=== PATIENT | female | born 1955 | race Caucasian/White ===

== ENCOUNTER → 2018-08-05 | Outpatient (CLI) | payer MEDICARE ==
--- NOTE | 2018-08-06 08:35 | CTL ---
EXAMINATION TYPE: CT Low Dose Lung DATE OF EXAM ORDERED: 08/05/2018 HISTORY: Long-term tobacco use. Lung cancer screening CT DLP: [address] CTDI: 1.72 mGy Automated exposure control for dose reduction was used. SCREENING VISIT: Initial study COMPARISON: None TECHNIQUE: Low dose computed tomography scan was performed through the chest at 1 mm thick sections a nd reconstructed images in the coronal plane at [address] DIAGNOSTIC QUALITY: Satisfactory FINDINGS: LUNG NODULES: None. There is 4 mm calcified nodule or granuloma superior aspect left lower lobe axial image 101. No suspi cious greater than 4 mm parenchymal nodules or masses are identified bilaterally. LUNGS: COPD: Severity: Mild to moderate Fibrosis: Severity: Minimal biapical and bibasilar linear Lymph nodes: None Other findings: None BILATERAL PLEURAL SPACE: Effusion: None Calcification: None Thickening: None Pneumothorax: None Elevated left hemidiaphragm is present. HEART: Heart Size: Normal Coronary calcification: Moderate versus coronary stents. Correlate clinically Pericardial effusion: Small OTHER FINDINGS: Upper abdomen: None Bony thorax: S-shaped scoliosis is present. Mild multilevel spurring is seen. Supraclavicular region: None Other: None IMPRESSION: No suspicious nodules or masses. FOLLOW UP CT CHEST RECOMMENDATION: Annual low-dose lung screening CT CT LUNG RAD: Lung-Rad 2 Benign Appearance or Behavior
== END | disposition home or self-care (01) ==
LOC: RADCTMAIN 15:42
PROVIDERS: ATTEND Family Medicine
DX: Z12.2 Encounter for screening for malignant neoplasm of respiratory organs (principal); Z87.891 Personal history of nicotine dependence

== ENCOUNTER → 2020-04-13 | Outpatient (CLI) | payer MEDICARE ==
[~2020-04-13] MED LIST: REGADENOSON 0.4 MG/5 ML SYRINGE IV ONE
--- NOTE | 2020-04-13 12:54 | EST ---
EXERCISE STRESS AGE: 65 SEX: M HT: 62" WT: 95 lbs. PROTOCOL: Lexiscan Cardiolite STAGE: DURATION OF EXERCISE: HEART RATE REST: 60 BLOOD PRESSURE REST: 150/80 MAXIMUM HEART RATE ACHIEVED: 85 MAXIMUM BLOOD PRESSURE: 161/87 85% MPHR: 100% MPHR: METS: INDICATIONS: Abnormal ECG. CLINICAL INFORMATION: Baseline rhythm is a sinus mechanism, normal axis and intervals, poor R wave progression. Baseline blood pressure 150/85 mmHg. Patient received an injection of Lexiscan. Electrocardiographic monitoring revealed no evidence of diagnostic ischemic ST deviation. Cardiolite was injected per protocol. CONCLUSION: 1. Nondiagnostic electrocardiograph stress testing. 2. Nuclear images will be reported separately. MMODL / IJN: [id number] /
--- NOTE | 2020-04-13 18:07 | NM ---
EXAMINATION TYPE: NM stress lexiscan cardiolite DATE OF EXAM: 04/13/2020 COMPARISON: Lexiscan 08/05/2016 HISTORY: Abnormal EKG TECHNIQUE: After the intravenous administration of 8 mCi Tc 99m Sestamibi - Cardiolite resting SPECT images acquired 55 minutes post injection. The patient received 0.4mg Lexiscan, 25.1 mCi Tc 99m Sestamibi - Stress images obtained [address] injection FINDINGS: Review of stress and rest SPECT images demonstrates reversible perfusion defect of the mid inferior w all. There is GI activity adjacent to the inferior wall, however area of reversible perfusion is conf irmed on Polar map. There is area of decreased activity of the anterior apical wall on rest images wh ich improves on stress, likely breast attenuation artifact. No fixed defects are seen. Gated analys is shows normal wall motion with an estimated left ventricular ejection fraction of 58 %. TID 1.02. IMPRESSION: 1. Reversible ischemia of the mid inferior wall. 2. Ejection fraction 58%.
== END | disposition home or self-care (01) ==
LOC: RADNMMAIN 04-07 08:51
PROVIDERS: ATTEND Family Medicine
DX: I25.9 Chronic ischemic heart disease, unspecified (principal)
CPT/HCPCS: 93017; 78452; A9500; J2785

== ENCOUNTER → 2020-05-08 | Outpatient (CLI) | payer MEDICARE ==
[2020-05-08 14:01] LABS: HGB 11.6 gm/dL (11.4-16.0); Hypochromasia Slight; MCH 29.5 pg (25.0-35.0); MCHC 31.4 g/dL (31.0-37.0); MCV 94.1 fL (80.0-100.0); Mean Platelet Volume 8.5; Platelet Count 213 k/uL (150-450); RBC 3.93 m/uL (3.80-5.40); RDW 15.1 % (11.5-15.5); WBC 11.5 k/uL (3.8-10.6)
[2020-05-08 14:11] LABS: African American GFR (CKD) >90 (>60 ml/min/1.73 sqM); Anion Gap 4 mmol/L; Blood Urea Nitrogen 21 mg/dL (7-17); Carbon Dioxide 30 mmol/L (22-30); Chloride 107 mmol/L (98-107); Non-African American GFR(CKD) >90 (>60 ml/min/1.73 sqM); Potassium 3.9 mmol/L (3.5-5.1); Sodium 141 mmol/L (137-145)
== END | disposition home or self-care (01) ==
LOC: LABPAT 11:56
PROVIDERS: ATTEND Internal Medicine Interventional Cardiology
DX: Z01.818 Encounter for other preprocedural examination (principal); R07.9 Chest pain, unspecified
CPT/HCPCS: 36415; 80051; 82565; 84520; 85027

== ENCOUNTER 2020-05-10 09:36 | Day surgery (SDC) | payer MEDICARE ==
[~2020-05-10 09:36] MED LIST changes: +ALPRAZolam 0.25 MG TAB PO PRN; +ALPRAZolam 0.5 MG TAB PO PRN; +ASPIRIN 325 MG TAB PO STA; +ATORVASTATIN 80 MG TAB PO STA; +NITROGLYCERIN SL TABS 0.4 MG TAB SUBLINGUAL PRN; -REGADENOSON 0.4 MG/5 ML SYRINGE IV ONE; +SODIUM CHLORIDE 0.9% 1,000 ML in EMPTY BAG 1 BAG IV ONE
[2020-05-10] MEDS ORDERED: methylPREDNISolone SOD SUCCI 125 MG/2 ML VIAL ONE (10:08)
[2020-05-10] MEDS ORDERED: diphenhydrAMINE 50 MG/ML 1 ML VIAL ONE (10:08)
[2020-05-10] MEDS ORDERED: diphenhydrAMINE 50 MG/ML 1 ML VIAL IVP ONE (10:12)
[2020-05-10] MEDS ORDERED: methylPREDNISolone SOD SUCCI 125 MG/2 ML VIAL IV STA (10:12)
[2020-05-10] MEDS ORDERED: HYDROmorphone 0.5 MG/0.5 ML SYRINGE IVP STA (11:18)
[2020-05-10] MEDS ORDERED: HYDROmorphone 1 MG/ML 1 ML SYRINGE ONE (11:26)
[2020-05-10] MEDS ORDERED: LIDOCAINE 1% INJ 10MG/ML (20 ML MDV) SQ ONE (12:08)
[2020-05-10] MEDS ORDERED: fentaNYL (PF) 50 MCG/ML 2 ML AMP ONE (12:10)
[2020-05-10] MEDS ORDERED: HEPARIN SODIUM 1,000 UN/ML (10ML VL) IV ONE (12:11)
[2020-05-10] MEDS ORDERED: MIDAZOLAM 2 MG/2 ML VIAL IV ONE (12:11)
[2020-05-10] MEDS ORDERED: fentaNYL (PF) 50 MCG/ML 2 ML AMP IV ONE (12:11)
[2020-05-10] MEDS ORDERED: VERAPAMIL SYRINGE (5 MG/10 ML) INTRAARTER ONE (12:11)
[2020-05-10] MEDS ORDERED: HEPARIN SODIUM 1,000 UN/ML (10ML VL) ONE (12:12)
[2020-05-10] MEDS ORDERED: MIDAZOLAM 2 MG/2 ML VIAL IVP ONE (12:21)
[2020-05-10] MEDS ORDERED: CLOPIDOGREL 75 MG TAB PO ONE (12:26)
[2020-05-10] MEDS ORDERED: CLOPIDOGREL 75 MG TAB ONE (12:26)
[2020-05-10] MEDS ORDERED: IOPAMIDOL-370 100ML BTL INJ ONE (12:36)
[2020-05-10] MEDS ORDERED: NITROGLYCERIN SL TABS 0.4 MG TAB SUBLINGUAL PRN ×2 (12:39→12:40)
[2020-05-10] MEDS ORDERED: CANNABIDIOL TOPICAL PRN (12:39)
[2020-05-10] MEDS ORDERED: ALPRAZolam 0.25 MG TAB PO PRN (12:39)
[2020-05-10] MEDS ORDERED: RX INFO: IV CONTRAST WAS GIVEN 1 EACH MISC MISCELLANE PRN (12:40)
[2020-05-10] MEDS ORDERED: ZOLPIDEM 5 MG TAB PO PRN (12:40)
[2020-05-10] MEDS ORDERED: ATROPINE SULFATE 0.1 MG/ML 10ML SYRINGE IV PRN (12:40)
[2020-05-10] MEDS ORDERED: MAG HYDROX/AL HYDROX/SIMETH 30 ML CUP PO PRN (12:40)
[2020-05-10] MEDS ORDERED: SODIUM CHLORIDE 0.9% 1,000 ML IV SCH (12:45)
--- NOTE | 2020-05-10 14:29 | CC ---
CARDIAC CATHETERIZATION REPORT DATE OF SERVICE: 05/10/2020 PERFORMING PHYSICIAN: Juventino Alex MD. PROCEDURE PERFORMED: 1. Selective right and left coronary angiogram. 2. Left heart catheterization. 3. Successful stenting of the proximal left circumflex using 2.5 x 12 mm Xience MARK with an excellent angiographic results and reduction of stenosis from 70% to 0%. INDICATION: This is a very pleasant, 65-year-old female patient with history of smoking who was experiencing symptoms of chest discomfort and underwent myocardial perfusion imaging stress test and that revealed inferior ischemia. Because of that, a heart catheterization was advised. APPROACH: Right radial artery. COMPLICATION: None. LEVEL OF SEDATION: Moderate with sedation length of 28 minutes. PROCEDURE DESCRIPTION: After obtaining an informed consent, the patient was brought to the cardiac lab animal technician. The right radial artery was cannulated using micropuncture technique and a micropuncture wire passed easily, then I placed a 6-Micronesian sheath 11 cm at the right radial artery. After that, I gave the patient 2 mg of verapamil IA and 5000 units of heparin IV. Selective right and left coronary angiogram performed using JR3.5 and JL3.5 catheters. After that, I did intervene on the left circumflex, please see a separate paragraph for that. After that, I did leave heart catheterization using 5-Micronesian pigtail catheter. The procedure was completed without any complication. SELECTIVE CORONARY ANGIOGRAM: 1. The RCA is a medium caliber vessel. The RCA is chronically occluded in the midportion. 2. The left main is angiographically normal. It bifurcates into LCX, ramus intermedius, and left anterior descending artery. 3. The LCX is a large caliber vessel, it is a codominant vessel. The LCX has a tight lesion in the proximal portion, appeared to be in the range of 70% to 80%. 4. The ramus intermedius is a moderate caliber vessel with mild disease only. 5. The LAD, the proximal, mid and distal LAD appeared to be angiographically normal. The LAD gives rise into a diagonal branch which seems to be angiographically normal. 6. Hemodynamic: The LVEDP about 12 mmHg without significant gradient across the aortic valve. PCI OF THE LEFT CIRCUMFLEX: Anticoagulation was achieved with heparin only with ACT monitoring. The left main was engaged using JL3.5 guide. I did wire the left circumflex using a run-through wire. After that, I did direct stenting of the lesion using 2.5 x 12 mm stent which was Xience where the stent was positioned under fluoroscopy guidance and deployed under 12 atmospheres for 20 seconds with the following angiogram showing excellent angiographic results and the procedure was completed without any complication. CONCLUSION: 1. Chronic total occlusion of the RCA. 2. Severe disease involving the proximal left circumflex. 3. Normal left anterior descending artery. 4. Successful stenting of the left circumflex as described above. POSTPROCEDURE MANAGEMENT: 1. Dual anti-platelet therapy. 2. Risk factors modifications. 3. Follow up with the patient. MMODL / IJN: [id number] /
[2020-05-10] MEDS: HYDROcodone/APAP 10-325MG 1 EACH TAB PO PRN ×2 (15:13→19:30)
[2020-05-10] MEDS: NICOTINE 21MG/24HR PATCH TRANSDERM SCH (18:05)
[2020-05-10] MEDS ORDERED: ATORVASTATIN 40 MG TAB PO SCH (21:00)
[2020-05-10] MEDS ORDERED: ZOLPIDEM 10 MG TAB PO SCH (21:00)
[2020-05-10] MEDS ORDERED: traZODone HCL 100 MG TAB PO SCH (21:00)
[2020-05-10] MEDS ORDERED: ZOLPIDEM 5 MG TAB PO SCH (22:00)
[2020-05-11] MEDS: HYDROcodone/APAP 10-325MG 1 EACH TAB PO PRN (03:57)
[2020-05-11 04:38] VITALS: RESP 16
[2020-05-11] MEDS: NICOTINE 21MG/24HR PATCH TRANSDERM SCH (07:46)
[2020-05-11 07:57] LABS: Basophils % (A) 0 %; Eosinophils % (A) 0 %; HCT 35.5 % (34.0-46.0); HGB 11.1 gm/dL (11.4-16.0); Lymphocytes # (A) 1.4 k/uL (1.0-4.8); Lymphocytes % (A) 8 %; MCH 29.4 pg (25.0-35.0); MCHC 31.3 g/dL (31.0-37.0); MCV 93.9 fL (80.0-100.0); Monocytes # (A) 0.4 k/uL (0-1.0); Monocytes % (A) 2 %; Neutrophils # (A) 14.8 k/uL (1.3-7.7); Neutrophils % (A) 89 %; Platelet Count 199 k/uL (150-450); RBC 3.78 m/uL (3.80-5.40); RDW 15.1 % (11.5-15.5); WBC 16.6 k/uL (3.8-10.6)
[2020-05-11 08:09] LABS: African American GFR (CKD) >90 (>60 ml/min/1.73 sqM); Anion Gap 5 mmol/L; Blood Urea Nitrogen 16 mg/dL (7-17); Calcium 8.7 mg/dL (8.4-10.2); Carbon Dioxide 26 mmol/L (22-30); Chloride 107 mmol/L (98-107); Glucose 194 mg/dL (74-99); Non-African American GFR(CKD) >90 (>60 ml/min/1.73 sqM); Potassium 3.5 mmol/L (3.5-5.1); Sodium 138 mmol/L (137-145)
[2020-05-11] MEDS ORDERED: HYDROcodone/APAP 10-325MG 1 EACH TAB PO PRN (08:14)
[2020-05-11] MEDS ORDERED: FAMOTIDINE 20 MG TAB PO SCH (09:00)
[2020-05-11] MEDS ORDERED: ASPIRIN 81 MG PO SCH (09:00)
[2020-05-11] MEDS ORDERED: METOPROLOL SUCCINATE (ER) 100 MG TAB.ER.24H PO SCH (09:00)
[2020-05-11 09:26] VITALS: BMI 17.5
[2020-05-11 09:27] VITALS: BP 153/78; PULSE 73; TEMP 97.5
[2020-05-11] MEDS ORDERED: CLOPIDOGREL 75 MG TAB PO SCH (12:00)
--- NOTE | 2020-05-11 12:55 | DS ---
DISCHARGE SUMMARY ADMISSION DATE: 05/10/2020. DISCHARGE DATE: 05/11/2020 BRIEF HISTORY: This is a very pleasant 65-year-old female patient who underwent yesterday a heart catheterization and stenting of the proximal left circumflex coronary artery. The procedure was performed from the right radial artery. The patient is going to be discharged home on dual anti-platelet therapy and I will follow up with the patient next week in the office. MMSJL / SIENNAN: [id number] /
== END 2020-05-11 10:06 | disposition home or self-care (01) ==
LOC: CATHCVL 09:36 → 3NCARDOBS 17:40 → CATHCVL 05-11 10:06
PROVIDERS: ATTEND Internal Medicine Interventional Cardiology
DX: I25.110 Atherosclerotic heart disease of native coronary artery with unstable angina pectoris (principal); I25.82 Chronic total occlusion of coronary artery; I10 Essential (primary) hypertension; R94.39 Abnormal result of other cardiovascular function study; E78.00 Pure hypercholesterolemia, unspecified; F17.210 Nicotine dependence, cigarettes, uncomplicated; E78.5 Hyperlipidemia, unspecified; Z91.048 Other nonmedicinal substance allergy status; Z91.09 Other allergy status, other than to drugs and biological substances; Z79.82 Long term (current) use of aspirin; Z79.899 Other long term (current) drug therapy; Z88.6 Allergy status to analgesic agent
CPT/HCPCS: 93458; 85347; 80048; 85025; C9600; C1887; C1769 ×2; C1874; S4990 ×2; J2250; J1200; J2930; J2001; J3010; J1644; J1170; Q9967

== ENCOUNTER 2020-08-16 19:02 | Observation (INO) | payer MEDICARE ==
[2020-08-16] MEDS ORDERED: ONDANSETRON 4 MG/2 ML VIAL IVP STA (19:20)
[2020-08-16] MEDS ORDERED: SODIUM CHLORIDE 0.9% 1,000 ML IV STA ×2 (19:20)
--- NOTE | 2020-08-16 19:23 | ED ---
Chest Pain HPI - General Chief Complaint: Chest Pain Stated Complaint: post heart cath-chest & neck pain Time Seen by Provider: 08/16/20 19:16 Source: patient, RN notes reviewed Mode of arrival: wheelchair Limitations: no limitations - History of Present Illness Initial Comments: This is a 65-year-old female with a history of smoking for many years with no diagnosis of COPD or emphysema also history of heart cath with stent in January of this year who presents with 4 days of nausea and dry heaves and now is sharp midsternal chest pains (the right was brought in by EMS. She does feel somewhat lightheaded dizzy and has a walker. No overt fevers chills or sweats. The pain does get worse when she moves or tries to take a deep breath. No trauma repor pma no other complaints or modifying factors at this time MD Complaint: chest pain, other - Related Data Home Medications Medication Instructions Recorded Confirmed Estradiol 2 mg PO DAILY 06/05/16 08/16/20 Famotidine 20 mg PO DAILY 06/05/16 08/16/20 Aspirin [Adult Low Dose Aspirin EC] 81 mg PO DAILY 05/05/20 08/16/20 Atorvastatin [Lipitor] 40 mg PO HS 05/05/20 08/16/20 Cannabidiol (Cbd) [Epidiolex] 1 dose TOPICAL DAILY PRN 05/05/20 08/16/20 HYDROcodone/APAP 10-325MG [[place] 1 tab PO QID PRN 05/05/20 08/16/20 10-325] Metoprolol Succinate (ER) [Toprol 100 mg PO DAILY 05/05/20 08/16/20 XL] Nitroglycerin Sl Tabs [Nitrostat] 0.4 mg SUBLINGUAL Q5M PRN 05/05/20 08/16/20 Zolpidem [Ambien] 10 mg PO HS 05/05/20 08/16/20 traZODone HCL 100 mg PO HS 05/05/20 08/16/20 ALPRAZolam [Xanax] 0.25 mg PO TID PRN 05/10/20 08/16/20 lisinopriL [Zestril] 5 mg PO DAILY 08/16/20 08/16/20 Previous Rx's Medication Instructions Recorded Clopidogrel [Plavix] 75 mg PO DAILY #90 tab 05/11/20 Allergies Allergy/AdvReac Type Severity Reaction Status Date / Time ibuprofen AdvReac NIGHTMARES Verified 08/16/20 20:44 Iodinated Contrast Media AdvReac Nausea & Verified 08/16/20 20:44 [Iodinated Contrast Media - Vomiting IV Dye] povidone-iodine AdvReac Nausea & Verified 08/16/20 20:44 [From Betadine] Vomiting soap [From Betadine] AdvReac Nausea & Verified 08/16/20 20:44 Vomiting Review of Systems ROS Statement: Those systems with pertinent positive or pertinent negative responses have been documented in the HPI. ROS Other: All systems not noted in ROS Statement are negative. EKG Findings - EKG Results: EKG: interpreted by DAWIT, sinus rhythm (Normal sinus rhythm 64. We'll 124 QRS duration 82 QT since QTC 404/416 possible left atrial enlargement no acute ST-T wave changes) Past Medical History Past Medical History: Chest Pain / Angina, COPD, Fibromyalgia, GERD/Reflux, Hyperlipidemia, Hypertension Additional Past Medical History / Comment(s): bulging disc back, scolosis, degenerative bone disease, curvature of skin History of Any Multi-Drug Resistant Organisms: None Reported Past Surgical History: Back Surgery, Breast Surgery, Hysterectomy, Orthopedic Surgery Additional Past Surgical History / Comment(s): LT BREAST BX stent to Left Cx by Dr Alex on 05/10/20 RCA totally occluded. LT KNEECAP SX. BACK INJECTIONS. SINUS SX. RT CTR Past Anesthesia/Blood Transfusion Reactions: No Reported Reaction Past Psychological History: Anxiety, Depression Smoking Status: Current every day smoker Past Alcohol Use History: None Reported Past Drug Use History: None Reported - Past Family History Mother Family Medical History: Cancer General Exam - General Exam Comments Initial Comments: Is a well-developed asthenic appearing female who is awake alert oriented 3 Limitations: no limitations General appearance: alert, anxious Head exam: Present: atraumatic, normocephalic, normal inspection Eye exam: Present: normal appearance, PERRL, EOMI. Absent: scleral icterus, conjunctival injection, periorbital swelling ENT exam: Present: mucous membranes dry Neck exam: Present: normal inspection, full ROM, other (No stridor JVD or bruits). Absent: tenderness, meningismus, lymphadenopathy Respiratory exam: Present: chest wall tenderness (Reproducible tenderness palpation on the right costal sternal costochondral margin no step-off or crepitation), decreased breath sounds. Absent: respiratory distress, wheezes, rales, rhonchi, stridor Cardiovascular Exam: Present: regular rate, normal rhythm, normal heart sounds. Absent: systolic murmur, diastolic murmur, rubs, gallop, clicks GI/Abdominal exam: Present: soft, normal bowel sounds. Absent: distended, tenderness, guarding, rebound, rigid Extremities exam: Present: normal inspection, full ROM, normal capillary refill. Absent: tenderness, pedal edema, joint swelling, calf tenderness Back exam: Present: normal inspection Neurological exam: Present: alert, oriented X3, CN II-XII intact Psychiatric exam: Present: normal affect, normal mood Skin exam: Present: warm, dry, intact, normal color. Absent: rash Course Vital Signs 08/16/20 08/16/20 08/16/20 19:10 19:20 21:13 Temperature 97.5 F L Pulse Rate 76 72 Pulse Rate [ 72 Lpn Private Duty ] Respiratory 16 20 Rate Blood Pressure 198/99 167/89 O2 Sat by Pulse 98 99 Oximetry - Reevaluation(s) Reevaluation #1: 08/16/20 22:28 Patient has had no further chest pain CAT scan was performed and is negative for PE. Chest Pain MDM - MDM I did review the imaging and report no acute findings. I did discuss case the patient family as well as Dr. Orellana. Patient will be admitted for further evaluation with cardiology consultation Critical Care Time Critical Care Time: Yes Total Critical Care Time: 31 Critical Care Time: 31 minutes of critical care time which includes initial presentation with history physical labs x-rays discussed with paramedics. Review of old charting multiple evaluations the patient discussed with the patient family regarding findings discussed with the main physician admission orders and documentation of the above Disposition Clinical Impression: Chest pain, Unstable angina pectoris Disposition: ADMITTED IP TO THIS HOSP Condition: Fair Referrals: Dakota Orellana MD [Primary Care Provider] - 1-2 days
[2020-08-16] MEDS ORDERED: HYDROmorphone 1 MG/ML 1 ML SYRINGE IVP STA (19:59)
[2020-08-16 20:07] LABS: Basophils # (A) 0.1 k/uL (0-0.2); Basophils % (A) 1 %; Eosinophils # (A) 0.1 k/uL (0-0.7); Eosinophils % (A) 1 %; HCT 41.9 % (34.0-46.0); Lymphocytes # (A) 4.1 k/uL (1.0-4.8); Lymphocytes % (A) 36 %; MCHC 33.5 g/dL (31.0-37.0); MCV 95.7 fL (80.0-100.0); Mean Platelet Volume 7.5; Monocytes # (A) 0.5 k/uL (0-1.0); Monocytes % (A) 4 %; Neutrophils # (A) 6.3 k/uL (1.3-7.7); Neutrophils % (A) 56 %; Platelet Count 318 k/uL (150-450); RBC 4.38 m/uL (3.80-5.40); RDW 15.7 % (11.5-15.5); WBC 11.2 k/uL (3.8-10.6)
[2020-08-16 20:22] LABS: ALT 21 U/L (4-34); AST 42 U/L (14-36); African American GFR (CKD) >90 (>60 ml/min/1.73 sqM); Alkaline Phosphatase 67 U/L (38-126); Anion Gap 6 mmol/L; Blood Urea Nitrogen 23 mg/dL (7-17); Calcium 9.4 mg/dL (8.4-10.2); Carbon Dioxide 23 mmol/L (22-30); Chloride 110 mmol/L (98-107); Creatine Kinase 59 U/L (30-135); Glucose 96 mg/dL (74-99); Lipase 325 U/L (23-300); Magnesium 1.9 mg/dL (1.6-2.3); Non-African American GFR(CKD) 83 (>60 ml/min/1.73 sqM); Potassium 3.7 mmol/L (3.5-5.1); Sodium 139 mmol/L (137-145); Total Bilirubin 0.4 mg/dL (0.2-1.3); Total Protein 7.1 g/dL (6.3-8.2)
--- NOTE | 2020-08-16 20:24 | XR ---
EXAMINATION TYPE: XR chest 2V DATE OF EXAM: 08/16/2020 COMPARISON: 10/18/2014. HISTORY: Chest pain. TECHNIQUE: Frontal and lateral views of the chest are obtained. FINDINGS: There is no focal air space opacity, pleural effusion, or pneumothorax seen. The cardiac silhouette size is within normal limits. The osseous structures are intact. IMPRESSION: No acute cardiopulmonary process.
--- NOTE | 2020-08-16 20:25 | XR ---
EXAM: Abdomen radiograph. HISTORY: Pain. TECHNIQUE: Supine AP view. COMPARISON: None available. FINDINGS: There are nondilated bowel loops with a nonobstructive pattern. There are no pathologic calcification s. No acute osseous abnormality seen. IMPRESSION: Nonobstructive bowel gas pattern.
[2020-08-16 20:26] LABS: Prothrombin Time 10.3 sec (9.0-12.0)
[2020-08-16 20:27] LABS: Partial Thromboplastin Time 23.2 sec (22.0-30.0)
[2020-08-16 20:39] LABS: D-Dimer 0.97 mg/L FEU (<0.60)
[2020-08-16] MEDS ORDERED: methylPREDNISolone SOD SUCCI 125 MG/2 ML VIAL IV STA (20:58)
[2020-08-16] MEDS ORDERED: FAMOTIDINE 20 MG/2 ML VIAL IV STA (20:58)
[2020-08-16] MEDS ORDERED: diphenhydrAMINE 50 MG/ML 1 ML VIAL IVP STA (20:58)
--- NOTE | 2020-08-16 21:56 | CT ---
EXAMINATION TYPE: CT angio chest DATE OF EXAM: 08/16/2020 9:44 PM COMPARISON: Same day radiographs. HISTORY: Chest pain elevated d-dimer CT DLP: 186.6 mGycm Automated exposure control for dose reduction was used. CONTRAST: CTA scan of the thorax is performed with IV Contrast, patient injected with 100 mL of Isovue 370, pul monary embolism protocol. MIP images are created and reviewed. FINDINGS: LUNGS: There is mild dependent atelectasis. Otherwise the lungs are grossly clear, there is no concer hiral parenchymal mass or nodule identified. There is moderate emphysematous changes. There is no ple ural effusion or pneumothorax seen. The tracheobronchial tree is patent. MEDIASTINUM: There is satisfactory enhancement of the pulmonary artery and its branches, there is no CT evidence for pulmonary embolism. There are no greater than 1 cm hilar or mediastinal lymph nodes. No pericardial effusion is seen. OTHER: No additional significant abnormality is seen. IMPRESSION: NO ACUTE PULMONARY EMBOLUS OR OTHER CARDIOPULMONARY ABNORMALITY.
[2020-08-16] MEDS ORDERED: NITROGLYCERIN SL TABS 0.4 MG TAB SUBLINGUAL PRN (22:30)
[2020-08-16] MEDS ORDERED: HEPARIN SOD,PORK IN 0.45% NACL 25,000 UNIT in 0.45% NACL 1 250ML.BAG IV SCH (22:30)
[2020-08-16] MEDS ORDERED: HEPARIN SODIUM,PORCINE 5,000 UNIT/ML 1 ML VIAL IV ONE (22:30)
[2020-08-16] MEDS ORDERED: ALPRAZolam 0.25 MG TAB PO PRN (22:33)
[2020-08-17 02:27] LABS: Cholesterol 115 mg/dL (<200); HDL Cholesterol 44 mg/dL (40-60); LDL Cholesterol,Calculated 59 mg/dL (0-99); Triglycerides 62 mg/dL (<150)
[2020-08-17] MEDS: HYDROcodone/APAP 10-325MG 1 EACH TAB PO PRN ×4 (04:33→20:19)
[2020-08-17] MEDS: FAMOTIDINE 20 MG TAB PO SCH (08:17)
[2020-08-17] MEDS: METOPROLOL SUCCINATE (ER) 100 MG TAB.ER.24H PO SCH (08:17)
[2020-08-17] MEDS: CLOPIDOGREL 75 MG TAB PO SCH (08:18)
[2020-08-17] MEDS: lisinopriL 5 MG TAB PO SCH (08:18)
[2020-08-17] MEDS ORDERED: ASPIRIN 325 MG TAB PO SCH (09:00)
[2020-08-17] MEDS ORDERED: DOBUTamine DRIP for NUC MED 500 MG in DEXTROSE/WATER 1 250ML.BAG IV ONE (09:00)
[2020-08-17] MEDS: ASPIRIN 81 MG PO SCH (09:12)
[2020-08-17] MEDS: NICOTINE 14MG/24HR PATCH TRANSDERM SCH (09:12)
--- NOTE | 2020-08-17 10:16 | P.CRDCN ---
History of Present Illness History of present illness: HISTORY OF PRESENTING ILLNESS This is a pleasant 65-year-old female past medical history significant for COPD, coronary artery disease s/p recent PCI 04/2020, hypertension, dyslipid emia and chronic nicotine dependence. She follows in the office with Dr. Alex, she actually had a tele-visit with him yesterday. We have been asked to see in consultation for chest pain. She states for the previous 4 days she has been experiencing abdominal pain, nausea, dry heaving and no appetite. No actual vomiting but persistent nausea. Yesterday she started feeling a discomfort in the epigastric/mid-sternal chest area that she felt radiated to her left jaw. Given her recent stent placement she became concerned prompting her to come to the ER. She states in the past when she needed a stent her pain was different. She denies associated shortness of breath, dizziness, palpitations or diaph oresis. The chest pain has resolved. In April of this year she underwent cardiac catheterization revealing stenosis of the proximal circumflex artery, LAD was angiographically normal and the RCA was chronically occluded in the mid- portion. She underwent successful PCI of the proximal circumflex at that time. She has been compliant with her dual anti-platelet therapy. DIAGNOSTICS EKG reveals sinus mechanism with no acute ST or T-wave abnormalities. Chest xray negative for an acute cardiopulmonary process. CTA negative for pulmonary embolism with grossly clear lungs. KUB revealed a nonobstructive gas pattern. Laboratory reviewed, WBC 11.2, hemoglobin 14, platelets 318, d-dimer 0.97, sodium 139, potassium 3.7, creatinine 0.76,magnesium 1.9, cardiac enzymes negative 3, NT proBNP 302, LDL 59, HDL 44 and lipase 325. Current cardiac medications include lisinopril 5 mg daily, atorvastatin 40 mg daily, toprol 100 mg daily, aspirin 81 mg daily and plavix 75 mg daily. REVIEW OF SYSTEMS At the time of my exam: CONSTITUTIONAL: Denies fever or chills. CARDIOVASCULAR: Denies chest pain, shortness of breath, orthopnea, PND or palpitations. RESPIRATORY: Denies cough. GASTROINTESTINAL: Denies abdominal pain, diarrhea, constipation, nausea or vomiting. MUSCULOSKELETAL: Denies myalgias. NEUROLOGIC: Denies numbness, tingling or weakness. ENDOCRINE: Denies fatigue, weight change, polydipsia or polyurina. GENITOURINARY: Denies burning, hematuria or urgency with micturation. HEMATOLOGIC: Denies history of anemia or bleeding. PHYSICAL EXAMINATION Blood pressure 110/65 heart rate 53 afebrile and maintaining oxygen saturation on room air. CONSTITUTIONAL: No apparent distress. HEENT: Head is normocephalic. Pupils are equal, round. Sclerae anicteric. Mucous membranes of the mouth are moist. No JVD. No carotid bruit. CHEST EXAMINATION: Lungs are clear to auscultation. No chest wall tenderness is noted on palpation or with deep breathing. Diminished bilaterally. HEART EXAMINATION: Regular rate and rhythm. S1, S2 heard. No murmurs, gallops or rub. ABDOMEN: Soft, nontender. Positive bowel sounds. EXTREMITIES: 2+ peripheral pulses, no lower extremity edema and no calf tenderness. NEUROLOGIC EXAMINATION: Patient is awake, alert and oriented x3. 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 However given her recent PCI we will pursue stress testing to assess for stress induced ischemia. Obtain 2D echocardiogram and doppler study to assess cardiac structure and function. Continue dual anti-platelet therapy as previously ordered. Smoking cessation recommended. If stress test is normal she can be discharged from a cardiac perspective. Follow up with Dr. Alex upon discharge. Ongoing management and evaluation per PCP of GI etiology of symptoms. Thank you kindly for this consultation. Nurse Practitioner note has been reviewed, I agree with a documented findings and plan of care. Patient was seen and examined. Past Medical History Past Medical History: Chest Pain / Angina, COPD, Fibromyalgia, GERD/Reflux, Hyperlipidemia, Hypertension Additional Past Medical History / Comment(s): bulging disc back, scolosis, degenerative bone disease, curvature of skin History of Any Multi-Drug Resistant Organisms: None Reported Past Surgical History: Back Surgery, Breast Surgery, Hysterectomy, Orthopedic Surgery Additional Past Surgical History / Comment(s): LT BREAST BX stent to Left Cx by Dr Alex on 05/10/20 RCA totally occluded. LT KNEECAP SX. BACK INJECTIONS. SINUS SX. RT CTR Past Anesthesia/Blood Transfusion Reactions: No Reported Reaction Past Psychological History: Anxiety, Depression Smoking Status: Current every day smoker Past Alcohol Use History: None Reported Past Drug Use History: None Reported - Past Family History Mother Family Medical History: Cancer Medications and Allergies Home Medications Medication Instructions Recorded Confirmed Type Estradiol 2 mg PO DAILY 06/05/16 08/16/20 History Famotidine 20 mg PO DAILY 06/05/16 08/16/20 History Aspirin [Adult Low Dose Aspirin EC] 81 mg PO DAILY 05/05/20 08/16/20 History Atorvastatin [Lipitor] 40 mg PO HS 05/05/20 08/16/20 History Cannabidiol (Cbd) [Epidiolex] 1 dose TOPICAL DAILY PRN 05/05/20 08/16/20 History HYDROcodone/APAP 10-325MG [[place] 1 tab PO QID PRN 05/05/20 08/16/20 History 10-325] Metoprolol Succinate (ER) [Toprol 100 mg PO DAILY 05/05/20 08/16/20 History XL] Nitroglycerin Sl Tabs [Nitrostat] 0.4 mg SUBLINGUAL Q5M PRN 05/05/20 08/16/20 History Zolpidem [Ambien] 10 mg PO HS 05/05/20 08/16/20 History traZODone HCL 100 mg PO HS 05/05/20 08/16/20 History ALPRAZolam [Xanax] 0.25 mg PO TID PRN 05/10/20 08/16/20 History Clopidogrel [Plavix] 75 mg PO DAILY #90 tab 05/11/20 08/16/20 Rx lisinopriL [Zestril] 5 mg PO DAILY 08/16/20 08/16/20 History Allergies Allergy/AdvReac Type Severity Reaction Status Date / Time ibuprofen AdvReac NIGHTMARES Verified 08/16/20 20:44 Iodinated Contrast Media AdvReac Nausea & Verified 08/16/20 20:44 [Iodinated Contrast Media - Vomiting IV Dye] povidone-iodine AdvReac Nausea & Verified 08/16/20 20:44 [From Betadine] Vomiting soap [From Betadine] AdvReac Nausea & Verified 08/16/20 20:44 Vomiting Physical Exam Vitals: Vital Signs Temp Pulse Pulse Resp BP Pulse Ox 08/17/20 05:26 98.1 F 53 L 16 110/65 98 08/17/20 04:06 97.4 F L 55 L 18 135/74 98 08/16/20 23:21 67 20 149/84 96 08/16/20 21:13 72 20 167/89 99 08/16/20 19:20 72 08/16/20 19:10 97.5 F L 76 16 198/99 98 Intake and Output 08/16/20 08/17/20 08/17/20 22:59 06:59 14:59 Intake Total 41.605 Balance 41.605 Intake: Intake, IV Titration 41.605 Amount Heparin Sod,Pork in 0.45% 41.605 NaCl 25,000 unit In 0.45 % NaCl 1 250ml.bag @ 12 UNITS/KG/HR 5.334 mls/hr IV .Q[facility]H [facility] Rx#: [id number] Other: Weight 44.452 kg Results 08/16/20 19:45 08/16/20 19:45 Cardiac Enzymes 08/16/20 08/16/20 08/16/20 Range/Units 19:45 19:45 22:46 AST 42 H (14-36) U/L Troponin I <0.012 <0.012 (0.000-0.034) ng/mL 08/17/20 Range/Units 01:33 AST (14-36) U/L Troponin I <0.012 (0.000-0.034) ng/mL Coagulation 08/16/20 08/17/20 Range/Units 19:45 05:22 PT 10.3 (9.0-12.0) sec APTT 23.2 76.3 H (22.0-30.0) sec Lipids 08/17/20 Range/Units 01:33 Triglycerides 62 (<150) mg/dL Cholesterol 115 (<200) mg/dL HDL Cholesterol 44 (40-60) mg/dL CBC 08/16/20 Range/Units 19:45 WBC 11.2 H (3.8-10.6) k/uL RBC 4.38 (3.80-5.40) m/uL Hgb 14.0 (11.4-16.0) gm/dL Hct 41.9 (34.0-46.0) % Plt Count 318 (150-450) k/uL Comprehensive Metabolic Panel 08/16/20 Range/Units 19:45 Sodium 139 (137-145) mmol/L Potassium 3.7 (3.5-5.1) mmol/L Chloride 110 H (98-107) mmol/L Carbon Dioxide 23 (22-30) mmol/L BUN 23 H (7-17) mg/dL Creatinine 0.76 (0.52-1.04) mg/dL Glucose 96 (74-99) mg/dL Calcium 9.4 (8.4-10.2) mg/dL AST 42 H (14-36) U/L ALT 21 (4-34) U/L Alkaline Phosphatase 67 (38-126) U/L Total Protein 7.1 (6.3-8.2) g/dL Albumin 4.0 (3.5-5.0) g/dL Current Medications Generic Name Dose Route Start Last Admin Trade Name Freq PRN Reason Stop Dose Admin Hydrocodone Bitart/Acetaminophen 1 each 08/16/20 22:33 08/17/20 09:16 Hydrocodone/Apap 10-325mg 1 Each Tab PO 1 each QID PRN Administration Pain Alprazolam 0.25 mg 08/16/20 22:33 08/16/20 23:21 Alprazolam 0.25 Mg Tab PO 0.25 mg TID PRN Administration Anxiety Aspirin 81 mg 08/17/20 09:00 08/17/20 09:12 Aspirin 81 Mg PO 81 mg DAILY JAKE Administration Atorvastatin Calcium 40 mg 08/17/20 21:00 Atorvastatin 40 Mg Tab PO HS JAKE Clopidogrel Bisulfate 75 mg 08/17/20 09:00 08/17/20 08:18 Clopidogrel 75 Mg Tab PO 75 mg DAILY JAKE Administration Estradiol 2 mg 08/17/20 09:00 08/17/20 08:16 Estradiol 0.5 Mg Tab PO 2 mg DAILY JAKE Administration Famotidine 20 mg 08/17/20 09:00 08/17/20 08:17 Famotidine 20 Mg Tab PO 20 mg DAILY JAKE Administration Dobutamine HCl/Dextrose 500 mg 250 mls @ 13.336 mls/hr 08/17/20 09:00 / IV Solution IV 08/18/20 03:44 .[id number] ONE Protocol 10 MCG/KG/MIN Lisinopril 5 mg 08/17/20 09:00 08/17/20 08:18 Lisinopril 5 Mg Tab PO 5 mg DAILY JAKE Administration Metoprolol Succinate 100 mg 08/17/20 09:00 11/19/20 08:17 Metoprolol Succinate (Er) 100 Mg Tab.Er.24h PO 100 mg DAILY JAKE Administration Nicotine 1 patch 08/17/20 09:00 08/17/20 09:12 Nicotine 14mg/24hr Patch TRANSDERM 1 patch DAILY JAKE Administration Nitroglycerin 0.4 mg 08/16/20 22:30 Nitroglycerin Sl Tabs 0.4 Mg Tab SUBLINGUAL Q5M PRN Chest Pain Trazodone HCl 100 mg 08/17/20 21:00 Trazodone Hcl 100 Mg Tab PO HS JAKE Zolpidem Tartrate 10 mg 08/17/20 21:00 Zolpidem 5 Mg Tab PO HS JAKE Intake and Output 08/16/20 08/17/20 08/17/20 22:59 06:59 14:59 Intake Total 41.605 Balance 41.605 Intake: Intake, IV Titration 41.605 Amount Heparin Sod,Pork in 0.45% 41.605 NaCl 25,000 unit In 0.45 % NaCl 1 250ml.bag @ 12 UNITS/KG/HR 5.334 mls/hr IV .Q24H [facility] Rx#: [id number] Other: Weight 44.452 kg 08/16/20 19:45 08/16/20 19:45
[2020-08-17] MEDS ORDERED: METOPROLOL TARTRATE 5 MG/5 ML VIAL IVP ONE (10:45)
[2020-08-17] MEDS ORDERED: ATROPINE SULFATE 0.1 MG/ML 10ML SYRINGE ONE (10:45)
--- NOTE | 2020-08-17 10:47 | ECHOF ---
Referral Reason:cp MEASUREMENTS -------- HEIGHT: 157.5 cm WEIGHT: 44.9 kg BP: RVIDd: 2.2 cm (< 3.3) IVSd: 0.8 cm (0.6 - 1.1) LVIDd: 3.5 cm (3.9 - 5.3) LVPWd: 1.0 cm (0.6 - 1.1) IVSs: 1.3 cm LVIDs: 2.3 cm LVPWs: 1.3 cm LA Diam: 4.3 cm (2.7 - 3.8) LAESV Index (A-L): 31.96 ml/m Ao Diam: 3.1 cm (2.0 - 3.7) AV Cusp: 1.8 cm (1.5 - 2.6) LA Diam: 3.6 cm (2.7 - 3.8) MV EXCURSION: 18.742 mm (> 18.000) MV EF SLOPE: 113 mm/s (70 - 150) EPSS: 0.4 cm MV E Ricardo: 0.63 m/s MV DecT: 198 ms MV A Ricardo: 0.41 m/s MV E/A Ratio: 1.52 RAP: 5.00 mmHg RVSP: 29.40 mmHg FINDINGS -------- Sinus rhythm. This was a technically good study. LV size, wall thickness and systolic function are normal, with an EF greater than 55%. The left lg tricular size is normal. The right ventricle is normal in size. The left atrial size is normal. The right atrial size is normal. The aortic valve is trileaflet, and appears structurally normal. No aortic stenosis or regurgitation. Mild mitral regurgitation is present. Mild tricuspid regurgitation present. Right ventricular systolic pressure is normal at < 35 mmHg. There is no pulmonic regurgitation present. The aortic root size is normal. There is no pericardial effusion. CONCLUSIONS -------- 1. LV size, wall thickness and systolic function are normal, with an EF greater than 55%. 2. The left ventricular size is normal. 3. The right ventricle is normal in size. 4. The left atrial size is normal. 5. The right atrial size is normal. 6. Mild mitral regurgitation is present. 7. Mild tricuspid regurgitation present. 8. There is no pulmonic regurgitation present. 9. The aortic root size is normal. 10. There is no pericardial effusion. SCHOOL CLEANER: Bridgett Esquivel RDCS
--- NOTE | 2020-08-17 13:43 | ECHOS ---
STRESS ECHOCARDIOGRAM LUMASON: - Vial INDICATIONS: Chest pain. MEDICATIONS: BASELINE HEART RATE: 54 BASELINE BLOOD PRESSURE: 119/70 MAXIMUM HEART RATE: 156 MAXIMUM BLOOD PRESSURE: 197/108 85% MPHR: 132 100% MPHR: 155 METS: N/A MAXIMUM STAGE REACHED: V TOTAL EXERCISE TIME: 13:08 CLINICAL INFORMATION: Baseline EKG shows sinus rhythm, normal axis, normal intervals. Patient was given intravenous dobutamine over a period of 13 minutes as per protocol. The patient also received 0.5 mg of atropine, achieved 85% of predicted maximal heart rate. Did not have any significant ST segment depression. Baseline echo shows normal left ventricular size, wall motion and systolic function. Post dobutamine infusion there is normal hyperdynamic response of all segments of myocardium noted. CONCLUSION: 1. Negative stress test by EKG criteria. 2. Negative dobutamine echo. MATHEUS / SIENNAN: [id number] /
[2020-08-17 15:00] VITALS: BMI 17.9
--- NOTE | 2020-08-17 17:32 | HP ---
HISTORY AND PHYSICAL This patient is a 65-year-old white female who has a strong family history of heart disease and nicotine addiction. She was getting chest pain radiating up to her neck as well as some shortness of breath. She was also complaining of some epigastric midsternal area and some vomiting at home, but this was different than the pain going to her neck. In April of this year she had cardiac catheterizations, had stenosis of the proximal circumflex artery. LAD was normal and RCA was occluded in the mid portion. She had PCI of the proximal circumflex at that time. She is compliant with her dual antiplatelet therapy but continues to smoke. CTA was negative for pulmonary embolism with grossly clear lungs. KUB showed nonobstructive bowels. Chest x-ray showed no acute pulmonary process. EKG showed no ST-T changes. REVIEW OF SYSTEMS: Fourteen-point review of systems negative except for mentioned in HPI. PHYSICAL EXAMINATION: Blood pressure 110 over 60s, heart rate in the 50s. Oxygenation is 97 on room air. CARDIOVASCULAR: S1, S2. LUNGS: Clear. GI: Soft. PSYCH: Flat mood and affect. She is crying. She appears to be depressed for some reason. NEUROLOGIC: Alert and oriented x3. EXTREMITIES: Two plus peripheral pulses. ABDOMEN: Soft. Positive bowel sounds. ASSESSMENT: 1. Chest pain atypical for angina. 2. Coronary artery disease, status post percutaneous coronary intervention of circumflex with INSTRUCTIONAL SPECIALIST of the RCA. 3. Abdominal pain, nausea. 4. Chronic obstructive pulmonary disease. 5. Hypertension. 6. Dyslipidemia. 7. Nicotine addiction. Smoking cessation. Stress test. Echo. Continue dual antiplatelets. Please see further orders. Will start depression pills, as she appears to be depressed. MMODL / IJN: [id number] /
[2020-08-17] MEDS: SERTRALINE 50 MG TAB PO SCH (20:22)
[2020-08-17] MEDS ORDERED: ATORVASTATIN 40 MG TAB PO SCH (21:00)
[2020-08-17] MEDS ORDERED: ZOLPIDEM 5 MG TAB PO SCH (21:00)
[2020-08-17] MEDS ORDERED: traZODone HCL 100 MG TAB PO SCH (21:00)
[2020-08-18] MEDS: HYDROcodone/APAP 10-325MG 1 EACH TAB PO PRN ×3 (02:46→14:21)
[2020-08-18] MEDS: METOPROLOL SUCCINATE (ER) 100 MG TAB.ER.24H PO SCH (08:45)
[2020-08-18] MEDS: NICOTINE 14MG/24HR PATCH TRANSDERM SCH (08:45)
[2020-08-18] MEDS: lisinopriL 5 MG TAB PO SCH (08:46)
[2020-08-18] MEDS: FAMOTIDINE 20 MG TAB PO SCH (08:46)
[2020-08-18] MEDS: CLOPIDOGREL 75 MG TAB PO SCH (08:46)
[2020-08-18] MEDS: SERTRALINE 50 MG TAB PO SCH (08:46)
[2020-08-18] MEDS: ASPIRIN 81 MG PO SCH (08:46)
[2020-08-18 10:05] VITALS: BP 127/65; PULSE 68; RESP 18; TEMP 98
--- NOTE | 2020-09-04 06:11 | DS ---
DISCHARGE SUMMARY DATE OF ADMISSION: 08/16/2020 DATE OF DISCHARGE: 08/18/2020 DISCHARGE MEDICINE: Famotidine 20 daily, estradiol 2 mg daily, Toprol-XL 100 mg daily, Lipitor 40 mg daily, trazodone 100 q.h.s., Ambien 5 q.h.s., nitroglycerin 0.4 mg sublingual p.r.n., [place] 10/325 q.i.d., aspirin 81 mg daily, cannabinoid topically daily, Xanax 0.25 t.i.d., Plavix 75 mg daily, Zestril 5 mg daily, nicotine patch daily, sotalol 50 mg daily. CONDITION: Stable. PROGNOSIS: Guarded. ACTIVITY: Ambulate as tolerated. HOSPITAL COURSE: This white female came in with atypical chest pain. Dobutamine stress test was done. Negative stress test by EKG criteria. Negative dobutamine echo. The patient was stable, discharged home to follow up as an outpatient. MMODL / IJN: [id number] /
== END 2020-08-18 14:47 | disposition home or self-care (01) ==
LOC: EC 19:02 → 1SOBS 22:30
PROVIDERS: ADMIT Family Medicine; ATTEND Family Medicine
DX: I25.110 Atherosclerotic heart disease of native coronary artery with unstable angina pectoris (principal); I10 Essential (primary) hypertension; Z95.5 Presence of coronary angioplasty implant and graft; J44.9 Chronic obstructive pulmonary disease, unspecified; E78.5 Hyperlipidemia, unspecified; F17.200 Nicotine dependence, unspecified, uncomplicated; F32.9 Major depressive disorder, single episode, unspecified; M79.7 Fibromyalgia; K21.9 Gastro-esophageal reflux disease without esophagitis; Z90.710 Acquired absence of both cervix and uterus; F41.9 Anxiety disorder, unspecified; Z82.49 Family history of ischemic heart disease and other diseases of the circulatory system; Z79.02 Long term (current) use of antithrombotics/antiplatelets; Z79.82 Long term (current) use of aspirin; Z79.890 Hormone replacement therapy; Z79.899 Other long term (current) drug therapy; Z88.6 Allergy status to analgesic agent; Z91.041 Radiographic dye allergy status; Z91.048 Other nonmedicinal substance allergy status
CPT/HCPCS: 96376; 96361; 96365; 96366; 96375; 99291; 36415; 93005; 93306; 93351; 85379; 83880; 80061; 80053; 82550; 83690; 83735; 84484 ×2; 85025; 85610; 85730 ×2; 71046; 74018; 71275; G0378 ×3; S4990 ×2; J1250; J1200; J1644 ×2; J2930; J2405; J0461; J1170; Q9967

== ENCOUNTER 2021-05-08 15:03 | Emergency (ER) | payer MEDICARE ==
[2021-05-08 16:41] LABS: Basophils % (A) 0 %; Eosinophils % (A) 0 %; HCT 44.1 % (34.0-46.0); HGB 14.1 gm/dL (11.4-16.0); Lymphocytes # (A) 0.9 k/uL (1.0-4.8); Lymphocytes % (A) 10 %; MCV 100.1 fL (80.0-100.0); Mean Platelet Volume 7.9; Monocytes # (A) 0.1 k/uL (0-1.0); Monocytes % (A) 1 %; Neutrophils # (A) 8.4 k/uL (1.3-7.7); Neutrophils % (A) 89 %; Platelet Count 416 k/uL (150-450); RBC 4.41 m/uL (3.80-5.40); RDW 13.7 % (11.5-15.5); WBC 9.5 k/uL (3.8-10.6)
[2021-05-08] MEDS ORDERED: LORazepam 2 MG/ML INJ IV STA (16:51)
[2021-05-08 16:52] LABS: ALT 11 U/L (4-34); AST 25 U/L (14-36); African American GFR (CKD) >90 (>60 ml/min/1.73 sqM); Alkaline Phosphatase 79 U/L (38-126); Anion Gap 11 mmol/L; Blood Urea Nitrogen 18 mg/dL (7-17); Calcium 9.7 mg/dL (8.4-10.2); Carbon Dioxide 21 mmol/L (22-30); Chloride 105 mmol/L (98-107); Glucose 147 mg/dL (74-99); Non-African American GFR(CKD) >90 (>60 ml/min/1.73 sqM); Potassium 4.4 mmol/L (3.5-5.1); Sodium 137 mmol/L (137-145); Total Bilirubin 0.1 mg/dL (0.2-1.3)
[2021-05-08] MEDS ORDERED: hydrALAZINE HCL 20 MG/ML 1 ML VIAL IVP STA ×2 (16:52→18:08)
--- NOTE | 2021-05-08 16:55 | ED ---
General Adult HPI - General Chief complaint: Recheck/Abnormal Lab/Rx Stated complaint: High BP,Came from outpt CT Time Seen by Provider: 05/08/21 15:10 Source: patient, RN notes reviewed Mode of arrival: wheelchair Limitations: no limitations - History of Present Illness Initial comments: This is a 66-year-old female who was over a CAT scan getting a CT for chronic headaches. Patient got done with his family noted her blood pressure be elevated so they sent to the emergency department. Patient states she normally has high blood pressure and she takes meds in the morning for and she did take them this morning. Patient states she's asymptomatic currently. Patient denies any chest pain difficulty breathing shortness of breath. Patient states she has chronic headaches and Dr. Orellana started treating her for this. Patient denies any recent fever chills or cough per patient denies any palpitations. Patient denies any abdominal pain. Patient denies any lightheadedness or dizziness. - Related Data Home Medications Medication Instructions Recorded Confirmed Estradiol 2 mg PO DAILY 06/05/16 05/08/21 Aspirin [Adult Low Dose Aspirin EC] 81 mg PO DAILY 05/05/20 05/08/21 Atorvastatin [Lipitor] 40 mg PO HS 05/05/20 05/08/21 Metoprolol Succinate (ER) [Toprol 100 mg PO DAILY 05/05/20 05/08/21 XL] Nitroglycerin Sl Tabs [Nitrostat] 0.4 mg SUBLINGUAL Q5M PRN 05/05/20 05/08/21 Zolpidem [Ambien] 10 mg PO HS 05/05/20 05/08/21 traZODone HCL 100 mg PO HS 05/05/20 05/08/21 Aspirin/Acetaminophen/Caffeine 1 tab PO Q8H PRN 05/08/21 05/08/21 [Excedrin Migraine Caplet] DULoxetine HCL [Cymbalta] 30 mg PO DAILY 05/08/21 05/08/21 oxyCODONE-APAP 7.5-325MG [Percocet 1 tab PO TID PRN 05/08/21 05/08/21 7.5-325 mg] Previous Rx's Medication Instructions Recorded Clopidogrel [Plavix] 75 mg PO DAILY #90 tab 05/11/20 Allergies Allergy/AdvReac Type Severity Reaction Status Date / Time ibuprofen AdvReac NIGHTMARES Verified 08/16/20 20:44 Iodinated Contrast Media AdvReac Nausea & Verified 08/16/20 20:44 [Iodinated Contrast Media - Vomiting IV Dye] povidone-iodine AdvReac Nausea & Verified 08/16/20 20:44 [From Betadine] Vomiting soap [From Betadine] AdvReac Nausea & Verified 08/16/20 20:44 Vomiting Review of Systems ROS Statement: Those systems with pertinent positive or pertinent negative responses have been documented in the HPI. ROS Other: All systems not noted in ROS Statement are negative. Past Medical History Past Medical History: Chest Pain / Angina, COPD, Fibromyalgia, GERD/Reflux, Hyperlipidemia, Hypertension Additional Past Medical History / Comment(s): bulging disc back, scolosis, degenerative bone disease, curvature of skin History of Any Multi-Drug Resistant Organisms: None Reported Past Surgical History: Back Surgery, Breast Surgery, Heart Catheterization With Stent, Hysterectomy, Orthopedic Surgery Additional Past Surgical History / Comment(s): LT BREAST BX stent to Left Cx by Dr Alex on 05/10/20 RCA totally occluded. LT KNEECAP SX. BACK INJECTIONS. SINUS SX. RT CTR Past Anesthesia/Blood Transfusion Reactions: No Reported Reaction Date of Last Stent Placement:: 05/10/20 Past Psychological History: Anxiety, Depression Smoking Status: Current every day smoker Past Alcohol Use History: None Reported Past Drug Use History: None Reported - Past Family History Mother Family Medical History: Cancer General Exam - General Exam Comments Initial Comments: GENERAL: Patient is well-developed and well-nourished. Patient is nontoxic and well- hydrated and is in no acute distress. ENT: Neck is soft and supple. No significant lymphadenopathy is noted. Oropharynx is clear. Moist mucous membranes. Neck has full range of motion without eliciting any pain. EYES: The sclera were anicteric and conjunctiva were pink and moist. Extraocular movements were intact and pupils were equal round and reactive to light. Eyelids were unremarkable. PULMONARY: Unlabored respirations. Good breath sounds bilaterally. No audible rales rhonchi or wheezing was noted. CARDIOVASCULAR: There is a regular rate and rhythm without any murmurs gallops or rubs. ABDOMEN: Soft and nontender with normal bowel sounds. SKIN: Skin is clear with no lesions or rashes and otherwise unremarkable. NEUROLOGIC: Patient is alert and oriented x3. Cranial nerves II through XII are grossly intact. Motor and sensory are also intact. Normal speech, volume and content. Symmetrical smile. MUSCULOSKELETAL: Normal extremities with adequate strength and full range of motion. No lower extremity swelling or edema. No calf tenderness. LYMPHATICS: No significant lymphadenopathy is noted PSYCHIATRIC: Normal psychiatric evaluation. Limitations: no limitations Course Vital Signs 05/08/21 05/08/21 05/08/21 15:09 17:52 18:43 Temperature 97.6 F Pulse Rate 83 77 94 Respiratory 18 16 16 Rate Blood Pressure 172/102 173/83 152/85 O2 Sat by Pulse 98 97 96 Oximetry Medical Decision Making - Medical Decision Making EKG shows normal sinus rhythm at 73 bpm MS interval 228 QRS 88 QT interval 404 QTC is 445. No ST segment elevation or depression I reviewed the CT results with the patient was sent in for there were normal both with without contrast. Patient received a couple doses of hydralazine blood pressure came down nicely and she no longer had any complaints except for the chronic headaches she always has. - Lab Data Result diagrams: 05/08/21 16:35 05/08/21 16:35 Lab Results 05/08/21 05/08/21 05/08/21 Range/Units 15:42 16:35 16:35 WBC 9.5 (3.8-10.6) k/uL RBC 4.41 (3.80-5.40) m/uL Hgb 14.1 (11.4-16.0) gm/dL Hct 44.1 (34.0-46.0) % MCV 100.1 H (80.0-100.0) fL MCH 32.0 (25.0-35.0) pg MCHC 32.0 (31.0-37.0) g/dL RDW 13.7 (11.5-15.5) % Plt Count 416 (150-450) k/uL MPV 7.9 Neutrophils % 89 % Lymphocytes % 10 % Monocytes % 1 % Eosinophils % 0 % Basophils % 0 % Neutrophils # 8.4 H (1.3-7.7) k/uL Lymphocytes # 0.9 L (1.0-4.8) k/uL Monocytes # 0.1 (0-1.0) k/uL Eosinophils # 0.0 (0-0.7) k/uL Basophils # 0.0 (0-0.2) k/uL Sodium 137 (137-145) mmol/L Potassium 4.4 (3.5-5.1) mmol/L Chloride 105 (98-107) mmol/L Carbon Dioxide 21 L (22-30) mmol/L Anion Gap 11 mmol/L BUN 18 H (7-17) mg/dL Creatinine 0.66 (0.52-1.04) mg/dL Est GFR (CKD-EPI)AfAm >90 (>60 ml/min/1.73 sqM) Est GFR (CKD-EPI)NonAf >90 (>60 ml/min/1.73 sqM) Glucose 147 H (74-99) mg/dL Calcium 9.7 (8.4-10.2) mg/dL Total Bilirubin 0.1 L (0.2-1.3) mg/dL AST 25 (14-36) U/L ALT 11 (4-34) U/L Alkaline Phosphatase 79 (38-126) U/L Troponin I <0.012 (0.000-0.034) ng/mL Total Protein 7.0 (6.3-8.2) g/dL Albumin 4.0 (3.5-5.0) g/dL Disposition Clinical Impression: Hypertensive urgency, Chronic headache Disposition: HOME SELF-CARE Condition: Good Instructions (If sedation given, give patient instructions): Hypertension (ED), General Headache (ED) Is patient prescribed a controlled substance at d/c from ED?: No Referrals: Dakota Orellana MD [Primary Care Provider] - 1-2 days Time of Disposition: 19:12
[2021-05-08 17:52] VITALS: RESP 16
[2021-05-08] MEDS ORDERED: HYDROmorphone 0.5 MG/0.5 ML SYRINGE IVP STA (19:13)
[2021-05-08 19:27] VITALS: BP 132/76; PULSE 85; TEMP 98
== END 2021-05-08 19:31 | disposition home or self-care (01) ==
LOC: EC 15:03
DX: I16.0 Hypertensive urgency (principal); G89.29 Other chronic pain; I10 Essential (primary) hypertension; E78.5 Hyperlipidemia, unspecified; F32.9 Major depressive disorder, single episode, unspecified; F41.9 Anxiety disorder, unspecified; I25.10 Atherosclerotic heart disease of native coronary artery without angina pectoris; J44.9 Chronic obstructive pulmonary disease, unspecified; K21.9 Gastro-esophageal reflux disease without esophagitis; M79.7 Fibromyalgia; F17.200 Nicotine dependence, unspecified, uncomplicated; Z79.02 Long term (current) use of antithrombotics/antiplatelets; Z79.82 Long term (current) use of aspirin; Z79.899 Other long term (current) drug therapy; Z88.6 Allergy status to analgesic agent; Z88.8 Allergy status to other drugs, medicaments and biological substances
CPT/HCPCS: 36415; 93005; 80053; 84484; 85025; 96374; 96375 ×2; 96376; 99283; J2060; J0360; J1170

== ENCOUNTER → 2021-05-08 | Outpatient (CLI) | payer MEDICARE ==
[2021-05-08 15:10] VITALS: BP 195/117; PULSE 77; RESP 20; TEMP 97.7
[2021-05-08 16:02] LABS: African American GFR (CKD) >90 (>60 ml/min/1.73 sqM); Blood Urea Nitrogen 18 mg/dL (7-17); Non-African American GFR(CKD) >90 (>60 ml/min/1.73 sqM)
--- NOTE | 2021-05-08 18:09 | CT ---
EXAMINATION TYPE: CT brain w con DATE OF EXAM: 05/08/2021 COMPARISON: None INDICATION: Headache syndrome DLP: 1060.70 mGycm, Automated exposure control for dose reduction was used. CONTRAST: None CT of the brain is performed utilizing 3 mm thick sections through the posterior fossa and 3 mm thick sections through the remaining calvarium. Study is performed within 24 hours of arrival to the hosp [facility]. No abnormal hyperdensity is present to suggest an acute intracranial hemorrhage. No mass lesion is evident. No acute infarcts are evident. Ventricles and sulci are prominent for the patient age. No suspicious enhancement is evident. Paranasal sinuses and mastoid air cells within the [id number] are clear. IMPRESSIONS: 1. Normal pre and postcontrast CT brain 2. Patient complained of nausea and headache. Patient had elevated blood pressure and was transferred to ER.
== END | disposition home or self-care (01) ==
LOC: RADCTMAIN 13:17
PROVIDERS: ATTEND Family Medicine
DX: R51.9 Headache, unspecified (principal); R11.0 Nausea
CPT/HCPCS: 82565; 84520; 70460; 36415; Q9967

== ENCOUNTER 2021-05-25 22:28 | Inpatient (IN) | payer MEDICARE ==
[2021-05-25] MEDS ORDERED: NALOXONE 0.4 MG/ML 1 ML VIAL IVP STA (22:45)
[2021-05-25] MEDS ORDERED: SODIUM CHLORIDE 0.9% 500 ML 500 ML IV ONE (22:48)
[2021-05-25 23:16] LABS: Basophils # (A) 0.1 k/uL (0-0.2); Basophils % (A) 1 %; Eosinophils # (A) 0.1 k/uL (0-0.7); Eosinophils % (A) 2 %; HCT 35.1 % (34.0-46.0); HGB 11.4 gm/dL (11.4-16.0); Lymphocytes # (A) 4.3 k/uL (1.0-4.8); Lymphocytes % (A) 44 %; MCH 32.1 pg (25.0-35.0); MCHC 32.6 g/dL (31.0-37.0); MCV 98.4 fL (80.0-100.0); Mean Platelet Volume 7.2; Monocytes # (A) 0.4 k/uL (0-1.0); Monocytes % (A) 5 %; Neutrophils # (A) 4.5 k/uL (1.3-7.7); Neutrophils % (A) 47 %; Platelet Count 253 k/uL (150-450); RBC 3.56 m/uL (3.80-5.40); RDW 13.7 % (11.5-15.5); WBC 9.6 k/uL (3.8-10.6)
[2021-05-25 23:39] LABS: ALT 7 U/L (4-34); AST 21 U/L (14-36); African American GFR (CKD) 61 (>60 ml/min/1.73 sqM); Albumin 3.5 g/dL (3.5-5.0); Alkaline Phosphatase 60 U/L (38-126); Blood Urea Nitrogen 24 mg/dL (7-17); Calcium 9.2 mg/dL (8.4-10.2); Carbon Dioxide 26 mmol/L (22-30); Chloride 95 mmol/L (98-107); Glucose 102 mg/dL (74-99); INR 0.9 (<1.2); Non-African American GFR(CKD) 53 (>60 ml/min/1.73 sqM); Partial Thromboplastin Time 23.5 sec (22.0-30.0); Prothrombin Time 10.1 sec (9.0-12.0); Total Bilirubin <0.1 mg/dL (0.2-1.3)
[2021-05-25 23:47] LABS: Amorphous Sediment,Urine Rare /hpf; Appearance,Urine Clear (Clear); Bacteria,Urine Many /hpf; Bilirubin,Urine Negative (Negative); Blood,Urine Negative (Negative); Color,Urine Yellow; Glucose,Urine (UA) Negative (Negative); Hyaline Casts,Urine 148 /lpf (0-2); Ketones,Urine Negative (Negative); Leukocyte Esterase,Urine Trace (Negative); Mucus,Urine Rare /hpf; Nitrite,Urine Positive (Negative); PH, Urine 5.5 (5.0-8.0); Protein,Urine Trace (Negative); RBC,Urine 1 /hpf (0-5); Specific Gravity,Urine 1.027 (1.001-1.035); Squamous Epithelial Cell,Urine 4 /hpf (0-4); Urobilinogen,Urine <2.0 mg/dL (<2.0); WBC,Urine 12 /hpf (0-5)
[2021-05-25] MEDS ORDERED: cefTRIAXone IN SWFI 1,000 MG/10 ML SYRINGE IVP STA (23:48)
[2021-05-25 23:52] LABS: Amphetamine Screen,Urine Not Detected (NotDetected); Barbiturate Screen,Urine Not Detected (NotDetected); Benzodiazepines Screen,Urine Not Detected (NotDetected); Cocaine Screen,Urine Not Detected (NotDetected); Methadone Screen, Urine Not Detected (NotDetected); Opiate Screen,Urine Detected (NotDetected); Oxycodone Screen, Urine Detected (NotDetected); Phencyclidine Screen,Urine Not Detected (NotDetected); Tricyclic Antidepressant,Urine Not Detected (NotDetected); Urn Cannabinoid Scrn Not Detected (NotDetected)
[2021-05-25 23:55] LABS: Anion Gap 8 mmol/L; Potassium 4.3 mmol/L (3.5-5.1); Sodium 129 mmol/L (137-145)
--- NOTE | 2021-05-26 00:13 | ED ---
General Adult HPI - General Chief complaint: Recheck/Abnormal Lab/Rx Stated complaint: Choking Time Seen by Provider: 05/25/21 22:40 Source: EMS Mode of arrival: EMS Limitations: no limitations - History of Present Illness Initial comments: 66 year-old female patient presents after having a choking episode at home. Daughter reported that she was taking her evening pain medication when she choked on the pill and water. States that she was concerned and wanted to have her evaluated so brought her here. Upon arrival patient is very drowsy, has decreased respirations, and low O2 saturation. Patient states she did take her percocet at home. States she takes it for back and leg pain. States she did have a fall yesterday without injuries. Denies hitting her head or losing consciousness. Patient denies any recent rash, fever, chills, cough, shortness of breath, chest pain, abdominal pain, nausea, vomiting, diarrhea, constipation, back pain, numbness, tingling, dizziness, weakness, hematuria, dysuria, urinary urgency, urinary frequency, headache, visual changes, or any other complaints. - Related Data Home Medications Medication Instructions Recorded Confirmed Estradiol 2 mg PO DAILY 06/05/16 05/25/21 Aspirin [Adult Low Dose Aspirin EC] 81 mg PO DAILY 05/05/20 05/25/21 Atorvastatin [Lipitor] 40 mg PO HS 05/05/20 05/25/21 Metoprolol Succinate (ER) [Toprol 100 mg PO DAILY 05/05/20 05/25/21 XL] Nitroglycerin Sl Tabs [Nitrostat] 0.4 mg SUBLINGUAL Q5M PRN 05/05/20 05/25/21 Zolpidem [Ambien] 10 mg PO HS 05/05/20 05/25/21 traZODone HCL 100 mg PO HS 05/05/20 05/25/21 Aspirin/Acetaminophen/Caffeine 1 tab PO Q8H PRN 05/08/21 05/25/21 [Excedrin Migraine Caplet] DULoxetine HCL [Cymbalta] 30 mg PO DAILY 05/08/21 05/25/21 oxyCODONE-APAP 7.5-325MG [Percocet 1 tab PO TID PRN 05/08/21 05/25/21 7.5-325 mg] ARIPiprazole [Abilify] 2 mg PO DAILY 05/25/21 05/25/21 amLODIPine [Norvasc] 5 mg PO DAILY 05/25/21 05/25/21 rOPINIRole HCL [Requip] 1 mg PO HS 05/25/21 05/25/21 Previous Rx's Medication Instructions Recorded Levofloxacin [Levaquin] 750 mg PO DAILY 5 Days #1 tab 05/26/21 Allergies Allergy/AdvReac Type Severity Reaction Status Date / Time ibuprofen AdvReac NIGHTMARES Verified 08/16/20 20:44 Iodinated Contrast Media AdvReac Nausea & Verified 08/16/20 20:44 [Iodinated Contrast Media - Vomiting IV Dye] povidone-iodine AdvReac Nausea & Verified 08/16/20 20:44 [From Betadine] Vomiting soap [From Betadine] AdvReac Nausea & Verified 08/16/20 20:44 Vomiting Review of Systems ROS Statement: Those systems with pertinent positive or pertinent negative responses have been documented in the HPI. ROS Other: All systems not noted in ROS Statement are negative. Past Medical History Past Medical History: Chest Pain / Angina, COPD, Fibromyalgia, GERD/Reflux, Hyperlipidemia, Hypertension Additional Past Medical History / Comment(s): bulging disc back, scolosis, degenerative bone disease, curvature of skin History of Any Multi-Drug Resistant Organisms: None Reported Past Surgical History: Back Surgery, Breast Surgery, Heart Catheterization With Stent, Hysterectomy, Orthopedic Surgery Additional Past Surgical History / Comment(s): LT BREAST BX stent to Left Cx by Dr Alex on 05/10/20 RCA totally occluded. LT KNEECAP SX. BACK INJECTIONS. SINUS SX. RT CTR Past Anesthesia/Blood Transfusion Reactions: No Reported Reaction Date of Last Stent Placement:: 05/10/20 Past Psychological History: Anxiety, Depression Smoking Status: Current every day smoker Past Alcohol Use History: None Reported Past Drug Use History: None Reported - Past Family History Mother Family Medical History: Cancer General Exam Limitations: no limitations General appearance: lethargic, other (This is a well-developed, thin appearing adult female who is quite drowsy upon initial exam. Vital signs upon presentation are temperature 97.7F, pulse 56, respirations 8, blood pressure 92/60, pulse ox 90% on room air.) Eye exam: Present: normal appearance, PERRL, EOMI, other (Pinpoint pupils). Absent: scleral icterus, conjunctival injection, periorbital swelling ENT exam: Present: normal exam, normal oropharynx, mucous membranes moist Respiratory exam: Present: normal lung sounds bilaterally. Absent: respiratory distress, wheezes, rales, rhonchi, stridor Cardiovascular Exam: Present: regular rate, normal rhythm, normal heart sounds. Absent: systolic murmur, diastolic murmur, rubs, gallop, clicks GI/Abdominal exam: Present: soft, normal bowel sounds. Absent: distended, tenderness, guarding, rebound, rigid Neurological exam: Present: CN II-XII intact. Absent: alert (Drowsy), oriented X3 (Oriented 2) Skin exam: Present: warm, dry, intact, normal color. Absent: rash Course Vital Signs 05/25/21 05/25/21 05/25/21 22:39 23:07 23:24 Temperature 97.7 F Pulse Rate 56 L 68 Respiratory 8 L 8 L 14 Rate Blood Pressure 92/60 137/64 O2 Sat by Pulse 90 L 98 Oximetry 05/26/21 05/26/21 05/26/21 00:52 01:33 01:40 Temperature Pulse Rate 64 54 L Respiratory Rate Blood Pressure O2 Sat by Pulse 90 L Oximetry 05/26/21 02:22 Temperature Pulse Rate 67 Respiratory 18 Rate Blood Pressure 142/87 O2 Sat by Pulse 94 L Oximetry - Reevaluation(s) Reevaluation #1: 05/25/21 2315 Also given a dose of Narcan. After administration of the medication patient is alert, respirations improved, oxygen saturation 98%. She admits to taking Percocet states she generally takes every 4 hours it has been known to take it every 3 hours. Denies use of other medications. Denies any alcohol use today. EKG Findings - EKG Comments: EKG Findings:: EKG obtained at 2304 shows sinus bradycardia with a ventricular rate of 58, IN interval 134, QRS duration 80, QT 418, QTC 410. No evidence of ST elevation or depression. Medical Decision Making - Medical Decision Making 66-year-old female patient presents to the emergency department today for evaluation after choking on a pill. Upon arrival patient was lethargic though arousable with loud verbal stimulation. Respirations and oxygen saturation were decreased. She does take Percocet at home and did admit to taking pills every 3 hours. She was given 0.4 mg of Narcan through the IV. This did improve respirations and mentation. Labs reviewed and did reveal evidence for urinary tract infection. Chest x-ray was obtained and showed evidence for left lower lobe pneumonia. Patient's oxygen saturation remained borderline. Plan was to discharge home with levaquin to cover both UTI and pneumonia however patient was too drowsy to discharge safely so she will be admitted for observation. Case discussed with my attending Dr. Reyes. - Lab Data Result diagrams: 05/25/21 23:03 05/25/21 23:03 Lab Results 05/25/21 05/25/21 05/25/21 Range/Units 23:03 23:03 23:03 WBC 9.6 (3.8-10.6) k/uL RBC 3.56 L (3.80-5.40) m/uL Hgb 11.4 (11.4-16.0) gm/dL Hct 35.1 (34.0-46.0) % MCV 98.4 (80.0-100.0) fL MCH 32.1 (25.0-35.0) pg MCHC 32.6 (31.0-37.0) g/dL RDW 13.7 (11.5-15.5) % Plt Count 253 (150-450) k/uL MPV 7.2 Neutrophils % 47 % Lymphocytes % 44 % Monocytes % 5 % Eosinophils % 2 % Basophils % 1 % Neutrophils # 4.5 (1.3-7.7) k/uL Lymphocytes # 4.3 (1.0-4.8) k/uL Monocytes # 0.4 (0-1.0) k/uL Eosinophils # 0.1 (0-0.7) k/uL Basophils # 0.1 (0-0.2) k/uL PT 10.1 (9.0-12.0) sec INR 0.9 (<1.2) APTT 23.5 (22.0-30.0) sec Sodium 129 L (137-145) mmol/L Potassium 4.3 (3.5-5.1) mmol/L Chloride 95 L (98-107) mmol/L Carbon Dioxide 26 (22-30) mmol/L Anion Gap 8 mmol/L BUN 24 H (7-17) mg/dL Creatinine 1.09 H (0.52-1.04) mg/dL Est GFR (CKD-EPI)AfAm 61 (>60 ml/min/1.73 sqM) Est GFR (CKD-EPI)NonAf 53 (>60 ml/min/1.73 sqM) Glucose 102 H (74-99) mg/dL Calcium 9.2 (8.4-10.2) mg/dL Total Bilirubin <0.1 L (0.2-1.3) mg/dL AST 21 (14-36) U/L ALT 7 (4-34) U/L Alkaline Phosphatase 60 (38-126) U/L Troponin I (0.000-0.034) ng/mL Total Protein 6.0 L (6.3-8.2) g/dL Albumin 3.5 (3.5-5.0) g/dL Urine Color Urine Appearance (Clear) Urine pH (5.0-8.0) Ur Specific [place] (1.001-1.035) Urine Protein (Negative) Urine Glucose (UA) (Negative) Urine Ketones (Negative) Urine Blood (Negative) Urine Nitrite (Negative) Urine Bilirubin (Negative) Urine Urobilinogen (<2.0) mg/dL Ur Leukocyte Esterase (Negative) Urine RBC (0-5) /hpf Urine WBC (0-5) /hpf Ur Squamous Epith Cells (0-4) /hpf Amorphous Sediment (None) /hpf Urine Bacteria (None) /hpf Hyaline Casts (0-2) /lpf Urine Mucus (None) /hpf Urine Opiates Screen (NotDetected) Ur Oxycodone Screen (NotDetected) Urine Methadone Screen (NotDetected) Ur Propoxyphene Screen (NotDetected) Ur Barbiturates Screen (NotDetected) U Tricyclic Antidepress (NotDetected) Ur Phencyclidine Scrn (NotDetected) Ur Amphetamines Screen (NotDetected) U Methamphetamines Scrn (NotDetected) U Benzodiazepines Scrn (NotDetected) Urine Cocaine Screen (NotDetected) U Marijuana (THC) Screen (NotDetected) 05/25/21 05/25/21 Range/Units 23:03 23:15 WBC (3.8-10.6) k/uL RBC (3.80-5.40) m/uL Hgb (11.4-16.0) gm/dL Hct (34.0-46.0) % MCV (80.0-100.0) fL MCH (25.0-35.0) pg MCHC (31.0-37.0) g/dL RDW (11.5-15.5) % Plt Count (150-450) k/uL MPV Neutrophils % % Lymphocytes % % Monocytes % % Eosinophils % % Basophils % % Neutrophils # (1.3-7.7) k/uL Lymphocytes # (1.0-4.8) k/uL Monocytes # (0-1.0) k/uL Eosinophils # (0-0.7) k/uL Basophils # (0-0.2) k/uL PT (9.0-12.0) sec INR (<1.2) APTT (22.0-30.0) sec Sodium (137-145) mmol/L Potassium (3.5-5.1) mmol/L Chloride (98-107) mmol/L Carbon Dioxide (22-30) mmol/L Anion Gap mmol/L BUN (7-17) mg/dL Creatinine (0.52-1.04) mg/dL Est GFR (CKD-EPI)AfAm (>60 ml/min/1.73 sqM) Est GFR (CKD-EPI)NonAf (>60 ml/min/1.73 sqM) Glucose (74-99) mg/dL Calcium (8.4-10.2) mg/dL Total Bilirubin (0.2-1.3) mg/dL AST (14-36) U/L ALT (4-34) U/L Alkaline Phosphatase (38-126) U/L Troponin I <0.012 (0.000-0.034) ng/mL Total Protein (6.3-8.2) g/dL Albumin (3.5-5.0) g/dL Urine Color Yellow Urine Appearance Clear (Clear) Urine pH 5.5 (5.0-8.0) Ur Specific [place] 1.027 (1.001-1.035) Urine Protein Trace H (Negative) Urine Glucose (UA) Negative (Negative) Urine Ketones Negative (Negative) Urine Blood Negative (Negative) Urine Nitrite Positive H (Negative) Urine Bilirubin Negative (Negative) Urine Urobilinogen <2.0 (<2.0) mg/dL Ur Leukocyte Esterase Trace H (Negative) Urine RBC 1 (0-5) /hpf Urine WBC 12 H (0-5) /hpf Ur Squamous Epith Cells 4 (0-4) /hpf Amorphous Sediment Rare H (None) /hpf Urine Bacteria Many H (None) /hpf Hyaline Casts 148 H (0-2) /lpf Urine Mucus Rare H (None) /hpf Urine Opiates Screen Detected H (NotDetected) Ur Oxycodone Screen Detected H (NotDetected) Urine Methadone Screen Not Detected (NotDetected) Ur Propoxyphene Screen Not Detected (NotDetected) Ur Barbiturates Screen Not Detected (NotDetected) U Tricyclic Antidepress Not Detected (NotDetected) Ur Phencyclidine Scrn Not Detected (NotDetected) Ur Amphetamines Screen Not Detected (NotDetected) U Methamphetamines Scrn Detected H (NotDetected) U Benzodiazepines Scrn Not Detected (NotDetected) Urine Cocaine Screen Not Detected (NotDetected) U Marijuana (THC) Screen Not Detected (NotDetected) - Radiology Data Radiology results: report reviewed, image reviewed Two-view x-ray of the chest is obtained. Report was reviewed in its entirety. Impression by Dr. Sloan shows no infiltrate and atelectasis left lung base with pleural reaction compared to old exam. No heart failure. Normal heart. Disposition Clinical Impression: UTI (urinary tract infection), Left lower lobe pneumonia, Opiate misuse Disposition: ADMITTED IP TO THIS HOSP Condition: Serious Prescriptions: Levofloxacin [Levaquin] 750 mg PO DAILY 5 Days #1 tab Is patient prescribed a controlled substance at d/c from ED?: No Referrals: Dakota Orellana MD [Primary Care Provider] - 1-2 days Decision to Admit Reason: Admit from EC Decision Date: 05/26/21 Decision Time: 02:24
[2021-05-26] MEDS ORDERED: IPRATROPIUM-ALBUTEROL 3 ML NEB INHALATION STA (00:50)
--- NOTE | 2021-05-26 01:09 | XR ---
EXAMINATION TYPE: XR chest 2V DATE OF EXAM: 05/26/2021 COMPARISON: 08/16/2020 HISTORY: Hypoxemia TECHNIQUE: 2 views FINDINGS: There is some blunting of the left costophrenic angle. Heart size is normal. There are no h ilar masses. There are chest leads. There is interstitial infiltrate and atelectasis left lung base. The bony thorax appears intact. IMPRESSION: There is some new infiltrate and atelectasis left lung base with pleural reaction compare d to old exam. No heart failure. Normal heart.
[2021-05-26] MEDS ORDERED: LEVOFLOXACIN 750 MG TAB PO STA (02:00)
[2021-05-26] MEDS ORDERED: NALOXONE 0.4 MG/ML 1 ML VIAL IV PRN (02:24)
[2021-05-26] MEDS: AZITHROMYCIN 500 MG in SODIUM CHLORIDE 0.9% 250 ML IVPB SCH (08:56)
[2021-05-26] MEDS ORDERED: ASPIRIN-ACET-CAFF 250-250-65MG 1 EACH TAB PO PRN (10:22)
[2021-05-26] MEDS ORDERED: NITROGLYCERIN SL TABS 0.4 MG TAB SUBLINGUAL PRN (10:22)
[2021-05-26] MEDS: HYDROcodone/APAP 5-325MG 1 EACH TAB PO PRN ×2 (11:35→19:07)
[2021-05-26] MEDS: amLODIPine 5 MG TAB PO SCH (11:35)
[2021-05-26] MEDS: ASPIRIN 81 MG PO SCH (11:35)
[2021-05-26] MEDS: ARIPiprazole 2 MG TAB PO SCH (11:38)
[2021-05-26] MEDS: DULoxetine HCL 30 MG CAPSULE.DR PO SCH ×2 (11:38→11:39)
[2021-05-26] MEDS: METOPROLOL SUCCINATE (ER) 100 MG TAB.ER.24H PO SCH (11:40)
--- NOTE | 2021-05-26 12:09 | HP ---
HISTORY AND PHYSICAL A 66-year-old who had a choking episode at home. She is taking pain medicine. She choked on a pill and water. She is concerned over choking. She came to the emergency room where she was not breathing. She had low oxygen saturation. She smokes. She has bad COPD. Apparently the patient states she did take her Percocet at home for her back and leg pain. She had a fall yesterday without injuries. Denies any fever, chills, urinary symptoms, visual changes, or any other complaints. MEDICATIONS: Home medicines estradiol 2 mg daily, aspirin 81 daily, Lipitor 40 daily, metoprolol 100 mg daily, Nitrostat sublingual p.r.n., Ambien 10 mg p.r.n., trazodone 100 at bedtime, Cymbalta 30 daily, Percocet 7.5 t.i.d., Abilify 2 mg daily, Norvasc 5 mg daily, Requip 1 mg daily. ALLERGIES: Ibuprofen, Betadine, iodine. REVIEW OF SYSTEMS: Fourteen-point review of systems negative except for mentioned above. PAST MEDICAL HISTORY: Degenerative disc disease, scoliosis, nicotine addiction, COPD, set back surgery, breast surgery, heart catheterization with stent, hysterectomy, orthopedic surgery, history of anxiety depression, current everyday smoker. No alcohol. No drugs. FAMILY HISTORY: Mother with cancer. PHYSICAL EXAMINATION: Vital signs stable. Afebrile. Temperature 97.7, pulse 96, respiratory rate 18, blood pressure 92/60, O2 90% on room air. HEENT: External ear canals normal. RESPIRATORY: Normal breath sounds bilaterally. HEART: S1, S2. ABDOMEN: Soft, nontender. NEUROLOGIC: Cranial nerves are intact. PSYCH: Fair mood and affect. INTEGUMENT: No rashes. Blood pressure is 90s to 130s over 60s, O2 90 to 98 on room air. She was 90 on admission. They gave her some Narcan in the emergency room and she became more alert and oxygen improved. EKG shows sinus bradycardia. ASSESSMENT: 1. Choking episode. 2. Prerenal azotemia. 3. Hyponatremia secondary to dehydration and urinary tract infection. 4. Possible aspiration pneumonia. 5. Possible malnutrition and poor oral intake. 6. UTI. 7. Left lower lobe pneumonia. 8. Opiate misuse. 9. Choking episode. 10.Dehydration. 11.Prerenal renal azotemia. PLAN: Levaquin 750 daily cut down medications stop Ambien. Cut down her pain medicines to low-dose [place] and get her off Percocet. We will discuss with her abnormal drug screen. Prognosis is guarded. MMSJL / IJN: [id number] /
[2021-05-26] MEDS: SODIUM CHLORIDE 0.9% 1,000 ML IV SCH (18:42)
[2021-05-26] MEDS: traZODone HCL 100 MG TAB PO SCH (20:08)
[2021-05-26] MEDS: ATORVASTATIN 40 MG TAB PO SCH (20:08)
[2021-05-26] MEDS ORDERED: ZOLPIDEM 10 MG TAB PO SCH (21:00)
[2021-05-27] MEDS: SODIUM CHLORIDE 0.9% 1,000 ML IV SCH (03:09)
[2021-05-27] MEDS: HYDROcodone/APAP 5-325MG 1 EACH TAB PO PRN ×3 (07:11→19:46)
[2021-05-27] MEDS: ASPIRIN 81 MG PO SCH (07:11)
[2021-05-27] MEDS: amLODIPine 5 MG TAB PO SCH (07:11)
[2021-05-27] MEDS: ARIPiprazole 2 MG TAB PO SCH (07:12)
[2021-05-27] MEDS: METOPROLOL SUCCINATE (ER) 100 MG TAB.ER.24H PO SCH (07:13)
[2021-05-27] MEDS: AZITHROMYCIN 500 MG in SODIUM CHLORIDE 0.9% 250 ML IVPB SCH (07:16)
[2021-05-27 11:47] LABS: Glucose,Whole Blood 126 mg/dL (75-99)
[2021-05-27 12:43] LABS: Basophils # (A) 0.05 X 10*3/uL (0.00-0.10); Basophils % (A) 0.7 %; Eosinophils # (A) 0.09 X 10*3/uL (0.04-0.35); Eosinophils % (A) 1.2 %; HCT 36.2 % (37.2-46.3); HGB 11.5 g/dL (12.0-15.0); Lymphocytes # (A) 3.29 X 10*3/uL (0.90-5.00); Lymphocytes % (A) 43.7 %; MCH 31.6 pg (27.0-32.0); MCHC 31.8 g/dL (32.0-37.0); MCV 99.5 fL (80.0-97.0); Mean Platelet Volume 10.6 fL (9.5-12.2); Monocytes # (A) 0.47 X 10*3/uL (0.20-1.00); Monocytes % (A) 6.2 %; Neutrophils # (A) 3.62 X 10*3/uL (1.80-7.70); Neutrophils % (A) 48.1 %; Platelet Count 249 X 10*3/uL (140-440); RBC 3.64 X 10*6/uL (4.10-5.20); RDW 14.3 % (11.5-14.5); WBC 7.53 X 10*3/uL (4.50-10.00)
[2021-05-27 13:51] LABS: ALT <8 U/L (8-44); AST 23 U/L (13-35); African American GFR (CKD) 104.6 (60.0-200.0); Albumin/Globulin Ratio 1.62 (1.60-3.17); Alkaline Phosphatase 62 U/L (41-126); BUN/Creat Ratio 17.14 Ratio (12.00-20.00); Calcium 8.4 mg/dL (8.7-10.3); Chloride 113 mmol/L (96-109); Globulin 2.1 g/dL (1.6-3.3); Glucose 87 mg/dL (70-110); Non-African American GFR(CKD) 90.3 (60.0-200.0); Potassium 4.3 mmol/L (3.5-5.5); Sodium 143 mmol/L (135-145); Total Bilirubin 0.2 mg/dL (0.2-1.2); Total Protein 5.5 g/dL (6.2-8.2)
[2021-05-27] MEDS: traZODone HCL 100 MG TAB PO SCH (19:47)
[2021-05-27] MEDS: ATORVASTATIN 40 MG TAB PO SCH (19:47)
[2021-05-28] MEDS: HYDROcodone/APAP 5-325MG 1 EACH TAB PO PRN ×3 (06:19→16:44)
[2021-05-28] MEDS: SODIUM CHLORIDE 0.9% 1,000 ML IV SCH ×3 (06:24→17:34)
[2021-05-28 07:52] VITALS: RESP 18
[2021-05-28] MEDS: ASPIRIN 81 MG PO SCH (08:37)
[2021-05-28] MEDS: AZITHROMYCIN 500 MG in SODIUM CHLORIDE 0.9% 250 ML IVPB SCH (08:37)
[2021-05-28] MEDS: ARIPiprazole 2 MG TAB PO SCH (08:37)
[2021-05-28] MEDS: METOPROLOL SUCCINATE (ER) 100 MG TAB.ER.24H PO SCH (08:37)
[2021-05-28] MEDS: DULoxetine HCL 30 MG CAPSULE.DR PO SCH (08:37)
[2021-05-28] MEDS: amLODIPine 5 MG TAB PO SCH (08:37)
[2021-05-28 11:18] LABS: Basophils # (A) 0.04 X 10*3/uL (0.00-0.10); Basophils % (A) 0.6 %; Eosinophils # (A) 0.14 X 10*3/uL (0.04-0.35); HCT 35.8 % (37.2-46.3); HGB 11.5 g/dL (12.0-15.0); Lymphocytes # (A) 2.72 X 10*3/uL (0.90-5.00); Lymphocytes % (A) 38.9 %; MCH 31.5 pg (27.0-32.0); MCHC 32.1 g/dL (32.0-37.0); MCV 98.1 fL (80.0-97.0); Mean Platelet Volume 10.9 fL (9.5-12.2); Monocytes # (A) 0.57 X 10*3/uL (0.20-1.00); Monocytes % (A) 8.1 %; Neutrophils # (A) 3.51 X 10*3/uL (1.80-7.70); Neutrophils % (A) 50.1 %; Platelet Count 244 X 10*3/uL (140-440); RBC 3.65 X 10*6/uL (4.10-5.20); RDW 14.2 % (11.5-14.5)
[2021-05-28 13:47] LABS: ALT <8 U/L (8-44); AST 23 U/L (13-35); African American GFR (CKD) 104.6 (60.0-200.0); Albumin/Globulin Ratio 1.95 (1.60-3.17); Alkaline Phosphatase 65 U/L (41-126); BUN/Creat Ratio 15.71 Ratio (12.00-20.00); Calcium 8.9 mg/dL (8.7-10.3); Carbon Dioxide 26.1 mmol/L (21.6-31.8); Chloride 112 mmol/L (96-109); Glucose 112 mg/dL (70-110); Non-African American GFR(CKD) 90.3 (60.0-200.0); Sodium 144 mmol/L (135-145); Total Bilirubin 0.2 mg/dL (0.3-1.2); Total Protein 5.9 g/dL (6.2-8.2)
[2021-05-28 14:45] VITALS: BP 150/78; PULSE 69; TEMP 98.2
--- NOTE | 2021-05-28 19:03 | PN ---
PROGRESS NOTE DATE OF SERVICE: 05/27/2021 66-year-old white female who denies overdose on Percocet. We changed her medicine to low-dose [place]. We do offer Ambien at night for sleeping. Possibly she will be able to go home in the next 24 to 48 hours. No signs of any shortness of breath. Her dehydration is improved with decrease in creatinine from 1.09 to .7. Cardiovascular: S1/S2. Lungs clear. GI soft. Hematology: Negative [place]. Psych: Fair mood and affect. Has gram-negative bacilli in the urine culture which we had been treating with IV Rocephin. Possibly she will be able to go home on oral antibiotics tomorrow. ASSESSMENT: 1. Urinary tract infection. 2. Altered mental status. 3. Prognosis extremely guarded. 4. Prerenal renal insufficiency. 5. Dehydration. Possible discharge home tomorrow. MMODL / IJN: [id number] /
--- NOTE | 2021-07-24 10:58 | DS ---
DISCHARGE SUMMARY DATE OF ADMISSION: 05/26/2021 DATE OF DISCHARGE: 05/28/2021. DISCHARGE MEDICATIONS: 1. Estradiol 2 mg daily. 2. Toprol-XL 100 mg daily. 3. Lipitor 40 mg daily. 4. Trazodone 100 at bedtime. 5. Ambien 10 at bedtime. 6. Nitroglycerin sublingually p.r.n. 7. Aspirin 81 mg daily. 8. Excedrin Migraine mg p.r.n. 9. Cymbalta 30 mg daily. 10.Percocet 7.5 t.i.d. 11.Abilify 2 mg daily. 12.Norvasc 5 mg daily. 13.Requip 1 mg daily. 14.Levaquin 750 daily for 5 days. 15.[place] 5/325 every 6 hours p.r.n. DISCHARGE DIAGNOSIS: 1. Left lower lobe pneumonia. 2. Chest pain. 3. Opiate misuse. 4. Unstable angina pectoris. CONDITION: Stable. PROGNOSIS: Guarded. Ambulate as tolerated. HOSPITAL COURSE OF EVENTS: The patient was admitted with atypical chest pain, left lower lobe pneumonia, COPD exacerbation, atypical chest pain. The patient was treated with IV antibiotics, switched to oral antibiotics. IV steroids were given. Home medicines were switched to oral antibiotics and oral steroids. Follow up in next 24 to 48 hours. Follow up as an outpatient. Smoking cessation. Alcohol withdrawal. Alcohol cessation was discussed with her. Prognosis guarded. Condition stable. Prognosis guarded. MMODL / IJN: [id number] /
== END 2021-05-28 18:44 | disposition home or self-care (01) | DRG 178 ==
LOC: EC 22:28 → 4SSUR 05-26 02:40
PROVIDERS: ADMIT Family Medicine; ATTEND Family Medicine
DX: J69.0 Pneumonitis due to inhalation of food and vomit (principal); E87.1 Hypo-osmolality and hyponatremia; N39.0 Urinary tract infection, site not specified; J44.0 Chronic obstructive pulmonary disease with (acute) lower respiratory infection; F17.210 Nicotine dependence, cigarettes, uncomplicated; I10 Essential (primary) hypertension; E86.0 Dehydration; E78.5 Hyperlipidemia, unspecified; M79.7 Fibromyalgia; M41.9 Scoliosis, unspecified; I25.10 Atherosclerotic heart disease of native coronary artery without angina pectoris; W19.XXXA Unspecified fall, initial encounter; Z79.82 Long term (current) use of aspirin; Z79.890 Hormone replacement therapy; Z90.710 Acquired absence of both cervix and uterus; Z88.6 Allergy status to analgesic agent; Z91.041 Radiographic dye allergy status
CPT/HCPCS: 36415; 71046; 80053; 80306; 81001; 84484; 85025; 85610; 85730; 87077; 87086; 87186; 93005; 94640; 94760; 96361; 96374; 96375; 99285

== ENCOUNTER 2022-04-10 08:04 | Inpatient (IN) | payer MEDICARE ==
--- NOTE | 2022-04-10 08:30 | ED ---
General Adult HPI - General Chief complaint: Fall Stated complaint: Fall Time Seen by Provider: 04/10/22 08:04 Source: patient, EMS, RN notes reviewed Mode of arrival: EMS Limitations: no limitations - History of Present Illness Initial comments: This is a pleasant 67-year-old female presenting to the emergency department following a fall. Fall occurred this morning. Patient was using the restroom. Patient did lightly strike her face. Unclear patient is on anticoagulants. Patient is a poor historian. Patient does complain of back discomfort however admits back discomfort is chronic and unchanged. No isolated area of weakness. Patient does not feel confused. Patient does mumble significantly and is difficult to understand. - Related Data Home Medications Medication Instructions Recorded Confirmed estradioL [Estradiol] 2 mg PO DAILY 06/05/16 05/25/21 Aspirin [Adult Low Dose Aspirin EC] 81 mg PO DAILY 05/05/20 05/25/21 Atorvastatin [Lipitor] 40 mg PO HS 05/05/20 05/25/21 Metoprolol Succinate (ER) [Toprol 100 mg PO DAILY 05/05/20 05/25/21 XL] Nitroglycerin Sl Tabs [Nitrostat] 0.4 mg SUBLINGUAL Q5M PRN 05/05/20 05/25/21 traZODone HCL 100 mg PO HS 05/05/20 05/25/21 Aspirin/Acetaminophen/Caffeine 1 tab PO Q8H PRN 05/08/21 05/25/21 [Excedrin Migraine Caplet] DULoxetine HCL [Cymbalta] 30 mg PO DAILY 05/08/21 05/25/21 ARIPiprazole [Abilify] 2 mg PO DAILY 05/25/21 05/25/21 amLODIPine [Norvasc] 5 mg PO DAILY 05/25/21 05/25/21 rOPINIRole HCL [Requip] 1 mg PO HS 05/25/21 05/25/21 Previous Rx's Medication Instructions Recorded Levofloxacin [Levaquin] 750 mg PO DAILY 5 Days #1 tab 05/26/21 HYDROcodone/APAP 5-325MG [[place] 1 each PO Q6HR PRN tab 05/28/21 5-325] Allergies Allergy/AdvReac Type Severity Reaction Status Date / Time ibuprofen AdvReac NIGHTMARES Verified 04/10/22 08:14 Iodinated Contrast Media AdvReac Nausea & Verified 04/10/22 08:14 [Iodinated Contrast Media - Vomiting IV Dye] povidone-iodine AdvReac Nausea & Verified 04/10/22 08:14 [From Betadine] Vomiting soap [From Betadine] AdvReac Nausea & Verified 04/10/22 08:14 Vomiting Review of Systems ROS Statement: Those systems with pertinent positive or pertinent negative responses have been documented in the HPI. ROS Other: All systems not noted in ROS Statement are negative. Constitutional: Denies: fever Eyes: Denies: eye pain ENT: Denies: ear pain Respiratory: Denies: cough Cardiovascular: Denies: chest pain Endocrine: Denies: fatigue Gastrointestinal: Denies: abdominal pain Genitourinary: Denies: dysuria Musculoskeletal: Reports: as per HPI Skin: Denies: rash Neurological: Denies: headache Past Medical History Past Medical History: Chest Pain / Angina, COPD, Fibromyalgia, GERD/Reflux, Hyperlipidemia, Hypertension Additional Past Medical History / Comment(s): bulging disc back, scolosis, degenerative bone disease, curvature of spine History of Any Multi-Drug Resistant Organisms: None Reported Past Surgical History: Back Surgery, Breast Surgery, Heart Catheterization With Stent, Hysterectomy, Orthopedic Surgery Additional Past Surgical History / Comment(s): LT BREAST BX stent to Left Cx by Dr Alex on 05/10/20 RCA totally occluded. LT KNEECAP SX. BACK INJECTIONS. SINUS SX. RT CTR Past Anesthesia/Blood Transfusion Reactions: No Reported Reaction Date of Last Stent Placement:: 05/10/20 Past Psychological History: Anxiety, Depression Smoking Status: Current every day smoker Past Alcohol Use History: None Reported Past Drug Use History: None Reported - Past Family History Mother Family Medical History: Cancer General Exam Limitations: no limitations General appearance: alert, in no apparent distress Head exam: Present: other (Abrasion to nose and chin without bony tenderness) Eye exam: Present: normal appearance, PERRL, EOMI Neck exam: Present: normal inspection. Absent: tenderness Respiratory exam: Present: normal lung sounds bilaterally Cardiovascular Exam: Present: regular rate, normal rhythm GI/Abdominal exam: Present: soft. Absent: tenderness Extremities exam: Present: normal inspection Neurological exam: Present: alert, CN II-XII intact, other (Slurred speech is present.). Absent: motor sensory deficit Expanded Patient oriented to: Present: person, place Cranial nerves: EOM's Intact: Normal, Facial Sensation: Normal Sensory exam: Upper Extremity Light Touch: Normal, Lower Extremity Light Touch: Normal Motor strength exam: RUE: 4, LUE: 4, RLE: 4, LLE: 4 Eye Response: (4) open spontaneously Motor Response: (6) obeys commands Verbal Response: (4) confused conversation Psychiatric exam: Present: normal affect, normal mood Skin exam: Present: normal color Course Vital Signs 04/10/22 04/10/22 08:05 10:12 Temperature 96.9 F L Pulse Rate 79 79 Respiratory 16 18 Rate Blood Pressure 137/90 134/98 O2 Sat by Pulse 97 96 Oximetry EKG Findings - EKG Comments: EKG Findings:: Sinus rhythm rate 76. MT 125. QRS 89. QT 390. QTC 41. Normal axis. Normal QRS. No acute ST change. Medical Decision Making - Medical Decision Making Further history taken from family. Patient has no primary care physician, patient no longer sees Dr. Orellana. Family also states slurred speech is not chronic and is new. Family is concerned regarding this. Family is also concerned regarding patient's current living conditions. There is concern regarding other family member that helps take care of her that has problems with alcohol. Family does not feel comfortable with her going back to that environment. Patient does have continued slurred speech. CVA cannot be completely ruled out. Unclear onset, therefore patient is not a candidate for TPA. [facility] has been paged for admission covering hospital call. - Lab Data Result diagrams: 04/10/22 08:51 04/10/22 08:51 Lab Results 04/10/22 04/10/22 04/10/22 Range/Units 08:51 08:51 08:51 WBC 6.8 (3.8-10.6) k/uL RBC 4.40 (3.80-5.40) m/uL Hgb 13.8 (11.4-16.0) gm/dL Hct 42.0 (34.0-46.0) % MCV 95.5 (80.0-100.0) fL MCH 31.4 (25.0-35.0) pg MCHC 32.8 (31.0-37.0) g/dL RDW 15.2 (11.5-15.5) % Plt Count 251 (150-450) k/uL MPV 7.9 Neutrophils % 48 % Lymphocytes % 40 % Monocytes % 6 % Eosinophils % 2 % Basophils % 1 % Neutrophils # 3.3 (1.3-7.7) k/uL Lymphocytes # 2.7 (1.0-4.8) k/uL Monocytes # 0.4 (0-1.0) k/uL Eosinophils # 0.2 (0-0.7) k/uL Basophils # 0.1 (0-0.2) k/uL PT 10.2 (9.0-12.0) sec INR 0.9 (<1.2) APTT 24.7 (22.0-30.0) sec Sodium 143 (137-145) mmol/L Potassium 3.9 (3.5-5.1) mmol/L Chloride 110 H (98-107) mmol/L Carbon Dioxide 26 (22-30) mmol/L Anion Gap 7 mmol/L BUN 17 (7-17) mg/dL Creatinine 0.73 (0.52-1.04) mg/dL Est GFR (CKD-EPI)AfAm >90 (>60 ml/min/1.73 sqM) Est GFR (CKD-EPI)NonAf 86 (>60 ml/min/1.73 sqM) Glucose 102 H (74-99) mg/dL Plasma Lactic Acid Chauncey (0.7-2.0) mmol/L Calcium 9.9 (8.4-10.2) mg/dL Total Bilirubin 0.3 (0.2-1.3) mg/dL AST 21 (14-36) U/L ALT 7 (4-34) U/L Alkaline Phosphatase 99 (38-126) U/L Creatine Kinase 57 (30-135) U/L Troponin I (0.000-0.034) ng/mL Total Protein 7.3 (6.3-8.2) g/dL Albumin 4.3 (3.5-5.0) g/dL Serum Alcohol <10 mg/dL 04/10/22 04/10/22 Range/Units 08:51 08:51 WBC (3.8-10.6) k/uL RBC (3.80-5.40) m/uL Hgb (11.4-16.0) gm/dL Hct (34.0-46.0) % MCV (80.0-100.0) fL MCH (25.0-35.0) pg MCHC (31.0-37.0) g/dL RDW (11.5-15.5) % Plt Count (150-450) k/uL MPV Neutrophils % % Lymphocytes % % Monocytes % % Eosinophils % % Basophils % % Neutrophils # (1.3-7.7) k/uL Lymphocytes # (1.0-4.8) k/uL Monocytes # (0-1.0) k/uL Eosinophils # (0-0.7) k/uL Basophils # (0-0.2) k/uL PT (9.0-12.0) sec INR (<1.2) APTT (22.0-30.0) sec Sodium (137-145) mmol/L Potassium (3.5-5.1) mmol/L Chloride (98-107) mmol/L Carbon Dioxide (22-30) mmol/L Anion Gap mmol/L BUN (7-17) mg/dL Creatinine (0.52-1.04) mg/dL Est GFR (CKD-EPI)AfAm (>60 ml/min/1.73 sqM) Est GFR (CKD-EPI)NonAf (>60 ml/min/1.73 sqM) Glucose (74-99) mg/dL Plasma Lactic Acid Chauncey 0.8 (0.7-2.0) mmol/L Calcium (8.4-10.2) mg/dL Total Bilirubin (0.2-1.3) mg/dL AST (14-36) U/L ALT (4-34) U/L Alkaline Phosphatase (38-126) U/L Creatine Kinase (30-135) U/L Troponin I <0.012 (0.000-0.034) ng/mL Total Protein (6.3-8.2) g/dL Albumin (3.5-5.0) g/dL Serum Alcohol mg/dL Disposition Clinical Impression: Syncope, Slurred speech Disposition: ADMITTED IP TO THIS [facility] Is patient prescribed a controlled substance at d/c from ED?: No Decision Time: 10:19
[2022-04-10 09:09] LABS: Basophils # (A) 0.1 k/uL (0-0.2); Basophils % (A) 1 %; Eosinophils # (A) 0.2 k/uL (0-0.7); Eosinophils % (A) 2 %; HGB 13.8 gm/dL (11.4-16.0); Lymphocytes # (A) 2.7 k/uL (1.0-4.8); Lymphocytes % (A) 40 %; MCH 31.4 pg (25.0-35.0); MCHC 32.8 g/dL (31.0-37.0); MCV 95.5 fL (80.0-100.0); Mean Platelet Volume 7.9; Monocytes # (A) 0.4 k/uL (0-1.0); Monocytes % (A) 6 %; Neutrophils # (A) 3.3 k/uL (1.3-7.7); Neutrophils % (A) 48 %; Platelet Count 251 k/uL (150-450); RDW 15.2 % (11.5-15.5); WBC 6.8 k/uL (3.8-10.6)
[2022-04-10 09:17] LABS: INR 0.9 (<1.2); Partial Thromboplastin Time 24.7 sec (22.0-30.0); Prothrombin Time 10.2 sec (9.0-12.0)
[2022-04-10 09:21] LABS: ALT 7 U/L (4-34); AST 21 U/L (14-36); African American GFR (CKD) >90 (>60 ml/min/1.73 sqM); Albumin 4.3 g/dL (3.5-5.0); Alcohol <10 mg/dL; Alkaline Phosphatase 99 U/L (38-126); Anion Gap 7 mmol/L; Blood Urea Nitrogen 17 mg/dL (7-17); Calcium 9.9 mg/dL (8.4-10.2); Carbon Dioxide 26 mmol/L (22-30); Chloride 110 mmol/L (98-107); Creatine Kinase 57 U/L (30-135); Glucose 102 mg/dL (74-99); Non-African American GFR(CKD) 86 (>60 ml/min/1.73 sqM); Potassium 3.9 mmol/L (3.5-5.1); Sodium 143 mmol/L (137-145); Total Bilirubin 0.3 mg/dL (0.2-1.3); Total Protein 7.3 g/dL (6.3-8.2)
--- NOTE | 2022-04-10 09:43 | CT ---
EXAMINATION TYPE: CT brain wo con DATE OF EXAM: 04/10/2022 COMPARISON: 05/08/2021 HISTORY: weakness, ams CT DLP: 1125.4 mGycm Automated exposure control for dose reduction was used. FINDINGS: Orbits are symmetric. No variant. Intracranial vascular calcifications are noted. Correlate for previ ous sinus surgery mild residual chronic sinusitis. No midline shift or mass effect. No acute hemorrhage. There is degenerative change of the greater lob e component. Faint low-attenuation white matter nonspecific but most of the white matter ischemia. IMPRESSION: NO ACUTE HEMORRHAGE OR MASS EFFECT. THE DEGENERATIVE NONSPECIFIC WHITE MATTER CHANGES DISCUSSED AB OVE
--- NOTE | 2022-04-10 09:57 | XR ---
EXAMINATION TYPE: XR lumbar spine 2 or 3V DATE OF EXAM: 04/10/2022 CLINICAL HISTORY: pain TECHNIQUE: Three views of the lumbar spine are submitted. COMPARISON: None. FINDINGS: There are 5 lumbar type vertebral bodies identified. The lumbar spine shows satisfactory alignment w ithout evidence of acute fracture or dislocation. Vertebral body heights are within normal limits. Severe degenerative change L5-S1. The overlying soft tissue appears unremarkable. IMPRESSION: No acute fracture or dislocation is seen in the lumbar spine. ICD 10 NO FRACTURE, INITIAL EVALUATION
--- NOTE | 2022-04-10 09:58 | XR ---
EXAMINATION TYPE: XR chest 2V DATE OF EXAM: 04/10/2022 COMPARISON: 05/26/2021 TECHNIQUE: PA and lateral views submitted. HISTORY: Pain FINDINGS: The lungs are clear and there is no pneumothorax, pleural effusion, or focal pneumonia. Hyperinflati on. There is a metallic foreign body overlying the mid thoracic cavity correlate clinically. No overt failure. Atherosclerotic change aorta. Diffuse osteopenia. Heart size normal. Degenerative changes s pine. IMPRESSION: 1. A rounded metallic foreign body overlying the mid thoracic level correlate clinically for foreign body within the mid esophagus, airway or possibly prior surgery.
[2022-04-10] MEDS ORDERED: NALOXONE 0.4 MG/ML 1 ML VIAL IV PRN (10:20)
[2022-04-10 10:38] LABS: Appearance,Urine Clear (Clear); Bilirubin,Urine Negative (Negative); Blood,Urine Negative (Negative); Color,Urine Light Yellow; Glucose,Urine (UA) Negative (Negative); Ketones,Urine Negative (Negative); Leukocyte Esterase,Urine Negative (Negative); Nitrite,Urine Negative (Negative); PH, Urine 6.5 (5.0-8.0); Protein,Urine Negative (Negative); Specific Gravity,Urine 1.013 (1.001-1.035); Urobilinogen,Urine <2.0 mg/dL (<2.0)
--- NOTE | 2022-04-10 12:12 | CT ---
EXAMINATION TYPE: CT chest wo con DATE OF EXAM: 04/10/2022 COMPARISON: 08/16/2020 HISTORY: A-FIB CT DLP: 172.[address] of the chest was performed with lung and mediastinal window settings submitted. The la ck of contrast limits evaluation of the vascular, mediastinal and parenchymal structures including th e upper abdomen. LUNGS: The lungs are clear and free of infiltrate. No atelectasis. No pulmonary nodule or mass is de tected. No pleural effusion. No CT evidence of interstitial lung disease. MEDIASTINUM/FATMATA: Thoracic aorta is of normal caliber with limited evaluation given lack of contrast . The heart is not enlarged. No evidence for mediastinal mass. No lymph nodes greater than 1cm. C alcified left hilar lymph nodes. UPPER ABDOMEN: No significant abnormality is seen. OTHER: No significant other abnormality. IMPRESSION: 1. Coronary artery calcifications. 2. Calcified left hilar lymph nodes compatible with remote granulomatous disease.
[2022-04-10] MEDS: KETOROLAC 15 MG/ML 1 ML VIAL IVP SCH ×2 (14:24→23:36)
--- NOTE | 2022-04-10 14:34 | P.CN ---
Psychiatric Consult - . Consult date: 04/10/22 Consult:: 04/10/22 13:55 IDENTIFYING DATA: This patient is a 67-year-old female currently lives with her sister, is and is unemployed. REASON FOR REFERRAL: Psychiatry was consulted for depression and overdose HISTORY OF PRESENT ILLNESS: The patient presented to the hospital after having a fall in the bathroom and apparently hit her face. Patient apparently has a history of depression and overdose in the past. Patient apparently had swallowed pennies along with Xanax approximately 20 of them in a suicide attempt before having a fall. Patient Apparently has been off medications and been dealing with depression for the past 3 or 4 years. Patient apparently has stressors including her dying and "wanting to be with him" and also brother committing suicide 2 years ago. She states that she is also been having poor sleep approximately 4 hours a day for appetite. Patient was fairly lethargic and dysarthric in her speech. She was difficult to redirect in conversation. She states that she's been having poor appetite. She claims that she is "tired of being in pain" and also stated "I want to be with my ". Accounts Payable Coordinator spoke with patient's daughter and granddaughter who states that patient did overdose in a suicide attempt and frequently makes threats of suicide and also depression at home.. At this time patient denies any homical ideations, intent or plan. However patient does claim that she is still feeling suicidal however no intent or plan. Patient denies any auditory, visual hallucinations and denies any paranoia or delusions. Patients admits to using cigarettes only PAST PSYCHIATRIC HISTORY: Patient has a a history of anxiety and depression. Patient was previously on trazodone, Cymbalta and Abilify.. Patient denies any previous psychiatric hospitalizations. Patient denies any psychiatric outpatient follow-up. Patient did have 1 overdose suicide attempt in the past. Past Medical History: Chest Pain / Angina, COPD, Fibromyalgia, GERD/Reflux, Hyperlipidemia, Hypertension Additional Past Medical History / Comment(s): bulging disc back, scolosis, degenerative bone disease, curvature of spine ALLERGIES: as per EMR. CHEMICAL DEPENDENCY HISTORY: as per HPI. FAMILY PSYCHIATRIC/SUBSTANCE USE HISTORY: Claims that her brother committed suicide. SOCIAL HISTORY: Patient was born and raised in [facility]. She states that she completed up to 11th grade in school. 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 She is currently , lives with her sister in a house. MENTAL STATUS EXAM: General Appearance: Patient appears to be thin, lethargic, stated age is pleasant, and attempts to be cooperative. Patient appears to have fair hygiene and grooming wearing hospital gown with poor eye contact. Behavior: Patient is calmly lying in bed without any agitated behavior. Lethargic. Speech: Patient's speech is fluent and nonpressured. Monotone, concrete. Mood/Affect: Patient reports their mood is "depressed", affect is congruent Suicidality/Homicidality: Patient denies having any homicidal ideation intent or plan. Admits to suicidal ideations no intent or plan Perceptions: Patient denies any visual hallucinations and denies any auditory hallucinations Though content/process: [place], poverty of content. No paranoia or delusions. Focus on her stressors Memory and concentration: AOX3, grossly intact for the purposes of this session. Poor attention span. Judgment and insight: poor IMPRESSIONS: Major depressive disorder, without psychotic features Overdose on medications Nicotine dependence PLAN: -At this time patient DOES meet criteria for inpatient psychiatric admission. -Delirium precautions recommended with patient including - avoiding use of narcotics and BANQUET COORDINATOR sedatives, limit anticholinergic medications when possible, frequent re-orientation, minimize use of restraints, open window shades during the day and close them at night -Would recommend the following medication changes/additions: Would recommend holding off on psychiatric medications at this time until patient is medically cleared and transferred on some mental health unit. -Continue 1:1 sitter for safety -Cannot leave AMA at this time. Patient will need a petition and certification if attempting to leave AMA. -When medically stable, patient is eligible for transfer to a psych bed when available. -Communicated plan to patient's nurse -Psychiatry will sign off at this time -Please contact with any questions. 04/10/22 14:26
--- NOTE | 2022-04-10 15:05 | P.HPIM ---
History of Present Illness H&P Date: 04/10/22 This is a 67-year-old female who was recently brought to the emergency department via EMS following a fall and patient was apparently found in the room and family had to force the door open his patient was unconscious and brought here for further evaluation and possible stroke. Patient did strike her face on the right side of the chin with some dried blood and abrasion noted no need for suture repair. Per daughter and stepdaughter at the bedside patient has been living with other daughter who is unstable as well and has history of EtOH and has been living in that situation since patient's . Patient is poorly kept and is depressed and has previous history of suicide attempts. Patient has been falling more often and is extremely weak. Patient was noted to have slurred speech and per daughter's at the bedside this is not her baseline. Of note per daughter's there was a bottle of Klonopin that was empty noted on the patient's bed and also stacks of pennies. Patient denies taking these medications although this appears to be a component of an overdose on such m edications. Psychiatry will be consulted and recommends suicide precautions. Will obtain UDS. Patient has past medical history of coronary artery disease, chest pain, angina, COPD, fibromyalgia, chronic back pain, GERD, hyperlipidemia, hypertension, degenerative disc disease, osteoporosis, anxiety and depression. Patient admits to smoking and denies alcohol or other illicit drug use. Patient does have garbled speech and is extremely lethargic but arousable and appears to be talking coherently at times. Patient did admit to feeling depressed and suicidal with no plans for intent at this time. Patient denies taking Klonopin that was found on her bed. She does admit to having some back pain and has past medical history of overdose on [facility] and will avoid narcotic and STEEL LAYER agents and have added Toradol. On admission patient had CT of the brain which showed no acute hemorrhage or mass effect and degenerative nonspecific white matter changes of the greater lobe that is nonspecific. Patient had other imaging done of the lumbar spine showing no acute fracture or dislocation noted in the LS- spine, chest x-ray showed clear lungs with no pneumothorax or pleural effusion or pneumonia and there is a metallic foreign body overlying the mid thoracic cavity with no overt failure. Patient denies ingesting pennies although this appears to look like pennies and will monitor closely for passing of these metallic foreign bodies. Labs: WBC is 6.8, hemoglobin is 13.8, platelets are 251, sodium is 143, potassium is 3.9, BUN is 17, creatinine 0.73, calcium is 9.9, total bili is 0.3, creatinine kinase is 57, troponin 2 is negative, urinalysis is negative. Review Of Systems: Constitutional: No fever, no chills, no night sweats. No weight change. Reports weakness, reports fatigue or lethargy. No daytime sleepiness. EENT: No headache. No blurred vision or double vision, no loss of vision. No loss of Hearing, no ringing in the ears, no dizziness. No nasal drainage or congestion. No epistaxis. No sore throat. Lungs: No shortness of breath, cough, no sputum production. No wheezing. Cardiovascular: No chest pain, no lower extremity edema. No palpitations. No paroxysmal nocturnal dyspnea. No orthopnea. No lightheadedness or dizziness. No syncopal episodes. Abdominal: No abdominal pain. No nausea, vomiting. No diarrhea. No constipation. No bloody or tarry stools.. No loss of appetite. Genitourinary: No dysuria, increased frequency, urgency. No urinary retention. Musculoskeletal: Reports myalgias. No muscle weakness, reports increased gait dysfunction, and frequent falls. Reports chronic back pain. No neck pain. Integumentary: No wounds, no lesions. No rash or pruritus. No unusual bruising. No change in hair or nails. Neurologic: No aphasia. No facial droop. No change in mentation. No head injury. No headache. No paralysis. No paresthesia. Psychiatric: Reports depression and suicidal ideation with no plan. No anxiety. No mood swings. Endocrine: No abnormal blood sugars. No weight change. No excessive sweating or thirst. No cold intolerance. PHYSICAL EXAMINATION: GENERAL: The patient is alert and oriented x2-3 although extremely fatigued, thin built elderly female HEENT: Pupils are round and equally reacting to light. EOMI. no scleral icterus. No conjunctival pallor. Normocephalic, atraumatic. No pharyngeal erythema. No thyromegaly. Dry oral mucosa CARDIOVASCULAR: S1 and S2 muffled PULMONARY: diminished breath sounds bilaterally with no wheezing or rhonchi noted. ABDOMEN: soft. Nontender on exam. non-distended, normoactive bowel sounds. No palpable organomegaly. MUSCULOSKELETAL: No joint swelling or deformity. EXTREMITIES: No cyanosis, clubbing, or pedal edema. NEUROLOGICAL: Gross neurological examination did not reveal any focal deficits. Diffuse weakness SKIN: No rashes. Assessment: Fall with possible overdose on Klonopin Slurred speech, rule out TIA versus CVA, suspicion is low and most likely Klonopin effect and will await neurology consultation. CT brain was negative COPD, not in exacerbation Fibromyalgia Gastroesophageal reflux disease Hyperlipidemia Hypertension Unsteady gait and more frequent falls at home Chronic back pain Depression with suicidal ideation GI prophylaxis DVT prophylaxis Full code Plan: Recommend to continue with current medications and management with neurology consulted. 2 daughters at the bedside Arline and Sheila the patient does not currently live with report many social issues with current living situation and patient has been noncompliant with medication and has not seen medical treatment in quite some time. Patient does have depression and has previous history of intentional overdoses. Patient reportedly lost her 1-2 years ago and has had steady decline since. Patient is not eating and is poorly kept and is extremely weak. Per daughters at the bedside they will be taking her home with them and she will not be returning to her current living situation with her other daughter. Will have physical therapy evaluate the patient and also await for neurology and psychiatric evaluation. Apparently there was a Klonopin bottle that was empty found on her bed although patient denies this use and will order a Klonopin level along with UDS. Will add Toradol for pain as patient has chronic pain and recommend limiting the use of STEEL LAYER or narcotic agents. Will have physical therapy evaluate the patient. Patient has been seen and evaluated by PT/OT therapy recommending rehab and patient [facility]. Appropriate home medications resumed and recommend to continue monitoring Accu-Cheks before meals and at bedtime and use sliding scale as needed. When talking with the patient at the bedside by herself patient does report she is depressed and suicidal although reports she has no plan and denies taking Klonopin pills. An incidental finding of metallic foreign bodies on chest x-ray appear to be pennies and per family there were marlyn stacks noted on her bed as well. Other imaging status post fall have been negative for any fracture. Patient is not to leave AMA and will require petition and ce rtification. Daughters at the bedside are agreeable with this and will continue to follow and update them as much as possible. Encouraged the daughters to stay at the bedside and frequently reorient the patient. The impression and plan of care has been dictated by Hailee Dale, nurse practitioner as directed. Dr. Shanel WALTER I have performed a history and examination and MDM of this patient, discussed the same with the dictator, and agree with the dictator's assessment and plan as written ,documented as a scribe. Based on total visit time, I have performed more than 50% of the visit. Any additional findings or plans will be noted. Past Medical History Past Medical History: Coronary Artery Disease (CAD), Chest Pain / Angina, COPD, Fibromyalgia, GERD/Reflux, Hyperlipidemia, Hypertension, Pneumonia Additional Past Medical History / Comment(s): Chronic back pain, DDD, bulging discs, scoliosis, osteoporosis. History of Any Multi-Drug Resistant Organisms: None Reported Past Surgical History: Back Surgery, Breast Surgery, Heart Catheterization With Stent, Hysterectomy, Orthopedic Surgery Additional Past Surgical History / Comment(s): Back injections, L patellar surgery, R carpal tunnel release, L breast benign biopsy, sinus surgery, EGD Past Anesthesia/Blood Transfusion Reactions: No Reported Reaction Date of Last Stent Placement:: 05/10/20 Smoking Status: Current every day smoker - Past Family History Mother Family Medical History: Cancer Additional Family Medical History / Comment(s): Mother had lupus and TB Father History Unknown: Yes Medications and Allergies Home Medications Medication Instructions Recorded Confirmed Type No Known Home Medications 04/10/22 04/10/22 History Allergies Allergy/AdvReac Type Severity Reaction Status Date / Time ibuprofen AdvReac NIGHTMARES Verified 04/10/22 10:24 Iodinated Contrast Media AdvReac Nausea & Verified 04/10/22 10:24 [Iodinated Contrast Media - Vomiting IV Dye] povidone-iodine AdvReac Nausea & Verified 04/10/22 10:24 [From Betadine] Vomiting soap [From Betadine] AdvReac Nausea & Verified 04/10/22 10:24 Vomiting Physical Exam Vitals: Vital Signs Temp Pulse Resp BP Pulse Ox 04/10/22 10:12 79 18 134/98 96 04/10/22 08:05 96.9 F L 79 16 137/90 97 Intake and Output 07/12/22 07/13/22 07/13/22 22:59 06:59 14:59 Other: Weight 40.823 kg Results CBC & Chem 7: 04/10/22 08:51 04/10/22 08:51 Labs: Abnormal Lab Results - Last 24 Hours (Table) 04/10/22 Range/Units 08:51 Chloride 110 H (98-107) mmol/L Glucose 102 H (74-99) mg/dL Thrombosis Risk Factor Assmnt - Choose All That Apply Any of the Below Risk Factors Present?: Yes Each Factor Represents 1 point: Abnormal pulmonary function (COPD) Other Risk Factors: Yes Each Risk Factor Represents 2 Points: Age 61-74 years Other congenital or acquired thrombophilia - If yes, enter type in comment: No Thrombosis Risk Factor Assessment Total Risk Factor Score: 3 Thrombosis Risk Factor Assessment Level: Moderate Risk
--- NOTE | 2022-04-10 17:45 | XR ---
EXAMINATION TYPE: XR thoracic spine complete DATE OF EXAM: 04/10/2022 5:29 PM INDICATION: Patient age:Female; 67 years old; Reason for study: Back pain rule out fracture; COMPARISON: CT chest 04/10/2022 TECHNIQUE: Frontal, lateral and coned in C7 views FINDINGS: Mild degenerative changes of the spine with mild dextroscoliosis. Osteophyte formation thro ughout the endplates of the visualized vertebral bodies. Visualized portions of the lungs are unremar kable. No evidence of acute fracture. Alignment and vertebral height are within normal limits. IMPRESSION: No acute osseous pathology. Mild multilevel disc degeneration changes with scoliosis.
--- NOTE | 2022-04-10 22:44 | US ---
EXAMINATION TYPE: US carotid duplex BILAT DATE OF EXAM: 04/10/2022 COMPARISON: NONE CLINICAL HISTORY: slurred speech, smoker. slurred speech, syncope, altered mental status EXAM MEASUREMENTS: RIGHT: Peak Systolic Velocity (PSV) cm/sec ----- Right CCA: 41.8 ----- Right ICA: 80.1 ----- Right ECA: 75.7 ICA/CCA ratio: 1.9 RIGHT: End Diastole cm/sec ----- Right CCA: 13.9 ----- Right ICA: 30.7 ----- Right ECA: 13.1 LEFT: Peak Systolic Velocity (PSV) cm/sec ----- Left CCA: 76.6 ----- Left ICA: 79.2 ----- Left ECA: 233.9 ICA/CCA ratio: 1.0 LEFT: End Diastole cm/sec ----- Left CCA: 21.0 ----- Left ICA: 31.6 ----- Left ECA: 38.7 VERTEBRALS (direction of flow): Right Vertebral: Antegrade Left Vertebral: Antegrade Rhythm: Normal mild to moderate plaque bilateral bifurcations. increased velocities left ECA IMPRESSION: Elevated velocity in the left external carotid artery suggestive of more than 70% stenosis. There is less than 50% stenosis in both internal carotid arteries. Bilateral plaque formation. There is antegrade flow in the vertebral arteries. Criteria for Assigning % of Stenosis / Diameter reduction (Estimation based on the indirect measurements of the internal carotid artery velocities (ICA PSV). 1. Normal (no stenosis)=ICA PSV < 125 cm/s: ratio < 2.0: ICA EDV<40 cm/s. 2. Less than 50% stenosis=ICA PSV < 125 cm/s: ratio < 2.0: ICA EDV<40 cm/s. 3. 50 to 69% stenosis=ICA PSV of 125 to 230 cm/s: ration 2.0 ? 4.0: ICA EDV 40-100 cm/s. 4. Greater than 70% stenosis to near occlusion= ICA PSV > 230 cm/s: ratio > 4.0: ICA EDV > 100 cm/s. 5. Near occlusion= ICA PSV velocities may be low or undetectable: variable ratio and ICA EDV. 6. Total occlusion=unable to detect flow.
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
[2022-04-11] MEDS: KETOROLAC 15 MG/ML 1 ML VIAL IVP SCH ×5 (01:15→23:05)
[2022-04-11] MEDS: ACETAMINOPHEN TAB 325 MG TAB PO PRN (03:49)
[2022-04-11 04:59] LABS: Urine Alcohol Negative (Negative); Urine Barbiturate Negative (Negative); Urine Cocaine Negative (Negative); Urine Methadone Negative (Negative); Urine Opiates Negative (Negative); Urine Phencyclidine Negative (Negative)
--- NOTE | 2022-04-11 09:14 | XR ---
EXAMINATION TYPE: XR abdomen 1V DATE OF EXAM: 04/11/2022 COMPARISON: 08/16/2020 HISTORY: Possible foreign body TECHNIQUE: One view abdominal series FINDINGS: The osseous structures are intact. The bowel gas pattern is nonspecific. There is a metallic density overlying the right lower quadrant which could represent a foreign body. Vascular calcifications deg enerative changes spine. Retained fecal debris throughout the colon correlated patient. IMPRESSION: 1. Metallic density overlying the right iliac bone may represent foreign body within the distal small bowel or cecum. Correlate clinically.
--- NOTE | 2022-04-11 13:02 | P.CONS ---
History of Present Illness - Reason for Consult Consult date: 04/11/22 Esophageal foreign body Requesting physician: Hailee Dale - Chief Complaint Fall - History of Present Illness This is a pleasant 67-year-old female who presented to the emergency department yesterday morning after sustaining a fall and having complaints of back pain. Patient states she did strike her head. She has a past medical history including coronary artery disease, COPD, fibromyalgia, GERD, hyperlipidemia, hypertension chronic back pain and is a current every day smoker. They're currently ruling out possible is stroke. However it was reported that she may have taken several Xanax or Klonopin the night before an attempt for intentional overdose. She had a CT of the brain that showed no acute changes. She had a chest x-ray yesterday morning that showed a rounded metallic foreign body overlying the mid thoracic level correlate for foreign body within the midesophagus airway or possible prior surgery. Gastroenterology was consulted for esophageal foreign body. Later in the afternoon she had a chest CT that did not show any foreign body. This morning she had an abdominal x-ray that showed a metallic density overlying the right iliac bone may represent foreign body within the distal small bowel or cecum. Correlate clinically. Patient denies swallowing any type of metallic object. Her granddaughter is at the bedside and states that there were several pennies on the bed they are unsure if when she fell she was holding pennies and may have swallowed one. The patient denies any difficulty with swallowing, no feeling of anything being stuck in her throat. She has been eating solid foods and drinking liquids without any difficulty. She denies any abdominal pain nausea or vomiting. Review of Systems REVIEW OF SYSTEMS: CARDIOPULMONARY: No chest pain or shortness of breath. Gastrointestinal: No abdominal pain. No nausea or vomiting. No hematemesis, coffee-ground emesis. No rectal bleeding, or melena. GENITOURINARY: No dysuria or hematuria. MUSCULOSKELETAL: Reports normal range of motion. Chronic back pain. SKIN: No rashes. No jaundice. ENDOCRINE: No chills, fevers. No excessive weight gain or loss. No polydipsia or polyuria. PSYCHIATRIC: Depressed. Attempted suicide. NEUROLOGY: No change in mental status. Denies dizziness, headache. ENT: Vision unremarkable. CONSTITUTIONAL: No recent weight loss. No fever, chills, night sweats. Past Medical History Past Medical History: Coronary Artery Disease (CAD), Chest Pain / Angina, COPD, Fibromyalgia, GERD/Reflux, Hyperlipidemia, Hypertension, Pneumonia Additional Past Medical History / Comment(s): Chronic back pain, DDD, bulging discs, scoliosis, osteoporosis. History of Any Multi-Drug Resistant Organisms: None Reported Past Surgical History: Back Surgery, Breast Surgery, Heart Catheterization With Stent, Hysterectomy, Orthopedic Surgery Additional Past Surgical History / Comment(s): Back injections, L patellar surgery, R carpal tunnel release, L breast benign biopsy, sinus surgery, EGD Past Anesthesia/Blood Transfusion Reactions: No Reported Reaction Date of Last Stent Placement:: 05/10/20 Smoking Status: Current every day smoker - Past Family History Mother Family Medical History: Cancer Additional Family Medical History / Comment(s): Mother had lupus and TB Father History Unknown: Yes Medications and Allergies Home Medications Medication Instructions Recorded Confirmed Type No Known Home Medications 04/10/22 04/10/22 History Allergies Allergy/AdvReac Type Severity Reaction Status Date / Time ibuprofen AdvReac NIGHTMARES Verified 04/10/22 10:24 Iodinated Contrast Media AdvReac Nausea & Verified 04/10/22 10:24 [Iodinated Contrast Media - Vomiting IV Dye] povidone-iodine AdvReac Nausea & Verified 04/10/22 10:24 [From Betadine] Vomiting soap [From Betadine] AdvReac Nausea & Verified 04/10/22 10:24 Vomiting Physical Exam Vitals: Vital Signs Temp Pulse Pulse Resp BP BP Pulse Ox 04/11/22 03:51 97.7 F 78 16 132/83 96 04/10/22 23:40 97.7 F 81 16 134/85 95 04/10/22 20:00 97.5 F L 78 16 137/87 96 04/10/22 17:45 97.7 F 78 14 151/95 97 04/10/22 16:45 87 16 148/96 98 04/10/22 10:12 79 18 134/98 96 Intake and Output 04/10/22 04/11/22 04/11/22 22:59 06:59 14:59 Other: Voiding Method Toilet Toilet # Voids 2 1 General appearance: The patient is alert, oriented, appears in no acute distress. HET: Head is normocephalic and atraumatic. Conjunctiva pink. Sclera anicteric. Neck: Supple without lymphadenopathy. Trachea midline. Heart: S1 S2. Regular rate and rhythm. Lungs: Clear to auscultation. Abdomen: Soft, mild diffuse tenderness,, nondistended with bowel sounds. No guarding or rigidity. Skin: No rashes. No jaundice. Extremities: Normal skin color and turgor. No pedal edema. Neurological: No focal deficits. Alert and oriented x3. Results CBC & Chem 7: 04/10/22 08:51 04/10/22 08:51 Labs: Abnormal Lab Results - Last 24 Hours (Table) 04/10/22 04/10/22 Range/Units 08:51 10:10 Chloride 110 H (98-107) mmol/L Glucose 102 H (74-99) mg/dL U Benzodiazepines Scrn Positive A (Negative) Comments: Reports reviewed as stated in HPI Chest x-ray: report reviewed Abdominal x-ray: report reviewed CT scan - chest: report reviewed (Coronary artery calcification. Calcified left hilar lymph nodes compatible with remote granulomatous disease) Assessment and Plan (1) Esophageal foreign body Narrative/Plan: This 67-year-old female who presented to the emergency department yesterday morning after sustaining a fall. It was later found that she had attempted intentional overdose with Xanax and also was told that she had swallowed marlyn or pennies. Patient denies any knowledge or remembering swallowing any complaints. However she did have a chest x-ray that showed metallics esophageal foreign body, later that day she had a chest computed tomography scan that showed no foreign body and this morning underwent abdominal x-ray showing the me tallic foreign body had moved small bowel or cecum. The patient is denying any difficulty with swallowing no difficulty with breathing, she is eating a regular diet and swelling without any problems. There is no indication for any endoscopic procedures at this time as the optic seems to have passed the airway. Continue to monitor. Continue Protonix daily. Current Visit: Yes Status: Acute Code(s): T18.108A - UNSP FOREIGN BODY IN ESOPHAGUS CAUSING OTH INJURY, INIT SNOMED Code(s): 20527243 (2) Fall Current Visit: Yes Status: Acute Code(s): W19.XXXA - UNSPECIFIED FALL, INITIAL ENCOUNTER SNOMED Code(s): 2421030 (3) Intentional drug overdose Current Visit: Yes Status: Acute Code(s): T50.902A - POISONING BY UNSP DRUG/MEDS/BIOL SUBST, SELF-HARM, INIT SNOMED Code(s): 4066390424 Plan: 1. Continue symptomatic and supportive care 2. Protonix 40 mg daily 3. There is no indication for endoscopic evaluation at this time, appears deformed body has passed the airway/esophagus. 4. Diet as tolerated 5. Continue medical management Thank you for this consultation, we'll continue to follow. Dr. Jenny Cornelius I agree with the dictator's note, documented as a scribe by Linette Appiah.
[2022-04-11 13:42] VITALS: BMI 16.9
--- NOTE | 2022-04-11 13:52 | EEG ---
ELECTROENCEPHALOGRAM REPORT DATE OF SERVICE: 04/11/2022 PREAMBLE: This is a 67-year-old female with a syncopal spell, and drug overdose. This study is performed to evaluate for any epileptiform activity. EEG FINDINGS: This is a 21 channel digital EEG recorded with video component, utilizing 10/20 international system with referential and bipolar montages. Background consists of well-developed, moderately well regulated, mixed frequencies of 15 hertz beta, intermixed with some alpha activity seen in bihemispheric region. Background is posterior dominant, not clearly reactive to eye opening or closing. Intermittent bursts of moderate to high amplitude 2-3 hertz delta activity was seen also in bihemispheric region. Photic driving response was not clearly seen. Different stages of sleep were not seen. No focal or generalized epileptiform activity was seen. EKG channel showed no obvious arrhythmia. IMPRESSION: This is an abnormal EEG due to presence of mixed, fast frequency and some slow frequency activity seen in bihemispheric region. This is suggestive of generalized cerebral dysfunction as can be seen with encephalopathy or related to medication effect. No epileptiform activity was seen. MMODL / IJN: [id number] / [facility]
--- NOTE | 2022-04-11 15:05 | P.PN ---
Subjective Progress Note Date: 04/11/22 This is a 67-year-old female who was recently brought to the emergency department via EMS following a fall and patient was apparently found in the room and family had to force the door open his patient was unconscious and brought here for further evaluation and possible stroke. Patient did strike her face on the right side of the chin with some dried blood and abrasion noted no need for suture repair. Per daughter and stepdaughter at the bedside patient has been living with other daughter who is unstable as well and has history of EtOH and has been living in that situation since patient's . Patient is poorly kept and is depressed and has previous history of suicide attempts. Patient has been falling more often and is extremely weak. Patient was noted to have slurred speech and per daughter's at the bedside this is not her baseline. Of note per daughter's there was a bottle of Klonopin that was empty noted on the patient's bed and also stacks of pennies. Patient denies taking these medications although this appears to be a component of an overdose on such medications. Psychiatry will be consulted and recommends suicide precautions. Will obtain UDS. Patient has past medical history of coronary artery disease, chest pain, angina, COPD, fibromyalgia, chronic back pain, GERD, hyperlipidemia, hypertension, degenerative disc disease, osteoporosis, anxiety and depression. Patient admits to smoking and denies alcohol or other illicit drug use. Patient does have garbled speech and is extremely lethargic but arousable and appears to be talking coherently at times. Patient did admit to feeling depressed and suicidal with no plans for intent at this time. Patient denies taking Klonopin that was found on her bed. She does admit to having some back pain and has past medical history of overdose on Ultram and will avoid narcotic and [employer] agents and have added Toradol. On admission patient had CT of the brain which showed no acute hemorrhage or mass effect and degenerative nonspecific white matter changes of the greater lobe that is nonspecific. Patient had other imaging done of the lumbar spine showing no acute fracture or dislocation noted in the LS- spine, chest x-ray showed clear lungs with no pneumothorax or pleural effusion or pneumonia and there is a metallic foreign body overlying the mid thoracic cavity with no overt failure. Patient denies ingesting pennies although this appears to look like pennies and will monitor closely for passing of these metallic foreign bodies. 04/11/2022 Patient is seen and evaluated in follow-up this morning continues to be fatigued although easily arousable with suicide sitter noted at the bedside. Patient has been evaluated by psychiatry and will be requiring admission to psychiatric unit once medically stable to evaluate further her depression and suicidal ideations. Patient is being followed by neurology and underwent EEG which was abnormal most likely secondary to medication effect with no epileptiform discharges noted. Patient reports to tolerating diet with no reports of nausea or vomiting or difficulty passing food. On x-ray yesterday there was a metallic foreign object noted and discussed with GI and instructed to obtain an abdominal x-ray to see if the foreign object had past or if patient would be requiring endoscopic intervention if the foreign object remained in place. Abdominal x- ray was done and object has noted to move within the distal small bowel or cecum. Social work has also been consulted to assess current living situation. Urine drug screen was positive for benzodiazepines otherwise negative. Vital signs remained stable patient is afebrile and denies any chest pain or shortness of breath. Patient is reporting lower back pain which she states is chronic. PHYSICAL EXAMINATION: GENERAL: The patient is alert and oriented x2-3 although extremely fatigued, easily arousable, thin built elderly female HEENT: Pupils are round and equally reacting to light. EOMI. no scleral icterus. No conjunctival pallor. Normocephalic, atraumatic. No pharyngeal erythema. No thyromegaly. Dry oral mucosa CARDIOVASCULAR: S1 and S2 muffled PULMONARY: diminished breath sounds bilaterally with no wheezing or rhonchi noted. ABDOMEN: soft. Nontender on exam. non-distended, normoactive bowel sounds. No palpable organomegaly. MUSCULOSKELETAL: No joint swelling or deformity. EXTREMITIES: No cyanosis, clubbing, or pedal edema. NEUROLOGICAL: Gross neurological examination did not reveal any focal deficits. Diffuse weakness SKIN: No rashes. Assessment: Fall with possible overdose on benzodiazepines Slurred speech, ruled out TIA/CVA, suspicion is low and most likely benzo effect. CT brain was negative Ingestion of foreign metal object, possibly pennies, with x-rays showing passing into the cecum COPD, not in exacerbation Fibromyalgia Gastroesophageal reflux disease Hyperlipidemia Hypertension Unsteady gait and more frequent falls at home Chronic back pain Depression with suicidal ideation GI prophylaxis DVT prophylaxis Full code Plan: Recommend to continue with current medications and management with neurology following. EEG was done which was abnormal due to encephalopathy with no epileptiform discharges noted. GI Dr. Adryan rizvi consulted and evaluated the patient as there appears to be some ingested foreign metallic devices most l ikely pennies that was found near the esophagus yesterday on exam and CT of the chest was not evident of obstruction and hard to visualize. Repeat abdominal x- ray this morning shows the foreign object has moved into the cecum and patient denies any difficulty in swallowing or nausea or vomiting. Patient is tolerating diet. Patient is currently with a suicide sitter at the bedside and unable to leave AGAINST MEDICAL ADVICE as patient has been evaluated by psychiatry recommending inpatient psychiatric evaluation on the unit once medically stable. Labs within normal limits and vital signs are stable. Will have physical therapy evaluate the patient as patient is extremely weak and lethargic at this time. Recommend follow-up labs with possible [facility] in 24 hours. The impression and plan of care has been dictated by Hailee Dale, nurse practitioner as directed. Dr. Shanel WALTER I have performed a history and examination and MDM of this patient, discussed the same with the dictator, and agree with the dictator's assessment and plan as written ,documented as a scribe. Based on total visit time, I have performed more than 50% of the visit. Any additional findings or plans will be noted. Objective - Vital Signs Vital signs: Vital Signs Temp 97.7 F 04/11/22 03:51 Pulse 78 04/11/22 03:51 Resp 16 04/11/22 03:51 BP 132/83 04/11/22 03:51 Pulse Ox 96 04/11/22 03:51 FiO2 Intake & Output 04/10/22 04/11/22 04/11/22 18:59 06:59 18:59 Weight 40.823 kg Other: Voiding Method Toilet # Voids 1 - Labs CBC & Chem 7: 04/10/22 08:51 04/10/22 08:51 Labs: Abnormal Lab Results - Last 24 Hours (Table) 04/10/22 Range/Units 10:10 U Benzodiazepines Scrn Positive A (Negative)
[2022-04-12] MEDS: KETOROLAC 15 MG/ML 1 ML VIAL IVP SCH ×3 (05:45→17:15)
[2022-04-12 07:20] LABS: Basophils % (A) 0 %; Eosinophils # (A) 0.2 k/uL (0-0.7); Eosinophils % (A) 2 %; HCT 38.9 % (34.0-46.0); HGB 12.5 gm/dL (11.4-16.0); Lymphocytes # (A) 1.6 k/uL (1.0-4.8); Lymphocytes % (A) 15 %; MCH 30.6 pg (25.0-35.0); MCHC 32.1 g/dL (31.0-37.0); MCV 95.3 fL (80.0-100.0); Mean Platelet Volume 8.2; Monocytes # (A) 0.4 k/uL (0-1.0); Monocytes % (A) 4 %; Neutrophils # (A) 8.2 k/uL (1.3-7.7); Neutrophils % (A) 78 %; Platelet Count 216 k/uL (150-450); RBC 4.08 m/uL (3.80-5.40); RDW 14.8 % (11.5-15.5); WBC 10.5 k/uL (3.8-10.6)
[2022-04-12 07:40] LABS: Calcium 9.1 mg/dL (8.4-10.2); Magnesium 1.7 mg/dL (1.6-2.3); Potassium 3.7 mmol/L (3.5-5.1)
--- NOTE | 2022-04-12 09:55 | XR ---
EXAMINATION TYPE: XR chest 1V DATE OF EXAM: 04/12/2022 COMPARISON: Chest x-ray dated 04/10/2022 HISTORY: Foreign body TECHNIQUE: Single frontal view of the chest is obtained. FINDINGS: There is been interval passage of the coins seen on prior exam Within the midesophagus. No pneumothorax or pleural effusion. No airspace disease. Cardiac mediastina l silhouette is within normal limits. Aorta is dense. IMPRESSION: No foreign body evident within the chest.
--- NOTE | 2022-04-12 09:58 | XR ---
KUB HISTORY: Foreign body Frontal KUB and 2 images submitted. Exam correlated prior exam 08/16/2020 2 coins are present within the abdomen within the bowel. No evident bowel obstruction or pneumoperito neum. Stable probable vascular calcifications within the pelvis. There is a spinal curvature. IMPRESSION: Metallic foreign bodies
[2022-04-12] MEDS: ACETAMINOPHEN TAB 325 MG TAB PO PRN (10:37)
--- NOTE | 2022-04-12 10:40 | P.PN ---
Subjective Progress Note Date: 04/12/22 Principal diagnosis: Esophageal foreign body This is a pleasant 67-year-old female who presented to the emergency department yesterday morning after sustaining a fall and having complaints of back pain. Patient states she did strike her head. She has a past medical history inc luding coronary artery disease, COPD, fibromyalgia, GERD, hyperlipidemia, hypertension chronic back pain and is a current every day smoker. They're currently ruling out possible is stroke. However it was reported that she may have taken several Xanax or Klonopin the night before an attempt for intentional overdose. She had a CT of the brain that showed no acute changes. She had a chest x-ray yesterday morning that showed a rounded metallic foreign body overlying the mid thoracic level correlate for foreign body within the midesophagus airway or possible prior surgery. Gastroenterology was consulted for esophageal foreign body. Later in the afternoon she had a chest CT that did not show any foreign body. This morning she had an abdominal x-ray that showed a metallic density overlying the right iliac bone may represent foreign body within the distal small bowel or cecum. Correlate clinically. Patient denies swallowing any type of metallic object. Her granddaughter is at the bedside and states that there were several pennies on the bed they are unsure if when she fell she was holding pennies and may have swallowed one. The patient denies any difficulty with swallowing, no feeling of anything being stuck in her throat. She has been eating solid foods and drinking liquids without any difficulty. She denies any abdominal pain nausea or vomiting. 04/12/22: Patient seen and examined this a follow-up for possible foreign body. She continues to deny any difficulty with swallowing, chest pain, she has been tolerating regular diet. She does state that she has some lower abdominal pain, however no nausea or vomiting. States bowel movements have been normal. Repeat abdominal and chest x-ray done this morning. Chest x-ray shows no foreign body evident within the chest. Abdominal x-ray shows two planes present within the abdomen within the bowel. No evidence of bowel obstruction or pneumoperitoneum. Objective - Vital Signs Vital signs: Vital Signs Temp 98.3 F 04/12/22 08:10 Pulse 95 04/12/22 08:10 Resp 15 04/12/22 08:10 BP 158/89 04/12/22 08:10 Pulse Ox 95 04/12/22 08:10 FiO2 Intake & Output 04/11/22 04/12/22 04/12/22 18:59 06:59 18:59 Intake Total 200 118 Balance 200 118 Weight 40.823 kg Intake: Oral 200 118 Other: Voiding Method Toilet # Voids 1 1 - Exam General appearance: The patient is alert, oriented, appears in no acute distress. HET: Head is normocephalic and atraumatic. Conjunctiva pink. Sclera anicteric. Neck: Supple without lymphadenopathy. Abdomen: Soft, mild lower abdominal tenderness to palpation, nondistended with bowel sounds. No guarding or rigidity. Extremities: Normal skin color and turgor. No pedal edema Skin: No rashes, no jaundice Neurological: No focal deficits. Alert and oriented x3. - Labs CBC & Chem 7: 04/12/22 07:07 04/12/22 07:07 Labs: Abnormal Lab Results - Last 24 Hours (Table) 04/12/22 04/12/22 Range/Units 07:07 07:07 Neutrophils # 8.2 H (1.3-7.7) k/uL Chloride 108 H (98-107) mmol/L BUN 43 H (7-17) mg/dL Glucose 124 H (74-99) mg/dL Assessment and Plan (1) Esophageal foreign body Narrative/Plan: This 67-year-old female who presented to the emergency department yesterday morning after sustaining a fall. It was later found that she had attempted intentional overdose with Xanax and also was told that she had swallowed marlyn or pennies. Patient denies any knowledge or remembering swallowing any complaints. However she did have a chest x-ray that showed metallics esophageal foreign body, later that day she had a chest computed tomography scan that showed no foreign body and this morning underwent abdominal x-ray showing the metallic foreign body had moved small bowel or cecum. The patient is denying any difficulty with swallowing no difficulty with breathing, she is eating a regular diet and swelling without any problems. There is no indication for any endoscopic procedures at this time as the optic seems to have passed the airway. Continue to monitor. Continue Protonix daily. Repeat x-ray showed no foreign body within the chest is repeat chest x-ray shows no foreign body within the chest. Patient without any complaints. She is tolerating solid foods and liquids without any difficulty. Current Visit: Yes Status: Acute Code(s): T18.108A - UNSP FOREIGN BODY IN ESOPHAGUS CAUSING OTH INJURY, INIT SNOMED Code(s): 27160622 (2) Fall Current Visit: Yes Status: Acute Code(s): W19.XXXA - UNSPECIFIED FALL, INITIAL ENCOUNTER SNOMED Code(s): 8917673 (3) Intentional drug overdose Current Visit: Yes Status: Acute Code(s): T50.902A - POISONING BY UNSP DRUG/MEDS/BIOL SUBST, SELF-HARM, INIT SNOMED Code(s): 7427553116 Plan: 1. Continue symptomatic and supportive care 2. Protonix 40 mg daily 3. There is no indication for endoscopic evaluation at this time, appears deformed body has passed the airway/esophagus. 4. Diet as tolerated 5. The patient is cleared for discharge from gastroenterology Thank you for this consultation, we will sign off at this time. Dr. Jenny Cornelius I agree with the dictator's note, documented as a scribe by Linette Appiah.
--- NOTE | 2022-04-12 11:26 | P.PN ---
Subjective Progress Note Date: 04/11/22 Patient was seen for a follow-up. Patient denies headache. No dizziness. Patient complains of pain in the right lower quadrant in the back, radiating 9/10. She has some sharp pain in the leg pointing to the right side. Patient's speech and language functions have improved. No slurring. Her level of alertness also improved. No new complaints. Objective - Vital Signs Vital signs: Vital Signs Temp 97.8 F 04/11/22 12:00 Pulse 73 04/11/22 12:00 Resp 18 04/11/22 14:48 BP 113/70 04/11/22 12:00 Pulse Ox 94 L 04/11/22 12:00 FiO2 Intake & Output 04/10/22 04/11/22 04/11/22 18:59 06:59 18:59 Weight 40.823 kg 40.823 kg Other: Voiding Method Toilet Toilet # Voids 1 1 - Exam Patient is alert and awake. She knows it is March and the year is 2021 and that she is in [facility] in [facility]. Speech and language functions are normal. No aphasia. Her strength appears normal, with decreased endurance. Sensations equal. No ataxia. - Labs CBC & Chem 7: 04/12/22 07:07 04/12/22 07:07 Labs: Abnormal Lab Results - Last 24 Hours (Table) 04/10/22 Range/Units 10:10 U Benzodiazepines Scrn Positive A (Negative) Assessment and Plan Assessment: * Intentional prescription drug overdose. Patient states that she took Xanax overdose. Electronic records mentions about Klonopin. Need to check with the pharmacy what prescription she has been taking. * Intentional ingestion of pennies (at least 2). Pennies passing through, now down to the cecal level. * Slurred speech, possibly because of drug overdose. Examination is otherwise nonfocal. Doubt central ischemia. * Lower thoracic back pain, no evidence of compression fracture. Patient does have chronic low back pain. * Akbar. depression * Tobacco use Plan: * Urine drug screen positive for benzodiazepine. * X-ray of the thoracic spine showed no acute osseous pathology. Mild multilevel disc degeneration changes with scoliosis. * Carotid Doppler revealed less than 50% stenosis in both ICA. Bilateral plaque formation. Antegrade flow in both vertebral arteries. * EEG was abnormal due to presence of mixed fast frequencies and some slow frequency activity seen in bihemispheric region. This is suggestive of generalized cerebral dysfunction as can be seen with encephalopathy or related to medication effect. No epileptiform activity was seen. * Patient's mentation is normal, speech normal. No other neurological workup in dicated. * Check B12, folate. * Neurologically clear for transfer to mental health unit.
[2022-04-12 16:47] VITALS: BP 173/96; PULSE 89; RESP 16; TEMP 97.9
[2022-04-12] MEDS ORDERED: BUTALB/APAP/CAFF 50-325-40MG TAB PO PRN (18:23)
--- NOTE | 2022-04-12 18:39 | P.DS ---
Providers Date of admission: 04/10/22 10:19 Attending physician: Ella Ugarte Consults: 04/10/22 10:20 Consult Physician Urgent Consulting Provider: Lalitha Thorpe Consult Reason/Comments: Slurred speech, questionable syncope Do you want consulting provider notified?: Yes 04/10/22 12:51 Consult Physician Urgent Consulting Provider: Zion Rey Consult Reason/Comments: depression, has attempted OD in past, clonopin Do you want consulting provider notified?: Yes 04/11/22 08:01 Consult Physician Urgent Consulting Provider: Charla Cornelius Consult Reason/Comments: esophageal foreign body Do you want consulting provider notified?: Yes Primary care physician: Stated None Hospital Course: Diagnoses Fall with possible overdose on benzodiazepines Slurred speech, most likely benzo effect. CT brain was negative. Back to normal Ingestion of foreign metal object, possibly pennies, with x-rays showing passing into the cecum COPD, not in exacerbation Fibromyalgia Gastroesophageal reflux disease Hyperlipidemia Hypertension Unsteady gait and more frequent falls at home Chronic back pain Depression with suicidal ideation Hospital course: This is a 67-year-old female who was recently brought to the emergency department via EMS following a fall and patient was apparently found in the room and family had to force the door open his patient was unconscious and brought here for further evaluation . Patient has some slurred speech and altered mental status secondary to benzodiazepine overdose, patient mentation back to normal and she remained hemodynamically stable. She's been evaluated by neurologist and her EEG was negative for epileptiform discharge and CT of the brain is negative for acute process. Neurology the patient was cleared to be transferred to mental health unit. Also patient with evidence of injection of points, the chest x-ray and examination showing passing of coins from the esophagus down to the intestine, 2 cores found on the KUB today. Patient is as symptomatic. No abdominal pain or distention and she tolerates diet well, she finished almost all of her breakfast this morning around. She had a bowel movement. Urine analysis was negative. She is hemodynamically stable. Labs normal and stable. Patient was cleared to be transferred and discharge from the medical floor by both GI and neurology services. Patient will need to be transferred to mental health unit for psychiatrist evaluation for suicidal ideation. Patient agreeable with the plan Patient denies any chest pain or dyspnea. No headache or weakness or numbness. No urinary complaints. No fever. Problems and management plan were discussed with the patient and he verbalized understanding and acceptance Patient was found stable and can be discharged to mental health unit in guarded prognosis however he needs follow-up as an outpatient. Patient was instructed to follow up with PCP within one week and patient agrees Physical exam Gen: patient is a AAOx3, no distress CVS: S1-S2, RRR, no murmur Lungs: B/L CTA, no wheezing Abdomen: soft, no distention, no tenderness, positive bowel sounds Extremity: no leg edema or induration Time spent more than 35 minutes Plan - Discharge Summary Discharge Rx Participant: No New Discharge Prescriptions: No Action No Known Home Medications Discharge Medication List No Known Home Medications 04/10/22 [History]
--- NOTE | 2022-04-12 22:38 | P.PN ---
Subjective Progress Note Date: 04/12/22 Patient was seen for a follow-up. Patient complaining of headache. Denies any history of migraines. Denies excessive caffeine intake. No dizziness. Patient's speech and language functions have improved. No slurring. Her level of alertness also improved. No new complaints. Objective - Vital Signs Vital signs: Vital Signs Temp 97.9 F 04/12/22 16:41 Pulse 89 04/12/22 16:41 Resp 16 04/12/22 16:41 BP 173/96 04/12/22 16:41 Pulse Ox 98 04/12/22 16:41 FiO2 Intake & Output 04/12/22 04/12/22 04/13/22 06:59 18:59 06:59 Intake Total 118 Balance 118 Intake: Oral 118 Other: # Voids 1 2 - Exam Patient is alert and awake. She knows it is March and the year is 2021 and that she is in [facility] in [facility]. Speech and language functions are normal. No aphasia. Her strength appears normal, with decreased endurance. Sensations equal. No ataxia. - Labs CBC & Chem 7: 04/12/22 07:07 04/12/22 07:07 Labs: Abnormal Lab Results - Last 24 Hours (Table) 04/10/22 04/12/22 04/12/22 Range/Units 08:51 07:07 07:07 Neutrophils # 8.2 H (1.3-7.7) k/uL Chloride 108 H (98-107) mmol/L BUN 43 H (7-17) mg/dL Glucose 124 H (74-99) mg/dL Folate (4.40-31.00) ng/mL Clonazepam <10 L (15-60) ng/mL 04/12/22 Range/Units 07:07 Neutrophils # (1.3-7.7) k/uL Chloride (98-107) mmol/L BUN (7-17) mg/dL Glucose (74-99) mg/dL Folate 2.40 L (4.40-31.00) ng/mL Clonazepam (15-60) ng/mL Assessment and Plan Assessment: * Intentional prescription drug overdose. Patient states that she took Xanax overdose. Electronic records mentions about Klonopin. Need to check with the pharmacy what prescription she has been taking. * Intentional ingestion of pennies (x2). Pennies passing through, now down to the cecal level. * Slurred speech, possibly because of drug overdose. Slurring now completely resolved. * Lower thoracic back pain, no evidence of compression fracture. Patient does have chronic low back pain. * Akbar. depression * Tobacco use Plan: * Fioricet as needed for headache. * Urine drug screen positive for benzodiazepine. * X-ray of the thoracic spine showed no acute osseous pathology. Mild multilevel disc degeneration changes with scoliosis. * Carotid Doppler revealed less than 50% stenosis in both ICA. Bilateral plaque formation. Antegrade flow in both vertebral arteries. * EEG was abnormal due to presence of mixed fast frequencies and some slow frequency activity seen in bihemispheric region. This is suggestive of generalized cerebral dysfunction as can be seen with encephalopathy or related to medication effect. No epileptiform activity was seen. * Patient's mentation is normal, speech normal. No other neurological workup indicated. * B12 459, folate 2.40. Recommend folate replacement. * Neurologically clear for transfer to mental health unit.
== END 2022-04-12 18:30 | DRG 918 ==
LOC: EC 08:04 → 3SCARD 10:19
PROVIDERS: ADMIT Internal Medicine; ATTEND Internal Medicine
DX: T42.4X2A Poisoning by benzodiazepines, intentional self-harm, initial encounter (principal); R47.81 Slurred speech; T18.198A Other foreign object in esophagus causing other injury, initial encounter; E78.5 Hyperlipidemia, unspecified; F32.A Depression, unspecified; G89.29 Other chronic pain; I10 Essential (primary) hypertension; I25.10 Atherosclerotic heart disease of native coronary artery without angina pectoris; F17.210 Nicotine dependence, cigarettes, uncomplicated; J44.9 Chronic obstructive pulmonary disease, unspecified; K21.9 Gastro-esophageal reflux disease without esophagitis; M41.9 Scoliosis, unspecified; M79.7 Fibromyalgia; M81.0 Age-related osteoporosis without current pathological fracture; R29.6 Repeated falls; Z63.4 Disappearance and death of family member; Z79.82 Long term (current) use of aspirin; Z79.890 Hormone replacement therapy; Z83.2 Family history of diseases of the blood and blood-forming organs and certain disorders involving the immune mechanism; Z91.51 Personal history of suicidal behavior; Z56.0 Unemployment, unspecified; Z28.310 Unvaccinated for COVID-19; Z28.21 Immunization not carried out because of patient refusal; R26.81 Unsteadiness on feet; Z91.81 History of falling; Z88.6 Allergy status to analgesic agent; Z91.041 Radiographic dye allergy status
CPT/HCPCS: 36415; 70450; 71045; 71046; 71250; 72072; 72100; 74018; 80048; 80053; 80306; 80320; 80346; 81003; 82550; 82607; 82746; 83605; 83735; 84484; 85025; 85610; 85730; 93005; 93880; 95819; 96374; 99285

== ENCOUNTER 2022-04-12 18:10 | Inpatient (IN) | payer MEDICARE ==
[2022-04-12] MEDS ORDERED: MAGNESIUM HYDROXIDE 2,400 MG/10 ML CUP PO PRN (18:19)
[2022-04-12] MEDS ORDERED: HALOPERIDOL LACTATE 5 MG/ML 1 ML VIAL IM PRN (18:19)
[2022-04-12] MEDS ORDERED: LORazepam 1 MG TAB PO PRN (18:19)
[2022-04-12] MEDS ORDERED: MAG HYDROX/AL HYDROX/SIMETH 30 ML CUP PO PRN (18:19)
[2022-04-12] MEDS ORDERED: LORazepam 1 MG/0.5 ML VIAL IM PRN (18:23)
[2022-04-12] MEDS: BUTALB/APAP/CAFF 50-325-40MG TAB PO PRN (20:25)
[2022-04-13] MEDS: BUTALB/APAP/CAFF 50-325-40MG TAB PO PRN ×4 (04:22→15:42)
[2022-04-13] MEDS: NICOTINE 14MG/24HR PATCH TRANSDERM SCH (08:58)
[2022-04-13] MEDS: FOLIC ACID 1 MG TAB PO SCH (08:58)
[2022-04-13 14:51] VITALS: BMI 16.9
[2022-04-13] MEDS ORDERED: METOPROLOL TARTRATE 25 MG TAB PO SCH (15:58)
[2022-04-13] MEDS ORDERED: hydrALAZINE HCL 25 MG TAB PO PRN (16:02)
[2022-04-13] MEDS ORDERED: traMADol 50 MG TAB PO STA (16:03)
[2022-04-13] MEDS: cloNIDine HCL 0.1 MG TAB PO SCH ×2 (16:13→20:28)
[2022-04-13] MEDS ORDERED: SERTRALINE 25 MG TAB PO SCH (18:00)
--- NOTE | 2022-04-13 19:11 | P.CONS ---
History of Present Illness - History of Present Illness This is a pleasant 67 years old female who was known to my service as she was discharged yesterday from general medical floor to the mental health unit after she is been found medically stable and cleared by other consultants involved within urology and GI teams. She was admitted to the medical floor after overdose with benzodiazepine with intention to killing Herself. She has been evaluated by GI and neurology service and workup was negative, please refer to discharge summary from yesterday for more details. Patient started tolerating diet well, abdomen was soft and she has regular bowel movement therefore she was cleared for discharge by GI team and today she is choco erating that well as well X-ray of the chest showed no coins while abdominal x-ray yesterday showed 2 coins indicating passage down into the small intestine and cecum per GI team input. Abdomen remained soft today. No vomiting. No chest pain or dyspnea. No dizziness or headache or weakness or numbness. Blood pressure was elevated 178/100 and heart rate 117 and therefore she was started on Catapres with holding parameters. Also she was complaining of from headache and Withams as provided Review of Systems Review of systems CONSTITUTIONAL: No fever, no malaise, no fatigue. HEENT: No recent visual problems or hearing problems. Denied any sore throat. CARDIOVASCULAR: No orthopnea, PND, no palpitations, no syncope. PULMONARY: No shortness of breath, no cough, no hemoptysis. GASTROINTESTINAL: No diarrhea, no nausea, no vomiting, no abdominal pain. Normoactive bowel sounds. NEUROLOGICAL: No headaches, no weakness, no numbness. HEMATOLOGICAL: Denies any bleeding or petechiae. GENITOURINARY: Denies any burning micturition, frequency, or urgency. MUSCULOSKELETAL/RHEUMATOLOGICAL: Denies any joint pain, swelling, or any muscle pain. ENDOCRINE: Denies any polyuria or polydipsia. Past Medical History Past Medical History: Coronary Artery Disease (CAD), Chest Pain / Angina, COPD, Fibromyalgia, GERD/Reflux, Hyperlipidemia, Hypertension, Pneumonia Additional Past Medical History / Comment(s): Chronic back pain, DDD, bulging discs, scoliosis, osteoporosis. History of Any Multi-Drug Resistant Organisms: None Reported Past Surgical History: Back Surgery, Breast Surgery, Heart Catheterization With Stent, Hysterectomy, Orthopedic Surgery Additional Past Surgical History / Comment(s): Back injections, L patellar surgery, R carpal tunnel release, L breast benign biopsy, sinus surgery, EGD Past Anesthesia/Blood Transfusion Reactions: No Reported Reaction Date of Last Stent Placement:: 05/10/20 Smoking Status: Current every day smoker - Past Family History Mother Family Medical History: Cancer Additional Family Medical History / Comment(s): Mother had lupus and TB Father History Unknown: Yes Medications and Allergies Home Medications Medication Instructions Recorded Confirmed Type No Known Home Medications 04/10/22 04/12/22 History Allergies Allergy/AdvReac Type Severity Reaction Status Date / Time ibuprofen AdvReac NIGHTMARES Verified 04/12/22 20:17 Iodinated Contrast Media AdvReac Nausea & Verified 04/12/22 20:17 [Iodinated Contrast Media - Vomiting IV Dye] povidone-iodine AdvReac Nausea & Verified 04/12/22 20:17 [From Betadine] Vomiting soap [From Betadine] AdvReac Nausea & Verified 04/12/22 20:17 Vomiting Physical Exam Vitals: Vital Signs Temp Pulse Resp BP 04/13/22 04:30 98.1 F 119 H 14 139/82 04/12/22 20:25 98.3 F 64 15 121/80 Intake and Output 04/12/22 04/13/22 04/13/22 22:59 06:59 14:59 Other: Weight 40.82 kg GENERAL: The patient is alert and oriented x3, not in any acute distress. Well developed, well nourished. HEENT: Pupils are round and equally reacting to light. EOMI. No scleral icterus. No conjunctival pallor. Normocephalic, atraumatic. No pharyngeal erythema. No thyromegaly. CARDIOVASCULAR: S1 and S2 present. No murmurs, rubs, or gallops. PULMONARY: Chest is clear to auscultation, no wheezing or crackles. ABDOMEN: Soft, nontender, nondistended, normoactive bowel sounds. No palpable organomegaly. MUSCULOSKELETAL: No joint swelling or deformity. EXTREMITIES: No cyanosis, clubbing, or pedal edema. NEUROLOGICAL: Gross neurological examination did not reveal any focal deficits. SKIN: No rashes. no petechiae. Assessment and Plan Assessment: Depression with suicidal ideation hypertension and tachycardia could be secondary to withdrawal symptoms for ex ample benzodiazepine withdrawal Recent history of Fall with possible overdose on benzodiazepines. Recommended subacute rehab and home health care upon discharge Ingestion of foreign metal object, possibly pennies, with x-rays showing passing into the cecum. pt is cleared by GI team. Follow-up as an outpatient Slurred speech, most likely benzo effect. CT brain was negative. Back to normal. Mentation is normal COPD, not in exacerbation Fibromyalgia Gastroesophageal reflux disease Hyperlipidemia Hypertension Unsteady gait and more frequent falls at home Chronic back pain Plan: This is a pleasant 67 years old female who presents to the mental health unit for depression Continuous psych primary team treatment for her cycle illnesses Continue with supportive treatment. Start patient on Catapres 0.1 mg twice a day, she was before on Catapres with Dr. Orellana when she is to see him. Also start hydralazine when necessary Patient tolerates diet well We Recommend physical therapy We recommend patient follow up with PCP in one week after discharge and patient was instructed with the same Prognosis is guarded Thank you for consulting us
[2022-04-13] MEDS ORDERED: traZODone HCL 50 MG TAB PO SCH (21:00)
[2022-04-14] MEDS: BUTALB/APAP/CAFF 50-325-40MG TAB PO PRN ×2 (05:19→13:27)
[2022-04-14] MEDS: NICOTINE 14MG/24HR PATCH TRANSDERM SCH (08:53)
[2022-04-14] MEDS: SERTRALINE 50 MG TAB PO SCH (08:53)
[2022-04-14] MEDS: FOLIC ACID 1 MG TAB PO SCH (08:53)
[2022-04-14] MEDS: cloNIDine HCL 0.1 MG TAB PO SCH ×2 (08:53→20:44)
--- NOTE | 2022-04-14 17:14 | XR ---
EXAMINATION TYPE: XR KUB portable DATE OF EXAM: 04/14/2022 COMPARISON: NONE HISTORY: No bowel movement for 5 days TECHNIQUE: Single view FINDINGS: There is no evidence of free air. No evidence of abdominal mass. No pathologic calcificatio ns over the kidneys. There are rounded metallic densities over the abdomen that could be ingested for eign bodies. There is some retained fecal material in the large bowel. IMPRESSION: There is evidence for some constipation similar to recent exam. Intestinal foreign bodies .
--- NOTE | 2022-04-14 17:26 | P.HP ---
Psychiatric H&P - . H&P Date: 04/13/22 History & Physical: IDENTIFYING DATA: Patient is a 67-year-old female currently lives with her sister, is and is unemployed. HPI: Patient presented to the hospital and was admitted to the hospital following suicide attempt by intentional overdose on Xanax. Per psychiatry consult by Dr. Rey "The patient presented to the hospital after having a fall in the bathroom and apparently hit her face. Patient apparently has a history of depression and overdose in the past. Patient apparently had swallowed pennies along with Xanax approximately 20 of them in a suicide attempt before h aving a fall. Patient Apparently has been off medications and been dealing with depression for the past 3 or 4 years. Patient apparently has stressors including her dying and "wanting to be with him" and also brother committing suicide 2 years ago. She states that she is also been having poor sleep approximately 4 hours a day for appetite. Patient was fairly lethargic and dysarthric in her speech. She was difficult to redirect in conversation. She states that she's been having poor appetite. She claims that she is "tired of being in pain" and also stated "I want to be with my ". Ict Project Manager spoke with patient's daughter and granddaughter who states that patient did overdose in a suicide attempt and frequently makes threats of suicide and also depression at home.. At this time patient denies any homical ideations, intent or plan. However patient does claim that she is still feeling suicidal however no intent or plan. Patient denies any auditory, visual hallucinations and denies any paranoia or delusions. Patients admits to using cigarettes only." She reports she wants to be with her hsubacatrina who 2 years ago, were for 46 years, met when they were 19 and 20. "He was my life" and she misses him very much. She reports her middle daughter is living with her levi rented house, but the daughter is an alcoholic and very mean, and so patient will be moving out to live with her youngest daughter after discharge. She reports depressed mood, sleep is poor "I toss and turn all night long", interest in her grandchildren but not much else, endorse guilty feelings ("should've been a better Mom"), low energy, fair concentration, fair appetite (gets Meals on Wheels, but daughter eats them sometimes), psychomotor slowing. At this time, kaitlynn villalba denies any active suicidal or homicidal ideations intent or plan. She denies any auditory or visual hallucinations. She endorses worrying "24/7", global worrying is difficult to control, feeling restless, easily tired, low energy and concentration. PAST PSYCHIATRIC HISTORY: Patient states she has a history of depression, anxiety. Patient denies currently being on any psychiatric medications. In the past, she has tried antidepressants in the past but cannot recall which ones. Previous psychiatric hospitalizations: [facility] many (more than 15) years ago. Patient denies any psychiatric outpatient follow-up. Past suicide attempts: Two times including this one. PMH: Chest Pain / Angina, COPD, Fibromyalgia, GERD/Reflux, Hyperlipidemia, Hypertension Additional Past Medical History / Comment(s): bulging disc back, scolosis, degenerative bone disease, curvature of spine ALLERGIES: as per EMR CHEMICAL DEPENDENCY HISTORY: She denies alcohol use or drug use. She smokes 0.5 ppd. She is interested in quitting. FAMILY PSYCHIATRIC/SUBSTANCE USE HISTORY: Claims that her brother committed suicide and her middle child is an "alcoholic, with ADHD and Bipolar". SOCIAL HISTORY: Patient was born and raised in [facility]. She states that she completed up to 11th grade in school. She was in special education, could not read, write, or spell until she met her . 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 She is , has 3 adult children. She was living with one of her daughters who is an "alcoholic" and after discharge will be going to live with another daughter. MENTAL STATUS EXAM: General Appearance: Patient appears to be older than stated age, is edentulous, appears underweight. Orientation: Alert, oriented to person, place, time and situation. Behavior: Patient is seated without any agitated behavior. Speech: Patient's speech is fluent and nonpressured. Mood/Affect: Patient reports their mood is depressed, affect is congruent and constricted. Suicidality/Homicidality: Patient denies having any homicidal ideation intent or plan. Patient denies any active suicidal ideations intent or plan today. Perceptions: Patient denies any visual hallucinations and denies any auditory hallucinations. Though content/process: There is no evidence of any delusional thought content and thought process is linear and goal-directed. Memory and concentration: Grossly intact for the purposes of this session. Can spell "WORLD" backwards. Judgment and insight: Fair STRENGTHS/WEAKNESSES: strength is that patient is resilient. Weakness is that patient has poor judgment and is impulsive. INTELLECT: Average IMPRESSIONS: Major depressive disorder, without psychotic features Overdose on medications Nicotine dependence PLAN: -Patient is admitted under voluntary status to MHU for stabilization of psychiatric symptoms and safety. Patient has signed adult voluntary form and medication consent and is placed in patient's chart. -Medications: Will start patient on Trazodone 50 mg QHS for depression/sleep. Will start patient on Zoloft 25 mg daily starting today and increase to 50 mg daily starting tomorrow morning for depression and anxiety. -Ativan and Haldol PRN for agitation/aggression -Patient was informed of the risks, benefits and side effects of the medication and patient verbally consented to taking the medications. Patient signed med consent form and was placed in chart. -Internal Medicine consult to perform medical evaluation and physical. -NRT - nicotine patch -SW on board for discharge planning. Encourage patient to participate in groups to work on coping skills. [] Allergies Allergy/AdvReac Type Severity Reaction Status Date / Time ibuprofen AdvReac NIGHTMARES Verified 04/12/22 20:17 Iodinated Contrast Media AdvReac Nausea & Verified 04/12/22 20:17 [Iodinated Contrast Media - Vomiting IV Dye] povidone-iodine AdvReac Nausea & Verified 04/12/22 20:17 [From Betadine] Vomiting soap [From Betadine] AdvReac Nausea & Verified 04/12/22 20:17 Vomiting Vital Signs Temp 98.1 F 04/13/22 04:30 Pulse 117 H 04/13/22 15:44 Resp 14 04/13/22 04:30 BP 178/100 04/13/22 15:44 Pulse Ox FiO2 Intake & Output 04/12/22 04/13/22 04/13/22 18:59 06:59 18:59 Weight 40.82 kg 40.82 kg 40.82 kg 04/13/22 17:25 04/13/22 17:27
--- NOTE | 2022-04-14 17:46 | P.PN ---
Progress Note - Text Progress Note Date: 04/14/22 Interval History: Patient was seen attending groups, and was directable and agreeable to speak with fiction writer in the office. She complains of left lower quadrant abdominal pain, the medical doctor saw her earlier, ordered an abdominal Xray that show the pennies moving down the GI tract. She was started on stool softener to help her pass the pennies. She reports she hardly slept last night due to abdominal pain. At this time patient denies any suicidal or homical ideations, intent or plan. Patient denies any auditory, visual hallucinations, and denies any paranoia or delusions. Patient denies any side effects from the medications and has been compliant with meds. Mental Status Exam: General Appearance: Patient appears to be stated age is alert, underweight, short hair. Orientation: Alert, oriented to person, place, time and situation. Behavior: Patient is calmly seated without any agitated behavior. Walks with awkward gait due to abdominal pain - she was seen by the medical doctor. Speech: Patient's speech is fluent and nonpressured. Mood/Affect: Mood is improving mildly, affect is congruent and constricted. Suicidality/Homicidality: Patient denies having any suicidal or homicidal ideation intent or plan. Perceptions: Patient denies any visual hallucinations and denies any auditory hallucinations. Though content/process: There is no evidence of any delusional thought content, and thought process is linear and goal-directed. Memory and concentration: Grossly intact for the purposes of this session. Judgment and insight: Improving mildly Assessment Major depressive disorder, recurrent, severe without psychotic features Suicide attempt via overdose on medication and pennies Tobacco use disorder Plan: -Patient is admitted under voluntary status to [facility] for stabilization of psychiatric symptoms and safety. Patient has signed adult voluntary form and medication consent and is placed in patient's chart. -Medications: Increase Trazodone to 100 mg QHS for depression/sleep. Zoloft was increased to 50 mg daily this morning for depression and anxiety, will continue at this dose for now with plan to increase as tolerated. Medical doctor is following patient's abdominal pain. -Ativan and Haldol PRN for agitation/aggression -Patient was informed of the risks, benefits and side effects of the medication and patient verbally consented to taking the medications. Patient signed med consent form and was placed in chart. -NRT - nicotine patch -SW on board for discharge planning. Encourage patient to participate in groups to work on coping skills.
[2022-04-14] MEDS ORDERED: traZODone HCL 50 MG TAB PO SCH (21:00)
[2022-04-15] MEDS: ACETAMINOPHEN TAB 325 MG TAB PO PRN ×2 (06:37→11:55)
[2022-04-15] MEDS: NICOTINE 14MG/24HR PATCH TRANSDERM SCH (09:06)
[2022-04-15] MEDS: FOLIC ACID 1 MG TAB PO SCH (09:07)
[2022-04-15] MEDS: SERTRALINE 50 MG TAB PO SCH (09:07)
[2022-04-15] MEDS: cloNIDine HCL 0.1 MG TAB PO SCH (09:07)
--- NOTE | 2022-04-15 10:14 | P.PN ---
Progress Note - Text Progress Note Date: 04/15/22 Interval History: Patient was seen laying in bed today and was directable and agreeable to speak with sports writer in the office. Patient appeared to be somewhat lethargic today and was attempting to hold herself up with the stout as walked. She claims that she is feeling dizzyand sstates that her blood pressure is "too low". Patient claims that her anxiety is still high and still reports depression. She continues to make comments about wanting to "be with my ". She states that she is havingn fleeting thoughts of suicide at this time and claims that she doesnt feel safe if she were to go home. She continues to claim that she has back pain. She claims that she slept well last night. fair appetite. At this time patient denies any homical ideations, intent or plan. Patient denies any auditory, visual hallucinations, and denies any paranoia or delusions. Patient denies any side effects from the medications and has been compliant with meds. Mental Status Exam: General Appearance: Patient appears to be stated age is alert, underweight, short hair. Behavior: Patient is calmly seated without any agitated behavior. Walks with awkward gait, grabbing onto the stout. Speech: Patient's speech is fluent and nonpressured. concrete Mood/Affect: Mood is depressed and anxious, improving mildly, affect is congruent and constricted. Suicidality/Homicidality: Patient denies having any suicidal or homicidal ideation intent or plan. Perceptions: Patient denies any visual hallucinations and denies any auditory hallucinations. Though content/process: There is no evidence of any delusional thought content, and thought process is linear and goal-directed. concrete. Memory and concentration: Grossly intact for the purposes of this session. Judgment and insight: Improving mildly Assessment Major depressive disorder, recurrent, severe without psychotic features Suicide attempt via overdose on medication and pennies Tobacco use disorder Plan: -Patient is admitted under voluntary status to [facility] for stabilization of psychiatric symptoms and safety. Patient has signed adult voluntary form and medication consent and is placed in patient's chart. -Medications: Decrease Trazodone to 75 mg QHS for depression/sleep. Zoloft was increased to 75 mg daily this morning for depression and anxiety. -Ativan and Haldol PRN for agitation/aggression -Patient was informed of the risks, benefits and side effects of the medication and patient verbally consented to taking the medications. Patient signed med consent form and was placed in chart. -NRT - nicotine patch -SW on board for discharge planning. Encourage patient to participate in groups to work on coping skills. likely discharge in 1-2 days home with youngest daughter.
[2022-04-15] MEDS: DOCUSATE 100 MG CAP PO PRN (16:10)
[2022-04-15] MEDS: SODIUM CHLORIDE TAB 1 GM TAB PO SCH (20:08)
[2022-04-15 20:10] VITALS: RESP 16
[2022-04-15] MEDS ORDERED: traZODone HCL 50 MG TAB PO SCH (21:00)
[2022-04-16] MEDS: BUTALB/APAP/CAFF 50-325-40MG TAB PO PRN ×3 (03:54→16:01)
[2022-04-16] MEDS: SERTRALINE 50 MG TAB PO SCH (08:07)
[2022-04-16] MEDS: NICOTINE 14MG/24HR PATCH TRANSDERM SCH (08:07)
[2022-04-16] MEDS: FOLIC ACID 1 MG TAB PO SCH (08:08)
[2022-04-16] MEDS: SODIUM CHLORIDE TAB 1 GM TAB PO SCH ×3 (08:09→20:07)
--- NOTE | 2022-04-16 09:19 | P.PN ---
Progress Note - Text Progress Note Date: 04/16/22 Interval History: Patient was seen laying in bed today and was directable and agreeable to speak with comic writer in the office. Patient appears to be more awake today and an improvement in her affect. She claims that she is feeling less depressed today and denying any anxiety. She states that she feels medications are helping her. She also claims that her blood pressure has been improving and she feels less dizzy in the mornings. She states that she was able to sleep after several hours of trying to go to sleep due to the decrease in trazodone. She is requesting to have it increased. She states that she is "hopeful for the future" and spoke about her granddaughters and also her reasons to live. She states that "God doesn't want me to go yet". fair appetite. At this time patient denies any homical ideations, intent or plan. Patient denies any auditory, visual hallucinations, and denies any paranoia or delusions. Patient denies any side effects from the medications and has been compliant with meds. Mental Status Exam: General Appearance: Patient appears to be stated age is alert, underweight, short hair Behavior: Patient is calmly seated without any agitated behavior Speech: Patient's speech is fluent and nonpressured. concrete Mood/Affect: Mood is improving mildly, affect is congruent Suicidality/Homicidality: Patient denies having any suicidal or homicidal ideation intent or plan. Perceptions: Patient denies any visual hallucinations and denies any auditory hallucinations. Though content/process: There is no evidence of any delusional thought content, and thought process is linear and goal-directed Memory and concentration: Grossly intact for the purposes of this session. Judgment and insight: Improving mildly Assessment Major depressive disorder, recurrent, severe without psychotic features Suicide attempt via overdose on medication and pennies Tobacco use disorder Plan: -Patient is admitted under voluntary status to [facility] for stabilization of psychiatric symptoms and safety. Patient has signed adult voluntary form and medication consent and is placed in patient's chart. -Medications: increase Trazodone to 100 mg QHS for depression/sleep. continue Zoloft 75 mg daily for depression and anxiety. added melatonin 3 mg qhs insomnia. -Ativan and Haldol PRN for agitation/aggression -Patient was informed of the risks, benefits and side effects of the medication and patient verbally consented to taking the medications. Patient signed med consent form and was placed in chart. -NRT - nicotine patch -SW on board for discharge planning. Encourage patient to participate in groups to work on coping skills. likely discharge tomorrow to [facility]. SW to call today to make arrangements for dc planning.
[2022-04-16] MEDS: DOCUSATE 100 MG CAP PO PRN (10:09)
[2022-04-16] MEDS: MONTELUKAST 10 MG TAB PO SCH ×2 (12:08→20:07)
[2022-04-16] MEDS ORDERED: traZODone HCL 100 MG TAB PO SCH (21:00)
[2022-04-16] MEDS ORDERED: MELATONIN 3 MG TABLET PO SCH (21:00)
[2022-04-17] MEDS: BUTALB/APAP/CAFF 50-325-40MG TAB PO PRN ×2 (05:33→09:53)
[2022-04-17 06:47] VITALS: BP 112/66; PULSE 101; TEMP 96.9
[2022-04-17] MEDS: FOLIC ACID 1 MG TAB PO SCH (08:01)
[2022-04-17] MEDS: SERTRALINE 50 MG TAB PO SCH (08:01)
[2022-04-17] MEDS: SODIUM CHLORIDE TAB 1 GM TAB PO SCH (08:44)
[2022-04-17] MEDS: NICOTINE 14MG/24HR PATCH TRANSDERM SCH (08:45)
[2022-04-17] MEDS: DOCUSATE 100 MG CAP PO PRN (09:53)
--- NOTE | 2022-04-17 10:20 | P.DS ---
Providers Date of admission: 04/12/22 18:10 Expected date of discharge: 04/17/22 Attending physician: Zion Rey MD Consults: 04/12/22 18:19 Consult Physician Routine Consulting Provider: Ella Ugarte Consult Reason/Comments: medical management Do you want consulting provider notified?: Already Contacted Primary care physician: Stated None - Discharge Diagnosis(es) (1) Major depressive disorder, recurrent severe without psychotic features Current Visit: Yes Status: Acute Priority: High (2) Suicide attempt Current Visit: Yes Status: Acute Priority: High (3) Nicotine dependence Current Visit: Yes Status: Acute Priority: Low Hospital Course: Admission HPI: Admission note was completed by Dr Gage "Patient is a 67-year-old female currently lives with her sister, is and is unemployed. Patient presented to the hospital and was admitted to the hospital following suicide attempt by intentional overdose on Xanax. Per psychiatry consult by Dr. Rey "The patient presented to the hospital after having a fall in the bathroom and apparently hit her face. Patient apparently has a history of depression and overdose in the past. Patient apparently had swallowed pennies along with Xanax approximately 20 of them in a suicide attempt before having a fall. Patient Apparently has been off medications and been dealing with depression for the past 3 or 4 years. Patient apparently has stressors including her dying and "wanting to be with him" and also brother committing suicide 2 years ago. She states that she is also been having poor sleep approximately 4 hours a day for appetite. Patient was fairly lethargic and dysarthric in her speech. She was difficult to redirect in conversation. She states that she's been having poor appetite. She claims that she is "tired of being in pain" and also stated "I want to be with my ". Seasoning Sprayer spoke with patient's daughter and granddaughter who states that patient did overdose in a suicide attempt and frequently makes threats of suicide and also depression at home.. At this time patient denies any homical ideations, intent or plan. However patient does claim that she is still feeling suicidal however no intent or plan. Patient denies any auditory, visual hallucinations and denies any paranoia or delusions. Patients admits to using cigarettes only." She reports she wants to be with her hsuband who 2 years ago, were for 46 years, met when they were 19 and 20. "He was my life" and she misses him very much. She reports her middle daughter is living with her levi rented house, but the daughter is an alcoholic and very mean, and so patient will be moving out to live with her youngest daughter after discharge. She reports depressed mood, sleep is poor "I toss and turn all night long", interest in her grandchildren but not much else, endorse guilty feelings ("should've been a better Mom"), low energy, fair concentration, fair appetite (gets Meals on Wheels, but daughter eats them sometimes), psychomotor slowing. At this time, patient denies any active suicidal or homicidal ideations intent or plan. She denies any auditory or visual hallucinations. She endorses worrying "24/7", global worrying is difficult to control, feeling restless, easily tired, low energy and concentration. " Hospital course: Upon admission to the unit patient was directable and agreeable to commence treatment and signed adult voluntary form. Patient got along well with other patients on the unit and followed unit protocol. Patient was compliant with the medications and denied any side effects throughout hospital course. Patient was started on Zoloft and increased her dose of 75 mg daily for mood/anxiety. Patient was also started on trazodone increased to a dose of 150 mg daily at bedtime for insomnia/mood. Patient was also started on melatonin 6 mg daily at bedtime for sleep. Patient spoke of her stressors and engaged in therapy both group and individual. Patient was also seen by medical team for history and physical exam. Throughout the course of the hospitalization patient gradually improved with regards to mood, anxiety, sleep and became more future oriented with improved insight and judgment. On the day of discharge patient denied any suicidal or homicidal ideations intent or plan denied any auditory or visual hallucinations. Patient endorsed wanting to live for her children, grandchildren and also great grandchildren which are on the way. The patient denied any access to guns or weapons. Patient denied any paranoia and did not endorse any delusions. Patient does not have a significant history of substance abuse and was counseled on abstaining from all substances including alcohol and marijuana. Patient was also counseled on the medications and need for regular compliance and was encouraged to follow-up with their outpatient appointment for mental health and also for primary care. Prior to discharge a family meeting will be arranged by high school social studies teacher to answer any questions and ensure safety upon discharge. Patient will be discharged to her youngest daughter's home today with outpatient follow-up. Mental status exam: General Appearance: Patient appears to be thin, short hair, stated age is alert, pleasant, and cooperative. Patient is in no acute distress and has improved hygiene and grooming Behavior: Patient is calmly seated without any agitated behavior. Speech: Patient's speech is fluent and nonpressured. Mood/Affect: Patient reports their mood is "better", affect is congruent and euthymic. Suicidality/Homicidality: Patient denies having any suicidal or homicidal ideation intent or plan. Perceptions: Patient denies any auditory or visual hallucinations. Though content/process: There is no evidence of any delusional thought content and thought process is linear and goal-directed. more future oriented Memory and concentration: AOX3, grossly intact for the purposes of this session. Can spell "WORLD" backwards correctly. Judgment and insight: improved with guarded prognosis Impression: Major depressive disorder, without psychotic features Suicide attempt Nicotine dependence Plan: -Continue with discharge today as patient has improved and stabilized psychiatrically and is not currently an imminent threat to herself and/or others. Patient will remain at chronically elevated risk for harm to self and/or others due to her impulsivity. -Continue medications: Zoloft 75 mg daily for mood/anxiety, trazodone 100 mg daily at bedtime for depression/sleep, melatonin 6 mg daily at bedtime for insomnia -Patient was counseled on the need for medication compliance and appropriate follow-up at mental health and also primary care for medical issues. Patient verbalized understanding and agreed. -Social work to arrange for and conduct family meeting to ensure safety upon discharge and answer any questions/concerns. Social work also to arrange for patients follow up appointments for psychiatric care along with follow up with primary care provider. -Patient counseled on abstaining from recreational drugs and marijuana and alcohol. Was informed/educated on the adverse effects on their physical and mental health. Patient verbally agreed and understood. -Patient was instructed to return to the hospital or seek immediate medical care if their psychiatric or medical symptoms do worsen or reoccur. Allergies Allergy/AdvReac Type Severity Reaction Status Date / Time ibuprofen AdvReac NIGHTMARES Verified 04/12/22 20:17 Iodinated Contrast Media AdvReac Nausea & Verified 04/12/22 20:17 [Iodinated Contrast Media - Vomiting IV Dye] povidone-iodine AdvReac Nausea & Verified 04/12/22 20:17 [From Betadine] Vomiting soap [From Betadine] AdvReac Nausea & Verified 04/12/22 20:17 Vomiting Vital Signs Temp 96.9 F L 04/17/22 06:46 Pulse 101 H 04/17/22 06:46 Resp 16 04/17/22 06:46 BP 112/66 04/17/22 06:46 Pulse Ox 94 L 04/15/22 06:44 FiO2 Patient Condition at Discharge: Stable Plan - Discharge Summary Discharge Rx Participant: No New Discharge Prescriptions: New traZODone HCL 150 mg PO HS 30 Days tablet Docusate [Colace] 100 mg PO BID PRN 30 Days cap PRN Reason: Constipation Butalb/APAP/Caff 50-325-40Mg [Fioricet 50-325-40] 1 each PO Q4HR PRN 3 Days tab PRN Reason: Headache Folic Acid 1 mg PO DAILY 30 Days tab Nicotine 14Mg/24Hr Patch [Habitrol] 1 patch TRANSDERM DAILY 14 Days patch Melatonin 6 mg PO HS 30 Days tab Montelukast [Singulair] 10 mg PO DAILY 30 Days tab Sertraline [Zoloft] 75 mg PO DAILY 30 Days tab Discharge Medication List Butalb/APAP/Caff 50-325-40Mg [Fioricet 50-325-40] 1 each PO Q4HR PRN 3 Days tab 04/17/22 [Rx] Docusate [Colace] 100 mg PO BID PRN 30 Days cap 04/17/22 [Rx] Folic Acid 1 mg PO DAILY 30 Days tab 04/17/22 [Rx] Melatonin 6 mg PO HS 30 Days tab 04/17/22 [Rx] Montelukast [Singulair] 10 mg PO DAILY 30 Days tab 04/17/22 [Rx] Nicotine 14Mg/24Hr Patch [Habitrol] 1 patch TRANSDERM DAILY 14 Days patch 04/17/22 [Rx] Sertraline [Zoloft] 75 mg PO DAILY 30 Days tab 04/17/22 [Rx] traZODone HCL 150 mg PO HS 30 Days tablet 04/17/22 [Rx] Follow up Appointment(s)/Referral(s): Referral, Referral [Other] - 04/24/22 9:00 am Activity/Diet/Wound Care/Special Instructions: Avoid the use of street drugs and alcohol. Take all prescriptions as prescribed. When you are in need of refills on your medications, please contact your medical provider and/or outpatient psychiatrist to have this done. Please go to scheduled outpatient appointment for aftercare treatment. If symptoms return or become worse, call the crisis line at and/or go to the nearest emergency room for evaluation. Discharge Disposition: HOME SELF-CARE
[2022-04-17] MEDS ORDERED: traZODone HCL 50 MG TAB PO SCH (21:00)
[2022-04-17] MEDS ORDERED: MELATONIN 3 MG TABLET PO SCH (21:00)
== END 2022-04-17 12:32 | disposition home or self-care (01) | DRG 885 ==
LOC: 3MHU 18:10
PROVIDERS: ADMIT Psychiatry & Neurology Psychiatry; ATTEND Psychiatry & Neurology Psychiatry
DX: F33.2 Major depressive disorder, recurrent severe without psychotic features (principal); T42.4X2D Poisoning by benzodiazepines, intentional self-harm, subsequent encounter; E78.5 Hyperlipidemia, unspecified; F17.210 Nicotine dependence, cigarettes, uncomplicated; F41.9 Anxiety disorder, unspecified; G47.00 Insomnia, unspecified; G89.29 Other chronic pain; I10 Essential (primary) hypertension; K59.00 Constipation, unspecified; I25.10 Atherosclerotic heart disease of native coronary artery without angina pectoris; J44.9 Chronic obstructive pulmonary disease, unspecified; K21.9 Gastro-esophageal reflux disease without esophagitis; T18.3XXA Foreign body in small intestine, initial encounter; M41.9 Scoliosis, unspecified; M79.7 Fibromyalgia; M81.0 Age-related osteoporosis without current pathological fracture; R29.6 Repeated falls; R26.81 Unsteadiness on feet; Z79.899 Other long term (current) drug therapy; Z83.2 Family history of diseases of the blood and blood-forming organs and certain disorders involving the immune mechanism; Z91.51 Personal history of suicidal behavior; Z71.89 Other specified counseling; Z28.310 Unvaccinated for COVID-19; Z88.6 Allergy status to analgesic agent; Z91.041 Radiographic dye allergy status
CPT/HCPCS: 74018

== ENCOUNTER 2022-04-25 16:44 | Emergency (ER) | payer MEDICARE ==
[2022-04-25 16:52] VITALS: RESP 18
[2022-04-25] MEDS ORDERED: diphenhydrAMINE 50 MG/ML 1 ML VIAL IVP STA (17:02)
[2022-04-25] MEDS ORDERED: SODIUM CHLORIDE 0.9% 1,000 ML IV STA ×2 (17:02)
[2022-04-25] MEDS ORDERED: PROCHLORPERAZINE INJ 10 MG/2 ML VIAL IVP STA (17:03)
[2022-04-25 17:28] LABS: Basophils # (A) 0.1 k/uL (0-0.2); Basophils % (A) 1 %; Eosinophils # (A) 0.2 k/uL (0-0.7); Eosinophils % (A) 2 %; HCT 35.6 % (34.0-46.0); HGB 11.7 gm/dL (11.4-16.0); Lymphocytes % (A) 39 %; MCH 30.8 pg (25.0-35.0); MCHC 32.8 g/dL (31.0-37.0); MCV 93.9 fL (80.0-100.0); Mean Platelet Volume 7.8; Monocytes # (A) 0.3 k/uL (0-1.0); Monocytes % (A) 4 %; Neutrophils # (A) 3.9 k/uL (1.3-7.7); Neutrophils % (A) 52 %; RBC 3.79 m/uL (3.80-5.40); RDW 15.4 % (11.5-15.5); WBC 7.6 k/uL (3.8-10.6)
[2022-04-25 17:31] LABS: Platelet Count 487 k/uL (150-450)
--- NOTE | 2022-04-25 17:36 | ED ---
General Adult HPI - General Chief complaint: Recheck/Abnormal Lab/Rx Stated complaint: High BP, Headache Time Seen by Provider: 04/25/22 16:47 Source: patient, EMS, RN notes reviewed Mode of arrival: EMS Limitations: no limitations - History of Present Illness Initial comments: 67-year-old female recently history of admission for suicidal thoughts and i deation is here today because of headache times today with elevated blood pressure. Seen in the office of her doctor the reported blood pressure was 219 systolic. She complains of a headache for 2 days ago at the back of her neck into her scalp no focal weakness no nausea no vomiting. Complaints or modifying factors she was on blood pressure medications in the past but has not been on it for over a year. Reports of fevers chills nausea vomiting sweats or other symptoms - Related Data Home Medications Medication Instructions Recorded Confirmed Docusate [Colace] 100 mg PO BID 04/25/22 04/25/22 Previous Rx's Medication Instructions Recorded Folic Acid 1 mg PO DAILY 30 Days tab 04/17/22 Melatonin 6 mg PO HS 30 Days tab 04/17/22 Montelukast [Singulair] 10 mg PO DAILY 30 Days tab 04/17/22 Sertraline [Zoloft] 75 mg PO DAILY 30 Days tab 04/17/22 traZODone HCL 150 mg PO HS 30 Days tablet 04/17/22 Butalb/APAP/Caff 50-325-40Mg 1 tab PO Q4H PRN 3 Days #18 tablet 04/25/22 [Fioricet 50-325-40] Allergies Allergy/AdvReac Type Severity Reaction Status Date / Time ibuprofen AdvReac NIGHTMARES Verified 04/25/22 17:32 Iodinated Contrast Media AdvReac Nausea & Verified 04/25/22 17:32 [Iodinated Contrast Media - Vomiting IV Dye] povidone-iodine AdvReac Nausea & Verified 04/25/22 17:32 [From Betadine] Vomiting soap [From Betadine] AdvReac Nausea & Verified 04/25/22 17:32 Vomiting Review of Systems ROS Statement: Those systems with pertinent positive or pertinent negative responses have been documented in the HPI. ROS Other: All systems not noted in ROS Statement are negative. Past Medical History Past Medical History: Coronary Artery Disease (CAD), Chest Pain / Angina, COPD, Fibromyalgia, GERD/Reflux, Hyperlipidemia, Hypertension, Pneumonia Additional Past Medical History / Comment(s): Chronic back pain, DDD, bulging discs, scoliosis, osteoporosis. History of Any Multi-Drug Resistant Organisms: None Reported Past Surgical History: Back Surgery, Breast Surgery, Heart Catheterization With Stent, Hysterectomy, Orthopedic Surgery Additional Past Surgical History / Comment(s): Back injections, L patellar surgery, R carpal tunnel release, L breast benign biopsy, sinus surgery, EGD Past Anesthesia/Blood Transfusion Reactions: No Reported Reaction Date of Last Stent Placement:: 05/10/20 Past Psychological History: Anxiety, Depression Smoking Status: Current every day smoker - Past Family History Mother Family Medical History: Cancer Additional Family Medical History / Comment(s): Mother had lupus and TB Father History Unknown: Yes General Exam - General Exam Comments Initial Comments: Is a well-developed frail-appearing female who is awake alert oriented 4 Limitations: no limitations General appearance: alert, anxious Head exam: Present: atraumatic, normocephalic, normal inspection Eye exam: Present: normal appearance, PERRL, EOMI. Absent: scleral icterus, conjunctival injection, periorbital swelling ENT exam: Present: mucous membranes dry Neck exam: Present: normal inspection, tenderness (Is palpation over the paraspinous musculature this does reproduce the pain on palpation no step-off no crepitation no midline tenderness also no stridor JVD or bruits), full ROM. Absent: meningismus, lymphadenopathy Respiratory exam: Present: normal lung sounds bilaterally. Absent: respiratory distress, wheezes, rales, rhonchi, stridor Cardiovascular Exam: Present: regular rate, normal rhythm, normal heart sounds. Absent: systolic murmur, diastolic murmur, rubs, gallop, clicks GI/Abdominal exam: Present: soft, normal bowel sounds. Absent: distended, tenderness, guarding, rebound, rigid, bruit, pulsatile mass Extremities exam: Present: normal inspection, full ROM, normal capillary refill. Absent: tenderness, pedal edema, joint swelling, calf tenderness Back exam: Present: normal inspection Neurological exam: Present: alert, oriented X3, CN II-XII intact Psychiatric exam: Present: normal affect, normal mood Skin exam: Present: warm, dry, intact, normal color. Absent: rash Course Vital Signs 04/25/22 04/25/22 04/25/22 16:47 17:40 18:57 Temperature 98.2 F Pulse Rate 84 78 64 Respiratory 18 18 18 Rate Blood Pressure 198/113 168/103 150/92 O2 Sat by Pulse 97 95 98 Oximetry 04/25/22 19:36 Temperature Pulse Rate 71 Respiratory 18 Rate Blood Pressure 149/85 O2 Sat by Pulse 96 Oximetry - Reevaluation(s) Reevaluation #1: 04/25/22 17:51 EKG done in the emergency department appears consistent with a 1 sent from the office today. EKG Findings - EKG Results: EKG: interpreted by DAWIT, sinus rhythm (Sinus rhythm a 73 [place] interval 127 QRS duration 88 QT/QTC 390/[address]-T wave changes) Medical Decision Making - Medical Decision Making Did reevaluate patient several occasions she is feeling much improved at the medication was given as well as IV fluids. We did a long discussion also with the patient's daughter patient will be discharged. She ran out of her chronic headache medication I will refill a three-day prescription for her to take a follow-up with her doctor we also did discuss the blood pressure she is to monitor blood pressure follow-up with her doctor before medications are started. - Lab Data Result diagrams: 04/25/22 17:19 04/25/22 17:19 Lab Results 04/25/22 04/25/22 04/25/22 Range/Units 17:19 17:19 17:19 WBC 7.6 (3.8-10.6) k/uL RBC 3.79 L (3.80-5.40) m/uL Hgb 11.7 (11.4-16.0) gm/dL Hct 35.6 (34.0-46.0) % MCV 93.9 (80.0-100.0) fL MCH 30.8 (25.0-35.0) pg MCHC 32.8 (31.0-37.0) g/dL RDW 15.4 (11.5-15.5) % Plt Count 487 H D (150-450) k/uL MPV 7.8 Neutrophils % 52 % Lymphocytes % 39 % Monocytes % 4 % Eosinophils % 2 % Basophils % 1 % Neutrophils # 3.9 (1.3-7.7) k/uL Lymphocytes # 3.0 (1.0-4.8) k/uL Monocytes # 0.3 (0-1.0) k/uL Eosinophils # 0.2 (0-0.7) k/uL Basophils # 0.1 (0-0.2) k/uL Sodium 139 (137-145) mmol/L Potassium 3.8 (3.5-5.1) mmol/L Chloride 109 H (98-107) mmol/L Carbon Dioxide 23 (22-30) mmol/L Anion Gap 7 mmol/L BUN 19 H (7-17) mg/dL Creatinine 0.67 (0.52-1.04) mg/dL Est GFR (CKD-EPI)AfAm >90 (>60 ml/min/1.73 sqM) Est GFR (CKD-EPI)NonAf >90 (>60 ml/min/1.73 sqM) Glucose 102 H (74-99) mg/dL Calcium 9.3 (8.4-10.2) mg/dL Magnesium 1.9 (1.6-2.3) mg/dL Total Bilirubin 0.1 L (0.2-1.3) mg/dL AST 17 (14-36) U/L ALT 10 (4-34) U/L Alkaline Phosphatase 121 (38-126) U/L Creatine Kinase 50 (30-135) U/L Total Creatine Kinase 49 (30-135) U/L CK-MB (CK-2) 0.3 (0.0-2.4) ng/mL CK-MB (CK-2) Rel Index 0.6 NT-Pro-B Natriuret Pep pg/mL Total Protein 6.9 (6.3-8.2) g/dL Albumin 3.9 (3.5-5.0) g/dL 04/25/22 Range/Units 17:19 WBC (3.8-10.6) k/uL RBC (3.80-5.40) m/uL Hgb (11.4-16.0) gm/dL Hct (34.0-46.0) % MCV (80.0-100.0) fL MCH (25.0-35.0) pg MCHC (31.0-37.0) g/dL RDW (11.5-15.5) % Plt Count (150-450) k/uL MPV Neutrophils % % Lymphocytes % % Monocytes % % Eosinophils % % Basophils % % Neutrophils # (1.3-7.7) k/uL Lymphocytes # (1.0-4.8) k/uL Monocytes # (0-1.0) k/uL Eosinophils # (0-0.7) k/uL Basophils # (0-0.2) k/uL Sodium (137-145) mmol/L Potassium (3.5-5.1) mmol/L Chloride (98-107) mmol/L Carbon Dioxide (22-30) mmol/L Anion Gap mmol/L BUN (7-17) mg/dL Creatinine (0.52-1.04) mg/dL Est GFR (CKD-EPI)AfAm (>60 ml/min/1.73 sqM) Est GFR (CKD-EPI)NonAf (>60 ml/min/1.73 sqM) Glucose (74-99) mg/dL Calcium (8.4-10.2) mg/dL Magnesium (1.6-2.3) mg/dL Total Bilirubin (0.2-1.3) mg/dL AST (14-36) U/L ALT (4-34) U/L Alkaline Phosphatase (38-126) U/L Creatine Kinase (30-135) U/L Total Creatine Kinase (30-135) U/L CK-MB (CK-2) (0.0-2.4) ng/mL CK-MB (CK-2) Rel Index NT-Pro-B Natriuret Pep 261 pg/mL Total Protein (6.3-8.2) g/dL Albumin (3.5-5.0) g/dL - Radiology Data Radiology results: report reviewed (Imaging reviewed as well as report no acute processes.), image reviewed Disposition Clinical Impression: Dehydration, Cephalgia, Hypertension Disposition: HOME SELF-CARE Condition: Good Instructions (If sedation given, give patient instructions): General Headache (ED), Dehydration (ED), Hypertension in the Older Adult (ED) Prescriptions: Butalb/APAP/Caff 50-325-40Mg [Fioricet 50-325-40] 1 tab PO Q4H PRN 3 Days #18 tablet PRN Reason: Headache Is patient prescribed a controlled substance at d/c from ED?: No When asked, does pt state using other controlled substances?: Yes If prescribed controlled substance>3 days was MAPS reviewed?: Prescribed <3 Days If opioid is for acute pain is fill amount 7 days or less?: Yes If Rx opioid, was Start Talking consent form obtained?: Yes Referrals: Marium Mazariegos MD [Primary Care Provider] - 1-2 days Decision Date: 04/25/22 Decision Time: 20:03
[2022-04-25 17:37] LABS: ALT 10 U/L (4-34); AST 17 U/L (14-36); African American GFR (CKD) >90 (>60 ml/min/1.73 sqM); Albumin 3.9 g/dL (3.5-5.0); Alkaline Phosphatase 121 U/L (38-126); Anion Gap 7 mmol/L; Blood Urea Nitrogen 19 mg/dL (7-17); Calcium 9.3 mg/dL (8.4-10.2); Carbon Dioxide 23 mmol/L (22-30); Chloride 109 mmol/L (98-107); Creatine Kinase 50 U/L (30-135); Glucose 102 mg/dL (74-99); Magnesium 1.9 mg/dL (1.6-2.3); Non-African American GFR(CKD) >90 (>60 ml/min/1.73 sqM); Potassium 3.8 mmol/L (3.5-5.1); Sodium 139 mmol/L (137-145); Total Bilirubin 0.1 mg/dL (0.2-1.3); Total Protein 6.9 g/dL (6.3-8.2)
[2022-04-25 17:51] LABS: Creatine Kinase MB 0.3 ng/mL (0.0-2.4)
--- NOTE | 2022-04-25 19:08 | CT ---
EXAMINATION TYPE: CT brain wo con DATE OF EXAM: 04/25/2022 HISTORY: Headache; weakness, arms CT DLP: 1125.4 mGycm. Automated Exposure Control for Dose Reduction was Utilized. TECHNIQUE: CT scan of the head is performed without contrast. COMPARISON: 04/10/2022 FINDINGS: There is no acute intracranial hemorrhage or midline shift identified. There is diffuse lg tricular and sulcal prominence consistent with diffuse age-related cerebral atrophy. There is low-at tenuation in the periventricular white matter consistent with chronic small vessel ischemic change. The globes are intact and the visualized sinuses are clear. IMPRESSION: No acute process.
--- NOTE | 2022-04-25 19:16 | XR ---
EXAMINATION: XR chest 2V DATE AND TIME: 04/25/2022 6:44 PM CLINICAL INDICATION: PHH; Hypertension TECHNIQUE: Departmental protocol COMPARISON: 04/12/2022 FINDINGS: The lungs are clear. The pleural spaces are negative. The cardiac silhouette is not enlarged. The remainder of the mediastinal silhouette is unremarkable. The skeletal structures and soft tissues are negative for acute findings. IMPRESSION: No acute radiographic process.
[2022-04-25 20:15] VITALS: BP 172/100; PULSE 75; TEMP 97.5
== END 2022-04-25 20:18 | disposition home or self-care (01) ==
LOC: EC 16:44
DX: E86.0 Dehydration (principal); R51.9 Headache, unspecified; I10 Essential (primary) hypertension; I25.10 Atherosclerotic heart disease of native coronary artery without angina pectoris; J44.9 Chronic obstructive pulmonary disease, unspecified; F41.9 Anxiety disorder, unspecified; F32.A Depression, unspecified; K21.9 Gastro-esophageal reflux disease without esophagitis; E78.5 Hyperlipidemia, unspecified; F17.200 Nicotine dependence, unspecified, uncomplicated; Z88.6 Allergy status to analgesic agent; Z91.041 Radiographic dye allergy status; Z88.8 Allergy status to other drugs, medicaments and biological substances; Z79.899 Other long term (current) drug therapy
CPT/HCPCS: 99284 ×2; 96374 ×2; 96375 ×2; 96361 ×2; 36415; 93005; 83880; 80053; 82550; 82553; 83735; 85025; 71046; 70450; J1200; J0780; 99285

== ENCOUNTER → 2022-05-06 | Outpatient (CLI) | payer MEDICARE ==
--- NOTE | 2022-05-06 20:24 | CT ---
EXAMINATION TYPE: CT abdomen pelvis wo con CT DLP: 184.7 mGycm, Automated exposure control for dose reduction was used. DATE OF EXAM: 05/06/2022 5:52 PM COMPARISON: None CLINICAL INDICATION:Female, 67 years old with history of K59.09,R14.0; constipation TECHNIQUE: Axial CT of the abdomen and pelvis. Sagittal and coronal reformats were created on a [employer] workstation. Contrast used: none Oral contrast used: without Oral Contrast FINDINGS: LOWER CHEST: Unremarkable ABDOMEN LIVER: Unremarkable GALLBLADDER AND BILE DUCTS: Unremarkable. PANCREAS: Unremarkable. SPLEEN: Unremarkable. ADRENAL GLANDS: Unremarkable. KIDNEYS AND URETERS: No evidence of hydronephrosis or renal calculus. The ureters are unremarkable. PELVIS BLADDER: Unremarkable REPRODUCTIVE: Unremarkable. ABDOMEN & PELVIS STOMACH AND BOWEL: There is a large stool burden throughout the colon. Scattered clonic diverticula p resent. No evidence of bowel obstruction. Appendix is normal. PERITONEUM: No evidence of pneumoperitoneum or free fluid. VASCULATURE: Infrarenal aortic ectasia measuring up to 2.8 cm. Scattered atherosclerosis of the arter ial vasculature. MUSCULOSKELETAL: No acute osseous abnormalities. Multilevel disc degeneration changes of the spine wi th grade 1 anterolisthesis of L3 on L4. No spondylolysis. LYMPH NODES: No gross evidence for lymphadenopathy. SOFT TISSUE/ABDOMINAL WALL: Unremarkable IMPRESSION: 1. Large stool burden throughout the colon with evidence of fecal stasis. 2. Colonic diverticulosis. 3. 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
== END | disposition home or self-care (01) ==
LOC: RADCTMAIN 17:21
PROVIDERS: ATTEND Family Medicine
DX: I71.4 Abdominal aortic aneurysm, without rupture (principal); K57.30 Diverticulosis of large intestine without perforation or abscess without bleeding
CPT/HCPCS: 74176

== ENCOUNTER 2022-06-25 08:23 | Day surgery (SDC) | payer MEDICARE ==
[2022-06-25] MEDS: LACTATED RINGERS 1,000 ML IV SCH ×2 (09:16→09:54)
[2022-06-25] MEDS ORDERED: LIDOCAINE 1% (10MG/ML) FOR IV START INTRADERMA ONE (09:16)
[2022-06-25 09:18] VITALS: RESP 16; TEMP 97.9
[2022-06-25] MEDS ORDERED: PROPOFOL 10 MG/ML 20 ML VIAL IV ONE (09:54)
[2022-06-25] MEDS ORDERED: ONDANSETRON 4 MG/2 ML VIAL ONE (09:54)
--- NOTE | 2022-06-25 10:19 | P.PCN ---
Date of Procedure: 06/25/22 Procedure(s) Performed: BRIEF HISTORY: Patient is a 67-year-old pleasant at female scheduled for an elective colonoscopy as a part of evaluation change in bowel habits for the last several years duration. PROCEDURE PERFORMED: Colonoscopy. PREOPERATIVE DIAGNOSIS: Change in bowel habits. IV sedation per Anesthesia. PROCEDURE: After informed consent was obtained, the patient, was brought into the endoscopy unit. IV sedation was administered by Anesthesia under continuous monitoring. Digital rectal examination was normal. Initially the Olympus CF-160 flexible video colonoscope was then inserted in the rectum, gradually advanced into the cecum without any difficulty. Careful examination was performed as the scope was gradually being withdrawn. Ileocecal valve and the appendiceal orifice were visualized and appeared normal. Prep was excellent. Mucosa of the cecum, ascending colon, transverse colon, descending colon, sigmoid colon, and rectum appeared normal. Retroflexion was performed in the rectum and no lesions were seen. Scattered sigmoid diverticulosis. The patient tolerated the procedure well. IMPRESSION: Normal-appearing colon from rectum to cecum with no evidence of colorectal neoplasia . Scattered sigmoid diverticulosis. RECOMMENDATIONS: Findings of this examination were discussed with the patient less her family. She was advised to continue with MiraLAX everyday and follow a high-fiber diet. Recommend repeat screening colonoscopy in 10 years..
[2022-06-25 10:40] VITALS: PULSE 57
[2022-06-25 10:44] VITALS: BP 136/84
== END 2022-06-25 11:06 | disposition home or self-care (01) ==
LOC: ORWHC2ENDO 08:23
PROVIDERS: ATTEND Internal Medicine Gastroenterology
DX: K57.30 Diverticulosis of large intestine without perforation or abscess without bleeding (principal); J44.9 Chronic obstructive pulmonary disease, unspecified; M79.7 Fibromyalgia; F17.200 Nicotine dependence, unspecified, uncomplicated; Z91.041 Radiographic dye allergy status; Z79.899 Other long term (current) drug therapy
CPT/HCPCS: 45378; J2405; J2704

== ENCOUNTER 2022-10-17 13:15 | Inpatient (IN) | payer MEDICARE ==
[2022-10-17] MEDS ORDERED: DEXAMETHASONE SOD PHOSPHATE 10 MG/ML 1 ML VIAL IVP STA (14:52)
[2022-10-17] MEDS ORDERED: diphenhydrAMINE 50 MG/ML 1 ML VIAL IVP STA (14:52)
[2022-10-17] MEDS ORDERED: SODIUM CHLORIDE 0.9% 500 ML 500 ML IV STA (14:52)
--- NOTE | 2022-10-17 15:00 | ED ---
Headache HPI - General Chief Complaint: Headache Stated Complaint: Blot clot, sent by Dr Espino Seen by Provider: 10/17/22 14:40 Source: patient, family, RN notes reviewed, old records reviewed Mode of arrival: ambulatory Limitations: no limitations - History of Present Illness Initial Comments: This is a nontoxic-appearing 67-year-old female that presents to the emergency room after being sent by her PCP Dr. Causey for evaluation. Family at bedside states that her labs are elevated but unclear which labs. States that she was having this right-sided earache and jaw pain for over a month. Denies any fevers. No nausea vomiting or diarrhea. No known sick contacts. No visual changes. Patient does have a history of coronary artery disease, COPD, f ibromyalgia, hypertension MD Complaint: headache -: month(s) (1) Onset Description: gradual Location: right, temporal, neck, other (jaw) Quality: constant Consistency: constant Improves With: nothing Treatments Prior to Arrival: other (pcp labs) - Related Data Home Medications Medication Instructions Recorded Confirmed amLODIPine BESYLATE 5 mg PO DAILY 06/21/22 10/17/22 Plesxdr-Ciah-Ozdp [phone] 3 tab PO BID 10/17/22 10/17/22 [Excedrin] Atorvastatin Calcium 20 mg PO HS 10/17/22 10/17/22 Melatonin 10 mg PO HS 10/17/22 10/17/22 Omeprazole 40 mg PO DAILY 10/17/22 10/17/22 Previous Rx's Medication Instructions Recorded Sertraline [Zoloft] 75 mg PO DAILY 30 Days tab 04/17/22 traZODone HCL 150 mg PO HS 30 Days tablet 04/17/22 Allergies Allergy/AdvReac Type Severity Reaction Status Date / Time ibuprofen AdvReac NIGHTMARES Verified 10/17/22 15:39 Iodinated Contrast Media AdvReac Nausea & Verified 10/17/22 15:39 [Iodinated Contrast Media - Vomiting IV Dye] povidone-iodine AdvReac Nausea & Verified 10/17/22 15:39 [From Betadine] Vomiting soap [From Betadine] AdvReac Nausea & Verified 10/17/22 15:39 Vomiting Review of Systems ROS Statement: Those systems with pertinent positive or pertinent negative responses have been documented in the HPI. ROS Other: All systems not noted in ROS Statement are negative. Past Medical History Past Medical History: Coronary Artery Disease (CAD), Chest Pain / Angina, COPD, Fibromyalgia, Hyperlipidemia, Hypertension Additional Past Medical History / Comment(s): Chronic back pain, DDD, bulging discs, scoliosis, osteoporosis. History of Any Multi-Drug Resistant Organisms: None Reported Past Surgical History: Breast Surgery, Heart Catheterization With Stent, Hysterectomy, Orthopedic Surgery Additional Past Surgical History / Comment(s): Back injections, L patellar surgery, R carpal tunnel release, L breast benign biopsy, sinus surgery, EGD Past Anesthesia/Blood Transfusion Reactions: No Reported Reaction Date of Last Stent Placement:: 05/10/20 Past Psychological History: Anxiety, Depression Smoking Status: Current every day smoker - Past Family History Mother Family Medical History: Cancer Additional Family Medical History / Comment(s): Mother had lupus and TB Father History Unknown: Yes General Exam Limitations: no limitations General appearance: alert, in no apparent distress Head exam: Present: atraumatic, normocephalic, normal inspection Eye exam: Present: normal appearance, EOMI. Absent: scleral icterus, conjunctival injection, nystagmus, periorbital swelling ENT exam: Present: mucous membranes moist Neck exam: Present: normal inspection, tenderness (Right side), full ROM. Absent: meningismus, lymphadenopathy, thyromegaly Respiratory exam: Present: normal lung sounds bilaterally. Absent: respiratory distress, accessory muscle use Cardiovascular Exam: Present: regular rate, normal rhythm GI/Abdominal exam: Present: soft. Absent: distended, tenderness, rigid Extremities exam: Present: normal capillary refill. Absent: pedal edema, joint swelling, calf tenderness Back exam: Absent: rash noted Neurological exam: Present: alert, oriented X3, normal gait Psychiatric exam: Present: normal affect, normal mood Skin exam: Present: warm, dry, normal color. Absent: cyanosis, diaphoretic, petechiae, pallor Course Vital Signs 10/17/22 10/17/22 13:43 18:39 Temperature 98 F 97.6 F Pulse Rate 95 97 Respiratory 16 16 Rate Blood Pressure 102/68 155/92 O2 Sat by Pulse 95 96 Oximetry - Reevaluation(s) Reevaluation #1: 10/17/22 16:35 Patient states feeling much better after Decadron and Benadryl. Denies any pain at this time. Options were discussed with her and her daughter regarding disposition she requesting I speak with Dr. Marium Gu her PCP. Time: 16:35 Reevaluation #2: 10/17/22 16:[address] Marium Gu who recommended observation with vascular consult if sed rate is greater than 50 otherwise can be discharged home on steroids and follow-up. Time: 16:50 Medical Decision Making - Medical Decision Making Patient sent by primary care doctor for evaluation of right ear and jaw pain. No visual changes. Sed rate was elevated at office yesterday 110. History of coronary artery disease, COPD, fibromyalgia, hypertension, hyperlipidemia, degenerative disc disease, chronic back pain with scoliosis Surgical history, cardiac catheterization, multiple injections, hysterectomy Patient is a daily smoker, one pack a day Patient complains of 8/10 pain, travels from right quaker and down into the right ear and jaw. Denies any vision changes. CT of the brain without contrast interpreted by me shows no intracranial bl eeding midline shift or acute fracture. Radiologist interpretation no acute intracranial process. Temporomandibular joints appeared grossly symmetric. Labs show no evidence of leukocytosis Visual acuity 20/40 each eye with glasses. She denies any visual disturbance but states that she does have normally poor vision.. Today ESR 87 was 110 in the office yesterday. CRP 1.5. Patient was given Decadron and Benadryl with complete relief of her discomfort. I did speak with primary care Dr. Causey who recommended placing observation with consult. Patient is agreeable to this plan of care. Case discussed with Dr. Ritchie Was pt. sent in by a medical professional or institution? @ -pcp Did you speak to anyone other than the patient for history? @ -pcp and family Did you review nursing and triage notes? @ -yes i agree Were old charts reviewed? @ -previous labs Differential Diagnosis? @ -Differential Headache: Migraine, tension, cluster, carbon monoxide, central venous thrombosis, pension karma temporal arteritis, acute closure glaucoma, intercranial hemorrhage, mastoiditis, sinusitis, head injury, this is not meant to be an all-inclusive list. CT interpreted by me (1pt min.)? @ -yes as above U/S interpreted by me (1pt. min.)? @ -[none] What testing was considered but not performed? (CT, X-rays, U/S, labs)? Why? @ no What meds were considered but not given? Why? @ -none Did you discuss the management of the patient with other professionals? @ -PCP Did you reconcile home meds? @ -yes Was smoking cessation discussed for >3mins.? @ -yes Was critical care preformed (if so, how long)? @ -no Were there social determinants of health that impacted care today? How? ( Homelessness, low income, unemployed, alcoholism, drug addiction, transportation, low edu. Level, literacy, decrease access to med. care, [facility], rehab)? @ -none Was there de-escalation of care discussed even if they declined? (Discuss DNR or withdrawal of care, Hospice)? @ -no What co-morbidities impacted this encounter? (DM, HTN, Smoking, COPD, CAD, Cancer, CVA, Hep., AIDS, mental health diagnosis, sleep apnea, morbid obesity)? @ -History of coronary artery disease, COPD, fibromyalgia, hypertension, hyperlipidemia, degenerative disc disease, chronic back pain with scoliosis Was patient admitted / discharged? @ -Admitted Undiagnosed new problem with uncertain prognosis? @ -[none] Drug Therapy requiring intensive monitoring for toxicity (Heparin, Nitro, Insulin, Cardizem)? @ -No Were any procedures done? @ -no Diagnosis/symptom? @ -Acute headache with right-sided facial pain rule out temporal arteritis Acute, or Chronic, or Acute on Chronic? @ -Acute Uncomplicated (without systemic symptoms) or Complicated (systemic symptoms)? @ -Complicated Side effects of treatment? @ -[none] Exacerbation, Progression, or Severe Exacerbation] @ -[no] Poses a threat to life or bodily function? @ -[no] - Lab Data Result diagrams: 10/17/22 15:04 10/17/22 15:04 Lab Results 10/17/22 10/17/22 Range/Units 15:04 15:04 WBC 8.5 (3.8-10.6) k/uL RBC 4.07 (3.80-5.40) m/uL Hgb 12.2 (11.4-16.0) gm/dL Hct 35.7 (34.0-46.0) % MCV 87.7 (80.0-100.0) fL MCH 29.9 (25.0-35.0) pg MCHC 34.1 (31.0-37.0) g/dL RDW 15.4 (11.5-15.5) % Plt Count 339 (150-450) k/uL MPV 7.5 Neutrophils % 70 % Lymphocytes % 22 % Monocytes % 5 % Eosinophils % 1 % Basophils % 0 % Neutrophils # 5.9 (1.3-7.7) k/uL Lymphocytes # 1.9 (1.0-4.8) k/uL Monocytes # 0.4 (0-1.0) k/uL Eosinophils # 0.1 (0-0.7) k/uL Basophils # 0.0 (0-0.2) k/uL ESR 87 H (0-20) mm/hr Sodium 139 (137-145) mmol/L Potassium 3.1 L (3.5-5.1) mmol/L Chloride 105 (98-107) mmol/L Carbon Dioxide 28 (22-30) mmol/L Anion Gap 6 mmol/L BUN 23 H (7-17) mg/dL Creatinine 0.89 (0.52-1.04) mg/dL Est GFR (CKD-EPI)AfAm 78 (>60 ml/min/1.73 sqM) Est GFR (CKD-EPI)NonAf 67 (>60 ml/min/1.73 sqM) Glucose 98 (74-99) mg/dL Calcium 9.0 (8.4-10.2) mg/dL C-Reactive Protein 1.5 H (<1.0) mg/dL Disposition Clinical Impression: Right sided facial pain Disposition: ADMITTED IP TO THIS [facility] Decision Date: 10/17/22 Decision Time: 17:08
[2022-10-17 15:23] LABS: Basophils % (A) 0 %; Eosinophils # (A) 0.1 k/uL (0-0.7); Eosinophils % (A) 1 %; HCT 35.7 % (34.0-46.0); HGB 12.2 gm/dL (11.4-16.0); Lymphocytes # (A) 1.9 k/uL (1.0-4.8); Lymphocytes % (A) 22 %; MCH 29.9 pg (25.0-35.0); MCHC 34.1 g/dL (31.0-37.0); MCV 87.7 fL (80.0-100.0); Mean Platelet Volume 7.5; Monocytes # (A) 0.4 k/uL (0-1.0); Monocytes % (A) 5 %; Neutrophils # (A) 5.9 k/uL (1.3-7.7); Neutrophils % (A) 70 %; Platelet Count 339 k/uL (150-450); RBC 4.07 m/uL (3.80-5.40); RDW 15.4 % (11.5-15.5); WBC 8.5 k/uL (3.8-10.6)
--- NOTE | 2022-10-17 15:39 | CT ---
EXAMINATION TYPE: CT brain wo con CT DLP: 1094.4 mGycm, Automated exposure control for dose reduction was used. DATE OF EXAM: 10/17/2022 3:27 PM COMPARISON: Prior CT Brain from 04/25/2022. CLINICAL INDICATION:Female, 67 years old with history of TMJ pain, right temporal pain, elevated SED rate, TMJ pain, RT temporal pain, elevated SED rate. TECHNIQUE: Brain: Axial CT images of the brain were obtained with coronal and sagittal reformats created and rev iewed. Contrast used: None. Oral contrast used: None. FINDINGS: Brain: Extra-axial spaces: No abnormal extra-axial fluid collections. Ventricular system: Within normal limits Cerebral parenchyma: No acute intraparenchymal hemorrhage or mass effect. The armstrong-white junction is well differentiated. Cerebellum: Unremarkable. Mass effect: No evidence of midline shift. Intracranial vasculature: Atherosclerotic calcifications of the intracranial vessels. Soft tissues: Normal. Calvarium/osseous structures: No depressed skull fracture. The temporal mandibular joints appear symm etric. No significant change from prior. Paranasal sinuses and mastoid air cells: Mild scattered paranasal sinus disease. Visualized orbits: Orbital contents are intact. IMPRESSION: 1. No acute intracranial process. 2. Temporal mandibular joints appear grossly symmetric.
[2022-10-17 16:11] LABS: C Reactive Protein 1.5 mg/dL (<1.0); Potassium 3.1 mmol/L (3.5-5.1)
[2022-10-17 16:52] LABS: Erythrocyte Sedimentation Rate 87 mm/hr (0-20)
[2022-10-17] MEDS ORDERED: NALOXONE 0.4 MG/ML 1 ML VIAL IV PRN (17:09)
[2022-10-17] MEDS ORDERED: ACETAMINOPHEN TAB 325 MG TAB PO PRN (17:15)
[2022-10-17] MEDS ORDERED: NICOTINE 21MG/24HR PATCH TRANSDERM STA (17:17)
[2022-10-17] MEDS: MELATONIN 5 MG TABLET PO SCH (20:23)
[2022-10-17] MEDS: ATORVASTATIN 20 MG TAB PO SCH (20:23)
[2022-10-17] MEDS: ASPIRIN-ACET-CAFF 250-250-65MG 1 EACH TAB PO SCH (20:24)
[2022-10-17] MEDS: traZODone HCL 50 MG TAB PO SCH (20:24)
[2022-10-17] MEDS ORDERED: Potassium Replacement Protocol 1 EACH MISC MISCELLANE PRN (22:47)
[2022-10-17] MEDS: POTASSIUM CHLORIDE ER 20 MEQ TAB.ER PO SCH ×2 (23:01→23:55)
[2022-10-18] MEDS: ASPIRIN-ACET-CAFF 250-250-65MG 1 EACH TAB PO SCH ×2 (08:56→20:47)
[2022-10-18] MEDS: amLODIPine 5 MG TAB PO SCH (08:56)
[2022-10-18] MEDS: PANTOPRAZOLE 40 MG TABLET PO SCH (08:56)
[2022-10-18] MEDS: predniSONE 20 MG TAB PO SCH (08:56)
[2022-10-18] MEDS: SERTRALINE 25 MG TAB PO SCH (09:03)
[2022-10-18 11:02] VITALS: BMI 15.9
[2022-10-18] MEDS ORDERED: HYDROcodone/APAP 5-325MG 1 EACH TAB PO STA (11:36)
[2022-10-18 13:45] LABS: African American GFR (CKD) 83 (>60 ml/min/1.73 sqM); Anion Gap 8 mmol/L; Blood Urea Nitrogen 29 mg/dL (7-17); Calcium 9.6 mg/dL (8.4-10.2); Carbon Dioxide 27 mmol/L (22-30); Chloride 106 mmol/L (98-107); Glucose 132 mg/dL (74-99); Non-African American GFR(CKD) 72 (>60 ml/min/1.73 sqM); Sodium 141 mmol/L (137-145)
--- NOTE | 2022-10-18 15:51 | P.GSCN ---
History of Present Illness Consult date: 10/18/22 Reason for Consult: right sided jaw pain, earache History of present illness: 67 year old female with history of COPD, fibromyalgia, CAD, and hypertension presents to the emergency room secondary to right sided earache and jaw pain for over a month. She also states having headaches regularly over the last month. States feeling much better after being treated with Decadron and Benadryl yesterday but currently still having pain at the right ear and jaw. She does get some relief with pain medications. She denies any fevers, chills, chest pain or shortness of breath. Review of Systems All systems: negative (what is mentioned in the PMH or HPI) Past Medical History Past Medical History: Coronary Artery Disease (CAD), Chest Pain / Angina, COPD, Fibromyalgia, Hyperlipidemia, Hypertension Additional Past Medical History / Comment(s): Chronic back pain, DDD, bulging discs, scoliosis, osteoporosis. History of Any Multi-Drug Resistant Organisms: None Reported Past Surgical History: Breast Surgery, Heart Catheterization With Stent, Hysterectomy, Orthopedic Surgery Additional Past Surgical History / Comment(s): Back injections, L patellar surgery, R carpal tunnel release, L breast benign biopsy, sinus surgery, EGD Past Anesthesia/Blood Transfusion Reactions: No Reported Reaction Date of Last Stent Placement:: 05/10/20 Past Psychological History: Anxiety, Depression Additional Psychological History / Comment(s): Pt resides with her daughter Floridalma. She uses no assistive device. She does not drive, her daughters take her to appointments. She manages her own medication. Daughters to pt are (Arline and Floridalma) Smoking Status: Current every day smoker Past Alcohol Use History: None Reported, Occasional Additional Past Alcohol Use History / Comment(s): Pt started smoking in 1967 and is a 1ppd smoker. Past Drug Use History: None Reported - Past Family History Mother Family Medical History: Cancer Additional Family Medical History / Comment(s): Mother had lupus and TB Father History Unknown: Yes Medications and Allergies Home Medications Medication Instructions Recorded Confirmed Type Sertraline [Zoloft] 75 mg PO DAILY 30 Days tab 04/17/22 10/17/22 Rx traZODone HCL 150 mg PO HS 30 Days tablet 04/17/22 10/17/22 Rx amLODIPine BESYLATE 5 mg PO DAILY 06/21/22 10/17/22 History [id number] 3 tab PO BID 10/17/22 10/17/22 History [Excedrin] Atorvastatin Calcium 20 mg PO HS 10/17/22 10/17/22 History Melatonin 10 mg PO HS 10/17/22 10/17/22 History Omeprazole 40 mg PO DAILY 10/17/22 10/17/22 History Allergies Allergy/AdvReac Type Severity Reaction Status Date / Time ibuprofen AdvReac NIGHTMARES Verified 10/17/22 15:39 Iodinated Contrast Media AdvReac Nausea & Verified 10/17/22 15:39 [Iodinated Contrast Media - Vomiting IV Dye] povidone-iodine AdvReac Nausea & Verified 10/17/22 15:39 [From Betadine] Vomiting soap [From Betadine] AdvReac Nausea & Verified 10/17/22 15:39 Vomiting Surgical - Exam Vital Signs Temp Pulse Resp BP Pulse Ox 98 F 95 16 102/68 95 10/17/22 13:43 10/17/22 13:43 10/17/22 13:43 10/17/22 13:43 10/17/22 13:43 - General well developed, well nourished, no distress - Eyes PERRL, normal ocular movement - ENT normal pinna, normal nares - Neck no masses - Respiratory normal expansion, normal respiratory effort - Cardiovascular Rhythm: regular - Abdomen Abdomen: soft, non tender - Psychiatric oriented to time, oriented to person, oriented to place, speech is normal pulse noted at the right temporal region. No tenderness to palpation at the right ear or pentecostalism. Palpable radial pulses bilaterally. Good capillary refill bilateral feet. No signs of ischemia. Results - Labs 10/17/22 15:04 10/18/22 13:15 Abnormal Lab Results - Last 24 Hours (Table) 10/17/22 10/17/22 10/18/22 Range/Units 15:04 15:04 13:15 ESR 87 H (0-20) mm/hr Potassium 3.1 L (3.5-5.1) mmol/L BUN 23 H 29 H (7-17) mg/dL Glucose 132 H (74-99) mg/dL C-Reactive Protein 1.5 H 1.0 H (<1.0) mg/dL Diabetes panel 10/17/22 10/18/22 Range/Units 15:04 13:15 Sodium 139 141 (137-145) mmol/L Potassium 3.1 L 4.0 (3.5-5.1) mmol/L Chloride 105 106 (98-107) mmol/L Carbon Dioxide 28 27 (22-30) mmol/L BUN 23 H 29 H (7-17) mg/dL Creatinine 0.89 0.84 (0.52-1.04) mg/dL Glucose 98 132 H (74-99) mg/dL Calcium 9.0 9.6 (8.4-10.2) mg/dL Calcium panel 10/17/22 10/18/22 Range/Units 15:04 13:15 Calcium 9.0 9.6 (8.4-10.2) mg/dL Pituitary panel 10/17/22 10/18/22 Range/Units 15:04 13:15 Sodium 139 141 (137-145) mmol/L Potassium 3.1 L 4.0 (3.5-5.1) mmol/L Chloride 105 106 (98-107) mmol/L Carbon Dioxide 28 27 (22-30) mmol/L BUN 23 H 29 H (7-17) mg/dL Creatinine 0.89 0.84 (0.52-1.04) mg/dL Glucose 98 132 H (74-99) mg/dL Calcium 9.0 9.6 (8.4-10.2) mg/dL Adrenal panel 10/17/22 10/18/22 Range/Units 15:04 13:15 Sodium 139 141 (137-145) mmol/L Potassium 3.1 L 4.0 (3.5-5.1) mmol/L Chloride 105 106 (98-107) mmol/L Carbon Dioxide 28 27 (22-30) mmol/L BUN 23 H 29 H (7-17) mg/dL Creatinine 0.89 0.84 (0.52-1.04) mg/dL Glucose 98 132 H (74-99) mg/dL Calcium 9.0 9.6 (8.4-10.2) mg/dL Assessment and Plan Assessment: 1. Jaw pain, headaches possible temporal arteritis 2. Elevated ESR 3. Fibromyalgia 4. COPD 5. HTN Plan: Patient doing better with current steroid treatment and would recommend continuing If definitive diagnosis needed then patient would require temporal artery biopsy which can be done as outpatient. Thank you for the consultation.
[2022-10-18] MEDS: KETOROLAC 15 MG/ML 1 ML VIAL IVP PRN (15:59)
[2022-10-18] MEDS: HYDROcodone/APAP 5-325MG 1 EACH TAB PO PRN (17:29)
--- NOTE | 2022-10-18 19:28 | P.HPIM ---
History of Present Illness H&P Date: 10/18/22 Chief Complaint: Headache/facial pain 67-year-old female that presents to the emergency room after being sent by her PCP Dr. Causey for evaluation. Family at bedside states that her labs are elevated but unclear which labs. States that she was having this right-sided earache and jaw pain for over a month. Denies any fevers. No nausea vomiting or diarrhea. No known sick contacts. No visual changes. Patient was sent by primary care doctor for evaluation of right ear and jaw pain. No visual changes. Sed rate was elevated at office yesterday 110. Patient does report History of coronary artery disease, COPD, fibromyalgia, hypertension, hyperlipidemia, degenerative disc disease, chronic back pain with scoliosis Surgical history, cardiac catheterization, multiple injections, hysterectomy Patient is a daily smoker, one pack a day Patient complains of 8/10 pain, travels from right alevism and down into the right ear and jaw. Denies any vision changes. CT of the brain without contrast interpreted as no acute intracranial process. Temporomandibular joints appeared grossly symmetric. Labs show no evidence of leukocytosis Today ESR 87 was 110 in the office yesterday. CRP 1.5. Patient was given Decadron and Benadryl with complete relief of her discomfort. Review of Systems REVIEW OF SYSTEMS: CONSTITUTIONAL: No fever, no malaise, no fatigue. HEENT: No recent visual problems or hearing problems. Denied any sore throat. CARDIOVASCULAR: No chest pain, orthopnea, PND, no palpitations, no syncope. PULMONARY: No shortness of breath, no cough, no hemoptysis. GASTROINTESTINAL: No diarrhea, no nausea, no vomiting, no abdominal pain. NEUROLOGICAL: headaches, no weakness, no numbness. HEMATOLOGICAL: Denies any bleeding or petechiae. GENITOURINARY: Denies any burning micturition, frequency, or urgency. MUSCULOSKELETAL/RHEUMATOLOGICAL: Denies any joint pain, swelling, or any muscle pain. ENDOCRINE: Denies any polyuria or polydipsia. The rest of the 14-point review of systems is negative. Past Medical History Past Medical History: Coronary Artery Disease (CAD), Chest Pain / Angina, COPD, Fibromyalgia, Hyperlipidemia, Hypertension Additional Past Medical History / Comment(s): Chronic back pain, DDD, bulging d iscs, scoliosis, osteoporosis. History of Any Multi-Drug Resistant Organisms: None Reported Past Surgical History: Breast Surgery, Heart Catheterization With Stent, Hysterectomy, Orthopedic Surgery Additional Past Surgical History / Comment(s): Back injections, L patellar surgery, R carpal tunnel release, L breast benign biopsy, sinus surgery, EGD Past Anesthesia/Blood Transfusion Reactions: No Reported Reaction Date of Last Stent Placement:: 05/10/20 Past Psychological History: Anxiety, Depression Additional Psychological History / Comment(s): Pt resides with her daughter Floridalma. She uses no assistive device. She does not drive, her daughters take her to appointments. She manages her own medication. Daughters to pt are (Arline and Floridalma) Smoking Status: Current every day smoker Past Alcohol Use History: None Reported, Occasional Additional Past Alcohol Use History / Comment(s): Pt started smoking in 1967 and is a 1ppd smoker. Past Drug Use History: None Reported - Past Family History Mother Family Medical History: Cancer Additional Family Medical History / Comment(s): Mother had lupus and TB Father History Unknown: Yes Medications and Allergies Home Medications Medication Instructions Recorded Confirmed Type Sertraline [Zoloft] 75 mg PO DAILY 30 Days tab 04/17/22 10/17/22 Rx traZODone HCL 150 mg PO HS 30 Days tablet 04/17/22 10/17/22 Rx amLODIPine BESYLATE 5 mg PO DAILY 06/21/22 10/17/22 History [id number] 3 tab PO BID 10/17/22 10/17/22 History [Excedrin] Atorvastatin Calcium 20 mg PO HS 10/17/22 10/17/22 History Melatonin 10 mg PO HS 10/17/22 10/17/22 History Omeprazole 40 mg PO DAILY 10/17/22 10/17/22 History Allergies Allergy/AdvReac Type Severity Reaction Status Date / Time ibuprofen AdvReac NIGHTMARES Verified 10/17/22 15:39 Iodinated Contrast Media AdvReac Nausea & Verified 10/17/22 15:39 [Iodinated Contrast Media - Vomiting IV Dye] povidone-iodine AdvReac Nausea & Verified 10/17/22 15:39 [From Betadine] Vomiting soap [From Betadine] AdvReac Nausea & Verified 10/17/22 15:39 Vomiting Physical Exam Vitals: Vital Signs Temp Pulse Pulse Resp BP BP Pulse Ox 10/18/22 08:00 71 16 10/18/22 07:25 98.1 F 71 16 158/83 93 L 10/18/22 02:36 98.0 F 70 15 135/77 96 10/17/22 18:57 97.8 F 76 16 166/81 94 L 10/17/22 18:39 97.6 F 97 16 155/92 96 10/17/22 13:43 98 F 95 16 102/68 95 Intake and Output 10/17/22 10/18/22 10/18/22 22:59 06:59 14:59 Intake Total 118 Output Total 0 0 Balance 0 0 118 Intake: Oral 118 Output: Emesis 0 0 Other: Voiding Method Toilet # Voids 1 1 Weight 39.463 kg 39.463 kg PHYSICAL EXAMINATION: GENERAL: The patient is alert and oriented x3, not in any acute distress. Well developed, well nourished. HEENT: Pupils are round and equally reacting to light. EOMI. No scleral icterus. No conjunctival pallor. Normocephalic, atraumatic. No pharyngeal erythema. No thyromegaly. CARDIOVASCULAR: S1 and S2 present. No murmurs, rubs, or gallops. PULMONARY: Chest is clear to auscultation, no wheezing or crackles. ABDOMEN: Soft, nontender, nondistended, normoactive bowel sounds. No palpable organomegaly. MUSCULOSKELETAL: No joint swelling or deformity. EXTREMITIES: No cyanosis, clubbing, or pedal edema. NEUROLOGICAL: Gross neurological examination did not reveal any focal deficits. SKIN: No rashes. Results CBC & Chem 7: 10/17/22 15:04 10/18/22 13:15 Labs: Abnormal Lab Results - Last 24 Hours (Table) 10/17/22 10/17/22 Range/Units 15:04 15:04 ESR 87 H (0-20) mm/hr Potassium 3.1 L (3.5-5.1) mmol/L BUN 23 H (7-17) mg/dL C-Reactive Protein 1.5 H (<1.0) mg/dL Thrombosis Risk Factor Assmnt - Choose All That Apply Each Risk Factor Represents 2 Points: Age 61-74 years Thrombosis Risk Factor Assessment Total Risk Factor Score: 2 Thrombosis Risk Factor Assessment Level: Low Risk Assessment and Plan Assessment: 1. Recurrent/intractable headaches - Sed rate is elevated at 87 with CRP of 1.5 - Patient has been placed on prednisone 40 mg daily along with Toradol 15 mg every 6 hours when necessary; [place] 5 mg every 6 hours when necessary is added - Vascular surgery is consulted for further evaluation to rule out temporal arteritis 2. Hypertension; amlodipine 5 mg daily 3. Hyperlipidemia; Lipitor 20 mg by mouth daily at bedtime 4. COPD; not in exacerbation; patient is currently not on any inhaler therapy 5. Depression/insomnia; patient takes melatonin 10 mg daily at bedtime, Zoloft 75 mg daily and trazodone 150 mg daily at bedtime 6. Coronary artery disease; stable; patient is on aspirin and statins DVT prophylaxis; SCDs CODE STATUS; full code
[2022-10-18] MEDS: traZODone HCL 50 MG TAB PO SCH (20:49)
[2022-10-18] MEDS: ATORVASTATIN 20 MG TAB PO SCH (20:49)
[2022-10-18] MEDS: MELATONIN 5 MG TABLET PO SCH (20:49)
[2022-10-19] MEDS: KETOROLAC 15 MG/ML 1 ML VIAL IVP PRN ×4 (01:24→20:25)
[2022-10-19] MEDS: HYDROcodone/APAP 5-325MG 1 EACH TAB PO PRN ×4 (01:24→20:25)
[2022-10-19] MEDS: PANTOPRAZOLE 40 MG TABLET PO SCH (08:31)
[2022-10-19] MEDS: predniSONE 20 MG TAB PO SCH (08:31)
[2022-10-19] MEDS: amLODIPine 5 MG TAB PO SCH (08:31)
[2022-10-19] MEDS: SERTRALINE 25 MG TAB PO SCH (08:32)
[2022-10-19] MEDS: ASPIRIN-ACET-CAFF 250-250-65MG 1 EACH TAB PO SCH ×2 (08:32→19:10)
[2022-10-19 09:43] LABS: Basophils # (A) 0.03 X 10*3/uL (0.00-0.10); Basophils % (A) 0.2 %; Eosinophils # (A) 0 X 10*3/uL (0.04-0.35); Eosinophils % (A) 0 %; HCT 33.1 % (37.2-46.3); HGB 10.7 g/dL (12.0-15.0); Immature Grans, Automated 0.5 %; Lymphocytes # (A) 3.02 X 10*3/uL (0.90-5.00); Lymphocytes % (A) 15.6 %; MCH 29.2 pg (27.0-32.0); MCHC 32.3 g/dL (32.0-37.0); MCV 90.4 fL (80.0-97.0); Mean Platelet Volume 9.8 fL (9.5-12.2); Monocytes # (A) 0.98 X 10*3/uL (0.20-1.00); Monocytes % (A) 5.1 %; NRBC Per 100 WBC 0 /100 WBCS (0.0-0.0); Neutrophils # (A) 15.24 X 10*3/uL (1.80-7.70); Neutrophils % (A) 78.6 %; Platelet Count 363 X 10*3/uL (140-440); RBC 3.66 X 10*6/uL (4.10-5.20); RDW 15.7 % (11.5-14.5); WBC 19.37 X 10*3/uL (4.50-10.00)
[2022-10-19 10:57] LABS: Erythrocyte Sedimentation Rate 58 mm/Hr (0-30)
[2022-10-19 13:49] LABS: African American GFR (CKD) 72.3 (60.0-200.0); Anion Gap 12.5 mmol/L (10.00-18.00); BUN/Creat Ratio 29.95 Ratio (12.00-20.00); Blood Urea Nitrogen 28.3 mg/dL (9.0-27.0); C Reactive Protein 0.8 mg/dL (0.00-0.80); Calcium 9.4 mg/dL (8.7-10.3); Carbon Dioxide 26.6 mmol/L (20.0-27.5); Non-African American GFR(CKD) 62.4 (60.0-200.0); Potassium 3.7 mmol/L (3.5-5.5)
--- NOTE | 2022-10-19 19:04 | P.PN ---
Subjective Progress Note Date: 10/19/22 67-year-old female that presents to the emergency room after being sent by her PCP Dr. Causey for evaluation. Family at bedside states that her labs are elevated but unclear which labs. States that she was having this right-sided earache and jaw pain for over a month. Denies any fevers. No nausea vomiting or diarrhea. No known sick contacts. No visual changes. Patient was sent by primary care doctor for evaluation of right ear and jaw pain. No visual changes. Sed rate was elevated at office yesterday 110. Patient does report History of coronary artery disease, COPD, fibromyalgia, hypertension, hyperlipidemia, degenerative disc disease, chronic back pain with scoliosis Surgical history, cardiac catheterization, multiple injections, hysterectomy Patient is a daily smoker, one pack a day Patient complains of 8/10 pain, travels from right jehovah's witness and down into the right ear and jaw. Denies any vision changes. CT of the brain without contrast interpreted as no acute intracranial process. Temporomandibular joints appeared grossly symmetric. Labs show no evidence of leukocytosis Today ESR 87 was 110 in the office yesterday. CRP 1.5. Patient was given Decadron and Benadryl with complete relief of her discomfort. Objective - Vital Signs Vital signs: Vital Signs Temp 98 F 10/19/22 07:00 Pulse 64 10/19/22 07:00 Resp 16 10/19/22 07:00 BP 146/80 10/19/22 07:00 Pulse Ox 97 10/19/22 07:00 FiO2 Intake & Output 10/18/22 10/19/22 10/19/22 18:59 06:59 18:59 Intake Total 353 210 Balance 353 210 Weight 39.463 kg Intake: Oral 353 210 Other: Voiding Method Toilet Toilet # Voids 3 1 - Exam GENERAL: The patient is alert and oriented x3, not in any acute distress. Well developed, well nourished. HEENT: Pupils are round and equally reacting to light. EOMI. No scleral icterus. No conjunctival pallor. Normocephalic, atraumatic. No pharyngeal erythema. No thyromegaly. CARDIOVASCULAR: S1 and S2 present. No murmurs, rubs, or gallops. PULMONARY: Chest is clear to auscultation, no wheezing or crackles. ABDOMEN: Soft, nontender, nondistended, normoactive bowel sounds. No palpable organomegaly. MUSCULOSKELETAL: No joint swelling or deformity. EXTREMITIES: No cyanosis, clubbing, or pedal edema. NEUROLOGICAL: Gross neurological examination did not reveal any focal deficits. SKIN: No rashes. - Labs CBC & Chem 7: 10/19/22 06:15 10/19/22 06:15 Labs: Abnormal Lab Results - Last 24 Hours (Table) 10/18/22 10/19/22 10/19/22 Range/Units 13:15 06:15 06:15 WBC 19.37 H (4.50-10.00) X 10*3/uL RBC 3.66 L (4.10-5.20) X 10*6/uL Hgb 10.7 L (12.0-15.0) g/dL Hct 33.1 L (37.2-46.3) % RDW 15.7 H (11.5-14.5) % Immature Gran # 0.10 H (0.00-0.04) X 10*3/uL Neutrophils # 15.24 H (1.80-7.70) X 10*3/uL Eosinophils # 0 L (0.04-0.35) X 10*3/uL ESR 81 H 58 H (0-20) mm/hr BUN 28.3 H (9.0-27.0) mg/dL BUN/Creatinine Ratio 29.95 H (12.00-20.00) Ratio Assessment and Plan Assessment: 1. Recurrent/intractable headaches - Sed rate is elevated at 87 with CRP of 1.5 - Patient has been placed on prednisone 40 mg daily along with Toradol 15 mg every 6 hours when necessary; [place] 5 mg every 6 hours when necessary is added - Vascular surgery is consulted for further evaluation to rule out temporal arteritis 2. Hypertension; amlodipine 5 mg daily 3. Hyperlipidemia; Lipitor 20 mg by mouth daily at bedtime 4. COPD; not in exacerbation; patient is currently not on any inhaler therapy 5. Depression/insomnia; patient takes melatonin 10 mg daily at bedtime, Zoloft 75 mg daily and trazodone 150 mg daily at bedtime 6. Coronary artery disease; stable; patient is on aspirin and statins DVT prophylaxis; SCDs CODE STATUS; full code
[2022-10-19] MEDS: ATORVASTATIN 20 MG TAB PO SCH (20:25)
[2022-10-19] MEDS: MELATONIN 5 MG TABLET PO SCH (20:25)
[2022-10-19] MEDS: traZODone HCL 50 MG TAB PO SCH (20:25)
[2022-10-20] MEDS: KETOROLAC 15 MG/ML 1 ML VIAL IVP PRN ×3 (06:12→18:39)
[2022-10-20] MEDS: HYDROcodone/APAP 5-325MG 1 EACH TAB PO PRN ×3 (06:12→18:38)
[2022-10-20] MEDS: ASPIRIN-ACET-CAFF 250-250-65MG 1 EACH TAB PO SCH ×2 (08:30→21:31)
[2022-10-20] MEDS: predniSONE 20 MG TAB PO SCH (08:30)
[2022-10-20] MEDS: PANTOPRAZOLE 40 MG TABLET PO SCH (08:30)
[2022-10-20] MEDS: amLODIPine 5 MG TAB PO SCH (08:30)
[2022-10-20] MEDS: SERTRALINE 25 MG TAB PO SCH (08:31)
[2022-10-20 09:58] LABS: African American GFR (CKD) 76.7 (60.0-200.0); Anion Gap 7.1 mmol/L (10.00-18.00); BUN/Creat Ratio 34.33 Ratio (12.00-20.00); Blood Urea Nitrogen 30.9 mg/dL (9.0-27.0); Calcium 9.6 mg/dL (8.7-10.3); Carbon Dioxide 30.9 mmol/L (20.0-27.5); Non-African American GFR(CKD) 66.2 (60.0-200.0)
[2022-10-20] MEDS ORDERED: HYDROmorphone 0.5 MG/0.5 ML SYRINGE IVP STA (10:29)
[2022-10-20] MEDS ORDERED: FAMOTIDINE 20 MG/2 ML VIAL IV ONE (10:56)
[2022-10-20] MEDS ORDERED: diphenhydrAMINE 50 MG/ML 1 ML VIAL IVP ONE (10:56)
[2022-10-20] MEDS ORDERED: methylPREDNISolone SOD SUCCI 125 MG/2 ML VIAL IV ONE (10:56)
--- NOTE | 2022-10-20 10:59 | P.CNNES ---
History of Present Illness Consult date: 10/20/22 Requesting physician: Wilfredo Bryant Reason for Consult: intractable headache History of Present Illness: This is a 67-year-old woman who was sent by her PCP for evaluation because of right sided headache/jaw pain for past 1 month. Neurology is consulted for intractable headache. Patient stated that the she has been having headache for the past 1 month she stated started in right temporal region and would go down to her right jaw right-sided neck going on for 4 weeks. She feels the headache is severe intensity and currently eats 8/10. It's constant, feels like a burning sensation. She does have nausea but denies vomiting. Denies any visual disturbance. She does have photophobia and phonophobia. She feels she has generalized body weakness and denies any focal weakness that she is appreciated. She has been followed up with her primary care regarding this issue and initially she was told probably she has TMJ but then she had a recent labs in the recent labs were remarkable but does not know exactly the what lab was remarkable and was told to come to the emergency department. She denies any history of stroke or seizures. Denies any head trauma. Some of the workup during his hospital visit consisted of: Patient is afebrile during his hospital visit. White blood cell on initial presentation is 8.5K and a repeat is 19.37 but patient has been on steroids. Rest of the chemistry panel presentation is normal. Except for ESR 87 and most recent one is 58. Glucose is 98. CRP is 1.5 and most recent is 0.8. CT of the head is reported as no acute intracranial processes. Temporal mandibular joints appear grossly symmetric. I personally reviewed the CT of the head and I feel like there is no acute subacute ischemia there is no at the proximal hemorrhage. The patient has bilateral mild frontal atrophy. ED team consulted vascular surgery team because of concern of temporal arteritis and that a consult with them regarding temporal artery biopsy Review of Systems Review of system: The 12 point system was reviewed and apparent positive and negative per HPI. Past Medical History Past Medical History: Coronary Artery Disease (CAD), Chest Pain / Angina, COPD, Fibromyalgia, Hyperlipidemia, Hypertension Additional Past Medical History / Comment(s): Chronic back pain, DDD, bulging discs, scoliosis, osteoporosis. History of Any Multi-Drug Resistant Organisms: None Reported Past Surgical History: Breast Surgery, Heart Catheterization With Stent, Hysterectomy, Orthopedic Surgery Additional Past Surgical History / Comment(s): Back injections, L patellar surgery, R carpal tunnel release, L breast benign biopsy, sinus surgery, EGD Past Anesthesia/Blood Transfusion Reactions: No Reported Reaction Date of Last Stent Placement:: 05/10/20 Past Psychological History: Anxiety, Depression Additional Psychological History / Comment(s): Pt resides with her daughter Floridalma. She uses no assistive device. She does not drive, her daughters take her to appointments. She manages her own medication. Daughters to pt are (Arline and Floridalma) Smoking Status: Current every day smoker Past Alcohol Use History: None Reported, Occasional Additional Past Alcohol Use History / Comment(s): Pt started smoking in 1967 and is a 1ppd smoker. Past Drug Use History: None Reported - Past Family History Mother Family Medical History: Cancer Additional Family Medical History / Comment(s): Mother had lupus and TB Father History Unknown: Yes Medications and Allergies Home Medications Medication Instructions Recorded Confirmed Type Sertraline [Zoloft] 75 mg PO DAILY 30 Days tab 04/17/22 10/17/22 Rx traZODone HCL 150 mg PO HS 30 Days tablet 04/17/22 10/17/22 Rx amLODIPine BESYLATE 5 mg PO DAILY 06/21/22 10/17/22 History [id number] 3 tab PO BID 10/17/22 10/17/22 History [Excedrin] Atorvastatin Calcium 20 mg PO HS 10/17/22 10/17/22 History Melatonin 10 mg PO HS 10/17/22 10/17/22 History Omeprazole 40 mg PO DAILY 10/17/22 10/17/22 History Allergies Allergy/AdvReac Type Severity Reaction Status Date / Time ibuprofen AdvReac NIGHTMARES Verified 10/17/22 15:39 Iodinated Contrast Media AdvReac Nausea & Verified 10/17/22 15:39 [Iodinated Contrast Media - Vomiting IV Dye] povidone-iodine AdvReac Nausea & Verified 10/17/22 15:39 [From Betadine] Vomiting soap [From Betadine] AdvReac Nausea & Verified 10/17/22 15:39 Vomiting Physical Examination - Vital Signs Vital Signs: Vital Signs Temp Pulse Resp BP Pulse Ox 10/20/22 07:00 97.7 F 60 16 150/78 94 L 10/20/22 02:00 98.0 F 59 L 16 147/80 95 10/19/22 18:56 97.9 F 74 16 138/64 95 10/19/22 14:12 97.7 F 69 16 133/69 95 Intake and Output 10/19/22 10/20/22 10/20/22 22:59 06:59 14:59 Intake Total 240 Balance 240 Intake: Oral 240 Other: # Voids 2 2 GENERAL: The patient is lying in bed and is in mild acute distress. HENT: Supple. Has tenderness to touch over the right temporal, jaw region to palpation. Has supple neck. CHEST: The heart rate is regular rate rhythm. No murmurs to auscultation. LUNG: Clear to auscultation bilaterally no wheezing noted throughout. Not labored breathing. ABDOMEN/GI: Bowel sounds present in all 4 quadrants. No tenderness to palpation throughout. NEUROLOGICAL: Higher mental function: The patient is awake, alert, oriented to self, place and time. Patient is following commands. No aphasia and no neglect. Cranial nerves: The pupils are round, equal and reactive to light and accommodation. Visual adler are full to confrontation throughout. Extraocular movement is intact no nystagmus is noted. Facial sensation is normal to touch throughout. The facial strength is normal throughout. Hearing is normal bilaterally to hand rub. Tongue is midline and moved [id number] without any difficulty. No dysarthria is noted. Shoulder shrug is normal bilaterally. Motor: Gait is deferred. The strength is right upper and lower extremity is 4+ and right hand youth associate is 5-. Otherwise 5 over 5 throughout left. Normal tone and bulk. Cerebellum: Normal finger to nose bilaterally. Sensation: Sensation is normal to touch throughout. Reflexes (right/left): 1+ throughout. Plantars are mute bilaterally. Results - Laboratory Findings CBC and BMP: 10/19/22 06:15 10/20/22 03:29 Abnormal Lab Findings: Abnormal Labs 10/17/22 10/17/22 10/18/22 15:04 15:04 13:15 WBC RBC Hgb Hct RDW Immature Gran # Neutrophils # Eosinophils # ESR 87 H 81 H Potassium 3.1 L BUN 23 H BUN/Creatinine Ratio Glucose C-Reactive Protein 1.5 H 10/18/22 10/19/22 10/19/22 13:15 06:15 06:15 WBC 19.37 H RBC 3.66 L Hgb 10.7 L Hct 33.1 L RDW 15.7 H Immature Gran # 0.10 H Neutrophils # 15.24 H Eosinophils # 0 L ESR 58 H Potassium BUN 29 H 28.3 H BUN/Creatinine Ratio 29.95 H Glucose 132 H C-Reactive Protein 1.0 H Assessment and Plan Assessment: This is a 67-year-old woman with right temporal headache as well as dropping going to the right side of the neck for the past 4 weeks and her primary care no fighters come to the hospital because of abnormal lab. Right temporal headache/jaw pain radiating to neck region with elevated ESR seems probable suggestive of temporal arteritis. ESR on presentation is 87 but is trending down after steroid use--->58 Right sided weakness (on examination): Rule out any stroke as result of above or mass. Leukocytosis seems reactive to steroids She of coronary artery disease status post stent Hypertension Hyperlipidemia Fibromyalgia Plan: Vascular surgery team is consulted for temporal artery biopsy. They recommended outpatient but I feel to be more preferable to get as an inpatient and I spoke with vascular team (Dr. Loving) and she will attempt to have performed this Friday or Friday. Because of the focal weakness over the right side I ordered MRI of the brain with and without as well as CT angiography of the head and neck. If does have stroke will get rest of stroke work-up and place her on appropriate medications. I ordered TSH level, and CK level Patient is on prednisone 40 mg daily and that is appropriate for her body weight. If patient continues to have headaches and that's not resolving consider getting MRI of the brain with and without to rule out any other central causes. Q4 hours checks Consulted PT and OT We'll defer the rest of the medical management to primary team The plan is discussed with patient and her nurse. Thank you for the consultation. Dr. Thorpe will start neurology service tomorrow a.m. Spent a total of 35 minutes with care. Going over history and going over plan with patient and other provider. Time with Patient: Greater than 30
--- NOTE | 2022-10-20 11:37 | P.PN ---
Subjective Progress Note Date: 10/20/22 Patient seen and examined. Discussion with primary in neurology, they would like to go forward with temporal artery biopsy this admission. Patient would prefer this. Patient is a pleasant cooperative female in no acute distress. Tenderness to touch over the right temporal and dry region. No acute distress otherwise. Normal mood and affect, slightly anxious. Right temporal jaw pain with elevated ESR improving after initiation of steroids r/o temporal arteritis Discussion had with primary and neurology. We'll plan for excisional biopsy of the right temporal artery in the next 24-48 hours pending surgical schedule Objective - Vital Signs Vital signs: Vital Signs Temp 97.7 F 10/20/22 07:00 Pulse 60 10/20/22 07:00 Resp 16 10/20/22 07:00 BP 150/78 10/20/22 07:00 Pulse Ox 94 L 10/20/22 07:00 FiO2 Intake & Output 10/19/22 10/20/22 10/20/22 18:59 06:59 18:59 Intake Total 660 Balance 660 Intake: Oral 660 Other: # Voids 1 2 - Labs CBC & Chem 7: 10/19/22 06:15 10/20/22 03:29 Labs: Abnormal Lab Results - Last 24 Hours (Table) 10/19/22 10/20/22 Range/Units 06:15 03:29 Carbon Dioxide 30.9 H (20.0-27.5) mmol/L Anion Gap 7.10 L (10.00-18.00) mmol/L BUN 28.3 H 30.9 H (9.0-27.0) mg/dL BUN/Creatinine Ratio 29.95 H 34.33 H (12.00-20.00) Ratio
--- NOTE | 2022-10-20 12:30 | CT ---
EXAMINATION TYPE: CT angio head neck DATE OF EXAM: 10/20/2022 HISTORY: Headache and right-sided weakness COMPARISON: None CT DLP: 240.8 mGycm. Automated Exposure Control for Dose Reduction was Utilized. TECHNIQUE: CTA scan of the head and neck is according to protocol. Nonionic IV contrast was utilized . Coronal and sagittal reconstructions the postprocessing was performed. MIPS images and coronal and sagittal reconstructions were obtained. FINDINGS: The brachiocephalic origins are widely patent. There is no significant common carotid stenosis within the neck. There is eccentric plaque the origin s of the internal carotid arteries within the neck bilaterally resulting in a mild 20-30% stenosis on the right and a mild positive moderate 50% stenosis on the left. Intracranially, there is no significant stenosis, segmental occlusion, aneurysm sac or vascular malf ormation. IMPRESSION: Mild to moderate bilateral proximal internal carotid artery stenosis, left greater than right. No oth er significant abnormality seen.
--- NOTE | 2022-10-20 18:17 | P.PN ---
Subjective Progress Note Date: 10/20/22 Principal diagnosis: Recurrent/intractable headaches Hypertension 67-year-old female that presents to the emergency room after being sent by her PCP Dr. Causey for evaluation. Family at bedside states that her labs are elevated but unclear which labs. States that she was having this right-sided earache and jaw pain for over a month. Denies any fevers. No nausea vomiting or diarrhea. No known sick contacts. No visual changes. Patient was sent by primary care doctor for evaluation of right ear and jaw pain. No visual changes. Sed rate was elevated at office yesterday 110. Patient does report History of coronary artery disease, COPD, fibromyalgia, hypertension, hyperlipidemia, degenerative disc disease, chronic back pain with scoliosis Surgical history, cardiac catheterization, multiple injections, hysterectomy Patient is a daily smoker, one pack a day Patient complains of 8/10 pain, travels from right christianity and down into the right ear and jaw. Denies any vision changes. CT of the brain without contrast interpreted as no acute intracranial process. Temporomandibular joints appeared grossly symmetric. Labs show no evidence of leukocytosis Today ESR 87 was 110 in the office yesterday. CRP 1.5. Patient was given Decadron and Benadryl with complete relief of her discomfort. ----- 10/20/2022 Patient reports improvement in headache; she is laying comfortably in bed and watching TV; reports she has gotten used to doing routine activities even with headaches - W shows a sodium of 142, potassium of 4.0, BUN/creatinine of 30.9/0.9; CRP has trended down from 1.5 upon admission down to 0.8 - Patient has been evaluated by vascular surgery and is scheduled for temporal artery biopsy tomorrow morning; patient will be nothing by mouth at midnight Objective - Vital Signs Vital signs: Vital Signs Temp 97.7 F 10/20/22 07:00 Pulse 60 10/20/22 07:00 Resp 16 10/20/22 07:00 BP 150/78 10/20/22 07:00 Pulse Ox 94 L 10/20/22 07:00 FiO2 Intake & Output 10/19/22 10/20/22 10/20/22 18:59 06:59 18:59 Intake Total 660 Balance 660 Intake: Oral 660 Other: # Voids 1 2 - Exam GENERAL: The patient is alert and oriented x3, not in any acute distress. Well developed, well nourished. HEENT: Pupils are round and equally reacting to light. EOMI. No scleral icterus. No conjunctival pallor. Normocephalic, atraumatic. No pharyngeal erythema. No thyromegaly. CARDIOVASCULAR: S1 and S2 present. No murmurs, rubs, or gallops. PULMONARY: Chest is clear to auscultation, no wheezing or crackles. ABDOMEN: Soft, nontender, nondistended, normoactive bowel sounds. No palpable organomegaly. MUSCULOSKELETAL: No joint swelling or deformity. EXTREMITIES: No cyanosis, clubbing, or pedal edema. NEUROLOGICAL: Gross neurological examination did not reveal any focal deficits. SKIN: No rashes. - Labs CBC & Chem 7: 10/19/22 06:15 10/20/22 03:29 Labs: Abnormal Lab Results - Last 24 Hours (Table) 10/19/22 10/20/22 Range/Units 06:15 03:29 Carbon Dioxide 30.9 H (20.0-27.5) mmol/L Anion Gap 7.10 L (10.00-18.00) mmol/L BUN 28.3 H 30.9 H (9.0-27.0) mg/dL BUN/Creatinine Ratio 29.95 H 34.33 H (12.00-20.00) Ratio Assessment and Plan Assessment: 1. Recurrent/intractable headaches - Sed rate is elevated at 87 with CRP of 1.5 - Patient has been placed on prednisone 40 mg daily along with Toradol 15 mg every 6 hours when necessary; [place] 5 mg every 6 hours when necessary is added - Vascular surgery is consulted for further evaluation to rule out temporal arteritis 2. Hypertension; amlodipine 5 mg daily 3. Hyperlipidemia; Lipitor 20 mg by mouth daily at bedtime 4. COPD; not in exacerbation; patient is currently not on any inhaler therapy 5. Depression/insomnia; patient takes melatonin 10 mg daily at bedtime, Zoloft 75 mg daily and trazodone 150 mg daily at bedtime 6. Coronary artery disease; stable; patient is on aspirin and statins DVT prophylaxis; SCDs CODE STATUS; full code
[2022-10-20 21:23] LABS: Creatine Kinase 38 U/L (26-186)
[2022-10-20] MEDS: traZODone HCL 50 MG TAB PO SCH (21:30)
[2022-10-20] MEDS: MELATONIN 5 MG TABLET PO SCH (21:30)
[2022-10-20] MEDS: ATORVASTATIN 20 MG TAB PO SCH (21:30)
[2022-10-21] MEDS: HYDROcodone/APAP 5-325MG 1 EACH TAB PO PRN ×2 (00:49→06:19)
[2022-10-21] MEDS: KETOROLAC 15 MG/ML 1 ML VIAL IVP PRN ×2 (00:50→06:19)
[2022-10-21] MEDS: PANTOPRAZOLE 40 MG TABLET PO SCH (09:39)
[2022-10-21] MEDS: amLODIPine 5 MG TAB PO SCH (09:39)
[2022-10-21] MEDS: predniSONE 20 MG TAB PO SCH (09:39)
[2022-10-21] MEDS: SERTRALINE 25 MG TAB PO SCH (09:39)
[2022-10-21] MEDS ORDERED: amLODIPine 5 MG TAB PO STA (09:57)
[2022-10-21] MEDS: HYDROcodone/APAP 7.5-325MG 1 EACH TAB PO PRN ×3 (10:21→21:58)
--- NOTE | 2022-10-21 10:27 | P.PN ---
Subjective Progress Note Date: 10/21/22 Patient initially seen by Dr. Kam Faulkner. Please refer to his note for details. Patient is a 67-year-old female with right temporal headache/jaw pain/facial pain with elevated ESR. The right facial pain, and right temporal headache started on 10/05/2022, when she woke up with a headache. She also had complete loss of hearing in the right ear. This hearing loss lasted for 2 days, but now she has constant static in the right ear. Concern for temporal arteritis. Patient is on steroids orally. Patient undergoing temporal artery biopsy today. Patient states that her headache is 10/10. On day 1 of steroids, but when down to 8/10, but then it came back up and is 10/10. Patient denies any fever, denies any weight loss. She does get sometimes burning inside the head and she sweats. She felt it was her hot flashes. Patient states that she has history of chronic daily headaches for last 2 years. The headache lasts all day long. The headaches used to be bitemporal and also involves back of the head. She has chronic daily headaches for last 2 years. The above headache and facial pain is new. Patient states she has a "hole" in the right eye, doughnut-shaped. Objective - Vital Signs Vital signs: Vital Signs Temp 97.9 F 10/21/22 07:00 Pulse 63 10/21/22 07:00 Resp 17 10/21/22 07:00 BP 147/80 10/21/22 07:00 Pulse Ox 97 10/21/22 07:00 FiO2 Intake & Output 10/20/22 10/21/22 10/21/22 18:59 06:59 18:59 Intake Total 840 Balance 840 Intake: Oral 840 Other: Voiding Method Toilet # Voids 2 2 - Exam Patient is an elderly female, in no acute distress. Patient is alert awake oriented to time place and person. Speech and language functions are normal. Patient can name and repeat very well. No aphasia or dysarthria. Attention, concentration and fund of knowledge is adequate. On cranial nerve examination, pupils are equal, round and reacting to light, visual adler are full on confrontation, with no neglect on double simultaneous stimulation. Extraocular muscles are intact with no nystagmus. Face is symmetric, tongue protrudes to the midline. Palatal elevation and sensation normal. Her hearing is decreased significantly bilaterally for finger rubbing, almost appears equal bilaterally. Hearing appears fine for routine conversation. The shoulder shrug is normal, facial sensation normal. On muscle strength testing, there is no pronator drift. The strength is (right/left) deltoid 5/5, biceps 5/5, triceps 5/5, greensman 4+/5-, hip flexion 4/4+, ankle dorsiflexion 5/5. Sensory to touch is equal with no neglect on double simultaneous stimulation. Cerebellar function showed no ataxia for [id number] testing. No dysdiadochokinesia. No ataxia for [id number] testing on either side. Tone and bulk of muscles normal. Gait deferred.. On general examination, there is no carotid bruit or murmur, S1-S2 audible. Chest is clear on consultation. Abdomen is soft nontender. No organomegaly, bowel sounds present. Peripheral pulses are present. No edema. - Labs CBC & Chem 7: 10/19/22 06:15 10/20/22 03:29 Labs: Abnormal Lab Results - Last 24 Hours (Table) 10/20/22 10/20/22 Range/Units 03:29 03:29 ESR 62 H (0-20) mm/hr Carbon Dioxide 30.9 H (20.0-27.5) mmol/L Anion Gap 7.10 L (10.00-18.00) mmol/L BUN 30.9 H (9.0-27.0) mg/dL BUN/Creatinine Ratio 34.33 H (12.00-20.00) Ratio Assessment and Plan Assessment: This is a 67-year-old woman with right temporal headache as well as dropping going to the right side of the neck for the past 4 weeks and her primary care no fighters come to the hospital because of abnormal lab. Right temporal headache/jaw pain radiating to neck region with elevated ESR seems probable suggestive of temporal arteritis. ESR on presentation is 87 but is trending down after steroid use--->58 Right sided weakness (on examination): Rule out any stroke as result of above or mass. Leukocytosis seems reactive to steroids She of coronary artery disease status post stent Hypertension Hyperlipidemia Fibromyalgia Plan: Vascular surgery team is consulted for temporal artery biopsy, undergoing today or tomorrow. Because of the focal weakness over the right side, Dr. Faulkner ordered MRI of the brain with and without. CTA of head and neck revealed mild to moderate bilateral proximal internal carotid artery stenosis, left greater than right. No other significant abnormalities seen. TSH 0.999, and CK 38 Patient is on prednisone 40 mg daily and that is appropriate for her body weight. Q4 hours checks Consulted PT and OT We'll defer the rest of the medical management to primary team Neurology will follow.
[2022-10-21] MEDS: ASPIRIN-ACET-CAFF 250-250-65MG 1 EACH TAB PO SCH ×2 (10:55→21:13)
--- NOTE | 2022-10-21 12:09 | P.PN ---
Subjective Progress Note Date: 10/21/22 Principal diagnosis: Headache Patient seen and examined earlier today with complaints of continued headache on the right side of her head and face. Patient was tentatively scheduled for a right temporal artery biopsy today however that will need to be rescheduled due to OR schedule. Patient denies any visual changes. Objective - Vital Signs Vital signs: Vital Signs Temp 97.9 F 10/21/22 07:00 Pulse 63 10/21/22 07:00 Resp 17 10/21/22 10:23 BP 147/80 10/21/22 07:00 Pulse Ox 97 10/21/22 07:00 FiO2 Intake & Output 10/20/22 10/21/22 10/21/22 18:59 06:59 18:59 Intake Total 840 Balance 840 Intake: Oral 840 Other: Voiding Method Toilet Toilet # Voids 2 2 - Exam General appearance: The patient is alert, oriented, appears in no acute distress. HET: Head is normocephalic and atraumatic. Pupils are equal and reactive. Neck: Supple. Heart: Regular. Lungs: Equal expansion, normal respiratory effort. Abdomen: Soft, nontender, nondistended. Extremities: Normal skin color and turgor. Neurological: No focal deficits. Strength and sensation are grossly intact. - Labs CBC & Chem 7: 10/19/22 06:15 10/20/22 03:29 Labs: Abnormal Lab Results - Last 24 Hours (Table) 10/20/22 Range/Units 03:29 ESR 62 H (0-20) mm/hr Assessment and Plan Assessment: 1. Headache 2. Right temporal jaw pain with elevated ESR Plan: 1. Continue medical management 2. Tentative plan to reschedule for tomorrow Excisional biopsy of right temporal artery Thank you for this consultation, we'll continue to follow. The impression and plan of care has been dictated as directed. Dr. Glass I performed a history and examination of this patient, discussed the same with the dictator. I agree with the dictator's note ,documented as a scribe. Any additional findings or plans will be noted.
--- NOTE | 2022-10-21 12:47 | P.PN ---
Subjective From the records 67-year-old female that presents to the emergency room after being sent by her PCP Dr. Causey for evaluation. Family at bedside states that her labs are elevated but unclear which labs. States that she was having this right-sided ea rache and jaw pain for over a month. Denies any fevers. No nausea vomiting or diarrhea. No known sick contacts. No visual changes. Patient was sent by primary care doctor for evaluation of right ear and jaw pain. No visual changes. Sed rate was elevated at office yesterday 110. Patient does report History of coronary artery disease, COPD, fibromyalgia, hypertension, hyperlipidemia, degenerative disc disease, chronic back pain with scoliosis Surgical history, cardiac catheterization, multiple injections, hysterectomy Patient is a daily smoker, one pack a day Patient complains of 8/10 pain, travels from right hoahaoism and down into the right ear and jaw. Denies any vision changes. CT of the brain without contrast interpreted as no acute intracranial process. Temporomandibular joints appeared grossly symmetric. Labs show no evidence of leukocytosis Today ESR 87 was 110 in the office yesterday. CRP 1.5. Patient was given Decadron and Benadryl with complete relief of her discomfort. ----- 10/20/2022 Patient reports improvement in headache; she is laying comfortably in bed and watching TV; reports she has gotten used to doing routine activities even with headaches - W shows a sodium of 142, potassium of 4.0, BUN/creatinine of 30.9/0.9; CRP has trended down from 1.5 upon admission down to 0.8 - Patient has been evaluated by vascular surgery and is scheduled for temporal artery biopsy tomorrow morning; patient will be nothing by mouth at midnight I am Resuming the care of the patient today 10/21/2022 This is a pleasant 67 years old female with multiple problems presents with ongoing headache and that the facial pain, she says that she has this problem since February last year, at that time she was doing well, check evaluation for her eyeglasses and she was instructed to follow up with [employer] because they noticed there is a hole in her arteries, as patient states, she called ophthalmology office and she has been told that he going to call her back but shelli shepadr contacted her. Patient did not follow with [employer] anyway. However her PCP sent her to the hospital this time because of ongoing right- sided headache with right facial pain but no overt visual changes and there was suspicion of temporal arteritis, been evaluated by neurologist and vascular surgery team and in view of her elevated ESR patient was started on prednisone 40 mg daily with plan for temporal artery biopsy tomorrow. Patient denies specific sinus symptoms, no weakness or numbness. She denies worsening blurred vision or double vision however stopped improved today and she still complaining of from headache requesting to increase her pain medication from [place] 5 up to 7.5 mg. Also we are going to consult ophthalmology for further evaluation Objective - Vital Signs Vital signs: Vital Signs Temp 97.9 F 10/21/22 07:00 Pulse 63 10/21/22 07:00 Resp 17 10/21/22 10:23 BP 147/80 10/21/22 07:00 Pulse Ox 97 10/21/22 07:00 FiO2 Intake & Output 10/20/22 10/21/22 10/21/22 18:59 06:59 18:59 Intake Total 840 Balance 840 Intake: Oral 840 Other: Voiding Method Toilet Toilet # Voids 2 2 - Exam GENERAL: The patient is alert and oriented x3, not in any acute distress. Well developed, well nourished. HEENT: Pupils are round and equally reacting to light. EOMI. No scleral icterus. No conjunctival pallor. Normocephalic, atraumatic. No pharyngeal erythema. No thyromegaly. CARDIOVASCULAR: S1 and S2 present. No murmurs, rubs, or gallops. PULMONARY: Chest is clear to auscultation, no wheezing or crackles. ABDOMEN: Soft, nontender, nondistended, normoactive bowel sounds. No palpable organomegaly. MUSCULOSKELETAL: No joint swelling or deformity. EXTREMITIES: No cyanosis, clubbing, or pedal edema. NEUROLOGICAL: Gross neurological examination did not reveal any focal deficits. SKIN: No rashes. no petechiae. - Labs CBC & Chem 7: 10/19/22 06:15 10/20/22 03:29 Labs: Abnormal Lab Results - Last 24 Hours (Table) 10/20/22 Range/Units 03:29 ESR 62 H (0-20) mm/hr Assessment and Plan Assessment: Diagnoses: 1. Recurrent/intractable headaches - Sed rate is elevated and CRP - Patient has been placed on prednisone 40 mg daily along with Toradol 15 mg every 6 hours when necessary; [place] 7.5 mg every 6 hours when necessary is added - Vascular surgery is consulted for further evaluation to rule out temporal arteritis - Consult ophthalmology service 2. Hypertension; amlodipine 5 mg daily 3. Hyperlipidemia; Lipitor 20 mg by mouth daily at bedtime 4. COPD; not in exacerbation; patient is currently not on any inhaler therapy 5. Depression/insomnia; patient takes melatonin 10 mg daily at bedtime, Zoloft 75 mg daily and trazodone 150 mg daily at bedtime 6. Coronary artery disease; stable; patient is on aspirin and statins DVT prophylaxis; SCDs
[2022-10-21] MEDS ORDERED: LORazepam 2 MG/ML INJ IV ONE (16:30)
--- NOTE | 2022-10-21 18:30 | MR ---
EXAMINATION TYPE: MR brain wo/w con DATE OF EXAM: 10/21/2022 6:12 PM CLINICAL INDICATION:Female, 67 years old with history of right sided weakness; COMPARISON: CT 10/20/2022 and 10/17/2022 TECHNIQUE: Multi planar, multi sequence imaging was performed through the brain including: T1, T2, In version recovery, susceptibility weighted imaging and gradient echo imaging and Diffusion weighted im aging. The patient was then given intravenous contrast and multi planar, T1 fat-saturation images wer e obtained. IV Contrast: 4 cc Gadavist FINDINGS: The armstrong-white junctions, ventricular system, basal cisterns appear unremarkable. Diffusion-weighted imaging shows no evidence of restricted diffusion to suggest acute/subacute infarct. Intracranial art erial flow voids are maintained. Midline structures show no abnormality. Scattered foci of high T2 si gnal intensity are seen within the periventricular white matter. The susceptibility weighted images d o not reveal any evidence for micro-hemorrhage. After administration of gadolinium, no abnormal enhan cement is seen. The bone marrow signal is within normal limits. Paranasal sinuses and mastoid air cells: Mild scattered paranasal sinus disease, most pronounced in t he sphenoid sinuses.. Visualized orbits: Orbital contents are intact. IMPRESSION: 1. No evidence of intracranial mass, acute/subacute infarct, or abnormal enhancement. 2. Nonspecific white matter changes, likely related to small vessel ischemic disease
[2022-10-21] MEDS: MELATONIN 5 MG TABLET PO SCH (21:13)
[2022-10-21] MEDS: traZODone HCL 50 MG TAB PO SCH (21:13)
[2022-10-21] MEDS: ATORVASTATIN 20 MG TAB PO SCH (21:14)
--- NOTE | 2022-10-21 22:08 | CONS ---
CONSULTATION HISTORY: This is a 67-year-old white female, who presented to the emergency room after being sent in by her primary care physician for evaluation. The patient stated that she was experiencing pain in the right ear and jaw area with radiation up into her episcopalian area of the right side. She denies any visual problems currently. She is currently resting in bed and states that her pain has significantly improved since being admitted to the hospital and started on systemic steroids. PHYSICAL EXAMINATION: Visual acuity measured 20/30 with correction bilaterally. The pupils were equal and reactive to light. There was no afferent defect in either eye. Extraocular movements were full in all gaze positions. On penlight exam, the lids were normal. The conjunctiva was quiet. Both corneas were clear. The anterior chambers were well formed. The irises were normal, and there appeared to be mild cataract changes bilaterally. Fundus exam revealed normal-appearing maculae vessels and discs. LABORATORY DATA: Labs were drawn upon admission, and of note, there was an elevated sedimentation rate of 87 and then remeasured at 81 on followup. The C-reactive protein was also elevated at 1.5. IMPRESSION AND PLAN: Right temporal pain. I agree that this patient has symptoms suggestive of temporal arteritis. It is my understanding that Vascular Surgery has been consulted and planned to perform a temporal artery biopsy of the right side. Thus far, I see no evidence of ocular involvement in this patient and would agree with the current management. I would be happy to see her on followup upon discharge from the hospital. MMIVANA / AVE: [id number] /
[2022-10-22] MEDS: HYDROcodone/APAP 7.5-325MG 1 EACH TAB PO PRN ×3 (03:48→15:24)
[2022-10-22] MEDS: predniSONE 20 MG TAB PO SCH (09:01)
[2022-10-22] MEDS: amLODIPine 10 MG TAB PO SCH (09:01)
[2022-10-22] MEDS: ASPIRIN-ACET-CAFF 250-250-65MG 1 EACH TAB PO SCH ×2 (09:02→17:18)
[2022-10-22] MEDS: PANTOPRAZOLE 40 MG TABLET PO SCH (09:02)
[2022-10-22] MEDS: SERTRALINE 25 MG TAB PO SCH (09:02)
[2022-10-22] MEDS ORDERED: hydrALAZINE HCL 25 MG TAB PO PRN (09:24)
--- NOTE | 2022-10-22 11:07 | P.PN ---
Subjective From the records 67-year-old female that presents to the emergency room after being sent by her PCP Dr. Causey for evaluation. Family at bedside states that her labs are elevated but unclear which labs. States that she was having this right-sided ea rache and jaw pain for over a month. Denies any fevers. No nausea vomiting or diarrhea. No known sick contacts. No visual changes. Patient was sent by primary care doctor for evaluation of right ear and jaw pain. No visual changes. Sed rate was elevated at office yesterday 110. Patient does report History of coronary artery disease, COPD, fibromyalgia, hypertension, hyperlipidemia, degenerative disc disease, chronic back pain with scoliosis Surgical history, cardiac catheterization, multiple injections, hysterectomy Patient is a daily smoker, one pack a day Patient complains of 8/10 pain, travels from right druze and down into the right ear and jaw. Denies any vision changes. CT of the brain without contrast interpreted as no acute intracranial process. Temporomandibular joints appeared grossly symmetric. Labs show no evidence of leukocytosis Today ESR 87 was 110 in the office yesterday. CRP 1.5. Patient was given Decadron and Benadryl with complete relief of her discomfort. ----- 10/20/2022 Patient reports improvement in headache; she is laying comfortably in bed and watching TV; reports she has gotten used to doing routine activities even with headaches - W shows a sodium of 142, potassium of 4.0, BUN/creatinine of 30.9/0.9; CRP has trended down from 1.5 upon admission down to 0.8 - Patient has been evaluated by vascular surgery and is scheduled for temporal artery biopsy tomorrow morning; patient will be nothing by mouth at midnight I am Resuming the care of the patient today 10/21/2022 This is a pleasant 67 years old female with multiple problems presents with ongoing headache and that the facial pain, she says that she has this problem since February last year, at that time she was doing well, check evaluation for her eyeglasses and she was instructed to follow up with [employer] because they noticed there is a hole in her arteries, as patient states, she called ophthalmology office and she has been told that he going to call her back but shelli shepard contacted her. Patient did not follow with [employer] anyway. However her PCP sent her to the hospital this time because of ongoing right- sided headache with right facial pain but no overt visual changes and there was suspicion of temporal arteritis, been evaluated by neurologist and vascular surgery team and in view of her elevated ESR patient was started on prednisone 40 mg daily with plan for temporal artery biopsy tomorrow. Patient denies specific sinus symptoms, no weakness or numbness. She denies worsening blurred vision or double vision however stopped improved today and she still complaining of from headache requesting to increase her pain medication from [place] 5 up to 7.5 mg. Also we are going to consult ophthalmology for further evaluation 10/22/2022 Patient headache starting improved today after increasing her [place] to 7.5 yesterday. MRI of the brain is negative for acute process, no stroke Ophthalmology input is appreciated, no primary ophthalmological disease might explain patient's symptoms Patient remains on prednisone 40 mg and blood pressures monitored closely and medication adjusted accordingly Vascular surgeon on the case with the plan for temporal artery biopsy. Objective - Vital Signs Vital signs: Vital Signs Temp 98.3 F 10/22/22 07:03 Pulse 71 10/22/22 07:03 Resp 16 10/22/22 07:03 BP 168/88 10/22/22 09:11 Pulse Ox 93 L 10/22/22 07:03 FiO2 Intake & Output 10/21/22 10/22/22 10/22/22 18:59 06:59 18:59 Intake Total 236 Balance 236 Intake: Oral 236 Other: Voiding Method Toilet Toilet # Voids 2 3 - Exam GENERAL: The patient is alert and oriented x3, not in any acute distress. Well developed, well nourished. HEENT: Pupils are round and equally reacting to light. EOMI. No scleral icterus. No conjunctival pallor. Normocephalic, atraumatic. No pharyngeal erythema. No thyromegaly. CARDIOVASCULAR: S1 and S2 present. No murmurs, rubs, or gallops. PULMONARY: Chest is clear to auscultation, no wheezing or crackles. ABDOMEN: Soft, nontender, nondistended, normoactive bowel sounds. No palpable organomegaly. MUSCULOSKELETAL: No joint swelling or deformity. EXTREMITIES: No cyanosis, clubbing, or pedal edema. NEUROLOGICAL: Gross neurological examination did not reveal any focal deficits. SKIN: No rashes. no petechiae. - Labs CBC & Chem 7: 10/19/22 06:15 10/20/22 03:29 Assessment and Plan Assessment: Diagnoses: 1. Recurrent/intractable headaches - Sed rate is elevated and CRP - Patient has been placed on prednisone 40 mg daily along with Toradol 15 mg every 6 hours when necessary; [place] 7.5 mg every 6 hours when necessary is added - Vascular surgery is consulted for further evaluation to rule out temporal arteritis - Consult ophthalmology service 2. Hypertension; amlodipine 5 mg daily 3. Hyperlipidemia; Lipitor 20 mg by mouth daily at bedtime 4. COPD; not in exacerbation; patient is currently not on any inhaler therapy 5. Depression/insomnia; patient takes melatonin 10 mg daily at bedtime, Zoloft 75 mg daily and trazodone 150 mg daily at bedtime 6. Coronary artery disease; stable; patient is on aspirin and statins DVT prophylaxis; SCDs
--- NOTE | 2022-10-22 11:36 | P.PN ---
Subjective Progress Note Date: 10/22/22 Principal diagnosis: Headache Patient seen and examined earlier today with complaints of continued headache on the right side of her head and face. He was seen by Dr. Jones from ophthalmology yesterday. He agreed that patient likely with symptoms of temporal arteritis. Patient is scheduled to undergo temporal artery biopsy tomorrow. Objective - Vital Signs Vital signs: Vital Signs Temp 98.3 F 10/22/22 07:03 Pulse 71 10/22/22 07:03 Resp 16 10/22/22 07:03 BP 168/88 10/22/22 09:11 Pulse Ox 93 L 10/22/22 07:03 FiO2 Intake & Output 10/21/22 10/22/22 10/22/22 18:59 06:59 18:59 Intake Total 236 Balance 236 Intake: Oral 236 Other: Voiding Method Toilet Toilet # Voids 2 3 - Exam General appearance: The patient is alert, oriented, appears in no acute distress. HET: Head is normocephalic and atraumatic. Pupils are equal and reactive. Neck: Supple. Heart: Regular. Lungs: Equal expansion, normal respiratory effort. Abdomen: Soft, nontender, nondistended. Extremities: Normal skin color and turgor. Neurological: No focal deficits. Strength and sensation are grossly intact. - Labs CBC & Chem 7: 10/19/22 06:15 10/20/22 03:29 Assessment and Plan Assessment: 1. Headache 2. Right temporal jaw pain with elevated ESR Plan: 1. Continue medical management 2. Patient is scheduled for right temporal artery biopsy tomorrow. 3. Hold any anticoagulation. 4. Nothing by mouth after midnight. Thank you for this consultation, we'll continue to follow. The impression and plan of care has been dictated as directed. Dr. Nunez I performed a history and examination of this patient, discussed the same with the dictator. I agree with the dictator's note ,documented as a scribe. Any additional findings or plans will be noted.
[2022-10-22] MEDS: LACTATED RINGERS 1,000 ML IV SCH (20:29)
[2022-10-22] MEDS: traZODone HCL 50 MG TAB PO SCH (20:29)
[2022-10-22] MEDS: ATORVASTATIN 20 MG TAB PO SCH (20:29)
[2022-10-22] MEDS: MELATONIN 5 MG TABLET PO SCH (20:29)
[2022-10-23] MEDS: ASPIRIN-ACET-CAFF 250-250-65MG 1 EACH TAB PO SCH ×3 (06:50→16:14)
[2022-10-23] MEDS ORDERED: fentaNYL (PF) 50 MCG/ML 2 ML AMP IV PRN (07:00)
[2022-10-23] MEDS ORDERED: ONDANSETRON 4 MG/2 ML VIAL IVP PRN (07:00)
[2022-10-23] MEDS: HYDROcodone/APAP 7.5-325MG 1 EACH TAB PO PRN ×3 (07:47→22:37)
[2022-10-23] MEDS: PANTOPRAZOLE 40 MG TABLET PO SCH (07:47)
[2022-10-23] MEDS: predniSONE 20 MG TAB PO SCH (07:48)
[2022-10-23] MEDS: amLODIPine 10 MG TAB PO SCH (07:48)
[2022-10-23] MEDS: SERTRALINE 25 MG TAB PO SCH (07:49)
--- NOTE | 2022-10-23 10:43 | P.PN ---
Subjective Progress Note Date: 10/22/22 10/22/2022: Patient was seen for a follow-up. Patient states she is still having headache, rates 10/10 pointing to the right holiness and right facial region. She states that she feels tired. No pain on the left side of her head. Her hearing is still decreased on the right side with static feeling on the right side. No new concerns. 10/21/2022: Patient initially seen by Dr. Kam Faulkner. Please refer to his note for details. Patient is a 67-year-old female with right temporal headache/jaw pain/facial pain with elevated ESR. The right facial pain, and right temporal headache started on 10/05/2022, when she woke up with a headache. She also had complete loss of hearing in the right ear. This hearing loss lasted for 2 days, but now she has constant static in the right ear. Concern for temporal arteritis. Patient is on steroids orally. Patient undergoing temporal artery biopsy today. Patient states that her headache is 10/10. On day 1 of steroids, but when down to 8/10, but then it came back up and is 10/10. Patient denies any fever, denies any weight loss. She does get sometimes burning inside the head and she sweats. She felt it was her hot flashes. Patient states that she has history of chronic daily headaches for last 2 years. The headache lasts all day long. The headaches used to be bitemporal and also involves back of the head. She has chronic daily headaches for last 2 years. The above headache and facial pain is new. Patient states she has a "hole" in the right eye, doughnut-shaped. Objective - Vital Signs Vital signs: Vital Signs Temp 98.3 F 10/22/22 07:03 Pulse 71 10/22/22 07:03 Resp 16 10/22/22 07:03 BP 168/88 10/22/22 09:11 Pulse Ox 93 L 10/22/22 07:03 FiO2 Intake & Output 10/21/22 10/22/22 10/22/22 18:59 06:59 18:59 Intake Total 236 Balance 236 Intake: Oral 236 Other: Voiding Method Toilet Toilet # Voids 2 3 - Exam Patient is an elderly female, in no acute distress. Patient is alert awake oriented to time place and person. Speech and language functions are normal. Patient can name and repeat very well. No aphasia or dysarthria. Attention, concentration and fund of knowledge is adequate. On cranial nerve examination, pupils are equal, round and reacting to light, visual adler are full on confrontation, with no neglect on double simultaneous stimulation. Extraocular muscles are intact with no nystagmus. Face is symmet bindu, tongue protrudes to the midline. Palatal elevation and sensation normal. Her hearing is decreased significantly bilaterally for finger rubbing, almost appears equal bilaterally. Hearing appears fine for routine conversation. The shoulder shrug is normal, facial sensation normal. On muscle strength testing, there is no pronator drift. The strength is (right/left) deltoid 5/5, biceps 5/5, triceps 5/5, new car get ready mechanic 4+/5-, hip flexion 4/4+, ankle dorsiflexion 5/5. Sensory to touch is equal with no neglect on double simultaneous stimulation. Cerebellar function showed no ataxia for [id number] testing. No dysdiadochokinesia. No ataxia for [id number] testing on either side. Tone an d bulk of muscles normal. Gait deferred.. On general examination, there is no carotid bruit or murmur, S1-S2 audible. Chest is clear on consultation. Abdomen is soft nontender. No organomegaly, b owel sounds present. Peripheral pulses are present. No edema. - Labs CBC & Chem 7: 10/19/22 06:15 10/20/22 03:29 Assessment and Plan Assessment: This is a 67-year-old woman with new onset right temporal headache, and right facial pain with elevated ESR. Rule out temporal arteritis. Right temporal headache/jaw pain radiating to neck region with elevated ESR seems probable suggestive of temporal arteritis. ESR on presentation is 87 but is trending down after steroid use--->58 Right sided weakness (on examination): No evidence of an acute stroke or mass on MRI. Leukocytosis seems reactive to steroids Coronary artery disease status post stent Hypertension Hyperlipidemia Fibromyalgia Plan: Vascular surgery team is consulted for temporal artery biopsy, undergoing tomorrow. MRI of the brain with and without contrast 10/21/2022 showed no acute intr acranial process. No intracranial mass, acute/subacute infarct or abnormal enhancement. Nonspecific white matter changes. I personally reviewed MRI, agree with the findings. CTA of head and neck revealed mild to moderate bilateral proximal internal carotid artery stenosis, left greater than right. No other significant abnormalities seen. TSH 0.999, and CK 38 Patient is on prednisone 40 mg daily and that is appropriate for her body weight. Repeat ESR, CBC and basic metabolic panel in the morning. Consulted PT and OT We'll defer the rest of the medical management to primary team Neurology will follow.
[2022-10-23 10:44] LABS: HCT 36.3 % (37.2-46.3); HGB 11.7 g/dL (12.0-15.0); MCHC 32.2 g/dL (32.0-37.0); MCV 90.1 fL (80.0-97.0); Mean Platelet Volume 10.3 fL (9.5-12.2); NRBC Per 100 WBC 0 /100 WBCS (0.0-0.0); Platelet Count 458 X 10*3/uL (140-440); RBC 4.03 X 10*6/uL (4.10-5.20); RDW 14.9 % (11.5-14.5); WBC 16.58 X 10*3/uL (4.50-10.00)
[2022-10-23 11:06] LABS: African American GFR (CKD) 69.2 (60.0-200.0); Anion Gap 9.3 mmol/L (10.00-18.00); BUN/Creat Ratio 27.24 Ratio (12.00-20.00); Blood Urea Nitrogen 26.7 mg/dL (9.0-27.0); Calcium 9.7 mg/dL (8.7-10.3); Carbon Dioxide 32.6 mmol/L (20.0-27.5); Non-African American GFR(CKD) 59.7 (60.0-200.0); Potassium 4.6 mmol/L (3.5-5.5)
--- NOTE | 2022-10-23 12:08 | P.PN ---
Subjective From the records 67-year-old female that presents to the emergency room after being sent by her PCP Dr. Causey for evaluation. Family at bedside states that her labs are elevated but unclear which labs. States that she was having this right-sided ea rache and jaw pain for over a month. Denies any fevers. No nausea vomiting or diarrhea. No known sick contacts. No visual changes. Patient was sent by primary care doctor for evaluation of right ear and jaw pain. No visual changes. Sed rate was elevated at office yesterday 110. Patient does report History of coronary artery disease, COPD, fibromyalgia, hypertension, hyperlipidemia, degenerative disc disease, chronic back pain with scoliosis Surgical history, cardiac catheterization, multiple injections, hysterectomy Patient is a daily smoker, one pack a day Patient complains of 8/10 pain, travels from right yazdanism and down into the right ear and jaw. Denies any vision changes. CT of the brain without contrast interpreted as no acute intracranial process. Temporomandibular joints appeared grossly symmetric. Labs show no evidence of leukocytosis Today ESR 87 was 110 in the office yesterday. CRP 1.5. Patient was given Decadron and Benadryl with complete relief of her discomfort. ----- 10/20/2022 Patient reports improvement in headache; she is laying comfortably in bed and watching TV; reports she has gotten used to doing routine activities even with headaches - W shows a sodium of 142, potassium of 4.0, BUN/creatinine of 30.9/0.9; CRP has trended down from 1.5 upon admission down to 0.8 - Patient has been evaluated by vascular surgery and is scheduled for temporal artery biopsy tomorrow morning; patient will be nothing by mouth at midnight I am Resuming the care of the patient today 10/21/2022 This is a pleasant 67 years old female with multiple problems presents with ongoing headache and that the facial pain, she says that she has this problem since February last year, at that time she was doing well, check evaluation for her eyeglasses and she was instructed to follow up with rod puller and coiler because they noticed there is a hole in her arteries, as patient states, she called ophthalmology office and she has been told that he going to call her back but shelli shepard contacted her. Patient did not follow with rod puller and coiler anyway. However her PCP sent her to the hospital this time because of ongoing right- sided headache with right facial pain but no overt visual changes and there was suspicion of temporal arteritis, been evaluated by neurologist and vascular surgery team and in view of her elevated ESR patient was started on prednisone 40 mg daily with plan for temporal artery biopsy tomorrow. Patient denies specific sinus symptoms, no weakness or numbness. She denies worsening blurred vision or double vision however stopped improved today and she still complaining of from headache requesting to increase her pain medication from Donahue 5 up to 7.5 mg. Also we are going to consult ophthalmology for further evaluation 10/22/2022 Patient headache starting improved today after increasing her Donahue to 7.5 yesterday. MRI of the brain is negative for acute process, no stroke Ophthalmology input is appreciated, no primary ophthalmological disease might explain patient's symptoms Patient remains on prednisone 40 mg and blood pressures monitored closely and medication adjusted accordingly Vascular surgeon on the case with the plan for temporal artery biopsy. 10/23/2022 patient is still complaining of from right site headache, no blurred vision, already evaluated by rod puller and coiler. Patient is going for temporal artery biopsy today by vascular surgery team Continued on prednisone 40 mg daily Check ESR tomorrow Objective - Vital Signs Vital signs: Vital Signs Temp 97.9 F 10/23/22 07:30 Pulse 71 10/23/22 07:30 Resp 16 10/23/22 07:30 BP 166/84 10/23/22 07:30 Pulse Ox 95 10/23/22 09:46 FiO2 21 10/23/22 09:46 Intake & Output 10/22/22 10/23/22 10/23/22 18:59 06:59 18:59 Intake Total 118 540 Balance 118 540 Intake: Oral 118 540 Other: Voiding Method Toilet # Voids 2 - Exam GENERAL: The patient is alert and oriented x3, not in any acute distress. Well developed, well nourished. HEENT: Pupils are round and equally reacting to light. EOMI. No scleral icterus. No conjunctival pallor. Normocephalic, atraumatic. No pharyngeal erythema. No thyromegaly. CARDIOVASCULAR: S1 and S2 present. No murmurs, rubs, or gallops. PULMONARY: Chest is clear to auscultation, no wheezing or crackles. ABDOMEN: Soft, nontender, nondistended, normoactive bowel sounds. No palpable organomegaly. MUSCULOSKELETAL: No joint swelling or deformity. EXTREMITIES: No cyanosis, clubbing, or pedal edema. NEUROLOGICAL: Gross neurological examination did not reveal any focal deficits. SKIN: No rashes. no petechiae. - Labs CBC & Chem 7: 10/23/22 05:59 10/23/22 05:59 Labs: Abnormal Lab Results - Last 24 Hours (Table) 10/23/22 10/23/22 Range/Units 05:59 05:59 WBC 16.58 H (4.50-10.00) X 10*3/uL RBC 4.03 L (4.10-5.20) X 10*6/uL Hgb 11.7 L (12.0-15.0) g/dL Hct 36.3 L (37.2-46.3) % RDW 14.9 H (11.5-14.5) % Plt Count 458 H (140-440) X 10*3/uL Carbon Dioxide 32.6 H (20.0-27.5) mmol/L Anion Gap 9.30 L (10.00-18.00) mmol/L Est GFR (CKD-EPI)NonAf 59.7 L (60.0-200.0) BUN/Creatinine Ratio 27.24 H (12.00-20.00) Ratio Assessment and Plan Assessment: Diagnoses: 1. Recurrent/intractable headaches - Sed rate is elevated and CRP - Patient has been placed on prednisone 40 mg daily along with Toradol 15 mg every 6 hours when necessary; Donahue 7.5 mg every 6 hours when necessary is added - Vascular surgery is consulted for further evaluation to rule out temporal arteritis - Consult ophthalmology service 2. Hypertension; amlodipine 5 mg daily 3. Hyperlipidemia; Lipitor 20 mg by mouth daily at bedtime 4. COPD; not in exacerbation; patient is currently not on any inhaler therapy 5. Depression/insomnia; patient takes melatonin 10 mg daily at bedtime, Zoloft 75 mg daily and trazodone 150 mg daily at bedtime 6. Coronary artery disease; stable; patient is on aspirin and statins DVT prophylaxis; SCDs
[2022-10-23] MEDS ORDERED: LACTATED RINGERS 1,000 ML IV ONE (12:15)
[2022-10-23 12:33] LABS: Basophils # (M) 0 X 10*3/uL (0.00-0.10); Eosinophils # (M) 0 X 10*3/uL (0.04-0.35); Lymphocytes # (M) 6.13 X 10*3/uL (0.90-5.00); Monocytes # (M) 1.49 X 10*3/uL (0.20-1.00); Neutrophils # (M) 8.95 X 10*3/uL (2.00-8.90); Neutrophils % (M) 54 %; RBC Morphology NORMAL
[2022-10-23] MEDS ORDERED: fentaNYL (PF) 50 MCG/ML 2 ML AMP ONE (14:30)
[2022-10-23] MEDS ORDERED: PROPOFOL 10 MG/ML 20 ML VIAL IV ONE (14:30)
[2022-10-23] MEDS ORDERED: MIDAZOLAM 2 MG/2 ML VIAL ONE (14:30)
[2022-10-23] MEDS ORDERED: KETAMINE 10 MG/ML 20 ML VIAL ONE (14:30)
[2022-10-23] MEDS ORDERED: LIDOCAINE 1% INJ 10MG/ML (5 ML VIAL-PF) SQ ONE (14:55)
[2022-10-23] MEDS ORDERED: BACITRACIN OINT 1 EACH PACKET TOPICAL ONE (15:17)
--- NOTE | 2022-10-23 15:32 | P.OP ---
Date of Procedure: 10/23/22 Description of Procedure: Preoperative diagnosis: []Headache, temporal pain, elevated inflammatory markers, rule out temporal arteritis Postoperative diagnosis: Same Procedure: Temporal artery biopsy on the right[] Surgeon: Nuha Loving D.O. EBL: [Less than 5 mL] IV fluids: [See records] Urine output: [Not measured] Drains: [None] Complications: [None immediately apparent] Condition: [Stable to recovery] Operative indication and findings: []Patient is a 67 year old female with severe right temporal and jaw pain. She was initiated on steroids and has improvement. Because of this it was recommended she undergo temporal artery biopsy. Risks and benefits were discussed, she seemingly understood and was willing to proceed. Procedure in detail: []Patient was taken to the operative suite and placed in supine position, the right area was prepped and draped in usual sterile fashion. A preprocedure timeout was performed, all parties were in agreement. Over the area of the greatest pulse in the temporal region, the skin was anesthetized and 1% lidocaine plain. Incision was made and carried down to the subcutaneous tissues using electrocautery. The artery is identified. It was suture ligated proximal and distally and sent for specimen. The areas and irrigated. Hemostasis was achieved with electrocautery. The deep dermal tissues were reapproximated with interrupted sutures of 3-0 Vicryl. The skin was approximate with 5-0 Monocryl. Bacitracin was placed. The patient was allowed awaken from anesthesia and transported to recovery in stable condition having tolerated the procedure well.
[2022-10-23] MEDS ORDERED: HYDROmorphone 0.5 MG/0.5 ML SYRINGE IVP ONE (15:39)
[2022-10-23] MEDS: LACTATED RINGERS 1,000 ML IV SCH (16:00)
[2022-10-23] MEDS: MELATONIN 5 MG TABLET PO SCH (19:59)
[2022-10-23] MEDS: traZODone HCL 50 MG TAB PO SCH (19:59)
[2022-10-23] MEDS: ATORVASTATIN 20 MG TAB PO SCH (20:00)
[2022-10-23] MEDS ORDERED: MORPHINE SULFATE 2 MG/ML SYRINGE IVP STA (20:09)
--- NOTE | 2022-10-23 22:19 | P.PN ---
Subjective Progress Note Date: 10/23/22 10/23/2022: Patient was seen for a follow-up. Patient had undergone right temporal artery biopsy today. Patient continues to have severe pain. No improvement with the steroids. Patient states that for the last 2 years she had new-onset bilateral temporal headaches. However the right temporal, jaw and TMJ pain started 2 months ago. At present it is 10/10. It is a constant throbbing pain, and the jaw bone aches. About 4-5 times a day patient gets burning sensation inside the skull and she sweats profusely for a minute. Patient states that it feels like she is getting slammed by a sledgehammer. It hurts to look to the right side, or turning head to the right. There is throbbing in the right anterior neck region as well. She denies any nausea or vomiting, although light and noises sensitive. Patient states that it hurts to talk. Denies any headache on the left side. Patient states that she had a right jaw bone fracture 20 years ago. 10/22/2022: Patient was seen for a follow-up. Patient states she is still having headache, rates 10/10 pointing to the right gnosticism and right facial region. She states that she feels tired. No pain on the left side of her head. Her hearing is still decreased on the right side with static feeling on the right side. No new concerns. 10/21/2022: Patient initially seen by Dr. Kam Faulkner. Please refer to his note for details. Patient is a 67-year-old female with right temporal headache/jaw pain/facial pain with elevated ESR. The right facial pain, and right temporal headache started on 10/05/2022, when she woke up with a headache. She also had complete loss of hearing in the right ear. This hearing loss lasted for 2 days, but now she has constant static in the right ear. Concern for temporal arteritis. Patient is on steroids orally. Patient undergoing temporal artery biopsy today. Patient states that her headache is 10/10. On day 1 of steroids, but when down to 8/10, but then it came back up and is 10/10. Patient denies any fever, denies any weight loss. She does get sometimes burning inside the head and she sweats. She felt it was her hot flashes. Patient states that she has history of chronic daily headaches for last 2 years. The headache lasts all day long. The headaches used to be bitemporal and also involves back of the head. She has chronic daily headaches for last 2 years. The above headache and facial pain is new. Patient states she has a "hole" in the right eye, doughnut-shaped. Objective - Vital Signs Vital signs: Vital Signs Temp 97.8 F 10/23/22 16:15 Pulse 75 10/23/22 18:15 Resp 16 10/23/22 18:15 BP 156/75 10/23/22 18:15 Pulse Ox 95 10/23/22 18:15 FiO2 21 10/23/22 09:46 Intake & Output 10/23/22 10/23/22 10/24/22 06:59 18:59 06:59 Intake Total 540 818 Output Total 1 Balance 540 817 Weight 39.463 kg Intake: IV 600 Oral 540 218 Output: Estimated Blood Loss 1 Other: Voiding Method Toilet # Voids 1 - Exam Patient is an elderly female, in no acute distress. Patient is alert awake oriented to time place and person. Speech and language functions are normal. Patient can name and repeat very well. No aphasia or dysarthria. Attention, concentration and fund of knowledge is adequate. On cranial nerve examination, pupils are equal, round and reacting to light, visual adler are full on confrontation, with no neglect on double simultaneous stimulation. Extraocular muscles are intact with no nystagmus. Face is symmetric, tongue protrudes to the midline. Palatal elevation and sensation normal. Her hearing is decreased significantly bilaterally for finger rubbing, almost appears equal bilaterally. Hearing appears fine for routine conversation. The shoulder shrug is normal, facial sensation normal. On muscle strength testing, there is no pronator drift. The strength is (right/left) deltoid 5/5, biceps 5/5, triceps 5/5, delinquency prevention social worker 4+/5-, hip flexion 4/4+, ankle dorsiflexion 5/5. Sensory to touch is equal with no neglect on double simultaneous stimulation. Cerebellar function showed no ataxia for ibznax-gw-htoc testing. No dysdiadochokinesia. No ataxia for [id number] testing on either side. Tone and bulk of muscles normal. Gait deferred.. On general examination, there is no carotid bruit or murmur, S1-S2 audible. Chest is clear on consultation. Abdomen is soft nontender. No organomegaly, bowel sounds present. Peripheral pulses are present. No edema. - Labs CBC & Chem 7: 10/23/22 05:59 10/23/22 05:59 Labs: Abnormal Lab Results - Last 24 Hours (Table) 10/23/22 10/23/22 Range/Units 05:59 05:59 WBC 16.58 H (4.50-10.00) X 10*3/uL RBC 4.03 L (4.10-5.20) X 10*6/uL Hgb 11.7 L (12.0-15.0) g/dL Hct 36.3 L (37.2-46.3) % RDW 14.9 H (11.5-14.5) % Plt Count 458 H (140-440) X 10*3/uL Plt Count Comment INCREASED A Neutrophils # (Manual) 8.95 H (2.00-8.90) X 10*3/uL Lymphocytes # (Manual) 6.13 H (0.90-5.00) X 10*3/uL Monocytes # (Manual) 1.49 H (0.20-1.00) X 10*3/uL Eosinophils # (Manual) 0 L (0.04-0.35) X 10*3/uL Carbon Dioxide 32.6 H (20.0-27.5) mmol/L Anion Gap 9.30 L (10.00-18.00) mmol/L Est GFR (CKD-EPI)NonAf 59.7 L (60.0-200.0) BUN/Creatinine Ratio 27.24 H (12.00-20.00) Ratio Assessment and Plan Assessment: This is a 67-year-old woman with new onset right temporal headache, and right facial pain with elevated ESR. Rule out temporal arteritis. Right temporal headache/jaw pain radiating to neck region with elevated ESR seems probable suggestive of temporal arteritis. ESR on presentation is 87 but is trending down after steroid use--->58--->29 normal today. Right sided weakness (on examination): No evidence of an acute stroke or mass on MRI. Leukocytosis seems reactive to steroids Coronary artery disease status post stent Hypertension Hyperlipidemia Fibromyalgia Plan: Patient had undergone right temporal artery biopsy. Awaiting biopsy results. Continue prednisone 40 mg daily for now. Although the ESR is 29 normal, but the headache has not improved. She still has 10/10 headache involving the right gnosticism, TMJ area and right anterior neck region. Uncertain if patient has TMJ pain or trigeminal neuropathy. Symptoms do not appear classic trigeminal neuralgia. Even if this was TMJ pain, should have been improved with high-dose steroids. Consider CT TMJ maxillofacial region without contrast. If temporal artery biopsy comes up negative, we will consider treatment with Tegretol. MRI of the brain with and without contrast 10/21/2022 showed no acute intracranial process. No intracranial mass, acute/subacute infarct or abnormal enhancement. Nonspecific white matter changes. I personally reviewed MRI, agree with the findings. CTA of head and neck revealed mild to moderate bilateral proximal internal carotid artery stenosis, left greater than right. No other significant abnormalities seen. TSH 0.999, and CK 38 Patient is on prednisone 40 mg daily and that is appropriate for her body weight. Repeat ESR normal 29, CBC still shows leukocytosis, possibly due to steroids. Neurology will follow.
[2022-10-24] MEDS: HYDROcodone/APAP 7.5-325MG 1 EACH TAB PO PRN (04:49)
[2022-10-24] MEDS: ASPIRIN-ACET-CAFF 250-250-65MG 1 EACH TAB PO SCH ×2 (08:20→14:14)
[2022-10-24] MEDS: SERTRALINE 25 MG TAB PO SCH (08:20)
[2022-10-24] MEDS: amLODIPine 10 MG TAB PO SCH (08:20)
[2022-10-24] MEDS: predniSONE 20 MG TAB PO SCH (08:21)
[2022-10-24] MEDS: PANTOPRAZOLE 40 MG TABLET PO SCH (08:21)
--- NOTE | 2022-10-24 08:47 | P.PN ---
Subjective Progress Note Date: 10/24/22 Principal diagnosis: Headache Patient is seen and examined today as a follow-up. Yesterday she underwent right temporal artery biopsy. She states she still has headache in the right side of her head and face down into her neck. Otherwise no complications from the procedure. She's been afebrile. Objective - Vital Signs Vital signs: Vital Signs Temp 98.3 F 10/24/22 02:23 Pulse 71 10/24/22 02:23 Resp 18 10/24/22 02:23 BP 145/76 10/24/22 02:23 Pulse Ox 94 L 10/24/22 02:23 FiO2 21 10/23/22 09:46 Intake & Output 10/23/22 10/24/22 10/24/22 18:59 06:59 18:59 Intake Total 818 240 Output Total 1 Balance 817 240 Weight 39.463 kg Intake: IV 600 Oral 218 240 Output: Estimated Blood Loss 1 Other: Voiding Method Toilet # Voids 1 - Exam General appearance: The patient is alert, oriented, appears in no acute distress. HET: Head is normocephalic and atraumatic. Pupils are equal and reactive. Right temporal incision site well approximated without any bleeding, drainage, bruising. Neck: Supple. Extremities: Normal skin color and turgor. Neurological: No focal deficits. Strength and sensation are grossly intact. - Labs CBC & Chem 7: 10/23/22 05:59 10/23/22 05:59 Labs: Abnormal Lab Results - Last 24 Hours (Table) 10/23/22 10/23/22 Range/Units 05:59 05:59 WBC 16.58 H (4.50-10.00) X 10*3/uL RBC 4.03 L (4.10-5.20) X 10*6/uL Hgb 11.7 L (12.0-15.0) g/dL Hct 36.3 L (37.2-46.3) % RDW 14.9 H (11.5-14.5) % Plt Count 458 H (140-440) X 10*3/uL Plt Count Comment INCREASED A Neutrophils # (Manual) 8.95 H (2.00-8.90) X 10*3/uL Lymphocytes # (Manual) 6.13 H (0.90-5.00) X 10*3/uL Monocytes # (Manual) 1.49 H (0.20-1.00) X 10*3/uL Eosinophils # (Manual) 0 L (0.04-0.35) X 10*3/uL Carbon Dioxide 32.6 H (20.0-27.5) mmol/L Anion Gap 9.30 L (10.00-18.00) mmol/L Est GFR (CKD-EPI)NonAf 59.7 L (60.0-200.0) BUN/Creatinine Ratio 27.24 H (12.00-20.00) Ratio Assessment and Plan Assessment: 1. Headache 2. Right temporal jaw pain with elevated ESR 3. Status post right temporal artery biopsy Plan: 1. Continue medical management, await biopsy results 2. Patient is cleared by vascular surgery for discharge. We will sign off at this time. The impression and plan of care has been dictated as directed. Dr. Glass I performed a history and examination of this patient, discussed the same with the dictator. I agree with the dictator's note ,documented as a scribe. Any additional findings or plans will be noted.
[2022-10-24 09:37] LABS: HCT 34.3 % (37.2-46.3); HGB 10.9 g/dL (12.0-15.0); MCH 28.5 pg (27.0-32.0); MCHC 31.8 g/dL (32.0-37.0); MCV 89.6 fL (80.0-97.0); Mean Platelet Volume 10.5 fL (9.5-12.2); NRBC Per 100 WBC 0 /100 WBCS (0.0-0.0); Platelet Count 461 X 10*3/uL (140-440); RBC 3.83 X 10*6/uL (4.10-5.20); RDW 14.8 % (11.5-14.5); WBC 13.84 X 10*3/uL (4.50-10.00)
[2022-10-24 10:27] LABS: Basophils # (A) 0.02 X 10*3/uL (0.00-0.10); Basophils % (A) 0.1 %; Eosinophils # (A) 0.04 X 10*3/uL (0.04-0.35); Eosinophils % (A) 0.3 %; Immature Grans, Automated 0.6 %; Lymphocytes # (A) 5.18 X 10*3/uL (0.90-5.00); Lymphocytes % (A) 37.4 %; Macrocytosis (M) 2+; Monocytes # (A) 0.99 X 10*3/uL (0.20-1.00); Monocytes % (A) 7.2 %; Neutrophils # (A) 7.53 X 10*3/uL (1.80-7.70); Neutrophils % (A) 54.4 %
--- NOTE | 2022-10-24 10:30 | CT ---
EXAMINATION TYPE: CT facial bones wo con DATE OF EXAM: 10/24/2022 COMPARISON: None HISTORY: right sided TMJ pain and swelling CT DLP: 506.[address] of the paranasal sinuses was performed in the axial and coronal planes. Bone and soft tissue settings are submitted. The paranasal sinuses demonstrate normal aeration and development. Previous of medial maxillary antre ctomy and partial ethmoidectomy. Moderate mucosal thickening involving the sphenoid sinus. The remaining paranasal sinuses are well-ae rated. The osteal meatal units are patent bilaterally. The nasal septum is midline. No bony destructive changes are seen within the field of view. IMPRESSION: 1. Chronic sinusitis sphenoid sinus.
[2022-10-24] MEDS: HYDROcodone/APAP 10-325MG 1 EACH TAB PO PRN (10:43)
[2022-10-24] MEDS: carBAMazepine 200 MG TAB PO SCH ×2 (10:44→20:39)
[2022-10-24 10:46] LABS: Erythrocyte Sedimentation Rate 27 mm/Hr (0-30)
--- NOTE | 2022-10-24 11:32 | P.PN ---
Subjective From the records 67-year-old female that presents to the emergency room after being sent by her PCP Dr. Causey for evaluation. Family at bedside states that her labs are elevated but unclear which labs. States that she was having this right-sided ea rache and jaw pain for over a month. Denies any fevers. No nausea vomiting or diarrhea. No known sick contacts. No visual changes. Patient was sent by primary care doctor for evaluation of right ear and jaw pain. No visual changes. Sed rate was elevated at office yesterday 110. Patient does report History of coronary artery disease, COPD, fibromyalgia, hypertension, hyperlipidemia, degenerative disc disease, chronic back pain with scoliosis Surgical history, cardiac catheterization, multiple injections, hysterectomy Patient is a daily smoker, one pack a day Patient complains of 8/10 pain, travels from right sabianist and down into the right ear and jaw. Denies any vision changes. CT of the brain without contrast interpreted as no acute intracranial process. Temporomandibular joints appeared grossly symmetric. Labs show no evidence of leukocytosis Today ESR 87 was 110 in the office yesterday. CRP 1.5. Patient was given Decadron and Benadryl with complete relief of her discomfort. ----- 10/20/2022 Patient reports improvement in headache; she is laying comfortably in bed and watching TV; reports she has gotten used to doing routine activities even with headaches - W shows a sodium of 142, potassium of 4.0, BUN/creatinine of 30.9/0.9; CRP has trended down from 1.5 upon admission down to 0.8 - Patient has been evaluated by vascular surgery and is scheduled for temporal artery biopsy tomorrow morning; patient will be nothing by mouth at midnight I am Resuming the care of the patient today 10/21/2022 This is a pleasant 67 years old female with multiple problems presents with ongoing headache and that the facial pain, she says that she has this problem since February last year, at that time she was doing well, check evaluation for her eyeglasses and she was instructed to follow up with order processing manager because they noticed there is a hole in her arteries, as patient states, she called ophthalmology office and she has been told that he going to call her back but shelli shepard contacted her. Patient did not follow with order processing manager anyway. However her PCP sent her to the hospital this time because of ongoing right- sided headache with right facial pain but no overt visual changes and there was suspicion of temporal arteritis, been evaluated by neurologist and vascular surgery team and in view of her elevated ESR patient was started on prednisone 40 mg daily with plan for temporal artery biopsy tomorrow. Patient denies specific sinus symptoms, no weakness or numbness. She denies worsening blurred vision or double vision however stopped improved today and she still complaining of from headache requesting to increase her pain medication from [place] 5 up to 7.5 mg. Also we are going to consult ophthalmology for further evaluation 10/22/2022 Patient headache starting improved today after increasing her [place] to 7.5 yesterday. MRI of the brain is negative for acute process, no stroke Ophthalmology input is appreciated, no primary ophthalmological disease might explain patient's symptoms Patient remains on prednisone 40 mg and blood pressures monitored closely and medication adjusted accordingly Vascular surgeon on the case with the plan for temporal artery biopsy. 10/23/2022 patient is still complaining of from right site headache, no blurred vision, already evaluated by order processing manager. Patient is going for temporal artery biopsy today by vascular surgery team Continued on prednisone 40 mg daily Check ESR tomorrow 10/24/2022 Patient remains having significant headache on her right temporal area despite she was taking steroids for several days now. Temporal artery biopsy was done yesterday just in front of her right ear, wound is sutured and closed currently with mild surrounding a bruise which is expected. We increase her pain medication to [place] 10 today. Also discussed the case within urology service, we obtained facial that scan to rule out temporomandibular joint abnormality however chose see no sinusitis. We started patient on Claritin and Augmentin. Also patient started on Tegretol for concerns for trigeminal neuralgia as it is in the differential diagnosis. Blood pressure controlled and she has mild leukocytosis while she is on steroids. Objective - Vital Signs Vital signs: Vital Signs Temp 97.7 F 10/24/22 07:54 Pulse 84 10/24/22 07:54 Resp 16 10/24/22 07:54 BP 157/82 10/24/22 07:54 Pulse Ox 100 10/24/22 07:54 FiO2 21 10/23/22 09:46 Intake & Output 10/23/22 10/24/22 10/24/22 18:59 06:59 18:59 Intake Total 818 240 240 Output Total 1 Balance 817 240 240 Weight 39.463 kg Intake: IV 600 Oral 218 240 240 Output: Estimated Blood Loss 1 Other: Voiding Method Toilet # Voids 1 - Exam GENERAL: The patient is alert and oriented x3, not in any acute distress. Well developed, well nourished. -HEENT: Pupils are round and equally reacting to light. EOMI. No scleral icterus. No conjunctival pallor. Normocephalic, atraumatic. No pharyngeal erythema. No thyromegaly. Sutured small wound about 1 inch in front of the right ear, healing CARDIOVASCULAR: S1 and S2 present. No murmurs, rubs, or gallops. PULMONARY: Chest is clear to auscultation, no wheezing or crackles. ABDOMEN: Soft, nontender, nondistended, normoactive bowel sounds. No palpable organomegaly. MUSCULOSKELETAL: No joint swelling or deformity. EXTREMITIES: No cyanosis, clubbing, or pedal edema. -NEUROLOGICAL: Gross neurological examination did not reveal any focal deficits. Right temporal tenderness SKIN: No rashes. no petechiae. - Labs CBC & Chem 7: 10/24/22 05:34 10/23/22 05:59 Labs: Abnormal Lab Results - Last 24 Hours (Table) 10/23/22 10/24/22 Range/Units 05:59 05:34 WBC 13.84 H (4.50-10.00) X 10*3/uL RBC 3.83 L (4.10-5.20) X 10*6/uL Hgb 10.9 L (12.0-15.0) g/dL Hct 34.3 L (37.2-46.3) % MCHC 31.8 L (32.0-37.0) g/dL RDW 14.8 H (11.5-14.5) % Plt Count 461 H (140-440) X 10*3/uL Plt Count Comment INCREASED A INCREASED A Immature Gran # 0.08 H (0.00-0.04) X 10*3/uL Neutrophils # (Manual) 8.95 H (2.00-8.90) X 10*3/uL Lymphocytes # 5.18 H (0.90-5.00) X 10*3/uL Lymphocytes # (Manual) 6.13 H (0.90-5.00) X 10*3/uL Monocytes # (Manual) 1.49 H (0.20-1.00) X 10*3/uL Eosinophils # (Manual) 0 L (0.04-0.35) X 10*3/uL Assessment and Plan Assessment: Diagnoses: 1. Recurrent/intractable headaches, temporal arteritis is suspected, differential diagnosis including acute sphenoid sinusitis, trigeminal neuralgia - Sed rate is elevated and CRP - Patient has been placed on prednisone 40 mg daily along with Toradol 15 mg every 6 hours when necessary; [place] 7.5 mg every 6 hours when necessary is added - Vascular surgery is consulted , follow-up biopsy of the temporal artery - Consult ophthalmology service , now, which Causes - Started on Tegretol. Also started on Augmentin and Claritin 2. Hypertension; amlodipine 5 mg daily 3. Hyperlipidemia; Lipitor 20 mg by mouth daily at bedtime 4. COPD; not in exacerbation; patient is currently not on any inhaler therapy 5. Depression/insomnia; patient takes melatonin 10 mg daily at bedtime, Zoloft 75 mg daily and trazodone 150 mg daily at bedtime 6. Coronary artery disease; stable; patient is on aspirin and statins DVT prophylaxis; SCDs
[2022-10-24] MEDS: LORATADINE 10 MG TAB PO SCH (12:37)
[2022-10-24] MEDS: AMOXIC-POT CLAV 875-125MG 1 EACH TAB PO SCH ×2 (12:38→20:38)
[2022-10-24] MEDS: DOCUSATE 100 MG CAP PO SCH ×2 (13:17→20:38)
[2022-10-24] MEDS: LACTATED RINGERS 1,000 ML IV SCH (13:17)
--- NOTE | 2022-10-24 13:21 | P.PN ---
Subjective Progress Note Date: 10/24/22 10/24/2022: Patient was seen for a follow-up. Patient continues to have very severe headache in the same location mentioned yesterday. No improvement at all. 10/23/2022: Patient was seen for a follow-up. Patient had undergone right temporal artery biopsy today. Patient continues to have severe pain. No improvement with the steroids. Patient states that for the last 2 years she had new-onset bilateral temporal headaches. However the right temporal, jaw and TMJ pain started 2 months ago. At present it is 10/10. It is a constant throbbing pain, and the jaw bone aches. About 4-5 times a day patient gets burning sensation inside the skull and she sweats profusely for a minute. Patient states that it feels like she is getting slammed by a sledgehammer. It hurts to look to the right side, or turning head to the right. There is throbbing in the right anterior neck region as well. She denies any nausea or vomiting, although light and noises sensitive. Patient states that it hurts to talk. Denies any headache on the left side. Patient states that she had a right jaw bone fracture 20 years ago. 10/22/2022: Patient was seen for a follow-up. Patient states she is still having headache, rates 10/10 pointing to the right jainism and right facial region. She states that she feels tired. No pain on the left side of her head. Her hearing is still decreased on the right side with static feeling on the right side. No new concerns. 10/21/2022: Patient initially seen by Dr. Kam Faulkner. Please refer to his note for details. Patient is a 67-year-old female with right temporal headache/jaw pain/facial p ain with elevated ESR. The right facial pain, and right temporal headache started on 10/05/2022, when she woke up with a headache. She also had complete loss of hearing in the right ear. This hearing loss lasted for 2 days, but now she has constant static in the right ear. Concern for temporal arteritis. Patient is on steroids orally. Patient undergoing temporal artery biopsy today. Patient states that her headache is 10/10. On day 1 of steroids, but when down to 8/10, but then it came back up and is 10/10. Patient denies any fever, denies any weight loss. She does get sometimes burning inside the head and she sweats. She felt it was her hot flashes. Patient states that she has history of chronic daily headaches for last 2 years. The headache lasts all day long. The headaches used to be bitemporal and also involves back of the head. She has chronic daily headaches for last 2 years. The above headache and facial pain is new. Patient states she has a "hole" in the right eye, doughnut-shaped. Objective - Vital Signs Vital signs: Vital Signs Temp 97.7 F 10/24/22 07:54 Pulse 84 10/24/22 07:54 Resp 16 10/24/22 07:54 BP 157/82 10/24/22 07:54 Pulse Ox 100 10/24/22 07:54 FiO2 21 10/23/22 09:46 Intake & Output 10/23/22 10/24/22 10/24/22 18:59 06:59 18:59 Intake Total 818 240 240 Output Total 1 Balance 817 240 240 Weight 39.463 kg Intake: IV 600 Oral 218 240 240 Output: Estimated Blood Loss 1 Other: Voiding Method Toilet # Voids 1 - Exam Patient is an elderly female, in no acute distress. Patient is alert awake oriented to time place and person. Speech and language functions are normal. Patient can name and repeat very well. No aphasia or dysarthria. Attention, concentration and fund of knowledge is adequate. On cranial nerve examination, pupils are equal, round and reacting to light, visual adler are full on confrontation, with no neglect on double simultaneous stimulation. Extraocular muscles are intact with no nystagmus. Face is symmetric, tongue protrudes to the midline. Palatal elevation and sensation normal. Her hearing is decreased significantly bilaterally for finger rubbing, almost appears equal bilaterally. Hearing appears fine for routine conversation. The shoulder shrug is normal, facial sensation normal. On muscle strength testing, there is no pronator drift. The strength is (right/left) deltoid 5/5, biceps 5/5, triceps 5/5, admitting officer 4+/5-, hip flexion 4/4+, ankle dorsiflexion 5/5. Sensory to touch is equal with no neglect on double simultaneous stimulation. Cerebellar function showed no ataxia for [id number] testing. No dysdiadochokinesia. No ataxia for [id number] testing on either side. Tone and bulk of muscles normal. Gait deferred.. On general examination, there is no carotid bruit or murmur, S1-S2 audible. Chest is clear on consultation. Abdomen is soft nontender. No organomegaly, bowel sounds present. Peripheral pulses are present. No edema. - Labs CBC & Chem 7: 10/24/22 05:34 10/23/22 05:59 Labs: Abnormal Lab Results - Last 24 Hours (Table) 10/24/22 Range/Units 05:34 WBC 13.84 H (4.50-10.00) X 10*3/uL RBC 3.83 L (4.10-5.20) X 10*6/uL Hgb 10.9 L (12.0-15.0) g/dL Hct 34.3 L (37.2-46.3) % MCHC 31.8 L (32.0-37.0) g/dL RDW 14.8 H (11.5-14.5) % Plt Count 461 H (140-440) X 10*3/uL Plt Count Comment INCREASED A Immature Gran # 0.08 H (0.00-0.04) X 10*3/uL Lymphocytes # 5.18 H (0.90-5.00) X 10*3/uL Assessment and Plan Assessment: This is a 67-year-old woman with new onset right temporal headache, and right fa cial pain with elevated ESR. Rule out temporal arteritis. Right temporal headache/jaw pain radiating to neck region with elevated ESR seems probable suggestive of temporal arteritis. ESR on presentation is 87 but is trending down after steroid use--->58--->29 normal 10/23/2022. Right sided weakness (on examination): No evidence of an acute stroke or mass on MRI. Leukocytosis seems reactive to steroids Coronary artery disease status post stent Hypertension Hyperlipidemia Fibromyalgia Plan: Patient had undergone right temporal artery biopsy. Awaiting biopsy results. Continue prednisone 40 mg daily for now. Although the ESR is 29 normal, but the headache has not improved. She still has 10/10 headache involving the right jainism, TMJ area and right anterior neck region. Uncertain if patient has TMJ pain or trigeminal neuropathy. Symptoms do not appear classic trigeminal neuralgia. Even if this was TMJ pain, should have improved with high-dose steroids. We will check CT TMJ maxillofacial region without contrast. Empirically start Tegretol 100 mg twice a day. Possible side effects discussed. May increase the dose as tolerated. MRI of the brain with and without contrast 10/21/2022 showed no acute intracranial process. No intracranial mass, acute/subacute infarct or abnormal enhancement. Nonspecific white matter changes. I personally reviewed MRI, agree with the findings. CTA of head and neck revealed mild to moderate bilateral proximal internal carotid artery stenosis, left greater than right. No other significant abnormalities seen. TSH 0.999, and CK 38 Patient is on prednisone 40 mg daily and that is appropriate for her body weight. Repeat ESR normal 29, CBC still shows leukocytosis, possibly due to steroids. Neurology will follow. Discussed with primary physician. Addendum: Facial CT revealed chronic sinusitis sphenoid sinus. I personally reviewed current CT, previous CT/MRI of the brain. Patient does have mild chronic sphenoid sinus disease, but this has got significantly worse. Patient most likely has acute on chronic sphenoid sinusitis. Suggest starting antibiotics, preferable IV antibiotics. Patient doing much better with Tegretol one tablet. We will continue Tegretol for now. As the ESR is normal, we will decrease prednisone to 30 mg daily, and plan to wean off prednisone in the biopsy is negative. Patient has noticed hearing loss. Recommend ENT consultation.
[2022-10-24] MEDS: ATORVASTATIN 20 MG TAB PO SCH (20:38)
[2022-10-24] MEDS: MELATONIN 5 MG TABLET PO SCH (20:38)
[2022-10-24] MEDS: traZODone HCL 50 MG TAB PO SCH (20:38)
[2022-10-24] MEDS ORDERED: DOCUSATE 100 MG CAP PO SCH (21:00)
[2022-10-25] MEDS: HYDROcodone/APAP 10-325MG 1 EACH TAB PO PRN ×3 (00:14→17:13)
[2022-10-25] MEDS: ASPIRIN-ACET-CAFF 250-250-65MG 1 EACH TAB PO SCH ×2 (06:26→14:06)
[2022-10-25] MEDS: amLODIPine 10 MG TAB PO SCH (08:53)
[2022-10-25] MEDS: AMOXIC-POT CLAV 875-125MG 1 EACH TAB PO SCH ×2 (08:53→21:10)
[2022-10-25] MEDS: LORATADINE 10 MG TAB PO SCH (08:55)
[2022-10-25] MEDS: DOCUSATE 100 MG CAP PO SCH ×2 (08:55→21:04)
[2022-10-25] MEDS: PANTOPRAZOLE 40 MG TABLET PO SCH (08:56)
[2022-10-25] MEDS: SERTRALINE 25 MG TAB PO SCH (08:56)
[2022-10-25] MEDS ORDERED: predniSONE 10 MG TAB PO SCH (09:00)
[2022-10-25] MEDS: carBAMazepine 200 MG TAB PO SCH ×2 (10:23→21:10)
[2022-10-25] MEDS ORDERED: polyethylene glycoL 3350 17 GM POWD.PACK PO STA (13:42)
--- NOTE | 2022-10-25 14:38 | P.PN ---
Subjective From the records 67-year-old female that presents to the emergency room after being sent by her PCP Dr. Causey for evaluation. Family at bedside states that her labs are elevated but unclear which labs. States that she was having this right-sided ea rache and jaw pain for over a month. Denies any fevers. No nausea vomiting or diarrhea. No known sick contacts. No visual changes. Patient was sent by primary care doctor for evaluation of right ear and jaw pain. No visual changes. Sed rate was elevated at office yesterday 110. Patient does report History of coronary artery disease, COPD, fibromyalgia, hypertension, hyperlipidemia, degenerative disc disease, chronic back pain with scoliosis Surgical history, cardiac catheterization, multiple injections, hysterectomy Patient is a daily smoker, one pack a day Patient complains of 8/10 pain, travels from right voodoo and down into the right ear and jaw. Denies any vision changes. CT of the brain without contrast interpreted as no acute intracranial process. Temporomandibular joints appeared grossly symmetric. Labs show no evidence of leukocytosis Today ESR 87 was 110 in the office yesterday. CRP 1.5. Patient was given Decadron and Benadryl with complete relief of her discomfort. ----- 10/20/2022 Patient reports improvement in headache; she is laying comfortably in bed and watching TV; reports she has gotten used to doing routine activities even with headaches - W shows a sodium of 142, potassium of 4.0, BUN/creatinine of 30.9/0.9; CRP has trended down from 1.5 upon admission down to 0.8 - Patient has been evaluated by vascular surgery and is scheduled for temporal artery biopsy tomorrow morning; patient will be nothing by mouth at midnight I am Resuming the care of the patient today 10/21/2022 This is a pleasant 67 years old female with multiple problems presents with ongoing headache and that the facial pain, she says that she has this problem since February last year, at that time she was doing well, check evaluation for her eyeglasses and she was instructed to follow up with outside sales consultant because they noticed there is a hole in her arteries, as patient states, she called ophthalmology office and she has been told that he going to call her back but shelli shepard contacted her. Patient did not follow with outside sales consultant anyway. However her PCP sent her to the hospital this time because of ongoing right- sided headache with right facial pain but no overt visual changes and there was suspicion of temporal arteritis, been evaluated by neurologist and vascular surgery team and in view of her elevated ESR patient was started on prednisone 40 mg daily with plan for temporal artery biopsy tomorrow. Patient denies specific sinus symptoms, no weakness or numbness. She denies worsening blurred vision or double vision however stopped improved today and she still complaining of from headache requesting to increase her pain medication from [place] 5 up to 7.5 mg. Also we are going to consult ophthalmology for further evaluation 10/22/2022 Patient headache starting improved today after increasing her [place] to 7.5 yesterday. MRI of the brain is negative for acute process, no stroke Ophthalmology input is appreciated, no primary ophthalmological disease might explain patient's symptoms Patient remains on prednisone 40 mg and blood pressures monitored closely and medication adjusted accordingly Vascular surgeon on the case with the plan for temporal artery biopsy. 10/23/2022 patient is still complaining of from right site headache, no blurred vision, already evaluated by outside sales consultant. Patient is going for temporal artery biopsy today by vascular surgery team Continued on prednisone 40 mg daily Check ESR tomorrow 10/24/2022 Patient remains having significant headache on her right temporal area despite she was taking steroids for several days now. Temporal artery biopsy was done yesterday just in front of her right ear, wound is sutured and closed currently with mild surrounding a bruise which is expected. We increase her pain medication to [place] 10 today. Also discussed the case within urology service, we obtained facial that scan to rule out temporomandibular joint abnormality however chose see no sinusitis. We started patient on Claritin and Augmentin. Also patient started on Tegretol for concerns for trigeminal neuralgia as it is in the differential diagnosis. Blood pressure controlled and she has mild leukocytosis while she is on steroids. 10/25/2022 Patient headache improved since yesterday significantly down to 5/10 today, it was even earlier 0/10 as per staff. Per patient she felt better after took Tegretol tablets but it is hard to say because also she was on the prednisone and ESR improving as well. Also she was started on antibiotic with Augmentin for possible sphenoid sinusitis, and team was consulted. She denies any other symptoms. Temporal artery biopsy still pending. Objective - Vital Signs Vital signs: Vital Signs Temp 98 F 10/25/22 08:00 Pulse 69 10/25/22 08:00 Resp 16 10/25/22 08:00 BP 155/84 10/25/22 08:00 Pulse Ox 94 L 10/25/22 08:00 FiO2 21 10/23/22 09:46 Intake & Output 10/24/22 10/25/22 10/25/22 18:59 06:59 18:59 Intake Total 480 780 236 Balance 480 780 236 Intake: Oral 480 780 236 Other: Voiding Method Toilet # Voids 2 - Exam GENERAL: The patient is alert and oriented x3, not in any acute distress. Well developed, well nourished. -HEENT: Pupils are round and equally reacting to light. EOMI. No scleral icterus. No conjunctival pallor. Normocephalic, atraumatic. No pharyngeal erythema. No thyromegaly. Sutured small wound about 1 inch in front of the right ear, healing CARDIOVASCULAR: S1 and S2 present. No murmurs, rubs, or gallops. PULMONARY: Chest is clear to auscultation, no wheezing or crackles. ABDOMEN: Soft, nontender, nondistended, normoactive bowel sounds. No palpable organomegaly. MUSCULOSKELETAL: No joint swelling or deformity. EXTREMITIES: No cyanosis, clubbing, or pedal edema. -NEUROLOGICAL: Gross neurological examination did not reveal any focal deficits. Right temporal tenderness SKIN: No rashes. no petechiae. - Labs CBC & Chem 7: 10/24/22 05:34 10/23/22 05:59 Assessment and Plan Assessment: Diagnoses: 1. Recurrent/intractable headaches, temporal arteritis is suspected, differential diagnosis including acute sphenoid sinusitis, trigeminal neuralgia - Sed rate is elevated and CRP - Patient has been placed on prednisone 40 mg daily along with Toradol 15 mg every 6 hours when necessary; [place] 7.5 mg every 6 hours when necessary is added - Vascular surgery is consulted , follow-up biopsy of the temporal artery - Consult ophthalmology service , now, which Causes - Started on Tegretol. Also started on Augmentin and Claritin. Consult ophthalmology service 2. Hypertension; amlodipine 5 mg daily 3. Hyperlipidemia; Lipitor 20 mg by mouth daily at bedtime 4. COPD; not in exacerbation; patient is currently not on any inhaler therapy 5. Depression/insomnia; patient takes melatonin 10 mg daily at bedtime, Zoloft 75 mg daily and trazodone 150 mg daily at bedtime 6. Coronary artery disease; stable; patient is on aspirin and statins DVT prophylaxis; SCDs
[2022-10-25] MEDS: LACTATED RINGERS 1,000 ML IV SCH (15:41)
[2022-10-25] MEDS: MELATONIN 5 MG TABLET PO SCH (21:04)
[2022-10-25] MEDS: ATORVASTATIN 20 MG TAB PO SCH (21:04)
[2022-10-25] MEDS: traZODone HCL 50 MG TAB PO SCH (21:04)
--- NOTE | 2022-10-26 02:35 | P.PN ---
Subjective Progress Note Date: 10/25/22 10/25/2022: Patient states her headache has much improved. It is down to 5/10. She feels very pleased. No new symptoms. Patient informed me that she is a recovering addict. She used to abuse prescription opiates in the past. 10/24/2022: Patient was seen for a follow-up. Patient continues to have very severe headache in the same location mentioned yesterday. No improvement at all. 10/23/2022: Patient was seen for a follow-up. Patient had undergone right temporal artery biopsy today. Patient continues to have severe pain. No improvement with the steroids. Patient states that for the last 2 years she had new-onset bilateral temporal headaches. However the right temporal, jaw and TMJ pain started 2 months ago. At present it is 10/10. It is a constant throbbing pain, and the jaw bone aches. About 4-5 times a day patient gets burning sensation inside the skull and she sweats profusely for a minute. Patient states that it feels like she is getting slammed by a sledgehammer. It hurts to look to the right side, or turning head to the right. There is throbbing in the right anterior neck region as well. She denies any nausea or vomiting, although light and noises sensitive. Patient states that it hurts to talk. Denies any headache on the left side. Patient states that she had a right jaw bone fracture 20 years ago. 10/22/2022: Patient was seen for a follow-up. Patient states she is still havin g headache, rates 10/10 pointing to the right pentecostalism and right facial region. She states that she feels tired. No pain on the left side of her head. Her hearing is still decreased on the right side with static feeling on the right side. No new concerns. 10/21/2022: Patient initially seen by Dr. Kam Faulkner. Please refer to his note for details. Patient is a 67-year-old female with right temporal headache/jaw pain/facial pain with elevated ESR. The right facial pain, and right temporal headache started on 10/05/2022, when she woke up with a headache. She also had complete loss of hearing in the right ear. This hearing loss lasted for 2 days, but now she has constant static in the right ear. Concern for temporal arteritis. Patient is on steroids orally. Patient undergoing temporal artery biopsy today. Patient states that her headache is 10/10. On day 1 of steroids, but when down to 8/10, but then it came back up and is 10/10. Patient denies any fever, denies any weight loss. She does get sometimes burning inside the head and she sweats. She felt it was her hot flashes. Patient states that she has history of chronic daily headaches for last 2 years. The headache lasts all day long. The headaches used to be bitemporal and also involves back of the head. She has chronic daily headaches for last 2 years. The above headache and facial pain is new. Patient states she has a "hole" in the right eye, doughnut-shaped. Objective - Vital Signs Vital signs: Vital Signs Temp 98 F 10/25/22 08:00 Pulse 69 10/25/22 08:00 Resp 16 10/25/22 08:00 BP 155/84 10/25/22 08:00 Pulse Ox 94 L 10/25/22 08:00 FiO2 21 10/23/22 09:46 Intake & Output 10/24/22 10/25/22 10/25/22 18:59 06:59 18:59 Intake Total 480 780 236 Balance 480 780 236 Intake: Oral 480 780 236 Other: Voiding Method Toilet # Voids 2 - Exam Patient is an elderly female, in no acute distress. Patient is alert awake oriented to time place and person. Speech and language functions are normal. Patient can name and repeat very well. No aphasia or dysarthria. Attention, concentration and fund of knowledge is adequate. On cranial nerve examination, pupils are equal, round and reacting to light, visual adler are full on confrontation, with no neglect on double simultaneous stimulation. Extraocular muscles are intact with no nystagmus. Face is symmetric, tongue protrudes to the midline. Palatal elevation and sensation normal. Her hearing is decreased significantly bilaterally for finger rubbing, almost appears equal bilaterally. Hearing appears fine for routine conversation. The shoulder shrug is normal, facial sensation normal. On muscle strength testing, there is no pronator drift. The strength is (right/left) deltoid 5/5, biceps 5/5, triceps 5/5, final assembler boat 4+/5-, hip flexion 4/4+, ankle dorsiflexion 5/5. Sensory to touch is equal with no neglect on double simultaneous stimulation. Cerebellar function showed no ataxia for [id number] testing. No dysdiadochokinesia. No ataxia for [id number]-ma-[id number] testing on either side. Tone and bulk of muscles normal. Gait deferred.. On general examination, there is no carotid bruit or murmur, S1-S2 audible. Chest is clear on consultation. Abdomen is soft nontender. No organomegaly, bowel sounds present. Peripheral pulses are present. No edema. - Labs CBC & Chem 7: 10/24/22 05:34 10/23/22 05:59 Assessment and Plan Assessment: This is a 67-year-old woman with new onset right temporal headache, and right facial pain with elevated ESR. Temporal arteritis ruled out. Temporal artery biopsy negative. Acute on chronic sphenoid sinusitis. Right sided weakness (on examination): No evidence of an acute stroke or mass on MRI. Leukocytosis seems reactive to steroids Coronary artery disease status post stent Hypertension Hyperlipidemia Fibromyalgia Plan: Right temporal artery biopsy negative for arteritis. We will taper down steroids rapidly. She will take 20 mg prednisone tomorrow, 10 mg on Friday and then stop. Continue Tegretol 100 mg twice a day. If needed, the dose can be increased further up. Continue Augmentin for 10 days. MRI of the brain with and without contrast 10/21/2022 showed no acute intracranial process. No intracranial mass, acute/subacute infarct or abnormal enhancement. Nonspecific white matter changes. I personally reviewed MRI, agree with the findings. CTA of head and neck revealed mild to moderate bilateral proximal internal carotid artery stenosis, left greater than right. No other significant abnormalities seen. Patient has noticed hearing loss. Recommend ENT consultation. Dr. Becker covering neurology service over the weekend. Please call for any concerns. Neurologically clear, if cleared by ENT.
[2022-10-26 04:16] VITALS: RESP 18
[2022-10-26] MEDS: ASPIRIN-ACET-CAFF 250-250-65MG 1 EACH TAB PO SCH ×2 (06:26→16:01)
[2022-10-26] MEDS: PANTOPRAZOLE 40 MG TABLET PO SCH (07:54)
[2022-10-26] MEDS: HYDROcodone/APAP 10-325MG 1 EACH TAB PO PRN ×2 (07:54→16:02)
[2022-10-26] MEDS: DOCUSATE 100 MG CAP PO SCH (07:55)
[2022-10-26] MEDS: amLODIPine 10 MG TAB PO SCH (07:55)
[2022-10-26] MEDS: LORATADINE 10 MG TAB PO SCH (07:55)
[2022-10-26] MEDS: carBAMazepine 200 MG TAB PO SCH (07:56)
[2022-10-26] MEDS: AMOXIC-POT CLAV 875-125MG 1 EACH TAB PO SCH (07:56)
[2022-10-26] MEDS: SERTRALINE 25 MG TAB PO SCH (07:57)
[2022-10-26 08:40] VITALS: BP 160/84; PULSE 71; TEMP 97.8
[2022-10-26 08:49] LABS: Basophils # (A) 0.02 X 10*3/uL (0.00-0.10); Basophils % (A) 0.1 %; Eosinophils # (A) 0.08 X 10*3/uL (0.04-0.35); Eosinophils % (A) 0.6 %; HCT 35.2 % (37.2-46.3); HGB 11.5 g/dL (12.0-15.0); Immature Grans, Automated 0.8 %; Lymphocytes # (A) 4.86 X 10*3/uL (0.90-5.00); MCH 28.9 pg (27.0-32.0); MCHC 32.7 g/dL (32.0-37.0); MCV 88.4 fL (80.0-97.0); Mean Platelet Volume 9.7 fL (9.5-12.2); Monocytes # (A) 1.08 X 10*3/uL (0.20-1.00); Monocytes % (A) 7.6 %; NRBC Per 100 WBC 0 /100 WBCS (0.0-0.0); Neutrophils # (A) 8.14 X 10*3/uL (1.80-7.70); Neutrophils % (A) 56.9 %; Platelet Count 473 X 10*3/uL (140-440); RBC 3.98 X 10*6/uL (4.10-5.20); RDW 14.7 % (11.5-14.5)
[2022-10-26] MEDS ORDERED: predniSONE 20 MG TAB PO SCH (09:00)
[2022-10-26 09:06] LABS: African American GFR (CKD) 76.7 (60.0-200.0); Anion Gap 9.5 mmol/L (10.00-18.00); BUN/Creat Ratio 28.67 Ratio (12.00-20.00); Blood Urea Nitrogen 25.8 mg/dL (9.0-27.0); Calcium 9.7 mg/dL (8.7-10.3); Carbon Dioxide 32.5 mmol/L (20.0-27.5); Non-African American GFR(CKD) 66.2 (60.0-200.0); Potassium 4.2 mmol/L (3.5-5.5)
[2022-10-26] MEDS ORDERED: LACTULOSE 20 GM/30 ML CUP PO ONE (11:45)
[2022-10-26 12:08] LABS: Erythrocyte Sedimentation Rate 26 mm/Hr (0-30)
--- NOTE | 2022-10-26 21:11 | P.DS ---
Providers Date of admission: 10/21/22 15:41 Attending physician: Wilfredo Bryant MD Consults: 10/19/22 19:04 Consult Physician Routine Consulting Provider: Kam Faulkner Consult Reason/Comments: Intractable headache Do you want consulting provider notified?: Yes 10/21/22 12:35 Consult Physician Urgent Consulting Provider: Tod Jones Consult Reason/Comments: right eye pain and headache Do you want consulting provider notified?: Yes 10/25/22 14:35 Consult Physician Urgent Consulting Provider: Judson Diaz Consult Reason/Comments: Sphenoid sinusitis Do you want consulting provider notified?: Yes Primary care physician: Marium Menezeslatia [facility] Course: Diagnoses: 1. Right sided temporal headaches, suspicious for temporal arteritis however bivesicular negative for arthritis. Most likely secondary to sphenoid sinusitis versus trigeminal neuralgia 2. Hypertension; 3. Hyperlipidemia; 4. COPD; not in exacerbation; 5. Depression/insomnia; up activation 6. History of Coronary artery disease; Hospital course: 67-year-old female that presents to the emergency room after being sent by her PCP Dr. Causey for evaluation. Patient was complaining from right temporal severe headache that was treated symptomatically and because of elevated ESR temporal arteritis was suspected, temporal artery biopsy was obtained eventually came back negative and steroids are tapered off, tomorrow her last dose of prednisone 10 mg by mouth 1 and patient is aware after that she will stop steroids. CT of the face showing sphenoid sinusitis also patient headache responded significantly to Tegretol started by neurologist which made it highly suspicious for trigeminal neuralgia. Her headache was suspected on admission 9-10/10 in severity with the treatment with Augmentin for sinusitis and Tegretol for trigeminal neuralgia her headache today was tolerable rated as 5/10 and at times goes down to 0/10 and also patient with no blurred vision. No other new complaints, no chest pain or dyspnea, no GI or urinary complaints. Patient was cleared for discharge by all consultants including neurologist patient will be discharged on short course of oral Augmentin and Tegretol pills Patient denies any other new symptoms. Problems and management plan were discussed with the patient and he verbalized understanding and acceptance Patient was found stable and can be discharged home in guarded prognosis however he needs follow-up as an outpatient. Patient was instructed to follow up with PCP Dr. causey within one week and patient agrees Patient was instructed to follow up with ENT specialist Dr. Diaz and neurologist Dr. Mays within one week and she agrees to follow and make an appointment as today is weakened Physical exam Gen: patient is a AAOx3, no distress CVS: S1-S2, RRR, no murmur Lungs: B/L CTA, no wheezing Abdomen: soft, no distention, no tenderness, positive bowel sounds Extremity: no leg edema or induration Time spent more than 35 minutes Plan - Discharge Summary New Discharge Prescriptions: New Amoxic-Pot Clav 875-125Mg [Augmentin 875-125] 1 each PO Q12HR 8 Days #16 tab Loratadine [Claritin] 10 mg PO DAILY #14 tab Docusate [Colace] 100 mg PO BID #60 cap amLODIPine [Norvasc] 5 mg PO DAILY #30 tab predniSONE 10 mg PO DAILY #1 tab carBAMazepine [TEGretol] 100 mg PO BID #30 tab Acetaminophen Tab [Tylenol] 650 mg PO Q6HR PRN tab PRN Reason: Mild Pain Or Fever > 100.5 Continue traZODone HCL 150 mg PO HS 30 Days tablet Omeprazole 40 mg PO DAILY Melatonin 10 mg PO HS Sertraline [Zoloft] 75 mg PO DAILY 30 Days tab Atorvastatin Calcium 20 mg PO HS [id number] [phone] [Excedrin] 3 tab PO BID Discontinued amLODIPine BESYLATE 5 mg PO DAILY Discharge Medication List Sertraline [Zoloft] 75 mg PO DAILY 30 Days tab 04/17/22 [Rx] traZODone HCL 150 mg PO HS 30 Days tablet 04/17/22 [Rx] [id number] [phone] [Excedrin] 3 tab PO BID 10/17/22 [History] Atorvastatin Calcium 20 mg PO HS 10/17/22 [History] Melatonin 10 mg PO HS 10/17/22 [History] Omeprazole 40 mg PO DAILY 10/17/22 [History] Acetaminophen Tab [Tylenol] 650 mg PO Q6HR PRN tab 10/26/22 [Rx] Amoxic-Pot Clav 875-125Mg [Augmentin 875-125] 1 each PO Q12HR 8 Days #16 tab 10/26/22 [Rx] Docusate [Colace] 100 mg PO BID #60 cap 10/26/22 [Rx] Loratadine [Claritin] 10 mg PO DAILY #14 tab 10/26/22 [Rx] amLODIPine [Norvasc] 5 mg PO DAILY #30 tab 10/26/22 [Rx] carBAMazepine [TEGretol] 100 mg PO BID #30 tab 10/26/22 [Rx] predniSONE 10 mg PO DAILY #1 tab 10/26/22 [Rx] Follow up Appointment(s)/Referral(s): Rigo Leal MD [REFERRING] - 1 Week (neurologist) Marium Mazariegos MD [Primary Care Provider] - 1-2 days Judson Diaz MD [STAFF PHYSICIAN] - 1 Week (ENT specialist ) Patient Instructions/Handouts: Sinusitis (GEN) Activity/Diet/Wound Care/Special Instructions: heart healthy diet activity is restricted till you see your doctor Discharge Disposition: HOME SELF-CARE
== END 2022-10-26 17:38 | disposition home or self-care (01) | DRG 145 ==
LOC: EC 13:15 → 6NMEDSUR 17:09 → OBSVTOIN 10-21 15:41
PROVIDERS: ADMIT Internal Medicine; ATTEND Internal Medicine
PROC: 03BS0ZX Excision of Right Temporal Artery, Open Approach, Diagnostic (ICD-10-PCS; principal; 2022-10-23 13:00)
DX: J01.30 Acute sphenoidal sinusitis, unspecified (principal); G50.0 Trigeminal neuralgia; E11.36 Type 2 diabetes mellitus with diabetic cataract; J44.9 Chronic obstructive pulmonary disease, unspecified; F11.11 Opioid abuse, in remission; G31.9 Degenerative disease of nervous system, unspecified; J32.3 Chronic sphenoidal sinusitis; Z28.310 Unvaccinated for COVID-19; I65.23 Occlusion and stenosis of bilateral carotid arteries; R68.84 Jaw pain; H92.01 Otalgia, right ear; H57.11 Ocular pain, right eye; D72.829 Elevated white blood cell count, unspecified; I10 Essential (primary) hypertension; M79.7 Fibromyalgia; E78.5 Hyperlipidemia, unspecified; H26.9 Unspecified cataract; I25.10 Atherosclerotic heart disease of native coronary artery without angina pectoris; N95.1 Menopausal and female climacteric states; M81.0 Age-related osteoporosis without current pathological fracture; M41.9 Scoliosis, unspecified; G89.29 Other chronic pain; M54.9 Dorsalgia, unspecified; H91.91 Unspecified hearing loss, right ear; G47.00 Insomnia, unspecified; F32.A Depression, unspecified; F41.9 Anxiety disorder, unspecified; F17.210 Nicotine dependence, cigarettes, uncomplicated; Z71.6 Tobacco abuse counseling; Z79.82 Long term (current) use of aspirin; Z79.899 Other long term (current) drug therapy; Z95.5 Presence of coronary angioplasty implant and graft; Z88.8 Allergy status to other drugs, medicaments and biological substances; Z88.6 Allergy status to analgesic agent; Z91.041 Radiographic dye allergy status
CPT/HCPCS: 36415; 70450; 70486; 70496; 70498; 70553; 80048; 82550; 84443; 85025; 85652; 86140; 88305; 94760; 96374; 96375; 99285

== ENCOUNTER → 2022-12-26 | Day surgery (SDC) | payer MEDICARE ==
[2022-12-23 12:44] VITALS: BMI 16.6
[~2022-12-26] MED LIST changes: -ASPIRIN 325 MG TAB PO STA; -ATORVASTATIN 80 MG TAB PO STA; +HEPARIN SODIUM 1,000 UN/ML (10ML VL) ONE; +HYDROmorphone 0.5 MG/0.5 ML SYRINGE IVP ONE; +IOPAMIDOL-370 100ML BTL INJ ONE; +LIDOCAINE 1% INJ 10MG/ML (5 ML VIAL-PF) SQ ONE; +MIDAZOLAM 2 MG/2 ML VIAL IVP ONE; +RX INFO: IV CONTRAST WAS GIVEN 1 EACH MISC MISCELLANE PRN; +SODIUM CHLORIDE 0.9% 1,000 ML IV SCH; -SODIUM CHLORIDE 0.9% 1,000 ML in EMPTY BAG 1 BAG IV ONE; +SODIUM CHLORIDE 0.9% 1,000 ML in EMPTY BAG 1 BAG IV SCH; +VERAPAMIL 2.5 MG/ML 2 ML AMP ONE; +VERAPAMIL SYRINGE (5 MG/10 ML) INTRAARTER ONE; +fentaNYL (PF) 50 MCG/ML 2 ML AMP ONE
[2022-12-26 06:23] VITALS: TEMP 97.7
[2022-12-26 06:37] LABS: Basophils % (A) 0 %; Eosinophils % (A) 0 %; Lymphocytes # (A) 1.9 k/uL (1.0-4.8); Lymphocytes % (A) 23 %; MCH 28.9 pg (25.0-35.0); MCHC 30.8 g/dL (31.0-37.0); MCV 93.8 fL (80.0-100.0); Mean Platelet Volume 7.6; Monocytes # (A) 0.3 k/uL (0-1.0); Monocytes % (A) 3 %; Neutrophils # (A) 5.9 k/uL (1.3-7.7); Neutrophils % (A) 72 %; Platelet Count 423 k/uL (150-450); RBC 4.16 m/uL (3.80-5.40); RDW 15.2 % (11.5-15.5); WBC 8.2 k/uL (3.8-10.6)
[2022-12-26 06:55] LABS: Calcium 9.7 mg/dL (8.4-10.2); Potassium 4.3 mmol/L (3.5-5.1)
[2022-12-26] MEDS: HEPARIN SODIUM 1,000 UN/ML (10ML VL) IVP ONE ×2 (07:45→07:50)
[2022-12-26] MEDS: fentaNYL (PF) 50 MCG/ML 2 ML AMP IVP ONE ×2 (07:47→07:54)
--- NOTE | 2022-12-26 08:15 | P.PCN ---
Date of Procedure: 12/26/22 Operative Findings: CARDIAC CATHETERIZATION PERFORMING PHYSICIAN: Juventino Alex MD, RPVI PROCEDURE PERFORMED: 1. Selective right and left coronary angiogram 2. Left heart catheterization 3. iFR of both the first obtuse marginal branch and left circumflex coronary artery INDICATION: This is a 67-year-old female patient with CAD and known chronic total occlusion of the RCA and prior stenting of the LCx was seen in the office recently for intermittent episodes of chest discomfort with exertion concerning for angina COMPLICATION: None APPROACH: Right radial artery LEVEL OF SEDATION: Moderate with a sedation length of 24 minutes PROCEDURE DESCRIPTION: After obtaining an informed consent, the patient was brought to cardiac clinical laboratory manager. Local anesthesia was performed using lidocaine subcutaneously. The right radial artery was cannulated using Seldinger technique, the guidewire passed easily, following that we advanced a 5-[place] [employer] sheath dilator assembly, the wire and dilator were removed and sheath was flushed. Following that, 2 mg of verapamil along with 5000 unit heparin were given. Selective right and left coronary angiogram using a 6-[place] [employer] JR4 and JL 3.5 catheters. Following that we did left heart catheterization using 6-[place] [employer] pigtail catheter. The procedure was completed there was no complication. SELECTIVE CORONARY ANGIOGRAM: The right coronary artery: Large caliber vessel and a dominant vessel. The RCA is chronically occluded by the proximal portion and fills by collateral from the left coronary system as well as bridging collateral. Left main: Large caliber vessel. Its angiographically normal. Bifurcates into a codominant left circumflex and left anterior descending artery The left circumflex: Large caliber vessel and a codominant vessel. The proximal LCx has a lesion appeared to be in the range of 20-30%. Gives rises into OM1 which has intermediate lesion appeared to be in the range of 50%. We did an FFR and that came in to be non-ischemic. After that the left circumflex is a stented and the stent is patent. Gives rises into OM to which is a small caliber vessel appears to be normal. Distally the circumflex is normal and bifurcates into PDA and PLV branches both appeared to be angiographically normal The left anterior descending artery: The proximal LAD appeared to be angiographically normal. The mid and distal LAD appears to be normal as well. The LAD gives rises into a diagonal branch which appeared to be normal as well. HEMODYNAMICS: The LVEDP was 4 mmHg was no significant gradient across aortic valve IFR OF THE OM AND LCX Anticoagulation was initiated using heparin with continuous ACT monitoring. After zeroing the Doppler wire and equalizing between the Doppler wire and guiding catheter which was JL 3.5 guiding catheter we did iFR and that came in to be 0.94. OM1 an 0.964 the left circumflex. The procedure was completed was no complication CONCLUSION: 1. Chronic total occlusion of the RCA which fills by ipsilateral and contralateral collateral. This finding is known from before 2. Intermediate lesion involving OM1. iFR was nonischemic. Intermediate lesion involving the LCx. iFR was also nonischemic POSTPROCEDURE MANAGEMENT: Maximize medical treatment and follow-up with the patient
[2022-12-26 08:27] VITALS: RESP 16
[2022-12-26 10:03] VITALS: PULSE 80
[2022-12-26 11:29] VITALS: BP 118/59
== END ==
LOC: CATHCVL 05:49
PROVIDERS: ATTEND Internal Medicine Interventional Cardiology
DX: I25.82 Chronic total occlusion of coronary artery (principal); I10 Essential (primary) hypertension; E78.5 Hyperlipidemia, unspecified; F17.210 Nicotine dependence, cigarettes, uncomplicated; Z79.82 Long term (current) use of aspirin; Z79.899 Other long term (current) drug therapy
CPT/HCPCS: 93458; 93799; 80048; 85025; 99152; 99153; C1887; C1769 ×2; C1894; J2250; J2001; J3010; J1644; J1170; Q9967

== ENCOUNTER 2023-02-07 12:27 | Emergency (ER) | payer MEDICARE ==
--- NOTE | 2023-02-07 13:37 | XR ---
EXAMINATION TYPE: XR KUB DATE OF EXAM: 02/07/2023 COMPARISON: NONE HISTORY: Abdominal pain TECHNIQUE: Single upright KUB image of the abdomen is obtained FINDINGS: Small bowel demonstrates no evidence for dilatation or air fluid levels. Gas and fecal material is seen in non-distended colon. No convincing evidence for pneumoperitoneum. Incidental pelvic phleboliths. The lung bases are clear. The osseous structures are intact. Levoscoliotic curvature of the lumbar spine. No radiopaque foreign body. Visualized lung bases are clear. IMPRESSION: Overall nonobstructive bowel gas pattern.
[2023-02-07] MEDS ORDERED: HYDROmorphone 0.5 MG/0.5 ML SYRINGE IVP STA (13:39)
[2023-02-07] MEDS ORDERED: methylPREDNISolone SOD SUCCI 125 MG/2 ML VIAL IV STA ×2 (13:39→15:57)
[2023-02-07] MEDS ORDERED: diphenhydrAMINE 50 MG/ML 1 ML VIAL IVP STA (13:39)
[2023-02-07] MEDS ORDERED: SODIUM CHLORIDE 0.9% 1,000 ML IV STA (13:39)
[2023-02-07] MEDS ORDERED: FAMOTIDINE 20 MG/2 ML VIAL IV STA (13:39)
[2023-02-07] MEDS ORDERED: ONDANSETRON 4 MG/2 ML VIAL IVP STA (13:39)
[2023-02-07 13:40] LABS: Basophils % (A) 0 %; Eosinophils # (A) 0.1 k/uL (0-0.7); Eosinophils % (A) 1 %; HCT 34.1 % (34.0-46.0); HGB 10.8 gm/dL (11.4-16.0); Lymphocytes # (A) 2.1 k/uL (1.0-4.8); Lymphocytes % (A) 34 %; MCH 28.3 pg (25.0-35.0); MCHC 31.6 g/dL (31.0-37.0); MCV 89.5 fL (80.0-100.0); Mean Platelet Volume 8.1; Monocytes # (A) 0.3 k/uL (0-1.0); Monocytes % (A) 5 %; Neutrophils # (A) 3.6 k/uL (1.3-7.7); Neutrophils % (A) 58 %; Platelet Count 271 k/uL (150-450); RBC 3.81 m/uL (3.80-5.40); RDW 14.8 % (11.5-15.5); WBC 6.2 k/uL (3.8-10.6)
[2023-02-07 13:52] LABS: Albumin 3.8 g/dL (3.5-5.0); Calcium 8.9 mg/dL (8.4-10.2); Potassium 3.7 mmol/L (3.5-5.1); Total Bilirubin 0.2 mg/dL (0.2-1.3); Total Protein 6.6 g/dL (6.3-8.2)
--- NOTE | 2023-02-07 14:27 | ED ---
General Adult HPI - General Chief complaint: Abdominal Pain Stated complaint: diarrhea - sent by pcp Time Seen by Provider: 02/07/23 13:32 Source: patient Mode of arrival: ambulatory Limitations: no limitations - History of Present Illness Initial comments: Sheet 67-year-old female with a past medical history of CAD, COPD, fibromyalgia, hyperlipidemia, hypertension, chronic back pain presents to the emergency room for a chief complaint of abdominal pain. Patient states for the past 3 weeks she has had generalized abdominal pain that worsens after eating. The pain is otherwise been constant and doesn't seem to go away. She has diarrhea after eat ing as well. Diarrhea occurs 30 minutes to an hour after eating. She does not have diarrhea otherwise. She denies any blood in diarrhea or emesis. She admits to nausea but denies vomiting. Patient saw Dr. Virgen prior to presentation and presents with an outpatient order for a computed tomography scan.Patient has no other complaints at this time including shortness of breath, chest pain, vomiting, headache, or visual changes. - Related Data Home Medications Medication Instructions Recorded Confirmed [id number] [id number] 3 tab PO BID 10/17/22 12/26/22 [Excedrin] Atorvastatin Calcium 20 mg PO HS 10/17/22 12/26/22 Melatonin 10 mg PO HS 10/17/22 12/26/22 Omeprazole 40 mg PO DAILY 10/17/22 12/26/22 Aspirin EC [Ecotrin Low Dose] 81 mg PO DAILY 12/23/22 12/26/22 Famotidine [Pepcid] 20 mg PO HS 12/23/22 12/26/22 Sertraline [Zoloft] 150 mg PO DAILY 12/23/22 12/26/22 hydrOXYzine HCL 25 mg PO HS 12/23/22 12/26/22 Previous Rx's Medication Instructions Recorded traZODone HCL 150 mg PO HS 30 Days tablet 04/17/22 Loratadine [Claritin] 10 mg PO DAILY #14 tab 10/26/22 amLODIPine [Norvasc] 5 mg PO DAILY #30 tab 10/26/22 carBAMazepine [TEGretol] 100 mg PO BID #30 tab 10/26/22 Dicyclomine [Bentyl] 20 mg PO TID PRN #10 tablet 02/07/23 Ondansetron Odt [Zofran Odt] 4 mg PO Q8HR PRN #14 tab 02/07/23 Allergies Allergy/AdvReac Type Severity Reaction Status Date / Time ibuprofen AdvReac NIGHTMARES Verified 02/07/23 12:47 Iodinated Contrast Media AdvReac Nausea & Verified 02/07/23 12:47 [Iodinated Contrast Media - Vomiting IV Dye] povidone-iodine AdvReac Nausea & Verified 02/07/23 12:47 [From Betadine] Vomiting soap [From Betadine] AdvReac Nausea & Verified 02/07/23 12:47 Vomiting Review of Systems ROS Statement: Those systems with pertinent positive or pertinent negative responses have been documented in the HPI. ROS Other: All systems not noted in ROS Statement are negative. Past Medical History Past Medical History: Coronary Artery Disease (CAD), Chest Pain / Angina, COPD, Fibromyalgia, Hyperlipidemia, Hypertension Additional Past Medical History / Comment(s): Chronic back pain, DDD, bulging discs, scoliosis, osteoporosis., PAST HX JAW FX RT-CAUSES HEADACHES-TAKES TEGRETOL History of Any Multi-Drug Resistant Organisms: None Reported Past Surgical History: Breast Surgery, Heart Catheterization With Stent, Hysterectomy, Orthopedic Surgery Additional Past Surgical History / Comment(s): Back injections, L patellar surgery, R carpal tunnel release, L breast benign biopsy, sinus surgery, EGD Past Anesthesia/Blood Transfusion Reactions: No Reported Reaction Date of Last Stent Placement:: 05/10/20 Past Psychological History: Anxiety, Depression Smoking Status: Current every day smoker Past Alcohol Use History: None Reported Past Drug Use History: None Reported - Past Family History Mother Family Medical History: Cancer Additional Family Medical History / Comment(s): Mother had lupus and TB Father History Unknown: Yes General Exam Limitations: no limitations General appearance: alert, in no apparent distress Head exam: Present: atraumatic Eye exam: Present: normal appearance, PERRL, EOMI. Absent: scleral icterus, conjunctival injection ENT exam: Present: normal oropharynx, mucous membranes dry Neck exam: Present: normal inspection, full ROM. Absent: tenderness Respiratory exam: Present: normal lung sounds bilaterally. Absent: respiratory distress Cardiovascular Exam: Present: regular rate, normal rhythm, normal heart sounds GI/Abdominal exam: Present: soft, normal bowel sounds. Absent: distended, tenderness Neurological exam: Present: alert Course Vital Signs 05/12/23 12:48 Temperature 97.6 F Pulse Rate 84 Respiratory 17 Rate Blood Pressure 126/73 O2 Sat by Pulse 96 Oximetry Medical Decision Making - Medical Decision Making Vitals are stable. Exam is a moderately tender abdomen. CBC is unremarkable. CMP does show some evidence of dehydration, patient given fluids here in the emergency room. Urinalysis is unremarkable. CT abdomen and pelvis did show pancolitis without abscess or free air. There is also atherosclerosis of bilateral common iliac arteries and throughout the abdominal aorta. There is also a 3.1 cm aortic aneurysm at the thoracoarotic junction and 3.2 cm infrarenal abdominal aortic aneurysm. Patient was given pain medication and had significant improvement in symptoms. There is no GI physician in the hospital this weekend. Patient stable for discharge. Computed tomography scan results and history reviewed with Dr. Jaime. Patient was given IV site Medrol before discharge. She will be sent home with Zofran. She should follow up with GI and her primary care doctor. She was encouraged to increase fluid intake this weekend Was pt. sent in by a medical professional or institution (, PA, BEAR KEEPER, urgent care, hospital, or [facility]...) When possible be specific @ -Dr Wilcox Did you speak to anyone other than the patient for history (EMS, parent, family, police, friend...)? What history was obtained from this source @ -[No] Did you review nursing and triage notes (agree or disagree)? Why? @ -[I reviewed and agree with nursing and triage notes] Were old charts reviewed (outside hosp., previous admission, EMS record, old EKG, old radiological studies, urgent care reports/EKG's, [facility] records)? Report findings @ -[No old charts were reviewed] Differential Diagnosis (chest pain, altered mental status, abdominal pain women, abdominal pain men, vaginal bleeding, weakness, fever, dyspnea, syncope, headache, dizziness, GI bleed, back pain, seizure, CVA, palpatations, mental health)? @ -Differential Abdominal Pain Women: Appendicitis, Cholecystitis, diverticulosis, ischemic bowel, pancreatitis, hepatitis, UTI, gastroenteritis, AAA, incarcerated hernia, bowel obstruction, c onstipation, inflammatory bowel, hepatitis, peptic ulcer disease, splenic infarction, perforated viscus, vulvitis, ovarian torsion, PID, kidney stone, placenta abruption, this is not meant to be an all-inclusive list EKG interpreted by me (3pts min.). @ -[As above] X-rays interpreted by me (1pt min.). @ -XR KUB CT interpreted by me (1pt min.). @ -Abdomen and pelvis with contrast U/S interpreted by me (1pt. min.). @ -[None done] What testing was considered but not performed or refused? (CT, X-rays, U/S, labs)? Why? @ -[None] What meds were considered but not given or refused? Why? @ -[None] Did you discuss the management of the patient with other professionals (professionals i.e. , PA, BEAR KEEPER, lab, RT, psych nurse, social services specialist, clerk secretary, teacher, admissions officer, director case management)? Give summary @ -Dr. Jaime Was smoking cessation discussed for >3mins.? @ -[No] Was critical care preformed (if so, how long)? @ -[No] Were there social determinants of health that impacted care today? How? (Homelessness, low income, unemployed, alcoholism, drug addiction, transportation, low edu. Level, literacy, decrease access to med. care, halfway, r ehab)? @ -[No] Was there de-escalation of care discussed even if they declined (Discuss DNR or withdrawal of care, Hospice)? DNR status @ -[No] What co-morbidities impacted this encounter? (DM, HTN, Smoking, COPD, CAD, Cance r, CVA, ARF, Chemo, Hep., AIDS, mental health diagnosis, sleep apnea, morbid obesity)? @ -Hypertension, COPD, CAD Was patient admitted / discharged? Hospital course, mention meds given and route, prescriptions, significant lab abnormalities, going to OR and other pertinent info. @ -See above Undiagnosed new problem with uncertain prognosis? @ -[No] Drug Therapy requiring intensive monitoring for toxicity (Heparin, Nitro, Insulin, Cardizem)? @ -[No] Were any procedures done? @ -[No] Diagnosis/symptom? @ -Colitis, abdominal pain, diarrhea Acute, or Chronic, or Acute on Chronic? @ -Acute Uncomplicated (without systemic symptoms) or Complicated (systemic symptoms)? @ -Uncomplicated Side effects of treatment? @ -[No] Exacerbation, Progression, or Severe Exacerbation? @ -[No] Poses a threat to life or bodily function? How? (Chest pain, USA, OR, pneumonia, PE, COPD, DKA, ARF, appy, cholecystitis, CVA, Diverticulitis, Homicidal, Suicidal, threat to staff... and all critical care pts) @ -[No] - Lab Data Result diagrams: 02/07/23 13:29 02/07/23 13:29 Lab Results 02/07/23 02/07/23 02/07/23 Range/Units 13:29 13:29 14:40 WBC 6.2 (3.8-10.6) k/uL RBC 3.81 (3.80-5.40) m/uL Hgb 10.8 L (11.4-16.0) gm/dL Hct 34.1 (34.0-46.0) % MCV 89.5 (80.0-100.0) fL MCH 28.3 (25.0-35.0) pg MCHC 31.6 (31.0-37.0) g/dL RDW 14.8 (11.5-15.5) % Plt Count 271 (150-450) k/uL MPV 8.1 Neutrophils % 58 % Lymphocytes % 34 % Monocytes % 5 % Eosinophils % 1 % Basophils % 0 % Neutrophils # 3.6 (1.3-7.7) k/uL Lymphocytes # 2.1 (1.0-4.8) k/uL Monocytes # 0.3 (0-1.0) k/uL Eosinophils # 0.1 (0-0.7) k/uL Basophils # 0.0 (0-0.2) k/uL Sodium 140 (137-145) mmol/L Potassium 3.7 (3.5-5.1) mmol/L Chloride 111 H (98-107) mmol/L Carbon Dioxide 23 (22-30) mmol/L Anion Gap 6 mmol/L BUN 18 H (7-17) mg/dL Creatinine 1.21 H (0.52-1.04) mg/dL Est GFR (CKD-EPI)AfAm 54 (>60 ml/min/1.73 sqM) Est GFR (CKD-EPI)NonAf 47 (>60 ml/min/1.73 sqM) Glucose 98 (74-99) mg/dL Calcium 8.9 (8.4-10.2) mg/dL Total Bilirubin 0.2 (0.2-1.3) mg/dL AST 19 (14-36) U/L ALT 9 (4-34) U/L Alkaline Phosphatase 118 (38-126) U/L Total Protein 6.6 (6.3-8.2) g/dL Albumin 3.8 (3.5-5.0) g/dL Amylase 77 (30-110) U/L Lipase 296 (23-300) U/L Urine Color Yellow Urine Appearance Clear (Clear) Urine pH 6.0 (5.0-8.0) Ur Specific [place] 1.033 (1.001-1.035) Urine Protein 1+ H (Negative) Urine Glucose (UA) Negative (Negative) Urine Ketones Negative (Negative) Urine Blood Negative (Negative) Urine Nitrite Negative (Negative) Urine Bilirubin Negative (Negative) Urine Urobilinogen <2.0 (<2.0) mg/dL Ur Leukocyte Esterase Negative (Negative) Urine RBC 1 (0-5) /hpf Urine WBC 1 (0-5) /hpf Ur Squamous Epith Cells 1 (0-4) /hpf Urine Mucus Occasional H (None) /hpf Disposition Clinical Impression: Abdominal pain, Diarrhea, Colitis Disposition: HOME SELF-CARE Condition: Good Instructions (If sedation given, give patient instructions): Abdominal Pain (ED) Additional Instructions: Please follow-up with your primary care provider on Friday. Follow up with GI as well. Take Zofran as needed for nausea. Take Bentyl as needed for pain. Return to the emergency room for any worsening symptoms. Prescriptions: Dicyclomine [Bentyl] 20 mg PO TID PRN #10 tablet PRN Reason: abdominal pain Ondansetron Odt [Zofran Odt] 4 mg PO Q8HR PRN #14 tab PRN Reason: Nausea Is patient prescribed a controlled substance at d/c from ED?: No Referrals: Marium Mazariegos MD [Primary Care Provider] - 1-2 days Charla Cornelius MD [STAFF PHYSICIAN] - 1-2 days Time of Disposition: 16:13
[2023-02-07 15:15] LABS: Appearance,Urine Clear (Clear); Bilirubin,Urine Negative (Negative); Blood,Urine Negative (Negative); Color,Urine Yellow; Glucose,Urine (UA) Negative (Negative); Ketones,Urine Negative (Negative); Leukocyte Esterase,Urine Negative (Negative); Mucus,Urine Occasional /hpf; Nitrite,Urine Negative (Negative); Protein,Urine 1+ (Negative); RBC,Urine 1 /hpf (0-5); Specific Gravity,Urine 1.033 (1.001-1.035); Squamous Epithelial Cell,Urine 1 /hpf (0-4); Urobilinogen,Urine <2.0 mg/dL (<2.0); WBC,Urine 1 /hpf (0-5)
--- NOTE | 2023-02-07 15:17 | CT ---
EXAMINATION TYPE: CT abdomen pelvis w con DATE OF EXAM: 02/07/2023 COMPARISON: 05/06/2022 HISTORY: 67-year-old female pain, diarrhea x 3 weeks TECHNIQUE: Contiguous axial scanning of the abdomen and pelvis following administration of 80 ml Isov ue 300 IV contrast. Delayed images through the kidneys and coronal/sagittal reconstructions performe d. CT DLP: 382.4 mGycm Automated exposure control for dose reduction was used. FINDINGS: Heart normal size without pericardial effusion. RCA coronary calcifications are present. Mi ld dependent atelectasis in the posterior lung bases. There is aneurysm of 3.1 cm of the aorta at the thoracoabdominal junction versus 3.0 cm on 05/06/2022. No focal liver lesion or biliary ductal dilatation. Portal venous system is patent. Gallbladder, adrenal glands, left kidney, spleen, inferior splenule, and pancreas appear within bunny l limits. On delayed scan, there is no excretion of contrast from the right kidney. Possible proximal right yasir al artery stenosis. No hydronephrosis/obstruction is seen along the course of the right ureter. Moderate atherosclerotic plaquing calcifications throughout the abdominal aorta. Fusiform aneurysm in frarenal abdominal aorta up to 3.2 cm. Segmental moderate to severe atherosclerotic narrowing within the proximal bilateral common iliac arteries. No dilated small bowel, free fluid, or free air. Normal appendix. There is moderate pancolonic wall thickening with mucosal hyperemia. Changes more extensive distally by involving the entire colon. Mild pericolonic inflammation also noted. Scattered liquid stool. Bladder nondistended. Uterus surgically absent. Multiple pelvic phleboliths. Suspected visualization of the left ovary. Right ovary not clearly identified. No abnormal fluid collection the pelvis or pelvic lymphadenopathy. Bones: Moderate degenerative disc disease L5-S1. No osseous destructive process. IMPRESSION: 1. MODERATE INFECTIOUS OR INFLAMMATORY PANCOLITIS. CLINICALLY CORRELATE. NO ABSCESS OR FREE AIR. 2. ATHEROSCLEROTIC CALCIFICATIONS THROUGHOUT THE ABDOMINAL AORTA AND COMMON ILIAC ARTERIES. THERE IS A 3.1 CM AORTIC ANEURYSM AT THE THORACOABDOMINAL JUNCTION. 3.2 CM INFRARENAL AAA. 3. MODERATE TO SEVERE SEGMENTAL STENOSES BILATERAL PROXIMAL COMMON ILIAC ARTERIES ON BOTH SIDES.
[2023-02-07 16:47] VITALS: RESP 18
[2023-02-07 16:49] VITALS: BP 122/78; PULSE 89; TEMP 97.7
== END 2023-02-07 16:35 | disposition home or self-care (01) ==
LOC: EC 12:27
DX: K52.9 Noninfective gastroenteritis and colitis, unspecified (principal); I10 Essential (primary) hypertension; I25.10 Atherosclerotic heart disease of native coronary artery without angina pectoris; J44.9 Chronic obstructive pulmonary disease, unspecified; F32.A Depression, unspecified; F41.9 Anxiety disorder, unspecified; E78.5 Hyperlipidemia, unspecified; F17.200 Nicotine dependence, unspecified, uncomplicated; Z79.82 Long term (current) use of aspirin; Z79.899 Other long term (current) drug therapy; Z88.6 Allergy status to analgesic agent; Z88.8 Allergy status to other drugs, medicaments and biological substances; Z91.041 Radiographic dye allergy status; Z91.09 Other allergy status, other than to drugs and biological substances
CPT/HCPCS: 36415; 80053; 82150; 83690; 85025; 81001; 74018; 74177; 99284; 96374; 96375 ×4; 96361; J1200; J2930; J2405; J1170; Q9967

== ENCOUNTER 2023-02-25 08:37 | Day surgery (SDC) | payer MEDICARE ==
[2023-02-20 12:09] VITALS: BMI 15.7
[~2023-02-25 08:37] MED LIST changes: -ALPRAZolam 0.25 MG TAB PO PRN; -ALPRAZolam 0.5 MG TAB PO PRN; -HEPARIN SODIUM 1,000 UN/ML (10ML VL) ONE; -HYDROmorphone 0.5 MG/0.5 ML SYRINGE IVP ONE; -IOPAMIDOL-370 100ML BTL INJ ONE; +LACTATED RINGERS 1,000 ML IV SCH; +LIDOCAINE 1% (10MG/ML) FOR IV START INTRADERMA PRN; -LIDOCAINE 1% INJ 10MG/ML (5 ML VIAL-PF) SQ ONE; -MIDAZOLAM 2 MG/2 ML VIAL IVP ONE; -NITROGLYCERIN SL TABS 0.4 MG TAB SUBLINGUAL PRN; -RX INFO: IV CONTRAST WAS GIVEN 1 EACH MISC MISCELLANE PRN; -SODIUM CHLORIDE 0.9% 1,000 ML IV SCH; -SODIUM CHLORIDE 0.9% 1,000 ML in EMPTY BAG 1 BAG IV SCH; -VERAPAMIL 2.5 MG/ML 2 ML AMP ONE; -VERAPAMIL SYRINGE (5 MG/10 ML) INTRAARTER ONE; -fentaNYL (PF) 50 MCG/ML 2 ML AMP ONE
[2023-02-25 09:15] VITALS: RESP 16; TEMP 98.2
[2023-02-25] MEDS ORDERED: LIDOCAINE 2% INJ 20 MG/ML (2 ML VIAL) ONE (09:24)
[2023-02-25] MEDS ORDERED: PROPOFOL 10 MG/ML 20 ML VIAL IV ONE (09:24)
--- NOTE | 2023-02-25 09:34 | P.PCN ---
Date of Procedure: 02/25/23 Procedure(s) Performed: BRIEF HISTORY: Patient is a 67-year-old, pleasant, white female scheduled for an upper endoscopy as a part of evaluation of epigastric pain and diarrhea of several months duration. She usually has vomited be from 5-6 a day which are loose to watery in consistency. She did have a colonoscopy in May 2022 was unremarkable.. PROCEDURE PERFORMED: Esophagogastroduodenoscopy with biopsy. PREOPERATIVE DIAGNOSIS: Chronic epigastric pain and diarrhea of several months duration. IV sedation per anesthesia. PROCEDURE: After informed consent was obtained, the patient was brought into the endoscopy unit. IV sedation was administered by Anesthesia under continuous monitoring. Initially the Olympus GIF-140 video endoscope was inserted into the mouth. Esophagus intubated without any difficulty. It was gradually advanced into the stomach and duodenum and carefully examined. The bulb and the second part of the duodenum appeared normal. Biopsies were done from the duodenum to rule out celiac The scope at this time was withdrawn to the stomach, adequately insufflated with air, and upon careful examination, mucosa of the antrum, body, and diffuse gastritis and biopsies were done from this area. Mucosa of the cardia and the fundus appeared normal. The scope was then withdrawn into the esophagus. Small hiatal hernia noted. The GE junction was located at 39 cm from the incisors. The esophagus appeared normal. There were no erosions or ulcerations seen, biopsies were done from the distal esophagus and the patient tolerated the procedure well. IMPRESSION: 1. Diffuse antral gastritis. 2. Small hiatal hernia. RECOMMENDATIONS: The findings of this examination were discussed with the patient as well as a family. She was advised to follow with the biopsy results. In the meantime she will continue with dicyclomine 10 mg 3 times daily as well as omeprazole 40 mg daily. She'll be seen in office in 3-4 weeks.
[2023-02-25 09:48] VITALS: PULSE 77
[2023-02-25 10:06] VITALS: BP 126/78
== END 2023-02-25 10:24 | disposition home or self-care (01) ==
LOC: ORWHC2ENDO 08:37
PROVIDERS: ATTEND Internal Medicine Gastroenterology
DX: K29.50 Unspecified chronic gastritis without bleeding (principal); K44.9 Diaphragmatic hernia without obstruction or gangrene; I10 Essential (primary) hypertension; E78.5 Hyperlipidemia, unspecified; J44.9 Chronic obstructive pulmonary disease, unspecified; F17.210 Nicotine dependence, cigarettes, uncomplicated; K21.9 Gastro-esophageal reflux disease without esophagitis; M79.7 Fibromyalgia; F41.8 Other specified anxiety disorders; Z88.8 Allergy status to other drugs, medicaments and biological substances; Z91.041 Radiographic dye allergy status
CPT/HCPCS: 88305; 43239; J2704; J2001

== ENCOUNTER → 2023-04-02 | Outpatient (CLI) | payer MEDICARE ==
[2023-04-02 15:37] LABS: Basophils # (A) 0.06 X 10*3/uL (0.00-0.10); Basophils % (A) 0.7 %; Eosinophils # (A) 0.19 X 10*3/uL (0.04-0.35); Eosinophils % (A) 2.2 %; HCT 36.2 % (37.2-46.3); HGB 11.1 d/dL (12.0-15.0); Lymphocytes # (A) 3.29 X 10*3/uL (0.90-5.00); Lymphocytes % (A) 38.5 %; MCHC 30.7 d/dL (32.0-37.0); MCV 94.5 FL (80.0-97.0); Mean Platelet Volume 10.4 FL (9.5-12.2); Monocytes # (A) 0.63 X 10*3/uL (0.20-1.00); Monocytes % (A) 7.4 %; NRBC Per 100 WBC 0 X 10*3/uL (0.00-0.01); Neutrophils # (A) 4.36 X 10*3/uL (1.80-7.70); Platelet Count 306 X 10*3/uL (140-440); RBC 3.83 X 10*6/uL (4.10-5.20); RDW 17.3 % (11.5-14.5); WBC 8.55 X 10*3/uL (4.50-10.00)
[2023-04-02 16:02] LABS: ALT 5 U/L (8-44); AST 14 U/L (13-35); Albumin 4.1 d/dL (3.8-4.9); Albumin/Globulin Ratio 1.86 Ratio (1.60-3.17); Alkaline Phosphatase 102 U/L (41-126); BUN/Creat Ratio 20.58 Ratio (12.00-20.00); Blood Urea Nitrogen 24.7 mg/dL (9.0-27.0); Calcium 9.7 mg/dL (8.7-10.3); Carbon Dioxide 23.9 mmol/L (21.6-31.8); Chloride 111 mmol/L (96-109); Globulin 2.2 d/dL (1.6-3.3); Glucose 101 mg/dL (70-110); Potassium 4.8 mmol/L (3.5-5.5); Sodium 146 mmol/L (135-145); Total Bilirubin <0.2 mg/dL (0.3-1.2); Total Protein 6.3 d/dL (6.2-8.2)
== END | disposition home or self-care (01) ==
LOC: LABWHC1 09:35
PROVIDERS: ATTEND Psychiatry & Neurology Neurology
DX: G50.0 Trigeminal neuralgia (principal); R51.9 Headache, unspecified
CPT/HCPCS: 36415; 80053; 85025

== ENCOUNTER → 2023-04-11 | Outpatient (CLI) | payer MEDICARE ==
--- NOTE | 2023-04-11 10:45 | CTL ---
EXAMINATION TYPE: CT Low Dose Lung DATE OF EXAM ORDERED: 04/11/2023 HISTORY: 68-year-old female [id number], personal history of nicotine dependence, current smoker with 30 p ack-year history. Lung cancer screening CT DLP: [address] CTDI: 0.9 mGy Automated exposure control for dose reduction was used. SCREENING VISIT: Less screening performed in 2018 COMPARISON: 08/16/[address] chest 04/10/2022 TECHNIQUE: Low dose computed tomography scan was performed through the chest with coronal and sagitta l reconstructions. CT DIAGNOSTIC QUALITY: Satisfactory FINDINGS: Heart is normal size with similar trace pericardial fluid. Three-vessel coronary artery calcification s are present and are a marker for coronary artery disease. Aorta normal caliber with mild arch calcifications and conventional arch vessel branching anatomy. Mi ld aneurysm lower descending thoracic aorta 3.2 cm versus 2.8 cm, previously. No thoracic lymphadenopathy by CT size criteria. Mild biapical pleural-parenchymal scarring. Mild centrilobular emphysema. Strandy atelectasis or scar ring in the lower lungs. * A vague 5 mm right middle lobe pulmonary nodule, axial image 148 not well seen previously. * 4 mm lateral right lower lobe pulmonary nodule, axial image 159 not well seen previously. * Calcified granuloma superior segment left lower lobe. No consolidation or pleural effusion. Visualized upper abdomen shows no gross abnormality. Bones: No osseous destructive process. IMPRESSION: 1. LungRADS 3, benign. A couple pulmonary nodules on the right measuring 4 mm and 5 mm not well seen previously. 2. COPD with mild emphysema. Recommend smoking cessation. 3. CAD with extensive three-vessel coronary artery calcifications. 4. Mildly aneurysmal lower descending thoracic aorta at 3.2 cm. This measured 2.8 cm back in [address]. CT LUNG RAD AND CT CHEST RECOMMENDATION: Lung-Rad 3 Probably Benign: 6 month follow-up LDCT. S Modifier (other clinically significant findings): Impression #4 above.
== END | disposition home or self-care (01) ==
LOC: RADCTMAIN 08:42
PROVIDERS: ATTEND Family Medicine
DX: Z12.2 Encounter for screening for malignant neoplasm of respiratory organs (principal); F17.210 Nicotine dependence, cigarettes, uncomplicated; J43.2 Centrilobular emphysema; I25.10 Atherosclerotic heart disease of native coronary artery without angina pectoris; I71.23 Aneurysm of the descending thoracic aorta, without rupture
CPT/HCPCS: 71271

== ENCOUNTER → 2023-04-22 | Outpatient (CLI) | payer MEDICARE ==
--- NOTE | 2023-04-22 14:59 | US ---
EXAMINATION TYPE: US kidneys/renal and bladder DATE OF EXAM: 04/22/2023 COMPARISON: NONE CLINICAL INDICATION: Female, 68 years old with history of R93.5 ABN COMPUTED TOMOGRAPHY OF ABD AND PE LVIS; Pain EXAM MEASUREMENTS: Right Kidney: 7.9 x 3.1 x 3.5 cm Left Kidney: 8.2 x 4.5 x 3.9 cm Right Kidney: No hydronephrosis or masses seen Left Kidney: No hydronephrosis or masses seen Bladder: Not fully distended. Bilateral Jets seen: no There is no evidence for hydronephrosis at this point in time. No nephrolithiasis is seen. No brandi s are identified. The urinary bladder is anechoic. Bilateral ureteral jets are seen. IMPRESSION: No discrete abnormality seen.
--- NOTE | 2023-04-22 17:25 | BD ---
EXAMINATION TYPE: Axial Bone Density DATE OF EXAM: 04/22/2023 CLINICAL HISTORY: 68 years old Female. ICD-10 CODE: 78.0 MENOPUASAL STATE, Z13.820 SCREEN FOR OSTEOP OROSIS Height: 61.2 in Weight: 84 lbs FRAX RISK QUESTIONS: History of Fracture in Adulthood: jaw age 37; lt patella age 23 Secondary Osteoporosis: Rheumatoid Arthritis: yes Current Tobacco Use: yes RISK FACTORS HISTORY OF: Active: yes Postmenopausal woman: total hysterectomy age 45 Take estrogen and/or progesterone medications: yes How lon years MEDICATIONS: Additional Medications: blood pressure meds, cholesterol meds, baby aspirin, headache pills, stomach meds, heart meds EXAM MEASUREMENTS: Bone mineral densitometry was performed using the [employer] System. Bone mineral density as measured about the Lumbar spine is: ----- L1-L4(G/cm2): 0.824 T Score Values are as follows: ----- L1: -3.9 ----- L2: -3.8 ----- L3: -2.8 ----- L4: -1.9 ----- L1-L4: -3.0 Z Score Values are as follows: ----- L1: -1.4 ----- L2: -1.3 ----- L3: -0.3 ----- L4: 0.6 ----- L1-L4: -0.4 Bone mineral density baseline Bone mineral density about the R hip (g/cm2): 0.586 Bone mineral density about the L hip (g/cm2): 0.560 T Score values are as follows: -----R Neck: -2.8 -----L Neck: -3.0 -----R Total: -3.3 -----L Total: -3.6 Z Score values are as follows: -----R Neck: -0.6 -----L Neck: -0.8 -----R Total: -1.4 -----L Total: -1.6 Bone mineral density baseline FRAX%s: The graph provided illustrates a 32.0% chance for a major osteoporotic fx and a 17.2% chance for the hips probability for fx in 10 years time. IMPRESSION: Osteoporosis (T Score less than -2.5). There is increased fracture risk and therapy is usually indicated based on age. Re-Screen 1-2 years. NOTE: T-SCORE=SD OF THE YOUNG ADULT MEAN.
--- NOTE | 2023-04-23 07:31 | US ---
EXAMINATION TYPE: US arterial LE single level DATE OF EXAM: 04/22/2023 2:01 PM CLINICAL INDICATION: Female, 68 years old with history of R93.5 ABN COMPUTED TOMOGRAPHY OF ABD AND PE LVIS; pain cold History of: Smoker: Current Smoker Hypertension: Yes Diabetic: No Hyperlipidemia: Yes TIA/CVA: Yes Previous Vascular Surgery: Yes CAD: No [place]: Yes Vascular Ulcers: No Claudication: No Gangrene: No Doppler Waveforms: Right: Multiphasic Left: Multiphasic Ankle-Brachial Indices: Right: 1.12 Left: 1.10 Toe Brachial Indices: Right: 0.93 Left: 0.92 IMPRESSION: Normal ankle-brachial indices.
== END | disposition home or self-care (01) ==
LOC: RADUSWWP 13:07
PROVIDERS: ATTEND Family Medicine
DX: Z13.820 Encounter for screening for osteoporosis (principal); M81.0 Age-related osteoporosis without current pathological fracture; M85.89 Other specified disorders of bone density and structure, multiple sites; I21.9 Acute myocardial infarction, unspecified; E78.5 Hyperlipidemia, unspecified; I10 Essential (primary) hypertension; M06.9 Rheumatoid arthritis, unspecified; R93.5 Abnormal findings on diagnostic imaging of other abdominal regions, including retroperitoneum; F17.210 Nicotine dependence, cigarettes, uncomplicated; Z78.0 Asymptomatic menopausal state; Z86.73 Personal history of transient ischemic attack (TIA), and cerebral infarction without residual deficits; Z90.710 Acquired absence of both cervix and uterus
CPT/HCPCS: 76770; 77080; 93922

== ENCOUNTER → 2023-09-11 | Outpatient (CLI) | payer MEDICARE ==
--- NOTE | 2023-09-11 10:07 | XR ---
EXAMINATION TYPE: XR cervical spine comp DATE OF EXAM: 09/11/2023 COMPARISON: NONE HISTORY: Pain TECHNIQUE: Four views are submitted. FINDINGS: The odontoid is intact. There are no compression deformities. The prevertebral soft tissue structur es are within normal limits. Calcifications in the soft tissues bilaterally. Grade 1 anterolisthesis C3-C4. Severe degenerative disc disease C4-5 and C5-C6. Multilevel facet arthropathy. Foraminal encr oachment C5-C6 bilaterally IMPRESSION: 1. There is straightening the cervical spine with a grade 1 anterolisthesis C3-C4. Recommend MRI. 2. Severe degenerative disc disease C4-5 and C5-6.
--- NOTE | 2023-09-11 10:10 | XR ---
EXAMINATION TYPE: XR thoracic spine 2V DATE OF EXAM: 09/11/2023 COMPARISON: NONE HISTORY: Pain TECHNIQUE: 3 views submitted FINDINGS: Alignment is anatomic. There is no compression deformities. Diffuse osteopenia with multilevel hyper trophic and degenerative change. There is a scoliosis. Atherosclerotic change aorta. IMPRESSION: 1. Scoliosis with diffuse osteopenia and multilevel hvqv-tn-xqfonagn degenerative disc disease.
--- NOTE | 2023-09-11 10:42 | XR ---
EXAM TYPE: LUMBAR SPINE X RAY SERIES COMPARISON: NONE HISTORY: Pain TECHNIQUE: 4 views are submitted. FINDINGS: Alignment is anatomic. The pedicles are intact. The transverse processes are intact. There is diff use osteopenia with multilevel degenerative disc disease most marked at L3-4 and L5-S1. Severe facet arthropathy levels L3-S1. Slight scoliotic curvature of the spine. Vascular calcifications noted. 3 c m abdominal aortic aneurysm not excluded. Minimal grade 1 anterolisthesis L3-L4 and L4-L5. IMPRESSION: 1. Scoliosis with diffuse osteopenia and multilevel degenerative disc disease most marked at L3-4 and L5-S1. 2. Multilevel severe facet arthropathy. 3. Suspect a borderline to mild aortic aneurysm.
== END | disposition home or self-care (01) ==
LOC: RADXRMAIN 09:25
PROVIDERS: ATTEND Family Medicine
DX: M51.9 Unspecified thoracic, thoracolumbar and lumbosacral intervertebral disc disorder (principal); M43.12 Spondylolisthesis, cervical region; M51.34 Other intervertebral disc degeneration, thoracic region; M41.84 Other forms of scoliosis, thoracic region; M51.36 Other intervertebral disc degeneration, lumbar region; M47.816 Spondylosis without myelopathy or radiculopathy, lumbar region; M50.321 Other cervical disc degeneration at C4-C5 level; M41.86 Other forms of scoliosis, lumbar region; G89.29 Other chronic pain; M85.88 Other specified disorders of bone density and structure, other site
CPT/HCPCS: 72050; 72070; 72110

== ENCOUNTER → 2023-09-17 | Outpatient (CLI) | payer MEDICARE ==
[2023-09-17 13:17] VITALS: BP 127/77; PULSE 80; RESP 16
--- NOTE | 2023-09-17 14:11 | P.PAINPG ---
Objective - Vital Signs Vital signs: Intake & Output 09/16/23 09/17/23 09/17/23 18:59 06:59 18:59 Weight 38.555 kg PQRS Measure Charge Sheet Comment: HISTORY OF PRESENT ILLNESS: A 68 yr old female w daughter at side as a referral from Dr Leal presents today w severe and chronic BARRETT and neck pain secondary to Occipital Neuralgia/ Cervicogenic BARRETT for evaluation. Pt states pain level is provoked at 9/10 in intensity, constant, localized in the base of the head, predominantly axial, sharp in character w occasional shooting pain towards the temples BL. Pain is provoked by hyperextension. Pain is alleviated by medications (Trazodone, Excedrin), topical, massage, repositioning and rest. PMH: OA, CAD, Angina, COPD, Fibromyalgia, Hyperlipidemia, HTN, OP, MDD/ Anxiety PSH: EGD (2022), Temporal Artery Biopsy (2022), L Breast Biopsy, Heart Catheterization x2 (2019, 2022) w Stent (2019), Hysterectomy, L Patella Surgery, R CTR, LESIs SH: Lives w daughter. 50 pack yr daily tobacco use, Occasional ETOH use, No illicit drug use FH: Mo- TB/ SLE/ CA All: See list Meds: See list REVIEW OF ORGAN SYSTEMS: CONSTITUTIONAL: No fevers or chills. No recent weight loss. NEUROLOGICAL: + numbness and tingling along the distal extremities. No seizure disorders or headaches. MUSCULOSKELETAL: + pain PSYCHIATRIC: Denies current depression or suicidal thoughts. Physical Examinations : Constitutional : Cooperative , not in acute distress . Neurologic : Cranial nerve II to XII intact. No focal neurological deficits. Psychiatric : alert & oriented x 3. Matching mood & appropriate affect. Judgment & insight intact. Musculoskeletal : Cervical Spine +BL BLAYNE TTP Motor strength in the deltoid and biceps: Normal right side. Normal Left side Motor strength biceps and the wrist extensors: Normal right side . Normal left side Motor strength in the triceps muscle: Normal right side. Normal left side Deep tendon reflexes: Normal at the biceps. Normal at Brachioradialis. Normal at triceps Vertebral body tenderness to deep palpation over Cervical facet loading test: positive bilaterally Spurling test: positive bilaterally Neck distraction test: positive bilaterally Cayden sign: positive bilaterally Lumbar spine Motor strength lower extremities ,thigh and legs 5/5 Right side , 5/5 Left side Deep tendon reflexes : Normal Knee Jerk. Normal Ankle Jerk Vertebral body tenderness over Bolanos Test positive Lumbar facet Loading Test: positive Right / positive Left Range of motion of the lumbar spine Flexion 30 degrees, extension 10 degrees Straight Leg Raise test: Left/ Right positive at degrees Verna test: positive right / positive left. Severe tenderness over the Sacroiliac joint on the Right / Left sides Gaenslen test: positive bilaterally Seated flexion test: positive bilaterally. Sacral spine : Severe tenderness over the Sacroiliac joint: right side / left side Range of motion: Flexion of the lumbar spine <60 degrees Range of motion: Extension of the lumbar spine <20 degrees Gaenslen's Test positive Verna test: positive right side / left side Thigh Thrust Test Sacral Thrust Test Imaging: CT w/ without contrast of the brain rom Sep 2022 reviewed Assessment/ Plan : Occipital Neuralgia/ Cervicogenic BARRETT Recommendation of BL BLAYNE injections. May need a series of injections for optimal pain relief. Risks, benefits of procedure discussed and patient verbalized understanding. Admits to anti- coagulant use or medical history of diabetes. Protocol for discontinuation/ continuation of medications aiyana procedure discussed. TENS unit ordered. Cervical x ray ordered M50.30 PT of the cervical spine x 6 wks would be beneficial TENS script provided. All questions answered. I have spent greater than 30 minutes on patient care today. Dr Starr was available by phone for the evaluation of this patient. The time was used to review the medical records including relevant urine studies and Prescription history (MAPs), review of the available imaging, evaluation and examination of the patient, coordination of care with the medical staff and if applicable referring physicians, as well as creation of the medical record PQRS Narrative: Smoking Status Current every day smoker Home Medications: Ambulatory Orders traZODone HCL 150 mg PO HS 30 Days tablet 04/17/22 [id number] [Excedrin] 3 tab PO BID 10/17/22 Atorvastatin Calcium 20 mg PO HS 10/17/22 Melatonin 10 mg PO HS 10/17/22 Omeprazole 40 mg PO DAILY 10/17/22 amLODIPine [Norvasc] 5 mg PO DAILY #30 tab 10/26/22 carBAMazepine [TEGretol] 100 mg PO BID #30 tab 10/26/22 Aspirin EC [Ecotrin Low Dose] 81 mg PO DAILY 12/23/22 Famotidine [Pepcid] 20 mg PO HS 12/23/22 Sertraline [Zoloft] 150 mg PO DAILY 12/23/22 hydrOXYzine HCL 25 mg PO HS 12/23/22 Dicyclomine [Bentyl] 20 mg PO TID PRN #10 tablet 02/07/23 Ondansetron Odt [Zofran Odt] 4 mg PO Q8HR PRN #14 tab 02/07/23 Controlled Substance Measures - Controlled Substance Measures Is patient prescribed a controlled substance at discharge?: No
--- NOTE | 2023-09-17 14:32 | XR ---
EXAMINATION TYPE: XR cervical spine limited DATE OF EXAM: 09/17/2023 COMPARISON: NONE HISTORY: Pain TECHNIQUE: Four views are submitted. FINDINGS: The odontoid is intact. There are no compression deformities. The prevertebral soft tissue structur es are within normal limits. Loss of cervical lordosis with diffuse osteopenia. Grade 1 anterolisthe sis C3-C4 and there is moderate to severe degenerative disc disease levels C4-5, C5-6 and C6-C7. Vasc ular calcifications in the soft tissue of the neck. There is apical pleural thickening and calcificat ion. IMPRESSION: 1. Multilevel moderate to severe degenerative disc disease as discussed above. 2. Grade 1 anterolisthesis C3-C4. Consider follow-up MRI..
== END ==
LOC: PNWHC3 12:21
PROVIDERS: ATTEND Specialist
DX: M50.321 Other cervical disc degeneration at C4-C5 level (principal); G44.86 Cervicogenic headache; M43.12 Spondylolisthesis, cervical region; M54.81 Occipital neuralgia; M19.90 Unspecified osteoarthritis, unspecified site; I25.10 Atherosclerotic heart disease of native coronary artery without angina pectoris; J44.9 Chronic obstructive pulmonary disease, unspecified; E78.5 Hyperlipidemia, unspecified; I10 Essential (primary) hypertension; F41.9 Anxiety disorder, unspecified; F32.A Depression, unspecified; F17.200 Nicotine dependence, unspecified, uncomplicated; Z79.82 Long term (current) use of aspirin; Z88.6 Allergy status to analgesic agent; Z91.041 Radiographic dye allergy status; Z88.8 Allergy status to other drugs, medicaments and biological substances
CPT/HCPCS: 72040; 99211

== ENCOUNTER 2023-10-02 06:50 | Day surgery (SDC) | payer MEDICARE ==
[2023-09-30 11:25] VITALS: BMI 14.6
[~2023-10-02 06:50] MED LIST changes: -LIDOCAINE 1% (10MG/ML) FOR IV START INTRADERMA PRN
[2023-10-02 07:49] VITALS: RESP 16; TEMP 98.4
[2023-10-02] MEDS ORDERED: methylPREDNISolone ACETATE 40 MG/ML 1 ML VIAL ONE (07:59)
[2023-10-02] MEDS ORDERED: ROPIVACAINE 5MG/ML 20ML VIAL ONE (07:59)
--- NOTE | 2023-10-02 08:05 | P.PCN ---
Date of Procedure: 10/02/23 Description of Procedure: Pre-operative diagnosis: occipital neuralgia Post Operative Diagnosis: occipital neuralgia Procedure: Bilateral greater occipital nerve block under ultrasound - Ultrasound used to place needle and avoid vascular structures. Anesthesia: None PROCEDURE INDICATION: The patient with neck pain and headache secondary to occipital neuralgia unresponsive to conservative treatments. PROCEDURE DESCRIPTION / TECHNIQUE: The patient was seen and identified in the preoperative area. Risks, benefits, complications, and alternatives were discussed with the patient, the patient agreed to proceed with the procedure and signed the consent. Vital signs remained stable throughout the procedure. Patient was taken to the OR and time out was completed. The patient was placed in the sitting position on the procedure table. The cervical area and occiptial area were prepped with alcohol swab. Critical pause was taken. Vital signs were closely monitored during the procedure. Conscious sedation was used during the procedure to decrease patients anxiety. Right side: Ultrasound was used and the occipital artery was visualized exiting the skull about 2-3 cm lateral and 2cm inferior to the occipital protuberance On the right side. Then after negative aspiration, a 25g needed was introduced under ultrasound, negative aspiration confirmed and then 3 ml of the block solution containing 2 ml of PF Ropivaciane 0.5% and Depo-Medrol 20 mg was injected after negative aspiration. Needle was withdrawn intact. Left side: Ultrasound was used and the occipital artery was visualized exiting the skull about 2-3 cm lateral and 2cm inferior to the occipital protuberance On the left side. Then after negative aspiration, a 25g needed was introduced under ultrasound, negative aspiration confirmed and then 3 ml of the block solution containing 2 ml of PF Ropivaciane 0.5% and Depo-Medrol 20 mg was injected after negative aspiration. Needle was withdrawn intact. Patient tolerated procedure well. No acute complications. Patient's blood pressures elevated as she did not take her blood pressure medications. I advised her to take her blood pressure medication as soon as she gets home. .
[2023-10-02 08:40] VITALS: BP 177/88; PULSE 75
== END 2023-10-02 08:44 | disposition home or self-care (01) ==
LOC: ORPAIN 06:50
PROVIDERS: ATTEND Hospitalist
DX: M54.81 Occipital neuralgia (principal); Z88.8 Allergy status to other drugs, medicaments and biological substances; Z88.6 Allergy status to analgesic agent; Z79.82 Long term (current) use of aspirin
CPT/HCPCS: 64405; J1030; J2795

== ENCOUNTER 2024-02-03 15:49 | Inpatient (IN) | payer MEDICARE ==
[2024-02-03] MEDS: ONDANSETRON 4 MG/2 ML VIAL IVP STA (16:33)
[2024-02-03] MEDS: MORPHINE SULFATE 2 MG/ML SYRINGE IVP STA (16:34)
[2024-02-03] MEDS: NITROGLYCERIN OINT 1 INCH/GM PACKET TOPICAL STA (16:37)
[2024-02-03] MEDS: ASPIRIN 81 MG PO STA (16:37)
[2024-02-03] MEDS: SODIUM CHLORIDE 0.9% 500 ML 500 ML IV ONE (16:37)
[2024-02-03 16:43] LABS: Basophils # (A) 0.1 k/uL (0-0.2); Basophils % (A) 1 %; Eosinophils # (A) 0.1 k/uL (0-0.7); Eosinophils % (A) 2 %; HGB 12.5 gm/dL (11.4-16.0); Lymphocytes # (A) 3.4 k/uL (1.0-4.8); Lymphocytes % (A) 41 %; MCH 32.9 pg (25.0-35.0); MCHC 32.9 g/dL (31.0-37.0); MCV 100.1 fL (80.0-100.0); Mean Platelet Volume 8.4; Monocytes # (A) 0.4 k/uL (0-1.0); Monocytes % (A) 5 %; Neutrophils # (A) 4.3 k/uL (1.3-7.7); Neutrophils % (A) 51 %; Platelet Count 233 k/uL (150-450); RDW 13.5 % (11.5-15.5); WBC 8.4 k/uL (3.8-10.6)
--- NOTE | 2024-02-03 16:47 | ED ---
General Adult HPI - General Chief complaint: Chest Pain Stated complaint: chest pain Time Seen by Provider: 02/03/24 16:00 Source: patient, RN notes reviewed, old records reviewed Mode of arrival: wheelchair Limitations: no limitations - History of Present Illness Initial comments: This is a 68-year-old female who presents to the emergency department stating that she started having chest pain over the last 3 days and has been intermittent. Patient states the pain does radiate to her left shoulder. Patient states she is made her short of breath nauseated and has been vomiting. Patient denies any diaphoretic episode. Patient states it comes and goes and it can last 20 to 30 minutes at a time but sometimes it is only a few minutes. Patient states currently she continues to have some chest pain. Patient states she also is feeling short of breath and has some nausea. Patient states she is a smoker. Patient states she has a stent and she was told another one of her coronary arteries is partially blocked. Patient denies any recent fever chills or cough. Patient denies any abdominal pain. Patient denies any back pain. - Related Data Home Medications Medication Instructions Recorded Confirmed [id number] 2 tab PO TID@0500,1200,2000 10/17/22 02/03/24 [Excedrin] Atorvastatin Calcium 20 mg PO HS 10/17/22 02/03/24 Omeprazole 40 mg PO DAILY 10/17/22 02/03/24 Famotidine [Pepcid] 20 mg PO HS 12/23/22 02/03/24 Sertraline [Zoloft] 150 mg PO DAILY 12/23/22 02/03/24 Albuterol Inhaler [Ventolin Hfa 1 puff INHALATION RT-Q4H PRN 09/30/23 02/03/24 Inhaler] Dicyclomine [Bentyl] 20 mg PO ACHS 02/03/24 02/03/24 Gabapentin [Neurontin] 100 mg PO BID 02/03/24 02/03/24 Isosorbide Mononitrate ER [Imdur] 30 mg PO DAILY 02/03/24 02/03/24 Montelukast [Singulair] 10 mg PO DAILY 02/03/24 02/03/24 OXcarbazepine [Trileptal] 150 mg PO HS 02/03/24 02/03/24 OXcarbazepine [Trileptal] 300 mg PO DAILY 02/03/24 02/03/24 Pwd-Eadc-Lrznz Acid 1 cap PO DAILY 02/03/24 02/03/24 [-U Capsule (formulary)] lisinopriL [Zestril] 5 mg PO DAILY 02/03/24 02/03/24 Previous Rx's Medication Instructions Recorded traZODone HCL 150 mg PO HS 30 Days tablet 04/17/22 Allergies Allergy/AdvReac Type Severity Reaction Status Date / Time ibuprofen AdvReac NIGHTMARES Verified 02/03/24 17:51 Iodinated Contrast Media AdvReac Nausea & Verified 02/03/24 17:51 [Iodinated Contrast Media - Vomiting IV Dye] povidone-iodine AdvReac Nausea & Verified 02/03/24 17:51 [From Betadine] Vomiting soap [From Betadine] AdvReac Nausea & Verified 02/03/24 17:51 Vomiting Review of Systems ROS Statement: Those systems with pertinent positive or pertinent negative responses have been documented in the HPI. ROS Other: All systems not noted in ROS Statement are negative. Past Medical History Past Medical History: Coronary Artery Disease (CAD), Chest Pain / Angina, COPD, Fibromyalgia, Hyperlipidemia, Hypertension, Osteoarthritis (OA) Additional Past Medical History / Comment(s): Chronic back pain, DDD, bulging discs, scoliosis, osteoporosis., PAST HX JAW FX RT-CAUSES HEADACHES-TAKES TEGRETOL, History of Any Multi-Drug Resistant Organisms: None Reported Past Surgical History: Breast Surgery, Heart Catheterization With Stent, Hysterectomy, Orthopedic Surgery Additional Past Surgical History / Comment(s): Back injections, L patellar surgery, R carpal tunnel release, L breast benign biopsy, sinus surgery, EGD Past Anesthesia/Blood Transfusion Reactions: No Reported Reaction Date of Last Stent Placement:: 05/10/20 Past Psychological History: Anxiety, Depression Smoking Status: Current every day smoker - Past Family History Mother Family Medical History: Cancer Additional Family Medical History / Comment(s): Mother had lupus and TB Father History Unknown: Yes General Exam - General Exam Comments Initial Comments: GENERAL: Patient is well-developed and well-nourished. Patient is nontoxic and well- hydrated and is in mild distress. ENT: Neck is soft and supple. No significant lymphadenopathy is noted. Oropharynx is clear. Moist mucous membranes. Neck has full range of motion without eliciting any pain. EYES: The sclera were anicteric and conjunctiva were pink and moist. Extraocular movements were intact and pupils were equal round and reactive to light. Eyelid s were unremarkable. PULMONARY: Unlabored respirations. Good breath sounds bilaterally. No audible rales rhonchi or wheezing was noted. CARDIOVASCULAR: There is a regular rate and rhythm without any murmurs gallops or rubs. ABDOMEN: Soft and nontender with normal bowel sounds. SKIN: Skin is clear with no lesions or rashes and otherwise unremarkable. NEUROLOGIC: Patient is alert and oriented x3. Cranial nerves II through XII are grossly intact. Motor and sensory are also intact. Normal speech, volume and content. Symmetrical smile. MUSCULOSKELETAL: Normal extremities with adequate strength and full range of motion. No lower extremity swelling or edema. No calf tenderness. LYMPHATICS: No significant lymphadenopathy is noted PSYCHIATRIC: Normal psychiatric evaluation. Limitations: no limitations Course Vital Signs 02/03/24 02/03/24 02/03/24 15:51 16:22 18:01 Temperature 97.8 F Pulse Rate 88 71 71 Pulse Rate [ 71 Travel Service Consultant ] Respiratory 18 18 18 Rate Blood Pressure 175/95 166/96 149/91 O2 Sat by Pulse 96 94 L 95 Oximetry Medical Decision Making - Medical Decision Making EKG is interpreted by myself. EKG shows a sinus rhythm at 75 bpm parables 132 QRS is 82 QT interval is 347 QTc is 377. Patient's EKG shows no ST segment elevation or depression. Was pt. sent in by a medical professional or institution (, PA, BOOM TRUCK DRIVER, urgent care, hospital, or fci...) When possible be specific @ -No Did you speak to anyone other than the patient for history (EMS, parent, family, police, friend...)? What history was obtained from this source @ -No Did you review nursing and triage notes (agree or disagree)? Why? @ -I reviewed and agree with nursing and triage notes Were old charts reviewed (outside hosp., previous admission, EMS record, old EKG, old radiological studies, urgent care reports/EKG's, fci records)? Report findings @ -I compared today's EKG with the previous EKG and there was no acute abnormalities noted in comparison. I also compared today's lab work with previo us lab work and troponins CBC and comprehensive panel were all unchanged. Differential Diagnosis (chest pain, altered mental status, abdominal pain women, abdominal pain men, vaginal bleeding, weakness, fever, dyspnea, syncope, headache, dizziness, GI bleed, back pain, seizure, CVA, palpatations, mental health, musculoskeletal)? @ -Differential Chest Pain: Stable Angina, Unstable Angina, STEMI, NSTEMI Aortic Dissection, Pneumothorax, Musculoskeletal, Esophageal Spasm GERD, Cholecystitis, Pancreatitis, Zoster, this is not meant to be an all-inclusive list. EKG interpreted by me (3pts min.). @ -As above X-rays interpreted by me (1pt min.). @ -Chest x-ray shows no acute abnormality CT interpreted by me (1pt min.). @ -None done U/S interpreted by me (1pt. min.). @ -None done What testing was considered but not performed or refused? (CT, X-rays, U/S, labs)? Why? @ -None What meds were considered but not given or refused? Why? @ -None Did you discuss the with other professionals (professionals i.e. , PA, BOOM TRUCK DRIVER, lab, RT, psych nurse, social welfare clerk, bird keeper, teacher, bank operations officer, ni monk)? Give summary @ -I spoke with [facility] and they agreed to admit the patient admit the patient wrote admitting orders Was smoking cessation discussed for >3mins.? @ -No Was critical care preformed (if so, how long)? @ -No Were there social determinants of health that impacted care today? How? (Homelessness, low income, unemployed, alcoholism, drug addiction, transportation, low edu. Level, literacy, decrease access to med. care, long term, rehab)? @ -No Was there de-escalation of care discussed even if they declined (Discuss DNR or withdrawal of care, Hospice)? DNR status @ -No What co-morbidities impacted this encounter? (DM, HTN, Smoking, COPD, CAD, Cancer, CVA, ARF, Chemo, Hep., AIDS, mental health diagnosis, sleep apnea, morbid obesity)? @ -None Was patient admitted / discharged? Hospital course, mention meds given and route, prescriptions, significant lab abnormalities, going to OR and other pertinent info. @ -Patient's lab work came back within normal range. Patient's chest x-ray showed no acute normality. [facility] I wrote admitting orders I consulted cardiology Undiagnosed new problem with uncertain prognosis? @ -No Drug Therapy requiring intensive monitoring for toxicity (Heparin, Nitro, Insulin, Cardizem)? @ -No Were any procedures done? @ -No Diagnosis/symptom? @ -Chest pain Acute, or Chronic, or Acute on Chronic? @ -Acute Uncomplicated (without systemic symptoms) or Complicated (systemic symptoms)? @ -Complicated Side effects of treatment? @ -No Exacerbation, Progression, or Severe Exacerbation? @ -No Poses a threat to life or bodily function? How? (Chest pain, USA, AK, pneumonia, PE, COPD, DKA, ARF, appy, cholecystitis, CVA, Diverticulitis, Homicidal, Suicidal, threat to staff... and all critical care pts) @ -Yes this could lead to an AK and endorgan dysfunction - Lab Data Result diagrams: 02/03/24 16:31 02/03/24 16:31 Lab Results 02/03/24 02/03/24 02/03/24 Range/Units 16:31 16:31 16:31 WBC 8.4 (3.8-10.6) k/uL RBC 3.80 (3.80-5.40) m/uL Hgb 12.5 (11.4-16.0) gm/dL Hct 38.0 (34.0-46.0) % MCV 100.1 H (80.0-100.0) fL MCH 32.9 (25.0-35.0) pg MCHC 32.9 (31.0-37.0) g/dL RDW 13.5 (11.5-15.5) % Plt Count 233 (150-450) k/uL MPV 8.4 Neutrophils % 51 % Lymphocytes % 41 % Monocytes % 5 % Eosinophils % 2 % Basophils % 1 % Neutrophils # 4.3 (1.3-7.7) k/uL Lymphocytes # 3.4 (1.0-4.8) k/uL Monocytes # 0.4 (0-1.0) k/uL Eosinophils # 0.1 (0-0.7) k/uL Basophils # 0.1 (0-0.2) k/uL PT 10.5 (10.0-12.5) sec INR 1.0 (<1.2) APTT 25.2 (22.0-30.0) sec Sodium 141 (137-145) mmol/L Potassium 4.1 (3.5-5.1) mmol/L Chloride 114 H (98-107) mmol/L Carbon Dioxide 20 L (22-30) mmol/L Anion Gap 7 mmol/L BUN 27 H (7-17) mg/dL Creatinine 1.05 H (0.52-1.04) mg/dL Est GFR (CKD-EPI)AfAm 63 (>60 ml/min/1.73 sqM) Est GFR (CKD-EPI)NonAf 55 (>60 ml/min/1.73 sqM) Glucose 82 (74-99) mg/dL Calcium 9.2 (8.4-10.2) mg/dL Magnesium 1.9 (1.6-2.3) mg/dL Total Bilirubin 0.3 (0.2-1.3) mg/dL AST 23 (14-36) U/L ALT 8 (4-34) U/L Alkaline Phosphatase 63 (38-126) U/L Troponin I (0.000-0.034) ng/mL Total Protein 6.5 (6.3-8.2) g/dL Albumin 3.9 (3.5-5.0) g/dL 02/03/24 Range/Units 16:31 WBC (3.8-10.6) k/uL RBC (3.80-5.40) m/uL Hgb (11.4-16.0) gm/dL Hct (34.0-46.0) % MCV (80.0-100.0) fL MCH (25.0-35.0) pg MCHC (31.0-37.0) g/dL RDW (11.5-15.5) % Plt Count (150-450) k/uL MPV Neutrophils % % Lymphocytes % % Monocytes % % Eosinophils % % Basophils % % Neutrophils # (1.3-7.7) k/uL Lymphocytes # (1.0-4.8) k/uL Monocytes # (0-1.0) k/uL Eosinophils # (0-0.7) k/uL Basophils # (0-0.2) k/uL PT (10.0-12.5) sec INR (<1.2) APTT (22.0-30.0) sec Sodium (137-145) mmol/L Potassium (3.5-5.1) mmol/L Chloride (98-107) mmol/L Carbon Dioxide (22-30) mmol/L Anion Gap mmol/L BUN (7-17) mg/dL Creatinine (0.52-1.04) mg/dL Est GFR (CKD-EPI)AfAm (>60 ml/min/1.73 sqM) Est GFR (CKD-EPI)NonAf (>60 ml/min/1.73 sqM) Glucose (74-99) mg/dL Calcium (8.4-10.2) mg/dL Magnesium (1.6-2.3) mg/dL Total Bilirubin (0.2-1.3) mg/dL AST (14-36) U/L ALT (4-34) U/L Alkaline Phosphatase (38-126) U/L Troponin I <0.012 (0.000-0.034) ng/mL Total Protein (6.3-8.2) g/dL Albumin (3.5-5.0) g/dL Disposition Clinical Impression: Chest pain Disposition: ADMITTED IP TO THIS HOSP Referrals: Marium Mazariegos MD [Primary Care Provider] - 1-2 days Time of Disposition: 18:15
[2024-02-03 16:57] LABS: ALT 8 U/L (4-34); AST 23 U/L (14-36); African American GFR (CKD) 63 (>60 ml/min/1.73 sqM); Albumin 3.9 g/dL (3.5-5.0); Alkaline Phosphatase 63 U/L (38-126); Anion Gap 7 mmol/L; Blood Urea Nitrogen 27 mg/dL (7-17); Calcium 9.2 mg/dL (8.4-10.2); Carbon Dioxide 20 mmol/L (22-30); Chloride 114 mmol/L (98-107); Glucose 82 mg/dL (74-99); Magnesium 1.9 mg/dL (1.6-2.3); Non-African American GFR(CKD) 55 (>60 ml/min/1.73 sqM); Potassium 4.1 mmol/L (3.5-5.1); Sodium 141 mmol/L (137-145); Total Bilirubin 0.3 mg/dL (0.2-1.3); Total Protein 6.5 g/dL (6.3-8.2)
[2024-02-03 17:06] LABS: Partial Thromboplastin Time 25.2 sec (22.0-30.0); Prothrombin Time 10.5 sec (10.0-12.5)
--- NOTE | 2024-02-03 17:35 | XR ---
EXAMINATION TYPE: XR chest 2V DATE OF EXAM: 02/03/2024 4:51 PM CLINICAL INDICATION:Female, 68 years old with history of Chest Pain; [facility] COMPARISON: Chest radiographs from 04/17/2022 TECHNIQUE: XR chest 2V Frontal and lateral views of the chest. FINDINGS: Lungs/Pleura: There is flattening of the diaphragm with increased lucency of the lungs. No evidence o f pneumothorax, pleural effusion or focal consolidation. Pulmonary vascularity: Unremarkable. Heart/mediastinum: Cardiomediastinal silhouette is unremarkable. Musculoskeletal: No acute osseous pathology. IMPRESSION: 1. No acute cardiopulmonary disease process. 2. COPD changes.
[2024-02-03] MEDS ORDERED: NITROGLYCERIN SL TABS 0.4 MG TAB SUBLINGUAL PRN (18:17)
[2024-02-03] MEDS: LIDOCAINE 4% PATCH TOPICAL SCH (21:20)
[2024-02-03] MEDS: HYDROcodone/APAP 5-325MG 1 EACH TAB PO PRN (21:22)
[2024-02-04] MEDS: NITROGLYCERIN OINT 1 INCH/GM PACKET TOPICAL SCH (00:04)
--- NOTE | 2024-02-04 08:25 | P.CRDCN ---
History of Present Illness History of present illness: HISTORY OF PRESENT ILLNESS: This is a 68-year-old female with a past medical history significant for coronary artery disease, known chronic total occlusion of the RCA, hypertension, hyperlipidemia, carotid stenosis, peripheral arterial disease, nicotine dependence. Patient follows in the office with Dr. Alex. We have been asked to see the patient in consultation for chest pain. Patient examined at the bedside. Patient states she has been having chest pain on and off for the past 3 days. She states the pain first developed in the middle of her chest and radiates into her neck and her left arm. She states after the chest pain occurs she develops nausea and dry heaves. She also reports having a headache. She states that the chest pain is not exertionally related. She states initially she thought she had a stomach bug as others in her house have been feeling unwell. She also reports feeling short of breath, dizzy and lightheaded, and occasionally seeing spots. She does report that the pain is worse with deep inspiration. DIAGNOSTICS: - EKG reveals sinus mechanism with no signs of acute ischemia. - Chest xray no acute cardiopulmonary process. COPD changes.. - Laboratory data: WBC 8.4. Hemoglobin 12.5. Platelet count 233. Sodium 141. Potassium 4.1. BUN 27. Creatinine 1.05. Troponin negative x 3 - Current home cardiac medications include lisinopril 5 mg daily, atorvastatin 20 mg at night, Imdur 30 mg daily. - Most recent echocardiogram obtained in February 2022 revealing ejection fraction 55%, mild AR, mild MR, mild TR -Patient underwent stress testing March 2022 revealing normal Lexiscan without inducible ischemia - Cardiac catheterization history: April 2020 revealing chronic total occlusion of the RCA, severe disease involving the proximal left circumflex, normal left anterior descending artery. Patient underwent stenting of the left circumflex. REVIEW OF SYSTEMS: At the time of my exam: CONSTITUTIONAL: Denies fever or chills. HEENT: Denies blurred vision, vision changes, or eye pain. Denies hemoptysis CARDIOVASCULAR: Denies chest pain. Denies orthopnea. Denies PND. Denies palpitations RESPIRATORY: Denies shortness of breath. GASTROINTESTINAL: Denies abdominal pain. Denies nausea or vomiting. HEMATOLOGIC: Denies bleeding disorders. GENITOURINARY: Denies any blood in urine. SKIN: Denies pruitis. Denies rash. PHYSICAL EXAM: VITAL SIGNS: Reviewed. GENERAL: Well-developed in no acute distress. HEENT: Head is normocephalic. Pupils are equal, round. Sclerae anicteric. Mucous membranes of the mouth are moist. Neck supple. No JVD or thyromegaly LUNGS: Respirations even and unlabored. Lungs essentially clear to auscultation bilaterally. HEART: Regular rate and rhythm. S1 and S2 heard. ABDOMEN: Soft. Nondistended. Nontender. EXTREMITIES: Normal range of motion. No clubbing or cyanosis. Peripheral pulses intact. No lower extremity edema NEUROLOGIC: Awake and alert. Oriented x 3. ASSESSMENT: Chest pain with typical and atypical features, troponin negative x 3 Shortness of breath Nausea with dry heaves Coronary artery disease with previous stenting of the left circumflex Known [employer] of RCA Hypertension Hyperlipidemia Carotid stenosis Peripheral arterial disease Nicotine dependence PLAN: An acute coronary event has been ruled out Obtain 2D echo to assess cardiac structure and function Check D-dimer Resume home cardiac medications Increase Imdur to 60 mg daily Add Ranexa 500 mg twice a day If D-dimer is unremarkable, will consider stress testing versus cardiac catheterization Further recommendations pending patient course Nurse practitioner note has been reviewed by physician. Signing provider agrees with the documented findings, assessment, and plan of care documented by ARCHEOLOGY FACULTY MEMBER as a scribe. Past Medical History Past Medical History: Coronary Artery Disease (CAD), Chest Pain / Angina, COPD, Fibromyalgia, Hyperlipidemia, Hypertension, Osteoarthritis (OA) Additional Past Medical History / Comment(s): Chronic back pain, DDD, bulging discs, scoliosis, osteoporosis., PAST HX JAW FX RT-CAUSES HEADACHES-TAKES TEGRETOL, History of Any Multi-Drug Resistant Organisms: None Reported Past Surgical History: Breast Surgery, Heart Catheterization With Stent, Hysterectomy, Orthopedic Surgery Additional Past Surgical History / Comment(s): Back injections, L patellar surgery, R carpal tunnel release, L breast benign biopsy, sinus surgery, EGD Past Anesthesia/Blood Transfusion Reactions: No Reported Reaction Date of Last Stent Placement:: 05/10/20 Past Psychological History: Anxiety, Depression Smoking Status: Current every day smoker - Past Family History Mother Family Medical History: Cancer Additional Family Medical History / Comment(s): Mother had lupus and TB Father History Unknown: Yes Medications and Allergies Home Medications Medication Instructions Recorded Confirmed Type traZODone HCL 150 mg PO HS 30 Days tablet 04/17/22 02/03/24 Rx Buztulo-Zbmk-Zozi [id number] 2 tab PO TID@0500,1200,2000 10/17/22 02/03/24 History [Excedrin] Atorvastatin Calcium 20 mg PO HS 10/17/22 02/03/24 History Omeprazole 40 mg PO DAILY 10/17/22 02/03/24 History Famotidine [Pepcid] 20 mg PO HS 12/23/22 02/03/24 History Sertraline [Zoloft] 150 mg PO DAILY 12/23/22 02/03/24 History Albuterol Inhaler [Ventolin Hfa 1 puff INHALATION RT-Q4H PRN 09/30/23 02/03/24 History Inhaler] Dicyclomine [Bentyl] 20 mg PO ACHS 02/03/24 02/03/24 History Gabapentin [Neurontin] 100 mg PO BID 02/03/24 02/03/24 History Isosorbide Mononitrate ER [Imdur] 30 mg PO DAILY 02/03/24 02/03/24 History Montelukast [Singulair] 10 mg PO DAILY 02/03/24 02/03/24 History OXcarbazepine [Trileptal] 150 mg PO HS 02/03/24 02/03/24 History OXcarbazepine [Trileptal] 300 mg PO DAILY 02/03/24 02/03/24 History Lic-Htuz-Wpomk Acid 1 cap PO DAILY 02/03/24 02/03/24 History [-U Capsule (formulary)] lisinopriL [Zestril] 5 mg PO DAILY 02/03/24 02/03/24 History Allergies Allergy/AdvReac Type Severity Reaction Status Date / Time ibuprofen AdvReac NIGHTMARES Verified 02/03/24 17:51 Iodinated Contrast Media AdvReac Nausea & Verified 02/03/24 17:51 [Iodinated Contrast Media - Vomiting IV Dye] povidone-iodine AdvReac Nausea & Verified 02/03/24 17:51 [From Betadine] Vomiting soap [From Betadine] AdvReac Nausea & Verified 02/03/24 17:51 Vomiting Physical Exam Vitals: Vital Signs Temp Pulse Pulse Resp BP Pulse Ox 02/04/24 06:07 75 18 135/83 94 L 05/08/24 04:23 73 18 138/85 95 02/04/24 00:17 74 18 126/73 94 L 02/03/24 20:39 81 18 138/81 94 L 02/03/24 18:01 71 18 149/91 95 02/03/24 16:22 71 71 18 166/96 94 L 02/03/24 15:51 97.8 F 88 18 175/95 96 Intake and Output 02/03/24 02/04/24 02/04/24 22:59 06:59 14:59 Other: Weight 36.287 kg Results 02/03/24 16:31 02/03/24 16:31 Cardiac Enzymes 02/03/24 02/03/24 02/03/24 Range/Units 16:31 16:31 18:57 AST 23 (14-36) U/L Troponin I <0.012 <0.012 (0.000-0.034) ng/mL 02/03/24 Range/Units 22:43 AST (14-36) U/L Troponin I <0.012 (0.000-0.034) ng/mL Coagulation 02/03/24 Range/Units 16:31 PT 10.5 (10.0-12.5) sec APTT 25.2 (22.0-30.0) sec CBC 02/03/24 Range/Units 16:31 WBC 8.4 (3.8-10.6) k/uL RBC 3.80 (3.80-5.40) m/uL Hgb 12.5 (11.4-16.0) gm/dL Hct 38.0 (34.0-46.0) % Plt Count 233 (150-450) k/uL Comprehensive Metabolic Panel 02/03/24 Range/Units 16:31 Sodium 141 (137-145) mmol/L Potassium 4.1 (3.5-5.1) mmol/L Chloride 114 H (98-107) mmol/L Carbon Dioxide 20 L (22-30) mmol/L BUN 27 H (7-17) mg/dL Creatinine 1.05 H (0.52-1.04) mg/dL Glucose 82 (74-99) mg/dL Calcium 9.2 (8.4-10.2) mg/dL AST 23 (14-36) U/L ALT 8 (4-34) U/L Alkaline Phosphatase 63 (38-126) U/L Total Protein 6.5 (6.3-8.2) g/dL Albumin 3.9 (3.5-5.0) g/dL Current Medications Generic Name Dose Route Start Last Admin Trade Name Freq PRN Reason Stop Dose Admin Hydrocodone Bitart/Acetaminophen 1 each 02/03/24 20:52 02/04/24 04:34 Hydrocodone/Apap 5-325mg 1 Each Tab PO 1 each Q6HR PRN Administration Pain Aspirin 325 mg 02/04/24 09:00 Aspirin 325 Mg Tab PO DAILY JAKE Lidocaine 1 patch 02/03/24 21:00 02/03/24 21:20 Lidocaine 4% Patch TOPICAL 1 patch HS [facility] Administration Protocol Nitroglycerin 0.4 mg 02/03/24 18:17 Nitroglycerin Sl Tabs 0.4 Mg Tab SUBLINGUAL Q5M PRN Chest Pain Nitroglycerin 1 inch 02/04/24 00:00 02/04/24 06:09 Nitroglycerin Oint 1 Inch/Gm Packet TOPICAL 1 inch Q6HR [facility] Administration Intake and Output 02/03/24 02/04/24 02/04/24 22:59 06:59 14:59 Other: Weight 36.287 kg 02/03/24 16:31 02/03/24 16:31
[2024-02-04] MEDS: ASPIRIN 81 MG PO SCH (08:34)
[2024-02-04] MEDS: ISOSORBIDE MONONITRATE ER 60 MG TAB.ER.24H PO SCH (08:34)
[2024-02-04] MEDS: ONDANSETRON 4 MG/2 ML VIAL IVP PRN (08:34)
[2024-02-04] MEDS: lisinopriL 5 MG TAB PO SCH (08:34)
[2024-02-04] MEDS: RANOLAZINE 500 MG TAB.ER.12H PO SCH (08:34)
[2024-02-04] MEDS: ASPIRIN-ACET-CAFF 250-250-65MG 1 EACH TAB PO SCH (08:52)
[2024-02-04] MEDS ORDERED: ASPIRIN 325 MG TAB PO SCH (09:00)
[2024-02-04] MEDS ORDERED: ISOSORBIDE MONONITRATE ER 30 MG TAB.ER.24H PO SCH (09:00)
[2024-02-04] MEDS: FAMOTIDINE 20 MG/2 ML VIAL IV STA (09:43)
[2024-02-04] MEDS: methylPREDNISolone SOD SUCCI 125 MG/2 ML VIAL IV STA (09:43)
[2024-02-04] MEDS: diphenhydrAMINE 50 MG/ML 1 ML VIAL IVP STA (09:44)
[2024-02-04] MEDS ORDERED: ALBUTEROL NEBULIZED 2.5 MG/3 ML INHALATION PRN (10:43)
--- NOTE | 2024-02-04 11:47 | CT ---
EXAMINATION TYPE: CT chest angio for PE CT DLP: 114.70 mGycm, Automated exposure control for dose reduction was used. DATE OF EXAM: 02/04/2024 10:28 AM COMPARISON: Chest radiograph from same day. Multiple CTs of the chest with most recent on . CLINICAL INDICATION:Female, 68 years old with history of elevated d-dimer, r/o PE; Elevated d-dimer TECHNIQUE/CONTRAST: CTA scan of the thorax is performed with IV Contrast, patient injected with 80 mL of Isovue 370, MIP images are created and reviewed these are created on a separate workstation.. FINDINGS: Pulmonary Artery: There is no evidence for a filling defect within the pulmonary vasculature to sugge st acute pulmonary embolism. The pulmonary artery is of normal size. Lungs/Pleura: No evidence of focal consolidation, pleural effusion or pneumothorax. Airway: Large airways are patent. Heart: Heart is within normal limits for size. Vasculature: No evidence of aortic aneurysm. Mediastinum: No gross evidence of adenopathy. Musculoskeletal: No acute osseous abnormalities Soft Tissues: Unremarkable. Lower neck: No significant findings. Upper Abdomen: No significant findings. IMPRESSION: 1. No evidence of pulmonary embolism. 2. Hiatal hernia suspected but not very visible. Follow up recommendations for incidental pulmonary nodules, if there are any, are per [employer] or [employer]. https://radiopaedia.org/articles/zvxabgxjha-[email or web address]-[email or web address]?lang=us
[2024-02-04] MEDS: PANTOPRAZOLE 40 MG TABLET PO SCH (12:27)
[2024-02-04] MEDS: MONTELUKAST 10 MG TAB PO SCH (12:27)
[2024-02-04] MEDS: OXcarbazepine 150 MG TAB PO SCH ×2 (12:28→20:22)
[2024-02-04] MEDS ORDERED: ALPRAZolam 0.5 MG TAB PO PRN (13:22)
[2024-02-04] MEDS ORDERED: NITROGLYCERIN SL TABS 0.4 MG TAB SUBLINGUAL PRN (13:22)
[2024-02-04] MEDS ORDERED: ALPRAZolam 0.25 MG TAB PO PRN (13:22)
[2024-02-04] MEDS: DICYCLOMINE 20 MG TAB PO SCH (13:52)
[2024-02-04 14:29] VITALS: BMI 14.6
[2024-02-04] MEDS: HEPARIN SODIUM,PORCINE 5,000 UNIT/ML 1 ML VIAL SQ SCH (14:40)
[2024-02-04 15:25] LABS: LDL Cholesterol,Calculated 51.3 mg/dL (0.0-131.0)
[2024-02-04 16:10] LABS: BUN/Creat Ratio 18.64 Ratio (12.00-20.00); Blood Urea Nitrogen 20.5 mg/dL (9.0-27.0); Carbon Dioxide 23.4 mmol/L (21.6-31.8); Chloride 106 mmol/L (96-109); Glucose 126 mg/dL (70-110); Potassium 4.6 mmol/L (3.5-5.5); Sodium 138 mmol/L (135-145)
[2024-02-04] MEDS: NICOTINE 21MG/24HR PATCH TRANSDERM SCH (16:13)
[2024-02-04] MEDS: traZODone HCL 50 MG TAB PO SCH (20:21)
[2024-02-04] MEDS: GABAPENTIN 100 MG CAP PO SCH (20:22)
[2024-02-04] MEDS: ATORVASTATIN 20 MG TAB PO SCH (20:22)
[2024-02-04] MEDS: FAMOTIDINE 20 MG TAB PO SCH (20:22)
[2024-02-04] MEDS: SODIUM CHLORIDE 0.9% 1,000 ML in EMPTY BAG 1 BAG IV SCH (23:11)
--- NOTE | 2024-02-05 00:59 | P.HPIM ---
History of Present Illness H&P Date: 02/04/24 Chief Complaint: Chest pain Patient is a 68-year-old female with known history of coronary disease status post stent placement in 2019, fibromyalgia, COPD, hypertension, hyponatremia, chronic low back pain degenerative disc disease, anxiety/depression currently everyday smoker presents to ER with complaints of chest pain. Patient states that she has been having dry heaving and on and off chest pain for the past 3 days. She came to the hospital yesterday evening. Patient states that she started having left retrosternal chest pain and radiated to the neck and left arm. Associate with mild shortness of breath. Patient had nausea and dry heaves again. Did have dizziness and lightheadedness. Patient did have headache otherwise. She thought she had to stop working due to dry heaves. On admission EKG showed sinus rhythm. Chest x-ray showed no acute cardiopulmonary process. COPD changes. CT angiogram of the chest was done due to elevated D-dimer level showed no evidence of PE. Hiatal hernia suspected but not very visible. Laboratory data showed WBC 8.4 hemoglobin 12.5 and platelets 233 and MCV 100.1 D-dimer 1.54 Sodium 141 potassium 4.1 chloride 114 bicarb is 13 BUN 27 creatinine 1.05 Liver US not elevated troponin x 3 negative and LDL 51.3. Review of Systems Constitutional: Patient denies any fever or chills . No generalized weakness or weight loss. Abdomen: Patient denied nausea vomiting and diarrhea and abdominal pain. Cardiovascular: Patient denies any chest pain or short of breath no palpitations. Respiratory: patient denied any cough is from production. No shortness of breath Neurologic: Patient denied any numbness or tingling headache. Musculoskeletal: Patient denies any complaints of joint swelling or deformity. Skin: Negative Psychiatric: Negative Endocrine: No heat or cold intolerance. No recent weight gain. Genitourinary: No dysuria or hematuria. All other 14 point ROS negative except the above Past Medical History Past Medical History: Coronary Artery Disease (CAD), Chest Pain / Angina, COPD, Fibromyalgia, Hyperlipidemia, Hypertension, Osteoarthritis (OA) Additional Past Medical History / Comment(s): Chronic back pain, DDD, bulging discs, scoliosis, osteoporosis., PAST HX JAW FX RT-CAUSES HEADACHES-TAKES TEGRETOL, abdominal aneurysm History of Any Multi-Drug Resistant Organisms: None Reported Past Surgical History: Breast Surgery, Heart Catheterization With Stent, Hyste rectomy, Orthopedic Surgery Additional Past Surgical History / Comment(s): Back injections, L patellar surgery, R carpal tunnel release, L breast benign biopsy, sinus surgery, EGD Past Anesthesia/Blood Transfusion Reactions: No Reported Reaction Date of Last Stent Placement:: 05/10/20 Past Psychological History: Anxiety, Depression Additional Psychological History / Comment(s): Pt resides with her daughter. She uses no assistive device. She does not drive, her daughters take her to appointments. She manages her own medication. Smoking Status: Current every day smoker Past Alcohol Use History: None Reported Additional Past Alcohol Use History / Comment(s): Pt started smoking in 1967 and is a 1ppd smoker. Past Drug Use History: None Reported Additional Drug Use History / Comment(s): Daughters suspect pt may be purchasing medications on the street, but do not know this for certain. - Past Family History Mother Family Medical History: Cancer Additional Family Medical History / Comment(s): Mother had lupus and TB Father History Unknown: Yes Medications and Allergies Home Medications Medication Instructions Recorded Confirmed Type traZODone HCL 150 mg PO HS 30 Days tablet 04/17/22 02/03/24 Rx Mhxypww-Isux-Edro [id number] 2 tab PO TID@0500,1200,2000 10/17/22 02/03/24 History [Excedrin] Atorvastatin Calcium 20 mg PO HS 10/17/22 02/03/24 History Omeprazole 40 mg PO DAILY 10/17/22 02/03/24 History Famotidine [Pepcid] 20 mg PO HS 12/23/22 02/03/24 History Sertraline [Zoloft] 150 mg PO DAILY 12/23/22 02/03/24 History Albuterol Inhaler [Ventolin Hfa 1 puff INHALATION RT-Q4H PRN 09/30/23 02/03/24 History Inhaler] Dicyclomine [Bentyl] 20 mg PO ACHS 02/03/24 02/03/24 History Gabapentin [Neurontin] 100 mg PO BID 02/03/24 02/03/24 History Isosorbide Mononitrate ER [Imdur] 30 mg PO DAILY 02/03/24 02/03/24 History Montelukast [Singulair] 10 mg PO DAILY 02/03/24 02/03/24 History OXcarbazepine [Trileptal] 150 mg PO HS 02/03/24 02/03/24 History OXcarbazepine [Trileptal] 300 mg PO DAILY 02/03/24 02/03/24 History Evu-Nnoo-Ikcec Acid 1 cap PO DAILY 02/03/24 02/03/24 History [-U Capsule (formulary)] lisinopriL [Zestril] 5 mg PO DAILY 02/03/24 02/03/24 History Allergies Allergy/AdvReac Type Severity Reaction Status Date / Time ibuprofen AdvReac NIGHTMARES Verified 02/03/24 17:51 Iodinated Contrast Media AdvReac Nausea & Verified 02/03/24 17:51 [Iodinated Contrast Media - Vomiting IV Dye] povidone-iodine AdvReac Nausea & Verified 02/03/24 17:51 [From Betadine] Vomiting soap [From Betadine] AdvReac Nausea & Verified 02/03/24 17:51 Vomiting Physical Exam Vitals: Vital Signs Temp Pulse Pulse Resp BP BP Pulse Ox 02/04/24 08:41 98.1 F 73 15 159/86 93 L 02/04/24 06:07 75 18 135/83 94 L 02/04/24 04:23 73 18 138/85 95 02/04/24 00:17 74 18 126/73 94 L 02/03/24 20:39 81 18 138/81 94 L 02/03/24 18:01 71 18 149/91 95 02/03/24 16:22 71 71 18 166/96 94 L 02/03/24 15:51 97.8 F 88 18 175/95 96 Intake and Output 02/03/24 02/04/24 02/04/24 22:59 06:59 14:59 Other: # Voids 1 Weight 36.287 kg 36.287 kg PHYSICAL EXAMINATION: Patient is lying in the bed comfortably, no acute distress, awake alert and oriented. Patient is cachectic.. HEENT: Normocephalic. Neck is supple. Pupils reactive. Nostrils clear. Oral cavity is moist. Neck reveals no JVD, carotid bruits, or thyromegaly. CHEST EXAMINATION: Trachea is central. Symmetrical expansion. Lung adler clear to auscultation and percussion. CARDIAC: Normal S1, S2 with no gallops. No murmurs ABDOMEN: Soft. Bowel sounds normal. No organomegaly. No abdominal bruits. Extremities: reveal no edema. No clubbing or cyanosis Neurologically awake, alert, oriented x3 with well-coordinated movements. No focal deficits noted Skin: No rash or skin lesions. Psychiatric: Coperative. Nonsuicidal, anxious. Musculoskeletal: No joint swelling or deformity. Normal range of motion. Results CBC & Chem 7: 02/03/24 16:31 02/04/24 11:20 Labs: Abnormal Lab Results - Last 24 Hours (Table) 02/03/24 02/03/24 02/04/24 Range/Units 16:31 16:31 07:41 MCV 100.1 H (80.0-100.0) fL D-Dimer 1.54 H (<0.60) mg/L FEU Chloride 114 H (98-107) mmol/L Carbon Dioxide 20 L (22-30) mmol/L BUN 27 H (7-17) mg/dL Creatinine 1.05 H (0.52-1.04) mg/dL Thrombosis Risk Factor Assmnt - DVT/VTE Prophylaxis DVT/VTE Prophylaxis: Pharmacologic Prophylaxis ordered Assessment and Plan Assessment: Cardiac chest pain with nausea and dry heaves. Rule out ACS Coronary artery with history of stent placement to left circumflex and chronically occluded RCA Hypertension Hyperlipidemia Carotid stenosis Peripheral vascular disease Ongoing nicotine addiction Anxiety/depression Moderate to severe protein calorie malnutrition GI prophylaxis Pepcid and heparin subcu Plan: Patient will be continued on telemetry monitoring. Serial EKG and troponin x 3 negative. D-dimer is elevated but CT angiogram is negative for PE. Continue with albuterol elation as needed for shortness of breath. Cardiology is planning for catheterization tomorrow. Continue with aspirin and statin send Imdur and ranolazine was added. Time with Patient: Greater than 30
[2024-02-05] MEDS: ATORVASTATIN 80 MG TAB PO ONE (05:32)
[2024-02-05] MEDS: ASPIRIN 325 MG TAB PO ONE (05:32)
[2024-02-05 05:47] LABS: Glucose,Whole Blood 167 mg/dL (70-110)
[2024-02-05] MEDS ORDERED: HEPARIN SODIUM,PORCINE (1 ML) 2,500 UNIT in SODIUM CHLORIDE 0.9% 250 ML IRRIGATION PRN (07:00)
[2024-02-05] MEDS ORDERED: HEPARIN SODIUM,PORCINE 10,000 UNIT in SODIUM CHLORIDE 0.9% 1,000 ML IRRIGATION PRN (07:00)
[2024-02-05 09:31] LABS: African American GFR (CKD) 74 (>60 ml/min/1.73 sqM); Anion Gap 5 mmol/L; Blood Urea Nitrogen 22 mg/dL (7-17); Calcium 9.3 mg/dL (8.4-10.2); Carbon Dioxide 24 mmol/L (22-30); Chloride 107 mmol/L (98-107); Glucose 102 mg/dL (74-99); Non-African American GFR(CKD) 64 (>60 ml/min/1.73 sqM); Potassium 4.6 mmol/L (3.5-5.1); Sodium 136 mmol/L (137-145)
--- NOTE | 2024-02-05 12:02 | CA ---
Transthoracic Echo Report Name: Shantell Dela Cruz Age: 68 Gender: F : 1955 Exam Date: 02/05/2024 07:41 Exam Location: [facility] Ht (in): 62 Wt (lb): 80 Ordering Physician: Aury Lei Attending/Referring Phys: [id number], Quique Clock Repair Technician Angie Bennett RDCS Procedure CPT: Indications: CP, LV function Cardiac Hx: Technical Quality: Good Contrast 1: Total Dose (mL): Contrast 2: Total Dose (mL): MEASUREMENTS (Male / Female) Normal Values 2D ECHO LV Diastolic Diameter PLAX 4.0 cm 4.2 - 5.9 / 3.9 - 5.3 cm LV Systolic Diameter PLAX 3.1 cm IVS Diastolic Thickness 0.9 cm 0.6 - 1.0 / 0.6 - 0.9 cm LVPW Diastolic Thickness 0.7 cm 0.6 - 1.0 / 0.6 - 0.9 cm LV Relative Wall Thickness 0.4 RV Internal Dim ED PLAX 2.6 cm LVOT Diameter 2.1 cm LV Diastolic Volume MOD BP 82.4 cm??? 67 - 155 / 56 - 104 cm??? LV Systolic Volume MOD BP 41.2 cm??? 22 - 58 / 19 - 49 cm??? LV Ejection Fraction MOD BP 50.0 % >= 55 % LV Cardiac Index MOD BP 2152.2 cm???/min???m??? LV Diastolic Volume MOD 4C 76.2 cm??? LV Systolic Volume MOD 4C 44.4 cm??? LV Ejection Fraction MOD 4C 41.7 % LV Cardiac Index MOD 4C 1661.4 cm???/min???m??? LV Diastolic Length 4C 7.3 cm LV Systolic Length 4C 6.6 cm LV Diastolic Volume MOD 2C 87.9 cm??? LV Systolic Volume MOD 2C 36.2 cm??? LV Ejection Fraction MOD 2C 58.9 % LV Cardiac Index MOD 2C 2705.8 cm???/min???m??? LV Diastolic Length 2C 7.1 cm LV Systolic Length 2C 6.2 cm LA Volume 59.3 cm??? 18 - 58 / 22 - 52 cm??? LA Volume Index 47.7 cm???/m??? 16 - 28 cm???/m??? DOPPLER AV Peak Velocity 86.5 cm/s AV Peak Gradient 3.0 mmHg AV Mean Velocity 61.3 cm/s AV Mean Gradient 1.7 mmHg AV Velocity Time Integral 19.7 cm LVOT Peak Velocity 85.2 cm/s LVOT Peak Gradient 2.9 mmHg LVOT Velocity Time Integral 17.5 cm LVOT Stroke Volume 59.7 cm??? LVOT Stroke Volume Index 46.1 ml/m??? LVOT Cardiac Index 3119.4 cm???/min???m??? AV Area Cont Eq vti 3.0 cm??? AV Area Cont Eq pk 3.4 cm??? MV Area PHT 4.1 cm??? Mitral E Point Velocity 47.5 cm/s Mitral A Point Velocity 51.3 cm/s Mitral E to A Ratio 0.9 MV Deceleration Time 182.9 ms TR Peak Velocity 247.7 cm/s TR Peak Gradient 24.5 mmHg Right Atrial Pressure 15.0 mmHg Pulmonary Artery Systolic Pressu 39.5 mmHg Right Ventricular Systolic Press 39.5 mmHg PV Peak Velocity 88.0 cm/s PV Peak Gradient 3.1 mmHg FINDINGS Left Ventricle Left ventricular ejection fraction is estimated at 45-50 %. Mildly decreased left ventricular ejection fraction. Left ventricular cavity size normal. Left ventricular wall thickness normal. No obvious regional wall motion abnormalities. Right Ventricle Normal right ventricular size and function. Mildly elevated right ventricular systolic pressure. Right Atrium Normal right atrial size. Left Atrium Mildly increased left atrial volume. Mitral Valve Structurally normal mitral valve. Mild mitral annular calcification. No evidence for mitral valve prolapse. No mitral stenosis. Mild mitral regurgitation. Aortic Valve Trileaflet aortic valve. No aortic valve stenosis or regurgitation. Tricuspid Valve Structurally normal tricuspid valve. No tricuspid stenosis. Mild tricuspid regurgitation. Pulmonic Valve Structurally normal pulmonic valve. No pulmonic stenosis. No pulmonic regurgitation. Pericardium No pericardial effusion. Aorta Aortic annulus normal. Ascending aorta not well visualized. CONCLUSIONS Technically difficult study for interpretation Mildly impaired LV function was here between 45-50% Previewed by: Dr. Juventino Alex MD (Electronically Signed) Final Date: 05 Feb 2024 12:01
[2024-02-05] MEDS: methylPREDNISolone SOD SUCCI 125 MG/2 ML VIAL IV STA ×2 (12:11→15:54)
[2024-02-05] MEDS ORDERED: VERAPAMIL 2.5 MG/ML 2 ML AMP ONE (12:45)
[2024-02-05] MEDS ORDERED: LIDOCAINE 1% INJ 10MG/ML (20 ML MDV) ONE (12:45)
[2024-02-05] MEDS: MIDAZOLAM 2 MG/2 ML VIAL IVP ONE (12:57)
[2024-02-05] MEDS: VERAPAMIL SYRINGE (5 MG/10 ML) INTRAARTER ONE (12:57)
[2024-02-05] MEDS: LIDOCAINE 1% INJ 10MG/ML (20 ML MDV) SQ ONE (12:57)
[2024-02-05] MEDS: diphenhydrAMINE 50 MG/ML 1 ML VIAL IVP ONE (12:57)
[2024-02-05] MEDS ORDERED: diphenhydrAMINE 50 MG/ML 1 ML VIAL ONE (12:58)
[2024-02-05] MEDS: HEPARIN SODIUM 1,000 UN/ML (10ML VL) IVP ONE (13:02)
[2024-02-05] MEDS: SODIUM CHLORIDE 0.9% 1,000 ML IV ONE (13:03)
[2024-02-05] MEDS: IOPAMIDOL-370 100ML BTL INJ ONE (13:19)
[2024-02-05] MEDS ORDERED: ALPRAZolam 0.25 MG TAB PO PRN (13:44)
[2024-02-05] MEDS ORDERED: NITROGLYCERIN SL TABS 0.4 MG TAB SUBLINGUAL PRN (13:44)
[2024-02-05] MEDS ORDERED: ALPRAZolam 0.5 MG TAB PO PRN (13:44)
--- NOTE | 2024-02-05 14:51 | P.PN ---
Subjective Progress Note Date: 02/05/24 Patient is a 68-year-old female with known history of coronary disease status post stent placement in 2020, fibromyalgia, COPD, hypertension, hyponatremia, chronic low back pain degenerative disc disease, anxiety/depression currently everyday smoker presents to ER with complaints of chest pain. Patient states that she has been having dry heaving and on and off chest pain for the past 3 days. She came to the hospital yesterday evening. Patient states that she started having left retrosternal chest pain and radiated to the neck and left arm. Associate with mild shortness of breath. Patient had nausea and dry heaves again. Did have dizziness and lightheadedness. Patient did have headache otherwise. She thought she had to stop working due to dry heaves. On admission EKG showed sinus rhythm. Chest x-ray showed no acute cardiopulmonary process. COPD changes. CT angiogram of the chest was done due to elevated D-dimer level showed no evidence of PE. Hiatal hernia suspected but not very visible. Laboratory data showed WBC 8.4 hemoglobin 12.5 and platelets 233 and MCV 100.1 D-dimer 1.54 Sodium 141 potassium 4.1 chloride 114 bicarb is 13 BUN 27 creatinine 1.05 Liver US not elevated troponin x 3 negative and LDL 51.3. 02/05/2024 Patient is seen in follow-up today scheduled to undergo cardiac catheterization with cardiology following. Patient is extremely anxious and wants to get the cardiac catheterization done so she can go home. Patient reports currently she has no chest pain or shortness of breath but had been having severe pain 10/10 over the last 4 days. Patient does have significant cardiac history and follows with cardiology outpatient. Will await cardiology report and clearance. Review of systems: Constitutional: No reports of fatigue, fever, or chills, reports feeling anxious Cardiovascular: No reports of chest pain or palpitations Respiratory: No reports of shortness of breath or cough GI: No reports of nausea, vomiting, or diarrhea : No reports of dysuria or retention Neurovascular: No reports of weakness or numbness All medications have been reviewed PHYSICAL EXAMINATION: Patient is sitting up in the bed comfortably, awake alert and oriented. Patient is cachectic.. Thin built, elderly appearing, anxious HEENT: Normocephalic. Neck is supple. Pupils reactive. Nostrils clear. Oral cavity is moist. Neck reveals no JVD, carotid bruits, or thyromegaly. CHEST EXAMINATION: Trachea is central. Symmetrical expansion. Lung adler clear to auscultation and percussion. CARDIAC: Normal S1, S2 with no gallops. No murmurs ABDOMEN: Soft. Bowel sounds normal. No organomegaly. No abdominal bruits. Extremities: reveal no edema. No clubbing or cyanosis Neurologically awake, alert, oriented x3 with well-coordinated movements. No focal deficits noted Skin: No rash or skin lesions. Psychiatric: Coperative. Nonsuicidal, anxious. Musculoskeletal: No joint swelling or deformity. Normal range of motion. Assessment: Cardiac chest pain with nausea and dry heaves. Ruled out ACS. Scheduled to undergo cardiac catheterization on 02/05/2024 Coronary artery with history of stent placement to left circumflex and chronically occluded RCA Hypertension Hyperlipidemia Carotid stenosis Peripheral vascular disease Ongoing nicotine addiction Anxiety/depression Moderate protein calorie malnutrition GI prophylaxis Pepcid DVT prophylaxis: Heparin subcu Full code Plan: Patient will be continued on telemetry monitoring. Troponins negative and ACS ruled out. Cardiology following given patient's significant cardiology history recommending cardiac catheterization which is currently pending for today. Patient is n.p.o. currently and will be resuming diet once cleared by cardiology D-dimer was elevated but CT angiogram is negative for PE. Continue with albuterol treatments as needed for shortness of breath. Continue with current medications and will await cardiology clearance Due to multiple complex medical issues, prognosis is guarded The impression and plan of care has been dictated by Hailee Dale, Nurse Practitioner as directed. Dr. Garrett MD I have performed a history and examination and MDM of this patient, discussed the same with the dictator, and agree with the dictator's assessment and plan as written ,documented as a scribe. Based on total visit time, I have performed more than 50% of the visit. Objective - Vital Signs Vital signs: Vital Signs Temp 97.9 F 02/05/24 07:05 Pulse 81 02/05/24 08:29 Resp 17 02/05/24 08:29 BP 169/88 02/05/24 07:05 Pulse Ox 96 02/05/24 07:05 FiO2 Intake & Output 02/04/24 02/05/24 02/05/24 18:59 06:59 18:59 Intake Total 240 732 50 Balance 240 732 50 Weight 36.287 kg Intake: IV 50 Intake, IV Titration 252 Amount Sodium Chloride 0.9% 1, 252 000 ml In Empty Bag 1 bag @ 1 ML/KG/HR 36.287 mls/ hr IV .Q24H JAKE Rx#: [id number] Oral 240 480 Other: Voiding Method Toilet Toilet # Voids 2 3 2 # Bowel Movements 3 - Labs CBC & Chem 7: 02/03/24 16:31 02/05/24 08:05 Labs: Abnormal Lab Results - Last 24 Hours (Table) 02/04/24 02/05/24 02/05/24 Range/Units 11:20 05:46 08:05 Sodium 136 L (137-145) mmol/L BUN 22 H (7-17) mg/dL Est GFR (CKD-EPI) 55 L (>=60) Glucose 126 H 102 H (70-110) mg/dL POC Glucose (mg/dL) 167 H (70-110) mg/dL
[2024-02-05] MEDS: SERTRALINE 50 MG TAB PO SCH (15:54)
--- NOTE | 2024-02-05 20:53 | P.PCN ---
Date of Procedure: 02/05/24 Operative Findings: CARDIAC CATHETERIZATION PERFORMING PHYSICIAN: Juventino Alex MD, RPVI PROCEDURE PERFORMED: 1. Selective right and left coronary angiogram 2. Left heart catheterization 3. Ultrasound-guided access of the right radial artery INDICATION: Chest discomfort concerning for unstable angina COMPLICATION: None APPROACH: Right radial artery LEVEL OF SEDATION: Moderate with a sedation length of 30 minutes PROCEDURE DESCRIPTION: After obtaining an informed consent, the patient was brought to cardiac slabbing machine operator. Local anesthesia was performed using lidocaine subcutaneously. The right radial artery was cannulated using Seldinger technique, the guidewire passed easily, following that we advanced a 5-Russian sheath dilator assembly, the wire and dilator were removed and sheath was flushed. Following that, 2 mg of verapamil along with 3000 unit heparin were given. Selective right and left coronary angiogram using a 6-Russian JR4 and JL 3.5 catheters. Following that we did left heart catheterization using 6-Russian pigtail catheter. The procedure was completed there was no complication. SELECTIVE CORONARY ANGIOGRAM: The right coronary artery: Large-caliber vessel and a dominant vessel and RCA is chronically occluded which is a known finding from before Left main: Is angiographically normal. Bifurcates into an LCx and LAD The left circumflex: Large caliber vessel none dominant vessel. The proximal LCx gives rise into OM1 which works as a ramus intermedius and has intermediate lesion appears to be in the range of 60%. The mid left circumflex has another intermediate lesion appears to be in the range of 60% as well The left anterior descending artery: Large caliber vessel with mild to moderate disease with no high-grade stenosis identified HEMODYNAMICS: LVEDP was about 12 mmHg with no significant gradient across aortic valve CONCLUSION: 1. Intermediate disease involving the ramus intermedius and left circumflex 2. Mild disease involving the LAD POSTPROCEDURE MANAGEMENT: FFR of the ramus intermedius and LCx
[2024-02-06] MEDS: SODIUM CHLORIDE 0.9% 1,000 ML in EMPTY BAG 1 BAG IV SCH (00:28)
[2024-02-06] MEDS: ATORVASTATIN 80 MG TAB PO ONE (05:32)
[2024-02-06] MEDS: ASPIRIN 325 MG TAB PO ONE (05:32)
[2024-02-06] MEDS ORDERED: HEPARIN SODIUM,PORCINE 10,000 UNIT in SODIUM CHLORIDE 0.9% 1,000 ML IRRIGATION PRN (07:00)
[2024-02-06] MEDS ORDERED: HEPARIN SODIUM,PORCINE (1 ML) 2,500 UNIT in SODIUM CHLORIDE 0.9% 250 ML IRRIGATION PRN (07:00)
[2024-02-06 10:07] LABS: African American GFR (CKD) 58 (>60 ml/min/1.73 sqM); Anion Gap 4 mmol/L; Blood Urea Nitrogen 29 mg/dL (7-17); Calcium 8.5 mg/dL (8.4-10.2); Carbon Dioxide 26 mmol/L (22-30); Chloride 111 mmol/L (98-107); Glucose 110 mg/dL (74-99); Non-African American GFR(CKD) 50 (>60 ml/min/1.73 sqM); Potassium 4.5 mmol/L (3.5-5.1); Sodium 141 mmol/L (137-145)
[2024-02-06] MEDS: methylPREDNISolone SOD SUCCI 125 MG/2 ML VIAL IV STA (11:00)
[2024-02-06] MEDS: FAMOTIDINE 20 MG/2 ML VIAL IV STA (11:01)
[2024-02-06] MEDS: diphenhydrAMINE 50 MG/ML 1 ML VIAL IVP STA (11:01)
[2024-02-06] MEDS ORDERED: LIDOCAINE 1% INJ 10MG/ML (20 ML MDV) ONE (11:28)
[2024-02-06] MEDS ORDERED: VERAPAMIL 2.5 MG/ML 2 ML AMP ONE (11:28)
[2024-02-06] MEDS ORDERED: HEPARIN SODIUM 1,000 UN/ML (10ML VL) ONE (11:33)
[2024-02-06] MEDS: SODIUM CHLORIDE 0.9% 1,000 ML IV ONE (11:42)
[2024-02-06] MEDS: LIDOCAINE 1% INJ 10MG/ML (20 ML MDV) SQ ONE (11:47)
[2024-02-06] MEDS: MIDAZOLAM 2 MG/2 ML VIAL IVP ONE (11:47)
[2024-02-06] MEDS: HEPARIN SODIUM 1,000 UN/ML (10ML VL) IVP ONE (11:51)
[2024-02-06] MEDS: IOPAMIDOL-370 100ML BTL INJ ONE (12:05)
[2024-02-06] MEDS ORDERED: RX INFO: IV CONTRAST WAS GIVEN 1 EACH MISC MISCELLANE PRN (12:15)
--- NOTE | 2024-02-06 12:20 | P.PCN ---
Date of Procedure: 02/06/24 Operative Findings: CARDIAC CATHETERIZATION PERFORMING PHYSICIAN: Juvention Alex MD, RPVI PROCEDURE PERFORMED: 1. IFR of the first obtuse marginal branch of the left circumflex 2. IFR of the AV groove left circumflex 3. Ultrasound-guided access of the right common femoral artery and selective right common femoral artery angiogram INDICATION: Intermediate two-vessel coronary artery disease involving the first obtuse marginal branch as well as the left circumflex COMPLICATION: None APPROACH: Right common femoral artery LEVEL OF SEDATION: Moderate with sedation in length of 30 minutes PROCEDURE DESCRIPTION: After obtaining an informed consent, the patient was brought to cardiac chemical processing laborer. Local anesthesia was performed using lidocaine subcutaneously. The right common femoral artery was cannulated using micropuncture technique under ultrasound guidance, the guidewire passed easily, following that we advanced a 6 Burmese sheath dilator assembly, the wire and dilator were removed and sheath was flushed. After zeroing the Doppler wire and equalizing between the Doppler wire and guiding catheter which was JL 3.5 guiding catheter the left main was engaged and subsequently the first obtuse marginal branch of the left circumflex which works as a ramus intermedius was wired and IFR came to be at 0.96. Subsequently the wire was directed toward the left circumflex and IFR came to be at 0.95. Finally selective right common femoral artery angiogram. The procedure was completed with no complication The procedure was completed there was no complication. CONCLUSION: 1. IFR of the OM1 of the LCx was done and came in to be nonischemic at 0.96 2. IFR of the left circumflex was also performed and came in to be nonischemic at 0.95 POSTPROCEDURE MANAGEMENT: Maximize medical treatment and follow-up with the patient
[2024-02-06] MEDS: SODIUM CHLORIDE 0.9% 1,000 ML IV SCH (16:06)
--- NOTE | 2024-02-07 05:42 | P.DS ---
Providers Date of admission: 02/03/24 18:19 Expected date of discharge: 02/06/24 Attending physician: Christi Dominique Consults: 02/03/24 18:18 Consult Physician Urgent Consulting Provider: [facility] Consult Reason/Comments: Chest pain Do you want consulting provider notified?: Yes Primary care physician: Marium Mazariegos Hospital Course: Final diagnosis Cardiac chest pain with nausea and dry heaves. Ruled out ACS. cardiac catheterization on 02/06/2024 with no intervention at this time Coronary artery with history of stent placement to left circumflex and lunchroom worker nically occluded RCA Hypertension Hyperlipidemia Carotid stenosis Peripheral vascular disease Ongoing nicotine addiction Anxiety/depression Moderate protein calorie malnutrition GI prophylaxis Pepcid DVT prophylaxis: Heparin subcu Full code Discharge disposition Patient is being discharged in a stable condition with guarded prognosis to home. Patient will follow-up with Dr. Mazariegos in the outpatient setting upon discharge. Patient is to continue with current adjustments in medications and outpatient follow-up with cardiology as scheduled. Strongly encouraged complete smoking cessation. Total time taken is greater than 35 minutes. Hospital course This is a 68-year-old female who was recently admitted with chest pain with nausea and dry heaves that has been ongoing and progressively getting worse over the last 4 days. Patient was evaluated by cardiology and ACS was ruled out. Patient has extensive cardiac history recommending cardiac catheterization and patient was agreeable. Patient initially underwent cardiac catheterization on 02/05/2024 although there were issues within the Optimization Consultant regarding equipment and catheterization was postponed to 02/06/2024. Patient was brought down again for cardiac catheterization disease was noted as chronic with no ischemia and no stenting was provided. Patient was cleared by cardiology post protocol. Please refer to cardiology notes for further HPI. Currently no reports of chest pain, shortness of breath, or palpitations. Patient is afebrile. No reports of nausea or vomiting and patient is tolerating diet. Patient will be discharged home later today. Guarded prognosis Physical exam: Gen: This is a 68-year-old female who is awake, alert and oriented x 3, thin built, elderly appearing HEENT: Head is atraumatic, normocephalic. Pupils equal, round. Sclerae is anicteric. NECK: Supple. No JVD. No lymphadenopathy. No thyromegaly. LUNGS: Diminished breath sounds bilaterally otherwise clear to auscultation. No wheezes or rhonchi. No intercostal retractions. HEART: S1, S2 are muffled ABDOMEN: Soft. Thin. Bowel sounds are present. No masses. No tenderness. EXTREMITIES: No pedal edema. No calf tenderness. NEUROLOGICAL: Patient is awake, alert and oriented x3. Cranial nerves 2 through 12 are grossly intact. Please refer to medication reconciliation sheet for a list of medications. The impression and plan of care has been dictated by Hailee Dale, Nurse Practitioner as directed. Dr. Trip MD I have performed a history and examination and MDM of this patient, discussed the same with the dictator, and agree with the dictator's assessment and plan as written ,documented as a scribe. Based on total visit time, I have performed more than 50% of the visit. Patient Condition at Discharge: Fair Plan - Discharge Summary New Discharge Prescriptions: New Aspirin 81 mg PO DAILY #30 tab Isosorbide Mononitrate ER [Imdur] 60 mg PO DAILY #30 tab Ranolazine [Ranexa] 500 mg PO Q12HR #60 tab Nicotine 21Mg/24Hr Patch [Habitrol] 1 patch TRANSDERM DAILY patch Lidocaine 4% Patch 1 patch TOPICAL HS PRN #20 patch PRN Reason: Pain Continue traZODone HCL 150 mg PO HS 30 Days tablet Omeprazole 40 mg PO DAILY Sertraline [Zoloft] 150 mg PO DAILY Famotidine [Pepcid] 20 mg PO HS lisinopriL [Zestril] 5 mg PO DAILY Montelukast [Singulair] 10 mg PO DAILY OXcarbazepine [Trileptal] 150 mg PO HS Eet-Layp-Quuyz Acid [-U Capsule (formulary)] 1 cap PO DAILY Atorvastatin Calcium 20 mg PO HS Atbyvop-Jxbs-Lkoh [phone] [Excedrin] 2 tab PO TID@0500,1200,2000 Albuterol Inhaler [Ventolin Hfa Inhaler] 1 puff INHALATION RT-Q4H PRN PRN Reason: Shortness Of Breath Dicyclomine [Bentyl] 20 mg PO ACHS Gabapentin [Neurontin] 100 mg PO BID OXcarbazepine [Trileptal] 300 mg PO DAILY Discontinued Isosorbide Mononitrate ER [Imdur] 30 mg PO DAILY Discharge Medication List traZODone HCL 150 mg PO HS 30 Days tablet 07/20/22 [Rx] Avkewcb-Ojoe-Mrgo [phone] [Excedrin] 2 tab PO TID@0500,1200,2000 10/17/22 [History] Atorvastatin Calcium 20 mg PO HS 10/17/22 [History] Omeprazole 40 mg PO DAILY 10/17/22 [History] Famotidine [Pepcid] 20 mg PO HS 12/23/22 [History] Sertraline [Zoloft] 150 mg PO DAILY 12/23/22 [History] Albuterol Inhaler [Ventolin Hfa Inhaler] 1 puff INHALATION RT-Q4H PRN 09/30/23 [History] Dicyclomine [Bentyl] 20 mg PO ACHS 02/03/24 [History] Gabapentin [Neurontin] 100 mg PO BID 02/03/24 [History] Montelukast [Singulair] 10 mg PO DAILY 02/03/24 [History] OXcarbazepine [Trileptal] 150 mg PO HS 02/03/24 [History] OXcarbazepine [Trileptal] 300 mg PO DAILY 02/03/24 [History] Oys-Nyhi-Tchgd Acid [-U Capsule (formulary)] 1 cap PO DAILY 02/03/24 [History] lisinopriL [Zestril] 5 mg PO DAILY 02/03/24 [History] Aspirin 81 mg PO DAILY #30 tab 02/06/24 [Rx] Isosorbide Mononitrate ER [Imdur] 60 mg PO DAILY #30 tab 02/06/24 [Rx] Lidocaine 4% Patch 1 patch TOPICAL HS PRN #20 patch 02/06/24 [Rx] Nicotine 21Mg/24Hr Patch [Habitrol] 1 patch TRANSDERM DAILY patch 02/06/24 [Rx] Ranolazine [Ranexa] 500 mg PO Q12HR #60 tab 02/06/24 [Rx] Follow up Appointment(s)/Referral(s): Marium Mazariegos MD [Primary Care Provider] - 1-2 days Juventino Alex MD [STAFF PHYSICIAN] - 1 Week Activity/Diet/Wound Care/Special Instructions: Activity limited until follow-up Follow-up with primary care provider on discharge Follow-up with cardiology outpatient Continue taking medications as prescribed Avoid all tobacco use and exposure Discharge Disposition: HOME SELF-CARE
[2024-02-07 07:42] VITALS: RESP 17; TEMP 97.3
[2024-02-07 12:35] VITALS: BP 147/76; PULSE 72
--- NOTE | 2024-02-07 20:02 | DS ---
DISCHARGE SUMMARY ADDENDUM: HISTORY OF PRESENT ILLNESS: This 68-year-old woman was admitted with chest pain, had cardiac catheterization and iFR for intermediate coronary lesions. The lesions were found to be nonischemic. Please refer to the Cardiology notes for further details. Recommend maximum medical treatment. PHYSICAL EXAMINATION: VITAL SIGNS: Stable. CARDIOVASCULAR: S1 and S2. ABDOMEN: Soft. NERVOUS SYSTEM: No focal deficit. Please refer to the previous discharge summary for further details. Follow up with the primary physician and followup labs CBC, BMP, also with Dr. Causey and follow Dr. Alex as recommended. MMODL / IJN: [id number] /
--- NOTE | 2024-02-07 21:47 | PN ---
PROGRESS NOTE DATE OF SERVICE: 02/06/2024 SUBJECTIVE: This 68-year-old woman was admitted with chest pain and the patient is planning iFR by Cardiology. No fever. No cough. OBJECTIVE: VITAL SIGNS: Pulse is 89, blood pressure n, and respirations 18. CARDIOVASCULAR: S1, S2. ABDOMEN: Soft. NERVOUS SYSTEM: Nonfocal. LABORATORY DATA: Reviewed. ASSESSMENT: 1. Intermediate coronary artery disease, rule out ischemic lesions for iFR. 2. Coronary artery disease stent. 3. Hypertension. 4. Multiple medical issues. RECOMMENDATIONS: Recommend to continue current management and symptomatic treatment. Otherwise, maximize medical treatment per Cardiology. Guarded prognosis. Further recommendations to follow. MMODL / IJN: [id number] / SUSIE
== END 2024-02-07 13:36 | disposition home or self-care (01) | DRG 287 ==
LOC: EC 15:49 → OBSVTOIN 18:19 → INTOOBSV 18:19 → 6NMEDSUR 18:19
PROVIDERS: ADMIT Hospitalist; ATTEND Hospitalist
PROC: 4A023N7 Measurement of Cardiac Sampling and Pressure, Left Heart, Percutaneous Approach (ICD-10-PCS; principal; 2024-02-05 08:40)
PROC: B2111ZZ Fluoroscopy of Multiple Coronary Arteries using Low Osmolar Contrast (ICD-10-PCS; principal; 2024-02-05 08:40)
PROC: 4A033BC Measurement of Arterial Pressure, Coronary, Percutaneous Approach (ICD-10-PCS; 2024-02-06 13:00)
DX: I25.10 Atherosclerotic heart disease of native coronary artery without angina pectoris (principal); E44.0 Moderate protein-calorie malnutrition; E87.1 Hypo-osmolality and hyponatremia; Z68.1 Body mass index [BMI] 19.9 or less, adult; I25.82 Chronic total occlusion of coronary artery; I73.9 Peripheral vascular disease, unspecified; J44.9 Chronic obstructive pulmonary disease, unspecified; I71.40 Abdominal aortic aneurysm, without rupture, unspecified; F32.A Depression, unspecified; I10 Essential (primary) hypertension; I65.29 Occlusion and stenosis of unspecified carotid artery; E78.00 Pure hypercholesterolemia, unspecified; F41.9 Anxiety disorder, unspecified; K21.9 Gastro-esophageal reflux disease without esophagitis; G89.29 Other chronic pain; M54.50 Low back pain, unspecified; M79.7 Fibromyalgia; M41.9 Scoliosis, unspecified; M81.0 Age-related osteoporosis without current pathological fracture; M19.90 Unspecified osteoarthritis, unspecified site; F17.210 Nicotine dependence, cigarettes, uncomplicated; Z71.6 Tobacco abuse counseling; Z79.899 Other long term (current) drug therapy; Z71.3 Dietary counseling and surveillance; Z95.5 Presence of coronary angioplasty implant and graft; Z88.8 Allergy status to other drugs, medicaments and biological substances; Z88.6 Allergy status to analgesic agent; Z91.041 Radiographic dye allergy status
CPT/HCPCS: 36415; 71046; 71275; 76937; 80048; 80053; 80061; 80183; 83735; 84484; 85025; 85379; 85610; 85730; 93005; 93306; 93454; 93458; 93799; 94760; 96374; 96375; 99285

== ENCOUNTER 2024-03-31 07:26 | Emergency (ER) | payer MEDICARE ==
[2024-03-31] MEDS: ORPHENADRINE 30 MG/ML 2 ML VIAL IM STA (07:58)
[2024-03-31] MEDS: MORPHINE SULFATE 4 MG/ML SYRINGE IM STA (08:01)
--- NOTE | 2024-03-31 08:43 | XR ---
EXAM TYPE: LUMBAR SPINE X RAY SERIES COMPARISON: 09/11/2023 HISTORY: Low back pain TECHNIQUE: 4 views are submitted. FINDINGS: Alignment is anatomic. The pedicles are intact. The transverse processes are intact. There is diff use demineralization. Slight curvature of the spine. There is a grade 1 anterolisthesis L3-L4 with mu ltilevel moderate degenerative disc disease and facet arthropathy. Suspect foraminal encroachment at L4-5 and L5-S1. Pedicles are intact. Vascular calcifications are noted. I suspect there may be a aneu rysm of the lower abdominal aorta measuring 3.3 cm. IMPRESSION: 1. Multilevel moderate degenerative disc disease with suspected foraminal protrusion and lower lumbar spine. 2. Findings are suggestive of a 3.2 cm infrarenal abdominal aortic aneurysm. Similar to prior x-ray.
[2024-03-31] MEDS: LIDOCAINE 4% PATCH TOPICAL ONE (09:27)
[2024-03-31] MEDS: HYDROmorphone 1 MG/ML 1 ML SYRINGE IM STA (09:28)
[2024-03-31] MEDS: predniSONE 20 MG TAB PO STA (10:32)
[2024-03-31 11:14] VITALS: RESP 16
[2024-03-31] MEDS: HYDROcodone/APAP 10-325MG 1 EACH TAB PO ONE (11:16)
--- NOTE | 2024-03-31 11:18 | ED ---
Back Pain HPI - General Chief Complaint: Back Pain/Injury Stated Complaint: back pain Time Seen by Provider: 03/31/24 07:33 Source: patient Limitations: no limitations - History of Present Illness Initial Comments: 69-year-old female with past medical history of chronic back pain, degenerative disc disease, bulging disks, scoliosis who presents emergency department re porting back pain. States that she awoke this morning and bent down to feed her cats. She had sudden onset of pain in her low back. States that it radiates across both buttocks. Denies pain that goes into the leg. She was unable to stand up and therefore her daughter called EMS. She did not take anything for pain before coming in. She does admit that she has seen pain management before in the past and had injections. She has not had injections in several years. She denies any bowel or bladder incontinence. She denies any saddle anesthesia. No other alleviating, precipitating or modifying factors - Related Data Home Medications Medication Instructions Recorded Confirmed Utgxrau-Erxp-Brze [id number] 2 tab PO TID@0500,1200,199910/17/22 02/03/24 [Excedrin] Atorvastatin Calcium 20 mg PO HS 10/17/22 02/03/24 Omeprazole 40 mg PO DAILY 10/17/22 02/03/24 Famotidine [Pepcid] 20 mg PO HS 12/23/22 02/03/24 Sertraline [Zoloft] 150 mg PO DAILY 12/23/22 02/03/24 Albuterol Inhaler [Ventolin Hfa 1 puff INHALATION RT-Q4H PRN 09/30/23 02/03/24 Inhaler] Dicyclomine [Bentyl] 20 mg PO ACHS 02/03/24 02/03/24 Gabapentin [Neurontin] 100 mg PO BID 02/03/24 02/03/24 Montelukast [Singulair] 10 mg PO DAILY 02/03/24 02/03/24 OXcarbazepine [Trileptal] 150 mg PO HS 02/03/24 02/03/24 OXcarbazepine [Trileptal] 300 mg PO DAILY 02/03/24 02/03/24 Rii-Qwwc-Qtbqg Acid 1 cap PO DAILY 02/03/24 02/03/24 [-U Capsule (formulary)] lisinopriL [Zestril] 5 mg PO DAILY 02/03/24 02/03/24 Previous Rx's Medication Instructions Recorded traZODone HCL 150 mg PO HS 30 Days tablet 04/17/22 Aspirin 81 mg PO DAILY #30 tab 02/06/24 Isosorbide Mononitrate ER [Imdur] 60 mg PO DAILY #30 tab 02/06/24 Lidocaine 4% Patch 1 patch TOPICAL HS PRN #20 patch 02/06/24 Nicotine 21Mg/24Hr Patch [Habitrol] 1 patch TRANSDERM DAILY patch 02/06/24 Ranolazine [Ranexa] 500 mg PO Q12HR #60 tab 02/06/24 Cyclobenzaprine [Flexeril] 10 mg PO TID #20 tab 03/31/24 HYDROcodone/APAP 10-325MG [Scott 1 tab PO Q4HR PRN #18 tab 03/31/24 10-325] predniSONE [Deltasone] 20 mg PO BID #10 tab 03/31/24 Allergies Allergy/AdvReac Type Severity Reaction Status Date / Time ibuprofen AdvReac NIGHTMARES Verified 03/31/24 07:35 Iodinated Contrast Media AdvReac Nausea & Verified 03/31/24 07:35 [Iodinated Contrast Media - Vomiting IV Dye] povidone-iodine AdvReac Nausea & Verified 03/31/24 07:35 [From Betadine] Vomiting soap [From Betadine] AdvReac Nausea & Verified 03/31/24 07:35 Vomiting Review of Systems ROS Statement: Those systems with pertinent positive or pertinent negative responses have been documented in the HPI. ROS Other: All systems not noted in ROS Statement are negative. Past Medical History Past Medical History: Coronary Artery Disease (CAD), Chest Pain / Angina, COPD, Fibromyalgia, Hyperlipidemia, Hypertension, Osteoarthritis (OA) Additional Past Medical History / Comment(s): Chronic back pain, DDD, bulging discs, scoliosis, osteoporosis., PAST HX JAW FX RT-CAUSES HEADACHES-TAKES TEGRETOL, abdominal aneurysm History of Any Multi-Drug Resistant Organisms: None Reported Past Surgical History: Breast Surgery, Heart Catheterization With Stent, Hysterectomy, Orthopedic Surgery Additional Past Surgical History / Comment(s): Back injections, L patellar surgery, R carpal tunnel release, L breast benign biopsy, sinus surgery, EGD Past Anesthesia/Blood Transfusion Reactions: No Reported Reaction Date of Last Stent Placement:: 05/10/20 Past Psychological History: Anxiety, Depression Smoking Status: Current every day smoker Past Alcohol Use History: None Reported Past Drug Use History: None Reported - Past Family History Mother Family Medical History: Cancer Additional Family Medical History / Comment(s): Mother had lupus and TB Father History Unknown: Yes General Exam Limitations: no limitations General appearance: alert, in no apparent distress Head exam: Present: atraumatic, normocephalic, normal inspection Eye exam: Present: normal appearance, PERRL, EOMI. Absent: scleral icterus, conjunctival injection, periorbital swelling ENT exam: Present: normal exam, mucous membranes moist Neck exam: Present: normal inspection. Absent: tenderness, meningismus, lymphadenopathy Respiratory exam: Present: normal lung sounds bilaterally. Absent: respiratory distress, wheezes, rales, rhonchi, stridor Cardiovascular Exam: Present: regular rate, normal rhythm, normal heart sounds. Absent: systolic murmur, diastolic murmur, rubs, gallop, clicks GI/Abdominal exam: Present: soft, normal bowel sounds. Absent: distended, tenderness, guarding, rebound, rigid Extremities exam: Present: normal inspection, full ROM, normal capillary refill, other (5 out of 5 muscle strength in the bilateral lower extremities). Absent: tenderness, pedal edema, joint swelling, calf tenderness Back exam: Present: muscle spasm, paraspinal tenderness Neurological exam: Present: alert, oriented X3, CN II-XII intact Psychiatric exam: Present: normal affect, normal mood Skin exam: Present: warm, dry, intact, normal color. Absent: rash Course Vital Signs 03/31/24 03/31/24 03/31/24 07:34 07:58 09:06 Temperature 98.1 F 98 F Pulse Rate 86 85 76 Respiratory 22 20 20 Rate Blood Pressure 185/101 184/101 157/100 O2 Sat by Pulse 97 99 97 Oximetry 03/31/24 11:00 Temperature 98.2 F Pulse Rate 73 Respiratory 16 Rate Blood Pressure 170/82 O2 Sat by Pulse 96 Oximetry Medical Decision Making - Medical Decision Making Was pt. sent in by a medical professional or institution (, PA, GRAIN OILSEED OR PASTURE GROWER, urgent care, hospital, or prison...) When possible be specific @ -No Did you speak to anyone other than the patient for history (EMS, parent, family, police, friend...)? What history was obtained from this source @ -I spoke with EMS and family for history Did you review nursing and triage notes (agree or disagree)? Why? @ -I reviewed and agree with nursing and triage notes Were old charts reviewed (outside hosp., previous admission, EMS record, old EKG, old radiological studies, urgent care reports/EKG's, prison records)? Report findings @ -No old charts were reviewed Differential Diagnosis (chest pain, altered mental status, abdominal pain women, abdominal pain men, vaginal bleeding, weakness, fever, dyspnea, syncope, headache, dizziness, GI bleed, back pain, seizure, CVA, palpatations, mental health, musculoskeletal)? @ -Differential Back Pain: Strain, zoster, cauda equina syndrome, epidural abscess, vertebral osteomyelitis, discitis, fracture, subluxation, disc herniation, DJD, spinal stenosis, dissection, AAA, pancreatitis, peptic ulcer disease, pyelonephritis, kidney stone, this is not meant to be an all-inclusive list. EKG interpreted by me (3pts min.). @ -Not done X-rays interpreted by me (1pt min.). @ -Yes and demonstrates degenerative disc disease CT interpreted by me (1pt min.). @ -None done U/S interpreted by me (1pt. min.). @ -None done What testing was considered but not performed or refused? (CT, X-rays, U/S, labs)? Why? @ -None What meds were considered but not given or refused? Why? @ -None Did you discuss the management of the patient with other professionals (professionals i.e. , PA, GRAIN OILSEED OR PASTURE GROWER, lab, RT, psych nurse, social media content manager, hot dipper, teacher, credit risk officer, briefcase sewer)? Give summary @ -Spoke with the briefcase sewer who is able to get the patient a walker for at home Was smoking cessation discussed for >3mins.? @ -No Was critical care preformed (if so, how long)? @ -No Were there social determinants of health that impacted care today? How? (Homelessness, low income, unemployed, alcoholism, drug addiction, transportation, low edu. Level, literacy, decrease access to med. care, long term, rehab)? @ -No Was there de-escalation of care discussed even if they declined (Discuss DNR or withdrawal of care, Hospice)? DNR status @ -No What co-morbidities impacted this encounter? (DM, HTN, Smoking, COPD, CAD, Cancer, CVA, ARF, Chemo, Hep., AIDS, mental health diagnosis, sleep apnea, morbid obesity)? @ -Chronic back pain Was patient admitted / discharged? Hospital course, mention meds given and route, prescriptions, significant lab abnormalities, going to OR and other pertinent info. @ -Upon arrival patient seen and evaluated in room 30. Thorough history and physical exam was performed. Patient given several pain medications as well as muscle relaxers. I did perform an x-ray. Patient is able to get up and ambulate to the bathroom. Case management to see the patient and schedule an appointment for her. Patient will require a walker for ambulatory assistance at home and therefore this will be ordered. Patient will be discharged home on pain medications as well as muscle relaxers. Instructed to take these at home at least 2 hours apart. She will also be placed on a steroid course. She will follow-up with her primary care doctor. She is given information for Ortho excellence specialist in [facility]. Patient discharged in stable condition Undiagnosed new problem with uncertain prognosis? @ -No Drug Therapy requiring intensive monitoring for toxicity (Heparin, Nitro, Insulin, Cardizem)? @ -No Were any procedures done? @ -No Diagnosis/symptom? @ -Acute exacerbation of chronic back pain Acute, or Chronic, or Acute on Chronic? @ -Acute on chronic Uncomplicated (without systemic symptoms) or Complicated (systemic symptoms)? @ -Complicated Side effects of treatment? @ -No Exacerbation, Progression, or Severe Exacerbation? @ -yes Poses a threat to life or bodily function? How? (Chest pain, USA, PA, pneumonia, PE, COPD, DKA, ARF, appy, cholecystitis, CVA, Diverticulitis, Homicidal, Suicidal, threat to staff... and all critical care pts) @ -No Disposition Clinical Impression: Lumbar back pain, Low back strain Disposition: HOME SELF-CARE Condition: Stable Instructions (If sedation given, give patient instructions): Acute Low Back Pain (ED) Additional Instructions: Please take the prescribed medications as they are directed. Space the muscle relaxer and pain pill out by 2 hours. Follow-up with your primary care doctor. I recommend that you make an appointment with a back doctor as this is likely to become a chronic issue. Return for any new or worsening symptoms Prescriptions: predniSONE [Deltasone] 20 mg PO BID #10 tab Cyclobenzaprine [Flexeril] 10 mg PO TID #20 tab HYDROcodone/APAP 10-325MG [Scott 10-325] 1 tab PO Q4HR PRN #18 tab PRN Reason: pain Is patient prescribed a controlled substance at d/c from ED?: Yes When asked, does pt state using other controlled substances?: No If prescribed controlled substance>3 days was MAPS reviewed?: Yes If opioid is for acute pain is fill amount 7 days or less?: Yes Referrals: Zunilda Vasquez DO [Doctor of Osteopathic Medicine] - 1-2 days [facility] [employer] [NON-STAFF] - (Supplier of walker ) Marium Mazariegos MD [Primary Care Provider] - 04/06/24 10:45 am Cy Bynum DO [Doctor of Osteopathic Medicine] - 1-2 days Time of Disposition: 11:17
[2024-03-31 12:09] VITALS: BP 158/90; PULSE 70; TEMP 98.1
== END 2024-03-31 12:09 | disposition home or self-care (01) ==
LOC: EC 07:26
DX: S39.012A Strain of muscle, fascia and tendon of lower back, initial encounter (principal); M51.36 Other intervertebral disc degeneration, lumbar region; F17.200 Nicotine dependence, unspecified, uncomplicated; Z88.6 Allergy status to analgesic agent; Z91.041 Radiographic dye allergy status; Z88.8 Allergy status to other drugs, medicaments and biological substances; Z91.048 Other nonmedicinal substance allergy status; X58.XXXA Exposure to other specified factors, initial encounter
CPT/HCPCS: 72110; 99284; 96372 ×3; J2270; J2360; J1170; J7512

== ENCOUNTER 2024-06-14 15:49 | Observation (INO) | payer MEDICARE ==
--- NOTE | 2024-06-14 16:47 | ED ---
Recheck HPI - General Source: patient, RN notes reviewed Mode of arrival: ambulatory Limitations: no limitations <Melly Palmer - Last Filed: 06/14/24 19:13> <Panfilo Reyes - Last Filed: 06/15/24 07:32> - General Chief Complaint: Recheck/Abnormal Lab/Rx Stated Complaint: Weakness Time Seen by Provider: 06/14/24 16:41 - History of Present Illness Initial Comments: 69-year-old female presented to the ER with a chief complaint of neck pain and chest discomfort. Patient states for the past 3 days she has been feeling a "thumping/stabbing" chest discomfort. Patient has a past medical history significant of multiple stents, hypertension, hyperlipidemia. Patient states that she also has degenerative disc disease and is following up with pain management. She has been off of gabapentin for approximately 3 weeks per PCP. She was seen by pain management today and prescribed Roosevelt. She mentions her blood pressure at clinic was low blood pressure of 70/40. She went to the pharmacy and was unable to obtain as a pharmacy was out of medications. Patient presents to the ER today for evaluation of neck pain. Upon discussion with patient she states that she has been having chest discomfort. Patient takes a isosorbide mononitrate 30 mg ER for her hypertension. Patient did take medication this morning. Patient reporting her back pain a 10 out of 10 distracting her from chest discomfort. Patient does report feeling mind to sleep today as if she is going to "pass out". Denies any headache, cough or c ongestion, shortness of breath, abdominal pain, constipation/diarrhea, urinary complaints or peripheral edema. (Melly Palmer) - Related Data Home Medications Medication Instructions Recorded Confirmed Omeprazole 40 mg PO DAILY 10/17/22 06/14/24 Famotidine [Pepcid] 20 mg PO HS PRN 12/23/22 06/14/24 Sertraline [Zoloft] 150 mg PO DAILY 12/23/22 06/14/24 lisinopriL [Zestril] 5 mg PO DAILY 02/03/24 06/14/24 Cyclobenzaprine [Flexeril] 5 mg PO TID PRN 06/14/24 06/14/24 Dicyclomine [Bentyl] 10 mg PO AC-TID 06/14/24 06/14/24 HYDROcodone/APAP 5-325MG [[place] 1 tab PO DIRECTED PRN 06/14/24 06/14/24 5-325] Isosorbide Mononitrate ER [Imdur] 30 mg PO DAILY 06/14/24 06/14/24 Previous Rx's Medication Instructions Recorded traZODone HCL 150 mg PO HS 30 Days tablet 04/17/22 Allergies Allergy/AdvReac Type Severity Reaction Status Date / Time ibuprofen AdvReac NIGHTMARES Verified 06/14/24 18:00 Iodinated Contrast Media AdvReac Nausea & Verified 06/14/24 18:00 [Iodinated Contrast Media - Vomiting IV Dye] povidone-iodine AdvReac Nausea & Verified 06/14/24 18:00 [From Betadine] Vomiting soap [From Betadine] AdvReac Nausea & Verified 06/14/24 18:00 Vomiting Review of Systems ROS Other: All systems not noted in ROS Statement are negative. <Melly Palmer - Last Filed: 06/14/24 19:13> ROS Other: All systems not noted in ROS Statement are negative. <Panfilo Reyes - Last Filed: 06/15/24 07:32> ROS Statement: Those systems with pertinent positive or pertinent negative responses have been documented in the HPI. Past Medical History Past Medical History: Coronary Artery Disease (CAD), Chest Pain / Angina, COPD, Fibromyalgia, Hyperlipidemia, Hypertension, Osteoarthritis (OA) Additional Past Medical History / Comment(s): Chronic back pain, DDD, bulging discs, scoliosis, osteoporosis., PAST HX JAW FX RT-CAUSES HEADACHES-TAKES TEGRE GERRY, abdominal aneurysm History of Any Multi-Drug Resistant Organisms: None Reported Past Surgical History: Breast Surgery, Heart Catheterization With Stent, Hysterectomy, Orthopedic Surgery Additional Past Surgical History / Comment(s): Back injections, L patellar surgery, R carpal tunnel release, L breast benign biopsy, sinus surgery, EGD Past Anesthesia/Blood Transfusion Reactions: No Reported Reaction Date of Last Stent Placement:: 05/10/20 Past Psychological History: Anxiety, Depression Smoking Status: Current every day smoker Past Alcohol Use History: None Reported Past Drug Use History: None Reported - Past Family History Mother Family Medical History: Cancer Additional Family Medical History / Comment(s): Mother had lupus and TB Father History Unknown: Yes <Melly Palmer - Last Filed: 06/14/24 19:13> General Exam Limitations: no limitations General appearance: alert, in no apparent distress Respiratory exam: Present: normal lung sounds bilaterally. Absent: respiratory distress, wheezes, rales, rhonchi, stridor Cardiovascular Exam: Present: regular rate, normal rhythm, normal heart sounds. Absent: systolic murmur, diastolic murmur, rubs, gallop, clicks Extremities exam: Present: normal inspection, full ROM, normal capillary refill. Absent: tenderness, pedal edema, joint swelling, calf tenderness Neurological exam: Present: alert, oriented X3, CN II-XII intact Skin exam: Present: warm, dry, intact, normal color. Absent: rash <Melly Palmer - Last Filed: 06/14/24 19:13> Course <Melly Palmer - Last Filed: 06/14/24 19:13> Vital Signs 06/14/24 06/14/24 06/14/24 15:49 15:57 17:00 Temperature 97.6 F Pulse Rate 84 92 98 Pulse Rate [ Pulse Oximetery ] Respiratory 18 14 16 Rate Blood Pressure 210/120 141/96 168/69 Blood Pressure [Left Arm Sitting] O2 Sat by Pulse 98 98 92 L Oximetry 06/14/24 06/14/24 06/15/24 17:30 23:14 00:00 Temperature 97.9 F Pulse Rate 86 Pulse Rate [ 97 90 Pulse Oximetery ] Respiratory 16 18 Rate Blood Pressure 148/88 Blood Pressure 184/96 [Left Arm Sitting] O2 Sat by Pulse 94 L 96 Oximetry - Reevaluation(s) Reevaluation #1: 06/14/24 17:55 Patient reevaluated. Patient with signs of acute distress talking on the phone upon reevaluation. Vitals within normal limits. Patient agreeable for admission. 06/14/24 18:46 Case discussed with [facility], Dr. Bryant for admission. (Melly Palmer) Medical Decision Making - Lab Data Result diagrams: 06/14/24 16:11 06/14/24 16:11 - EKG Data -: EKG Interpreted by Tn - Radiology Data Radiology results: report reviewed, image reviewed <Melly Palmer - Last Filed: 06/14/24 19:13> - Lab Data Result diagrams: 06/14/24 16:11 06/14/24 16:11 <Panfilo Reyes - Last Filed: 06/15/24 07:32> - Medical Decision Making Was pt. sent in by a medical professional or institution (, PA, COLD ROLL CATCHER, urgent care, hospital, or fpc...) When possible be specific @ -No Did you speak to anyone other than the patient for history (EMS, parent, family, police, friend...)? What history was obtained from this source @ -No Did you review nursing and triage notes (agree or disagree)? Why? @ -I reviewed and agree with nursing and triage notes Were old charts reviewed (outside hosp., previous admission, EMS record, old EK G, old radiological studies, urgent care reports/EKG's, fpc records)? Report findings @ -No old charts were reviewed Differential Diagnosis (chest pain, altered mental status, abdominal pain women, abdominal pain men, vaginal bleeding, weakness, fever, dyspnea, syncope, headache, dizziness, GI bleed, back pain, seizure, CVA, palpatations, mental health, musculoskeletal)? @ -Differential Chest Pain: Stable Angina, Unstable Angina, STEMI, NSTEMI Aortic Dissection, Pneumothorax, Musculoskeletal, Esophageal Spasm GERD, Cholecystitis, Pancreatitis, Zoster, this is not meant to be an all-inclusive list. EKG interpreted by me (3pts min.). @ -As above X-rays interpreted by me (1pt min.). @ -Chest x-ray interpreted by me negative for acute cardiopulmonary process. COPD noted. CT interpreted by me (1pt min.). @ -None done U/S interpreted by me (1pt. min.). @ -None done What testing was considered but not performed or refused? (CT, X-rays, U/S, labs)? Why? @ -None What meds were considered but not given or refused? Why? @ -None Did you discuss the management of the patient with other professionals (professionals i.e. , [place], COLD ROLL CATCHER, lab, RT, psych nurse, oncology social work, shell press operator, teacher, first officer and flight instructor, residential case manager)? Give summary @ -Yes, [facility]. Was smoking cessation discussed for >3mins.? @ -No Was critical care preformed (if so, how long)? @ -Yes, 35 minutes Were there social determinants of health that impacted care today? How? (Homelessness, low income, unemployed, alcoholism, drug addiction, transportation, low edu. Level, literacy, decrease access to med. care, nursing home, rehab)? @ -No Was there de-escalation of care discussed even if they declined (Discuss DNR or withdrawal of care, Hospice)? DNR status @ -No What co-morbidities impacted this encounter? (DM, HTN, Smoking, COPD, CAD, Cancer, CVA, ARF, Chemo, Hep., AIDS, mental health diagnosis, sleep apnea, morbid obesity)? @ -Hypertension, coronary artery disease Was patient admitted / discharged? Hospital course, mention meds given and route, prescriptions, significant lab abnormalities, going to OR and other pertinent info. @ -Admitted. 69-year-old female presented the ER with a chief complaint of neck pain and chest discomfort. Patient initially reported to the ER for control of neck pain as she was seen by pain management today and unable to fill prescription of Roosevelt. Upon discussion with patient she started to describe chest discomfort for the past 3 days. Cardiac workup initiated at that time. Vitals upon my examination remarkable for temperature 97.6, heart rate 92, respiratory rate 14, blood pressure 141/96, oxygen saturation 98% on room air. Patient in no signs of acute distress and nontoxic-appearing. Exam benign. La boratory studies obtained showing ARTHUR (BUN 22, creatinine 1.11 with a GFR of 51). Sodium 141, potassium 4.7, chloride 112, carbon dioxide 17. Troponin elevated at 0.051. EKG showing sinus tachycardia with no acute evidence of infarct or ischemia. Chest x-ray and negative for acute process. Patient given 0.5 IV Dilaudid for pain control, with improvement. Admission considered for NSTEMI and cardiac consultation. Case discussed with [facility], Dr. Bryant for admission. Heparin ordered. Cardiology on consult. Upon reevaluation, patient resting comfortably on stretcher talking on the phone with a family member. Results discussed with patient, all questions answered. Patient is agreeable for admission. Patient made in stable condition for further evaluation and treatment. Case discussed with ED attending, Dr. Reyes. Undiagnosed new problem with uncertain prognosis? @ -No Drug Therapy requiring intensive monitoring for toxicity (Heparin, Nitro, Insulin, Cardizem)? @ -Yes, heparin Were any procedures done? @ -No Diagnosis/symptom? @ -NSTEMI/ ARTHUR/ neck pain Acute, or Chronic, or Acute on Chronic? @ -Acute Uncomplicated (without systemic symptoms) or Complicated (systemic symptoms)? @ -Complicated Side effects of treatment? @ -No Exacerbation, Progression, or Severe Exacerbation? @ -No Poses a threat to life or bodily function? How? (Chest pain, USA, OR, pneumonia, PE, COPD, DKA, ARF, appy, cholecystitis, CVA, Diverticulitis, Homicidal, Suicidal, threat to staff... and all critical care pts) @ -Yes, NSTEMI can lead to myocardial infarction causing lethal cardiac arrhythmias. (Melly Palmer) - Lab Data Lab Results 06/14/24 06/14/24 06/14/24 Range/Units 16:11 16:11 16:11 WBC 8.4 (3.8-10.6) k/uL RBC 4.31 (3.80-5.40) m/uL Hgb 14.0 (11.4-16.0) gm/dL Hct 44.4 (34.0-46.0) % MCV 102.9 H (80.0-100.0) fL MCH 32.5 (25.0-35.0) pg MCHC 31.6 (31.0-37.0) g/dL RDW 14.0 (11.5-15.5) % Plt Count 297 (150-450) k/uL MPV 7.6 Neutrophils % 54 % Lymphocytes % 37 % Monocytes % 4 % Eosinophils % 2 % Basophils % 1 % Neutrophils # 4.5 (1.3-7.7) k/uL Lymphocytes # 3.1 (1.0-4.8) k/uL Monocytes # 0.3 (0-1.0) k/uL Eosinophils # 0.2 (0-0.7) k/uL Basophils # 0.1 (0-0.2) k/uL Hypochromasia Slight Macrocytosis Slight PT 10.9 (10.0-12.5) sec INR 1.0 (<1.2) APTT 25.5 (22.0-30.0) sec Sodium 141 (137-145) mmol/L Potassium 4.7 (3.5-5.1) mmol/L Chloride 112 H (98-107) mmol/L Carbon Dioxide 17 L (22-30) mmol/L Anion Gap 12 mmol/L BUN 22 H (7-17) mg/dL Creatinine 1.11 H (0.52-1.04) mg/dL Est GFR (CKD-EPI)AfAm 59 (>60 ml/min/1.73 sqM) Est GFR (CKD-EPI)NonAf 51 (>60 ml/min/1.73 sqM) Glucose 101 H (74-99) mg/dL Calcium 10.1 (8.4-10.2) mg/dL Magnesium 1.8 (1.6-2.3) mg/dL Total Bilirubin 0.6 (0.2-1.3) mg/dL AST 27 (14-36) U/L ALT 8 (4-34) U/L Alkaline Phosphatase 82 (38-126) U/L Troponin I (0.000-0.034) ng/mL Total Protein 7.6 (6.3-8.2) g/dL Albumin 4.9 (3.5-5.0) g/dL 06/14/24 Range/Units 16:11 WBC (3.8-10.6) k/uL RBC (3.80-5.40) m/uL Hgb (11.4-16.0) gm/dL Hct (34.0-46.0) % MCV (80.0-100.0) fL MCH (25.0-35.0) pg MCHC (31.0-37.0) g/dL RDW (11.5-15.5) % Plt Count (150-450) k/uL MPV Neutrophils % % Lymphocytes % % Monocytes % % Eosinophils % % Basophils % % Neutrophils # (1.3-7.7) k/uL Lymphocytes # (1.0-4.8) k/uL Monocytes # (0-1.0) k/uL Eosinophils # (0-0.7) k/uL Basophils # (0-0.2) k/uL Hypochromasia Macrocytosis PT (10.0-12.5) sec INR (<1.2) APTT (22.0-30.0) sec Sodium (137-145) mmol/L Potassium (3.5-5.1) mmol/L Chloride (98-107) mmol/L Carbon Dioxide (22-30) mmol/L Anion Gap mmol/L BUN (7-17) mg/dL Creatinine (0.52-1.04) mg/dL Est GFR (CKD-EPI)AfAm (>60 ml/min/1.73 sqM) Est GFR (CKD-EPI)NonAf (>60 ml/min/1.73 sqM) Glucose (74-99) mg/dL Calcium (8.4-10.2) mg/dL Magnesium (1.6-2.3) mg/dL Total Bilirubin (0.2-1.3) mg/dL AST (14-36) U/L ALT (4-34) U/L Alkaline Phosphatase (38-126) U/L Troponin I 0.051 H* (0.000-0.034) ng/mL Total Protein (6.3-8.2) g/dL Albumin (3.5-5.0) g/dL - EKG Data EKG Comments: EKG taken at 16: 06 showing a sinus tachycardia. No ST segment elevations or depressions. No T wave abnormalities. Normal axis. Ventricular rate 103, AZ interval 130, QRS duration 90, QT/QTc 322/382. (Melly Palmer) Disposition Time of Disposition: 17:56 <Melly Palmer - Last Filed: 06/14/24 19:13> <Panfilo Reyes - Last Filed: 06/15/24 07:32> Clinical Impression: NSTEMI (non-ST elevated myocardial infarction), ARTHUR (acute kidney injury) Disposition: ADMITTED IP TO THIS HOSP Condition: Stable
[2024-06-14 16:54] LABS: Basophils # (A) 0.1 k/uL (0-0.2); Basophils % (A) 1 %; Eosinophils # (A) 0.2 k/uL (0-0.7); Eosinophils % (A) 2 %; HCT 44.4 % (34.0-46.0); Hypochromasia Slight; Lymphocytes # (A) 3.1 k/uL (1.0-4.8); Lymphocytes % (A) 37 %; MCH 32.5 pg (25.0-35.0); MCHC 31.6 g/dL (31.0-37.0); MCV 102.9 fL (80.0-100.0); Macrocytosis Slight; Mean Platelet Volume 7.6; Monocytes # (A) 0.3 k/uL (0-1.0); Monocytes % (A) 4 %; Neutrophils # (A) 4.5 k/uL (1.3-7.7); Neutrophils % (A) 54 %; Platelet Count 297 k/uL (150-450); RBC 4.31 m/uL (3.80-5.40); WBC 8.4 k/uL (3.8-10.6)
[2024-06-14 17:19] LABS: Partial Thromboplastin Time 25.5 sec (22.0-30.0); Prothrombin Time 10.9 sec (10.0-12.5)
--- NOTE | 2024-06-14 17:19 | XR ---
EXAMINATION TYPE: XR chest 2V DATE OF EXAM: 06/14/2024 COMPARISON: 02/03/2024 INDICATION: Chest pain TECHNIQUE: Single frontal view of the chest is obtained. FINDINGS: The heart size is normal. The pulmonary vasculature is normal. The lungs are clear. There is hyperinflation and flattening of the diaphragms compatible with COPD. IMPRESSION: 1. No acute pulmonary process. 2. COPD [facility], , 06/14/2024 5:17 PM
[2024-06-14 17:21] LABS: ALT 8 U/L (4-34); African American GFR (CKD) 59 (>60 ml/min/1.73 sqM); Albumin 4.9 g/dL (3.5-5.0); Anion Gap 12 mmol/L; Blood Urea Nitrogen 22 mg/dL (7-17); Calcium 10.1 mg/dL (8.4-10.2); Carbon Dioxide 17 mmol/L (22-30); Chloride 112 mmol/L (98-107); Glucose 101 mg/dL (74-99); Non-African American GFR(CKD) 51 (>60 ml/min/1.73 sqM); Sodium 141 mmol/L (137-145); Total Bilirubin 0.6 mg/dL (0.2-1.3); Total Protein 7.6 g/dL (6.3-8.2)
[2024-06-14 17:24] LABS: Potassium 4.7 mmol/L (3.5-5.1)
[2024-06-14 17:25] LABS: AST 27 U/L (14-36); Alkaline Phosphatase 82 U/L (38-126); Magnesium 1.8 mg/dL (1.6-2.3)
[2024-06-14] MEDS: HYDROmorphone 0.5 MG/0.5 ML SYRINGE IVP STA (17:33)
[2024-06-14] MEDS ORDERED: NALOXONE 0.4 MG/ML 1 ML VIAL IV PRN (18:44)
[2024-06-14] MEDS ORDERED: ONDANSETRON 4 MG/2 ML VIAL IVP PRN (18:44)
[2024-06-14] MEDS ORDERED: HEPARIN SODIUM 1,000 UN/ML (10ML VL) IV PRN (18:44)
[2024-06-14] MEDS: HEPARIN SOD,PORK IN 0.45% NACL 25,000 UNIT in 0.45% NACL 1 250ML.BAG IV SCH (19:37)
[2024-06-14] MEDS: HEPARIN SODIUM 1,000 UN/ML (10ML VL) IV ONE (19:38)
[2024-06-14] MEDS: SODIUM CHLORIDE 0.9% 1,000 ML IV SCH (20:35)
[2024-06-14] MEDS: hydrALAZINE HCL 20 MG/ML 1 ML VIAL IVP STA (20:35)
[2024-06-14] MEDS: HYDROmorphone 0.5 MG/0.5 ML SYRINGE IVP PRN (20:37)
[2024-06-14] MEDS: FAMOTIDINE 20 MG TAB PO PRN (23:07)
[2024-06-14] MEDS: CYCLOBENZAPRINE 5 MG TAB PO PRN (23:07)
[2024-06-14] MEDS: traZODone HCL 50 MG TAB PO SCH (23:07)
[2024-06-15] MEDS: ACETAMINOPHEN TAB 325 MG TAB PO PRN (00:51)
[2024-06-15] MEDS: MELATONIN 5 MG TABLET PO PRN (01:24)
[2024-06-15] MEDS: lisinopriL 5 MG TAB PO STA (01:24)
[2024-06-15 07:48] LABS: Basophils % (A) 1 %; Eosinophils # (A) 0.2 k/uL (0-0.7); Eosinophils % (A) 3 %; HCT 40.9 % (34.0-46.0); HGB 12.7 gm/dL (11.4-16.0); Hypochromasia Slight; Lymphocytes # (A) 2.9 k/uL (1.0-4.8); Lymphocytes % (A) 49 %; MCH 32.2 pg (25.0-35.0); MCHC 31.2 g/dL (31.0-37.0); MCV 103.5 fL (80.0-100.0); Macrocytosis Slight; Mean Platelet Volume 7.2; Monocytes # (A) 0.3 k/uL (0-1.0); Monocytes % (A) 4 %; Neutrophils # (A) 2.4 k/uL (1.3-7.7); Neutrophils % (A) 40 %; Platelet Count 267 k/uL (150-450); RBC 3.95 m/uL (3.80-5.40); RDW 13.8 % (11.5-15.5); WBC 5.9 k/uL (3.8-10.6)
[2024-06-15] MEDS: SERTRALINE 50 MG TAB PO SCH (08:05)
[2024-06-15] MEDS: ISOSORBIDE MONONITRATE ER 30 MG TAB.ER.24H PO SCH (08:05)
[2024-06-15] MEDS: PANTOPRAZOLE 40 MG TABLET PO SCH (08:05)
[2024-06-15 08:18] LABS: Prothrombin Time 11.2 sec (10.0-12.5)
[2024-06-15] MEDS: lisinopriL 5 MG TAB PO SCH (10:26)
[2024-06-15] MEDS: HYDROcodone/APAP 5-325MG 1 EACH TAB PO PRN (10:28)
[2024-06-15] MEDS ORDERED: NITROGLYCERIN SL TABS 0.4 MG TAB SUBLINGUAL PRN (10:37)
--- NOTE | 2024-06-15 12:35 | P.HPIM ---
History of Present Illness H&P Date: 06/15/24 History of present illness; patient is a 69-year-old lady with past medical history significant for coronary artery disease status post multiple stents, hypertension, hyperlipidemia who presented to the ER because of chest pain. Patient stated that she was a usual state of health 3 days ago when he started experiencing stabbing intermittent chest pain that was central location, nonradiating, no aggravating or relieving factor associated chest pain. Patient does follow-up with pain clinic for her back pain. Denies any shortness of breath with no complaint palpitations. Denies any orthopnea or PND. Patient is complaining of increased lethargy and states that she was off her medications for the last few days. Because of chest pain, patient presented to the ER Initial lab work done in the ER showed WBC 8.4, hemoglobin 14, platelet count 297, sodium 141, potassium 4.7, chloride 112, carbon/17, BUN 20, creatinine 1.11 troponin 0.051 EKG done in the ER showed heart rate of 83, no ST segment elevation or depression seen, no T-wave inversions seen. Chest x-ray done in the ER showed no acute cardiopulmonary process, showed COPD Patient admitted to internal medicine service REVIEW OF SYSTEMS: CONSTITUTIONAL: No fever, no malaise, no fatigue. HEENT: No recent visual problems or hearing problems. Denied any sore throat. CARDIOVASCULAR: As mentioned above PULMONARY: As mentioned above GASTROINTESTINAL: No diarrhea, no nausea, no vomiting, no abdominal pain. NEUROLOGICAL: No headaches, no weakness, no numbness. HEMATOLOGICAL: Denies any bleeding or petechiae. GENITOURINARY: Denies any burning micturition, frequency, or urgency. MUSCULOSKELETAL/RHEUMATOLOGICAL: Denies any joint pain, swelling, or any muscle pain. ENDOCRINE: Denies any polyuria or polydipsia. The rest of the 14-point review of systems is negative. PHYSICAL EXAMINATION: GENERAL: The patient is alert and oriented x3, not in any acute distress. Well developed, well nourished. HEENT: Pupils are round and equally reacting to light. EOMI. No scleral icterus. No conjunctival pallor. Normocephalic, atraumatic. No pharyngeal erythema. No thyromegaly. CARDIOVASCULAR: S1 and S2 present. No murmurs, rubs, or gallops. PULMONARY: Chest is clear to auscultation, no wheezing or crackles. ABDOMEN: Soft, nontender, nondistended, normoactive bowel sounds. No palpable organomegaly. MUSCULOSKELETAL: No joint swelling or deformity. EXTREMITIES: No cyanosis, clubbing, or pedal edema. NEUROLOGICAL: Gross neurological examination did not reveal any focal deficits. SKIN: No rashes. Assessment and plan Chest pain, rule out acute coronary syndrome Hypertension Hyperlipidemia History of coronary artery disease Monitor vital signs Monitor CBC Monitor CMP Continue telemetry monitoring Troponin Ordered D-dimer Ordered 2D echo Resume home med Consult cardiology Labs and medication were reviewed.. Continue same treatment. Continue with symptomatic treatment. Resume home medication. Monitor labs and vitals. DVT and GI prophylaxis. Further recommendations as per clinical course of the patient Dictation was produced using [employer] dictation software. please excuse any grammatical, word or spelling errors. Past Medical History Past Medical History: Coronary Artery Disease (CAD), Chest Pain / Angina, COPD, Fibromyalgia, Hyperlipidemia, Hypertension, Osteoarthritis (OA) Additional Past Medical History / Comment(s): Chronic back pain, DDD, bulging discs, scoliosis, osteoporosis., PAST HX JAW FX RT-CAUSES HEADACHES-TAKES TEGR ETOL, abdominal aneurysm History of Any Multi-Drug Resistant Organisms: None Reported Past Surgical History: Breast Surgery, Heart Catheterization With Stent, Hysterectomy, Orthopedic Surgery Additional Past Surgical History / Comment(s): Back injections, L patellar surgery, R carpal tunnel release, L breast benign biopsy, sinus surgery, EGD Past Anesthesia/Blood Transfusion Reactions: No Reported Reaction Date of Last Stent Placement:: 05/10/20 Past Psychological History: Anxiety, Depression Additional Psychological History / Comment(s): Pt resides with her daughter. She uses no assistive device. She does not drive, her daughters or public transportation take her to appointments. She manages her own medication. Smoking Status: Current every day smoker Past Alcohol Use History: None Reported Additional Past Alcohol Use History / Comment(s): Pt started smoking in 1967 and is a 1ppd smoker. Past Drug Use History: None Reported Additional Drug Use History / Comment(s): no additional drug use stated by patient at this time - Past Family History Mother Family Medical History: Cancer Additional Family Medical History / Comment(s): Mother had lupus and TB Father History Unknown: Yes Medications and Allergies Home Medications Medication Instructions Recorded Confirmed Type traZODone HCL 150 mg PO HS 30 Days tablet 04/17/22 06/14/24 Rx Omeprazole 40 mg PO DAILY 10/17/22 06/14/24 History Famotidine [Pepcid] 20 mg PO HS PRN 12/23/22 06/14/24 History Sertraline [Zoloft] 150 mg PO DAILY 12/23/22 06/14/24 History lisinopriL [Zestril] 5 mg PO DAILY 02/03/24 06/14/24 History Cyclobenzaprine [Flexeril] 5 mg PO TID PRN 06/14/24 06/14/24 History Dicyclomine [Bentyl] 10 mg PO AC-TID 06/14/24 06/14/24 History HYDROcodone/APAP 5-325MG [[place] 1 tab PO DIRECTED PRN 06/14/24 06/14/24 History 5-325] Isosorbide Mononitrate ER [Imdur] 30 mg PO DAILY 06/14/24 06/14/24 History Allergies Allergy/AdvReac Type Severity Reaction Status Date / Time ibuprofen AdvReac NIGHTMARES Verified 06/14/24 18:00 Iodinated Contrast Media AdvReac Nausea & Verified 06/14/24 18:00 [Iodinated Contrast Media - Vomiting IV Dye] povidone-iodine AdvReac Nausea & Verified 06/14/24 18:00 [From Betadine] Vomiting soap [From Betadine] AdvReac Nausea & Verified 06/14/24 18:00 Vomiting Physical Exam Vitals: Vital Signs Temp Pulse Pulse Resp BP BP BP 06/15/24 07:58 80 16 99/57 100/59 06/15/24 05:00 98.3 F 86 16 108/68 06/15/24 02:00 80 18 06/15/24 00:00 97.9 F 90 18 184/96 06/14/24 23:14 86 16 148/88 06/14/24 17:30 97 06/14/24 17:00 98 16 168/69 06/14/24 15:57 92 14 141/96 06/14/24 15:49 97.6 F 84 18 210/120 Pulse Ox 06/15/24 07:58 96 06/15/24 05:00 96 06/15/24 02:00 06/15/24 00:00 96 06/14/24 23:14 94 L 06/14/24 17:30 06/14/24 17:00 92 L 06/14/24 15:57 98 06/14/24 15:49 98 Intake and Output 06/14/24 06/15/24 06/15/24 22:59 06:59 14:59 Other: Voiding Method Toilet # Voids 2 Weight 36.741 kg 35.6 kg Results CBC & Chem 7: 06/15/24 07:20 06/14/24 16:11 Labs: Abnormal Lab Results - Last 24 Hours (Table) 06/14/24 06/14/24 06/14/24 Range/Units 16:11 16:11 16:11 MCV 102.9 H (80.0-100.0) fL Chloride 112 H (98-107) mmol/L Carbon Dioxide 17 L (22-30) mmol/L BUN 22 H (7-17) mg/dL Creatinine 1.11 H (0.52-1.04) mg/dL Glucose 101 H (74-99) mg/dL Troponin I 0.051 H* (0.000-0.034) ng/mL 06/15/24 Range/Units 07:20 MCV 103.5 H (80.0-100.0) fL Chloride (98-107) mmol/L Carbon Dioxide (22-30) mmol/L BUN (7-17) mg/dL Creatinine (0.52-1.04) mg/dL Glucose (74-99) mg/dL Troponin I (0.000-0.034) ng/mL Thrombosis Risk Factor Assmnt - Choose All That Apply Any of the Below Risk Factors Present?: No Other Risk Factors: Yes Each Risk Factor Represents 2 Points: Age 61-74 years Other congenital or acquired thrombophilia - If yes, enter type in comment: No Thrombosis Risk Factor Assessment Total Risk Factor Score: 2 Thrombosis Risk Factor Assessment Level: Low Risk
[2024-06-15] MEDS: METOPROLOL TARTRATE 50 MG TAB PO SCH (12:58)
[2024-06-15 14:41] VITALS: BMI 14.3
--- NOTE | 2024-06-15 15:49 | P.CRDCN ---
History of Present Illness Consult date: 06/15/24 Reason for Consult (text): NSTEMI History of present illness: Patient was seen with the resident and I agree with the assessment and the plan. HISTORY OF PRESENT ILLNESS: This is a 69-year-old female with past medical history significant for CAD, known chronic total occlusion of the RCA, prior stenting of LCx, mild cardiomyopathy, hypertension, dyslipidemia, current smoker. Patient follows in the office with Dr. Alex. We have been asked to see the patient in consultation for possible NSTEMI. Patient was examined at the bedside.Patient stated that she was a usual state of health 3 days ago when he started experiencing stabbing intermittent chest pain that was centrally location, nonradiating, no aggravating or relieving factor associated chest pain. Patient does follow-up with pain clinic for her back pain. Denies any shortness of breath with no complaint palpitations. Denies any orthopnea or PND. DIAGNOSTICS: - EKG done in the ER showed heart rate of 83, no ST segment elevation or depression seen, no T-wave inversions seen. - Chest xray shows no acute process, COPD changes notably hyperinflation and flattening of the diaphragms - Laboratory data: MCV 103.5. D-dimer 1.96. Chloride 112. Bicarb 17. BUN 22. Creatinine 1.11. GFR 51. Glucose 101. Troponin 0.051, 0.012 - Current home cardiac medications include Imdur 30 mg daily, lisinopril 5 mg daily Most recent echocardiogram from January 2024 showed EF 45 to 50%, mild MR, mild TR, no pericardial effusion REVIEW OF SYSTEMS: As stated in HPI above. PHYSICAL EXAM: VITAL SIGNS: Reviewed. GENERAL: Well-developed in no acute distress. HEENT: Head is normocephalic. Pupils are equal, round. Sclerae anicteric. Mucous membranes of the mouth are moist. Neck supple. No JVD or thyromegaly LUNGS: Respirations even and unlabored. Some crackles bilaterally. Slightly diminished breath sounds bilaterally. HEART: Distant heart sounds. Regular rate and rhythm. S1 and S2 heard. No murmurs rubs or gallops. ABDOMEN: Soft. Nontender to palpation. EXTREMITIES: Normal range of motion. No clubbing or cyanosis. Peripheral pulses intact. No lower extremity edema NEUROLOGIC: Awake and alert. Oriented x 3. 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 Past Medical History Past Medical History: Coronary Artery Disease (CAD), Chest Pain / Angina, COPD, Fibromyalgia, Hyperlipidemia, Hypertension, Osteoarthritis (OA) Additional Past Medical History / Comment(s): Chronic back pain, DDD, bulging discs, scoliosis, osteoporosis., PAST HX JAW FX RT-CAUSES HEADACHES-TAKES TEGRETOL, abdominal aneurysm History of Any Multi-Drug Resistant Organisms: None Reported Past Surgical History: Breast Surgery, Heart Catheterization With Stent, Hysterectomy, Orthopedic Surgery Additional Past Surgical History / Comment(s): Back injections, L patellar surgery, R carpal tunnel release, L breast benign biopsy, sinus surgery, EGD Past Anesthesia/Blood Transfusion Reactions: No Reported Reaction Date of Last Stent Placement:: 05/10/20 Past Psychological History: Anxiety, Depression Additional Psychological History / Comment(s): Pt resides with her daughter. She uses no assistive device. She does not drive, her daughters or public transportation take her to appointments. She manages her own medication. Smoking Status: Current every day smoker Past Alcohol Use History: None Reported Additional Past Alcohol Use History / Comment(s): Pt started smoking in 1967 and is a 1ppd smoker. Past Drug Use History: None Reported Additional Drug Use History / Comment(s): no additional drug use stated by patient at this time - Past Family History Mother Family Medical History: Cancer Additional Family Medical History / Comment(s): Mother had lupus and TB Father History Unknown: Yes Medications and Allergies Home Medications Medication Instructions Recorded Confirmed Type traZODone HCL 150 mg PO HS 30 Days tablet 04/17/22 06/14/24 Rx Omeprazole 40 mg PO DAILY 10/17/22 06/14/24 History Famotidine [Pepcid] 20 mg PO HS PRN 12/23/22 06/14/24 History Sertraline [Zoloft] 150 mg PO DAILY 12/23/22 06/14/24 History lisinopriL [Zestril] 5 mg PO DAILY 02/03/24 06/14/24 History Cyclobenzaprine [Flexeril] 5 mg PO TID PRN 06/14/24 06/14/24 History Dicyclomine [Bentyl] 10 mg PO AC-TID 06/14/24 06/14/24 History HYDROcodone/APAP 5-325MG [[place] 1 tab PO DIRECTED PRN 06/14/24 06/14/24 History 5-325] Isosorbide Mononitrate ER [Imdur] 30 mg PO DAILY 06/14/24 06/14/24 History Allergies Allergy/AdvReac Type Severity Reaction Status Date / Time ibuprofen AdvReac NIGHTMARES Verified 06/14/24 18:00 Iodinated Contrast Media AdvReac Nausea & Verified 06/14/24 18:00 [Iodinated Contrast Media - Vomiting IV Dye] povidone-iodine AdvReac Nausea & Verified 06/14/24 18:00 [From Betadine] Vomiting soap [From Betadine] AdvReac Nausea & Verified 06/14/24 18:00 Vomiting Physical Exam Vitals: Vital Signs Temp Pulse Pulse Resp BP BP BP 06/15/24 11:16 83 16 118/78 06/15/24 07:58 80 16 99/57 100/59 06/15/24 05:00 98.3 F 86 16 108/68 06/15/24 02:00 80 18 06/15/24 00:00 97.9 F 90 18 184/96 06/14/24 23:14 86 16 148/88 06/14/24 17:30 97 06/14/24 17:00 98 16 168/69 06/14/24 15:57 92 14 141/96 06/14/24 15:49 97.6 F 84 18 210/120 Pulse Ox 06/15/24 11:16 96 06/15/24 07:58 96 06/15/24 05:00 96 06/15/24 02:00 06/15/24 00:00 96 06/14/24 23:14 94 L 06/14/24 17:30 06/14/24 17:00 92 L 06/14/24 15:57 98 06/14/24 15:49 98 Intake and Output 06/14/24 06/15/24 06/15/24 22:59 06:59 14:59 Other: Voiding Method Toilet # Voids 2 Weight 36.741 kg 35.6 kg Results 06/15/24 07:20 06/14/24 16:11 Cardiac Enzymes 06/14/24 06/14/24 06/14/24 Range/Units 16:11 16:11 22:49 AST 27 (14-36) U/L Troponin I 0.051 H* 0.012 (0.000-0.034) ng/mL Coagulation 06/14/24 06/15/24 Range/Units 16:11 07:20 PT 10.9 11.2 (10.0-12.5) sec APTT 25.5 (22.0-30.0) sec CBC 06/14/24 06/15/24 Range/Units 16:11 07:20 WBC 8.4 5.9 (3.8-10.6) k/uL RBC 4.31 3.95 (3.80-5.40) m/uL Hgb 14.0 12.7 (11.4-16.0) gm/dL Hct 44.4 40.9 (34.0-46.0) % Plt Count 297 267 (150-450) k/uL Comprehensive Metabolic Panel 06/14/24 Range/Units 16:11 Sodium 141 (137-145) mmol/L Potassium 4.7 (3.5-5.1) mmol/L Chloride 112 H (98-107) mmol/L Carbon Dioxide 17 L (22-30) mmol/L BUN 22 H (7-17) mg/dL Creatinine 1.11 H (0.52-1.04) mg/dL Glucose 101 H (74-99) mg/dL Calcium 10.1 (8.4-10.2) mg/dL AST 27 (14-36) U/L ALT 8 (4-34) U/L Alkaline Phosphatase 82 (38-126) U/L Total Protein 7.6 (6.3-8.2) g/dL Albumin 4.9 (3.5-5.0) g/dL Current Medications Generic Name Dose Route Start Last Admin Trade Name Freq PRN Reason Stop Dose Admin Acetaminophen 650 mg 06/14/24 18:44 06/15/24 06:26 Acetaminophen Tab 325 Mg Tab PO 650 mg Q6HR PRN Administration Mild Pain or Fever > 100.5 Hydrocodone Bitart/Acetaminophen 1 each 06/15/24 10:22 06/15/24 10:28 Hydrocodone/Apap 5-325mg 1 Each Tab PO 1 each Q6HR PRN Administration Pain Aspirin 81 mg 06/16/24 09:00 Aspirin 81 Mg PO DAILY [facility]1983 Atorvastatin Calcium 40 mg 06/15/24 21:00 Atorvastatin 40 Mg Tab PO HS JAKE Cyclobenzaprine HCl 5 mg 06/14/24 22:54 06/14/24 23:07 Cyclobenzaprine 5 Mg Tab PO 5 mg TID PRN Administration Muscle Spasm Famotidine 20 mg 06/14/24 22:13 06/14/24 23:07 Famotidine 20 Mg Tab PO 20 mg HS PRN Administration GERD Hydromorphone HCl 0.5 mg 06/14/24 18:44 06/15/24 06:27 Hydromorphone 0.5 Mg/0.5 Ml Syringe IVP 0.5 mg Q3HR PRN Administration Moderate Pain (Scale 4 to 6) Isosorbide Mononitrate 30 mg 06/15/24 09:00 06/15/24 08:05 Isosorbide Mononitrate Er 30 Mg Tab.Er.24h PO 30 mg DAILY [facility]1983 Administration Lisinopril 5 mg 06/15/24 09:00 06/15/24 10:26 Lisinopril 5 Mg Tab PO Not Given DAILY [facility]1983 Melatonin 10 mg 06/15/24 01:20 06/15/24 01:24 Melatonin 5 Mg Tablet PO 10 mg HS PRN Administration Insomnia Metoprolol Tartrate 50 mg 06/15/24 10:45 Metoprolol Tartrate 50 Mg Tab PO DAILY [facility]1983 Naloxone HCl 0.2 mg 06/14/24 18:44 Naloxone 0.4 Mg/Ml 1 Ml Vial IV Q2M PRN Opioid Reversal Nitroglycerin 0.4 mg 06/15/24 10:37 Nitroglycerin Sl Tabs 0.4 Mg Tab SUBLINGUAL Q5M PRN Chest Pain Ondansetron HCl 4 mg 06/14/24 18:44 Ondansetron 4 Mg/2 Ml Vial IVP Q8HR PRN Nausea And Vomiting Pantoprazole Sodium 40 mg 06/15/24 09:00 06/15/24 08:05 Pantoprazole 40 Mg Tablet PO 40 mg DAILY JAKE Administration Sertraline HCl 150 mg 06/15/24 09:00 06/15/24 08:05 Sertraline 50 Mg Tab PO 150 mg DAILY JAKE Administration Trazodone HCl 150 mg 06/14/24 21:00 06/14/24 23:07 Trazodone Hcl 50 Mg Tab PO 150 mg HS JAKE Administration Intake and Output 06/14/24 06/15/24 06/15/24 22:59 06:59 14:59 Other: Voiding Method Toilet # Voids 2 Weight 36.741 kg 35.6 kg 06/15/24 07:20 06/14/24 16:11
[2024-06-15] MEDS: ATORVASTATIN 40 MG TAB PO SCH (19:54)
[2024-06-16] MEDS: ASPIRIN 81 MG PO SCH (08:31)
--- NOTE | 2024-06-16 12:48 | P.PN ---
Subjective Progress Note Date: 06/16/24 patient is a 69-year-old lady with past medical history significant for coronary artery disease status post multiple stents, hypertension, hyperlipidemia who presented to the ER because of chest pain. Patient stated that she was a usual state of health 3 days ago when he started experiencing stabbing intermittent chest pain that was central location, nonradiating, no aggravating or relieving factor associated chest pain. Patient does follow-up with pain clinic for her back pain. Denies any shortness of breath with no complaint palpitations. Denies any orthopnea or PND. Patient is complaining of increased lethargy and states that she was off her medications for the last few days. Because of chest pain, patient presented to the ER Initial lab work done in the ER showed WBC 8.4, hemoglobin 14, platelet count 297, sodium 141, potassium 4.7, chloride 112, carbon/17, BUN 20, creatinine 1.11 troponin 0.051 EKG done in the ER showed heart rate of 83, no ST segment elevation or depression seen, no T-wave inversions seen. Chest x-ray done in the ER showed no acute cardiopulmonary process, showed COPD Patient admitted to internal medicine service 06/16. Patient seen and examined. States chest pain has resolved. D-dimer has been chronically elevated. Blood pressure was low, decrease Imdur to 15 mg daily REVIEW OF SYSTEMS: CONSTITUTIONAL: No fever, no malaise,. CARDIOVASCULAR: No chest pain, no palpitations, no syncope. PULMONARY: No shortness of breath, no cough, GASTROINTESTINAL: No diarrhea, no nausea, no vomiting, no abdominal pain. NEUROLOGICAL: No headaches, no weakness, PHYSICAL EXAMINATION: GENERAL: The patient is alert and oriented x3, not in any acute distress. Well developed, well nourished. HEENT: Pupils are round and equally reacting to light. EOMI. No scleral icterus. No conjunctival pallor. Normocephalic, atraumatic. No pharyngeal erythema. No thyromegaly. CARDIOVASCULAR: S1 and S2 present. No murmurs, rubs, or gallops. PULMONARY: Chest is clear to auscultation, no wheezing or crackles. ABDOMEN: Soft, nontender, nondistended, normoactive bowel sounds. No palpable organomegaly. MUSCULOSKELETAL: No joint swelling or deformity. EXTREMITIES: No cyanosis, clubbing, or pedal edema. NEUROLOGICAL: Gross neurological examination did not reveal any focal deficits. SKIN: No rashes. Assessment and plan Chest pain, rule out acute coronary syndrome Hypertension Hyperlipidemia History of coronary artery disease Monitor vital signs Monitor CBC Monitor CMP Continue telemetry monitoring Continue pain control Continue Toprol Dose of Imdur decreased to 50 mg daily Cardiology following Labs and medication were reviewed.. Continue same treatment. Continue with symptomatic treatment. Resume home medication. Monitor labs and vitals. DVT and GI prophylaxis. Further recommendations as per clinical course of the patient Dictation was produced using [employer] dictation software. please excuse any grammatical, word or spelling errors. Objective - Vital Signs Vital signs: Vital Signs Temp 98.2 F 06/16/24 05:00 Pulse 93 06/16/24 11:13 Resp 16 06/16/24 11:13 BP 83/49 06/16/24 11:13 Pulse Ox 95 06/16/24 11:13 FiO2 Intake & Output 06/15/24 06/16/24 06/16/24 18:59 06:59 18:59 Intake Total 240 Balance 240 Weight 35.6 kg 37.3 kg Intake: Oral 240 Other: Voiding Method Toilet # Voids 2 # Bowel Movements 0 - Labs CBC & Chem 7: 06/15/24 07:20 06/14/24 16:11
--- NOTE | 2024-06-16 17:11 | P.PN ---
Subjective Progress Note Date: 06/16/24 (Cardiology Progress ) HISTORY OF PRESENT ILLNESS: This is a 69-year-old female with past medical history significant for CAD, known chronic total occlusion of the RCA, prior stenting of LCx, mild cardiom yopathy, hypertension, dyslipidemia, current smoker. Patient follows in the office with Dr. Alex. We have been asked to see the patient in consultation for possible NSTEMI. Patient was examined at the bedside.Patient stated that she was a usual state of health 3 days ago when he started experiencing stabbing intermittent chest pain that was centrally location, nonradiating, no aggravating or relieving factor associated chest pain. Patient does follow-up with pain clinic for her back pain. Denies any shortness of breath with no complaint palpitations. Denies any orthopnea or PND. DIAGNOSTICS: - EKG done in the ER showed heart rate of 83, no ST segment elevation or depression seen, no T-wave inversions seen. - Chest xray shows no acute process, COPD changes notably hyperinflation and flattening of the diaphragms - Laboratory data: MCV 103.5. D-dimer 1.96. Chloride 112. Bicarb 17. BUN 22. Creatinine 1.11. GFR 51. Glucose 101. Troponin 0.051, 0.012 - Current home cardiac medications include Imdur 30 mg daily, lisinopril 5 mg daily Most recent echocardiogram from January 2024 showed EF 45 to 50%, mild MR, mild TR, no pericardial effusion REVIEW OF SYSTEMS: As stated in HPI above. 06/16/24 Patient examined at bedside this morning. Her only complaint is midsternal chest pain, more likely to be MSK than cardiac in nature. PHYSICAL EXAM: VITAL SIGNS: Reviewed. GENERAL: Well-developed in no acute distress. HEENT: Head is normocephalic. Pupils are equal, round. Sclerae anicteric. Mucous membranes of the mouth are moist. Neck supple. No JVD or thyromegaly LUNGS: Respirations even and unlabored. Some crackles bilaterally. Slightly diminished breath sounds bilaterally. HEART: Distant heart sounds. Regular rate and rhythm. S1 and S2 heard. No murmurs rubs or gallops. ABDOMEN: Soft. Nontender to palpation. EXTREMITIES: Normal range of motion. No clubbing or cyanosis. Peripheral pulses intact. No lower extremity edema NEUROLOGIC: Awake and alert. Oriented x 3. 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 Objective - Vital Signs Vital signs: Vital Signs Temp 98.2 F 06/16/24 05:00 Pulse 62 06/16/24 16:04 Resp 16 06/16/24 16:04 BP 91/54 06/16/24 16:04 Pulse Ox 94 L 06/16/24 16:04 FiO2 Intake & Output 06/15/24 06/16/24 06/16/24 18:59 06:59 18:59 Intake Total 240 356 Balance 240 356 Weight 35.6 kg 37.3 kg Intake: Oral 240 356 Other: Voiding Method Toilet # Voids 2 # Bowel Movements 0 - Labs CBC & Chem 7: 06/15/24 07:20 06/14/24 16:11
[2024-06-17 08:14] VITALS: PULSE 72
[2024-06-17] MEDS: ISOSORBIDE MONONITRATE ER 15 MG TAB PO SCH (08:14)
[2024-06-17 11:23] VITALS: BP 110/62; RESP 16; TEMP 98.3
--- NOTE | 2024-06-17 12:25 | P.DS ---
Providers Date of admission: 06/14/24 17:42 Expected date of discharge: 06/17/24 Attending physician: Wilfredo Bryant MD Consults: 06/14/24 18:44 Consult Physician Urgent Consulting Provider: Juventino Alex Consult Reason/Comments: NSTEMI Do you want consulting provider notified?: Yes Primary care physician: [facility] Course: Discharge diagnoses; Chest pain, acute coronary syndrome ruled out Hypertension Hyperlipidemia History of coronary artery disease Hospital course; patient is a 69-year-old lady with past medical history significant for coronary artery disease status post multiple stents, hypertension, hyperlipidemia who presented to the ER because of chest pain. Patient stated that she was a usual state of health 3 days ago when he started experiencing stabbing intermittent chest pain that was central location, nonradiating, no aggravating or relieving factor associated chest pain. Patient does follow-up with pain clinic for her back pain. Denies any shortness of breath with no complaint palpitations. Denies any orthopnea or PND. Patient is complaining of increased lethargy and states that she was off her medications for the last few days. Because of chest pain, patient presented to the ER Initial lab work done in the ER showed WBC 8.4, hemoglobin 14, platelet count 297, sodium 141, potassium 4.7, chloride 112, carbon/17, BUN 20, creatinine 1.11 troponin 0.051 EKG done in the ER showed heart rate of 83, no ST segment elevation or depression seen, no T-wave inversions seen. Chest x-ray done in the ER showed no acute cardiopulmonary process, showed COPD Patient admitted to internal medicine service 06/16. Patient seen and examined. States chest pain has resolved. D-dimer has been chronically elevated. Blood pressure was low, decrease Imdur to 15 mg daily. 06/17. Patient seen and examined. Cardiology recommended keeping patient on cardiac medications, outpatient follow-up. PHYSICAL EXAMINATION: GENERAL: The patient is alert and oriented x3, not in any acute distress. Well developed, well nourished. HEENT: Pupils are round and equally reacting to light. EOMI. No scleral icterus. No conjunctival pallor. Normocephalic, atraumatic. No pharyngeal erythema. No thyromegaly. CARDIOVASCULAR: S1 and S2 present. No murmurs, rubs, or gallops. PULMONARY: Chest is clear to auscultation, no wheezing or crackles. ABDOMEN: Soft, nontender, nondistended, normoactive bowel sounds. No palpable organomegaly. MUSCULOSKELETAL: No joint swelling or deformity. EXTREMITIES: No cyanosis, clubbing, or pedal edema. NEUROLOGICAL: Gross neurological examination did not reveal any focal deficits. SKIN: No rashes. Dictation was produced using [employer] dictation software. please excuse any grammatical, word or spelling errors. Patient Condition at Discharge: Stable Plan - Discharge Summary Discharge Rx Participant: Yes New Discharge Prescriptions: New Aspirin 81 mg PO DAILY #30 tab Atorvastatin [Lipitor] 40 mg PO HS #30 tab Metoprolol Tartrate [Lopressor] 50 mg PO DAILY #30 tab Isosorbide Mononitrate ER [Imdur] 15 mg PO DAILY #30 tab Continue traZODone HCL 150 mg PO HS 30 Days tablet Omeprazole 40 mg PO DAILY Sertraline [Zoloft] 150 mg PO DAILY Famotidine [Pepcid] 20 mg PO HS PRN PRN Reason: GERD Cyclobenzaprine [Flexeril] 5 mg PO TID PRN PRN Reason: Muscle Spasm Dicyclomine [Bentyl] 10 mg PO AC-TID HYDROcodone/APAP 5-325MG [[place] 5-325] 1 tab PO DIRECTED PRN PRN Reason: Pain Discontinued lisinopriL [Zestril] 5 mg PO DAILY Isosorbide Mononitrate ER [Imdur] 30 mg PO DAILY Discharge Medication List traZODone HCL 150 mg PO HS 30 Days tablet 04/17/22 [Rx] Omeprazole 40 mg PO DAILY 10/17/22 [History] Famotidine [Pepcid] 20 mg PO HS PRN 12/23/22 [History] Sertraline [Zoloft] 150 mg PO DAILY 12/23/22 [History] Cyclobenzaprine [Flexeril] 5 mg PO TID PRN 06/14/24 [History] Dicyclomine [Bentyl] 10 mg PO AC-TID 06/14/24 [History] HYDROcodone/APAP 5-325MG [[place] 5-325] 1 tab PO DIRECTED PRN 06/14/24 [History] Aspirin 81 mg PO DAILY #30 tab 06/17/24 [Rx] Atorvastatin [Lipitor] 40 mg PO HS #30 tab 06/17/24 [Rx] Isosorbide Mononitrate ER [Imdur] 15 mg PO DAILY #30 tab 06/17/24 [Rx] Metoprolol Tartrate [Lopressor] 50 mg PO DAILY #30 tab 06/17/24 [Rx] Follow up Appointment(s)/Referral(s): Marium Mazariegos MD [Primary Care Provider] - 1-2 days Discharge Disposition: HOME SELF-CARE
[2024-06-17] MEDS: RANOLAZINE 500 MG TAB.ER.12H PO SCH (12:49)
--- NOTE | 2024-06-17 13:46 | P.PN ---
Subjective HISTORY OF PRESENT ILLNESS: Patient examined this morning by Dr. Blanco. Patient currently denies any shortness of breath. She continues to report episodes of chest discomfort. Vital signs are stable. Blood pressure 110/62. PHYSICAL EXAM: VITAL SIGNS: Reviewed. GENERAL: Well-developed in no acute distress. NECK: Supple. No JVD or thyromegaly LUNGS: Respirations even and unlabored. Lungs essentially clear to auscultation bilaterally. HEART: Regular rate and rhythm. S1 and S2 heard. EXTREMITIES: Normal range of motion. No clubbing or cyanosis. Peripheral pulses intact. 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 Signing provider agrees with the documented findings, assessment, and plan of care documented by NURSE LDR as a scribe. Objective - Vital Signs Vital signs: Vital Signs Temp 98.3 F 06/17/24 11:22 Pulse 72 06/17/24 11:22 Resp 16 06/17/24 11:22 BP 110/62 06/17/24 11:22 Pulse Ox 97 06/17/24 11:22 FiO2 Intake & Output 06/16/24 06/17/24 06/17/24 18:59 06:59 18:59 Intake Total 474 232 Balance 474 232 Weight 37.6 kg Intake: IV 10 Invasive Line 1 10 Oral 474 222 Other: Voiding Method Toilet Toilet # Bowel Movements 0 - Labs CBC & Chem 7: 06/15/24 07:20 06/14/24 16:11
== END 2024-06-17 14:49 | disposition home or self-care (01) ==
LOC: EC 15:49 → 3SCARD 17:42
PROVIDERS: ADMIT Internal Medicine; ATTEND Internal Medicine
DX: R07.89 Other chest pain (principal); I25.10 Atherosclerotic heart disease of native coronary artery without angina pectoris; I25.82 Chronic total occlusion of coronary artery; J44.9 Chronic obstructive pulmonary disease, unspecified; E78.5 Hyperlipidemia, unspecified; I12.9 Hypertensive chronic kidney disease with stage 1 through stage 4 chronic kidney disease, or unspecified chronic kidney disease; N18.31 Chronic kidney disease, stage 3a; F32.A Depression, unspecified; F41.9 Anxiety disorder, unspecified; I25.5 Ischemic cardiomyopathy; F17.210 Nicotine dependence, cigarettes, uncomplicated; R63.6 Underweight; M79.7 Fibromyalgia; M81.0 Age-related osteoporosis without current pathological fracture; G89.29 Other chronic pain; Z68.1 Body mass index [BMI] 19.9 or less, adult; Z95.5 Presence of coronary angioplasty implant and graft; Z79.899 Other long term (current) drug therapy; Z88.6 Allergy status to analgesic agent; Z91.041 Radiographic dye allergy status
CPT/HCPCS: 36415; 71046; 80053; 83735; 84484; 85025; 85379; 85610; 85652; 85730; 86140; 93005; 96361; 96374; 96375; 96376; 99291

== ENCOUNTER → 2024-06-14 | Outpatient (CLI) | payer MEDICARE ==
[2024-06-14 14:24] VITALS: BP 73/42; PULSE 46; RESP 16
--- NOTE | 2024-06-14 15:13 | P.PAINPG ---
Objective - Vital Signs Vital signs: Vital Signs Temp Pulse 46 L 06/14/24 14:21 Resp 16 06/14/24 14:21 BP 73/42 06/14/24 14:21 Pulse Ox 88 L 06/14/24 14:21 FiO2 Intake & Output 06/13/24 06/14/24 06/14/24 18:59 06:59 18:59 Weight 89 kg PQRS Measure Charge Sheet Mode of Arrival: Ambulatory Comment: HISTORY OF PRESENT ILLNESS: A 69 yr old female w daughter at [facility] presents today w severe and chronic BARRETT and neck pain secondary to Occipital Neuralgia/ Cervicogenic BARRETT for evaluation s/p BL BLAYNE injections #1. Pt states she experienced 50 % pain relief x 6 mo s/p procedure. Pt states pain level is provoked at 9 /10 in intensity, constant, localized in the base of the head, predominantly axial, sharp in character w occasional shooting pain towards the temples BL. Pain is provoked by hyperextension. Pain is alleviated by physician guided HEP stretches daily since Apr 2024, injections, medications, topical, massage, repositioning and rest. Interventional procedures include BL BLAYNE x1 (Sep 2023) Medications include Trazodone, Excedrin REVIEW OF ORGAN SYSTEMS: CONSTITUTIONAL: No fevers or chills. No recent weight loss. NEUROLOGICAL: + numbness and tingling along the distal extremities. No seizure disorders or headaches. MUSCULOSKELETAL: + pain PSYCHIATRIC: Denies current depression or suicidal thought s. Physical Examinations : Constitutional : Cooperative , not in acute distress . Neurologic : Cranial nerve II to XII intact. No focal neurological deficits. Psychiatric : alert & oriented x 3. Matching mood & appropriate affect. Judgment & insight intact. Musculoskeletal : Cervical Spine +BL BLAYNE TTP Motor strength in the deltoid and biceps: Normal right side. Normal Left side Motor strength biceps and the wrist extensors: Normal right side . Normal left side Motor strength in the triceps muscle: Normal right side. Normal left side Deep tendon reflexes: Normal at the biceps. Normal at Brachioradialis. Normal at triceps Vertebral body tenderness to deep palpation over Cervical facet loading test: positive bilaterally C2-C3, C3-C4 Spurling test: positive bilaterally Neck distraction test: positive bilaterally Cayden sign: positive bilaterally Lumbar spine Motor strength lower extremities ,thigh and legs 5/5 Right side , 5/5 Left side Deep tendon reflexes : Normal Knee Jerk. Normal Ankle Jerk Vertebral body tenderness over Bolanos Test positive Lumbar facet Loading Test: positive Right / positive Left Range of motion of the lumbar spine Flexion 30 degrees, extension 10 degrees Straight Leg Raise test: Left/ Right positive at degrees Verna test: positive right / positive left. Severe tenderness over the Sacroiliac joint on the Right / Left sides Gaenslen test: positive bilaterally Seated flexion test: positive bilaterally. Sacral spine : Severe tenderness over the Sacroiliac joint: right side / left side Range of motion: Flexion of the lumbar spine <60 degrees Range of motion: Extension of the lumbar spine <20 degrees Gaenslen's Test positive Verna test: positive right side / left side Thigh Thrust Test Sacral Thrust Test Imaging: CT w/ without contrast of the brain from Sep 2022 reviewed Lumbar x rays from 09/11/23 reviewed Assessment/ Plan : Occipital Neuralgia/ Cervicogenic BARRETT Recommendation of CT non contrast cervical spine M54.14 and medication management. Opiate/ narcotic agreement sgined 06/14/24 [place] 5/325mg #60 w 1 RF. Use, side effects, adverse reactions, safe storage discussed. All questions answered. I have spent greater than 30 minutes on patient care today. Dr Starr was available by phone for the evaluation of this patient. The time was used to review the medical records including relevant urine studies and Prescription history (MAPs), review of the available imaging, evaluation and examination of the patient, coordination of care with the medical staff and if applicable referring physicians, as well as creation of the medical record - Pain Location Occipital Pharmacological Interventions: Epidural PQRS Narrative: Smoking Status Current every day smoker Blood Pressure 73/42 Pain Intensity [Occipital] 10 Scale Used Numeric (1 - 10) Hx Alcohol Use (MH) No Home Medications: Ambulatory Orders traZODone HCL 150 mg PO HS 30 Days tablet 04/17/22 Myyyfuz-Cqgq-Eolf [id number] [Excedrin] 2 tab PO TID@0500,1200,2000 10/17/22 Atorvastatin Calcium 20 mg PO HS 10/17/22 Omeprazole 40 mg PO DAILY 10/17/22 Famotidine [Pepcid] 20 mg PO HS 12/23/22 Sertraline [Zoloft] 150 mg PO DAILY 12/23/22 Albuterol Inhaler [Ventolin Hfa Inhaler] 1 puff INHALATION RT-Q4H PRN 09/30/23 Dicyclomine [Bentyl] 20 mg PO ACHS 02/03/24 Gabapentin [Neurontin] 100 mg PO BID 02/03/24 Montelukast [Singulair] 10 mg PO DAILY 02/03/24 OXcarbazepine [Trileptal] 150 mg PO HS 02/03/24 OXcarbazepine [Trileptal] 300 mg PO DAILY 02/03/24 Ngo-Diqw-Lhqjq Acid [-U Capsule (formulary)] 1 cap PO DAILY 02/03/24 lisinopriL [Zestril] 5 mg PO DAILY 02/03/24 Aspirin 81 mg PO DAILY #30 tab 02/06/24 Isosorbide Mononitrate ER [Imdur] 60 mg PO DAILY #30 tab 02/06/24 Lidocaine 4% Patch 1 patch TOPICAL HS PRN #20 patch 02/06/24 Nicotine 21Mg/24Hr Patch [Habitrol] 1 patch TRANSDERM DAILY patch 02/06/24 Ranolazine [Ranexa] 500 mg PO Q12HR #60 tab 02/06/24 Cyclobenzaprine [Flexeril] 10 mg PO TID #20 tab 03/31/24 predniSONE [Deltasone] 20 mg PO BID #10 tab 03/31/24 HYDROcodone/APAP 5-325MG [[place] 5-325] 1 tab PO BID PRN 30 Days #60 tab 06/14/24 HYDROcodone/APAP 5-325MG [[place] 5-325] 1 tab PO BID PRN 30 Days #60 tab 06/14/24 Controlled Substance Measures - Controlled Substance Measures Is patient prescribed a controlled substance at discharge?: Yes When asked, does pt state using other controlled substances?: Yes If prescribed controlled substance>3 days was MAPS reviewed?: Yes If Rx opioid, was Start Talking consent form obtained?: Yes If opioid is for acute pain is fill amount 7 days or less?: No Was information provided regarding opioid addiction?: Yes
== END ==
LOC: PNWHC3 14:04
PROVIDERS: ATTEND Specialist
DX: M54.16 Radiculopathy, lumbar region
CPT/HCPCS: 99211

== ENCOUNTER → 2024-06-14 | Outpatient (CLI) | payer MEDICARE ==
--- NOTE | 2024-06-14 20:11 | XR ---
EXAMINATION TYPE: XR cervical spine limited DATE OF EXAM: 06/14/2024 3:21 PM CLINICAL INDICATION: Female, 69 years old with history of M54.12 RADICULOPATHY, CERVICAL REGION; COMPARISON: 08/18/2023 TECHNIQUE: The cervical spine was imaged in frontal, lateral, and odontoid. FINDINGS: The osseous structures show straightened alignment without evidence of an acute fracture. There are o steophytes noted throughout the cervical spine on the anterior and lateral aspects of the vertebral b odies. The intervertebral disk spaces are narrowed at multiple levels Pedicles are intact. Soft tiss ues are within normal limits. The odontoid appears intact. IMPRESSION: 1. No fracture or dislocation. 2. Mild to moderate degenerative disc disease changes of the cervical spine. [facility], , 06/14/2024 8:08 PM
== END | disposition home or self-care (01) ==
LOC: RADXRMAIN 15:01
PROVIDERS: ATTEND Specialist
DX: M50.10 Cervical disc disorder with radiculopathy, unspecified cervical region (principal)
CPT/HCPCS: 72040

== ENCOUNTER 2024-06-28 12:55 | Inpatient (IN) | payer MEDICARE ==
--- NOTE | 2024-06-28 13:45 | ED ---
Abdominal Pain HPI - General Chief Complaint: Abdominal Pain Stated Complaint: abd pain Time Seen by Provider: 06/28/24 13:00 Source: patient Mode of arrival: EMS - History of Present Illness Initial Comments: 69-year-old female who presents emergency department with lower abdominal pain. States that the pain has been going on for a couple of weeks but got worse this evening. Describes it as a cramping sensation over her lower abdomen. Admits to diarrhea. Denies black or bloody stools. No fevers. Admits to nausea with vomiting. She denies any urinary complaints to include dysuria, hematuria or difficulty voiding. No sick contacts. Patient has history of abdominal aneurysm. no other alleviating, precipitating modifying factors - Related Data Home Medications Medication Instructions Recorded Confirmed Omeprazole 40 mg PO DAILY 10/17/22 06/28/24 Famotidine [Pepcid] 20 mg PO HS PRN 12/23/22 06/28/24 Sertraline [Zoloft] 150 mg PO DAILY 12/23/22 06/28/24 Cyclobenzaprine [Flexeril] 5 mg PO TID PRN 06/14/24 06/28/24 Dicyclomine [Bentyl] 10 mg PO AC-TID 06/14/24 06/28/24 Previous Rx's Medication Instructions Recorded traZODone HCL 150 mg PO HS 30 Days tablet 04/17/22 Aspirin 81 mg PO DAILY #30 tab 06/17/24 Atorvastatin [Lipitor] 40 mg PO HS #30 tab 06/17/24 HYDROcodone/APAP 5-325MG [[place] 1 tab PO BID PRN 30 Days #60 tab 06/17/24 5-325] Isosorbide Mononitrate ER [Imdur] 30 mg PO DAILY 30 Days #30 tab 06/17/24 Metoprolol Tartrate [Lopressor] 50 mg PO DAILY #30 tab 06/17/24 Ranolazine [Ranexa] 500 mg PO Q12HR 30 Days #60 tab 06/17/24 Allergies Allergy/AdvReac Type Severity Reaction Status Date / Time ibuprofen AdvReac NIGHTMARES Verified 06/28/24 17:46 Iodinated Contrast Media AdvReac Nausea & Verified 06/28/24 17:46 [Iodinated Contrast Media - Vomiting IV Dye] povidone-iodine AdvReac Nausea & Verified 06/28/24 17:46 [From Betadine] Vomiting soap [From Betadine] AdvReac Nausea & Verified 06/28/24 17:46 Vomiting Review of Systems ROS Statement: Those systems with pertinent positive or pertinent negative responses have been documented in the HPI. ROS Other: All systems not noted in ROS Statement are negative. Past Medical History Past Medical History: Coronary Artery Disease (CAD), Chest Pain / Angina, COPD, Fibromyalgia, Hyperlipidemia, Hypertension, Osteoarthritis (OA) Additional Past Medical History / Comment(s): Chronic back pain, DDD, bulging discs, scoliosis, osteoporosis., PAST HX JAW FX RT-CAUSES HEADACHES-TAKES TEGRETOL, abdominal aneurysm History of Any Multi-Drug Resistant Organisms: None Reported Past Surgical History: Breast Surgery, Heart Catheterization With Stent, Hysterectomy, Orthopedic Surgery Additional Past Surgical History / Comment(s): Back injections, L patellar surgery, R carpal tunnel release, L breast benign biopsy, sinus surgery, EGD Past Anesthesia/Blood Transfusion Reactions: No Reported Reaction Date of Last Stent Placement:: 05/10/20 Past Psychological History: Anxiety, Depression Smoking Status: Current every day smoker Past Alcohol Use History: None Reported Past Drug Use History: None Reported - Past Family History Mother Family Medical History: Cancer Additional Family Medical History / Comment(s): Mother had lupus and TB Father History Unknown: Yes General Exam General appearance: alert, in no apparent distress Head exam: Present: atraumatic, normocephalic, normal inspection Eye exam: Present: normal appearance, PERRL, EOMI. Absent: scleral icterus, conjunctival injection, periorbital swelling ENT exam: Present: normal exam, mucous membranes moist Neck exam: Present: normal inspection. Absent: tenderness, meningismus, lymphadenopathy Respiratory exam: Present: normal lung sounds bilaterally. Absent: respiratory distress, wheezes, rales, rhonchi, stridor Cardiovascular Exam: Present: regular rate, normal rhythm, normal heart sounds. Absent: systolic murmur, diastolic murmur, rubs, gallop, clicks GI/Abdominal exam: Present: tenderness (Lower left, right and suprapubic regions), normal bowel sounds. Absent: distended, guarding, rebound, rigid Extremities exam: Present: normal inspection, full ROM, normal capillary refill. Absent: tenderness, pedal edema, joint swelling, calf tenderness Back exam: Present: normal inspection Neurological exam: Present: alert, oriented X3, CN II-XII intact Psychiatric exam: Present: normal affect, normal mood Skin exam: Present: warm, dry, intact, normal color. Absent: rash Course Vital Signs 06/28/24 06/28/24 06/28/24 12:58 16:01 21:00 Temperature 97.7 F Pulse Rate 109 H 64 74 Respiratory 20 18 18 Rate Blood Pressure 156/82 136/74 115/78 O2 Sat by Pulse 94 L 98 98 Oximetry 06/29/24 00:47 Temperature 98.4 F Pulse Rate 84 Respiratory 17 Rate Blood Pressure 173/96 O2 Sat by Pulse 95 Oximetry Medical Decision Making - Medical Decision Making Was pt. sent in by a medical professional or institution (, PA, ELECTRICAL DRAFTER, urgent care, hospital, or fdc...) When possible be specific @ -No Did you speak to anyone other than the patient for history (EMS, parent, family, police, friend...)? What history was obtained from this source @ -Spoke with EMS for history Did you review nursing and triage notes (agree or disagree)? Why? @ -I reviewed and agree with nursing and triage notes Were old charts reviewed (outside hosp., previous admission, EMS record, old EKG, old radiological studies, urgent care reports/EKG's, fdc records)? Report findings @ -No old charts were reviewed Differential Diagnosis (chest pain, altered mental status, abdominal pain women, abdominal pain men, vaginal bleeding, weakness, fever, dyspnea, syncope, headache, dizziness, GI bleed, back pain, seizure, CVA, palpatations, mental health, musculoskeletal)? @ -Differential Abdominal Pain Women: Appendicitis, Cholecystitis, diverticulosis, ischemic bowel, pancreatitis, hepatitis, UTI, gastroenteritis, AAA, incarcerated hernia, bowel obstruction, constipation, inflammatory bowel, hepatitis, peptic ulcer disease, splenic infarction, perforated viscus, vulvitis, ovarian torsion, PID, kidney stone, placenta abruption, this is not meant to be an all-inclusive list EKG interpreted by me (3pts min.). @ -Yes and demonstrates sinus tachycardia with a rate of 100. VT interval 125. QRS 93. QTc of 388. No acute ST segment elevations or depressions X-rays interpreted by me (1pt min.). @ -None done CT interpreted by me (1pt min.). @ -Yes and demonstrates colitis U/S interpreted by me (1pt. min.). @ -None done What testing was considered but not performed or refused? (CT, X-rays, U/S, labs)? Why? @ -None What meds were considered but not given or refused? Why? @ -None Did you discuss the management of the patient with other professionals (professionals i.e. , PA, ELECTRICAL DRAFTER, lab, RT, psych nurse, social media editor, range rider, teacher, trust officer, family service caseworker)? Give summary @ -Spoke with Shruti for admission Was smoking cessation discussed for >3mins.? @ -No Was critical care preformed (if so, how long)? @ -No Were there social determinants of health that impacted care today? How? (Homelessness, low income, unemployed, alcoholism, drug addiction, transportation, low edu. Level, literacy, decrease access to med. care, [facility], rehab)? @ -No Was there de-escalation of care discussed even if they declined (Discuss DNR or withdrawal of care, Hospice)? DNR status @ -No What co-morbidities impacted this encounter? (DM, HTN, Smoking, COPD, CAD, Cancer, CVA, ARF, Chemo, Hep., AIDS, mental health diagnosis, sleep apnea, morbid obesity)? @ -Chronic back pain Was patient admitted / discharged? Hospital course, mention meds given and route, prescriptions, significant lab abnormalities, going to OR and other pertinent info. @ -Admitted. Upon arrival patient seen and evaluated in room 12. Thorough history and physical exam was performed. IV access was established. Laboratory studies are conducted. CT was performed. Patient reevaluated. Continues to have immense pain. She is given a second dose of pain medication and is slightly more comfortable. I did discuss the results. Patient requesting to do IV antibiotics and admission due to pain level. I did speak with the admitting team who was agreeable to keeping the patient Undiagnosed new problem with uncertain prognosis? @ -No Drug Therapy requiring intensive monitoring for toxicity (Heparin, Nitro, Insulin, Cardizem)? @ -No Were any procedures done? @ -No Diagnosis/symptom? @ -Acute lower abdominal pain, acute colitis Acute, or Chronic, or Acute on Chronic? @ -Acute Uncomplicated (without systemic symptoms) or Complicated (systemic symptoms)? @ -Complicated Side effects of treatment? @ -No Exacerbation, Progression, or Severe Exacerbation? @ -No Poses a threat to life or bodily function? How? (Chest pain, USA, SC, pneumonia, PE, COPD, DKA, ARF, appy, cholecystitis, CVA, Diverticulitis, Homicidal, Suicida l, threat to staff... and all critical care pts) @ -No - Lab Data Result diagrams: 07/01/24 03:58 07/01/24 03:58 Lab Results 06/28/24 06/28/24 06/28/24 Range/Units 14:06 14:06 14:06 WBC 11.0 H (3.8-10.6) k/uL RBC 3.50 L (3.80-5.40) m/uL Hgb 11.4 (11.4-16.0) gm/dL Hct 35.3 (34.0-46.0) % MCV 100.7 H (80.0-100.0) fL MCH 32.5 (25.0-35.0) pg MCHC 32.3 (31.0-37.0) g/dL RDW 13.7 (11.5-15.5) % Plt Count 267 (150-450) k/uL MPV 7.6 Neutrophils % 79 % Lymphocytes % 11 % Monocytes % 4 % Eosinophils % 4 % Basophils % 0 % Neutrophils # 8.7 H (1.3-7.7) k/uL Lymphocytes # 1.2 (1.0-4.8) k/uL Monocytes # 0.5 (0-1.0) k/uL Eosinophils # 0.4 (0-0.7) k/uL Basophils # 0.0 (0-0.2) k/uL Macrocytosis Slight Sodium 136 L (137-145) mmol/L Potassium 4.1 (3.5-5.1) mmol/L Chloride 112 H (98-107) mmol/L Carbon Dioxide 16 L (22-30) mmol/L Anion Gap 8 mmol/L BUN 34 H (7-17) mg/dL Creatinine 1.32 H (0.52-1.04) mg/dL Est GFR (CKD-EPI)AfAm 48 (>60 ml/min/1.73 sqM) Est GFR (CKD-EPI)NonAf 41 (>60 ml/min/1.73 sqM) Glucose 99 (74-99) mg/dL Plasma Lactic Acid Chauncey 0.5 L (0.7-2.0) mmol/L Calcium 8.8 (8.4-10.2) mg/dL Total Bilirubin 0.5 (0.2-1.3) mg/dL AST 23 (14-36) U/L ALT 7 (4-34) U/L Alkaline Phosphatase 246 H (38-126) U/L Total Protein 5.7 L (6.3-8.2) g/dL Albumin 3.2 L (3.5-5.0) g/dL Lipase 42 (23-300) U/L Urine Color Urine Appearance (Clear) Urine pH (5.0-8.0) Ur Specific [place] (1.001-1.035) Urine Protein (Negative) Urine Glucose (UA) (Negative) Urine Ketones (Negative) Urine Blood (Negative) Urine Nitrite (Negative) Urine Bilirubin (Negative) Urine Urobilinogen (<2.0) mg/dL Ur Leukocyte Esterase (Negative) Urine RBC (0-5) /hpf Urine WBC (0-5) /hpf Ur Squamous Epith Cells (0-4) /hpf Urine Mucus (None) /hpf 06/28/24 Range/Units 19:37 WBC (3.8-10.6) k/uL RBC (3.80-5.40) m/uL Hgb (11.4-16.0) gm/dL Hct (34.0-46.0) % MCV (80.0-100.0) fL MCH (25.0-35.0) pg MCHC (31.0-37.0) g/dL RDW (11.5-15.5) % Plt Count (150-450) k/uL MPV Neutrophils % % Lymphocytes % % Monocytes % % Eosinophils % % Basophils % % Neutrophils # (1.3-7.7) k/uL Lymphocytes # (1.0-4.8) k/uL Monocytes # (0-1.0) k/uL Eosinophils # (0-0.7) k/uL Basophils # (0-0.2) k/uL Macrocytosis Sodium (137-145) mmol/L Potassium (3.5-5.1) mmol/L Chloride (98-107) mmol/L Carbon Dioxide (22-30) mmol/L Anion Gap mmol/L BUN (7-17) mg/dL Creatinine (0.52-1.04) mg/dL Est GFR (CKD-EPI)AfAm (>60 ml/min/1.73 sqM) Est GFR (CKD-EPI)NonAf (>60 ml/min/1.73 sqM) Glucose (74-99) mg/dL Plasma Lactic Acid Chauncey (0.7-2.0) mmol/L Calcium (8.4-10.2) mg/dL Total Bilirubin (0.2-1.3) mg/dL AST (14-36) U/L ALT (4-34) U/L Alkaline Phosphatase (38-126) U/L Total Protein (6.3-8.2) g/dL Albumin (3.5-5.0) g/dL Lipase (23-300) U/L Urine Color Colorless Urine Appearance Clear (Clear) Urine pH 5.0 (5.0-8.0) Ur Specific [place] 1.035 (1.001-1.035) Urine Protein Trace H (Negative) Urine Glucose (UA) Negative (Negative) Urine Ketones Negative (Negative) Urine Blood Trace H (Negative) Urine Nitrite Negative (Negative) Urine Bilirubin Negative (Negative) Urine Urobilinogen <2.0 (<2.0) mg/dL Ur Leukocyte Esterase Small H (Negative) Urine RBC 1 (0-5) /hpf Urine WBC 3 (0-5) /hpf Ur Squamous Epith Cells 1 (0-4) /hpf Urine Mucus Rare H (None) /hpf Disposition Clinical Impression: Abdominal pain, Colitis Disposition: ADMITTED IP TO THIS [facility] Condition: Stable Is patient prescribed a controlled substance at d/c from ED?: No Time of Disposition: 20:19 Decision to Admit Reason: Admit from EC Decision Date: 06/28/24 Decision Time: 20:19
[2024-06-28 14:15] LABS: Basophils % (A) 0 %; Eosinophils # (A) 0.4 k/uL (0-0.7); Eosinophils % (A) 4 %; HCT 35.3 % (34.0-46.0); HGB 11.4 gm/dL (11.4-16.0); Lymphocytes # (A) 1.2 k/uL (1.0-4.8); Lymphocytes % (A) 11 %; MCH 32.5 pg (25.0-35.0); MCHC 32.3 g/dL (31.0-37.0); MCV 100.7 fL (80.0-100.0); Macrocytosis Slight; Mean Platelet Volume 7.6; Monocytes # (A) 0.5 k/uL (0-1.0); Monocytes % (A) 4 %; Neutrophils # (A) 8.7 k/uL (1.3-7.7); Neutrophils % (A) 79 %; Platelet Count 267 k/uL (150-450); RDW 13.7 % (11.5-15.5)
[2024-06-28 14:19] LABS: ALT 7 U/L (4-34); AST 23 U/L (14-36); African American GFR (CKD) 48 (>60 ml/min/1.73 sqM); Albumin 3.2 g/dL (3.5-5.0); Alkaline Phosphatase 246 U/L (38-126); Anion Gap 8 mmol/L; Blood Urea Nitrogen 34 mg/dL (7-17); Calcium 8.8 mg/dL (8.4-10.2); Carbon Dioxide 16 mmol/L (22-30); Chloride 112 mmol/L (98-107); Glucose 99 mg/dL (74-99); Lipase 42 U/L (23-300); Non-African American GFR(CKD) 41 (>60 ml/min/1.73 sqM); Potassium 4.1 mmol/L (3.5-5.1); Sodium 136 mmol/L (137-145); Total Bilirubin 0.5 mg/dL (0.2-1.3); Total Protein 5.7 g/dL (6.3-8.2)
[2024-06-28] MEDS: METOCLOPRAMIDE 5 MG/ML 2 ML VIAL IVP STA (14:58)
[2024-06-28] MEDS: methylPREDNISolone SOD SUCCI 125 MG/2 ML VIAL IV STA (15:00)
[2024-06-28] MEDS: FAMOTIDINE 20 MG/2 ML VIAL IV STA (15:01)
[2024-06-28] MEDS: MORPHINE SULFATE 4 MG/ML SYRINGE IVP STA (15:02)
[2024-06-28] MEDS: diphenhydrAMINE 50 MG/ML 1 ML VIAL IVP STA (15:02)
[2024-06-28] MEDS: SODIUM CHLORIDE 0.9% 1,000 ML IV ONE (15:03)
--- NOTE | 2024-06-28 16:46 | CT ---
EXAMINATION TYPE: CT abdomen pelvis w con DATE OF EXAM: 06/28/2024 COMPARISON: 02/07/2023 HISTORY: abd pain CT DLP: 364.3 mGycm Automated exposure control for dose reduction was used. TECHNIQUE: Helical acquisition of images was performed from the lung bases through the pelvis. CONTRAST: Performed without Oral Contrast and with IV Contrast, patient injected with 80 mL of Isovue 300. FINDINGS: The lung bases are clear. The gallbladder is normal without distention, wall thickening, pericholecystic fluid or gallstones. T here is no biliary ductal dilatation. There is no focal mass or organomegaly involving the liver, pancreas, spleen or adrenal glands. There is no solid renal mass or hydronephrosis and there is homogeneous contrast enhancement of the r enal parenchyma. There is moderate atrophy of the right kidney. The aorta is 3.2 cm in AP dimension at the thoracic inlet mass with mild aneurysm and mild mural thro mbus. There is 3.6 cm AP diameter aneurysmal dilatation of the infrarenal abdominal aorta with moderate mur al thrombus. There is no bowel obstruction. There is diffuse edema and the wall of the descending and sigmoid colo n. There is enhancement of mucosa and the findings are consistent with infection or inflammation. Fin dings are similar to that seen on the study of 02/07/2023. There is no free intraperitoneal air or fluid. No pelvic mass, free fluid, abscess or adenopathy. There is mild prostatic hypertrophy The osseous structures and soft tissues are intact. IMPRESSION: 1. Infectious/inflammatory changes in the descending and sigmoid colon. No bowel obstruction, abdomin al abscess, free air or free fluid. Findings similar to that seen on the prior study of 02/07/2023. 2. Stable supra and infrarenal abdominal aortic aneurysm. [facility], , 06/28/2024 4:43 PM
[2024-06-28] MEDS: HYDROmorphone 1 MG/ML 1 ML SYRINGE IVP STA (19:29)
[2024-06-28 19:56] LABS: Appearance,Urine Clear (Clear); Bilirubin,Urine Negative (Negative); Blood,Urine Trace (Negative); Color,Urine Colorless; Glucose,Urine (UA) Negative (Negative); Ketones,Urine Negative (Negative); Leukocyte Esterase,Urine Small (Negative); Mucus,Urine Rare /hpf; Nitrite,Urine Negative (Negative); Protein,Urine Trace (Negative); RBC,Urine 1 /hpf (0-5); Specific Gravity,Urine 1.035 (1.001-1.035); Squamous Epithelial Cell,Urine 1 /hpf (0-4); Urobilinogen,Urine <2.0 mg/dL (<2.0); WBC,Urine 3 /hpf (0-5)
[2024-06-28] MEDS: cefTRIAXone IN SWFI 1,000 MG/10 ML SYRINGE IVP STA (20:07)
[2024-06-28] MEDS: metroNIDAZOLE-NS PMX 500 MG in SALINE 1 100ML.BAG IVPB SCH (20:35)
[2024-06-28] MEDS ORDERED: NALOXONE 0.4 MG/ML 1 ML VIAL IV PRN (20:35)
[2024-06-28] MEDS: SODIUM CHLORIDE 0.9% 1,000 ML IV SCH (21:23)
[2024-06-28] MEDS: MORPHINE SULFATE 4 MG/ML SYRINGE IV PRN (23:57)
[2024-06-29 04:41] LABS: African American GFR (CKD) 63 (>60 ml/min/1.73 sqM); Anion Gap 8 mmol/L; Blood Urea Nitrogen 19 mg/dL (7-17); Calcium 8.7 mg/dL (8.4-10.2); Carbon Dioxide 19 mmol/L (22-30); Chloride 110 mmol/L (98-107); Glucose 157 mg/dL (74-99); Non-African American GFR(CKD) 54 (>60 ml/min/1.73 sqM); Potassium 3.7 mmol/L (3.5-5.1); Sodium 137 mmol/L (137-145)
[2024-06-29 05:17] LABS: Basophils % (A) 0 %; Eosinophils % (A) 0 %; HGB 10.6 gm/dL (11.4-16.0); Lymphocytes # (A) 0.6 k/uL (1.0-4.8); Lymphocytes % (A) 7 %; MCH 33.3 pg (25.0-35.0); MCHC 33.2 g/dL (31.0-37.0); MCV 100.3 fL (80.0-100.0); Macrocytosis Slight; Mean Platelet Volume 8.1; Monocytes # (A) 0.1 k/uL (0-1.0); Monocytes % (A) 2 %; Neutrophils # (A) 7.7 k/uL (1.3-7.7); Neutrophils % (A) 91 %; Platelet Count 248 k/uL (150-450); RBC 3.19 m/uL (3.80-5.40); RDW 14.3 % (11.5-15.5); WBC 8.5 k/uL (3.8-10.6)
[2024-06-29] MEDS: DICYCLOMINE 10 MG CAP PO SCH (06:34)
[2024-06-29] MEDS: PANTOPRAZOLE 40 MG TABLET PO SCH (06:34)
[2024-06-29] MEDS: RANOLAZINE 500 MG TAB.ER.12H PO SCH (09:37)
[2024-06-29] MEDS: ASPIRIN 81 MG PO SCH (09:37)
[2024-06-29] MEDS: METOPROLOL TARTRATE 50 MG TAB PO SCH (09:37)
[2024-06-29] MEDS: ISOSORBIDE MONONITRATE ER 30 MG TAB.ER.24H PO SCH (09:37)
[2024-06-29] MEDS: SERTRALINE 100 MG TAB PO SCH (09:37)
[2024-06-29 15:20] VITALS: BMI 15.0
[2024-06-29] MEDS: NICOTINE 14MG/24HR PATCH TRANSDERM SCH (16:55)
[2024-06-29] MEDS: ALBUTEROL NEBULIZED 2.5 MG/3 ML INHALATION SCH (20:46)
[2024-06-29] MEDS: HEPARIN SODIUM,PORCINE 5,000 UNIT/ML 1 ML VIAL SQ SCH (21:38)
[2024-06-29] MEDS: ATORVASTATIN 40 MG TAB PO SCH (21:38)
[2024-06-29] MEDS: traZODone HCL 50 MG TAB PO SCH (21:38)
--- NOTE | 2024-06-29 23:44 | P.HPIM ---
History of Present Illness H&P Date: 06/29/24 Chief Complaint: Abdominal pain Patient is a 69-year-old female with a past medical history of coronary disease stent placement, hypertension, hyperlipidemia, fibromyalgia, history of GA, osteoarthritis, scoliosis, anxiety/depression and currently everyday smoker. Patient presents to ER with complaints of abdominal pain mainly mid abdomen and able to tolerate oral diet. Patient has been having symptoms for the past 4 days. Denied any fever or chills. No cough or sputum production. Patient had a prior colonoscopy about 4 years ago. Denies any recent illnesses. Does have nausea and episodes of vomiting. He did have loose stools previously. Denied any hematemesis or melena. CT of abdominal/pelvis in the ER showed infectious/inflammatory changes in the descending and sigmoid colon. No bowel obstruction., Abdominal abscess, free air are free-flowing. Findings similar to that seen on prior study of 02/07/2023. Stable supra and infrarenal abdominal aortic aneurysm EKG showed sinus tachycardia. Laboratory data showed WBC 11.0 hemoglobin 11.4 and platelets 267, MCV 100.7 Sodium 136 potassium 4.1 chloride 112 bicarb is 16 BUN 34 and creatinine 1.32 lactic acid 0.5 and alk phos 246 albumin 3.2 and urinalysis is negative for infection. Review of Systems Constitutional: Patient denies any fever or chills . No generalized weakness or weight loss. Abdomen: Patient denied nausea vomiting and diarrhea. Patient does complain of abdominal pain. Cardiovascular: Patient denies any chest pain or short of breath no palpitations. Respiratory: patient denied any cough or sputum production. No shortness of breath Neurologic: Patient denied any numbness or tingling. no headache. Musculoskeletal: Patient denies any complaints of joint swelling or deformity. Skin: Negative Psychiatric: Negative Endocrine: No heat or cold intolerance. No recent weight gain. Genitourinary: No dysuria or hematuria. All other 14 point ROS negative except the above Past Medical History Past Medical History: Coronary Artery Disease (CAD), Chest Pain / Angina, COPD, Fibromyalgia, Hyperlipidemia, Hypertension, Myocardial Infarction (GA), Osteoarthritis (OA) Additional Past Medical History / Comment(s): Chronic back pain, DDD, bulging discs, scoliosis, osteoporosis., PAST HX JAW FX RT-CAUSES HEADACHES-TAKES TEGRETOL, abdominal aneurysm Last Myocardial Infarction Date:: 06/29/2020 History of Any Multi-Drug Resistant Organisms: None Reported Past Surgical History: Breast Surgery, Heart Catheterization With Stent, Hysterectomy, Orthopedic Surgery Additional Past Surgical History / Comment(s): Back injections, L patellar surgery, R carpal tunnel release, L breast benign biopsy, sinus surgery, EGD Past Anesthesia/Blood Transfusion Reactions: No Reported Reaction Date of Last Stent Placement:: 05/10/20 Past Psychological History: Anxiety, Depression Additional Psychological History / Comment(s): Pt resides with her daughter. She uses no assistive device. She does not drive, her daughters or public transportation take her to appointments. She manages her own medication. Smoking Status: Current every day smoker Past Alcohol Use History: None Reported Additional Past Alcohol Use History / Comment(s): Pt started smoking in 1967 and is a 1ppd smoker. Past Drug Use History: None Reported Additional Drug Use History / Comment(s): no additional drug use stated by patient at this time - Past Family History Mother Family Medical History: Cancer Additional Family Medical History / Comment(s): Mother had lupus and TB Father History Unknown: Yes Medications and Allergies Home Medications Medication Instructions Recorded Confirmed Type traZODone HCL 150 mg PO HS 30 Days tablet 04/17/22 06/28/24 Rx Omeprazole 40 mg PO DAILY 10/17/22 06/28/24 History Famotidine [Pepcid] 20 mg PO HS PRN 12/23/22 06/28/24 History Sertraline [Zoloft] 150 mg PO DAILY 12/23/22 06/28/24 History Cyclobenzaprine [Flexeril] 5 mg PO TID PRN 06/14/24 06/28/24 History Dicyclomine [Bentyl] 10 mg PO AC-TID 06/14/24 06/28/24 History Aspirin 81 mg PO DAILY #30 tab 06/17/24 06/28/24 Rx Atorvastatin [Lipitor] 40 mg PO HS #30 tab 06/17/24 06/28/24 Rx HYDROcodone/APAP 5-325MG [[place] 1 tab PO BID PRN 30 Days #60 tab 06/17/24 06/28/24 Rx 5-325] Isosorbide Mononitrate ER [Imdur] 30 mg PO DAILY 30 Days #30 tab 06/17/24 06/28/24 Rx Metoprolol Tartrate [Lopressor] 50 mg PO DAILY #30 tab 06/17/24 06/28/24 Rx Ranolazine [Ranexa] 500 mg PO Q12HR 30 Days #60 tab 06/17/24 06/28/24 Rx Allergies Allergy/AdvReac Type Severity Reaction Status Date / Time ibuprofen AdvReac NIGHTMARES Verified 06/28/24 17:46 Iodinated Contrast Media AdvReac Nausea & Verified 06/28/24 17:46 [Iodinated Contrast Media - Vomiting IV Dye] povidone-iodine AdvReac Nausea & Verified 06/28/24 17:46 [From Betadine] Vomiting soap [From Betadine] AdvReac Nausea & Verified 06/28/24 17:46 Vomiting Physical Exam Vitals: Vital Signs Temp Pulse Pulse Resp BP BP Pulse Ox 06/29/24 08:00 98.1 F 99 16 175/96 95 06/29/24 02:00 98.2 F 92 177/85 96 06/29/24 00:47 98.4 F 84 17 173/96 95 06/28/24 21:00 74 18 115/78 98 06/28/24 16:01 64 18 136/74 98 06/28/24 12:58 97.7 F 109 H 20 156/82 94 L Intake and Output 06/28/24 06/29/24 06/29/24 22:59 06:59 14:59 Other: Weight 37.195 kg PHYSICAL EXAMINATION: Patient is lying in the bed comfortably, no acute distress, awake alert and oriented.. HEENT: Normocephalic. Neck is supple. Pupils reactive. Nostrils clear. Oral cavity is moist. Neck reveals no JVD, carotid bruits, or thyromegaly. CHEST EXAMINATION: Trachea is central. Symmetrical expansion. Lung adler clear to auscultation and percussion. CARDIAC: Normal S1, S2 with no gallops. No murmurs ABDOMEN: Soft. Bowel sounds present, mild left lower quadrant tenderness. No organomegaly. No abdominal bruits. Extremities: reveal no edema. No clubbing or cyanosis Neurologically awake, alert, oriented x3 with well-coordinated movements. No focal deficits noted Skin: No rash or skin lesions. Psychiatric: Coperative. Nonsuicidal Musculoskeletal: No joint swelling or deformity. Normal range of motion. Results CBC & Chem 7: 06/29/24 03:58 06/29/24 03:58 Labs: Abnormal Lab Results - Last 24 Hours (Table) 06/28/24 06/28/24 06/28/24 Range/Units 14:06 14:06 14:06 WBC 11.0 H (3.8-10.6) k/uL RBC 3.50 L (3.80-5.40) m/uL Hgb (11.4-16.0) gm/dL Hct (34.0-46.0) % MCV 100.7 H (80.0-100.0) fL Neutrophils # 8.7 H (1.3-7.7) k/uL Lymphocytes # (1.0-4.8) k/uL Sodium 136 L (137-145) mmol/L Chloride 112 H (98-107) mmol/L Carbon Dioxide 16 L (22-30) mmol/L BUN 34 H (7-17) mg/dL Creatinine 1.32 H (0.52-1.04) mg/dL Glucose (74-99) mg/dL Plasma Lactic Acid Chauncey 0.5 L (0.7-2.0) mmol/L Alkaline Phosphatase 246 H (38-126) U/L Total Protein 5.7 L (6.3-8.2) g/dL Albumin 3.2 L (3.5-5.0) g/dL Urine Protein (Negative) Urine Blood (Negative) Ur Leukocyte Esterase (Negative) Urine Mucus (None) /hpf 06/28/24 06/29/24 06/29/24 Range/Units 19:37 03:58 03:58 WBC (3.8-10.6) k/uL RBC 3.19 L (3.80-5.40) m/uL Hgb 10.6 L (11.4-16.0) gm/dL Hct 32.0 L (34.0-46.0) % MCV 100.3 H (80.0-100.0) fL Neutrophils # (1.3-7.7) k/uL Lymphocytes # 0.6 L (1.0-4.8) k/uL Sodium (137-145) mmol/L Chloride 110 H (98-107) mmol/L Carbon Dioxide 19 L (22-30) mmol/L BUN 19 H (7-17) mg/dL Creatinine 1.05 H (0.52-1.04) mg/dL Glucose 157 H (74-99) mg/dL Plasma Lactic Acid Chauncey (0.7-2.0) mmol/L Alkaline Phosphatase (38-126) U/L Total Protein (6.3-8.2) g/dL Albumin (3.5-5.0) g/dL Urine Protein Trace H (Negative) Urine Blood Trace H (Negative) Ur Leukocyte Esterase Small H (Negative) Urine Mucus Rare H (None) /hpf Thrombosis Risk Factor Assmnt - DVT/VTE Prophylaxis DVT/VTE Prophylaxis: Pharmacologic Prophylaxis ordered - Choose All That Apply Any of the Below Risk Factors Present?: Yes Each Factor Represents 1 point: Abnormal pulmonary function (COPD) Other Risk Factors: Yes Each Risk Factor Represents 2 Points: Age 61-74 years Thrombosis Risk Factor Assessment Total Risk Factor Score: 3 Thrombosis Risk Factor Assessment Level: Moderate Risk Assessment and Plan Assessment: Abdominal pain likely due to colitis. CT showed infectious/inflammatory changes in the descending and sigmoid colon. Acute kidney injury likely vasomotor nephropathy. Hypovolemic hyponatremia Folate deficiency with macrocytosis Coronary with history of stent placement Hypertension Fibromyalgia Hyperlipidemia Osteoarthritis Chronic back pain/degenerative disease cholelithiasis Abdominal aortic aneurysm. Stable from previous study as per CT Anxiety/depression Currently everyday smoker DVT prophylax with heparin subcu Plan: Patient will be continued on IV hydration with normal saline. Continue antibiotics ceftriaxone and Flagyl. Cardiac pain management. Closely. Continue with home medications including aspirin statin, metoprolol and Ranexa. Advance oral diet as tolerated. Follow-up closely. Time with Patient: Greater than 30
[2024-06-30 08:52] LABS: Basophils # (A) 0.02 X 10*3/uL (0.00-0.10); Basophils % (A) 0.2 %; Eosinophils # (A) 0.01 X 10*3/uL (0.04-0.35); Eosinophils % (A) 0.1 %; HCT 28.4 % (37.2-46.3); HGB 9.3 g/dL (12.0-15.0); Lymphocytes # (A) 1.28 X 10*3/uL (0.90-5.00); Lymphocytes % (A) 11.9 %; MCH 33.1 pg (27.0-32.0); MCHC 32.7 g/dL (32.0-37.0); MCV 101.1 FL (80.0-97.0); Monocytes # (A) 0.67 X 10*3/uL (0.20-1.00); Monocytes % (A) 6.2 %; NRBC Per 100 WBC 0 X 10*3/uL (0.00-0.01); Neutrophils % (A) 80.9 %; Platelet Count 255 X 10*3/uL (140-440); RBC 2.81 X 10*6/uL (4.10-5.20); RDW 14.2 % (11.5-14.5); WBC 10.76 X 10*3/uL (4.50-10.00)
[2024-06-30 09:02] LABS: Blood Urea Nitrogen 19.1 mg/dL (9.0-27.0); Carbon Dioxide 21.4 mmol/L (21.6-31.8); Chloride 108 mmol/L (96-109); Glucose 123 mg/dL (70-110); Potassium 3.5 mmol/L (3.5-5.5); Sodium 140 mmol/L (135-145)
[2024-06-30 09:03] LABS: Calcium 8.2 mg/dL (8.7-10.3)
[2024-06-30] MEDS: FOLIC ACID 1 MG TAB PO SCH (10:06)
--- NOTE | 2024-06-30 10:31 | P.GSCN ---
History of Present Illness Consult date: 06/30/24 Reason for Consult: Mural thrombus, infrarenal aorta Requesting physician: James Tucker History of present illness: This a pleasant 69-year-old female with a history of known abdominal aortic aneurysm, coronary artery disease status post stenting, COPD, fibromyalgia, hyperlipidemia, hypertension, degenerative disc disease and daily smoker who presented to the emergency department with complaints of lower abdominal pain, diarrhea and vomiting. She had a CT of the abdomen pelvis with contrast that reported mild aneurysm of aorta and mild mural thrombus and a 3.6 cm infrarenal abdominal aortic aneurysm with moderate mural thrombus, therefore vascular surgery was consulted. Patient states that she follows with Dr. Diza for her AAA. States abdominal pain has resolved, as well as diarrhea and nausea. She denies any upper abdominal pain no pain radiating into her back, states she always has shortness of breath and no reported chest pain. Review of Systems A 14 point review systems was completed all pertinent positives and negatives as stated in the HPI. Past Medical History Past Medical History: Coronary Artery Disease (CAD), Chest Pain / Angina, COPD, Fibromyalgia, Hyperlipidemia, Hypertension, Myocardial Infarction (MD), Osteo arthritis (OA) Additional Past Medical History / Comment(s): Chronic back pain, DDD, bulging discs, scoliosis, osteoporosis., PAST HX JAW FX RT-CAUSES HEADACHES-TAKES TEGRETOL, abdominal aneurysm Last Myocardial Infarction Date:: 06/29/2020 History of Any Multi-Drug Resistant Organisms: None Reported Past Surgical History: Breast Surgery, Heart Catheterization With Stent, Hysterectomy, Orthopedic Surgery Additional Past Surgical History / Comment(s): Back injections, L patellar surgery, R carpal tunnel release, L breast benign biopsy, sinus surgery, EGD Past Anesthesia/Blood Transfusion Reactions: No Reported Reaction Date of Last Stent Placement:: 05/10/20 Past Psychological History: Anxiety, Depression Additional Psychological History / Comment(s): Pt resides with her daughter. She uses no assistive device. She does not drive, her daughters or public transportation take her to appointments. She manages her own medication. Smoking Status: Current every day smoker Past Alcohol Use History: None Reported Additional Past Alcohol Use History / Comment(s): Pt started smoking in 1967 and is a 1ppd smoker. Past Drug Use History: None Reported Additional Drug Use History / Comment(s): no additional drug use stated by patient at this time - Past Family History Mother Family Medical History: Cancer Additional Family Medical History / Comment(s): Mother had lupus and TB Father History Unknown: Yes Medications and Allergies Home Medications Medication Instructions Recorded Confirmed Type traZODone HCL 150 mg PO HS 30 Days tablet 04/17/22 06/28/24 Rx Omeprazole 40 mg PO DAILY 10/17/22 06/28/24 History Famotidine [Pepcid] 20 mg PO HS PRN 12/23/22 06/28/24 History Sertraline [Zoloft] 150 mg PO DAILY 12/23/22 06/28/24 History Cyclobenzaprine [Flexeril] 5 mg PO TID PRN 06/14/24 06/28/24 History Dicyclomine [Bentyl] 10 mg PO AC-TID 06/14/24 06/28/24 History Aspirin 81 mg PO DAILY #30 tab 06/17/24 06/28/24 Rx Atorvastatin [Lipitor] 40 mg PO HS #30 tab 06/17/24 06/28/24 Rx HYDROcodone/APAP 5-325MG [[place] 1 tab PO BID PRN 30 Days #60 tab 06/17/24 Rx 5-325] Isosorbide Mononitrate ER [Imdur] 30 mg PO DAILY 30 Days #30 tab 06/17/24 Rx Metoprolol Tartrate [Lopressor] 50 mg PO DAILY #30 tab 06/17/24 06/28/24 Rx Ranolazine [Ranexa] 500 mg PO Q12HR 30 Days #60 tab 06/17/24 06/28/24 Rx Allergies Allergy/AdvReac Type Severity Reaction Status Date / Time ibuprofen AdvReac NIGHTMARES Verified 06/28/24 17:46 Iodinated Contrast Media AdvReac Nausea & Verified 06/28/24 17:46 [Iodinated Contrast Media - Vomiting IV Dye] povidone-iodine AdvReac Nausea & Verified 06/28/24 17:46 [From Betadine] Vomiting soap [From Betadine] AdvReac Nausea & Verified 06/28/24 17:46 Vomiting Surgical - Exam Vital Signs Temp Pulse Resp BP Pulse Ox 97.7 F 109 H 20 156/82 94 L 06/28/24 12:58 06/28/24 12:58 06/28/24 12:58 06/28/24 12:58 06/28/24 12:58 General appearance: The patient is alert, oriented, appears in no acute distress. HET: Head is normocephalic and atraumatic. Neck: Supple. Heart: Regular. Lungs: Equal expansion, normal respiratory effort. Abdomen: Soft, lower abdominal tenderness, nondistended. Extremities: Normal skin color and turgor. Neurological: No focal deficits. Results - Labs 06/30/24 02:58 06/30/24 02:58 Abnormal Lab Results - Last 24 Hours (Table) 06/30/24 06/30/24 Range/Units 02:58 02:58 WBC 10.76 H (4.50-10.00) X 10*3/uL RBC 2.81 L (4.10-5.20) X 10*6/uL Hgb 9.3 L (12.0-15.0) g/dL Hct 28.4 L (37.2-46.3) % MCV 101.1 H (80.0-97.0) FL MCH 33.1 H (27.0-32.0) pg Immature Gran # 0.08 H (0.00-0.04) X 10*3/uL Neutrophils # 8.70 H (1.80-7.70) X 10*3/uL Eosinophils # 0.01 L (0.04-0.35) X 10*3/uL Carbon Dioxide 21.4 L (21.6-31.8) mmol/L Glucose 123 H (70-110) mg/dL Calcium 8.2 L (8.7-10.3) mg/dL Diabetes panel 06/30/24 Range/Units 02:58 Sodium 140 (135-145) mmol/L Potassium 3.5 (3.5-5.5) mmol/L Chloride 108 (96-109) mmol/L Carbon Dioxide 21.4 L (21.6-31.8) mmol/L BUN 19.1 (9.0-27.0) mg/dL Creatinine 1.0 (0.6-1.5) mg/dL Glucose 123 H (70-110) mg/dL Calcium 8.2 L (8.7-10.3) mg/dL Calcium panel 06/30/24 Range/Units 02:58 Calcium 8.2 L (8.7-10.3) mg/dL Pituitary panel 06/30/24 Range/Units 02:58 Sodium 140 (135-145) mmol/L Potassium 3.5 (3.5-5.5) mmol/L Chloride 108 (96-109) mmol/L Carbon Dioxide 21.4 L (21.6-31.8) mmol/L BUN 19.1 (9.0-27.0) mg/dL Creatinine 1.0 (0.6-1.5) mg/dL Glucose 123 H (70-110) mg/dL Calcium 8.2 L (8.7-10.3) mg/dL Adrenal panel 06/30/24 Range/Units 02:58 Sodium 140 (135-145) mmol/L Potassium 3.5 (3.5-5.5) mmol/L Chloride 108 (96-109) mmol/L Carbon Dioxide 21.4 L (21.6-31.8) mmol/L BUN 19.1 (9.0-27.0) mg/dL Creatinine 1.0 (0.6-1.5) mg/dL Glucose 123 H (70-110) mg/dL Calcium 8.2 L (8.7-10.3) mg/dL - Imaging Comments: CT abdomen pelvis with contrast reports infectious/inflammatory changes in the descending and sigmoid colon. No bowel obstruction, abdominal abscess, free air or free fluid. Findings similar to that seen on prior study of 02/07/2023. Stable supra and infrarenal abdominal aortic aneurysm. CT abdomen pelvis independently reviewed by Dr. Loving and compared to previous CT from 2022, appears thrombus part of aneurysm and no indication for any s urgical intervention. Assessment and Plan Assessment: 1. 3.6 cm infrarenal abdominal aortic aneurysm, asymptomatic. Known, follows with Dr. Alex. 2. Abdominal pain with CT evidence of infectious/inflammatory changes of the descending and sigmoid colon 3. Nausea, vomiting and diarrhea, resolved 4. Coronary artery disease status post stent 5. COPD 6. Smoker Plan: CT abdomen pelvis reviewed. There is no indication for any vascular surgical intervention. Recommend outpatient follow-up with vascular surgery for AAA surveillance. Patient currently follows with Dr. Alex and she states he has been monitoring. Recommend smoking cessation, this was discussed with patient. Thank you for this consultation, we will sign off at this time. The impression and plan of care has been dictated as directed. Dr. Loving I performed a history and examination of this patient, discussed the same with the dictator. I agree with the dictator's note ,documented as a scribe. Any additional findings or plans will be noted.
[2024-06-30] MEDS: amLODIPine 5 MG TAB PO SCH (10:55)
[2024-06-30] MEDS: HYDROcodone/APAP 5-325MG 1 EACH TAB PO PRN (10:55)
[2024-06-30] MEDS: POTASSIUM CHLORIDE ER 20 MEQ TAB.ER PO STA (10:55)
[2024-07-01] MEDS: KETOROLAC 15 MG/ML 1 ML VIAL IVP STA (00:41)
[2024-07-01 08:27] LABS: Basophils # (A) 0.03 X 10*3/uL (0.00-0.10); Basophils % (A) 0.3 %; Eosinophils # (A) 0.21 X 10*3/uL (0.04-0.35); Eosinophils % (A) 2.1 %; HCT 29.7 % (37.2-46.3); HGB 9.8 g/dL (12.0-15.0); Lymphocytes # (A) 2.84 X 10*3/uL (0.90-5.00); Lymphocytes % (A) 28.8 %; MCH 32.7 pg (27.0-32.0); Mean Platelet Volume 10.7 FL (9.5-12.2); Monocytes # (A) 0.61 X 10*3/uL (0.20-1.00); Monocytes % (A) 6.2 %; NRBC Per 100 WBC 0 X 10*3/uL (0.00-0.01); Neutrophils # (A) 6.08 X 10*3/uL (1.80-7.70); Neutrophils % (A) 61.7 %; Platelet Count 274 X 10*3/uL (140-440); RDW 14.1 % (11.5-14.5); WBC 9.86 X 10*3/uL (4.50-10.00)
[2024-07-01 08:40] LABS: Blood Urea Nitrogen 20.4 mg/dL (9.0-27.0); Calcium 8.4 mg/dL (8.7-10.3); Carbon Dioxide 22.7 mmol/L (21.6-31.8); Chloride 108 mmol/L (96-109); Glucose 104 mg/dL (70-110); Potassium 3.9 mmol/L (3.5-5.5); Sodium 141 mmol/L (135-145)
--- NOTE | 2024-07-01 11:40 | P.PN ---
Subjective Progress Note Date: 06/30/24 Patient is a 69-year-old female with a past medical history of coronary disease stent placement, hypertension, hyperlipidemia, fibromyalgia, history of [place], osteoarthritis, scoliosis, anxiety/depression and currently everyday smoker. Patient presents to ER with complaints of abdominal pain mainly mid abdomen and able to tolerate oral diet. Patient has been having symptoms for the past 4 days. Denied any fever or chills. No cough or sputum production. Patient had a prior colonoscopy about 4 years ago. Denies any recent illnesses. Does have nausea and episodes of vomiting. He did have loose stools previously. Denied any hematemesis or melena. CT of abdominal/pelvis in the ER showed infectious/inflammatory changes in the descending and sigmoid colon. No bowel obstruction., Abdominal abscess, free air are free-flowing. Findings similar to that seen on prior study of 02/07/2023. Stable supra and infrarenal abdominal aortic aneurysm EKG showed sinus tachycardia. Laboratory data showed WBC 11.0 hemoglobin 11.4 and platelets 267, MCV 100.7 Sodium 136 potassium 4.1 chloride 112 bicarb is 16 BUN 34 and creatinine 1.32 lactic acid 0.5 and alk phos 246 albumin 3.2 and urinalysis is negative for infection. 06/30/2024 Patient is lying in the bed. Awake alert and oriented x 3. Still complains of abdominal pain. No episodes of nausea or vomiting. Denied any having bowel meant today. No cough or sputum production. Patient was seen by general surgery and CT of the abdomen pelvis was reviewed. Recommend outpatient follow-up with vascular surgery for AAA surveillance. Laboratory data showed WBC 10.7 hemoglobin 9.3 and platelets 255 sodium 140 potassium 3.5 chloride 108 bicarb is 21.4 BUN 19.1 and creatinine 1.0 and blood sugar 123. Patient is tolerating oral diet. Current medications reviewed. Objective - Vital Signs Vital signs: Vital Signs Temp 97.8 F 06/30/24 14:00 Pulse 92 06/30/24 21:44 Resp 15 06/30/24 14:00 BP 120/69 06/30/24 14:00 Pulse Ox 90 L 06/30/24 14:00 FiO2 Intake & Output 06/30/24 06/30/24 07/01/24 06:59 18:59 06:59 Other: Voiding Method Toilet # Voids 2 4 - Exam PHYSICAL EXAMINATION: Patient is lying in the bed comfortably, no acute distress, awake alert and oriented.. HEENT: Normocephalic. Neck is supple. Pupils reactive. Nostrils clear. Oral cavity is moist. Neck reveals no JVD, carotid bruits, or thyromegaly. CHEST EXAMINATION: Trachea is central. Symmetrical expansion. Lung adler clear to auscultation and percussion. CARDIAC: Normal S1, S2 with no gallops. No murmurs ABDOMEN: Soft. Bowel sounds present, mild left lower abdominal tenderness. No organomegaly. No abdominal bruits. Extremities: reveal no edema. No clubbing or cyanosis Neurologically awake, alert, oriented x3 with well-coordinated movements. No focal deficits noted Skin: No rash or skin lesions. Psychiatric: Coperative. Nonsuicidal Musculoskeletal: No joint swelling or deformity. Normal range of motion. - Labs CBC & Chem 7: 07/02/24 05:38 07/02/24 05:38 Labs: Abnormal Lab Results - Last 24 Hours (Table) 06/30/24 06/30/24 Range/Units 02:58 02:58 WBC 10.76 H (4.50-10.00) X 10*3/uL RBC 2.81 L (4.10-5.20) X 10*6/uL Hgb 9.3 L (12.0-15.0) g/dL Hct 28.4 L (37.2-46.3) % MCV 101.1 H (80.0-97.0) FL MCH 33.1 H (27.0-32.0) pg Immature Gran # 0.08 H (0.00-0.04) X 10*3/uL Neutrophils # 8.70 H (1.80-7.70) X 10*3/uL Eosinophils # 0.01 L (0.04-0.35) X 10*3/uL Carbon Dioxide 21.4 L (21.6-31.8) mmol/L Glucose 123 H (70-110) mg/dL Calcium 8.2 L (8.7-10.3) mg/dL Assessment and Plan Assessment: Abdominal pain likely due to colitis. CT showed infectious/inflammatory changes in the descending and sigmoid colon. Acute kidney injury likely vasomotor nephropathy. Hypovolemic hyponatremia Folate deficiency with macrocytosis Coronary with history of stent placement Hypertension Fibromyalgia Hyperlipidemia Osteoarthritis Chronic back pain/degenerative disease cholelithiasis Abdominal aortic aneurysm. Stable from previous study as per CT Anxiety/depression Currently everyday smoker DVT prophylax with heparin subcu Plan: Patient will be continued on antibiotics ceftriaxone and Flagyl. Tolerating oral diet. Advance as tolerated. IV fluids on hold. Continue with pain management. Continue with home medications including aspirin statin, metoprolol and Ranexa. Patient was seen by vascular surgery due to possible intramural thrombus in the abdominal aortic aneurysm. Recommends outpatient follow-up for surveillance. Advance oral diet as tolerated. Follow-up closely. Time with Patient: Greater than 30
--- NOTE | 2024-07-01 12:01 | P.PN ---
Subjective Progress Note Date: 07/01/24 Principal diagnosis: Abdominal pain Patient is seen and examined today as a follow-up. She states she still has abdominal pain in her lower abdomen. No further diarrhea nausea or vomiting. Tolerating a regular diet. No pain in mid abdomen or radiating to her back. Objective - Vital Signs Vital signs: Vital Signs Temp 98.6 F 07/01/24 07:04 Pulse 80 07/01/24 07:58 Resp 18 07/01/24 07:04 BP 149/82 07/01/24 07:04 Pulse Ox 92 L 07/01/24 07:04 FiO2 Intake & Output 06/30/24 07/01/24 07/01/24 18:59 06:59 18:59 Other: Voiding Method Toilet # Voids 4 2 - Exam General appearance: The patient is alert, oriented, appears in no acute distress. HET: Head is normocephalic and atraumatic. Neck: Supple. Heart: Regular. Lungs: Equal expansion, normal respiratory effort. Abdomen: Soft, held lower abdominal tenderness, nondistended. Extremities: Normal skin color and turgor. Neurological: Alert and oriented. - Labs CBC & Chem 7: 07/01/24 03:58 07/01/24 03:58 Labs: Abnormal Lab Results - Last 24 Hours (Table) 06/30/24 07/01/24 07/01/24 Range/Units 02:58 03:58 03:58 RBC 3.00 L (4.10-5.20) X 10*6/uL Hgb 9.8 L (12.0-15.0) g/dL Hct 29.7 L (37.2-46.3) % MCV 99.0 H (80.0-97.0) FL MCH 32.7 H (27.0-32.0) pg Immature Gran # 0.09 H (0.00-0.04) X 10*3/uL Carbon Dioxide 21.4 L (21.6-31.8) mmol/L BUN/Creatinine Ratio 20.40 H (12.00-20.00) Ratio Glucose 123 H (70-110) mg/dL Calcium 8.2 L 8.4 L (8.7-10.3) mg/dL Assessment and Plan Assessment: 1. 3.6 cm infrarenal abdominal aortic aneurysm, asymptomatic. Known, follows with Dr. Alex. 2. Abdominal pain with CT evidence of infectious/inflammatory changes of the descending and sigmoid colon 3. Nausea, vomiting and diarrhea, resolved 4. Coronary artery disease status post stent 5. COPD 6. Smoker Plan: CT abdomen pelvis reviewed. There is no indication for any vascular surgical intervention. Recommend outpatient follow-up with vascular surgery for AAA surveillance. Patient currently follows with Dr. Alex and she states he has been monitoring. Recommend smoking cessation, this was discussed with patient. Thank you for this consultation, we will sign off at this time. The impression and plan of care has been dictated as directed. Dr. Loving I performed a history and examination of this patient, discussed the same with the dictator. I agree with the dictator's note ,documented as a scribe. Any additional findings or plans will be noted.
[2024-07-02] MEDS: ONDANSETRON 4 MG/2 ML VIAL IVP PRN (06:09)
[2024-07-02 08:41] LABS: BUN/Creat Ratio 17.55 Ratio (12.00-20.00); Blood Urea Nitrogen 19.3 mg/dL (9.0-27.0); Calcium 9.3 mg/dL (8.7-10.3); Carbon Dioxide 27.7 mmol/L (21.6-31.8); Chloride 101 mmol/L (96-109); Glucose 102 mg/dL (70-110); Potassium 4.2 mmol/L (3.5-5.5); Sodium 140 mmol/L (135-145)
[2024-07-02 09:20] LABS: HCT 33.7 % (37.2-46.3); HGB 11.3 g/dL (12.0-15.0); MCH 32.7 pg (27.0-32.0); MCHC 33.5 g/dL (32.0-37.0); MCV 97.4 FL (80.0-97.0); Mean Platelet Volume 10.3 FL (9.5-12.2); NRBC Per 100 WBC 0.04 X 10*3/uL (0.00-0.01); Platelet Count 336 X 10*3/uL (140-440); RBC 3.46 X 10*6/uL (4.10-5.20); RDW 14.3 % (11.5-14.5); WBC 10.41 X 10*3/uL (4.50-10.00)
[2024-07-02 10:05] LABS: Basophils # (A) 0.07 X 10*3/uL (0.00-0.10); Basophils % (A) 0.7 %; Eosinophils # (A) 0.65 X 10*3/uL (0.04-0.35); Eosinophils % (A) 6.2 %; Lymphocytes % (A) 34.6 %; Monocytes # (A) 1.01 X 10*3/uL (0.20-1.00); Monocytes % (A) 9.7 %; Neutrophils # (A) 4.79 X 10*3/uL (1.80-7.70); RBC Morphology Normal (Normal)
--- NOTE | 2024-07-02 11:56 | P.PN ---
Subjective Progress Note Date: 07/01/24 Patient is a 69-year-old female with a past medical history of coronary disease stent placement, hypertension, hyperlipidemia, fibromyalgia, history of [place], osteoarthritis, scoliosis, anxiety/depression and currently everyday smoker. Patient presents to ER with complaints of abdominal pain mainly mid abdomen and able to tolerate oral diet. Patient has been having symptoms for the past 4 days. Denied any fever or chills. No cough or sputum production. Patient had a prior colonoscopy about 4 years ago. Denies any recent illnesses. Does have nausea and episodes of vomiting. He did have loose stools previously. Denied any hematemesis or melena. CT of abdominal/pelvis in the ER showed infectious/inflammatory changes in the descending and sigmoid colon. No bowel obstruction., Abdominal abscess, free air are free-flowing. Findings similar to that seen on prior study of 02/07/2023. Stable supra and infrarenal abdominal aortic aneurysm EKG showed sinus tachycardia. Laboratory data showed WBC 11.0 hemoglobin 11.4 and platelets 267, MCV 100.7 Sodium 136 potassium 4.1 chloride 112 bicarb is 16 BUN 34 and creatinine 1.32 lactic acid 0.5 and alk phos 246 albumin 3.2 and urinalysis is negative for infection. 06/30/2024 Patient is lying in the bed. Awake alert and oriented x 3. Still complains of abdominal pain. No episodes of nausea or vomiting. Denied any having bowel meant today. No cough or sputum production. Patient was seen by general surgery and CT of the abdomen pelvis was reviewed. Recommend outpatient follow-up with vascular surgery for AAA surveillance. Laboratory data showed WBC 10.7 hemoglobin 9.3 and platelets 255 sodium 140 potassium 3.5 chloride 108 bicarb is 21.4 BUN 19.1 and creatinine 1.0 and blood sugar 123. Patient is tolerating oral diet. 07/01/2024 Patient is currently sitting in the bed. Awake alert and oriented x 3. Did have a bowel meant. Denied any dark-colored stools. No nausea or vomiting. Tolerating oral diet. Otherwise pain did improved compared to yesterday. Feels slightly better. No complaints of fever. No headache or dizziness or lightheadedness. No chest pain or shortness of breath. Denies any dysuria or hematuria. WBC came back to normal level. Other laboratory data reviewed. Anticipate discharge in next 24 to 48 hours with more clinical improvement. Patient is maintained on antibiotics ceftriaxone and Flagyl. Current medications reviewed. Objective - Vital Signs Vital signs: Vital Signs Temp 97.8 F 07/01/24 14:57 Pulse 80 07/01/24 15:25 Resp 18 07/01/24 14:57 BP 137/78 07/01/24 14:57 Pulse Ox 92 L 07/01/24 14:57 FiO2 Intake & Output 07/01/24 07/01/24 07/02/24 06:59 18:59 06:59 Other: Voiding Method Toilet # Voids 2 4 # Bowel Movements 1 - Exam PHYSICAL EXAMINATION: Patient is lying in the bed comfortably, no acute distress, awake alert and or iented.. HEENT: Normocephalic. Neck is supple. Pupils reactive. Nostrils clear. Oral cavity is moist. Neck reveals no JVD, carotid bruits, or thyromegaly. CHEST EXAMINATION: Trachea is central. Symmetrical expansion. Lung adler clear to auscultation and percussion. CARDIAC: Normal S1, S2 with no gallops. No murmurs ABDOMEN: Soft. Bowel sounds present, mild left lower abdominal tenderness. No organomegaly. No abdominal bruits. Extremities: reveal no edema. No clubbing or cyanosis Neurologically awake, alert, oriented x3 with well-coordinated movements. No focal deficits noted Skin: No rash or skin lesions. Psychiatric: Coperative. Nonsuicidal Musculoskeletal: No joint swelling or deformity. Normal range of motion. - Labs CBC & Chem 7: 07/02/24 05:38 07/02/24 05:38 Labs: Abnormal Lab Results - Last 24 Hours (Table) 07/01/24 07/01/24 Range/Units 03:58 03:58 RBC 3.00 L (4.10-5.20) X 10*6/uL Hgb 9.8 L (12.0-15.0) g/dL Hct 29.7 L (37.2-46.3) % MCV 99.0 H (80.0-97.0) FL MCH 32.7 H (27.0-32.0) pg Immature Gran # 0.09 H (0.00-0.04) X 10*3/uL BUN/Creatinine Ratio 20.40 H (12.00-20.00) Ratio Calcium 8.4 L (8.7-10.3) mg/dL Assessment and Plan Assessment: Abdominal pain likely due to colitis. CT showed infectious/inflammatory changes in the descending and sigmoid colon. Acute kidney injury likely vasomotor nephropathy. Hypovolemic hyponatremia. Improved Folate deficiency with macrocytosis Coronary with history of stent placement Hypertension Fibromyalgia Hyperlipidemia Osteoarthritis Chronic back pain/degenerative disease cholelithiasis Abdominal aortic aneurysm. Stable from previous study as per CT Anxiety/depression Currently everyday smoker DVT prophylax with heparin subcu Plan: Patient will be continued on antibiotics ceftriaxone and Flagyl. Tolerating oral diet. Advance as tolerated. IV fluids on hold. Continue with pain management. Continue with home medications including aspirin statin, metoprolol and Ranexa. Patient was seen by vascular surgery due to possible intramural thrombus in the abdominal aortic aneurysm. Recommends outpatient follow-up for surveillance. Advance oral diet as tolerated. Follow-up closely. Time with Patient: Greater than 30
[2024-07-02] MEDS: NYSTATIN 100,000 UNIT/ML SUSP 500,000 UNIT/5 ML CUP PO SCH (18:35)
--- NOTE | 2024-07-03 00:30 | P.PN ---
Subjective Progress Note Date: 07/02/24 Patient is a 69-year-old female with a past medical history of coronary disease stent placement, hypertension, hyperlipidemia, fibromyalgia, history of [place], osteoarthritis, scoliosis, anxiety/depression and currently everyday smoker. Patient presents to ER with complaints of abdominal pain mainly mid abdomen and able to tolerate oral diet. Patient has been having symptoms for the past 4 days. Denied any fever or chills. No cough or sputum production. Patient had a prior colonoscopy about 4 years ago. Denies any recent illnesses. Does have nausea and episodes of vomiting. He did have loose stools previously. Denied any hematemesis or melena. CT of abdominal/pelvis in the ER showed infectious/inflammatory changes in the descending and sigmoid colon. No bowel obstruction., Abdominal abscess, free air are free-flowing. Findings similar to that seen on prior study of 02/07/2023. Stable supra and infrarenal abdominal aortic aneurysm EKG showed sinus tachycardia. Laboratory data showed WBC 11.0 hemoglobin 11.4 and platelets 267, MCV 100.7 Sodium 136 potassium 4.1 chloride 112 bicarb is 16 BUN 34 and creatinine 1.32 lactic acid 0.5 and alk phos 246 albumin 3.2 and urinalysis is negative for infection. 06/30/2024 Patient is lying in the bed. Awake alert and oriented x 3. Still complains of abdominal pain. No episodes of nausea or vomiting. Denied any having bowel meant today. No cough or sputum production. Patient was seen by general surgery and CT of the abdomen pelvis was reviewed. Recommend outpatient follow-up with vascular surgery for AAA surveillance. Laboratory data showed WBC 10.7 hemoglobin 9.3 and platelets 255 sodium 140 potassium 3.5 chloride 108 bicarb is 21.4 BUN 19.1 and creatinine 1.0 and blood sugar 123. Patient is tolerating oral diet. 07/01/2024 Patient is currently sitting in the bed. Awake alert and oriented x 3. Did have a bowel meant. Denied any dark-colored stools. No nausea or vomiting. Tolerating oral diet. Otherwise pain did improved compared to yesterday. Feels slightly better. No complaints of fever. No headache or dizziness or lightheadedness. No chest pain or shortness of breath. Denies any dysuria or hematuria. WBC came back to normal level. Other laboratory data reviewed. Anticipate discharge in next 24 to 48 hours with more clinical improvement. Patient is maintained on antibiotics ceftriaxone and Flagyl. 07/02/2024 Patient is lying in the bed. Awake alert and oriented x 3. Still complains of abdominal pain and bloating sensation. Patient did have a bowel movement which is watery. Also complains of nausea. No episodes of vomiting. Denied any hematemesis or melena. Patient has been continued on antibiotics ceftriaxone and Flagyl for colitis. No complaints of chest pain or shortness breath. Laboratory data showed WBC 10.4 hemoglobin 11.3 and platelets 336 sodium 140 potassium 4.2 chloride 101 bi carb is 27.7 BUN 19.3 and creatinine 1.1 Patient will be continued on normal saline at 50 cc/h. Current medications reviewed. Objective - Vital Signs Vital signs: Vital Signs Temp 98.1 F 07/02/24 18:57 Pulse 69 07/02/24 18:57 Resp 18 07/02/24 18:57 BP 144/76 07/02/24 18:57 Pulse Ox 93 L 07/02/24 18:57 FiO2 Intake & Output 07/02/24 07/02/24 07/03/24 06:59 18:59 06:59 Intake Total 1000 Balance 1000 Weight 37.195 kg Intake: Oral 1000 Other: Voiding Method Toilet # Voids 7 3 # Bowel Movements 2 - Exam PHYSICAL EXAMINATION: Patient is lying in the bed comfortably, no acute distress, awake alert and oriented.. HEENT: Normocephalic. Neck is supple. Pupils reactive. Nostrils clear. Oral cavity is moist. Neck reveals no JVD, carotid bruits, or thyromegaly. CHEST EXAMINATION: Trachea is central. Symmetrical expansion. Lung adler clear to auscultation and percussion. CARDIAC: Normal S1, S2 with no gallops. No murmurs ABDOMEN: Soft. Bowel sounds present, mild left lower abdominal tenderness. No organomegaly. No abdominal bruits. Extremities: reveal no edema. No clubbing or cyanosis Neurologically awake, alert, oriented x3 with well-coordinated movements. No focal deficits noted Skin: No rash or skin lesions. Psychiatric: Coperative. Nonsuicidal Musculoskeletal: No joint swelling or deformity. Normal range of motion. - Labs CBC & Chem 7: 07/02/24 05:38 07/02/24 05:38 Labs: Abnormal Lab Results - Last 24 Hours (Table) 07/02/24 07/02/24 Range/Units 05:38 05:38 WBC 10.41 H (4.50-10.00) X 10*3/uL RBC 3.46 L (4.10-5.20) X 10*6/uL Hgb 11.3 L (12.0-15.0) g/dL Hct 33.7 L (37.2-46.3) % MCV 97.4 H (80.0-97.0) FL MCH 32.7 H (27.0-32.0) pg Immature Gran # 0.29 H (0.00-0.04) X 10*3/uL Monocytes # 1.01 H (0.20-1.00) X 10*3/uL Eosinophils # 0.65 H (0.04-0.35) X 10*3/uL NRBC/100 WBC Diff 0.04 H (0.00-0.01) X 10*3/uL Est GFR (CKD-EPI) 54 L (>=60) Assessment and Plan Assessment: Abdominal pain likely due to colitis. CT showed infectious/inflammatory changes in the descending and sigmoid colon. Acute kidney injury likely vasomotor nephropathy. Hypovolemic hyponatremia. Improved Folate deficiency with macrocytosis Coronary with history of stent placement Hypertension Fibromyalgia Hyperlipidemia Osteoarthritis Chronic back pain/degenerative disease cholelithiasis Abdominal aortic aneurysm. Stable from previous study as per CT Anxiety/depression Currently everyday smoker DVT prophylax with heparin subcu Plan: Patient will be continued on antibiotics ceftriaxone and Flagyl. Started back on IV hydration and diet changed to full liquid diet. Continue with pain management. Continue with home medications including aspirin statin, metoprolol and Ranexa. Patient was seen by vascular surgery due to possible intramural thrombus in the abdominal aortic aneurysm. Recommends outpatient follow-up for surveillance. Advance oral diet as tolerated. Patient may need GI evaluation if continues to have symptoms throughout the weekend. Follow-up closely.
[2024-07-03] MEDS: SODIUM CHLORIDE 0.9% 1,000 ML IV SCH (02:06)
[2024-07-03 10:03] LABS: HCT 33.1 % (37.2-46.3); HGB 10.9 g/dL (12.0-15.0); MCH 32.8 pg (27.0-32.0); MCHC 32.9 g/dL (32.0-37.0); MCV 99.7 FL (80.0-97.0); NRBC Per 100 WBC 0.03 X 10*3/uL (0.00-0.01); Platelet Count 329 X 10*3/uL (140-440); RBC 3.32 X 10*6/uL (4.10-5.20); RDW 14.3 % (11.5-14.5); WBC 16.25 X 10*3/uL (4.50-10.00)
[2024-07-03] MEDS: HYDROmorphone 0.5 MG/0.5 ML SYRINGE IVP PRN (11:30)
[2024-07-03 11:39] LABS: BUN/Creat Ratio 14.33 Ratio (12.00-20.00); Blood Urea Nitrogen 17.2 mg/dL (9.0-27.0); Carbon Dioxide 26.1 mmol/L (21.6-31.8); Chloride 101 mmol/L (96-109); Glucose 98 mg/dL (70-110); Potassium 4.5 mmol/L (3.5-5.5); Sodium 139 mmol/L (135-145)
[2024-07-03 11:58] LABS: Basophils # (A) 0.13 X 10*3/uL (0.00-0.10); Basophils % (A) 0.8 %; Eosinophils # (A) 1.66 X 10*3/uL (0.04-0.35); Eosinophils % (A) 10.2 %; Lymphocytes # (A) 4.34 X 10*3/uL (0.90-5.00); Lymphocytes % (A) 26.7 %; Monocytes # (A) 1.29 X 10*3/uL (0.20-1.00); Monocytes % (A) 7.9 %; Neutrophils # (A) 8.25 X 10*3/uL (1.80-7.70); Neutrophils % (A) 50.8 %; Stomatocytes 2+
[2024-07-03] MEDS: CYCLOBENZAPRINE 5 MG TAB PO PRN (13:59)
[2024-07-03] MEDS: PIPERACILLIN-TAZOBACTAM 3.375 GM in SODIUM CHLORIDE 0.9% 100 ML IVPB SCH (13:59)
--- NOTE | 2024-07-03 14:09 | PN ---
PROGRESS NOTE DATE OF SERVICE: 07/03/2024 SUBJECTIVE: This is a 69-year-old woman, who was admitted with possibly colitis, also had multiple medical problems including vasomotor nephropathy, CAD stent, and other medical issues. The patient is apparently confused and was going to other patient's room and eating food and talking to them according to the staff. PAST MEDICAL HISTORY: Reviewed. REVIEW OF SYSTEMS: A 14-point review is negative except as mentioned earlier. CURRENT MEDICATIONS: Reviewed include [place], dose and rest of medications noted. PHYSICAL EXAMINATION: VITAL SIGNS: Pulse 74, blood pressure 109/64, respirations 15. HEENT: Conjunctivae normal. NECK: No JVD. CARDIOVASCULAR: S1, S2. RESPIRATIONS: Breath sounds diminished at the bases. A few scattered rhonchi. ABDOMEN: Soft. LABORATORY DATA: CT scan of the abdomen, inflammatory change in the descending colon. Other labs are noted. ASSESSMENT: 1. Colitis involving the descending colon and sigmoid colon. 2. Acute kidney injury. 3. Change in mental status. 4. Hyponatremia. 5. Multiple complex medical issues. RECOMMENDATIONS AND DISCUSSION: I recommend to continue current management and continue symptomatic treatment. I recommend changing the antibiotics, obtain cultures. Follow the labs. Resume the home medications. Closely follow with Vascular Surgery. Further recommendations to follow. MMODL / IJN: [id number] /
[2024-07-04 09:14] LABS: Basophils # (A) 0.08 X 10*3/uL (0.00-0.10); Basophils % (A) 0.6 %; Eosinophils # (A) 1.49 X 10*3/uL (0.04-0.35); Eosinophils % (A) 11.6 %; HCT 32.3 % (37.2-46.3); HGB 10.2 g/dL (12.0-15.0); Lymphocytes % (A) 24.8 %; MCH 32.2 pg (27.0-32.0); MCHC 31.6 g/dL (32.0-37.0); MCV 101.9 FL (80.0-97.0); Monocytes # (A) 1.11 X 10*3/uL (0.20-1.00); Monocytes % (A) 8.6 %; NRBC Per 100 WBC 0 X 10*3/uL (0.00-0.01); Neutrophils # (A) 6.51 X 10*3/uL (1.80-7.70); Neutrophils % (A) 50.6 %; Platelet Count 315 X 10*3/uL (140-440); RBC 3.17 X 10*6/uL (4.10-5.20); RDW 14.5 % (11.5-14.5); WBC 12.88 X 10*3/uL (4.50-10.00)
[2024-07-04 10:13] LABS: BUN/Creat Ratio 11.83 Ratio (12.00-20.00); Blood Urea Nitrogen 14.2 mg/dL (9.0-27.0); Calcium 8.6 mg/dL (8.7-10.3); Chloride 102 mmol/L (96-109); Glucose 82 mg/dL (70-110); Potassium 4.4 mmol/L (3.5-5.5); Sodium 140 mmol/L (135-145)
--- NOTE | 2024-07-05 03:22 | PN ---
PROGRESS NOTE DATE OF SERVICE: 07/04/2024 SUBJECTIVE: This is a 69-year-old woman, who was admitted with colitis and the abdominal pain is improving significantly. No chest pain. No palpitation. OBJECTIVE: VITAL SIGNS: Pulse is 64, blood pressure 130/70, respirations normal. CHEST: Few scattered rhonchi. ABDOMEN: Soft, mild tenderness. LEGS: No edema. No swelling. NERVOUS SYSTEM: Nonfocal. LABORATORY DATA: WBC 8.88. ASSESSMENT: 1. Acute colitis involving the descending colon, sigmoid colon. 2. Acute kidney injury. 3. Change in mental status. 4. Hyponatremia. 5. Multiple complex medical issues. RECOMMENDATIONS AND DISCUSSION: I recommend to continue current management. Continue symptomatic treatment. Continue the antibiotics. Pain management. Repeat labs. Further recommendations to follow. MMODL / IJN: [id number] /
[2024-07-05 08:46] LABS: BUN/Creat Ratio 6.91 Ratio (12.00-20.00); Blood Urea Nitrogen 7.6 mg/dL (9.0-27.0); Calcium 8.2 mg/dL (8.7-10.3); Carbon Dioxide 25.8 mmol/L (21.6-31.8); Chloride 104 mmol/L (96-109); Glucose 108 mg/dL (70-110); Sodium 139 mmol/L (135-145)
[2024-07-05 08:47] LABS: Basophils # (A) 0.08 X 10*3/uL (0.00-0.10); Basophils % (A) 0.6 %; Eosinophils % (A) 10.8 %; HGB 10.7 g/dL (12.0-15.0); Lymphocytes # (A) 2.73 X 10*3/uL (0.90-5.00); Lymphocytes % (A) 21.1 %; MCH 32.7 pg (27.0-32.0); MCHC 32.4 g/dL (32.0-37.0); MCV 100.9 FL (80.0-97.0); Monocytes # (A) 1.14 X 10*3/uL (0.20-1.00); Monocytes % (A) 8.8 %; NRBC Per 100 WBC 0 X 10*3/uL (0.00-0.01); Neutrophils % (A) 56.4 %; Platelet Count 337 X 10*3/uL (140-440); RBC 3.27 X 10*6/uL (4.10-5.20); RDW 14.6 % (11.5-14.5); WBC 12.95 X 10*3/uL (4.50-10.00)
[2024-07-05] MEDS ORDERED: NALOXONE 0.4 MG/ML 1 ML VIAL IV PRN (12:01)
[2024-07-05] MEDS: LOPERAMIDE 2 MG CAP PO STA (14:46)
[2024-07-05] MEDS: CHOLESTYRAMINE (WITH SUGAR) 4 GM PACKET PO SCH (15:20)
--- NOTE | 2024-07-05 16:10 | XR ---
EXAMINATION TYPE: XR chest 1V portable DATE OF EXAM: 07/05/2024 Comparison: 06/14/2024 Clinical History: 69-year-old female shortness of breath Findings: Heart normal size. Mild atherosclerotic arch calcifications. Calcified granuloma left suprahilar [place] on. Some stringy atelectasis at the left base. No consolidation or pleural effusion. Mild hyperinflat ion. Impression: Hyperinflation may relate to depth of inspiration or underlying emphysema. No definite acute process otherwise seen. [facility], , 07/05/2024 4:08 PM
--- NOTE | 2024-07-06 00:13 | P.PN ---
Subjective Progress Note Date: 07/05/24 Patient is a 69-year-old female with a past medical history of coronary disease stent placement, hypertension, hyperlipidemia, fibromyalgia, history of [place], osteoarthritis, scoliosis, anxiety/depression and currently everyday smoker. Patient presents to ER with complaints of abdominal pain mainly mid abdomen and able to tolerate oral diet. Patient has been having symptoms for the past 4 days. Denied any fever or chills. No cough or sputum production. Patient had a prior colonoscopy about 4 years ago. Denies any recent illnesses. Does have nausea and episodes of vomiting. He did have loose stools previously. Denied any hematemesis or melena. CT of abdominal/pelvis in the ER showed infectious/inflammatory changes in the descending and sigmoid colon. No bowel obstruction., Abdominal abscess, free air are free-flowing. Findings similar to that seen on prior study of 02/07/2023. Stable supra and infrarenal abdominal aortic aneurysm EKG showed sinus tachycardia. Laboratory data showed WBC 11.0 hemoglobin 11.4 and platelets 267, MCV 100.7 Sodium 136 potassium 4.1 chloride 112 bicarb is 16 BUN 34 and creatinine 1.32 lactic acid 0.5 and alk phos 246 albumin 3.2 and urinalysis is negative for infection. 06/30/2024 Patient is lying in the bed. Awake alert and oriented x 3. Still complains of abdominal pain. No episodes of nausea or vomiting. Denied any having bowel meant today. No cough or sputum production. Patient was seen by general surgery and CT of the abdomen pelvis was reviewed. Recommend outpatient follow-up with vascular surgery for AAA surveillance. Laboratory data showed WBC 10.7 hemoglobin 9.3 and platelets 255 sodium 140 potassium 3.5 chloride 108 bicarb is 21.4 BUN 19.1 and creatinine 1.0 and blood sugar 123. Patient is tolerating oral diet. 07/01/2024 Patient is currently sitting in the bed. Awake alert and oriented x 3. Did have a bowel meant. Denied any dark-colored stools. No nausea or vomiting. Tolerating oral diet. Otherwise pain did improved compared to yesterday. Feels slightly better. No complaints of fever. No headache or dizziness or lightheadedness. No chest pain or shortness of breath. Denies any dysuria or hematuria. WBC came back to normal level. Other laboratory data reviewed. Anticipate discharge in next 24 to 48 hours with more clinical improvement. Patient is maintained on antibiotics ceftriaxone and Flagyl. 07/02/2024 Patient is lying in the bed. Awake alert and oriented x 3. Still complains of abdominal pain and bloating sensation. Patient did have a bowel movement which is watery. Also complains of nausea. No episodes of vomiting. Denied any hematemesis or melena. Patient has been continued on antibiotics ceftriaxone and Flagyl for colitis. No complaints of chest pain or shortness breath. Laboratory data showed WBC 10.4 hemoglobin 11.3 and platelets 336 sodium 140 potassium 4.2 chloride 101 bicarb is 27.7 BUN 19.3 and creatinine 1.1 Patient will be continued on normal saline at 50 cc/h. 07/05/2024 Patient is seen and evaluated in follow-up continues on full liquids and reports abdominal pain and continues with multiple episodes of diarrhea. Will consult GI and appreciate input and recommendations. Patient is continued on ceftriaxone and Flagyl and will also follow-up with repeat labs in the a.m. Patient has been encouraged to attempt to avoid IV narcotics. Review of systems: Constitutional: No reports of fatigue, fever, or chills Cardiovascular: No reports of chest pain or palpitations Respiratory: No reports of shortness of breath or cough GI: No reports of nausea, vomiting, reports multiple loose stools : No reports of dysuria or retention Neurovascular: No reports of weakness or numbness All medications have been reviewed PHYSICAL EXAMINATION: Patient is lying in the bed comfortably, awake alert and oriented.. Thin built, elderly appearing HEENT: Normocephalic. Neck is supple. Pupils reactive. Nostrils clear. Oral cavity is moist. Neck reveals no JVD, carotid bruits, or thyromegaly. CHEST EXAMINATION: Trachea is central. Symmetrical expansion. Lung adler clear to auscultation and percussion. CARDIAC: Normal S1, S2 with no gallops. No murmurs ABDOMEN: Soft. Bowel sounds present, mild left lower abdominal tenderness. No organomegaly. No abdominal bruits. Extremities: reveal no edema. No clubbing or cyanosis Neurologically awake, alert, oriented x3 with well-coordinated movements. No focal deficits noted Skin: No rash or skin lesions. Psychiatric: Cooperative. Non-suicidal Musculoskeletal: No joint swelling or deformity. Normal range of motion. Assessment: Abdominal pain likely due to colitis. CT showed infectious/inflammatory changes in the descending and sigmoid colon. Acute kidney injury likely vasomotor nephropathy. Improving Change in mental status, likely secondary to toxic/metabolic encephalopathy due to pain medication, improved Hypovolemic hyponatremia. Improved Folate deficiency with macrocytosis Coronary artery disease with history of stent placement Hypertension Fibromyalgia Hyperlipidemia Osteoarthritis Chronic back pain/degenerative disease cholelithiasis Abdominal aortic aneurysm. Stable from previous study as per CT Anxiety/depression Currently everyday smoker DVT prophylax with heparin subcu GI prophylaxis No code Plan: Patient will be continued on antibiotics ceftriaxone and Flagyl. Started back on IV hydration and diet changed to full liquid diet. Tolerating thus far although reporting having multiple bowel movements that are loose. C. difficile was negative and was given Imodium, will add [place] Patient continues with abdominal pain and continued diarrhea with colitis, will consult GI and appreciate input and recommendations Continue with pain management. Avoid IV narcotics if possible Continue with home medications including aspirin statin, metoprolol and Ranexa. Patient was seen by vascular surgery due to possible intramural thrombus in the abdominal aortic aneurysm. Recommends outpatient follow-up for surveillance. Due to multiple complex medical issues, overall prognosis is guarded Possible discharge planning in the next 24 to 48 hours The impression and plan of care has been dictated by Hailee Dale, Nurse Practitioner as directed. Dr. Trip MD I have performed a history and examination and MDM of this patient, discussed the same with the dictator, and agree with the dictator's assessment and plan as written ,documented as a scribe. Based on total visit time, I have performed more than 50% of the visit. Objective - Vital Signs Vital signs: Vital Signs Temp 98.3 F 07/05/24 06:54 Pulse 70 07/05/24 06:54 Resp 18 07/05/24 06:54 BP 154/79 07/05/24 06:54 Pulse Ox 91 L 07/05/24 06:54 FiO2 Intake & Output 07/04/24 07/05/24 07/05/24 18:59 06:59 18:59 Other: Voiding Method Diaper Toilet # Voids 4 4 # Bowel Movements 6 - Labs CBC & Chem 7: 07/05/24 03:48 07/05/24 03:48 Labs: Abnormal Lab Results - Last 24 Hours (Table) 07/05/24 07/05/24 Range/Units 03:48 03:48 WBC 12.95 H (4.50-10.00) X 10*3/uL RBC 3.27 L (4.10-5.20) X 10*6/uL Hgb 10.7 L (12.0-15.0) g/dL Hct 33.0 L (37.2-46.3) % MCV 100.9 H (80.0-97.0) FL MCH 32.7 H (27.0-32.0) pg RDW 14.6 H (11.5-14.5) % Immature Gran # 0.30 H (0.00-0.04) X 10*3/uL Monocytes # 1.14 H (0.20-1.00) X 10*3/uL Eosinophils # 1.40 H (0.04-0.35) X 10*3/uL BUN 7.6 L (9.0-27.0) mg/dL Est GFR (CKD-EPI) 54 L (>=60) BUN/Creatinine Ratio 6.91 L (12.00-20.00) Ratio Calcium 8.2 L (8.7-10.3) mg/dL Microbiology - Last 24 Hours (Table) 07/03/24 14:26 Blood Culture - Preliminary Blood
[2024-07-06 08:32] LABS: Basophils # (A) 0.06 X 10*3/uL (0.00-0.10); Basophils % (A) 0.6 %; Eosinophils # (A) 1.26 X 10*3/uL (0.04-0.35); Eosinophils % (A) 12.4 %; HCT 32.4 % (37.2-46.3); HGB 10.4 g/dL (12.0-15.0); Lymphocytes # (A) 3.28 X 10*3/uL (0.90-5.00); Lymphocytes % (A) 32.3 %; MCH 32.4 pg (27.0-32.0); MCHC 32.1 g/dL (32.0-37.0); MCV 100.9 FL (80.0-97.0); Mean Platelet Volume 9.9 FL (9.5-12.2); Monocytes # (A) 0.83 X 10*3/uL (0.20-1.00); Monocytes % (A) 8.2 %; NRBC Per 100 WBC 0.02 X 10*3/uL (0.00-0.01); Neutrophils # (A) 4.58 X 10*3/uL (1.80-7.70); Neutrophils % (A) 44.9 %; Platelet Count 354 X 10*3/uL (140-440); RBC 3.21 X 10*6/uL (4.10-5.20); RDW 14.7 % (11.5-14.5); WBC 10.17 X 10*3/uL (4.50-10.00)
[2024-07-06 08:41] LABS: ALT 14 U/L (8-44); AST 27 U/L (13-35); Albumin 3.3 g/dL (3.8-4.9); Albumin/Globulin Ratio 1.43 Ratio (1.60-3.17); Alkaline Phosphatase 82 U/L (41-126); BUN/Creat Ratio 8.45 Ratio (12.00-20.00); Blood Urea Nitrogen 9.3 mg/dL (9.0-27.0); Calcium 8.3 mg/dL (8.7-10.3); Carbon Dioxide 23.4 mmol/L (21.6-31.8); Chloride 109 mmol/L (96-109); Globulin 2.3 g/dL (1.6-3.3); Glucose 121 mg/dL (70-110); Magnesium 1.9 mg/dL (1.5-2.4); Sodium 143 mmol/L (135-145); Total Bilirubin <0.2 mg/dL (0.3-1.2); Total Protein 5.6 g/dL (6.2-8.2)
--- NOTE | 2024-07-06 13:56 | P.CONS ---
History of Present Illness - Reason for Consult Consult date: 07/06/24 Colitis Requesting physician: Christi Dominique - Chief Complaint Abdominal pain - History of Present Illness This is a pleasant 69-year-old female who has been admitted for over 7 days for complaints of abdominal pain, diarrhea with nausea and decreased appetite. She had a CT of the abdomen pelvis with reported she was started on IV antibiotics and symptoms have progressively gotten better. She did have a stool C. difficile that was negative, stool cultures pending. She was started on Questran with improvement in stool bulking and has had no bowel movements today. States she still has some lower abdominal pain although it is improving and some mild nausea. She did eat a little bit of breakfast and lunch and he has tolerated full liquid diet. She has been afebrile. States that she has loose stools, she has had some incontinence and has been worse over the last couple weeks duration. She is seen gastroenterology in the past for chronic abdominal discomfort and diarrhea. She had an upper endoscopy in January 2023 with findings of diffuse gastritis and hiatal hernia. Colonoscopy was in May 2022 which was normal. She reports 4-5 bowel movements a day however again today not no bowel movements. These bowel movements have been nonbloody. Review of Systems REVIEW OF SYSTEMS: CARDIOPULMONARY: No chest pain or shortness of breath. Gastrointestinal: Abdominal pain. No nausea or vomiting. No hematemesis, coffee-ground emesis. No rectal bleeding, or melena. Chronic diarrhea with incontinence. GENITOURINARY: No dysuria or hematuria. MUSCULOSKELETAL: Reports normal range of motion., Joint pain. SKIN: No rashes. No jaundice. ENDOCRINE: No chills, fevers. No excessive weight gain or loss. No polydipsia or polyuria. PSYCHIATRIC: Unremarkable. NEUROLOGY: No change in mental status. Denies dizziness, headache. ENT: Vision unremarkable. CONSTITUTIONAL: No recent weight loss. No fever, chills, night sweats. Past Medical History Past Medical History: Coronary Artery Disease (CAD), Chest Pain / Angina, COPD, Fibromyalgia, Hyperlipidemia, Hypertension, Osteoarthritis (OA) Additional Past Medical History / Comment(s): Chronic back pain, DDD, bulging discs, scoliosis, osteoporosis., PAST HX JAW FX RT-CAUSES HEADACHES-TAKES TEGRETOL, abdominal aneurysm Last Myocardial Infarction Date:: 06/29/2020 History of Any Multi-Drug Resistant Organisms: None Reported Past Surgical History: Breast Surgery, Heart Catheterization With Stent, Hysterectomy, Orthopedic Surgery Additional Past Surgical History / Comment(s): Back injections, L patellar s urgery, R carpal tunnel release, L breast benign biopsy, sinus surgery, EGD Past Anesthesia/Blood Transfusion Reactions: No Reported Reaction Date of Last Stent Placement:: 05/10/20 Past Psychological History: Anxiety, Depression Smoking Status: Current every day smoker Past Alcohol Use History: None Reported Past Drug Use History: None Reported - Past Family History Mother Family Medical History: Cancer Additional Family Medical History / Comment(s): Mother had lupus and TB Father History Unknown: Yes Medications and Allergies Home Medications Medication Instructions Recorded Confirmed Type traZODone HCL 150 mg PO HS 30 Days tablet 04/17/22 06/28/24 Rx Omeprazole 40 mg PO DAILY 10/17/22 06/28/24 History Famotidine [Pepcid] 20 mg PO HS PRN 12/23/22 06/28/24 History Sertraline [Zoloft] 150 mg PO DAILY 12/23/22 06/28/24 History Cyclobenzaprine [Flexeril] 5 mg PO TID PRN 06/14/24 06/28/24 History Dicyclomine [Bentyl] 10 mg PO AC-TID 06/14/24 06/28/24 History Aspirin 81 mg PO DAILY #30 tab 06/17/24 06/28/24 Rx Atorvastatin [Lipitor] 40 mg PO HS #30 tab 06/17/24 06/28/24 Rx HYDROcodone/APAP 5-325MG [[place] 1 tab PO BID PRN 30 Days #60 tab 06/17/24 06/28/24 Rx 5-325] Isosorbide Mononitrate ER [Imdur] 30 mg PO DAILY 30 Days #30 tab 06/17/24 06/28/24 Rx Metoprolol Tartrate [Lopressor] 50 mg PO DAILY #30 tab 06/17/24 06/28/24 Rx Ranolazine [Ranexa] 500 mg PO Q12HR 30 Days #60 tab 06/17/24 06/28/24 Rx Allergies Allergy/AdvReac Type Severity Reaction Status Date / Time ibuprofen AdvReac NIGHTMARES Verified 06/28/24 17:46 Iodinated Contrast Media AdvReac Nausea & Verified 06/28/24 17:46 [Iodinated Contrast Media - Vomiting IV Dye] povidone-iodine AdvReac Nausea & Verified 06/28/24 17:46 [From Betadine] Vomiting soap [From Betadine] AdvReac Nausea & Verified 06/28/24 17:46 Vomiting Physical Exam Vitals: Vital Signs Temp Pulse Resp BP Pulse Ox 07/06/24 06:54 98 F 74 17 181/87 92 L 07/06/24 01:02 98.6 F 71 18 147/81 90 L 07/05/24 20:28 98.3 F 72 16 131/66 92 L Intake and Output 07/05/24 07/06/24 07/06/24 22:59 06:59 14:59 Other: Voiding Method Toilet # Voids 3 1 # Bowel Movements 1 1 General appearance: The patient is alert, oriented, appears in no acute distress. HET: Head is normocephalic and atraumatic. Conjunctiva pink. Sclera anicteric. Neck: Supple without lymphadenopathy. Trachea midline. Heart: Regular. Lungs: Equal expansion, normal respiratory effort. Abdomen: Soft, thin, lower abdominal tenderness, nondistended. Skin: No rashes. No jaundice. Extremities: Normal skin color and turgor. No pedal edema. Neurological: No focal deficits. Alert and oriented x3. Results CBC & Chem 7: 07/06/24 03:37 07/06/24 03:37 Labs: Abnormal Lab Results - Last 24 Hours (Table) 07/06/24 07/06/24 Range/Units 03:37 03:37 WBC 10.17 H (4.50-10.00) X 10*3/uL RBC 3.21 L (4.10-5.20) X 10*6/uL Hgb 10.4 L (12.0-15.0) g/dL Hct 32.4 L (37.2-46.3) % MCV 100.9 H (80.0-97.0) FL MCH 32.4 H (27.0-32.0) pg RDW 14.7 H (11.5-14.5) % Immature Gran # 0.16 H (0.00-0.04) X 10*3/uL Eosinophils # 1.26 H (0.04-0.35) X 10*3/uL NRBC/100 WBC Diff 0.02 H (0.00-0.01) X 10*3/uL Est GFR (CKD-EPI) 54 L (>=60) BUN/Creatinine Ratio 8.45 L (12.00-20.00) Ratio Glucose 121 H (70-110) mg/dL Calcium 8.3 L (8.7-10.3) mg/dL Total Bilirubin <0.2 L (0.3-1.2) mg/dL Total Protein 5.6 L (6.2-8.2) g/dL Albumin 3.3 L (3.8-4.9) g/dL Albumin/Globulin Ratio 1.43 L (1.60-3.17) Ratio Microbiology - Last 24 Hours (Table) 07/04/24 17:52 Stool Culture - Preliminary Stool 07/03/24 14:26 Blood Culture - Preliminary Blood Comments: CT abdomen pelvis with contrast reports infectious/inflammatory changes in the descending and sigmoid colon. No bowel obstruction, abdominal abscess, free air or free fluid. Findings similar to that seen on prior study of 02/07/2023. Stable supra and infrarenal abdominal aortic aneurysm. Assessment and Plan (1) Colitis Narrative/Plan: 69-year-old admitted for last weeks duration with abdominal pain associated diarrhea nausea and decreased appetite. CT of the abdomen pelvis reporting inflammation suggesting possible infectious colitis. Abdominal pain improving, diarrhea improving she has been on IV antibiotics. Unclear etiology of colitis likely infectious. Continue with current management. Continue with Questran. Recommend outpatient follow-up with gastroenterology can consider repeat colonoscopy at that time. No plans on endoscopic evaluation at this time. Current Visit: Yes Status: Acute Code(s): K52.9 - NONINFECTIVE GASTROENT ERITIS AND COLITIS, UNSPECIFIED SNOMED Code(s): 29118608 (2) Chronic diarrhea Current Visit: Yes Status: Acute Code(s): K52.9 - NONINFECTIVE GASTROENTERITIS AND COLITIS, UNSPECIFIED SNOMED Code(s): 494272501 (3) Abdominal pain Current Visit: Yes Status: Acute Code(s): R10.9 - UNSPECIFIED ABDOMINAL PAIN SNOMED Code(s): 60880506 Plan: 1. Continue symptomatic and supportive care 2. Advance to regular diet 3. Continue IV antibiotics 4. Continue Questran 5. Continue dicyclomine 6. Recommend small meals 7. No plans on endoscopic evaluation at this time 8. Anticipate discharge in the next 1 to 2 days. Follow-up outpatient with gastroenterology. Thank you for this consultation, we will continue to follow. Dr. Jenny Cornelius I agree with the dictator's note, documented as a scribe by Linette Appiah.
[2024-07-07 02:40] VITALS: TEMP 97.6
[2024-07-07 04:53] VITALS: PULSE 78
[2024-07-07] MEDS ORDERED: LOPERAMIDE 2 MG CAP PO PRN (05:14)
--- NOTE | 2024-07-07 06:18 | P.PN ---
Subjective Progress Note Date: 07/06/24 Patient is a 69-year-old female with a past medical history of coronary disease stent placement, hypertension, hyperlipidemia, fibromyalgia, history of [place], osteoarthritis, scoliosis, anxiety/depression and currently everyday smoker. Patient presents to ER with complaints of abdominal pain mainly mid abdomen and able to tolerate oral diet. Patient has been having symptoms for the past 4 days. Denied any fever or chills. No cough or sputum production. Patient had a prior colonoscopy about 4 years ago. Denies any recent illnesses. Does have nausea and episodes of vomiting. He did have loose stools previously. Denied any hematemesis or melena. CT of abdominal/pelvis in the ER showed infectious/inflammatory changes in the descending and sigmoid colon. No bowel obstruction., Abdominal abscess, free air are free-flowing. Findings similar to that seen on prior study of 02/07/2023. Stable supra and infrarenal abdominal aortic aneurysm EKG showed sinus tachycardia. Laboratory data showed WBC 11.0 hemoglobin 11.4 and platelets 267, MCV 100.7 Sodium 136 potassium 4.1 chloride 112 bicarb is 16 BUN 34 and creatinine 1.32 lactic acid 0.5 and alk phos 246 albumin 3.2 and urinalysis is negative for infection. 06/30/2024 Patient is lying in the bed. Awake alert and oriented x 3. Still complains of abdominal pain. No episodes of nausea or vomiting. Denied any having bowel meant today. No cough or sputum production. Patient was seen by general surgery and CT of the abdomen pelvis was reviewed. Recommend outpatient follow-up with vascular surgery for AAA surveillance. Laboratory data showed WBC 10.7 hemoglobin 9.3 and platelets 255 sodium 140 potassium 3.5 chloride 108 bicarb is 21.4 BUN 19.1 and creatinine 1.0 and blood sugar 123. Patient is tolerating oral diet. 07/01/2024 Patient is currently sitting in the bed. Awake alert and oriented x 3. Did have a bowel meant. Denied any dark-colored stools. No nausea or vomiting. Tolerating oral diet. Otherwise pain did improved compared to yesterday. Feels slightly better. No complaints of fever. No headache or dizziness or lightheadedness. No chest pain or shortness of breath. Denies any dysuria or hematuria. WBC came back to normal level. Other laboratory data reviewed. Anticipate discharge in next 24 to 48 hours with more clinical improvement. Patient is maintained on antibiotics ceftriaxone and Flagyl. 07/02/2024 Patient is lying in the bed. Awake alert and oriented x 3. Still complains of abdominal pain and bloating sensation. Patient did have a bowel movement which is watery. Also complains of nausea. No episodes of vomiting. Denied any hematemesis or melena. Patient has been continued on antibiotics ceftriaxone and Flagyl for colitis. No complaints of chest pain or shortness breath. Laboratory data showed WBC 10.4 hemoglobin 11.3 and platelets 336 sodium 140 potassium 4.2 chloride 101 bicarb is 27.7 BUN 19.3 and creatinine 1.1 Patient will be continued on normal saline at 50 cc/h. 07/05/2024 Patient is seen and evaluated in follow-up continues on full liquids and reports abdominal pain and continues with multiple episodes of diarrhea. Will consult GI and appreciate input and recommendations. Patient is continued on ceftriaxone and Flagyl and will also follow-up with repeat labs in the a.m. Patient has been encouraged to attempt to avoid IV narcotics. 07/06/2024 Patient is seen in follow-up today reports improvement in her abdominal pain has been up and walking and reports less diarrhea today although continues to have loose stools but have improved from watery. GI following recommending outpatient follow-up with colonoscopy in the future and continuing current regim en at this time. Patient is maintained on antibiotics and will continue. Patient asking for increase in diet has been advanced per GI. Probable discharge in 24 hours. Patient also to follow-up with pain management outpatient. Review of systems: Constitutional: No reports of fatigue, fever, or chills Cardiovascular: No reports of chest pain or palpitations Respiratory: No reports of shortness of breath or cough GI: No reports of nausea, no vomiting, reports multiple loose stools although less frequent and less watery : No reports of dysuria or retention Neurovascular: No reports of weakness or numbness All medications have been reviewed PHYSICAL EXAMINATION: Patient is lying in the bed comfortably, awake alert and oriented.. Thin built, elderly appearing HEENT: Normocephalic. Neck is supple. Pupils reactive. Nostrils clear. Oral cavity is moist. Neck reveals no JVD, carotid bruits, or thyromegaly. CHEST EXAMINATION: Trachea is central. Symmetrical expansion. Lung adler clear to auscultation and percussion. CARDIAC: Normal S1, S2 with no gallops. No murmurs ABDOMEN: Soft. Bowel sounds present, mild left lower abdominal tenderness although improved. No organomegaly. No abdominal bruits. Extremities: reveal no edema. No clubbing or cyanosis Neurologically awake, alert, oriented x3 with well-coordinated movements. No focal deficits noted Skin: No rash or skin lesions. Psychiatric: Cooperative. Non-suicidal Musculoskeletal: No joint swelling or deformity. Normal range of motion. Assessment: Abdominal pain likely due to colitis. CT showed infectious/inflammatory changes in the descending and sigmoid colon. Acute kidney injury likely vasomotor nephropathy. Improving Change in mental status, likely secondary to toxic/metabolic encephalopathy due to pain medication, improved Hypovolemic hyponatremia. Improved Folate deficiency with macrocytosis Coronary artery disease with history of stent placement Hypertension Fibromyalgia Hyperlipidemia Osteoarthritis Chronic back pain/degenerative disease cholelithiasis Abdominal aortic aneurysm. Stable from previous study as per CT Anxiety/depression Currently everyday smoker DVT prophylax with heparin subcu GI prophylaxis No code Plan: Patient will be continued on antibiotics ceftriaxone and Flagyl. Started back on IV hydration and diet changed being advanced to regular per GI. Patient has been tolerating full liquid asking for an advance in diet. Patient reports improvements in her is abdominal pain although continues with frequent bowel movements. C. difficile was negative and was given Imodium, will continue Questran Discussed with the patient about limiting narcotic use especially IV. Daughter at the bedside had a lengthy discussion regarding pain management and will follow-up with pain management in the outpatient setting. They report she chronically follows at the pain clinic Continue with home medications including aspirin statin, metoprolol and Ranexa. Patient was seen by vascular surgery due to possible intramural thrombus in the abdominal aortic aneurysm. Recommends outpatient follow-up for surveillance. Due to multiple complex medical issues, overall prognosis is guarded Possible discharge planning in the next 24 hours The impression and plan of care has been dictated by Hailee Dale, Nurse Practitioner as directed. Dr. Trip MD I have performed a history and examination and MDM of this patient, discussed the same with the dictator, and agree with the dictator's assessment and plan as written ,documented as a scribe. Based on total visit time, I have performed more than 50% of the visit. Objective - Vital Signs Vital signs: Vital Signs Temp 97.6 F 07/07/24 01:35 Pulse 78 07/07/24 02:47 Resp 20 07/07/24 01:35 BP 148/82 07/07/24 02:47 Pulse Ox 92 L 07/07/24 01:35 FiO2 Intake & Output 07/06/24 07/06/24 07/07/24 06:59 18:59 06:59 Other: Voiding Method Toilet # Voids 1 3 # Bowel Movements 1 2 - Labs CBC & Chem 7: 07/06/24 03:37 07/06/24 03:37 Labs: Abnormal Lab Results - Last 24 Hours (Table) 07/06/24 07/06/24 Range/Units 03:37 03:37 WBC 10.17 H (4.50-10.00) X 10*3/uL RBC 3.21 L (4.10-5.20) X 10*6/uL Hgb 10.4 L (12.0-15.0) g/dL Hct 32.4 L (37.2-46.3) % MCV 100.9 H (80.0-97.0) FL MCH 32.4 H (27.0-32.0) pg RDW 14.7 H (11.5-14.5) % Immature Gran # 0.16 H (0.00-0.04) X 10*3/uL Eosinophils # 1.26 H (0.04-0.35) X 10*3/uL NRBC/100 WBC Diff 0.02 H (0.00-0.01) X 10*3/uL Est GFR (CKD-EPI) 54 L (>=60) BUN/Creatinine Ratio 8.45 L (12.00-20.00) Ratio Glucose 121 H (70-110) mg/dL Calcium 8.3 L (8.7-10.3) mg/dL Total Bilirubin <0.2 L (0.3-1.2) mg/dL Total Protein 5.6 L (6.2-8.2) g/dL Albumin 3.3 L (3.8-4.9) g/dL Albumin/Globulin Ratio 1.43 L (1.60-3.17) Ratio Microbiology - Last 24 Hours (Table) 07/03/24 14:26 Blood Culture - Preliminary Blood 07/04/24 17:52 Stool Culture - Preliminary Stool
[2024-07-07 07:36] VITALS: BP 179/96; RESP 16
[2024-07-07 10:47] LABS: Basophils # (A) 0.09 X 10*3/uL (0.00-0.10); Basophils % (A) 0.8 %; Eosinophils # (A) 1.22 X 10*3/uL (0.04-0.35); Eosinophils % (A) 10.7 %; HCT 36.3 % (37.2-46.3); HGB 11.6 g/dL (12.0-15.0); Lymphocytes # (A) 3.65 X 10*3/uL (0.90-5.00); Lymphocytes % (A) 32.1 %; MCH 32.6 pg (27.0-32.0); Mean Platelet Volume 9.6 FL (9.5-12.2); NRBC Per 100 WBC 0 X 10*3/uL (0.00-0.01); Neutrophils % (A) 48.4 %; Platelet Count 409 X 10*3/uL (140-440); RBC 3.56 X 10*6/uL (4.10-5.20); RDW 14.7 % (11.5-14.5); WBC 11.37 X 10*3/uL (4.50-10.00)
[2024-07-07 11:09] LABS: Blood Urea Nitrogen 15.4 mg/dL (9.0-27.0); Calcium 8.8 mg/dL (8.7-10.3); Carbon Dioxide 25.8 mmol/L (21.6-31.8); Chloride 104 mmol/L (96-109); Glucose 115 mg/dL (70-110); Potassium 4.4 mmol/L (3.5-5.5); Sodium 140 mmol/L (135-145)
--- NOTE | 2024-07-07 15:15 | P.PN ---
Subjective Progress Note Date: 07/07/24 Principal diagnosis: Colitis This is a pleasant 69-year-old female who has been admitted for over 7 days for complaints of abdominal pain, diarrhea with nausea and decreased appetite. She had a CT of the abdomen pelvis with reported she was started on IV antibiotics and symptoms have progressively gotten better. She did have a stool C. difficile that was negative, stool cultures pending. She was started on Questran with improvement in stool bulking and has had no bowel movements today. States she still has some lower abdominal pain although it is improving and some mild nausea. She did eat a little bit of breakfast and lunch and he has tolerated full liquid diet. She has been afebrile. States that she has loose stools, she has had some incontinence and has been worse over the last couple weeks duration. She is seen gastroenterology in the past for chronic abdominal discomfort and diarrhea. She had an upper endoscopy in January 2023 with findings of diffuse gastritis and hiatal hernia. Colonoscopy was in May 2022 which was normal. She reports 4-5 bowel movements a day however again today not no bowel movements. These bowel movements have been nonbloody. 07/07/2024 Patient seen and examined as a follow-up. Today she states she still having some abdominal pain but does seem to be better than when she came in. Diarrhea is improving. She has been afebrile. She has been able to eat and hold down her food. Objective - Vital Signs Vital signs: Vital Signs Temp 97.6 F 07/07/24 06:54 Pulse 78 07/07/24 06:54 Resp 16 07/07/24 06:54 BP 179/96 07/07/24 06:54 Pulse Ox 92 L 07/07/24 06:54 FiO2 Intake & Output 07/06/24 07/07/24 07/07/24 18:59 06:59 18:59 Other: # Voids 3 2 # Bowel Movements 2 - Exam General appearance: The patient is alert, oriented, appears in no acute distress. HET: Head is normocephalic and atraumatic. Conjunctiva pink. Sclera anicteric. Neck: Supple without lymphadenopathy. Abdomen: Soft, lower abdominal tenderness, nondistended. Extremities: Normal skin color and turgor. No pedal edema Skin: No rashes, no jaundice Neurological: No focal deficits. Alert and oriented. - Labs CBC & Chem 7: 07/07/24 05:50 07/07/24 05:50 Labs: Microbiology - Last 24 Hours (Table) 07/03/24 14:26 Blood Culture - Preliminary Blood 07/04/24 17:52 Stool Culture - Preliminary Stool Assessment and Plan (1) Colitis Narrative/Plan: 69-year-old admitted for last weeks duration with abdominal pain associated diarrhea nausea and decreased appetite. CT of the abdomen pelvis reporting inflammation suggesting possible infectious colitis. Abdominal pain improving, diarrhea improving she has been on IV antibiotics. Unclear etiology of colitis likely infectious. Continue with current management. Continue with Questran. Recommend outpatient follow-up with gastroenterology can consider repeat colonoscopy at that time. No plans on endoscopic evaluation at this time. Continue supportive care. Status: Acute Code(s): K52.9 - NONINFECTIVE GASTROENTERITIS AND COLITIS, UNSPECIFIED SNOMED Code(s): 92098340 (2) Chronic diarrhea Status: Acute Code(s): K52.9 - NONINFECTIVE GASTROENTERITIS AND COLITIS, UNSPECIFIED SNOMED Code(s): 666273807 (3) Abdominal pain Status: Acute Code(s): R10.9 - UNSPECIFIED ABDOMINAL PAIN SNOMED Code(s): 72247860 Plan: 1. Continue symptomatic and supportive care 2. Advance to regular diet 3. Imodium added per primary team 4. Continue Questran 5. Continue dicyclomine 6. Recommend small meals 7. No plans on endoscopic evaluation at this time 8. Discharge orders placed per primary team. Consider outpatient colonoscopy follow-up outpatient with gastroenterology. Thank you for this consultation. Dr. Jenny Cornelius I agree with the dictator's note, documented as a scribe by Linette Appiah.
--- NOTE | 2024-07-08 10:07 | P.DS ---
Providers Date of admission: 06/28/24 20:36 Expected date of discharge: 07/07/24 Attending physician: Christi Dominique Consults: 07/05/24 15:01 Consult Physician Urgent Consulting Provider: Charla Cornelius Consult Reason/Comments: diarrhea, colitis Do you want consulting provider notified?: Yes [facility] Course: Final diagnosis Abdominal pain due to colitis. CT showed infectious/inflammatory changes in the descending and sigmoid colon. Patient will follow-up with GI outpatient and discuss colonoscopy Acute kidney injury likely vasomotor nephropathy. Improving Change in mental status, likely secondary to toxic/metabolic encephalopathy due to pain medication, improved Hypovolemic hyponatremia. Improved Folate deficiency with macrocytosis Coronary artery disease with history of stent placement Hypertension Fibromyalgia Hyperlipidemia Osteoarthritis Chronic back pain/degenerative disease cholelithiasis Abdominal aortic aneurysm. Stable from previous study as per CT Anxiety/depression Currently everyday smoker DVT prophylax with heparin subcu GI prophylaxis No code Discharge disposition Patient is being discharged in a stable condition with guarded prognosis to home. Patient will follow-up with Dr. Clif Dominique in the outpatient setting upon discharge. Patient is to continue with oral antibiotics and close outpatient follow-up with GI as scheduled. Total time taken is greater than 35 minutes. Hospital course This is a 69-year-old female who was recently admitted with abdominal pain secondary to colitis being closely monitored. Patient maintained on IV antibiotics and bowel rest slowly advancing diet as tolerated although continue to report significant diarrhea. Patient continued reporting abdominal pain and was evaluated by GI. Patient to continue current regimen and also outpatient follow-up in 4 to 6 weeks to discuss possible colonoscopy in the near future. Patient to continue on oral antibiotic along with slowly advancing diet as tolerated and following up with primary care provider along with pain management as she has chronic pain issues as well. Patient has been cleared by consultations. Please refer to other consultation notes for further HPI. Currently no reports of chest pain, shortness of breath, or palpitations. Patient is afebrile. No reports of nausea or vomiting and patient is tolerating diet. Patient will be discharged home today. Guarded prognosis and high risk for readmissions given patient's significant comorbidities and noncompliance with medication. Physical exam: Gen: This is a 69-year-old female who is awake, alert and oriented x 3, thin built, cachectic, elderly appearing HEENT: Head is atraumatic, normocephalic. Pupils equal, round. Sclerae is anicteric. NECK: Supple. No JVD. No lymphadenopathy. No thyromegaly. LUNGS: Diminished breath sounds bilaterally otherwise clear to auscultation. No wheezes or rhonchi. No intercostal retractions. HEART: Regular rate and rhythm. No murmur. ABDOMEN: Soft. Thin, cachectic bowel sounds are present. No masses. No tenderness. EXTREMITIES: No pedal edema. No calf tenderness. NEUROLOGICAL: Patient is awake, alert and oriented x3. Cranial nerves 2 through 12 are grossly intact. Please refer to medication reconciliation sheet for a list of medications. The impression and plan of care has been dictated by Hailee Dale, Nurse Practitioner as directed. Dr. Trip MD I have performed a history and examination and MDM of this patient, discussed the same with the dictator, and agree with the dictator's assessment and plan as written ,documented as a scribe. Based on total visit time, I have performed more than 50% of the visit. Patient Condition at Discharge: Fair Plan - Discharge Summary Discharge Rx Participant: Yes New Discharge Prescriptions: New Amoxic-Pot Clav 875-125Mg [Augmentin 875-125] 1 tab PO Q12HR 5 Days #10 tab Folic Acid 1 mg PO DAILY #30 tab amLODIPine [Norvasc] 5 mg PO DAILY #30 tab Cholestyramine (with Sugar) [Questran Packet] 4 gm PO TID #90 packet Nicotine 14Mg/24Hr Patch [Habitrol] 1 patch TRANSDERM DAILY #30 patch Loperamide [Imodium] 2 mg PO QID PRN #40 cap PRN Reason: Diarrhea Nystatin 100,000 Unit/ml Susp [Mycostatin Oral Susp] 500,000 unit PO QID 7 Days #140 ml Continue traZODone HCL 150 mg PO HS 30 Days tablet Omeprazole 40 mg PO DAILY Sertraline [Zoloft] 150 mg PO DAILY Famotidine [Pepcid] 20 mg PO HS PRN PRN Reason: GERD Cyclobenzaprine [Flexeril] 5 mg PO TID PRN PRN Reason: Muscle Spasm Aspirin 81 mg PO DAILY #30 tab Atorvastatin [Lipitor] 40 mg PO HS #30 tab Metoprolol Tartrate [Lopressor] 50 mg PO DAILY #30 tab Isosorbide Mononitrate ER [Imdur] 30 mg PO DAILY 30 Days #30 tab Dicyclomine [Bentyl] 10 mg PO AC-TID Ranolazine [Ranexa] 500 mg PO Q12HR 30 Days #60 tab HYDROcodone/APAP 5-325MG [[place] 5-325] 1 tab PO BID PRN 30 Days #60 tab PRN Reason: Pain Discharge Medication List traZODone HCL 150 mg PO HS 30 Days tablet 04/17/22 [Rx] Omeprazole 40 mg PO DAILY 10/17/22 [History] Famotidine [Pepcid] 20 mg PO HS PRN 12/23/22 [History] Sertraline [Zoloft] 150 mg PO DAILY 12/23/22 [History] Cyclobenzaprine [Flexeril] 5 mg PO TID PRN 06/14/24 [History] Dicyclomine [Bentyl] 10 mg PO AC-TID 06/14/24 [History] Aspirin 81 mg PO DAILY #30 tab 06/17/24 [Rx] Atorvastatin [Lipitor] 40 mg PO HS #30 tab 06/17/24 [Rx] HYDROcodone/APAP 5-325MG [[place] 5-325] 1 tab PO BID PRN 30 Days #60 tab 06/17/24 [Rx] Isosorbide Mononitrate ER [Imdur] 30 mg PO DAILY 30 Days #30 tab 06/17/24 [Rx] Metoprolol Tartrate [Lopressor] 50 mg PO DAILY #30 tab 06/17/24 [Rx] Ranolazine [Ranexa] 500 mg PO Q12HR 30 Days #60 tab 06/17/24 [Rx] Amoxic-Pot Clav 875-125Mg [Augmentin 875-125] 1 tab PO Q12HR 5 Days #10 tab 07/07/24 [Rx] Cholestyramine (with Sugar) [Questran Packet] 4 gm PO TID #90 packet 07/07/24 [Rx] Folic Acid 1 mg PO DAILY #30 tab 07/07/24 [Rx] Loperamide [Imodium] 2 mg PO QID PRN #40 cap 07/07/24 [Rx] Nicotine 14Mg/24Hr Patch [Habitrol] 1 patch TRANSDERM DAILY #30 patch 07/07/24 [Rx] Nystatin 100,000 Unit/ml Susp [Mycostatin Oral Susp] 500,000 unit PO QID 7 Days #140 ml 07/07/24 [Rx] amLODIPine [Norvasc] 5 mg PO DAILY #30 tab 07/07/24 [Rx] Follow up Appointment(s)/Referral(s): Charla Cornelius MD [STAFF PHYSICIAN] - 2 Weeks (office closed at time of discharge. Please call to schedule appointment ) Brian Starr MD [STAFF PHYSICIAN] - 08/09/24 2:00 pm (if want to move sooner Please call office to reschedule) Marium Mazariegos MD [Primary Care Provider] - 1-2 days (office not answering Please call to schedule appointment ) Activity/Diet/Wound Care/Special Instructions: Activity limited follow-up Outpatient continue taking prescribed dance diet as Continue with Imodium as needed for diarrhea continue Questran 2-3 times daily and hold if having formed stools Continue antibiotics until finished Repeat labs in the outpatient setting in the next 1 week Discharge Disposition: HOME SELF-CARE
== END 2024-07-07 14:05 | disposition home or self-care (01) | DRG 391 ==
LOC: EC 12:55 → 4SSUR 20:36 → OBSVTOIN 20:36 → 4SSUR 23:24
PROVIDERS: ADMIT Hospitalist; ATTEND Hospitalist
DX: A09 Infectious gastroenteritis and colitis, unspecified (principal); G92.8 Other toxic encephalopathy; N17.0 Acute kidney failure with tubular necrosis; E87.1 Hypo-osmolality and hyponatremia; L02.211 Cutaneous abscess of abdominal wall; E86.1 Hypovolemia; E53.8 Deficiency of other specified B group vitamins; D75.89 Other specified diseases of blood and blood-forming organs; I10 Essential (primary) hypertension; M79.7 Fibromyalgia; F17.210 Nicotine dependence, cigarettes, uncomplicated; F32.A Depression, unspecified; I25.10 Atherosclerotic heart disease of native coronary artery without angina pectoris; J44.9 Chronic obstructive pulmonary disease, unspecified; F41.9 Anxiety disorder, unspecified; M19.90 Unspecified osteoarthritis, unspecified site; I71.43 Infrarenal abdominal aortic aneurysm, without rupture; T40.2X5A Adverse effect of other opioids, initial encounter; K44.9 Diaphragmatic hernia without obstruction or gangrene; M41.9 Scoliosis, unspecified; K80.20 Calculus of gallbladder without cholecystitis without obstruction; M54.9 Dorsalgia, unspecified; K29.70 Gastritis, unspecified, without bleeding; Z95.5 Presence of coronary angioplasty implant and graft; E78.5 Hyperlipidemia, unspecified; D50.9 Iron deficiency anemia, unspecified; G89.29 Other chronic pain; I25.2 Old myocardial infarction; X58.XXXA Exposure to other specified factors, initial encounter; R00.0 Tachycardia, unspecified; M81.0 Age-related osteoporosis without current pathological fracture; T39.95XA Adverse effect of unspecified nonopioid analgesic, antipyretic and antirheumatic, initial encounter; N28.9 Disorder of kidney and ureter, unspecified; Z79.82 Long term (current) use of aspirin; Z79.899 Other long term (current) drug therapy; Z90.710 Acquired absence of both cervix and uterus; Z91.148 Patient's other noncompliance with medication regimen for other reason; Z88.6 Allergy status to analgesic agent; Z91.041 Radiographic dye allergy status; I51.3 Intracardiac thrombosis, not elsewhere classified
CPT/HCPCS: 36415; 71045; 74177; 80048; 80053; 81001; 83605; 83690; 83735; 85025; 87040; 87045; 87046; 87324; 93005; 94640; 96361; 96365; 96366; 96375; 96376; 99285

== ENCOUNTER 2024-07-10 11:55 | Observation (INO) | payer MEDICARE ==
--- NOTE | 2024-07-10 12:28 | ED ---
General Adult HPI - General Chief complaint: Weakness Stated complaint: Weakness and diarrhea Time Seen by Provider: 07/10/24 12:01 Source: patient, RN notes reviewed Mode of arrival: ambulatory Limitations: no limitations - History of Present Illness Initial comments: Patient is a 69-year-old female present to the emergency department with concerns for generalized weakness. Patient was in the hospital diagnosed with colitis recently. Patient has continued symptoms and incontinence. Discomfort of the abdomen has improved however still has some. Patient has dry heaves and decreased oral intake. Patient has had a controlled fall no injury secondary to leg weakness. - Related Data Home Medications Medication Instructions Recorded Confirmed Omeprazole 40 mg PO DAILY 10/17/22 06/28/24 Famotidine [Pepcid] 20 mg PO HS PRN 12/23/22 06/28/24 Sertraline [Zoloft] 150 mg PO DAILY 12/23/22 06/28/24 Cyclobenzaprine [Flexeril] 5 mg PO TID PRN 06/14/24 06/28/24 Dicyclomine [Bentyl] 10 mg PO AC-TID 06/14/24 06/28/24 Previous Rx's Medication Instructions Recorded traZODone HCL 150 mg PO HS 30 Days tablet 04/17/22 Aspirin 81 mg PO DAILY #30 tab 06/17/24 Atorvastatin [Lipitor] 40 mg PO HS #30 tab 06/17/24 HYDROcodone/APAP 5-325MG [[place] 1 tab PO BID PRN 30 Days #60 tab 06/17/24 5-325] Isosorbide Mononitrate ER [Imdur] 30 mg PO DAILY 30 Days #30 tab 06/17/24 Metoprolol Tartrate [Lopressor] 50 mg PO DAILY #30 tab 06/17/24 Ranolazine [Ranexa] 500 mg PO Q12HR 30 Days #60 tab 06/17/24 Amoxic-Pot Clav 875-125Mg 1 tab PO Q12HR 5 Days #10 tab 07/07/24 [Augmentin 875-125] Cholestyramine (with Sugar) 4 gm PO TID #90 packet 07/07/24 [Questran Packet] Folic Acid 1 mg PO DAILY #30 tab 07/07/24 Loperamide [Imodium] 2 mg PO QID PRN #40 cap 07/07/24 Nicotine 14Mg/24Hr Patch [Habitrol] 1 patch TRANSDERM DAILY #30 patch 07/07/24 Nystatin 100,000 Unit/ml Susp 500,000 unit PO QID 7 Days #140 ml 07/07/24 [Mycostatin Oral Susp] amLODIPine [Norvasc] 5 mg PO DAILY #30 tab 07/07/24 Allergies Allergy/AdvReac Type Severity Reaction Status Date / Time ibuprofen AdvReac NIGHTMARES Verified 07/10/24 12:04 Iodinated Contrast Media AdvReac Nausea & Verified 07/10/24 12:04 [Iodinated Contrast Media - Vomiting IV Dye] povidone-iodine AdvReac Nausea & Verified 07/10/24 12:04 [From Betadine] Vomiting soap [From Betadine] AdvReac Nausea & Verified 07/10/24 12:04 Vomiting Review of Systems ROS Statement: Those systems with pertinent positive or pertinent negative responses have been documented in the HPI. ROS Other: All systems not noted in ROS Statement are negative. Constitutional: Denies: fever Eyes: Denies: eye pain ENT: Denies: ear pain Respiratory: Denies: cough Cardiovascular: Denies: chest pain Endocrine: Denies: fatigue Gastrointestinal: Reports: as per HPI, diarrhea Genitourinary: Denies: dysuria Musculoskeletal: Denies: back pain Skin: Denies: rash Neurological: Denies: weakness Past Medical History Past Medical History: Coronary Artery Disease (CAD), Chest Pain / Angina, COPD, Fibromyalgia, Hyperlipidemia, Hypertension, Osteoarthritis (OA) Additional Past Medical History / Comment(s): Chronic back pain, DDD, bulging discs, scoliosis, osteoporosis., PAST HX JAW FX RT-CAUSES HEADACHES-TAKES TEGRETOL, abdominal aneurysm. colitis Last Myocardial Infarction Date:: 06/29/2020 History of Any Multi-Drug Resistant Organisms: None Reported Past Surgical History: Breast Surgery, Heart Catheterization With Stent, Hysterectomy, Orthopedic Surgery Additional Past Surgical History / Comment(s): Back injections, L patellar surgery, R carpal tunnel release, L breast benign biopsy, sinus surgery, EGD Past Anesthesia/Blood Transfusion Reactions: No Reported Reaction Date of Last Stent Placement:: 05/10/20 Past Psychological History: Anxiety, Depression Smoking Status: Current every day smoker Past Alcohol Use History: None Reported Past Drug Use History: None Reported - Past Family History Mother Family Medical History: Cancer Additional Family Medical History / Comment(s): Mother had lupus and TB Father History Unknown: Yes General Exam Limitations: no limitations General appearance: alert, in no apparent distress Head exam: Present: normocephalic Eye exam: Present: normal appearance ENT exam: Present: mucous membranes dry Neck exam: Present: normal inspection Respiratory exam: Present: normal lung sounds bilaterally Cardiovascular Exam: Present: regular rate, normal rhythm GI/Abdominal exam: Present: soft, tenderness (Mild epigastric tenderness) Extremities exam: Present: normal inspection. Absent: pedal edema, calf tenderness Neurological exam: Present: alert Psychiatric exam: Present: normal affect, normal mood Skin exam: Present: normal color Course Vital Signs 07/10/24 07/10/24 12:00 15:26 Temperature 97.5 F L Pulse Rate 92 81 Respiratory 20 16 Rate Blood Pressure 103/65 155/96 O2 Sat by Pulse 96 98 Oximetry EKG Findings - EKG Results: EKG: interpreted by ERMD, sinus rhythm, normal axis, normal QRS, normal ST/T Medical Decision Making - Medical Decision Making Was pt. sent in by a medical professional or institution (, PA, RN CORRECTIONS, urgent care, hospital, or assisted...) When possible be specific @ -No Did you speak to anyone other than the patient for history (EMS, parent, family, police, friend...)? What history was obtained from this source @ -Daughter is present and helps provide history including patient's recent admission and recent symptoms and weakness Did you review nursing and triage notes (agree or disagree)? Why? @ -I reviewed and agree with nursing and triage notes Were old charts reviewed (outside hosp., previous admission, EMS record, old EKG, old radiological studies, urgent care reports/EKG's, assisted records)? Report findings @ -Previous renal function reviewed different from today Differential Diagnosis (chest pain, altered mental status, abdominal pain women, abdominal pain men, vaginal bleeding, weakness, fever, dyspnea, syncope, headache, dizziness, GI bleed, back pain, seizure, CVA, palpatations, mental health, musculoskeletal)? @ -Differential Weakness: Hypoglycemia, shock, sepsis, hyponatremia, anemia, infection, VT, ETOH, adverse medicine reaction, overdose, stroke, this is not meant to be an all-inclusive list. EKG interpreted by me (3pts min.). @ -As above X-rays interpreted by me (1pt min.). @ -Abdominal x-ray reveals nonspecific CT interpreted by me (1pt min.). @ -None done U/S interpreted by me (1pt. min.). @ -None done What testing was considered but not performed or refused? (CT, X-rays, U/S, labs)? Why? @ -None What meds were considered but not given or refused? Why? @ -None Did you discuss the management of the patient with other professionals (professionals i.e. DrAnupama, PA, RN CORRECTIONS, lab, RT, psych nurse, social science research assistant, dull coat mill operator, teacher, penal officer, high risk case manager)? Give summary @ -Case was discussed with Dr. Lucero who will admit covering Dr. Velásquez. Was smoking cessation discussed for >3mins.? @ -No Was critical care preformed (if so, how long)? @ -No Were there social determinants of health that impacted care today? How? (Homele ssness, low income, unemployed, alcoholism, drug addiction, transportation, low edu. Level, literacy, decrease access to med. care, group home, rehab)? @ -No Was there de-escalation of care discussed even if they declined (Discuss DNR or withdrawal of care, Hospice)? DNR status @ -No What co-morbidities impacted this encounter? (DM, HTN, Smoking, COPD, CAD, Cancer, CVA, ARF, Chemo, Hep., AIDS, mental health diagnosis, sleep apnea, morbid obesity)? @ -Recent colitis Was patient admitted / discharged? Hospital course, mention meds given and route, prescriptions, significant lab abnormalities, going to OR and other pertinent info. @ -Patient presents with recent colitis and continued diarrhea however patient has now increased weakness. Patient has acute kidney injury. Patient will be admitted with IV fluids. Admission orders written. Undiagnosed new problem with uncertain prognosis? @ -No Drug Therapy requiring intensive monitoring for toxicity (Heparin, Nitro, Insulin, Cardizem)? @ -No Were any procedures done? @ -No Diagnosis/symptom? @ -Acute kidney injury Acute, or Chronic, or Acute on Chronic? @ -Patient Uncomplicated (without systemic symptoms) or Complicated (systemic symptoms)? @ -Default Side effects of treatment? @ -No Exacerbation, Progression, or Severe Exacerbation? @ -No Poses a threat to life or bodily function? How? (Chest pain, USA, VT, pneumonia, PE, COPD, DKA, ARF, appy, cholecystitis, CVA, Diverticulitis, Homicidal, Suicidal, threat to staff... and all critical care pts) @ -Threat to renal function on - Lab Data Result diagrams: 07/10/24 12:34 07/10/24 12:34 Lab Results 07/10/24 07/10/24 Range/Units 12:34 12:34 WBC 13.2 H (3.8-10.6) k/uL RBC 3.90 (3.80-5.40) m/uL Hgb 12.8 (11.4-16.0) gm/dL Hct 38.9 (34.0-46.0) % MCV 99.7 (80.0-100.0) fL MCH 32.8 (25.0-35.0) pg MCHC 32.9 (31.0-37.0) g/dL RDW 15.2 (11.5-15.5) % Plt Count 463 H (150-450) k/uL MPV 8.0 Neutrophils % 69 % Lymphocytes % 22 % Monocytes % 6 % Eosinophils % 1 % Basophils % 0 % Neutrophils # 9.1 H (1.3-7.7) k/uL Lymphocytes # 2.9 (1.0-4.8) k/uL Monocytes # 0.8 (0-1.0) k/uL Eosinophils # 0.2 (0-0.7) k/uL Basophils # 0.0 (0-0.2) k/uL Macrocytosis Slight Sodium 134 L (137-145) mmol/L Potassium 4.6 (3.5-5.1) mmol/L Chloride 103 (98-107) mmol/L Carbon Dioxide 20 L (22-30) mmol/L Anion Gap 11 mmol/L BUN 36 H (7-17) mg/dL Creatinine 3.00 H (0.52-1.04) mg/dL Est GFR (CKD-EPI)AfAm 18 (>60 ml/min/1.73 sqM) Est GFR (CKD-EPI)NonAf 15 (>60 ml/min/1.73 sqM) Glucose 122 H (74-99) mg/dL Calcium 9.1 (8.4-10.2) mg/dL Total Bilirubin 0.9 (0.2-1.3) mg/dL AST 35 (14-36) U/L ALT 14 (4-34) U/L Alkaline Phosphatase 54 (38-126) U/L Total Protein 7.3 (6.3-8.2) g/dL Albumin 3.9 (3.5-5.0) g/dL Amylase 111 H (30-110) U/L Lipase 276 (23-300) U/L Disposition Clinical Impression: ARTHUR (acute kidney injury) Disposition: ADMITTED IP TO THIS HOSP Condition: Serious Is patient prescribed a controlled substance at d/c from ED?: No Referrals: Marium Mazariegos MD [Primary Care Provider] - 1-2 days Time of Disposition: 15:47
[2024-07-10] MEDS: SODIUM CHLORIDE 0.9% 1,000 ML IV STA ×2 (12:40)
[2024-07-10] MEDS: FAMOTIDINE 20 MG/2 ML VIAL IV STA (12:40)
[2024-07-10] MEDS: ONDANSETRON 4 MG/2 ML VIAL IVP STA (12:41)
[2024-07-10] MEDS: DICYCLOMINE 10 MG/ML 2 ML AMP IM STA (12:41)
[2024-07-10 13:15] LABS: ALT 14 U/L (4-34); African American GFR (CKD) 18 (>60 ml/min/1.73 sqM); Amylase 111 U/L (30-110); Anion Gap 11 mmol/L; Blood Urea Nitrogen 36 mg/dL (7-17); Calcium 9.1 mg/dL (8.4-10.2); Carbon Dioxide 20 mmol/L (22-30); Chloride 103 mmol/L (98-107); Glucose 122 mg/dL (74-99); Lipase 276 U/L (23-300); Non-African American GFR(CKD) 15 (>60 ml/min/1.73 sqM); Sodium 134 mmol/L (137-145); Total Bilirubin 0.9 mg/dL (0.2-1.3)
[2024-07-10 13:28] LABS: Basophils % (A) 0 %; Eosinophils # (A) 0.2 k/uL (0-0.7); Eosinophils % (A) 1 %; HCT 38.9 % (34.0-46.0); HGB 12.8 gm/dL (11.4-16.0); Lymphocytes # (A) 2.9 k/uL (1.0-4.8); Lymphocytes % (A) 22 %; MCH 32.8 pg (25.0-35.0); MCHC 32.9 g/dL (31.0-37.0); MCV 99.7 fL (80.0-100.0); Macrocytosis Slight; Monocytes # (A) 0.8 k/uL (0-1.0); Monocytes % (A) 6 %; Neutrophils # (A) 9.1 k/uL (1.3-7.7); Neutrophils % (A) 69 %; Platelet Count 463 k/uL (150-450); RDW 15.2 % (11.5-15.5); WBC 13.2 k/uL (3.8-10.6)
--- NOTE | 2024-07-10 13:31 | XR ---
KUB. HISTORY: Abdominal pain. COMPARISON: 02/07/2023 TECHNIQUE: Single upright view of the abdomen was obtained.. FINDINGS: The lung bases are clear. There is no free intraperitoneal air beneath the diaphragm. The bowel gas pattern is nonspecific and there is no evidence of obstruction. There is minimal stool within the colon. No suspicious abdominal or pelvic calcifications are seen. The osseous structures are intact. IMPRESSION: Nonspecific abdomen without evidence of free air or obstruction. Minimal stool within the colon. [facility], Workstation: SHAKA 07/10/2024 1:29 PM
[2024-07-10 13:34] LABS: AST 35 U/L (14-36); Albumin 3.9 g/dL (3.5-5.0); Alkaline Phosphatase 54 U/L (38-126); Potassium 4.6 mmol/L (3.5-5.1); Total Protein 7.3 g/dL (6.3-8.2)
[2024-07-10] MEDS ORDERED: NALOXONE 0.4 MG/ML 1 ML VIAL IV PRN (15:48)
[2024-07-10] MEDS ORDERED: ACETAMINOPHEN TAB 325 MG TAB PO PRN (15:48)
[2024-07-10] MEDS: SODIUM CHLORIDE 0.9% 1,000 ML IV SCH (16:49)
--- NOTE | 2024-07-10 17:47 | P.HPIM ---
History of Present Illness This is a pleasant 69 years old female with past medical history of multiple medical problems as below. She was feeling generalized weakness " my legs gave up on me" also complains from weak upper extremities. She was recently hospitalized for colitis Patient recently hospitalized and discharged 2 days ago for similar complaint, she was evaluated by GI service who recommended no indication for endoscopy at that time with IV antibiotics, she was receiving IV ceftriaxone and Flagyl. C. difficile was negative at that time. Patient was discharged on Augmentin x 5 days. We confirmed with the patient states she was taking it at home. Patient denies urinary complaint. She has some chest pain with nausea only but currently she is chest pain-free, no dyspnea no coughing She has dizziness like presyncope but no unilateral weakness or lateralization. Patient states that yesterday she has 2 bowel movement and she could not control her bowel movement. But she is having nausea with no vomiting Also she is complaining from abdominal pain although she states it is severe abdominal pain 10/10 however patient looks comfortable and relaxed. She states she has this abdominal pain for about 2 weeks. Are on the sides and going to the central with no specific relieving or precipitating factors. She is little bit because she got bloated easily She has history of COPD but not a lot of dyspnea or coughing currently She has little guarding in the epigastric area but no rebound tenderness Her PCP is Dr. Causey She said she is supposed to follow-up with Dr. Matute. She knows there is no GI service in this hospital and she does not want to be transferred to another hospital with GI service. She is hemodynamically stable, blood pressure slightly on the high side 160/100, she is afebrile She has mild leukocytosis around 13,000 however she has chronic leukocytosis with baseline 10-16 Creatinine at 3.0 with baseline 1-1.4. Liver enzymes unremarkable KUB shows nonspecific bowel pattern EKG showing sinus rhythm at [address]-T changes Review of Systems Review of systems CONSTITUTIONAL: No fever, no malaise, no fatigue. HEENT: No recent visual problems or hearing problems. Denied any sore throat. CARDIOVASCULAR: No orthopnea, PND, no palpitations, no syncope. PULMONARY: No shortness of breath, no cough, no hemoptysis. GASTROINTESTINAL: As above. NEUROLOGICAL: No headaches, no weakness, no numbness. HEMATOLOGICAL: Denies any bleeding or petechiae. GENITOURINARY: Denies any burning micturition, frequency, or urgency. MUSCULOSKELETAL/RHEUMATOLOGICAL: Denies any joint pain, swelling, or any muscle pain. ENDOCRINE: Denies any polyuria or polydipsia. Past Medical History Past Medical History: Coronary Artery Disease (CAD), Chest Pain / Angina, COPD, Fibromyalgia, Hyperlipidemia, Hypertension, Osteoarthritis (OA) Additional Past Medical History / Comment(s): Chronic back pain, DDD, bulging discs, scoliosis, osteoporosis., PAST HX JAW FX RT-CAUSES HEADACHES-TAKES TEGRETOL, abdominal aneurysm. colitis Last Myocardial Infarction Date:: 06/29/2020 History of Any Multi-Drug Resistant Organisms: None Reported Past Surgical History: Breast Surgery, Heart Catheterization With Stent, Hysterectomy, Orthopedic Surgery Additional Past Surgical History / Comment(s): Back injections, L patellar surge ry, R carpal tunnel release, L breast benign biopsy, sinus surgery, EGD Past Anesthesia/Blood Transfusion Reactions: No Reported Reaction Date of Last Stent Placement:: 05/10/20 Past Psychological History: Anxiety, Depression Smoking Status: Current every day smoker Past Alcohol Use History: None Reported Past Drug Use History: None Reported - Past Family History Mother Family Medical History: Cancer Additional Family Medical History / Comment(s): Mother had lupus and TB Father History Unknown: Yes Medications and Allergies Home Medications Medication Instructions Recorded Confirmed Type traZODone HCL 150 mg PO HS 30 Days tablet 04/17/22 07/10/24 Rx Omeprazole 40 mg PO DAILY 10/17/22 07/10/24 History Famotidine [Pepcid] 20 mg PO HS PRN 12/23/22 07/10/24 History Sertraline [Zoloft] 150 mg PO DAILY 12/23/22 07/10/24 History Cyclobenzaprine [Flexeril] 5 mg PO TID PRN 06/14/24 07/10/24 History Dicyclomine [Bentyl] 10 mg PO AC-TID 06/14/24 07/10/24 History Aspirin 81 mg PO DAILY #30 tab 06/17/24 07/10/24 Rx Atorvastatin [Lipitor] 40 mg PO HS #30 tab 06/17/24 07/10/24 Rx HYDROcodone/APAP 5-325MG [[place] 1 tab PO BID PRN 30 Days #60 tab 06/17/24 07/10/24 Rx 5-325] Isosorbide Mononitrate ER [Imdur] 30 mg PO DAILY 30 Days #30 tab 06/17/24 07/10/24 Rx Metoprolol Tartrate [Lopressor] 50 mg PO DAILY #30 tab 06/17/24 07/10/24 Rx Ranolazine [Ranexa] 500 mg PO Q12HR 30 Days #60 tab 06/17/24 07/10/24 Rx Amoxic-Pot Clav 875-125Mg 1 tab PO Q12HR 5 Days #10 tab 07/07/24 07/10/24 Rx [Augmentin 875-125] Cholestyramine (with Sugar) 4 gm PO TID #90 packet 07/07/24 07/10/24 Rx [Questran Packet] Folic Acid 1 mg PO DAILY #30 tab 07/07/24 07/10/24 Rx Loperamide [Imodium] 2 mg PO QID PRN #40 cap 07/07/24 07/10/24 Rx Nicotine 14Mg/24Hr Patch [Habitrol] 1 patch TRANSDERM DAILY #30 patch 07/07/24 07/10/24 Rx Nystatin 100,000 Unit/ml Susp 500,000 unit PO QID 7 Days #140 ml 07/07/24 07/10/24 Rx [Mycostatin Oral Susp] amLODIPine [Norvasc] 5 mg PO DAILY #30 tab 07/07/24 07/10/24 Rx Allergies Allergy/AdvReac Type Severity Reaction Status Date / Time ibuprofen AdvReac NIGHTMARES Verified 07/10/24 16:18 Iodinated Contrast Media AdvReac Nausea & Verified 07/10/24 16:18 [Iodinated Contrast Media - Vomiting IV Dye] povidone-iodine AdvReac Nausea & Verified 07/10/24 16:18 [From Betadine] Vomiting soap [From Betadine] AdvReac Nausea & Verified 07/10/24 16:18 Vomiting Physical Exam Vitals: Vital Signs Temp Pulse Pulse Resp BP BP Pulse Ox 07/10/24 17:22 98.2 F 74 18 161/100 97 07/10/24 16:47 81 16 150/76 97 07/10/24 15:26 81 16 155/96 98 07/10/24 12:00 97.5 F L 92 20 103/65 96 Intake and Output 07/10/24 07/10/24 07/10/24 06:59 14:59 22:59 Other: Weight 37.195 kg GENERAL: The patient is alert and oriented x3, not in any acute distress. Well developed, well nourished. HEENT: Pupils are round and equally reacting to light. EOMI. No scleral icterus. No conjunctival pallor. Normocephalic, atraumatic. No pharyngeal erythema. No thyromegaly. CARDIOVASCULAR: S1 and S2 present. No murmurs, rubs, or gallops. PULMONARY: Chest is clear to auscultation, no wheezing , no crackles. ABDOMEN: Soft, nontender, nondistended, normoactive bowel sounds. No palpable organomegaly. MUSCULOSKELETAL: No joint swelling or deformity. EXTREMITIES: No cyanosis, clubbing, or pedal edema. NEUROLOGICAL: Gross neurological examination did not reveal any focal deficits. SKIN: No rashes. no petechiae. Results CBC & Chem 7: 07/10/24 12:34 07/10/24 12:34 Labs: Abnormal Lab Results - Last 24 Hours (Table) 07/10/24 07/10/24 Range/Units 12:34 12:34 WBC 13.2 H (3.8-10.6) k/uL Plt Count 463 H (150-450) k/uL Neutrophils # 9.1 H (1.3-7.7) k/uL Sodium 134 L (137-145) mmol/L Carbon Dioxide 20 L (22-30) mmol/L BUN 36 H (7-17) mg/dL Creatinine 3.00 H (0.52-1.04) mg/dL Glucose 122 H (74-99) mg/dL Amylase 111 H (30-110) U/L Assessment and Plan Assessment: Acute gastroenteritis corrected of infectious etiologies Acute kidney injury on chronic kidney disease stage III Chronic mild leukocytosis Hypertension Hyperlipidemia Osteoarthritis Fibromyalgia COPD, not an active issue Coronary artery disease patient presents because Plan: Will start the patient on antibiotic ceftriaxone and Flagyl Check stool studies, C. difficile and stool culture. Check pro- Calcitonin level Will consult general surgery on-call for further evaluation Continue with gentle hydration Hydralazine as needed for high blood pressure Check urine analysis and bladder scan, if no improvement will consider ultrasound of the kidneys and nephrology consult Labs and medication were reviewed.. Continue same treatment. Continue with symptomatic treatment. Resume home medication. Monitor labs and vitals. DVT and GI prophylaxis. Further recommendations as per clinical course of the patient DVT prophylaxis: Subcutaneous heparin GI Prophylaxis: Pepcid PT/OT: Pending Prognosis is guarded
[2024-07-10] MEDS: traMADol 50 MG TAB PO PRN (17:53)
[2024-07-10] MEDS: hydrALAZINE HCL 25 MG TAB PO PRN (17:53)
[2024-07-10] MEDS: metroNIDAZOLE 500 MG TAB PO SCH (19:48)
[2024-07-10] MEDS: HEPARIN SODIUM,PORCINE 5,000 UNIT/ML 1 ML VIAL SQ SCH (19:48)
[2024-07-10] MEDS: MORPHINE SULFATE 4 MG/ML SYRINGE IV PRN (19:49)
[2024-07-10] MEDS ORDERED: LOPERAMIDE 2 MG CAP PO PRN (20:05)
[2024-07-10] MEDS ORDERED: CYCLOBENZAPRINE 5 MG TAB PO PRN (20:05)
[2024-07-10] MEDS: CHOLESTYRAMINE (WITH SUGAR) 4 GM PACKET PO SCH (20:24)
[2024-07-10] MEDS: traZODone HCL 50 MG TAB PO SCH (20:27)
[2024-07-10] MEDS: ATORVASTATIN 40 MG TAB PO SCH (20:27)
[2024-07-10] MEDS: RANOLAZINE 500 MG TAB.ER.12H PO SCH (20:28)
[2024-07-10 21:04] LABS: Appearance,Urine Clear (Clear); Bilirubin,Urine Negative (Negative); Blood,Urine Negative (Negative); Color,Urine Yellow; Glucose,Urine (UA) Negative (Negative); Ketones,Urine Negative (Negative); Leukocyte Esterase,Urine Negative (Negative); Mucus,Urine Rare /hpf; Nitrite,Urine Negative (Negative); Protein,Urine 1+ (Negative); RBC,Urine 1 /hpf (0-5); Specific Gravity,Urine 1.025 (1.001-1.035); Squamous Epithelial Cell,Urine 1 /hpf (0-4); Urobilinogen,Urine <2.0 mg/dL (<2.0); WBC,Urine 2 /hpf (0-5)
[2024-07-11] MEDS: DICYCLOMINE 10 MG CAP PO SCH (06:33)
[2024-07-11] MEDS: SERTRALINE 50 MG TAB PO SCH (07:58)
[2024-07-11] MEDS: PANTOPRAZOLE 40 MG TABLET PO SCH (07:58)
[2024-07-11] MEDS: ASPIRIN 81 MG PO SCH (07:58)
[2024-07-11] MEDS: FOLIC ACID 1 MG TAB PO SCH (07:58)
[2024-07-11] MEDS: METOPROLOL TARTRATE 50 MG TAB PO SCH (07:58)
[2024-07-11] MEDS: NICOTINE 14MG/24HR PATCH TRANSDERM SCH (07:58)
[2024-07-11] MEDS: amLODIPine 5 MG TAB PO SCH (07:58)
[2024-07-11] MEDS: ISOSORBIDE MONONITRATE ER 30 MG TAB.ER.24H PO SCH (07:58)
[2024-07-11] MEDS: FAMOTIDINE 20 MG TAB PO SCH (08:15)
[2024-07-11 09:57] LABS: Basophils % (A) 1.1 %; Eosinophils # (A) 0.34 X 10*3/uL (0.04-0.35); Eosinophils % (A) 3.6 %; HCT 31.7 % (37.2-46.3); HGB 10.2 g/dL (12.0-15.0); Lymphocytes # (A) 3.64 X 10*3/uL (0.90-5.00); Lymphocytes % (A) 38.6 %; MCH 31.9 pg (27.0-32.0); MCHC 32.2 g/dL (32.0-37.0); MCV 99.1 FL (80.0-97.0); Mean Platelet Volume 9.4 FL (9.5-12.2); Monocytes % (A) 10.6 %; NRBC Per 100 WBC 0 X 10*3/uL (0.00-0.01); Neutrophils # (A) 4.32 X 10*3/uL (1.80-7.70); Neutrophils % (A) 45.7 %; Platelet Count 412 X 10*3/uL (140-440); WBC 9.44 X 10*3/uL (4.50-10.00)
[2024-07-11 10:22] LABS: BUN/Creat Ratio 14.36 Ratio (12.00-20.00); Blood Urea Nitrogen 20.1 mg/dL (9.0-27.0); Calcium 8.3 mg/dL (8.7-10.3); Carbon Dioxide 21.2 mmol/L (21.6-31.8); Chloride 112 mmol/L (96-109); Glucose 91 mg/dL (70-110); Potassium 4.1 mmol/L (3.5-5.5); Sodium 142 mmol/L (135-145)
--- NOTE | 2024-07-11 12:44 | CT ---
EXAMINATION TYPE: CT abdomen pelvis wo con DATE OF EXAM: 07/11/2024 COMPARISON: 06/28/2024 INDICATION: colitis DLP: 204.2 mGycm, Automated exposure control for dose reduction was used. CONTRAST: 0 mL of Isovue 300. Study performed without Oral Contrast TECHNIQUE: Axial images were obtained from above the diaphragm to the pubic rami in the axial plane a t 5 mm thick sections. Reconstructed images are reviewed on the computer in the coronal plane. FINDINGS: Limited CT sections are obtained the lung bases. The lung bases are clear. CT ABDOMEN: Liver: Some hepatomegaly is likely present with left lobe liver wrapping towards the spleen. Spleen: Normal. Splenules inferior to the spleen Pancreas: Normal Adrenal glands: The adrenal glands are normal. Gallbladder: Normal Kidneys: No masses are evident. No hydronephrosis is present. No cysts are present. No renal stone s are evident. Aorta: Vascular calcification is within the aorta. There is an infrarenal abdominal aortic fusiform prominence of 3.5 cm this terminates at the bifurcation. Dense calcifications within the common iliac vessels Inferior vena cava: Normal. CT PELVIS: Loops of bowel within the abdomen and pelvis are normal. No bowel wall thickening or adjacent inflamm atory changes and. Fecal debris is scattered within the colon. There are a few diverticula scattered within the sigmoid colon. This study is without oral contrast limiting bowel evaluation. Appendix: Normal as visualized. Urinary bladder: Normal. Genitourinary structures: Uterus and ovaries are identified. Osseous structures: No suspicious lytic or sclerotic lesions. IMPRESSION: 1. Fusiform prominence measuring 3.5 cm mid abdominal aorta. 2. No suspicious bowel abnormality radiographically apparent. Previous bowel wall thickening and infl ammatory changes of the descending colon appear resolved [facility], Workstation: [facility], 07/11/2024 12:41 PM
--- NOTE | 2024-07-11 13:15 | P.CON ---
Consult Note - . Consult date: 07/11/24 Assessment/Plan:: Patient is a 69-year-old female present to the [facility] emergency department with concerns for generalized weakness. Patient was in the hospital diagnosed with colitis recently. Patient has continued symptoms and incontinence. Discomfort of the abdomen has improved however still having some diffuse abdominal pain. Patient has dry heaves and decreased oral intake. Patient states she continues to have diarrhea. Review of Systems ROS Statement: Those systems with pertinent positive or pertinent negative responses have been documented in the HPI. ROS Other: All systems not noted in ROS Statement are negative. Constitutional: Denies: fever Eyes: Denies: eye pain ENT: Denies: ear pain Respiratory: Denies: cough Cardiovascular: Denies: chest pain Endocrine: Denies: fatigue Gastrointestinal: Reports: as per HPI, diarrhea Genitourinary: Denies: dysuria Musculoskeletal: Denies: back pain Skin: Denies: rash Neurological: Denies: weakness Past Medical History Past Medical History: Coronary Artery Disease (CAD), Chest Pain / Angina, COPD, Fibromyalgia, Hyperlipidemia, Hypertension, Osteoarthritis (OA) Additional Past Medical History / Comment(s): Chronic back pain, DDD, bulging discs, scoliosis, osteoporosis., PAST HX JAW FX RT-CAUSES HEADACHES-TAKES TEGRETOL, abdominal aneurysm. colitis Last Myocardial Infarction Date:: 06/29/2020 History of Any Multi-Drug Resistant Organisms: None Reported Past Surgical History: Breast Surgery, Heart Catheterization With Stent, Hysterectomy, Orthopedic Surgery Additional Past Surgical History / Comment(s): Back injections, L patellar surgery, R carpal tunnel release, L breast benign biopsy, sinus surgery, EGD Past Anesthesia/Blood Transfusion Reactions: No Reported Reaction Date of Last Stent Placement:: 05/10/20 Past Psychological History: Anxiety, Depression Smoking Status: Current every day smoker Past Alcohol Use History: None Reported Past Drug Use History: None Reported - Past Family History Mother Family Medical History: Cancer Additional Family Medical History / Comment(s): Mother had lupus and TB Father History Unknown: Yes General Exam Limitations: no limitations General appearance: alert, in no apparent distress Head exam: Present: normocephalic Eye exam: Present: normal appearance ENT exam: Present: mucous membranes dry Neck exam: Present: normal inspection Respiratory exam: Present: normal lung sounds bilaterally Cardiovascular Exam: Present: regular rate, normal rhythm GI/Abdominal exam: Present: soft, tenderness (Mild epigastric tenderness) Extremities exam: Present: normal inspection. Absent: pedal edema, calf tenderness Neurological exam: Present: alert Psychiatric exam: Present: normal affect, normal mood Skin exam: Present: normal color 69 year old female with abdominal pain and diarrhea. Patient recently hospitalized for colitis -Regular Diet -CT-AP ordered -Rocephin/Flagyl -Pain and Nausea Control -Further recs pending imaging Derick Garduno DO [facility] [phone]
[2024-07-12 08:40] LABS: Basophils % (A) 1.2 %; Eosinophils # (A) 0.37 X 10*3/uL (0.04-0.35); Eosinophils % (A) 4.6 %; HCT 29.3 % (37.2-46.3); HGB 9.7 g/dL (12.0-15.0); Lymphocytes # (A) 2.87 X 10*3/uL (0.90-5.00); Lymphocytes % (A) 35.4 %; MCH 32.2 pg (27.0-32.0); MCHC 33.1 g/dL (32.0-37.0); MCV 97.3 FL (80.0-97.0); Mean Platelet Volume 9.3 FL (9.5-12.2); Monocytes # (A) 0.83 X 10*3/uL (0.20-1.00); Monocytes % (A) 10.2 %; NRBC Per 100 WBC 0 X 10*3/uL (0.00-0.01); Neutrophils # (A) 3.89 X 10*3/uL (1.80-7.70); Neutrophils % (A) 48.1 %; Platelet Count 389 X 10*3/uL (140-440); RBC 3.01 X 10*6/uL (4.10-5.20); RDW 14.7 % (11.5-14.5)
[2024-07-12 08:45] LABS: BUN/Creat Ratio 12.33 Ratio (12.00-20.00); Blood Urea Nitrogen 11.1 mg/dL (9.0-27.0); Calcium 8.4 mg/dL (8.7-10.3); Carbon Dioxide 23.2 mmol/L (21.6-31.8); Chloride 111 mmol/L (96-109); Glucose 95 mg/dL (70-110); Potassium 4.3 mmol/L (3.5-5.5); Sodium 143 mmol/L (135-145)
[2024-07-12 13:48] VITALS: BMI 15.0
--- NOTE | 2024-07-12 15:37 | P.PN ---
Subjective Progress Note Date: 07/12/24 CHIEF COMPLAINT: Weakness HISTORY OF PRESENT ILLNESS: Patient continues to complain of abdominal pain mos tly epigastric and lower abdominal pain. Her diarrhea has resolved. She reports having some black stools at home. She had taken Pepto-Bismol. But patient reports that she was having black stools prior to the Pepto-Bismol. She has not had any bowel movements for 3 days. She is having flatus. Denies any nausea or vomiting. CT scan abdomen and pelvis reported no suspicious bowel abnormality apparent. Previous bowel wall thickening inflammatory changes of the descending colon appear to have resolved. Afebrile. Elevated blood pressure. WBC 8.10 Hgb trending downwards 12.8 on admission down to 10.2 now 9.7 platelets 389. Sodium is 143 potassium is 4.3 creatinine has normalized at 0.9 PHYSICAL EXAM: VITAL SIGNS: Reviewed. GENERAL: Well-developed in no acute distress. ABDOMEN: Soft. Nondistended. Epigastric tenderness and mild tenderness across the lower abdomen. NEUROLOGIC: Alert and oriented. Cranial nerves II through XII grossly intact. ASSESSMENT: 1. Abdominal pain and diarrhea 2. Recent hospitalization for colitis with repeat CAT scans showing improvement in the colitis 3. Anemia. Patient reports melanotic stools prior to taking Pepto-Bismol PLAN: -Downgrade diet to clear liquids -Further recommendations forthcoming per surgeon regarding possible endoscopies -Repeat CBC in a.m. Physician [employer] note has been reviewed by physician. Signing provider agrees with the documented findings, assessment, and plan of care. Attestation Patient complaining of generalized abdominal pain. However, on distraction pain appears to be improved. Complaining of diarrhea episodes. CT of the abdomen pelvis was reviewed with no acute abnormalities present at this time with improvement of previous colitis. She has not had a bowel movement since presenting to the hospital. Initially, patient was downgraded to clear liquid diet, however she states that she is hungry and we will advance her diet. She reports possibility of melanotic stool, however with recent colitis episode and taking Pepto-Bismol it is unclear whether this is an acute issue. Hemoglobin will continue to be followed. No plan for surgical intervention at this time Chas Steve DO Objective - Vital Signs Vital signs: Vital Signs Temp 98.0 F 07/12/24 07:00 Pulse 78 07/12/24 07:00 Resp 17 07/12/24 07:00 BP 176/103 07/12/24 07:00 Pulse Ox 96 07/12/24 07:00 FiO2 Intake & Output 07/11/24 07/12/24 07/12/24 18:59 06:59 18:59 Intake Total 1004 240 690 Balance 1004 240 690 Weight 37.195 kg Intake: Intake, IV Titration 650 450 Amount Sodium Chloride 0.9% 1, 600 400 000 ml @ 50 mls/hr IV . Q20H JAKE Rx#:[id number] cefTRIAXone 1 gm In 50 50 Sodium Chloride 0.9% 50 ml @ 100 mls/hr IVPB Q24HR JAKE Rx#:[id number] Oral 354 240 240 Other: Voiding Method Toilet Toilet # Voids 2 4 - Labs CBC & Chem 7: 07/12/24 05:17 07/12/24 05:17 Labs: Abnormal Lab Results - Last 24 Hours (Table) 07/12/24 07/12/24 Range/Units 05:17 05:17 RBC 3.01 L (4.10-5.20) X 10*6/uL Hgb 9.7 L (12.0-15.0) g/dL Hct 29.3 L (37.2-46.3) % MCV 97.3 H (80.0-97.0) FL MCH 32.2 H (27.0-32.0) pg RDW 14.7 H (11.5-14.5) % MPV 9.3 L (9.5-12.2) FL Eosinophils # 0.37 H (0.04-0.35) X 10*3/uL Chloride 111 H (96-109) mmol/L Calcium 8.4 L (8.7-10.3) mg/dL
--- NOTE | 2024-07-12 22:07 | P.PN ---
Subjective This is a pleasant 69 years old female with past medical history of multiple medical problems as below. She was feeling generalized weakness " my legs gave up on me" also complains from weak upper extremities. She was recently hospitalized for colitis Patient recently hospitalized and discharged 2 days ago for similar complaint, she was evaluated by GI service who recommended no indication for endoscopy at that time with IV antibiotics, she was receiving IV ceftriaxone and Flagyl. C. difficile was negative at that time. Patient was discharged on Augmentin x 5 days. We confirmed with the patient states she was taking it at home. Patient denies urinary complaint. She has some chest pain with nausea only but currently she is chest pain-free, no dyspnea no coughing She has dizziness like presyncope but no unilateral weakness or lateralization. Patient states that yesterday she has 2 bowel movement and she could not control her bowel movement. But she is having nausea with no vomiting Also she is complaining from abdominal pain although she states it is severe abdominal pain / however patient looks comfortable and relaxed. She states she has this abdominal pain for about 2 weeks. Are on the sides and going to the central with no specific relieving or precipitating factors. She is little bit because she got bloated easily She has history of COPD but not a lot of dyspnea or coughing currently She has little guarding in the epigastric area but no rebound tenderness Her PCP is Dr. Causey She said she is supposed to follow-up with Dr. Matute. She knows there is no GI service in this hospital and she does not want to be transferred to another hospital with GI service. She is hemodynamically stable, blood pressure slightly on the high side 160/100, she is afebrile She has mild leukocytosis around 13,000 however she has chronic leukocytosis with baseline 10-16 Creatinine at 3.0 with baseline 1-1.4. Liver enzymes unremarkable KUB shows nonspecific bowel pattern EKG showing sinus rhythm at [address]-T changes 07/11 Patient with no nausea vomiting Still complaining from abdominal pain around 10 however abdomen looks soft No bowel movement today General Surgery on the case CT of the abdomen and pelvis without contrast showing fusiform aortic lesion at 3.4 cm, and resolving wall thickening of the descending colon. Continue on antibiotics, her leukocytosis improved down to 9.4, patient has ane onofre, mild at 10.2 with evidence of hemodilution Creatinine significantly improved 3.0 down to 1.4 which is close to baseline Normal saline lowered to 75 mL/h Procalcitonin is -0.08 and patient with no fever Patient symptoms also improving although she has abdominal pain but abdomen soft, at this point we will keep monitoring on antibiotics as patient is improving clinically and on CAT scan 07/12 Patient abdominal pain is improving No bowel movement Patient feels hungry and wants to eat more Surgery team on the case They recommend to keep monitoring hemoglobin tomorrow but no surgical interven tion needed currently Leukocytosis improved, creatinine back to baseline. DC IV fluid Objective - Vital Signs Vital signs: Vital Signs Temp 98.0 F 07/12/24 07:00 Pulse 78 07/12/24 07:00 Resp 17 07/12/24 07:00 BP 176/103 07/12/24 07:00 Pulse Ox 96 07/12/24 07:00 FiO2 Intake & Output 07/11/24 07/12/24 07/12/24 18:59 06:59 18:59 Intake Total 1004 240 240 Balance 1004 240 240 Intake: Intake, IV Titration 650 Amount Sodium Chloride 0.9% 1, 600 000 ml @ 50 mls/hr IV . Q20H JAKE Rx#:[id number] cefTRIAXone 1 gm In 50 Sodium Chloride 0.9% 50 ml @ 100 mls/hr IVPB Q24HR JAKE Rx#:[id number] Oral 354 240 240 Other: Voiding Method Toilet Toilet # Voids 2 4 - Exam GENERAL: The patient is alert and oriented x3, not in any acute distress. Well developed, well nourished. HEENT: Pupils are round and equally reacting to light. EOMI. No scleral icterus. No conjunctival pallor. Normocephalic, atraumatic. No pharyngeal erythema. No thyromegaly. CARDIOVASCULAR: S1 and S2 present. No murmurs, rubs, or gallops. PULMONARY: Chest is clear to auscultation, no wheezing , no crackles. ABDOMEN: Soft, nontender, nondistended, normoactive bowel sounds. No palpable organomegaly. MUSCULOSKELETAL: No joint swelling or deformity. EXTREMITIES: No cyanosis, clubbing, or pedal edema. NEUROLOGICAL: Gross neurological examination did not reveal any focal deficits. SKIN: No rashes. no petechiae. - Labs CBC & Chem 7: 07/12/24 05:17 07/12/24 05:17 Labs: Abnormal Lab Results - Last 24 Hours (Table) 07/12/24 07/12/24 Range/Units 05:17 05:17 RBC 3.01 L (4.10-5.20) X 10*6/uL Hgb 9.7 L (12.0-15.0) g/dL Hct 29.3 L (37.2-46.3) % MCV 97.3 H (80.0-97.0) FL MCH 32.2 H (27.0-32.0) pg RDW 14.7 H (11.5-14.5) % MPV 9.3 L (9.5-12.2) FL Eosinophils # 0.37 H (0.04-0.35) X 10*3/uL Chloride 111 H (96-109) mmol/L Calcium 8.4 L (8.7-10.3) mg/dL Assessment and Plan Assessment: Acute gastroenteritis corrected of infectious etiologies Acute kidney injury on chronic kidney disease stage III Chronic mild leukocytosis Hypertension Hyperlipidemia Osteoarthritis Fibromyalgia COPD, not an active issue Coronary artery disease patient presents because Plan: Continue on antibiotic ceftriaxone and Flagyl patient with no diarrhea currently general surgery consult Discontinue intravenous hydration Hydralazine as needed for high blood pressure Labs and medication were reviewed.. Continue same treatment. Continue with symptomatic treatment. Resume home medication. Monitor labs and vitals. DVT and GI prophylaxis. Further recommendations as per clinical course of the patient DVT prophylaxis: Subcutaneous heparin GI Prophylaxis: Pepcid PT/OT: Pending Prognosis is guarded
[2024-07-13] MEDS: HYDROcodone/APAP 5-325MG 1 EACH TAB PO PRN ×2 (05:57→15:55)
[2024-07-13 09:24] LABS: Basophils # (A) 0.12 X 10*3/uL (0.00-0.10); Basophils % (A) 1.4 %; Eosinophils # (A) 0.72 X 10*3/uL (0.04-0.35); Eosinophils % (A) 8.7 %; HGB 11.7 g/dL (12.0-15.0); Lymphocytes # (A) 2.97 X 10*3/uL (0.90-5.00); Lymphocytes % (A) 35.9 %; MCH 32.3 pg (27.0-32.0); MCHC 32.5 g/dL (32.0-37.0); MCV 99.4 FL (80.0-97.0); Monocytes # (A) 0.82 X 10*3/uL (0.20-1.00); Monocytes % (A) 9.9 %; NRBC Per 100 WBC 0 X 10*3/uL (0.00-0.01); Neutrophils # (A) 3.63 X 10*3/uL (1.80-7.70); Neutrophils % (A) 43.9 %; Platelet Count 458 X 10*3/uL (140-440); RBC 3.62 X 10*6/uL (4.10-5.20); RDW 14.8 % (11.5-14.5); WBC 8.28 X 10*3/uL (4.50-10.00)
[2024-07-13 09:41] LABS: Blood Urea Nitrogen 8.7 mg/dL (9.0-27.0); Calcium 9.4 mg/dL (8.7-10.3); Carbon Dioxide 25.4 mmol/L (21.6-31.8); Chloride 105 mmol/L (96-109); Glucose 100 mg/dL (70-110); Potassium 4.1 mmol/L (3.5-5.5); Sodium 143 mmol/L (135-145)
[2024-07-13] MEDS: ONDANSETRON 4 MG/2 ML VIAL IVP PRN (14:18)
--- NOTE | 2024-07-13 14:55 | P.GSCN ---
History of Present Illness Consult date: 07/13/24 Reason for Consult: Aortic aneurysm Requesting physician: Gordon E Sheet History of present illness: This a pleasant 69-year-old female with a history of known abdominal aortic aneurysm, coronary artery disease status post stenting, COPD, fibromyalgia, hyperlipidemia, hypertension, degenerative disc disease and daily smoker who presented to the emergency department with complaints of lower abdominal pain, diarrhea and nausea. She was just recently hospitalized for 11 days for colitis. She was discharged on 07/07/2024. She was seen by vascular surgery during that hospitalization on 07/01/2024 in consultation for abdominal aortic aneurysm. Patient follows with Dr. Alex for her AAA. She was instructed to follow-up with vascular surgery and there was no indication for any surgical intervention. Patient has been readmitted with similar complaints she had a repeat CT of the abdomen pelvis however without contrast, reporting no suspicious bowel abnormality and previous bowel wall thickening inflammatory radha nges of descending colon appear resolved. Fusiform prominence measuring 3.5 cm mid abdominal aorta. Vascular surgery again consulted for abdominal aortic aneurysm. Patient denies any abdominal pain radiating to her back. States she came in because she had diarrhea that returned, multiple episodes. She has had some nausea. States she is not eating well at home because she does not have the funds for appropriate food. Patient is afebrile, vital signs are stable. Review of Systems A 14 point review systems was completed all pertinent positives and negatives as stated in the HPI. Past Medical History Past Medical History: Coronary Artery Disease (CAD), Chest Pain / Angina, COPD, Fibromyalgia, Hyperlipidemia, Hypertension, Osteoarthritis (OA) Additional Past Medical History / Comment(s): Chronic back pain, DDD, bulging discs, scoliosis, osteoporosis., PAST HX JAW FX RT-CAUSES HEADACHES-TAKES TEGRETOL, abdominal aneurysm. colitis Last Myocardial Infarction Date:: 06/29/2020 History of Any Multi-Drug Resistant Organisms: None Reported Past Surgical History: Breast Surgery, Heart Catheterization With Stent, Hystere ctomy, Orthopedic Surgery Additional Past Surgical History / Comment(s): Back injections, L patellar surgery, R carpal tunnel release, L breast benign biopsy, sinus surgery, EGD Past Anesthesia/Blood Transfusion Reactions: No Reported Reaction Date of Last Stent Placement:: 05/10/20 Past Psychological History: Anxiety, Depression Smoking Status: Current every day smoker Past Alcohol Use History: None Reported Past Drug Use History: None Reported - Past Family History Mother Family Medical History: Cancer Additional Family Medical History / Comment(s): Mother had lupus and TB Father History Unknown: Yes Medications and Allergies Home Medications Medication Instructions Recorded Confirmed Type traZODone HCL 150 mg PO HS 30 Days tablet 04/17/22 07/10/24 Rx Omeprazole 40 mg PO DAILY 10/17/22 07/10/24 History Famotidine [Pepcid] 20 mg PO HS PRN 12/23/22 07/10/24 History Sertraline [Zoloft] 150 mg PO DAILY 12/23/22 07/10/24 History Cyclobenzaprine [Flexeril] 5 mg PO TID PRN 06/14/24 07/10/24 History Dicyclomine [Bentyl] 10 mg PO AC-TID 06/14/24 07/10/24 History Aspirin 81 mg PO DAILY #30 tab 06/17/24 07/10/24 Rx Atorvastatin [Lipitor] 40 mg PO HS #30 tab 06/17/24 07/10/24 Rx HYDROcodone/APAP 5-325MG [Pruden 1 tab PO BID PRN 30 Days #60 tab 06/17/24 07/10/24 Rx 5-325] Isosorbide Mononitrate ER [Imdur] 30 mg PO DAILY 30 Days #30 tab 06/17/24 07/10/24 Rx Metoprolol Tartrate [Lopressor] 50 mg PO DAILY #30 tab 06/17/24 07/10/24 Rx Ranolazine [Ranexa] 500 mg PO Q12HR 30 Days #60 tab 06/17/24 07/10/24 Rx Amoxic-Pot Clav 875-125Mg 1 tab PO Q12HR 5 Days #10 tab 07/07/24 07/10/24 Rx [Augmentin 875-125] Cholestyramine (with Sugar) 4 gm PO TID #90 packet 07/07/24 07/10/24 Rx [Questran Packet] Folic Acid 1 mg PO DAILY #30 tab 07/07/24 07/10/24 Rx Loperamide [Imodium] 2 mg PO QID PRN #40 cap 07/07/24 07/10/24 Rx Nicotine 14Mg/24Hr Patch [Habitrol] 1 patch TRANSDERM DAILY #30 patch 07/07/24 07/10/24 Rx Nystatin 100,000 Unit/ml Susp 500,000 unit PO QID 7 Days #140 ml 07/07/24 07/10/24 Rx [Mycostatin Oral Susp] amLODIPine [Norvasc] 5 mg PO DAILY #30 tab 07/07/24 07/10/24 Rx Allergies Allergy/AdvReac Type Severity Reaction Status Date / Time ibuprofen AdvReac NIGHTMARES Verified 07/10/24 16:18 Iodinated Contrast Media AdvReac Nausea & Verified 07/10/24 16:18 [Iodinated Contrast Media - Vomiting IV Dye] povidone-iodine AdvReac Nausea & Verified 07/10/24 16:18 [From Betadine] Vomiting soap [From Betadine] AdvReac Nausea & Verified 07/10/24 16:18 Vomiting Surgical - Exam Vital Signs Temp Pulse Resp BP Pulse Ox 97.5 F L 92 20 103/65 96 07/10/24 12:00 07/10/24 12:00 07/10/24 12:00 07/10/24 12:00 07/10/24 12:00 General appearance: The patient is alert, oriented, appears in no acute distress. HET: Head is normocephalic and atraumatic. Pupils are equal and reactive. Neck: Supple. Heart: Regular. Lungs: Equal expansion, normal respiratory effort. Abdomen: Soft, mild tenderness, thin, nondistended. Extremities: Normal skin color and turgor. Neurological: No focal deficits. Results - Labs 07/13/24 06:00 07/13/24 06:00 Abnormal Lab Results - Last 24 Hours (Table) 07/13/24 07/13/24 Range/Units 06:00 06:00 RBC 3.62 L (4.10-5.20) X 10*6/uL Hgb 11.7 L (12.0-15.0) g/dL Hct 36.0 L (37.2-46.3) % MCV 99.4 H (80.0-97.0) FL MCH 32.3 H (27.0-32.0) pg RDW 14.8 H (11.5-14.5) % Plt Count 458 H (140-440) X 10*3/uL Eosinophils # 0.72 H (0.04-0.35) X 10*3/uL Basophils # 0.12 H (0.00-0.10) X 10*3/uL Anion Gap 12.60 H (4.00-12.00) mmol/L BUN 8.7 L (9.0-27.0) mg/dL BUN/Creatinine Ratio 8.70 L (12.00-20.00) Ratio Diabetes panel 07/13/24 Range/Units 06:00 Sodium 143 (135-145) mmol/L Potassium 4.1 (3.5-5.5) mmol/L Chloride 105 (96-109) mmol/L Carbon Dioxide 25.4 (21.6-31.8) mmol/L BUN 8.7 L (9.0-27.0) mg/dL Creatinine 1.0 (0.6-1.5) mg/dL Glucose 100 (70-110) mg/dL Calcium 9.4 (8.7-10.3) mg/dL Calcium panel 07/13/24 Range/Units 06:00 Calcium 9.4 (8.7-10.3) mg/dL Pituitary panel 07/13/24 Range/Units 06:00 Sodium 143 (135-145) mmol/L Potassium 4.1 (3.5-5.5) mmol/L Chloride 105 (96-109) mmol/L Carbon Dioxide 25.4 (21.6-31.8) mmol/L BUN 8.7 L (9.0-27.0) mg/dL Creatinine 1.0 (0.6-1.5) mg/dL Glucose 100 (70-110) mg/dL Calcium 9.4 (8.7-10.3) mg/dL Adrenal panel 07/13/24 Range/Units 06:00 Sodium 143 (135-145) mmol/L Potassium 4.1 (3.5-5.5) mmol/L Chloride 105 (96-109) mmol/L Carbon Dioxide 25.4 (21.6-31.8) mmol/L BUN 8.7 L (9.0-27.0) mg/dL Creatinine 1.0 (0.6-1.5) mg/dL Glucose 100 (70-110) mg/dL Calcium 9.4 (8.7-10.3) mg/dL - Imaging Comments: CT abdomen pelvis without contrast reports fusiform prominence measuring 3.5 cm mid abdominal aorta. No suspicious bowel abnormality radiographically apparent. Previous bowel wall thickening and inflammatory changes of descending colon appear resolved. Previous CT abdomen pelvis done on 06/28/2024 reported 3.6 cm abdominal aortic aneurysm which is stable Assessment and Plan Assessment: 1. 3.6 cm infrarenal abdominal aortic aneurysm, asymptomatic. Known, follows with Dr. Alex. 2. Abdominal pain with CT evidence of infectious/inflammatory changes of the descending and sigmoid colon 3. Nausea, vomiting and diarrhea, resolved 4. Coronary artery disease status post stent 5. COPD 6. Smoker Plan: Patient recently seen by vascular surgery for AAA, current CT abdomen pelvis is noncontrast. Previous CT abdomen pelvis with contrast shows stable infrarenal abdominal aortic aneurysm. There is no indication for any vascular surgical intervention. This is a stable aneurysm that patient has been following with induction machine operator Dr. Alex. Patient is instructed to follow-up with vascular surgery on outpatient for surveillance of AAA. Thank you for this consultation, we will sign off at this time. The impression and plan of care has been dictated as directed. I performed a history and examination of this patient, discussed the same with the dictator. I agree with the dictator's note ,documented as a scribe. Any additional findings or plans will be noted.
[2024-07-13] MEDS: bisacodyL 10 MG SUPP RECTAL STA (15:48)
--- NOTE | 2024-07-13 19:49 | P.PN ---
Subjective This is a pleasant 69 years old female with past medical history of multiple medical problems as below. She was feeling generalized weakness " my legs gave up on me" also complains from weak upper extremities. She was recently hospitalized for colitis Patient recently hospitalized and discharged 2 days ago for similar complaint, she was evaluated by GI service who recommended no indication for endoscopy at that time with IV antibiotics, she was receiving IV ceftriaxone and Flagyl. C. difficile was negative at that time. Patient was discharged on Augmentin x 5 days. We confirmed with the patient states she was taking it at home. Patient denies urinary complaint. She has some chest pain with nausea only but currently she is chest pain-free, no dyspnea no coughing She has dizziness like presyncope but no unilateral weakness or lateralization. Patient states that yesterday she has 2 bowel movement and she could not control her bowel movement. But she is having nausea with no vomiting Also she is complaining from abdominal pain although she states it is severe abdominal pain / however patient looks comfortable and relaxed. She states she has this abdominal pain for about 2 weeks. Are on the sides and going to the central with no specific relieving or precipitating factors. She is little bit because she got bloated easily She has history of COPD but not a lot of dyspnea or coughing currently She has little guarding in the epigastric area but no rebound tenderness Her PCP is Dr. Causey She said she is supposed to follow-up with Dr. Matute. She knows there is no GI service in this hospital and she does not want to be transferred to another hospital with GI service. She is hemodynamically stable, blood pressure slightly on the high side 160/100, she is afebrile She has mild leukocytosis around 13,000 however she has chronic leukocytosis with baseline 10-16 Creatinine at 3.0 with baseline 1-1.4. Liver enzymes unremarkable KUB shows nonspecific bowel pattern EKG showing sinus rhythm at [address]-T changes 07/11 Patient with no nausea vomiting Still complaining from abdominal pain around 10 however abdomen looks soft No bowel movement today General Surgery on the case CT of the abdomen and pelvis without contrast showing fusiform aortic lesion at 3.4 cm, and resolving wall thickening of the descending colon. Continue on antibiotics, her leukocytosis improved down to 9.4, patient has ane onofre, mild at 10.2 with evidence of hemodilution Creatinine significantly improved 3.0 down to 1.4 which is close to baseline Normal saline lowered to 75 mL/h Procalcitonin is -0.08 and patient with no fever Patient symptoms also improving although she has abdominal pain but abdomen soft, at this point we will keep monitoring on antibiotics as patient is improving clinically and on CAT scan 07/12 Patient abdominal pain is improving No bowel movement Patient feels hungry and wants to eat more Surgery team on the case They recommend to keep monitoring hemoglobin tomorrow but no surgical interven tion needed currently Leukocytosis improved, creatinine back to baseline. DC IV fluid 07/13 Patient remains with significant epigastric and midline abdominal pain and tenderness, she is asking with her daughter for increasing her Charlotte from twice daily and to 4 times a day. The patient and the daughter had concerns about her aneurysm. Although suspicion for bleeding aneurysm is low we consulted vascular surgery. They recommend continue conservative management and follow-up outpatient. She is followed also by surgery team and kept on clear liquid diet. Objective - Vital Signs Vital signs: Vital Signs Temp 97.4 F L 07/13/24 13:21 Pulse 65 07/13/24 13:21 Resp 18 07/13/24 13:21 BP 115/74 07/13/24 13:21 Pulse Ox 95 07/13/24 13:21 FiO2 Intake & Output 07/12/24 07/13/24 07/13/24 18:59 06:59 18:59 Intake Total 926 480 Output Total 2 Balance 926 -2 480 Weight 37.195 kg Intake: Intake, IV Titration 450 Amount Sodium Chloride 0.9% 1, 400 000 ml @ 50 mls/hr IV . Q20H JAKE Rx#:[id number] cefTRIAXone 1 gm In 50 Sodium Chloride 0.9% 50 ml @ 100 mls/hr IVPB Q24HR JAKE Rx#:[id number] Oral 476 480 Output: Urine 2 Other: Voiding Method Toilet Toilet # Voids 1 - Exam GENERAL: The patient is alert and oriented x3, not in any acute distress. Well developed, well nourished. HEENT: Pupils are round and equally reacting to light. EOMI. No scleral icterus. No conjunctival pallor. Normocephalic, atraumatic. No pharyngeal erythema. No thyromegaly. CARDIOVASCULAR: S1 and S2 present. No murmurs, rubs, or gallops. PULMONARY: Chest is clear to auscultation, no wheezing , no crackles. ABDOMEN: Soft, nontender, nondistended, normoactive bowel sounds. No palpable organomegaly. MUSCULOSKELETAL: No joint swelling or deformity. EXTREMITIES: No cyanosis, clubbing, or pedal edema. NEUROLOGICAL: Gross neurological examination did not reveal any focal deficits. SKIN: No rashes. no petechiae. - Labs CBC & Chem 7: 07/13/24 06:00 07/13/24 06:00 Labs: Abnormal Lab Results - Last 24 Hours (Table) 07/13/24 07/13/24 Range/Units 06:00 06:00 RBC 3.62 L (4.10-5.20) X 10*6/uL Hgb 11.7 L (12.0-15.0) g/dL Hct 36.0 L (37.2-46.3) % MCV 99.4 H (80.0-97.0) FL MCH 32.3 H (27.0-32.0) pg RDW 14.8 H (11.5-14.5) % Plt Count 458 H (140-440) X 10*3/uL Eosinophils # 0.72 H (0.04-0.35) X 10*3/uL Basophils # 0.12 H (0.00-0.10) X 10*3/uL Anion Gap 12.60 H (4.00-12.00) mmol/L BUN 8.7 L (9.0-27.0) mg/dL BUN/Creatinine Ratio 8.70 L (12.00-20.00) Ratio Assessment and Plan Assessment: Acute gastroenteritis corrected of infectious etiologies Acute kidney injury on chronic kidney disease stage III Chronic mild leukocytosis Hypertension Hyperlipidemia Osteoarthritis Fibromyalgia COPD, not an active issue Coronary artery disease patient presents because Plan: Continue on antibiotic ceftriaxone and Flagyl patient with no diarrhea currently general surgery consult Vascular surgery recommended no surgical intervention for her aortic aneurysm and follow-up outpatient Discontinue intravenous hydration Hydralazine as needed for high blood pressure Labs and medication were reviewed.. Continue same treatment. Continue with symptomatic treatment. Resume home medication. Monitor labs and vitals. DVT and GI prophylaxis. Further recommendations as per clinical course of the patient DVT prophylaxis: Subcutaneous heparin GI Prophylaxis: Pepcid PT/OT: Pending Prognosis is guarded
--- NOTE | 2024-07-13 21:26 | P.PN ---
Objective - Vital Signs Vital signs: Vital Signs Temp 97.4 F L 07/13/24 13:21 Pulse 65 07/13/24 13:21 Resp 18 07/13/24 13:21 BP 115/74 07/13/24 13:21 Pulse Ox 95 07/13/24 13:21 FiO2 Intake & Output 07/13/24 07/13/24 07/14/24 06:59 18:59 06:59 Intake Total 956 Output Total 2 Balance -2 956 Intake: Oral 956 Output: Urine 2 Other: Voiding Method Toilet # Voids 1 1 - Labs CBC & Chem 7: 07/13/24 06:00 07/13/24 06:00 Labs: Abnormal Lab Results - Last 24 Hours (Table) 07/13/24 07/13/24 Range/Units 06:00 06:00 RBC 3.62 L (4.10-5.20) X 10*6/uL Hgb 11.7 L (12.0-15.0) g/dL Hct 36.0 L (37.2-46.3) % MCV 99.4 H (80.0-97.0) FL MCH 32.3 H (27.0-32.0) pg RDW 14.8 H (11.5-14.5) % Plt Count 458 H (140-440) X 10*3/uL Eosinophils # 0.72 H (0.04-0.35) X 10*3/uL Basophils # 0.12 H (0.00-0.10) X 10*3/uL Anion Gap 12.60 H (4.00-12.00) mmol/L BUN 8.7 L (9.0-27.0) mg/dL BUN/Creatinine Ratio 8.70 L (12.00-20.00) Ratio Assessment and Plan Assessment: 1. Abdominal pain and diarrhea 2. Recent hospitalization for colitis with repeat CAT scans showing improvement in the colitis 3. Anemia. Patient reports melanotic stools prior to taking Pepto-Bismol PLAN suppository x 1 continue clear liquid diet Time with Patient: Less than 30
[2024-07-14 08:39] LABS: Basophils # (A) 0.14 X 10*3/uL (0.00-0.10); Basophils % (A) 1.8 %; Eosinophils # (A) 0.74 X 10*3/uL (0.04-0.35); Eosinophils % (A) 9.6 %; HCT 33.1 % (37.2-46.3); HGB 10.7 g/dL (12.0-15.0); Lymphocytes # (A) 3.06 X 10*3/uL (0.90-5.00); Lymphocytes % (A) 39.7 %; MCH 31.6 pg (27.0-32.0); MCHC 32.3 g/dL (32.0-37.0); MCV 97.6 FL (80.0-97.0); Mean Platelet Volume 9.6 FL (9.5-12.2); Monocytes # (A) 0.61 X 10*3/uL (0.20-1.00); Monocytes % (A) 7.9 %; NRBC Per 100 WBC 0 X 10*3/uL (0.00-0.01); Neutrophils # (A) 3.14 X 10*3/uL (1.80-7.70); Neutrophils % (A) 40.7 %; Platelet Count 440 X 10*3/uL (140-440); RBC 3.39 X 10*6/uL (4.10-5.20); RDW 14.7 % (11.5-14.5); WBC 7.71 X 10*3/uL (4.50-10.00)
[2024-07-14 09:11] LABS: Blood Urea Nitrogen 17.4 mg/dL (9.0-27.0); Calcium 9.5 mg/dL (8.7-10.3); Carbon Dioxide 27.9 mmol/L (21.6-31.8); Chloride 102 mmol/L (96-109); Glucose 100 mg/dL (70-110); Potassium 4.3 mmol/L (3.5-5.5); Sodium 139 mmol/L (135-145)
--- NOTE | 2024-07-14 09:29 | P.PN ---
Subjective Progress Note Date: 07/14/24 Principal diagnosis: AAA Patient is seen and examined sitting up in bed eating her breakfast. She is currently complaining of a headache. States abdominal pain improved. She was given a suppository yesterday states she had a soft bowel movement yesterday and 1 again this morning. Denies any nausea or vomiting. She has been afebrile. Objective - Vital Signs Vital signs: Vital Signs Temp 98.2 F 07/14/24 07:00 Pulse 87 07/14/24 07:00 Resp 17 07/14/24 07:00 BP 154/92 07/14/24 07:00 Pulse Ox 95 07/14/24 07:00 FiO2 Intake & Output 07/13/24 07/14/24 07/14/24 18:59 06:59 18:59 Intake Total 956 Balance 956 Intake: Oral 956 Other: Voiding Method Toilet # Voids 1 1 - Exam General appearance: The patient is alert, oriented, appears in no acute distress. HET: Head is normocephalic and atraumatic. Pupils are equal and reactive. Neck: Supple. Heart: Regular. Lungs: Equal expansion, normal respiratory effort. Abdomen: Soft, thin, reports diffuse tenderness, nondistended. Extremities: Normal skin color and turgor. Neurological: No focal deficits. Strength and sensation are grossly intact. - Labs CBC & Chem 7: 07/14/24 04:25 07/14/24 04:25 Labs: Abnormal Lab Results - Last 24 Hours (Table) 07/13/24 07/13/24 Range/Units 06:00 06:00 RBC 3.62 L (4.10-5.20) X 10*6/uL Hgb 11.7 L (12.0-15.0) g/dL Hct 36.0 L (37.2-46.3) % MCV 99.4 H (80.0-97.0) FL MCH 32.3 H (27.0-32.0) pg RDW 14.8 H (11.5-14.5) % Plt Count 458 H (140-440) X 10*3/uL Eosinophils # 0.72 H (0.04-0.35) X 10*3/uL Basophils # 0.12 H (0.00-0.10) X 10*3/uL Anion Gap 12.60 H (4.00-12.00) mmol/L BUN 8.7 L (9.0-27.0) mg/dL BUN/Creatinine Ratio 8.70 L (12.00-20.00) Ratio Assessment and Plan Assessment: 1. 3.6 cm infrarenal abdominal aortic aneurysm, asymptomatic. Known, follows with Dr. Alex. 2. Abdominal pain with CT evidence of infectious/inflammatory changes of the descending and sigmoid colon 3. Nausea, vomiting and diarrhea, resolved 4. Coronary artery disease status post stent 5. COPD 6. Smoker Plan: Patient recently seen by vascular surgery for AAA, current CT abdomen pelvis is noncontrast. Previous CT abdomen pelvis with contrast shows stable infrarenal abdominal aortic aneurysm. There is no indication for any vascular surgical intervention. This is a stable aneurysm that patient has been following with flatwork presser Dr. Alex. Patient is instructed to follow-up with vascular surgery on outpatient for surveillance of AAA. Thank you for this consultation, she is cleared for discharge from vascular surgery. We will sign off at this time. The impression and plan of care has been dictated as directed. I performed a history and examination of this patient, discussed the same with the dictator. I agree with the dictator's note ,documented as a scribe. Any additional findings or plans will be noted.
--- NOTE | 2024-07-14 13:30 | P.PN ---
Subjective Progress Note Date: 07/14/24 CHIEF COMPLAINT: Abdominal pain HISTORY OF PRESENT ILLNESS: Patient reports her abdominal pain has improved. She had a normal bowel movement. Diarrhea resolved. She reports no blood in the stools. Denies any black stools. She is tolerating diet. She feels ready for discharge. Afebrile. WBC 7.71 Hgb 10.7 platelets 440 PHYSICAL EXAM: VITAL SIGNS: Reviewed. GENERAL: Well-developed in no acute distress. ABDOMEN: Soft. Nondistended. Nontender NEUROLOGIC: Alert and oriented. Cranial nerves II through XII grossly intact. ASSESSMENT: 1. Abdominal pain and diarrhea 2. Recent hospitalization for colitis with repeat CAT scans showing improvement in the colitis 3. Anemia. Hemoglobin stable. No further black stools. Unclear if prior black stools were because of Pepto-Bismol PLAN: -Patient can be discharged from surgical standpoint -No surgical intervention planned -Continue regular diet Physician Pneumatic Riveter note has been reviewed by physician. Signing provider agrees with the documented findings, assessment, and plan of care. Objective - Vital Signs Vital signs: Vital Signs Temp 98.2 F 07/14/24 07:00 Pulse 87 07/14/24 07:00 Resp 17 07/14/24 08:00 BP 154/92 07/14/24 07:00 Pulse Ox 95 07/14/24 07:00 FiO2 Intake & Output 07/13/24 07/14/24 07/14/24 18:59 06:59 18:59 Intake Total 956 Balance 956 Intake: Oral 956 Other: Voiding Method Toilet Toilet # Voids 1 1 - Labs CBC & Chem 7: 07/14/24 04:25 07/14/24 04:25 Labs: Abnormal Lab Results - Last 24 Hours (Table) 07/14/24 07/14/24 Range/Units 04:25 04:25 RBC 3.39 L (4.10-5.20) X 10*6/uL Hgb 10.7 L (12.0-15.0) g/dL Hct 33.1 L (37.2-46.3) % MCV 97.6 H (80.0-97.0) FL RDW 14.7 H (11.5-14.5) % Eosinophils # 0.74 H (0.04-0.35) X 10*3/uL Basophils # 0.14 H (0.00-0.10) X 10*3/uL Est GFR (CKD-EPI) 49 L (>=60) Assessment and Plan Assessment: 69 yo female with improved colitis -tolerating diet -pain improved -stable for discharge Time with Patient: Less than 30
[2024-07-14 14:37] VITALS: BP 110/68; PULSE 69; RESP 18; TEMP 97.5
--- NOTE | 2024-07-19 14:27 | P.DS ---
Providers Date of admission: 07/10/24 15:48 Attending physician: Gordon Giang MD Consults: 07/10/24 17:44 Consult Physician Urgent Consulting Provider: Derick Garduno Consult Reason/Comments: abd pain Do you want consulting provider notified?: Yes 07/13/24 13:59 Consult Physician Routine Consulting Provider: Nuha Loving Consult Reason/Comments: aortic aneueysm Do you want consulting provider notified?: Yes Primary care physician: [facility] Course: Diagnoses: Acute gastroenteritis concerned for infectious etiologies Acute kidney injury on chronic kidney disease stage III Chronic mild leukocytosis Hypertension Hyperlipidemia Osteoarthritis Fibromyalgia COPD, not an active issue Coronary artery disease patient presents because Hospital course: This is a pleasant 69 years old female with past medical history of multiple medical problems as below. She was feeling generalized weakness " my legs gave up on me" also complains from weak upper extremities. She was recently hospitalized for colitis Patient recently hospitalized and discharged 2 days ago for similar complaint, she was evaluated by GI service who recommended no indication for endoscopy at that time with IV antibiotics, she was receiving IV ceftriaxone and Flagyl. C. difficile was negative at that time. Patient was discharged on Augmentin x 5 days. We confirmed with the patient states she was taking it at home. CT of the abdomen and pelvis without contrast showing fusiform aortic lesion at 3.4 cm, and resolving wall thickening of the descending colon. Continue on antibiotics, her leukocytosis improved down.Patient Remained afebrile throughout her stay. Her symptoms improved and she tolerates diet. She still have some pain which is thought secondary to her history of irritable bowel syndrome. She takes Bentyl. Also patient was advised vascular surgery team for suspected aortic aneurysm but this is chronic and no need for surgical intervention per vascular surgery team. Patient and daughter at bedside agreeing that she can go home today. She denies any other new complaint Patient was cleared for discharge by both general surgery and vascular surgery teams Problems and management plan were discussed with the patient and he verbalized understanding and acceptance Patient was found stable and can be discharged home in guarded prognosis however he needs follow-up as an outpatient. Patient was instructed to follow up with PCP Dr. Wilcox within one week and patient agrees Patient was instructed to follow-up with Dr. Matute chicken stuffer, Dr. Steve from general surgery and Dr. Loving from vascular surgery. 2 weeks after discharge and she agrees Physical exam Gen: patient is a AAOx3, no distress CVS: S1-S2, RRR, no murmur Lungs: B/L CTA, no wheezing Abdomen: soft, no distention, no tenderness, positive bowel sounds Extremity: no leg edema or induration Time spent more than 35 minutes Patient Condition at Discharge: Serious Plan - Discharge Summary New Discharge Prescriptions: New cefUROXime axetiL [Ceftin] 500 mg PO BID 5 Days #10 tab metroNIDAZOLE [Flagyl] 500 mg PO BID 5 Days #10 tab Continue traZODone HCL 150 mg PO HS 30 Days tablet Omeprazole 40 mg PO DAILY Sertraline [Zoloft] 150 mg PO DAILY Famotidine [Pepcid] 20 mg PO HS PRN PRN Reason: GERD Cyclobenzaprine [Flexeril] 5 mg PO TID PRN PRN Reason: Muscle Spasm Aspirin 81 mg PO DAILY #30 tab Atorvastatin [Lipitor] 40 mg PO HS #30 tab Metoprolol Tartrate [Lopressor] 50 mg PO DAILY #30 tab Isosorbide Mononitrate ER [Imdur] 30 mg PO DAILY 30 Days #30 tab Folic Acid 1 mg PO DAILY #30 tab amLODIPine [Norvasc] 5 mg PO DAILY #30 tab Cholestyramine (with Sugar) [Questran Packet] 4 gm PO TID #90 packet Dicyclomine [Bentyl] 10 mg PO AC-TID Ranolazine [Ranexa] 500 mg PO Q12HR 30 Days #60 tab Nicotine 14Mg/24Hr Patch [Habitrol] 1 patch TRANSDERM DAILY #30 patch Loperamide [Imodium] 2 mg PO QID PRN #40 cap PRN Reason: Diarrhea HYDROcodone/APAP 5-325MG [[place] 5-325] 1 tab PO BID PRN #12 tab PRN Reason: Pain Discontinued Amoxic-Pot Clav 875-125Mg [Augmentin 875-125] 1 tab PO Q12HR 5 Days #10 tab Nystatin 100,000 Unit/ml Susp [Mycostatin Oral Susp] 500,000 unit PO QID 7 Days #140 ml Discharge Medication List traZODone HCL 150 mg PO HS 30 Days tablet 04/17/22 [Rx] Omeprazole 40 mg PO DAILY 10/17/22 [History] Famotidine [Pepcid] 20 mg PO HS PRN 12/23/22 [History] Sertraline [Zoloft] 150 mg PO DAILY 12/23/22 [History] Cyclobenzaprine [Flexeril] 5 mg PO TID PRN 06/14/24 [History] Dicyclomine [Bentyl] 10 mg PO AC-TID 06/14/24 [History] Aspirin 81 mg PO DAILY #30 tab 06/17/24 [Rx] Atorvastatin [Lipitor] 40 mg PO HS #30 tab 06/17/24 [Rx] Isosorbide Mononitrate ER [Imdur] 30 mg PO DAILY 30 Days #30 tab 06/17/24 [Rx] Metoprolol Tartrate [Lopressor] 50 mg PO DAILY #30 tab 06/17/24 [Rx] Ranolazine [Ranexa] 500 mg PO Q12HR 30 Days #60 tab 06/17/24 [Rx] Cholestyramine (with Sugar) [Questran Packet] 4 gm PO TID #90 packet 07/07/24 [Rx] Folic Acid 1 mg PO DAILY #30 tab 07/07/24 [Rx] Loperamide [Imodium] 2 mg PO QID PRN #40 cap 07/07/24 [Rx] Nicotine 14Mg/24Hr Patch [Habitrol] 1 patch TRANSDERM DAILY #30 patch 07/07/24 [Rx] amLODIPine [Norvasc] 5 mg PO DAILY #30 tab 07/07/24 [Rx] HYDROcodone/APAP 5-325MG [[place] 5-325] 1 tab PO BID PRN #12 tab 07/14/24 [Rx] cefUROXime axetiL [Ceftin] 500 mg PO BID 5 Days #10 tab 07/14/24 [Rx] metroNIDAZOLE [Flagyl] 500 mg PO BID 5 Days #10 tab 07/14/24 [Rx] Follow up Appointment(s)/Referral(s): Nuha Loving DO [STAFF PHYSICIAN] - 1 Week (vascular surgeon for your aortic aneurysm ) Charla Cornelius MD [STAFF PHYSICIAN] - 10 Days Marium Mazariegos MD [Primary Care Provider] - 1-2 days Chas Steve DO [Doctor of Osteopathic Medicine] - 1 Week Patient Instructions/Handouts: Acute Kidney Injury (DC), Acute Kidney Injury (GEN) Activity/Diet/Wound Care/Special Instructions: low fiber diet activity is restricted till you see your doctor FOLLOW UP DIRECTED, SOONER FOR WORSENING SYMPTOMS, PROBLEMS, OR CONCERNS. Discharge/Stand Alone Forms: Who Do I Call?, Adult [facility] List, Assisted Living Facilities, Community Resources Discharge Disposition: HOME SELF-CARE
== END 2024-07-14 17:20 | disposition home or self-care (01) ==
LOC: EC 11:55 → 6NMEDSUR 15:48
PROVIDERS: ADMIT Internal Medicine; ATTEND Internal Medicine
DX: K52.9 Noninfective gastroenteritis and colitis, unspecified (principal); I12.9 Hypertensive chronic kidney disease with stage 1 through stage 4 chronic kidney disease, or unspecified chronic kidney disease; N17.9 Acute kidney failure, unspecified; N18.30 Chronic kidney disease, stage 3 unspecified; J44.9 Chronic obstructive pulmonary disease, unspecified; R07.9 Chest pain, unspecified; R32 Unspecified urinary incontinence; I25.10 Atherosclerotic heart disease of native coronary artery without angina pectoris; M19.90 Unspecified osteoarthritis, unspecified site; E78.5 Hyperlipidemia, unspecified; M79.7 Fibromyalgia; F32.A Depression, unspecified; F41.9 Anxiety disorder, unspecified; F17.200 Nicotine dependence, unspecified, uncomplicated; Z79.899 Other long term (current) drug therapy; Z95.5 Presence of coronary angioplasty implant and graft; Z79.82 Long term (current) use of aspirin; Z91.041 Radiographic dye allergy status; Z88.8 Allergy status to other drugs, medicaments and biological substances; Z91.048 Other nonmedicinal substance allergy status; Z82.69 Family history of other diseases of the musculoskeletal system and connective tissue
CPT/HCPCS: 96376 ×3; 96365; 96366 ×2; 96372 ×6; 96375 ×2; 96361; 99285; 36415; 93005; 80053; 80048 ×4; 82150; 83690; 85025 ×5; 81001; 84145; 74018; 74176; G0378 ×5; S4990 ×4; J2270 ×4; J0500; J1644 ×5; J2405 ×2; J0696 ×5; J3490

== ENCOUNTER 2024-07-30 12:02 | Observation (INO) | payer MEDICARE ==
--- NOTE | 2024-07-30 12:34 | ED ---
General Adult HPI - General Chief complaint: Nausea/Vomiting/Diarrhea Stated complaint: vomiting Time Seen by Provider: 07/30/24 12:16 Source: patient, family, RN notes reviewed Mode of arrival: wheelchair Limitations: no limitations - History of Present Illness Initial comments: Patient is a 69-year-old female present to the emergency department with c oncerns for nausea and vomiting. Onset of symptoms was yesterday. Patient did have colitis a week ago however that has resolved. Patient has continued retching. Patient states she does have chronic chest discomfort that increases with retching. Patient does feel lightheaded, especially with upright position - Related Data Home Medications Medication Instructions Recorded Confirmed Omeprazole 40 mg PO DAILY 10/17/22 07/30/24 Famotidine [Pepcid] 20 mg PO HS PRN 12/23/22 07/30/24 Sertraline [Zoloft] 150 mg PO DAILY 12/23/22 07/30/24 Cyclobenzaprine [Flexeril] 5 mg PO TID PRN 06/14/24 07/30/24 Dicyclomine [Bentyl] 10 mg PO AC-TID 06/14/24 07/30/24 lisinopriL [Zestril] 2.5 mg PO DAILY 07/30/24 07/30/24 Previous Rx's Medication Instructions Recorded traZODone HCL 150 mg PO HS 30 Days tablet 04/17/22 Aspirin 81 mg PO DAILY #30 tab 06/17/24 Atorvastatin [Lipitor] 40 mg PO HS #30 tab 06/17/24 Isosorbide Mononitrate ER [Imdur] 30 mg PO DAILY 30 Days #30 tab 06/17/24 Metoprolol Tartrate [Lopressor] 50 mg PO DAILY #30 tab 06/17/24 Ranolazine [Ranexa] 500 mg PO Q12HR 30 Days #60 tab 06/17/24 Cholestyramine (with Sugar) 4 gm PO TID #90 packet 07/07/24 [Questran Packet] Folic Acid 1 mg PO DAILY #30 tab 07/07/24 Loperamide [Imodium] 2 mg PO QID PRN #40 cap 07/07/24 Nicotine 14Mg/24Hr Patch [Habitrol] 1 patch TRANSDERM DAILY #30 patch 07/07/24 amLODIPine [Norvasc] 5 mg PO DAILY #30 tab 07/07/24 HYDROcodone/APAP 5-325MG [[place] 1 tab PO BID PRN 30 Days #60 tab 07/22/24 5-325] Allergies Allergy/AdvReac Type Severity Reaction Status Date / Time ibuprofen AdvReac NIGHTMARES Verified 07/30/24 15:02 Iodinated Contrast Media AdvReac Nausea & Verified 07/30/24 15:02 [Iodinated Contrast Media - Vomiting IV Dye] povidone-iodine AdvReac Nausea & Verified 07/30/24 15:02 [From Betadine] Vomiting soap [From Betadine] AdvReac Nausea & Verified 07/30/24 15:02 Vomiting Review of Systems ROS Statement: Those systems with pertinent positive or pertinent negative responses have been documented in the HPI. ROS Other: All systems not noted in ROS Statement are negative. Constitutional: Denies: fever Eyes: Denies: eye pain Respiratory: Denies: dyspnea Cardiovascular: Reports: as per HPI Endocrine: Reports: fatigue Gastrointestinal: Reports: abdominal pain, nausea, vomiting Past Medical History Past Medical History: Coronary Artery Disease (CAD), Chest Pain / Angina, COPD, Fibromyalgia, Hyperlipidemia, Hypertension, Osteoarthritis (OA) Additional Past Medical History / Comment(s): Chronic back pain, DDD, bulging discs, scoliosis, osteoporosis., PAST HX JAW FX RT-CAUSES HEADACHES-TAKES TEGRETOL, abdominal aneurysm. colitis Last Myocardial Infarction Date:: 06/29/2020 History of Any Multi-Drug Resistant Organisms: None Reported Past Surgical History: Breast Surgery, Heart Catheterization With Stent, Hysterectomy, Orthopedic Surgery Additional Past Surgical History / Comment(s): Back injections, L patellar surgery, R carpal tunnel release, L breast benign biopsy, sinus surgery, EGD Past Anesthesia/Blood Transfusion Reactions: No Reported Reaction Date of Last Stent Placement:: 05/10/20 Past Psychological History: Anxiety, Depression Smoking Status: Current every day smoker Past Alcohol Use History: None Reported Past Drug Use History: None Reported - Past Family History Mother Family Medical History: Cancer Additional Family Medical History / Comment(s): Mother had lupus and TB Father History Unknown: Yes General Exam Limitations: no limitations General appearance: alert Head exam: Present: atraumatic Eye exam: Present: normal appearance, PERRL, EOMI ENT exam: Present: mucous membranes dry Neck exam: Present: normal inspection Respiratory exam: Present: normal lung sounds bilaterally Cardiovascular Exam: Present: tachycardia Expanded Peripheral pulses: 2+: Radial (R), Radial (L), Posterior Tibialis (R), Posterior Tibialis (L) GI/Abdominal exam: Present: soft, tenderness (Mild to moderate epigastric tenderness), pulsatile mass (Patient has known history of aneurysm) Extremities exam: Present: normal inspection. Absent: pedal edema, calf tenderness Neurological exam: Present: alert Psychiatric exam: Present: normal affect, normal mood Skin exam: Present: normal color Course Vital Signs 07/30/24 07/30/24 07/30/24 12:09 12:30 13:33 Temperature 97.5 F L Pulse Rate 130 H 115 H 89 Respiratory 18 18 16 Rate Blood Pressure 87/58 100/71 130/87 O2 Sat by Pulse 98 94 L 96 Oximetry 07/30/24 14:30 Temperature Pulse Rate 95 Respiratory 18 Rate Blood Pressure 127/97 O2 Sat by Pulse 96 Oximetry EKG Findings - EKG Results: EKG: interpreted by ERMD (Left axis), sinus rhythm, normal QRS, normal ST/T EKG shows: tachycardia Medical Decision Making - Medical Decision Making Was pt. sent in by a medical professional or institution (, PA, BIG DATA SOFTWARE ENGINEER, urgent care, hospital, or [place] health care facility...) When possible be specific @ -No Did you speak to anyone other than the patient for history (EMS, parent, family, police, friend...)? What history was obtained from this source @ -Daughter is present helps provide history of symptoms including onset Did you review nursing and triage notes (agree or disagree)? Why? @ -I reviewed and agree with nursing and triage notes Were old charts reviewed (outside hosp., previous admission, EMS record, old EKG, old radiological studies, urgent care reports/EKG's, [place] health care facility records)? Report findings @ -No old charts were reviewed Differential Diagnosis (chest pain, altered mental status, abdominal pain women, abdominal pain men, vaginal bleeding, weakness, fever, dyspnea, syncope, headache, dizziness, GI bleed, back pain, seizure, CVA, palpatations, mental health, musculoskeletal)? @ -Differential Abdominal Pain Women: Appendicitis, Cholecystitis, diverticulosis, ischemic bowel, pancreatitis, hepatitis, UTI, gastroenteritis, AAA, incarcerated hernia, bowel obstruction, constipation, inflammatory bowel, hepatitis, peptic ulcer disease, splenic infarction, perforated viscus, vulvitis, ovarian torsion, PID, kidney stone, placenta abruption, this is not meant to be an all-inclusive list EKG interpreted by me (3pts min.). @ -As above X-rays interpreted by me (1pt min.). @ -None done CT interpreted by me (1pt min.). @ -CT scan of aorta has concern for some mild aneurysmal changes as well as stenosis and small distal focal dissection external iliac artery U/S interpreted by me (1pt. min.). @ -None done What testing was considered but not performed or refused? (CT, X-rays, U/S, l abs)? Why? @ -None What meds were considered but not given or refused? Why? @ -None Did you discuss the management of the patient with other professionals (professionals i.e. , PA, BIG DATA SOFTWARE ENGINEER, lab, RT, psych nurse, medical social consultant, expediter service order, teacher, corporate trust officer, therapeutic case manager)? Give summary @ -Case was discussed with Dr. Del Rio who will admit covering for Dr. Velásquez Was smoking cessation discussed for >3mins.? @ -No Was critical care preformed (if so, how long)? @ -31 minutes critical care time Were there social determinants of health that impacted care today? How? (Homelessness, low income, unemployed, alcoholism, drug addiction, transportation, low edu. Level, literacy, decrease access to med. care, skilled nursing, rehab)? @ -No Was there de-escalation of care discussed even if they declined (Discuss DNR or withdrawal of care, Hospice)? DNR status @ -No What co-morbidities impacted this encounter? (DM, HTN, Smoking, COPD, CAD, Cancer, CVA, ARF, Chemo, Hep., AIDS, mental health diagnosis, sleep apnea, morbid obesity)? @ -None Was patient admitted / discharged? Hospital course, mention meds given and route, prescriptions, significant lab abnormalities, going to OR and other pertinent info. @ -Patient presents with nausea vomiting and hypotension. Patient significantly improved with IV fluids. Patient will be admitted. Admission orders written. Vascular will be placed on consult to review CT findings Undiagnosed new problem with uncertain prognosis? @ -No Drug Therapy requiring intensive monitoring for toxicity (Heparin, Nitro, Insulin, Cardizem)? @ -No Were any procedures done? @ -No Diagnosis/symptom? @ -Vomiting, hypotension Acute, or Chronic, or Acute on Chronic? @ -Acute, acute Uncomplicated (without systemic symptoms) or Complicated (systemic symptoms)? @ -Complicated with hypotension Side effects of treatment? @ -No Exacerbation, Progression, or Severe Exacerbation? @ -No Poses a threat to life or bodily function? How? (Chest pain, [place], CA, pneumonia, PE, COPD, DKA, ARF, appy, cholecystitis, CVA, Diverticulitis, Homicidal, Suicidal, threat to staff... and all critical care pts) @ -Threat to life based off hypotension and threat to renal function - Lab Data Result diagrams: 07/30/24 12:33 07/30/24 12:33 Lab Results 07/30/24 07/30/24 07/30/24 Range/Units 12:33 12:33 12:33 WBC 12.9 H (3.8-10.6) k/uL RBC 4.44 (3.80-5.40) m/uL Hgb 13.9 (11.4-16.0) gm/dL Hct 43.4 (34.0-46.0) % MCV 97.6 (80.0-100.0) fL MCH 31.2 (25.0-35.0) pg MCHC 32.0 (31.0-37.0) g/dL RDW 14.3 (11.5-15.5) % Plt Count 580 H (150-450) k/uL MPV 7.4 Neutrophils % 64 % Lymphocytes % 30 % Monocytes % 4 % Eosinophils % 1 % Basophils % 1 % Neutrophils # 8.2 H (1.3-7.7) k/uL Lymphocytes # 3.8 (1.0-4.8) k/uL Monocytes # 0.5 (0-1.0) k/uL Eosinophils # 0.1 (0-0.7) k/uL Basophils # 0.1 (0-0.2) k/uL PT 11.8 (10.0-12.5) sec INR 1.1 (<1.2) APTT 26.6 (22.0-30.0) sec Sodium (137-145) mmol/L Potassium (3.5-5.1) mmol/L Chloride (98-107) mmol/L Carbon Dioxide (22-30) mmol/L Anion Gap mmol/L BUN (7-17) mg/dL Creatinine (0.52-1.04) mg/dL Est GFR (CKD-EPI)AfAm (>60 ml/min/1.73 sqM) Est GFR (CKD-EPI)NonAf (>60 ml/min/1.73 sqM) Glucose (74-99) mg/dL Calcium (8.4-10.2) mg/dL Total Bilirubin (0.2-1.3) mg/dL AST (14-36) U/L ALT (4-34) U/L Alkaline Phosphatase (38-126) U/L Troponin I (0.000-0.034) ng/mL Total Protein (6.3-8.2) g/dL Albumin (3.5-5.0) g/dL Amylase (30-110) U/L Lipase (23-300) U/L Urine Color Yellow Urine Appearance Cloudy H (Clear) Urine pH 6.0 (5.0-8.0) Ur Specific Edson 1.023 (1.001-1.035) Urine Protein 2+ H (Negative) Urine Glucose (UA) Negative (Negative) Urine Ketones Negative (Negative) Urine Blood Negative (Negative) Urine Nitrite Negative (Negative) Urine Bilirubin Negative (Negative) Urine Urobilinogen <2.0 (<2.0) mg/dL Ur Leukocyte Esterase Negative (Negative) Urine RBC 3 (0-5) /hpf Urine WBC 4 (0-5) /hpf Ur Squamous Epith Cells 6 H (0-4) /hpf Hyaline Casts 35 H (0-2) /lpf Urine Mucus Occasional H (None) /hpf Influenza Type A (PCR) (Not Detectd) Influenza Type B (PCR) (Not Detectd) RSV (PCR) (Not Detectd) SARS-CoV-2 (PCR) (Not Detectd) 07/30/24 07/30/24 07/30/24 Range/Units 12:33 12:33 12:33 WBC (3.8-10.6) k/uL RBC (3.80-5.40) m/uL Hgb (11.4-16.0) gm/dL Hct (34.0-46.0) % MCV (80.0-100.0) fL MCH (25.0-35.0) pg MCHC (31.0-37.0) g/dL RDW (11.5-15.5) % Plt Count (150-450) k/uL MPV Neutrophils % % Lymphocytes % % Monocytes % % Eosinophils % % Basophils % % Neutrophils # (1.3-7.7) k/uL Lymphocytes # (1.0-4.8) k/uL Monocytes # (0-1.0) k/uL Eosinophils # (0-0.7) k/uL Basophils # (0-0.2) k/uL PT (10.0-12.5) sec INR (<1.2) APTT (22.0-30.0) sec Sodium 133 L (137-145) mmol/L Potassium 3.6 (3.5-5.1) mmol/L Chloride 98 (98-107) mmol/L Carbon Dioxide 22 (22-30) mmol/L Anion Gap 13 mmol/L BUN 18 H (7-17) mg/dL Creatinine 1.43 H (0.52-1.04) mg/dL Est GFR (CKD-EPI)AfAm 43 (>60 ml/min/1.73 sqM) Est GFR (CKD-EPI)NonAf 37 (>60 ml/min/1.73 sqM) Glucose 185 H (74-99) mg/dL Calcium 10.1 (8.4-10.2) mg/dL Total Bilirubin 0.6 (0.2-1.3) mg/dL AST 29 (14-36) U/L ALT 12 (4-34) U/L Alkaline Phosphatase 96 (38-126) U/L Troponin I <0.012 (0.000-0.034) ng/mL Total Protein 7.8 (6.3-8.2) g/dL Albumin 4.6 (3.5-5.0) g/dL Amylase 141 H (30-110) U/L Lipase 390 H (23-300) U/L Urine Color Urine Appearance (Clear) Urine pH (5.0-8.0) Ur Specific Edson (1.001-1.035) Urine Protein (Negative) Urine Glucose (UA) (Negative) Urine Ketones (Negative) Urine Blood (Negative) Urine Nitrite (Negative) Urine Bilirubin (Negative) Urine Urobilinogen (<2.0) mg/dL Ur Leukocyte Esterase (Negative) Urine RBC (0-5) /hpf Urine WBC (0-5) /hpf Ur Squamous Epith Cells (0-4) /hpf Hyaline Casts (0-2) /lpf Urine Mucus (None) /hpf Influenza Type A (PCR) Not Detected (Not Detectd) Influenza Type B (PCR) Not Detected (Not Detectd) RSV (PCR) Not Detected (Not Detectd) SARS-CoV-2 (PCR) Not Detected (Not Detectd) Critical Care Time Critical Care Time: Yes Total Critical Care Time: 31 Disposition Clinical Impression: Dehydration, Hypotension Disposition: ADMITTED IP TO THIS [facility] Condition: Serious Is patient prescribed a controlled substance at d/c from ED?: No Referrals: Marium Mazariegos MD [Primary Care Provider] - 1-2 days Time of Disposition: 15:55
[2024-07-30] MEDS: SODIUM CHLORIDE 0.9% 1,000 ML IV STA ×2 (12:39→14:20)
[2024-07-30] MEDS: SODIUM CHLORIDE 0.9% 500 ML 500 ML IV STA (12:40)
[2024-07-30] MEDS: ONDANSETRON 4 MG/2 ML VIAL IVP STA (12:40)
[2024-07-30] MEDS: FAMOTIDINE 20 MG/2 ML VIAL IV STA (12:42)
[2024-07-30 12:52] LABS: Basophils # (A) 0.1 k/uL (0-0.2); Basophils % (A) 1 %; Eosinophils # (A) 0.1 k/uL (0-0.7); Eosinophils % (A) 1 %; HCT 43.4 % (34.0-46.0); HGB 13.9 gm/dL (11.4-16.0); Lymphocytes # (A) 3.8 k/uL (1.0-4.8); Lymphocytes % (A) 30 %; MCH 31.2 pg (25.0-35.0); MCV 97.6 fL (80.0-100.0); Mean Platelet Volume 7.4; Monocytes # (A) 0.5 k/uL (0-1.0); Monocytes % (A) 4 %; Neutrophils # (A) 8.2 k/uL (1.3-7.7); Neutrophils % (A) 64 %; Platelet Count 580 k/uL (150-450); RBC 4.44 m/uL (3.80-5.40); RDW 14.3 % (11.5-15.5); WBC 12.9 k/uL (3.8-10.6)
[2024-07-30 13:03] LABS: ALT 12 U/L (4-34); African American GFR (CKD) 43 (>60 ml/min/1.73 sqM); Albumin 4.6 g/dL (3.5-5.0); Amylase 141 U/L (30-110); Anion Gap 13 mmol/L; Blood Urea Nitrogen 18 mg/dL (7-17); Calcium 10.1 mg/dL (8.4-10.2); Carbon Dioxide 22 mmol/L (22-30); Chloride 98 mmol/L (98-107); Glucose 185 mg/dL (74-99); Lipase 390 U/L (23-300); Non-African American GFR(CKD) 37 (>60 ml/min/1.73 sqM); Sodium 133 mmol/L (137-145); Total Bilirubin 0.6 mg/dL (0.2-1.3); Total Protein 7.8 g/dL (6.3-8.2)
[2024-07-30 13:04] LABS: INR 1.1 (<1.2); Partial Thromboplastin Time 26.6 sec (22.0-30.0); Prothrombin Time 11.8 sec (10.0-12.5)
[2024-07-30 13:08] LABS: AST 29 U/L (14-36); Alkaline Phosphatase 96 U/L (38-126); Potassium 3.6 mmol/L (3.5-5.1)
[2024-07-30] MEDS: diphenhydrAMINE 50 MG/ML 1 ML VIAL IVP STA (13:29)
[2024-07-30] MEDS: methylPREDNISolone SOD SUCCI 125 MG/2 ML VIAL IV STA (13:30)
[2024-07-30 14:03] LABS: Appearance,Urine Cloudy (Clear); Bilirubin,Urine Negative (Negative); Blood,Urine Negative (Negative); Color,Urine Yellow; Glucose,Urine (UA) Negative (Negative); Hyaline Casts,Urine 35 /lpf (0-2); Ketones,Urine Negative (Negative); Leukocyte Esterase,Urine Negative (Negative); Mucus,Urine Occasional /hpf; Nitrite,Urine Negative (Negative); Protein,Urine 2+ (Negative); RBC,Urine 3 /hpf (0-5); Specific Gravity,Urine 1.023 (1.001-1.035); Squamous Epithelial Cell,Urine 6 /hpf (0-4); Urobilinogen,Urine <2.0 mg/dL (<2.0); WBC,Urine 4 /hpf (0-5)
[2024-07-30] MEDS ORDERED: HYDROcodone/APAP 5-325MG 1 EACH TAB PO PRN (14:20)
--- NOTE | 2024-07-30 14:20 | P.HPIM ---
History of Present Illness 69-year-old female came in with complaints of nausea vomiting which resolved and dry heaving presently. Patient denied any alcohol abuse denied any marijuana use. Patient was also complaining of epigastric pain sharp in nature nonrad iating associate with headache patient is concerned about the rupture of thoracic aortic aneurysm rupture because of which thoracic aortic CT was done in ER results of which are pending. Patient was recently hospitalized for colitis. Patient does not believe it is acid reflux or peptic ulcer disease as she does have that history and this pain is different. Troponin is negative EKG is significant for sinus tachycardia without any significant ST-T wave changes which are new. Serum sodium is 133. Patient's lipase is 390 REVIEW OF SYSTEMS: All other systems are negative except those mentioned in the HPI PHYSICAL EXAMINATION: GENERAL: The patient is alert and oriented x3 thin built cachectic female HEENT: Pupils are round and equally reacting to light. EOMI. No scleral icterus. No conjunctival pallor. Normocephalic, atraumatic. No pharyngeal erythema. No thyromegaly. CARDIOVASCULAR: S1 and S2 present. No murmurs, rubs, or gallops. PULMONARY: Chest is clear to auscultation, no wheezing or crackles. ABDOMEN: Soft, some epigastric abdominal tenderness r, nondistended, normoactive bowel sounds. No palpable organomegaly. MUSCULOSKELETAL: No joint swelling or deformity. EXTREMITIES: No cyanosis, clubbing, or pedal edema. NEUROLOGICAL: Gross neurological examination did not reveal any focal deficits. SKIN: No rashes. Assessment and plan Epigastric abdominal pain: Possible differentials being gastritis or peptic ulcer disease, low possibility of pancreatitis although her lipase is elevated amylase is elevated, not high enough to say pancreatitis low possibility aneu rysmal rupture. Will obtain ultrasound provide any gallbladder pathology. Patient will be started on Protonix IV fluids -Hypovolemic hyponatremia IV fluids as mentioned above -Acute renal failure on chronic kidney disease stage II, vasomotor nephropathy or prerenal azotemia IV fluids as mentioned above -COPD without any acute exacerbation counseling regarding cessation of smoking cessation was provided -Coronary disease with stents in the past -Depression DVT prophylaxis: Subcutaneous heparin twice a day Past Medical History Past Medical History: Coronary Artery Disease (CAD), Chest Pain / Angina, COPD, Fibromyalgia, Hyperlipidemia, Hypertension, Osteoarthritis (OA) Additional Past Medical History / Comment(s): Chronic back pain, DDD, bulging discs, scoliosis, osteoporosis., PAST HX JAW FX RT-CAUSES HEADACHES-TAKES TEGRETOL, abdominal aneurysm. colitis Last Myocardial Infarction Date:: 06/29/2020 History of Any Multi-Drug Resistant Organisms: None Reported Past Surgical History: Breast Surgery, Heart Catheterization With Stent, H ysterectomy, Orthopedic Surgery Additional Past Surgical History / Comment(s): Back injections, L patellar surgery, R carpal tunnel release, L breast benign biopsy, sinus surgery, EGD Past Anesthesia/Blood Transfusion Reactions: No Reported Reaction Date of Last Stent Placement:: 05/10/20 Past Psychological History: Anxiety, Depression Smoking Status: Current every day smoker Past Alcohol Use History: None Reported Past Drug Use History: None Reported - Past Family History Mother Family Medical History: Cancer Additional Family Medical History / Comment(s): Mother had lupus and TB Father History Unknown: Yes Medications and Allergies Home Medications Medication Instructions Recorded Confirmed Type traZODone HCL 150 mg PO HS 30 Days tablet 04/17/22 07/10/24 Rx Omeprazole 40 mg PO DAILY 10/17/22 07/10/24 History Famotidine [Pepcid] 20 mg PO HS PRN 12/23/22 07/10/24 History Sertraline [Zoloft] 150 mg PO DAILY 12/23/22 07/10/24 History Cyclobenzaprine [Flexeril] 5 mg PO TID PRN 06/14/24 07/10/24 History Dicyclomine [Bentyl] 10 mg PO AC-TID 06/14/24 07/10/24 History Aspirin 81 mg PO DAILY #30 tab 06/17/24 07/10/24 Rx Atorvastatin [Lipitor] 40 mg PO HS #30 tab 06/17/24 07/10/24 Rx Isosorbide Mononitrate ER [Imdur] 30 mg PO DAILY 30 Days #30 tab 06/17/24 07/10/24 Rx Metoprolol Tartrate [Lopressor] 50 mg PO DAILY #30 tab 06/17/24 07/10/24 Rx Ranolazine [Ranexa] 500 mg PO Q12HR 30 Days #60 tab 06/17/24 07/10/24 Rx Cholestyramine (with Sugar) 4 gm PO TID #90 packet 07/07/24 07/10/24 Rx [Questran Packet] Folic Acid 1 mg PO DAILY #30 tab 07/07/24 07/10/24 Rx Loperamide [Imodium] 2 mg PO QID PRN #40 cap 07/07/24 07/10/24 Rx Nicotine 14Mg/24Hr Patch [Habitrol] 1 patch TRANSDERM DAILY #30 patch 07/07/24 07/10/24 Rx amLODIPine [Norvasc] 5 mg PO DAILY #30 tab 07/07/24 07/10/24 Rx cefUROXime axetiL [Ceftin] 500 mg PO BID 5 Days #10 tab 07/14/24 Rx metroNIDAZOLE [Flagyl] 500 mg PO BID 5 Days #10 tab 07/14/24 Rx HYDROcodone/APAP 5-325MG [[place] 1 tab PO BID PRN 30 Days #60 tab 07/22/24 Rx 5-325] Allergies Allergy/AdvReac Type Severity Reaction Status Date / Time ibuprofen AdvReac NIGHTMARES Verified 07/10/24 16:18 Iodinated Contrast Media AdvReac Nausea & Verified 07/10/24 16:18 [Iodinated Contrast Media - Vomiting IV Dye] povidone-iodine AdvReac Nausea & Verified 07/10/24 16:18 [From Betadine] Vomiting soap [From Betadine] AdvReac Nausea & Verified 07/10/24 16:18 Vomiting Physical Exam Vitals: Vital Signs Temp Pulse Resp BP Pulse Ox 07/30/24 13:33 89 16 130/87 96 07/30/24 12:30 115 H 18 100/71 94 L 07/30/24 12:09 97.5 F L 130 H 18 87/58 98 Intake and Output 07/29/24 07/30/24 07/30/24 22:59 06:59 14:59 Other: Weight 37.195 kg Results CBC & Chem 7: 07/30/24 12:33 07/30/24 12:33 Labs: Abnormal Lab Results - Last 24 Hours (Table) 07/30/24 07/30/24 07/30/24 Range/Units 12:33 12:33 12:33 WBC 12.9 H (3.8-10.6) k/uL Plt Count 580 H (150-450) k/uL Neutrophils # 8.2 H (1.3-7.7) k/uL Sodium 133 L (137-145) mmol/L BUN 18 H (7-17) mg/dL Creatinine 1.43 H (0.52-1.04) mg/dL Glucose 185 H (74-99) mg/dL Amylase 141 H (30-110) U/L Lipase 390 H (23-300) U/L Urine Appearance Cloudy H (Clear) Urine Protein 2+ H (Negative) Ur Squamous Epith Cells 6 H (0-4) /hpf Hyaline Casts 35 H (0-2) /lpf Urine Mucus Occasional H (None) /hpf
--- NOTE | 2024-07-30 14:29 | CT ---
EXAMINATION TYPE: CT angio thor/abd pel aorta CT DLP: 607.3 mGycm, Automated exposure control for dose reduction was used. DATE OF EXAM: 07/30/2024 2:10 PM COMPARISON: CT abdomen and pelvis 07/11/2024, CT chest 02/04/2024. CLINICAL INDICATION:Female, 69 years old with history of pain, aneurysm hx; PHH, pain, aneurysm hx, h ypotension TECHNIQUE: Dissection protocol: Multiple axial CT images of the chest, abdomen, and pelvis were obtai jon prior and to the administration of IV contrast. 3-D reformats and maximum intensity projection fo rmat were performed on a separate workstation. Then the abdomen was scanned after administration of 1 00 cc of Isovue 370 IV contrast. FINDINGS: ARTERIAL VASCULATURE: No evidence of intramural hematoma or dissection of the aorta. The thoracic aor ta is normal in course. Ectasia descending thoracic aorta near the hiatus measuring up to 3.3 cm. Ane urysmal dilatation of the infrarenal mid abdominal aorta measuring up to 3.5 cm which is stable from prior exam. There is eccentric mural thrombus identified. Mild atherosclerotic calcification of the a julien and its branches. The celiac access and SMA are widely patent. The single left renal artery is w idely patent. There is high-grade stenosis with limited visualization of the single right renal arter y at its origin. There is enhancement of the distal aspect of the right renal artery branches. The IM A is patent with some stenosis at its origin. Multilevel moderate atherosclerotic plaque of the bilat eral common iliac arteries. The bilateral internal and external iliac arteries are patent. The bilate ral common femoral arteries are patent with mild atherosclerotic calcification. There is a 9 mm focal dissection of the right external iliac artery (series 501, image 230). Great arch vessels patent and normal in course. Mild stenosis of the origin of the left common carotid artery secondary to calcifi ed plaque. PULMONARY ARTERIAL VASCULATURE: Normal caliber. No evidence of filling defect to suggest pulmonary em bolus. VENOUS SYSTEM: Unremarkable. Lungs/pleura: No pleural effusion, pneumothorax, focal consolidation. Minimal dependent subsegmental atelectasis within the bilateral lower lobes. Mild centrilobular emphysematous changes. No suspicious pulmonary nodule or mass. Heart: Within normal limits. No sizable pericardial effusion. Moderate coronary arterial calcificatio ns. Mediastinum: No evidence of adenopathy. Lower Neck: No significant findings. Abdomen: Liver: Unremarkable. Gallbladder and Bile ducts: Mildly distended gallbladder. No biliary duct dilatation.. Pancreas: Unremarkable. Spleen: Punctate calcified granuloma. Adrenal glands: Unremarkable. Kidneys and Ureters: No hydronephrosis or nephrolithiasis. Mild atrophy of the right kidney compared to the left. Decreased enhancement of the right kidney compared to the left. Stomach and Bowel: Unremarkable. No evidence of bowel obstruction. Peritoneum: No evidence of pneumoperitoneum, free fluid, or adenopathy. Bladder: Unremarkable. Reproductive: Uterus is surgically absent.. Abdominal wall/soft tissues: Unremarkable. Musculoskeletal: The osseous structures appear intact. Mild multilevel degenerative disc disease. IMPRESSION: 1. No evidence for aortic dissection. 2. Ectasia of the descending thoracic aorta near the hiatus measuring up to 3.[address] able infrarenal abdominal aortic aneurysm measuring up to 3.5 cm. 3. Moderate atherosclerotic disease of the aorta is branches with a short segment 9 mm focal dissecti on of the right external iliac artery. 4. High-grade stenosis versus occlusion involving the origin of the right renal artery with distal re constitution. There is decreased enhancement of the right kidney compared to the left. [facility], , 07/30/2024 2:26 PM
[2024-07-30] MEDS: PANTOPRAZOLE 40 MG/10 ML VIAL IVP SCH (14:32)
[2024-07-30] MEDS: MORPHINE SULFATE 2 MG/ML SYRINGE IVP STA (14:35)
[2024-07-30] MEDS ORDERED: ACETAMINOPHEN TAB 325 MG TAB PO PRN (15:56)
[2024-07-30] MEDS ORDERED: NALOXONE 0.4 MG/ML 1 ML VIAL IV PRN (15:56)
[2024-07-30] MEDS ORDERED: HYDROmorphone 2 MG/ML 1 ML SYRINGE IVP PRN (15:56)
[2024-07-30] MEDS ORDERED: CYCLOBENZAPRINE 5 MG TAB PO PRN (15:57)
--- NOTE | 2024-07-30 16:16 | US ---
EXAMINATION TYPE: US gallbladder DATE OF EXAM: 07/30/2024 COMPARISON: 07/30/2024 CLINICAL INDICATION: Female, 69 years old with history of Abdominal pain; Pain started yesterday. TECHNIQUE: Grayscale and color Doppler imaging of the right upper quadrant. FINDINGS: EXAM MEASUREMENTS: Liver Length: 12.7 cm Gallbladder Wall: 0.16 cm CBD: 0.51 cm Right Kidney: 7.6 x 3.8 x 3.7 cm TRAPPER BIRD NOTES: *Exam is limited due to gas. Pancreas: Most of the pancreas is visualized and shows no gross abnormal value. Liver: Slight coarsened appearance, likely technical. No focal lesion seen. Gallbladder: Hydropic. No abnormal wall thickening, surrounding fluid, or shadowing stones. Evidence for sonographic Dang's sign: Patient feels tenderness in the RUQ. CBD: Portions seen appear wnl Right Kidney: Appears small with cortical thinning. No hydronephrosis or obvious masses seen. Detaile d parenchymal assessment limited due to bowel gas. IMPRESSION: 1. Hydropic gallbladder probably due to fasting state. If further imaging assessment of the gallbladd er is desired, HIDA scan can be considered. No gallstones or ancillary findings of acute cholecystiti s. 2. No biliary ductal dilatation. 3. Query underlying chronic kidney disease. [facility], , 07/30/2024 4:13 PM
[2024-07-30] MEDS: NICOTINE 14MG/24HR PATCH TRANSDERM SCH (17:06)
[2024-07-30] MEDS: SODIUM CHLORIDE 0.9% 1,000 ML IV SCH (17:08)
[2024-07-30] MEDS: CHOLESTYRAMINE (WITH SUGAR) 4 GM PACKET PO SCH (17:35)
[2024-07-30] MEDS: DICYCLOMINE 10 MG CAP PO SCH (18:45)
[2024-07-30] MEDS: HYDROmorphone 0.5 MG/0.5 ML SYRINGE IVP PRN (18:47)
[2024-07-30] MEDS: HEPARIN SODIUM,PORCINE 5,000 UNIT/ML 1 ML VIAL SQ SCH (20:59)
[2024-07-30] MEDS: ATORVASTATIN 40 MG TAB PO SCH (20:59)
[2024-07-30] MEDS: RANOLAZINE 500 MG TAB.ER.12H PO SCH (21:00)
[2024-07-30] MEDS: traZODone HCL 50 MG TAB PO SCH (21:00)
[2024-07-31 07:20] VITALS: BP 153/79; PULSE 83; RESP 17; TEMP 98.1
[2024-07-31] MEDS ORDERED: NICOTINE 14MG/24HR PATCH TRANSDERM SCH (09:00)
[2024-07-31 09:04] LABS: Basophils # (A) 0.02 X 10*3/uL (0.00-0.10); Basophils % (A) 0.3 %; Eosinophils # (A) 0 X 10*3/uL (0.04-0.35); Eosinophils % (A) 0 %; HCT 31.5 % (37.2-46.3); HGB 10.3 g/dL (12.0-15.0); Lymphocytes # (A) 1.74 X 10*3/uL (0.90-5.00); Lymphocytes % (A) 27.5 %; MCH 32.2 pg (27.0-32.0); MCHC 32.7 g/dL (32.0-37.0); MCV 98.4 FL (80.0-97.0); Mean Platelet Volume 10.1 FL (9.5-12.2); Monocytes # (A) 0.17 X 10*3/uL (0.20-1.00); Monocytes % (A) 2.7 %; NRBC Per 100 WBC 0 X 10*3/uL (0.00-0.01); Neutrophils # (A) 4.37 X 10*3/uL (1.80-7.70); Neutrophils % (A) 69.2 %; Platelet Count 342 X 10*3/uL (140-440); RDW 14.3 % (11.5-14.5); WBC 6.32 X 10*3/uL (4.50-10.00)
[2024-07-31 09:20] LABS: ALT 5 U/L (8-44); AST 18 U/L (13-35); Albumin 3.4 g/dL (3.8-4.9); Albumin/Globulin Ratio 1.42 Ratio (1.60-3.17); Alkaline Phosphatase 70 U/L (41-126); Blood Urea Nitrogen 20.3 mg/dL (9.0-27.0); Calcium 8.9 mg/dL (8.7-10.3); Carbon Dioxide 20.9 mmol/L (21.6-31.8); Chloride 105 mmol/L (96-109); Globulin 2.4 g/dL (1.6-3.3); Glucose 128 mg/dL (70-110); Potassium 3.9 mmol/L (3.5-5.5); Sodium 137 mmol/L (135-145); Total Bilirubin <0.2 mg/dL (0.3-1.2); Total Protein 5.8 g/dL (6.2-8.2)
--- NOTE | 2024-07-31 10:18 | P.GSCN ---
History of Present Illness Consult date: 07/31/24 History of present illness: Patient is a 69-year-old female well-known to our service from multiple previous consultations. She has a history of known abdominal aortic aneurysm and thoracic ectasia. She has coronary artery disease status post stenting COPD, fibromyalgia, hyperlipidemia, hypertension and a daily smoker. She presented to the ER for issues with nausea and vomiting, last visit she had issues with colitis. She was seen by vascular surgery during the hospitalization 07/01/2024 and again on 07/13/2024. She does follow with Dr. Diaz for her abdominal aortic aneurysm. There is no significant changes or concerns in this regard. She states that she has been unable to keep anything down and has been having epigastric type pains as well as some degree of chest pains. She denies any new back or leg pains. She denies any different or changed abdominal pains otherwise. Past Medical History Past Medical History: Coronary Artery Disease (CAD), Chest Pain / Angina, COPD, Fibromyalgia, Hyperlipidemia, Hypertension, Osteoarthritis (OA) Additional Past Medical History / Comment(s): Chronic back pain, DDD, bulging discs, scoliosis, osteoporosis., PAST HX JAW FX RT-CAUSES HEADACHES-TAKES TEGRETOL, abdominal aneurysm. colitis Last Myocardial Infarction Date:: 06/29/2020 History of Any Multi-Drug Resistant Organisms: None Reported Past Surgical History: Breast Surgery, Heart Catheterization With Stent, Hyste rectomy, Orthopedic Surgery Additional Past Surgical History / Comment(s): Back injections, L patellar surgery, R carpal tunnel release, L breast benign biopsy, sinus surgery, EGD Past Anesthesia/Blood Transfusion Reactions: No Reported Reaction Date of Last Stent Placement:: 05/10/20 Past Psychological History: Anxiety, Depression Additional Psychological History / Comment(s): Pt resides with her daughter. She uses no assistive device. She does not drive, her daughters or public transportation take her to appointments. She manages her own medication. Smoking Status: Current every day smoker Past Alcohol Use History: None Reported Additional Past Alcohol Use History / Comment(s): Pt started smoking in 1967 and is a 1ppd smoker. Past Drug Use History: None Reported Additional Drug Use History / Comment(s): no additional drug use stated by patient at this time - Past Family History Mother Family Medical History: Cancer Additional Family Medical History / Comment(s): Mother had lupus and TB Father History Unknown: Yes Medications and Allergies Home Medications Medication Instructions Recorded Confirmed Type traZODone HCL 150 mg PO HS 30 Days tablet 04/17/22 07/30/24 Rx Omeprazole 40 mg PO DAILY 10/17/22 07/30/24 History Famotidine [Pepcid] 20 mg PO HS PRN 12/23/22 07/30/24 History Sertraline [Zoloft] 150 mg PO DAILY 12/23/22 07/30/24 History Cyclobenzaprine [Flexeril] 5 mg PO TID PRN 06/14/24 07/30/24 History Dicyclomine [Bentyl] 10 mg PO AC-TID 06/14/24 07/30/24 History Aspirin 81 mg PO DAILY #30 tab 06/17/24 07/30/24 Rx Atorvastatin [Lipitor] 40 mg PO HS #30 tab 06/17/24 07/30/24 Rx Isosorbide Mononitrate ER [Imdur] 30 mg PO DAILY 30 Days #30 tab 06/17/24 07/30/24 Rx Metoprolol Tartrate [Lopressor] 50 mg PO DAILY #30 tab 06/17/24 07/30/24 Rx Ranolazine [Ranexa] 500 mg PO Q12HR 30 Days #60 tab 06/17/24 07/30/24 Rx Cholestyramine (with Sugar) 4 gm PO TID #90 packet 07/07/24 07/30/24 Rx [Questran Packet] Folic Acid 1 mg PO DAILY #30 tab 07/07/24 07/30/24 Rx Loperamide [Imodium] 2 mg PO QID PRN #40 cap 07/07/24 07/30/24 Rx Nicotine 14Mg/24Hr Patch [Habitrol] 1 patch TRANSDERM DAILY #30 patch 07/07/24 07/30/24 Rx amLODIPine [Norvasc] 5 mg PO DAILY #30 tab 07/07/24 07/30/24 Rx HYDROcodone/APAP 5-325MG [[place] 1 tab PO BID PRN 30 Days #60 tab 07/22/24 07/30/24 Rx 5-325] lisinopriL [Zestril] 2.5 mg PO DAILY 07/30/24 07/30/24 History Allergies Allergy/AdvReac Type Severity Reaction Status Date / Time ibuprofen AdvReac NIGHTMARES Verified 07/30/24 15:02 Iodinated Contrast Media AdvReac Nausea & Verified 07/30/24 15:02 [Iodinated Contrast Media - Vomiting IV Dye] povidone-iodine AdvReac Nausea & Verified 07/30/24 15:02 [From Betadine] Vomiting soap [From Betadine] AdvReac Nausea & Verified 07/30/24 15:02 Vomiting Surgical - Exam Vital Signs Temp Pulse Resp BP Pulse Ox 97.5 F L 130 H 18 87/58 98 07/30/24 12:09 07/30/24 12:09 07/30/24 12:09 07/30/24 12:09 07/30/24 12:09 General appearance: The patient is alert, oriented, appears in no acute distress., Chronically under nourished appearing HET: Head is normocephalic and atraumatic. Pupils are equal and reactive. Neck: Supple. Heart: Regular. Lungs: Equal expansion, normal respiratory effort. Abdomen: Soft, mild tenderness, thin, nondistended. Extremities: Normal skin color and turgor. Neurological: No focal deficits. Results Again reviewed the current CT angiogram of the abdomen and pelvis. Abdominal aortic aneurysm appears similar in findings. The atherosclerotic disease appears similar in previous findings. No significant mesenteric atherosclerotic disease noted. Thoracic ectasia again similar. No vascular findings concerning on current image. - Labs 07/31/24 02:52 07/31/24 02:52 Abnormal Lab Results - Last 24 Hours (Table) 07/30/24 07/30/24 07/30/24 Range/Units 12:33 12:33 12:33 WBC 12.9 H (3.8-10.6) k/uL RBC (4.10-5.20) X 10*6/uL Hgb (12.0-15.0) g/dL Hct (37.2-46.3) % MCV (80.0-97.0) FL MCH (27.0-32.0) pg Plt Count 580 H (150-450) k/uL Neutrophils # 8.2 H (1.3-7.7) k/uL Monocytes # (0.20-1.00) X 10*3/uL Eosinophils # (0.04-0.35) X 10*3/uL Sodium 133 L (137-145) mmol/L Carbon Dioxide (21.6-31.8) mmol/L BUN 18 H (7-17) mg/dL Creatinine 1.43 H (0.52-1.04) mg/dL BUN/Creatinine Ratio (12.00-20.00) Ratio Glucose 185 H (74-99) mg/dL Total Bilirubin (0.3-1.2) mg/dL ALT (8-44) U/L Total Protein (6.2-8.2) g/dL Albumin (3.8-4.9) g/dL Albumin/Globulin Ratio (1.60-3.17) Ratio Amylase 141 H (30-110) U/L Lipase 390 H (23-300) U/L Urine Appearance Cloudy H (Clear) Urine Protein 2+ H (Negative) Ur Squamous Epith Cells 6 H (0-4) /hpf Hyaline Casts 35 H (0-2) /lpf Urine Mucus Occasional H (None) /hpf 07/31/24 07/31/24 Range/Units 02:52 02:52 WBC (3.8-10.6) k/uL RBC 3.20 L (4.10-5.20) X 10*6/uL Hgb 10.3 L (12.0-15.0) g/dL Hct 31.5 L (37.2-46.3) % MCV 98.4 H (80.0-97.0) FL MCH 32.2 H (27.0-32.0) pg Plt Count (150-450) k/uL Neutrophils # (1.3-7.7) k/uL Monocytes # 0.17 L (0.20-1.00) X 10*3/uL Eosinophils # 0 L (0.04-0.35) X 10*3/uL Sodium (137-145) mmol/L Carbon Dioxide 20.9 L (21.6-31.8) mmol/L BUN (7-17) mg/dL Creatinine (0.52-1.04) mg/dL BUN/Creatinine Ratio 20.30 H (12.00-20.00) Ratio Glucose 128 H (74-99) mg/dL Total Bilirubin <0.2 L (0.3-1.2) mg/dL ALT 5 L (8-44) U/L Total Protein 5.8 L (6.2-8.2) g/dL Albumin 3.4 L (3.8-4.9) g/dL Albumin/Globulin Ratio 1.42 L (1.60-3.17) Ratio Amylase (30-110) U/L Lipase (23-300) U/L Urine Appearance (Clear) Urine Protein (Negative) Ur Squamous Epith Cells (0-4) /hpf Hyaline Casts (0-2) /lpf Urine Mucus (None) /hpf Diabetes panel 07/30/24 07/31/24 Range/Units 12:33 02:52 Sodium 133 L 137 (137-145) mmol/L Potassium 3.6 3.9 (3.5-5.1) mmol/L Chloride 98 105 (98-107) mmol/L Carbon Dioxide 22 20.9 L (22-30) mmol/L BUN 18 H 20.3 (7-17) mg/dL Creatinine 1.43 H 1.0 (0.52-1.04) mg/dL Glucose 185 H 128 H (74-99) mg/dL Calcium 10.1 8.9 (8.4-10.2) mg/dL AST 29 18 (14-36) U/L ALT 12 5 L (4-34) U/L Alkaline Phosphatase 96 70 (38-126) U/L Total Protein 7.8 5.8 L (6.3-8.2) g/dL Albumin 4.6 3.4 L (3.5-5.0) g/dL Calcium panel 07/30/24 07/31/24 Range/Units 12:33 02:52 Calcium 10.1 8.9 (8.4-10.2) mg/dL Albumin 4.6 3.4 L (3.5-5.0) g/dL Pituitary panel 07/30/24 07/31/24 Range/Units 12:33 02:52 Sodium 133 L 137 (137-145) mmol/L Potassium 3.6 3.9 (3.5-5.1) mmol/L Chloride 98 105 (98-107) mmol/L Carbon Dioxide 22 20.9 L (22-30) mmol/L BUN 18 H 20.3 (7-17) mg/dL Creatinine 1.43 H 1.0 (0.52-1.04) mg/dL Glucose 185 H 128 H (74-99) mg/dL Calcium 10.1 8.9 (8.4-10.2) mg/dL Adrenal panel 07/30/24 07/31/24 Range/Units 12:33 02:52 Sodium 133 L 137 (137-145) mmol/L Potassium 3.6 3.9 (3.5-5.1) mmol/L Chloride 98 105 (98-107) mmol/L Carbon Dioxide 22 20.9 L (22-30) mmol/L BUN 18 H 20.3 (7-17) mg/dL Creatinine 1.43 H 1.0 (0.52-1.04) mg/dL Glucose 185 H 128 H (74-99) mg/dL Calcium 10.1 8.9 (8.4-10.2) mg/dL Total Bilirubin 0.6 <0.2 L (0.2-1.3) mg/dL AST 29 18 (14-36) U/L ALT 12 5 L (4-34) U/L Alkaline Phosphatase 96 70 (38-126) U/L Total Protein 7.8 5.8 L (6.3-8.2) g/dL Albumin 4.6 3.4 L (3.5-5.0) g/dL Assessment and Plan Assessment: 1. 3.6 cm infrarenal abdominal aortic aneurysm, asymptomatic. Known, follows with Dr. Alex. 2. Abdominal pain 3. Nausea, vomiting 4. Coronary artery disease status post stent 5. COPD 6. Smoker Plan: CT angiogram reviewed. Stable findings on imaging. Patient may follow-up with larry car operator Dr. Diaz for continued surveillance of imaging. No vascular interventions indicated at this time. Discussed with patient as she seemingly understands. She states she is more concerned that her heart or GI might be further issue at this time.
[2024-07-31] MEDS: SERTRALINE 50 MG TAB PO SCH (10:34)
[2024-07-31] MEDS: FOLIC ACID 1 MG TAB PO SCH (10:34)
[2024-07-31] MEDS: ASPIRIN 81 MG PO SCH (10:34)
[2024-07-31 12:31] LABS: Amylase 77 U/L (30-110); Lipase 186 U/L (23-300)
--- NOTE | 2024-07-31 13:45 | P.DS ---
Providers Date of admission: 07/30/24 15:57 Attending physician: Arnold Ren MD Consults: 07/30/24 15:56 Consult Physician Routine Consulting Provider: Nuha Loving Consult Reason/Comments: Evaluate CT findings of aorta Do you want consulting provider notified?: Yes Primary care physician: Marium Mazariegos [facility] Course: Final Diagnosis -Epigastric abdominal pain: Possible differentials being gastritis or peptic ulcer disease, low possibility of pancreatitis although her lipase is elevated amylase is elevated, enzymes are normal today. -Hypovolemic hyponatremia IV fluids as mentioned above -Acute renal failure on chronic kidney disease stage II, vasomotor nephropathy or prerenal azotemia IV fluids as mentioned above. Renal function normal after hydration. -COPD without any acute exacerbation counseling regarding cessation of smoking cessation was provided -Coronary disease with stents in the past -Depression -3.6 cm infrarenal abdominal aortic aneurysm asymptomatic known follows with Dr. Diaz Discharge Disposition patient stable for discharge home recommend to follow-up with GI services outpatient for the epigastric pain and continue on protonix. Hospital Course This is a 69-year-old female came in with complaints of nausea vomiting which resolved and dry heaving presently. Patient denied any alcohol abuse denied any marijuana use. Patient was also complaining of epigastric pain sharp in nature nonradiating associate with headache patient is concerned about the rupture of thoracic aortic aneurysm rupture because of which thoracic aortic CT was done in ER results of which are pending. Patient was recently hospitalized for colitis. Patient does not believe it is acid reflux or peptic ulcer disease as she does have that history and this pain is different. Troponin is negative EKG is significant for sinus tachycardia without any significant ST-T wave changes which are new. Serum sodium is 133. Patient's lipase is 390. Patient had the thoracic aorta CT she does have known history of aortic aneurysm and thoracic ectasia. Vascular had saw the patient for this 2 weeks ago there is no changes for this. Blood work today reveals a white count of 6.32, hemoglobin 10.3, sodium 137, BUN of 20, creatinine 1.0. Please see medication reconciliation for a list of current medications. Thank you for allowing us to participate in the care of this patient. The impression and plan of care has been dictated by Shruti Brary, Nurse Practitioner as directed. Dr. Shanel MD I have performed a history and physical examination and medical decision making of this patient, discussed the same with the dictator, and agree with the dictators assessment and plan as written, documented as a scribe. Based on total visit time, I have performed more than 50% of this visit. Patient Condition at Discharge: Stable Plan - Discharge Summary New Discharge Prescriptions: No Action traZODone HCL 150 mg PO HS 30 Days tablet Omeprazole 40 mg PO DAILY Sertraline [Zoloft] 150 mg PO DAILY Famotidine [Pepcid] 20 mg PO HS PRN PRN Reason: GERD Cyclobenzaprine [Flexeril] 5 mg PO TID PRN PRN Reason: Muscle Spasm Aspirin 81 mg PO DAILY #30 tab Atorvastatin [Lipitor] 40 mg PO HS #30 tab Metoprolol Tartrate [Lopressor] 50 mg PO DAILY #30 tab Isosorbide Mononitrate ER [Imdur] 30 mg PO DAILY 30 Days #30 tab Folic Acid 1 mg PO DAILY #30 tab amLODIPine [Norvasc] 5 mg PO DAILY #30 tab Cholestyramine (with Sugar) [Questran Packet] 4 gm PO TID #90 packet HYDROcodone/APAP 5-325MG [[place] 5-325] 1 tab PO BID PRN 30 Days #60 tab PRN Reason: Pain lisinopriL [Zestril] 2.5 mg PO DAILY Dicyclomine [Bentyl] 10 mg PO AC-TID Ranolazine [Ranexa] 500 mg PO Q12HR 30 Days #60 tab Nicotine 14Mg/24Hr Patch [Habitrol] 1 patch TRANSDERM DAILY #30 patch Loperamide [Imodium] 2 mg PO QID PRN #40 cap PRN Reason: Diarrhea Discharge Medication List traZODone HCL 150 mg PO HS 30 Days tablet 04/17/22 [Rx] Omeprazole 40 mg PO DAILY 10/17/22 [History] Famotidine [Pepcid] 20 mg PO HS PRN 12/23/22 [History] Sertraline [Zoloft] 150 mg PO DAILY 12/23/22 [History] Cyclobenzaprine [Flexeril] 5 mg PO TID PRN 06/14/24 [History] Dicyclomine [Bentyl] 10 mg PO AC-TID 06/14/24 [History] Aspirin 81 mg PO DAILY #30 tab 09/19/24 [Rx] Atorvastatin [Lipitor] 40 mg PO HS #30 tab 06/17/24 [Rx] Isosorbide Mononitrate ER [Imdur] 30 mg PO DAILY 30 Days #30 tab 06/17/24 [Rx] Metoprolol Tartrate [Lopressor] 50 mg PO DAILY #30 tab 06/17/24 [Rx] Ranolazine [Ranexa] 500 mg PO Q12HR 30 Days #60 tab 06/17/24 [Rx] Cholestyramine (with Sugar) [Questran Packet] 4 gm PO TID #90 packet 07/07/24 [Rx] Folic Acid 1 mg PO DAILY #30 tab 07/07/24 [Rx] Loperamide [Imodium] 2 mg PO QID PRN #40 cap 07/07/24 [Rx] Nicotine 14Mg/24Hr Patch [Habitrol] 1 patch TRANSDERM DAILY #30 patch 07/07/24 [Rx] amLODIPine [Norvasc] 5 mg PO DAILY #30 tab 07/07/24 [Rx] HYDROcodone/APAP 5-325MG [[place] 5-325] 1 tab PO BID PRN 30 Days #60 tab 07/22/24 [Rx] lisinopriL [Zestril] 2.5 mg PO DAILY 07/30/24 [History] Follow up Appointment(s)/Referral(s): Marium Mazariegos MD [Primary Care Provider] - 1-2 days
== END 2024-07-31 14:52 | disposition home or self-care (01) ==
LOC: EC 12:02 → 6NMEDSUR 15:57
PROVIDERS: ADMIT Internal Medicine; ATTEND Internal Medicine
DX: K52.9 Noninfective gastroenteritis and colitis, unspecified (principal); E86.1 Hypovolemia; E87.1 Hypo-osmolality and hyponatremia; E86.0 Dehydration; I95.9 Hypotension, unspecified; I71.43 Infrarenal abdominal aortic aneurysm, without rupture; J44.9 Chronic obstructive pulmonary disease, unspecified; N17.9 Acute kidney failure, unspecified; N18.2 Chronic kidney disease, stage 2 (mild); I12.9 Hypertensive chronic kidney disease with stage 1 through stage 4 chronic kidney disease, or unspecified chronic kidney disease; E78.5 Hyperlipidemia, unspecified; M79.7 Fibromyalgia; R74.8 Abnormal levels of other serum enzymes; I25.10 Atherosclerotic heart disease of native coronary artery without angina pectoris; F32.A Depression, unspecified; F41.9 Anxiety disorder, unspecified; F17.200 Nicotine dependence, unspecified, uncomplicated; Z79.82 Long term (current) use of aspirin; Z79.899 Other long term (current) drug therapy; Z86.79 Personal history of other diseases of the circulatory system; Z88.6 Allergy status to analgesic agent; Z88.8 Allergy status to other drugs, medicaments and biological substances; Z91.041 Radiographic dye allergy status; Z91.048 Other nonmedicinal substance allergy status; Z95.5 Presence of coronary angioplasty implant and graft; Z71.6 Tobacco abuse counseling
CPT/HCPCS: 96376 ×2; 96372 ×2; 96375 ×2; 96361; 96374; 99291; 36415; 93005; 80053 ×2; 82150 ×2; 83690 ×2; 84484; 85025 ×2; 85610; 85730; 81001; 87636; 76705; 71275; 74174; G0378 ×2; S4990 ×2; J1200; J1644 ×2; J2405; J3490; J2270; J1171 ×2; Q9967; J2919; J2470 ×2

== ENCOUNTER 2024-08-07 17:54 | Emergency (ER) | payer MEDICARE ==
--- NOTE | 2024-08-07 17:57 | ED ---
Overdose HPI - General Stated Complaint: Overdose Time Seen by Provider: 08/07/24 17:56 Source: RN notes reviewed, old records reviewed Mode of arrival: EMS Limitations: altered mental status - History of Present Illness Initial Comments: This is a 69-year-old female with altered mental status unresponsiveness secondary to accidental drug overdose tramadol and trazodone. Patient is taking her home medications taking her bedtime nighttime medications to help her sleep. And family found unresponsive MD Complaint: accidental overdose -: hour(s) Context: Intentional Overdose: other (Difficulty sleeping) Treatments Prior to Arrival: narcan - Related Data Home Medications Medication Instructions Recorded Confirmed Sertraline [Zoloft] 150 mg PO DAILY 12/23/22 08/07/24 Cyclobenzaprine [Flexeril] 5 mg PO TID PRN 06/14/24 08/07/24 Dicyclomine [Bentyl] 10 mg PO AC-TID 06/14/24 08/07/24 Atorvastatin [Lipitor] 20 mg PO HS 08/07/24 08/07/24 Pantoprazole [Protonix] See Taper PO DIRECTED 08/07/24 08/07/24 Potassium Chloride ER [K-Dur 20] 20 meq PO DAILY 08/07/24 08/07/24 Previous Rx's Medication Instructions Recorded traZODone HCL 150 mg PO HS 30 Days tablet 04/17/22 Aspirin 81 mg PO DAILY #30 tab 06/17/24 Isosorbide Mononitrate ER [Imdur] 30 mg PO DAILY 30 Days #30 tab 06/17/24 Metoprolol Tartrate [Lopressor] 50 mg PO DAILY #30 tab 06/17/24 Ranolazine [Ranexa] 500 mg PO Q12HR 30 Days #60 tab 06/17/24 Cholestyramine (with Sugar) 4 gm PO TID #90 packet 07/07/24 [Questran Packet] Folic Acid 1 mg PO DAILY #30 tab 07/07/24 Loperamide [Imodium] 2 mg PO QID PRN #40 cap 07/07/24 Nicotine 14Mg/24Hr Patch [Habitrol] 1 patch TRANSDERM DAILY #30 patch 07/07/24 amLODIPine [Norvasc] 5 mg PO DAILY #30 tab 07/07/24 HYDROcodone/APAP 5-325MG [[place] 1 tab PO BID PRN 30 Days #60 tab 07/22/24 5-325] Ondansetron Odt [Zofran Odt] 4 mg PO Q8HR PRN #12 tab 08/01/24 Allergies Allergy/AdvReac Type Severity Reaction Status Date / Time hydralazine AdvReac TONGUE Verified 08/07/24 18:45 NUMBNESS ibuprofen AdvReac NIGHTMARES Verified 08/07/24 18:38 Iodinated Contrast Media AdvReac Nausea & Verified 08/07/24 18:38 [Iodinated Contrast Media - Vomiting IV Dye] povidone-iodine AdvReac Nausea & Verified 08/07/24 18:38 [From Betadine] Vomiting soap [From Betadine] AdvReac Nausea & Verified 08/07/24 18:38 Vomiting Review of Systems ROS Statement: Those systems with pertinent positive or pertinent negative responses have been documented in the HPI. ROS Other: All systems not noted in ROS Statement are negative. Past Medical History Past Medical History: Coronary Artery Disease (CAD), Chest Pain / Angina, COPD, Fibromyalgia, Hyperlipidemia, Hypertension, Osteoarthritis (OA) Additional Past Medical History / Comment(s): Chronic back pain, DDD, bulging discs, scoliosis, osteoporosis., PAST HX JAW FX RT-CAUSES HEADACHES-TAKES TEGRETOL, abdominal aneurysm. colitis Last Myocardial Infarction Date:: 06/29/2020 History of Any Multi-Drug Resistant Organisms: None Reported Past Surgical History: Breast Surgery, Heart Catheterization With Stent, Hysterectomy, Orthopedic Surgery Additional Past Surgical History / Comment(s): Back injections, L patellar surgery, R carpal tunnel release, L breast benign biopsy, sinus surgery, EGD Past Anesthesia/Blood Transfusion Reactions: No Reported Reaction Date of Last Stent Placement:: 05/10/20 Past Psychological History: Anxiety, Depression Additional Psychological History / Comment(s): Pt resides with her daughter. She uses no assistive device. She does not drive, her daughters or public transportation take her to appointments. She manages her own medication. Smoking Status: Current every day smoker Past Alcohol Use History: None Reported Additional Past Alcohol Use History / Comment(s): Pt started smoking in 1967 and is a 1ppd smoker. Past Drug Use History: None Reported Additional Drug Use History / Comment(s): no additional drug use stated by patient at this time - Past Family History Mother Family Medical History: Cancer Additional Family Medical History / Comment(s): Mother had lupus and TB Father History Unknown: Yes General Exam General appearance: alert, in no apparent distress Head exam: Present: atraumatic, normocephalic, normal inspection Eye exam: Present: normal appearance, PERRL, EOMI. Absent: scleral icterus, conjunctival injection, periorbital swelling ENT exam: Present: normal exam, mucous membranes moist Neck exam: Present: normal inspection. Absent: tenderness, meningismus, lymphadenopathy Respiratory exam: Present: normal lung sounds bilaterally. Absent: respiratory distress, wheezes, rales, rhonchi, stridor Cardiovascular Exam: Present: regular rate, normal rhythm, normal heart sounds. Absent: systolic murmur, diastolic murmur, rubs, gallop, clicks GI/Abdominal exam: Present: soft, normal bowel sounds. Absent: distended, tenderness, guarding, rebound, rigid Extremities exam: Present: normal inspection, full ROM, normal capillary refill. Absent: tenderness, pedal edema, joint swelling, calf tenderness Back exam: Present: normal inspection Neurological exam: Present: alert, oriented X3, CN II-XII intact Psychiatric exam: Present: normal affect, normal mood Skin exam: Present: warm, dry, intact, normal color. Absent: rash Course Vital Signs 08/07/24 18:22 Temperature 97.6 F Pulse Rate 73 Respiratory 18 Rate Blood Pressure 117/77 O2 Sat by Pulse 97 Oximetry - Reevaluation(s) Reevaluation #1: 08/07/24 18:11 Medical records reviewed Reevaluation #2: 08/07/24 18:11 Patient symptoms are improved remains awake and alert Reevaluation #3: 08/07/24 18:11 Patient informed of results and questions answered Reevaluation #4: Was pt. sent in by a medical professional or institution (, PA, BENCH PRECISION ASSEMBLER, urgent care, hospital, or jail...) When possible be specific @ -no Did you speak to anyone other than the patient for history (EMS, parent, family, police, friend...)? What history was obtained from this source @ -no Did you review nursing and triage notes (agree or disagree)? Why? @ -agree Are old charts reviewed (outside hosp., previous admission, EMS record, old EKG, old radiological studies, urgent care reports/EKG's, jail records)? Report findings @ -yes Differential Diagnosis (chest pain, altered mental status, abdominal pain women, abdominal pain men, vaginal bleeding, weakness, fever, dyspnea, syncope, headache, dizziness, GI bleed, back pain, seizure, CVA, palpatations, mental health, musculoskeletal)? @ -prior EKG interpreted by me (3pts min.). @ -yes X-rays interpreted by me (1pt min.). @ -yes negative for acute disease CT interpreted by me (1pt min.). @ -no U/S interpreted by me (1pt. min.). @ -no What testing was considered but not performed or refused? (CT, X-rays, U/S, labs)? Why? @ -none What meds were considered but not given or refused? Why? @ -none Did you discuss the management of the patient with other professionals (professionals i.e. , PA, BENCH PRECISION ASSEMBLER, lab, RT, psych nurse, social work msw, clasp machine operator, teacher, enforcement officer, keycase assembler)? Give summary @ -no Was smoking cessation discussed for >3mins.? @ -no Was critical care preformed (if so, how long)? @ -no Were there social determinants of health that impacted care today? How? (Homelessness, low income, unemployed, alcoholism, drug addiction, transportation, low edu. Level, literacy, decrease access to med. care, retirement, rehab)? @ -none Was there de-escalation of care discussed even if they declined (Discuss DNR or withdrawal of care, Hospice)? DNR status @ -no What co-morbidities impacted this encounter? (DM, HTN, Smoking, COPD, CAD, Cancer, CVA, ARF, Chemo, Hep., AIDS, mental health diagnosis, sleep apnea, morbid obesity)? @ -none Was patient admitted / discharged? Hospital course, mention meds given and route, prescriptions, significant lab abnormalities, going to OR and other pertinent info. @ - Undiagnosed new problem with uncertain prognosis? @ -no Drug Therapy requiring intensive monitoring for toxicity (Heparin, Nitro, Insulin, Cardizem)? @ -no Were any procedures done? @ -no Diagnosis/symptom? @ - Acute, or Chronic, or Acute on Chronic? @ -Acute Uncomplicated (without systemic symptoms) or Complicated (systemic symptoms)? @ -Complicated Side effects of treatment? @ -no Exacerbation, Progression, or Severe Exacerbation? @ -exacerbation Poses a threat to life or bodily function? How? (Chest pain, [place], SD, pneumonia, PE, COPD, DKA, ARF, appy, cholecystitis, CVA, Diverticulitis, Homicidal, Suicidal, threat to staff... and all critical care pts) @ -yes Reevaluation #5: Differential Altered Mental Status: Hypoglycemia, DKA, hypercapnia, ETOH, overdose, CO poisoning, trauma, myxedema coma, HTN encephalopathy, infection, encephalitis, psychosis, intercranial hemorrhage, hepatic encephalopathy, meningitis, CVA, this is not meant to be an all-inclusive list Medical Decision Making - Medical Decision Making 69 female to the ER for evaluation of accidental overdose, patient did take home meds at normal levels and was initially found unresponsive, patient was initially given Narcan though never hypoxic did not stop breathing just decreased level of responsiveness, patient remains awake and alert to ER and can be discharged home - EKG Data -: EKG Interpreted by Me (EKG is sinus 66 WV 143 QRS 108 QTc 373) Disposition Clinical Impression: Accidental drug overdose Disposition: HOME SELF-CARE Condition: Fair Instructions (If sedation given, give patient instructions): Adult Overdose (ED) Is patient prescribed a controlled substance at d/c from ED?: No Referrals: Marium Mazariegos MD [Primary Care Provider] - 1-2 days Time of Disposition: 19:00
[2024-08-07 18:28] VITALS: TEMP 97.6
[2024-08-07 19:19] LABS: Basophils # (A) 0.1 k/uL (0-0.2); Basophils % (A) 0 %; Eosinophils # (A) 0.2 k/uL (0-0.7); Eosinophils % (A) 2 %; HCT 35.3 % (34.0-46.0); HGB 11.4 gm/dL (11.4-16.0); Lymphocytes # (A) 2.7 k/uL (1.0-4.8); Lymphocytes % (A) 22 %; MCH 31.6 pg (25.0-35.0); MCHC 32.2 g/dL (31.0-37.0); Mean Platelet Volume 7.9; Monocytes # (A) 0.5 k/uL (0-1.0); Monocytes % (A) 5 %; Neutrophils # (A) 8.2 k/uL (1.3-7.7); Neutrophils % (A) 69 %; Platelet Count 251 k/uL (150-450); RDW 14.6 % (11.5-15.5); WBC 11.9 k/uL (3.8-10.6)
[2024-08-07 19:31] LABS: ALT 9 U/L (4-34); AST 20 U/L (14-36); African American GFR (CKD) 36 (>60 ml/min/1.73 sqM); Albumin 3.1 g/dL (3.5-5.0); Alkaline Phosphatase 59 U/L (38-126); Anion Gap 5 mmol/L; Blood Urea Nitrogen 17 mg/dL (7-17); Carbon Dioxide 24 mmol/L (22-30); Chloride 97 mmol/L (98-107); Glucose 105 mg/dL (74-99); Magnesium 1.6 mg/dL (1.6-2.3); Non-African American GFR(CKD) 31 (>60 ml/min/1.73 sqM); Phosphorus 4.3 mg/dL (2.5-4.5); Potassium 2.9 mmol/L (3.5-5.1); Sodium 126 mmol/L (137-145); Total Bilirubin 0.3 mg/dL (0.2-1.3); Total Protein 5.5 g/dL (6.3-8.2)
[2024-08-07 19:40] LABS: NT-Pro-B-Type Natriuretic Pept 324 pg/mL
[2024-08-07] MEDS: SODIUM CHLORIDE 0.9% 1,000 ML IV STA (19:44)
[2024-08-07 20:52] VITALS: BP 107/56; PULSE 74; RESP 18
== END 2024-08-07 21:01 | disposition home or self-care (01) ==
LOC: EC 17:54
DX: T40.421A Poisoning by tramadol, accidental (unintentional), initial encounter (principal); T43.211A Poisoning by selective serotonin and norepinephrine reuptake inhibitors, accidental (unintentional), initial encounter; F17.210 Nicotine dependence, cigarettes, uncomplicated; Z88.6 Allergy status to analgesic agent; Z88.8 Allergy status to other drugs, medicaments and biological substances; Z91.041 Radiographic dye allergy status; Z91.09 Other allergy status, other than to drugs and biological substances
CPT/HCPCS: 36415; 80053; 83735; 83880; 84100; 84484; 85025; 93005; 96360; 99285

== ENCOUNTER 2024-10-06 14:18 | Observation (INO) | payer MEDICARE ==
--- NOTE | 2024-10-06 14:40 | ED ---
Abdominal Pain HPI - General Chief Complaint: Abdominal Pain Stated Complaint: infection Time Seen by Provider: 10/06/24 14:31 Source: patient, family, EMS, RN notes reviewed Mode of arrival: EMS Limitations: no limitations - History of Present Illness Initial Comments: This is a 69-year-old female who presents to the emergency department for abdominal pain. Patient was discharged from [facility] earlier this week after being admitted for 3 days. The admission was for abdominal pain and nausea/vomiting. States that when she was discharged she was still symptomatic. Since then she has continued to have severe pain throughout her a bdomen with nausea and vomiting. States that today she also started to develop chest pain. She does have a hx of CAD requiring stent placement. Patient's blood pressure is elevated on arrival which she states is giving her a headache. She does have a history of hypertension and is taking all of her medication as prescribed. MD Complaint: abdominal pain - Related Data Home Medications Medication Instructions Recorded Confirmed Sertraline [Zoloft] 150 mg PO DAILY 12/23/22 10/06/24 Dicyclomine [Bentyl] 10 mg PO AC-TID 06/14/24 10/06/24 Pantoprazole [Protonix] 40 mg PO DAILY 08/07/24 10/06/24 Aspirin/Acetaminophen/Caffeine 3 tab PO BID 10/06/24 10/06/24 [Excedrin Extra Strength Caplet] Atorvastatin [Lipitor] 40 mg PO HS 10/06/24 10/06/24 Famotidine [Pepcid] 20 mg PO HS PRN 10/06/24 10/06/24 hydrALAZINE HCL [Apresoline] 10 mg PO BID PRN 10/06/24 10/06/24 lisinopriL [Zestril] 5 mg PO DAILY 10/06/24 10/06/24 Previous Rx's Medication Instructions Recorded traZODone HCL 150 mg PO HS 30 Days tablet 04/17/22 HYDROcodone/APAP 5-325MG [Spicer 1 tab PO BID PRN 30 Days #60 tab 07/22/24 5-325] Ondansetron Odt [Zofran Odt] 4 mg PO Q8HR PRN #12 tab 08/01/24 Allergies Allergy/AdvReac Type Severity Reaction Status Date / Time hydralazine AdvReac TONGUE Verified 10/06/24 16:44 NUMBNESS ibuprofen AdvReac NIGHTMARES Verified 10/06/24 16:44 Iodinated Contrast Media AdvReac Nausea & Verified 10/06/24 16:44 [Iodinated Contrast Media - Vomiting IV Dye] povidone-iodine AdvReac Nausea & Verified 10/06/24 16:44 [From Betadine] Vomiting soap [From Betadine] AdvReac Nausea & Verified 10/06/24 16:44 Vomiting Review of Systems ROS Statement: Those systems with pertinent positive or pertinent negative responses have been documented in the HPI. ROS Other: All systems not noted in ROS Statement are negative. Past Medical History Past Medical History: Coronary Artery Disease (CAD), Chest Pain / Angina, COPD, Fibromyalgia, Hyperlipidemia, Hypertension, Osteoarthritis (OA) Additional Past Medical History / Comment(s): Chronic back pain, DDD, bulging discs, scoliosis, osteoporosis., PAST HX JAW FX RT-CAUSES HEADACHES-TAKES TEGRETOL, abdominal aneurysm. colitis Last Myocardial Infarction Date:: 06/29/2020 History of Any Multi-Drug Resistant Organisms: None Reported Past Surgical History: Breast Surgery, Heart Catheterization With Stent, Hysterectomy, Orthopedic Surgery Additional Past Surgical History / Comment(s): Back injections, L patellar surgery, R carpal tunnel release, L breast benign biopsy, sinus surgery, EGD Past Anesthesia/Blood Transfusion Reactions: No Reported Reaction Date of Last Stent Placement:: 05/10/20 Past Psychological History: Anxiety, Depression Smoking Status: Current every day smoker Past Alcohol Use History: None Reported Past Drug Use History: None Reported - Past Family History Mother Family Medical History: Cancer Additional Family Medical History / Comment(s): Mother had lupus and TB Father History Unknown: Yes General Exam Limitations: no limitations General appearance: alert, in distress Head exam: Present: atraumatic, normocephalic, normal inspection Eye exam: Present: normal appearance, PERRL, EOMI. Absent: scleral icterus, conjunctival injection, periorbital swelling Respiratory exam: Present: normal lung sounds bilaterally. Absent: respiratory distress, wheezes, rales, rhonchi, stridor Cardiovascular Exam: Present: normal rhythm, tachycardia GI/Abdominal exam: Present: soft, tenderness (diffuse), normal bowel sounds. Absent: distended Neurological exam: Present: alert, oriented X3, CN II-XII intact Psychiatric exam: Present: normal affect, normal mood Skin exam: Present: warm, dry, intact, normal color. Absent: rash Course Vital Signs 10/06/24 10/06/24 10/06/24 14:22 15:37 17:21 Temperature 98.3 F Pulse Rate 108 H 107 H 83 Respiratory 18 Rate Blood Pressure 164/146 211/142 196/125 O2 Sat by Pulse 100 Oximetry 10/06/24 10/06/24 10/06/24 18:01 21:12 23:53 Temperature 98.3 F Pulse Rate 75 97 85 Respiratory 18 16 16 Rate Blood Pressure 174/111 163/110 170/105 O2 Sat by Pulse 95 95 Oximetry 10/07/24 10/07/24 02:01 04:29 Temperature Pulse Rate 75 66 Respiratory 15 13 Rate Blood Pressure 114/74 104/61 O2 Sat by Pulse 95 93 L Oximetry Medical Decision Making - Medical Decision Making This is a 69 year old female who presents to the emergency department for abdominal pain. \Was pt. sent in by a medical professional or institution? @ -No Did you speak to anyone other than the patient for history? @ -No Did you review nursing and triage notes? @ -Yes, and I agree, it is accurate with regards to the patient's symptoms. Were old charts reviewed? @ -No Differential Diagnosis? @ -Differential Abdominal Pain Women: Appendicitis, Cholecystitis, diverticulosis, ischemic bowel, pancreatitis, hepatitis, UTI, gastroenteritis, AAA, incarcerated hernia, bowel obstruction, constipation, inflammatory bowel, hepatitis, peptic ulcer disease, splenic infarction, perforated viscus, vulvitis, ovarian torsion, PID, kidney stone, placenta abruption, this is not meant to be an all-inclusive list EKG interpreted by me (3pts min.)? @ -EKG interpreted by me demonstrating the following: Sinus tachycardia. Ventricular rate 106 bpm, FL interval 124 ms, QRS duration 88 ms, QTc 408 ms. X-rays interpreted by me (1pt min.)? @ -Pending CT interpreted by me (1pt min.)? @ -CT scan of the abdomen and pelvis obtained. My interpretation identifies no evidence of bowel wall thickening or free air. U/S interpreted by me (1pt. min.)? @ -Not obtained What testing was considered but not performed? (CT, X-rays, U/S, labs)? Why? @ -None What meds were considered but not given? Why? @ -None Did you discuss the management of the patient with other professionals? @ -Yes, Hailee Dale with [facility], who accepts the patient for admission. Did you reconcile home meds? @ -Yes Was smoking cessation discussed for >3mins.? @ -No Was critical care preformed (if so, how long)? @ -No Were there social determinants of health that impacted care today? How? (Homelessness, low income, unemployed, alcoholism, drug addiction, transportation, low edu. Level, literacy, decrease access to med. care, intermediate, rehab)? @ -No Was there de-escalation of care discussed even if they declined? (Discuss DNR or withdrawal of care, Hospice)? @ -No What co-morbidities impacted this encounter? (DM, HTN, Smoking, COPD, CAD, Cancer, CVA, Hep., AIDS, mental health diagnosis, sleep apnea, morbid obesity)? @ -CAD, COPD Was patient admitted / discharged? @ -Admitted. Lab work unremarkable. Urinalysis negative for signs of in fection. Patient states that today she started to experience chest pain. She also started to develop a headache when she got to the emergency department. She was found to be fairly hypertensive with a BP in the 200s systolically. Reports being compliant with her medication. She was given a dose of labetalol with some improvement in blood pressure, however she was still in the 180s systolically. She was subsequently given another [address] scan of the abdomen and pelvis obtained revealing no acute process. Given patient's comorbidities with cardiac history, she was admitted to medicine for chest pain and hypertensive urgency. Consult placed for cardiology and serial troponins were ordered. The cause of her abdominal pain is not currently clear. GI consulted regarding her abdominal pain. Case discussed with ED attending Dr. Reyes. Undiagnosed new problem with uncertain prognosis? @ -None Drug Therapy requiring intensive monitoring for toxicity (Heparin, Nitro, Insulin, Cardizem)? @ -None Were any procedures done? @ -None Diagnosis/symptom? @ -Chest pain, hypertensive urgency, abdominal pain Acute, or Chronic, or Acute on Chronic? @ -Acute Uncomplicated (without systemic symptoms) or Complicated (systemic symptoms)? @ -Complicated Side effects of treatment? @ -None Exacerbation, Progression, or Severe Exacerbation] @ -Not applicable Poses a threat to life or bodily function? @ -Yes, if due to ACS can be life-threatening - Lab Data Result diagrams: 10/06/24 14:43 10/06/24 14:43 Lab Results 10/06/24 10/06/24 10/06/24 Range/Units 14:43 14:43 14:43 WBC 8.2 (3.8-10.6) k/uL RBC 4.03 (3.80-5.40) m/uL Hgb 12.5 (11.4-16.0) gm/dL Hct 38.6 (34.0-46.0) % MCV 95.9 (80.0-100.0) fL MCH 31.1 (25.0-35.0) pg MCHC 32.5 (31.0-37.0) g/dL RDW 13.9 (11.5-15.5) % Plt Count 291 (150-450) k/uL MPV 7.3 Neutrophils % 53 % Lymphocytes % 36 % Monocytes % 6 % Eosinophils % 2 % Basophils % 1 % Neutrophils # 4.3 (1.3-7.7) k/uL Lymphocytes # 2.9 (1.0-4.8) k/uL Monocytes # 0.5 (0-1.0) k/uL Eosinophils # 0.2 (0-0.7) k/uL Basophils # 0.0 (0-0.2) k/uL PT 11.5 (10.0-12.5) sec INR 1.0 (<1.2) APTT 23.6 (22.0-30.0) sec Sodium 137 (137-145) mmol/L Potassium 3.4 L (3.5-5.1) mmol/L Chloride 103 (98-107) mmol/L Carbon Dioxide 26 (22-30) mmol/L Anion Gap 8 mmol/L BUN 9 (7-17) mg/dL Creatinine 0.82 (0.52-1.04) mg/dL Est GFR (CKD-EPI)AfAm 85 (>60 ml/min/1.73 sqM) Est GFR (CKD-EPI)NonAf 73 (>60 ml/min/1.73 sqM) Glucose 121 H (74-99) mg/dL Plasma Lactic Acid Chauncey (0.7-2.0) mmol/L Calcium 9.1 (8.4-10.2) mg/dL Magnesium 1.8 (1.6-2.3) mg/dL Total Bilirubin 0.3 (0.2-1.3) mg/dL AST 27 (14-36) U/L ALT 10 (4-34) U/L Alkaline Phosphatase 68 (38-126) U/L Troponin I (0.000-0.034) ng/mL Total Protein 6.8 (6.3-8.2) g/dL Albumin 4.1 (3.5-5.0) g/dL Amylase 77 (30-110) U/L Lipase 223 (23-300) U/L Urine Color Urine Appearance (Clear) Urine pH (5.0-8.0) Ur Specific [place] (1.001-1.035) Urine Protein (Negative) Urine Glucose (UA) (Negative) Urine Ketones (Negative) Urine Blood (Negative) Urine Nitrite (Negative) Urine Bilirubin (Negative) Urine Urobilinogen (<2.0) mg/dL Ur Leukocyte Esterase (Negative) Urine RBC (0-5) /hpf Urine WBC (0-5) /hpf Ur Squamous Epith Cells (0-4) /hpf Urine Bacteria (None) /hpf 10/06/24 10/06/24 10/06/24 Range/Units 14:43 14:43 14:52 WBC (3.8-10.6) k/uL RBC (3.80-5.40) m/uL Hgb (11.4-16.0) gm/dL Hct (34.0-46.0) % MCV (80.0-100.0) fL MCH (25.0-35.0) pg MCHC (31.0-37.0) g/dL RDW (11.5-15.5) % Plt Count (150-450) k/uL MPV Neutrophils % % Lymphocytes % % Monocytes % % Eosinophils % % Basophils % % Neutrophils # (1.3-7.7) k/uL Lymphocytes # (1.0-4.8) k/uL Monocytes # (0-1.0) k/uL Eosinophils # (0-0.7) k/uL Basophils # (0-0.2) k/uL PT (10.0-12.5) sec INR (<1.2) APTT (22.0-30.0) sec Sodium (137-145) mmol/L Potassium (3.5-5.1) mmol/L Chloride (98-107) mmol/L Carbon Dioxide (22-30) mmol/L Anion Gap mmol/L BUN (7-17) mg/dL Creatinine (0.52-1.04) mg/dL Est GFR (CKD-EPI)AfAm (>60 ml/min/1.73 sqM) Est GFR (CKD-EPI)NonAf (>60 ml/min/1.73 sqM) Glucose (74-99) mg/dL Plasma Lactic Acid Chauncey 0.8 (0.7-2.0) mmol/L Calcium (8.4-10.2) mg/dL Magnesium (1.6-2.3) mg/dL Total Bilirubin (0.2-1.3) mg/dL AST (14-36) U/L ALT (4-34) U/L Alkaline Phosphatase (38-126) U/L Troponin I 0.017 (0.000-0.034) ng/mL Total Protein (6.3-8.2) g/dL Albumin (3.5-5.0) g/dL Amylase (30-110) U/L Lipase (23-300) U/L Urine Color Colorless Urine Appearance Cloudy H (Clear) Urine pH 7.0 (5.0-8.0) Ur Specific [place] 1.010 (1.001-1.035) Urine Protein Trace H (Negative) Urine Glucose (UA) Negative (Negative) Urine Ketones Negative (Negative) Urine Blood Negative (Negative) Urine Nitrite Negative (Negative) Urine Bilirubin Negative (Negative) Urine Urobilinogen <2.0 (<2.0) mg/dL Ur Leukocyte Esterase Negative (Negative) Urine RBC <1 (0-5) /hpf Urine WBC <1 (0-5) /hpf Ur Squamous Epith Cells 2 (0-4) /hpf Urine Bacteria Rare H (None) /hpf - Radiology Data Radiology results: report reviewed, image reviewed Disposition Clinical Impression: Chest pain, Abdominal pain, Hypertensive urgency Disposition: ADMITTED IP TO THIS HOSP
[2024-10-06] MEDS: SODIUM CHLORIDE 0.9% 1,000 ML IV STA (14:49)
[2024-10-06 14:50] LABS: Basophils % (A) 1 %; Eosinophils # (A) 0.2 k/uL (0-0.7); Eosinophils % (A) 2 %; HCT 38.6 % (34.0-46.0); HGB 12.5 gm/dL (11.4-16.0); Lymphocytes # (A) 2.9 k/uL (1.0-4.8); Lymphocytes % (A) 36 %; MCH 31.1 pg (25.0-35.0); MCHC 32.5 g/dL (31.0-37.0); MCV 95.9 fL (80.0-100.0); Mean Platelet Volume 7.3; Monocytes # (A) 0.5 k/uL (0-1.0); Monocytes % (A) 6 %; Neutrophils # (A) 4.3 k/uL (1.3-7.7); Neutrophils % (A) 53 %; Platelet Count 291 k/uL (150-450); RBC 4.03 m/uL (3.80-5.40); RDW 13.9 % (11.5-15.5); WBC 8.2 k/uL (3.8-10.6)
[2024-10-06] MEDS: ONDANSETRON 4 MG/2 ML VIAL IVP STA (14:51)
[2024-10-06] MEDS: HYDROmorphone 1 MG/ML 1 ML SYRINGE IVP STA (14:53)
[2024-10-06 14:59] LABS: Partial Thromboplastin Time 23.6 sec (22.0-30.0); Prothrombin Time 11.5 sec (10.0-12.5)
[2024-10-06 15:06] LABS: ALT 10 U/L (4-34); African American GFR (CKD) 85 (>60 ml/min/1.73 sqM); Albumin 4.1 g/dL (3.5-5.0); Amylase 77 U/L (30-110); Anion Gap 8 mmol/L; Blood Urea Nitrogen 9 mg/dL (7-17); Calcium 9.1 mg/dL (8.4-10.2); Carbon Dioxide 26 mmol/L (22-30); Chloride 103 mmol/L (98-107); Glucose 121 mg/dL (74-99); Lipase 223 U/L (23-300); Non-African American GFR(CKD) 73 (>60 ml/min/1.73 sqM); Sodium 137 mmol/L (137-145); Total Bilirubin 0.3 mg/dL (0.2-1.3); Total Protein 6.8 g/dL (6.3-8.2)
[2024-10-06 15:10] LABS: AST 27 U/L (14-36); Potassium 3.4 mmol/L (3.5-5.1)
[2024-10-06 15:11] LABS: Alkaline Phosphatase 68 U/L (38-126)
[2024-10-06 15:12] LABS: Magnesium 1.8 mg/dL (1.6-2.3)
[2024-10-06] MEDS: methylPREDNISolone SOD SUCCI 125 MG/2 ML VIAL IV STA (15:30)
[2024-10-06] MEDS: diphenhydrAMINE 50 MG/ML 1 ML VIAL IVP STA (15:33)
[2024-10-06] MEDS: FAMOTIDINE 20 MG/2 ML VIAL IV STA (15:33)
[2024-10-06] MEDS: LABETALOL 5 MG/ML VIAL MDV IVP STA ×2 (15:43→17:33)
--- NOTE | 2024-10-06 16:20 | CT ---
EXAMINATION TYPE: CT abdomen pelvis w con DATE OF EXAM: 10/06/2024 COMPARISON: 06/28/2024 CLINICAL INDICATION: Female, 69 years old with history of Abdominal pain, acute, nonlocalized; PHH, C olitis flare up. Upper abdominal pain. TECHNIQUE: Performed without Oral Contrast and with IV Contrast, patient injected with 80 ml mL of Isovue 300. CT DLP: 352.[address] CTDI: mGy Automated exposure control for dose reduction was used. FINDINGS: The lung bases are clear. The gallbladder is normal without distention, wall thickening, pericholecystic fluid or gallstones. T here is no biliary ductal dilatation. There is no focal mass or organomegaly involving the liver, pancreas, spleen or adrenal glands. There is no solid renal mass or hydronephrosis and there is homogeneous contrast enhancement of the r enal parenchyma. There is marked right renal atrophy. There is a stable 3.6 x 3.4 cm infrarenal abdominal aortic aneurysm with moderate mural thrombus. Sta ble 3.2 cm suprarenal abdominal aortic aneurysm. The bowel loops are normal in caliber and there is no evidence of dilatation or obstruction. No infla mmatory changes are identified in the bowel wall or mesentery. Inflammatory changes within the distal large bowel on the prior studies study has resolved in the interval. There is no free intraperitoneal air or fluid. No pelvic mass, free fluid, abscess or adenopathy. The osseous structures and soft tissues are intact. Surgical absence of uterus. IMPRESSION: 1. No bowel obstruction or inflammation.. No free intraperitoneal air or fluid. 2. Stable abdominal aortic aneurysms as described above. 3. Stable moderate right renal atrophy. [facility], , 10/06/2024 4:17 PM
[2024-10-06] MEDS ORDERED: NALOXONE 0.4 MG/ML 1 ML VIAL IV PRN (16:37)
[2024-10-06] MEDS ORDERED: ONDANSETRON 4 MG/2 ML VIAL IVP PRN (16:37)
[2024-10-06] MEDS ORDERED: ACETAMINOPHEN TAB 325 MG TAB PO PRN (16:37)
[2024-10-06 16:42] LABS: Appearance,Urine Cloudy (Clear); Bacteria,Urine Rare /hpf; Bilirubin,Urine Negative (Negative); Blood,Urine Negative (Negative); Color,Urine Colorless; Glucose,Urine (UA) Negative (Negative); Ketones,Urine Negative (Negative); Leukocyte Esterase,Urine Negative (Negative); Nitrite,Urine Negative (Negative); Protein,Urine Trace (Negative); RBC,Urine <1 /hpf (0-5); Squamous Epithelial Cell,Urine 2 /hpf (0-4); Urobilinogen,Urine <2.0 mg/dL (<2.0); WBC,Urine <1 /hpf (0-5)
--- NOTE | 2024-10-06 16:58 | XR ---
EXAMINATION TYPE: XR chest 2V DATE OF EXAM: 10/06/2024 4:53 PM COMPARISON: Chest x-ray July 05, 2024 CLINICAL INDICATION: Female, 69 years old with history of Chest pain, TECHNIQUE: Frontal and lateral views of the chest are obtained. FINDINGS: There is no suspicious new focal air space opacity, pleural effusion, or pneumothorax seen . The cardiac silhouette size remains within normal limits. The osseous structures are intact. IMPRESSION: No acute process. [facility], , 10/06/2024 4:56 PM
[2024-10-06] MEDS: POTASSIUM CHLORIDE ER 20 MEQ TAB.ER PO STA (17:22)
[2024-10-06] MEDS: HYDROcodone/APAP 5-325MG 1 EACH TAB PO PRN (20:07)
[2024-10-06] MEDS: HYDROmorphone 1 MG/ML 1 ML SYRINGE IVP PRN (23:57)
[2024-10-07] MEDS: MELATONIN 5 MG TABLET PO SCH (00:41)
[2024-10-07] MEDS: traZODone HCL 50 MG TAB PO SCH (00:41)
[2024-10-07] MEDS: lisinopriL 5 MG TAB PO SCH (00:48)
[2024-10-07] MEDS ORDERED: hydrALAZINE HCL 10 MG TAB PO PRN (06:09)
[2024-10-07] MEDS ORDERED: ONDANSETRON ODT 4 MG TAB PO PRN (06:09)
[2024-10-07] MEDS ORDERED: FAMOTIDINE 20 MG TAB PO PRN (06:09)
[2024-10-07] MEDS ORDERED: HYDROcodone/APAP 5-325MG 1 EACH TAB PO PRN (06:09)
[2024-10-07] MEDS: PANTOPRAZOLE 40 MG TABLET PO SCH ×2 (08:15→17:31)
[2024-10-07] MEDS: DICYCLOMINE 10 MG CAP PO SCH (08:16)
[2024-10-07] MEDS: ASPIRIN-ACET-CAFF 250-250-65MG 1 EACH TAB PO SCH (08:16)
[2024-10-07] MEDS: SERTRALINE 50 MG TAB PO SCH (08:17)
[2024-10-07] MEDS ORDERED: PANTOPRAZOLE 40 MG/10 ML VIAL IV SCH (09:00)
[2024-10-07] MEDS ORDERED: lisinopriL 5 MG TAB PO SCH (09:00)
[2024-10-07 09:26] VITALS: BMI 15.0
--- NOTE | 2024-10-07 10:29 | P.CRDCN ---
History of Present Illness Consult date: 10/07/24 Reason for Consult (text): Chest pain, hypertension History of present illness: This is a 69-year-old female patient previously seen by Dr. Alex in the office in 2022 with past medical history of coronary artery disease with known chronic total occlusion of the RCA with intermediate disease involving the LAD, hypertension, dyslipidemia, carotid atherosclerosis, infrarenal aortic aneurysm, lower extremity PAD, tobacco use. We have been asked to evaluate the patient for chest pain and hypertension. Patient gives history that she was recently hospitalized at [facility] for abdominal pain and had colitis and low blood pressure. She states she was having significant problems with dry heaving. Patient presents now to the emergency center due to epigastric pain and tenderness. Tenderness goes around to the lower rib cage on the left side. Blood pressure 127/76, heart rate 67, pulse ox 94% on room air. Patient was f ound to have significantly high blood pressure on admission and is status post labetalol 20 mg x 2 IV. Blood pressure was 164/146. -EKG: Sinus rhythm with no acute ST changes -Chest x-ray: No acute process -Laboratory studies: CBC normal. INR normal. Potassium 3.4, blood sugar 121 otherwise CMP normal. Troponin negative x 3. Magnesium 1.8. -Home cardiac medications: Atorvastatin 40 mg at bedtime, hydralazine 10 mg twice daily as needed, lisinopril 5 mg daily. -Echocardiogram performed 02/04/2024 reveals EF of 45 to 50%, technically difficult study. 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 FFR was nonischemic. Previous PCI of the left circumflex 04/2020. Review Of Systems: At the time of my exam: CONSTITUTIONAL: Denies fever or chills. HEENT: Denies blurred vision, vision changes, or eye pain. Denies hemoptysis CARDIOVASCULAR: Denies chest pain. Denies orthopnea. Denies PND. Denies palpitations RESPIRATORY: Denies shortness of breath. GASTROINTESTINAL: Reports epigastric abdominal pain. Denies nausea or vomiting. HEMATOLOGIC: Denies bleeding disorders. GENITOURINARY: Denies any blood in urine. SKIN: Denies puritis. Denies rash. Physical examination: Gen: This is a 69-year-old female in no acute distress VS: reviewed HEENT: Head is atraumatic, normocephalic. Pupils equal, round. Sclerae is anicteric. NECK: Supple. No JVD. LUNGS: Clear to auscultation. No wheezes or rhonchi. No intercostal retractions. HEART: Regular rate and rhythm. No murmur. ABDOMEN: Soft epigastric tenderness. EXTREMITIES: No pedal edema. No calf tenderness. NEUROLOGICAL: Patient is awake, alert and oriented x3. Assessment: Uncontrolled hypertension Epigastric pain Atypical chest pain, acute coronary syndrome ruled out Patient reported recent admission at [facility] for colitis History of coronary artery disease with known chronic total occlusion of the RCA and intermediate disease of the LAD, previous PCI of the circumflex Hypertension Dyslipidemia Carotid atherosclerosis Infrarenal aortic aneurysm Lower extremity PAD Tobacco use and dependence Plan: Resume patient's home cardiac medications with the following changes: Discontinue as needed hydralazine Discontinue lisinopril Start patient on metoprolol succinate 25 mg daily Monitor blood pressure closely No further cardiac workup at this time Smoking cessation. Patient will be provided the [employer] quit line information at discharge. Further recommendations to follow based upon clinical course At the time of discharge, patient is requesting to follow-up with Dr. Blanco in the office. Thank you kindly for this consultation. Nurse practitioner note has been reviewed, I agree with documented findings and plan of care. Patient was seen and examined. Past Medical History Past Medical History: Coronary Artery Disease (CAD), Chest Pain / Angina, COPD, Fibromyalgia, Hyperlipidemia, Hypertension, Osteoarthritis (OA) Additional Past Medical History / Comment(s): Chronic back pain, DDD, bulging discs, scoliosis, osteoporosis., PAST HX JAW FX RT-CAUSES HEADACHES-TAKES TEGRETOL, abdominal aneurysm. colitis Last Myocardial Infarction Date:: 06/29/2020 History of Any Multi-Drug Resistant Organisms: None Reported Past Surgical History: Breast Surgery, Heart Catheterization With Stent, Hysterectomy, Orthopedic Surgery Additional Past Surgical History / Comment(s): Back injections, L patellar surgery, R carpal tunnel release, L breast benign biopsy, sinus surgery, EGD Past Anesthesia/Blood Transfusion Reactions: No Reported Reaction Date of Last Stent Placement:: 05/10/20 Past Psychological History: Anxiety, Depression Smoking Status: Current every day smoker Past Alcohol Use History: None Reported Past Drug Use History: None Reported - Past Family History Mother Family Medical History: Cancer Additional Family Medical History / Comment(s): Mother had lupus and TB Father History Unknown: Yes Medications and Allergies Home Medications Medication Instructions Recorded Confirmed Type traZODone HCL 150 mg PO HS 30 Days tablet 04/17/22 10/06/24 Rx Sertraline [Zoloft] 150 mg PO DAILY 12/23/22 10/06/24 History Dicyclomine [Bentyl] 10 mg PO AC-TID 06/14/24 10/06/24 History HYDROcodone/APAP 5-325MG [[place] 1 tab PO BID PRN 30 Days #60 tab 07/22/24 0 10/06/24 Rx 5-325] Ondansetron Odt [Zofran Odt] 4 mg PO Q8HR PRN #12 tab 08/01/24 10/06/24 Rx Pantoprazole [Protonix] 40 mg PO DAILY 08/07/24 10/06/24 History Aspirin/Acetaminophen/Caffeine 3 tab PO BID 10/06/24 10/06/24 History [Excedrin Extra Strength Caplet] Atorvastatin [Lipitor] 40 mg PO HS 10/06/24 10/06/24 History Famotidine [Pepcid] 20 mg PO HS PRN 10/06/24 10/06/24 History hydrALAZINE HCL [Apresoline] 10 mg PO BID PRN 10/06/24 10/06/24 History lisinopriL [Zestril] 5 mg PO DAILY 10/06/24 10/06/24 History Allergies Allergy/AdvReac Type Severity Reaction Status Date / Time hydralazine AdvReac TONGUE Verified 10/06/24 16:44 NUMBNESS ibuprofen AdvReac NIGHTMARES Verified 10/06/24 16:44 Iodinated Contrast Media AdvReac Nausea & Verified 10/06/24 16:44 [Iodinated Contrast Media - Vomiting IV Dye] povidone-iodine AdvReac Nausea & Verified 10/06/24 16:44 [From Betadine] Vomiting soap [From Betadine] AdvReac Nausea & Verified 10/06/24 16:44 Vomiting Physical Exam Vitals: Vital Signs Temp Pulse Resp BP Pulse Ox 10/07/24 06:36 97.4 F L 67 15 127/76 94 L 10/07/24 04:29 66 13 104/61 93 L 10/07/24 02:01 75 15 114/74 95 10/06/24 23:53 98.3 F 85 16 170/105 95 10/06/24 21:12 97 16 163/110 95 10/06/24 18:01 75 18 174/111 10/06/24 17:21 83 196/125 10/06/24 15:37 107 H 211/142 10/06/24 14:22 98.3 F 108 H 18 164/146 100 Intake and Output 10/06/24 10/07/24 10/07/24 22:59 06:59 14:59 Other: Weight 37.195 kg Results 10/06/24 14:43 10/06/24 14:43 Cardiac Enzymes 10/06/24 10/06/24 10/06/24 Range/Units 14:43 14:43 17:42 AST 27 (14-36) U/L Troponin I 0.017 0.013 (0.000-0.034) ng/mL 10/06/24 Range/Units 20:08 AST (14-36) U/L Troponin I <0.012 (0.000-0.034) ng/mL Coagulation 10/06/24 Range/Units 14:43 PT 11.5 (10.0-12.5) sec APTT 23.6 (22.0-30.0) sec CBC 10/06/24 Range/Units 14:43 WBC 8.2 (3.8-10.6) k/uL RBC 4.03 (3.80-5.40) m/uL Hgb 12.5 (11.4-16.0) gm/dL Hct 38.6 (34.0-46.0) % Plt Count 291 (150-450) k/uL Comprehensive Metabolic Panel 10/06/24 Range/Units 14:43 Sodium 137 (137-145) mmol/L Potassium 3.4 L (3.5-5.1) mmol/L Chloride 103 (98-107) mmol/L Carbon Dioxide 26 (22-30) mmol/L BUN 9 (7-17) mg/dL Creatinine 0.82 (0.52-1.04) mg/dL Glucose 121 H (74-99) mg/dL Calcium 9.1 (8.4-10.2) mg/dL AST 27 (14-36) U/L ALT 10 (4-34) U/L Alkaline Phosphatase 68 (38-126) U/L Total Protein 6.8 (6.3-8.2) g/dL Albumin 4.1 (3.5-5.0) g/dL Current Medications Generic Name Dose Route Start Last Admin Trade Name Freq PRN Reason Stop Dose Admin Acetaminophen 650 mg 10/06/24 16:37 Acetaminophen Tab 325 Mg Tab PO Q6HR PRN Mild Pain or Fever > 100.5 Acetaminophen/Aspirin/Caffeine 3 each 10/07/24 09:00 10/07/24 08:16 [id number] 1 Each Tab PO 3 each BID JAKE Administration Hydrocodone Bitart/Acetaminophen 1 each 10/06/24 16:37 10/07/24 05:49 Hydrocodone/Apap 5-325mg 1 Each Tab PO 1 each Q4HR PRN Administration Moderate Pain (Scale 4 to 6) Atorvastatin Calcium 40 mg 10/07/24 21:00 Atorvastatin 40 Mg Tab PO HS JAKE Dicyclomine HCl 10 mg 10/07/24 07:30 10/07/24 08:16 Dicyclomine 10 Mg Cap PO 10 mg AC-TID JAKE Administration Famotidine 20 mg 10/07/24 06:09 Famotidine 20 Mg Tab PO HS PRN GI Upset Hydralazine HCl 10 mg 10/07/24 06:09 Hydralazine Hcl 10 Mg Tab PO BID PRN BP > 150/90 Hydromorphone HCl 1 mg 10/06/24 16:37 10/07/24 09:19 Hydromorphone 1 Mg/Ml 1 Ml Syringe IVP 1 mg Q3HR PRN Administration Severe Pain (Scale 7 to 10) Lisinopril 5 mg 10/07/24 00:18 10/07/24 08:16 Lisinopril 5 Mg Tab PO 5 mg DAILY JAKE Administration Melatonin 5 mg 10/07/24 00:30 10/07/24 00:41 Melatonin 5 Mg Tablet PO 5 mg HS JAKE Administration Naloxone HCl 0.2 mg 10/06/24 16:37 Naloxone 0.4 Mg/Ml 1 Ml Vial IV Q2M PRN Opioid Reversal Ondansetron HCl 4 mg 10/07/24 06:09 Ondansetron Odt 4 Mg Tab PO Q8HR PRN Nausea Pantoprazole Sodium 40 mg 10/07/24 07:30 10/07/24 08:15 Pantoprazole 40 Mg Tablet PO 40 mg DAILY@0730 JAKE Administration Sertraline HCl 150 mg 10/07/24 09:00 10/07/24 08:17 Sertraline 50 Mg Tab PO 150 mg DAILY JAKE Administration Trazodone HCl 150 mg 10/07/24 00:30 10/07/24 00:41 Trazodone Hcl 50 Mg Tab PO 150 mg HS JAKE Administration Intake and Output 10/06/24 10/07/24 10/07/24 22:59 06:59 14:59 Other: Weight 37.195 kg Patient Weight 10/08/24 06:59 Weight 37.195 kg 10/06/24 14:43 10/06/24 14:43
[2024-10-07] MEDS: METOPROLOL SUCCINATE (ER) 25 MG TAB.ER.24H PO SCH (10:58)
[2024-10-07] MEDS: SODIUM CHLORIDE 0.9% 1,000 ML IV SCH (11:55)
--- NOTE | 2024-10-07 12:01 | P.CONS ---
History of Present Illness - Reason for Consult Consult date: 10/07/24 Abdominal pain, nausea and vomiting Requesting physician: Rajwinder Love - Chief Complaint Abdominal pain - History of Present Illness This a pleasant 69-year-old female with a history of coronary artery disease, abdominal aortic aneurysm that is stable and being monitored, chronic abdominal pain and diarrhea who has been seen and evaluated multiple times and who was re cently admitted at [facility] and treated with antibiotics for reportedly colitis. Patient was seen by gastroenterology in July secondary to abdominal pain and diarrhea with reported CT evidence of colitis. She has been on multiple antibiotics since that time from her PCP. She has a history of chronic abdominal pain and diarrhea and he has seen gastroenterology and underwent an EGD January 2023 with findings of diffuse gastritis and hiatal hernia also had colonoscopy in May 2022 with normal findings other than scattered sigmoid diverticulosis recommending repeat colonoscopy in 10 years. During last hospitalization patient was given Bentyl and was post follow-up with gastroenterology. She states she has no more Bentyl at home has not been taking it. States she is not vomiting but she has dry heaves. Abdominal pain can be in her lower abdomen now it is in the mid to upper abdomen. No dry heaves or vomiting since yesterday. Labs are unremarkable, CT abdomen pelvis showed no acute findings to explain patient's symptoms. She has been started on Bentyl, and Protonix. Patient denies any hematemesis, no hematochezia or melena. Review of Systems REVIEW OF SYSTEMS: CARDIOPULMONARY: No chest pain or shortness of breath. Gastrointestinal: Abdominal pain. Nausea with dry heaves. No hematemesis, coffee-ground emesis. No rectal bleeding, or melena. GENITOURINARY: No dysuria or hematuria. MUSCULOSKELETAL: Reports normal range of motion., Joint pain. Chronic back pain. SKIN: No rashes. No jaundice. ENDOCRINE: No chills, fevers. No excessive weight gain or loss. No polydipsia or polyuria. PSYCHIATRIC: Unremarkable. NEUROLOGY: No change in mental status. Denies dizziness, headache. ENT: Vision unremarkable. CONSTITUTIONAL: No recent weight loss. No fever, chills, night sweats. Past Medical History Past Medical History: Coronary Artery Disease (CAD), Chest Pain / Angina, COPD, Fibromyalgia, Hyperlipidemia, Hypertension, Osteoarthritis (OA) Additional Past Medical History / Comment(s): Chronic back pain, DDD, bulging discs, scoliosis, osteoporosis., PAST HX JAW FX RT-CAUSES HEADACHES-TAKES TEGRETOL, abdominal aneurysm. colitis Last Myocardial Infarction Date:: 06/29/2020 History of Any Multi-Drug Resistant Organisms: None Reported Past Surgical History: Breast Surgery, Heart Catheterization With Stent, Hysterectomy, Orthopedic Surgery Additional Past Surgical History / Comment(s): Back injections, L patellar surgery, R carpal tunnel release, L breast benign biopsy, sinus surgery, EGD Past Anesthesia/Blood Transfusion Reactions: No Reported Reaction Date of Last Stent Placement:: 05/10/20 Past Psychological History: Anxiety, Depression Smoking Status: Current every day smoker Past Alcohol Use History: None Reported Past Drug Use History: None Reported - Past Family History Mother Family Medical History: Cancer Additional Family Medical History / Comment(s): Mother had lupus and TB Father History Unknown: Yes Medications and Allergies Home Medications Medication Instructions Recorded Confirmed Type traZODone HCL 150 mg PO HS 30 Days tablet 04/17/22 10/06/24 Rx Sertraline [Zoloft] 150 mg PO DAILY 12/23/22 10/06/24 History Dicyclomine [Bentyl] 10 mg PO AC-TID 06/14/24 10/06/24 History HYDROcodone/APAP 5-325MG [[place] 1 tab PO BID PRN 30 Days #60 tab 07/22/24 10/06/24 Rx 5-325] Ondansetron Odt [Zofran Odt] 4 mg PO Q8HR PRN #12 tab 08/01/24 10/06/24 Rx Pantoprazole [Protonix] 40 mg PO DAILY 08/07/24 10/06/24 History Aspirin/Acetaminophen/Caffeine 3 tab PO BID 10/06/24 10/06/24 History [Excedrin Extra Strength Caplet] Atorvastatin [Lipitor] 40 mg PO HS 10/06/24 10/06/24 History Famotidine [Pepcid] 20 mg PO HS PRN 10/06/24 10/06/24 History hydrALAZINE HCL [Apresoline] 10 mg PO BID PRN 10/06/24 10/06/24 History lisinopriL [Zestril] 5 mg PO DAILY 10/06/24 10/06/24 History Allergies Allergy/AdvReac Type Severity Reaction Status Date / Time hydralazine AdvReac TONGUE Verified 10/06/24 16:44 NUMBNESS ibuprofen AdvReac NIGHTMARES Verified 10/06/24 16:44 Iodinated Contrast Media AdvReac Nausea & Verified 10/06/24 16:44 [Iodinated Contrast Media - Vomiting IV Dye] povidone-iodine AdvReac Nausea & Verified 10/06/24 16:44 [From Betadine] Vomiting soap [From Betadine] AdvReac Nausea & Verified 10/06/24 16:44 Vomiting Physical Exam Vitals: Vital Signs Temp Pulse Resp BP Pulse Ox 10/07/24 06:36 97.4 F L 67 15 127/76 94 L 10/07/24 04:29 66 13 104/61 93 L 10/07/24 02:01 75 15 114/74 95 10/06/24 23:53 98.3 F 85 16 170/105 95 10/06/24 21:12 97 16 163/110 95 10/06/24 18:01 75 18 174/111 10/06/24 17:21 83 196/125 10/06/24 15:37 107 H 211/142 10/06/24 14:22 98.3 F 108 H 18 164/146 100 Intake and Output 10/06/24 10/07/24 10/07/24 22:59 06:59 14:59 Other: Weight 37.195 kg General appearance: The patient is alert, oriented, appears in no acute distress. HET: Head is normocephalic and atraumatic. Conjunctiva pink. Sclera anicteric. Neck: Supple without lymphadenopathy. Trachea midline. Heart: Regular. Lungs: Equal expansion, normal respiratory effort. Abdomen: Soft, thin, mild mid abdominal tenderness, nondistended. Skin: No rashes. No jaundice. Extremities: Normal skin color and turgor. No pedal edema. Neurological: No focal deficits. Alert and oriented x3. Results CBC & Chem 7: 10/06/24 14:43 10/06/24 14:43 Labs: Abnormal Lab Results - Last 24 Hours (Table) 10/06/24 10/06/24 Range/Units 14:43 14:52 Potassium 3.4 L (3.5-5.1) mmol/L Glucose 121 H (74-99) mg/dL Urine Appearance Cloudy H (Clear) Urine Protein Trace H (Negative) Urine Bacteria Rare H (None) /hpf Comments: CT abdomen pelvis with contrast reports no bowel obstruction or inflammation. No free intraperitoneal air or fluid. Stable abdominal aortic aneurysm. Stable moderate right renal atrophy. Assessment and Plan (1) Chronic abdominal pain Narrative/Plan: 69-year-old female known to GI services with chronic diarrhea abdominal pain and nausea vomiting which she states is only dry heaves. She had recent upper endoscopy in January 2023 with findings of diffuse gastritis and hiatal hernia colonoscopy in 2021 that was normal was scattered diverticulosis. Apparently patient was recently at outside hospital diagnosed and treated with antibiotics for colitis. Increased diarrhea could certainly be secondary to recent antibiotic use. Repeat CT scan shows no acute findings. Likely patient is dealing with IBS. Recommend continuing Bentyl 10 mg 3 times daily, continue Protonix for GI prophylaxis and GERD. No plans at this time for any endoscopic evaluation. Will continue to monitor. Current Visit: Yes Status: Acute Code(s): R10.9 - UNSPECIFIED ABDOMINAL PAIN; G89.29 - OTHER CHRONIC PAIN SNOMED Code(s): 595212293 (2) Nausea and vomiting Current Visit: Yes Status: Acute Code(s): R11.2 - NAUSEA WITH VOMITING, UNSPECIFIED SNOMED Code(s): 04003225 (3) Chronic diarrhea Current Visit: No Status: Acute Code(s): K52.9 - NONINFECTIVE GASTROENTERITIS AND COLITIS, UNSPECIFIED SNOMED Code(s): 776239498 Plan: 1. Continue symptomatic and supportive care 2. Dicyclomine 10 mg 3 times daily 3. Protonix 40 mg daily 4. Diet as tolerated 5. Will continue to monitor, no plans for endoscopic evaluation at this time. If symptoms continue may consider endoscopic evaluation otherwise can be done as an outpatient. Thank you for this consultation, we will continue to follow. Dr. Jenny Cornelius I agree with the dictator's note, documented as a scribe by Linette Appiah.
[2024-10-07] MEDS ORDERED: POTASSIUM CHLORIDE 10 MEQ in WATER FOR INJECTION 1 100ML.BAG IVPB SCH (13:30)
--- NOTE | 2024-10-07 13:32 | P.HPIM ---
History of Present Illness H&P Date: 10/07/24 Chief Complaint: Abdominal pain Patient is a 69-year-old female with coronary artery disease with stent placement in 2019, heart failure with reduced ejection fraction of 45 to 50% (per echo done in January 2024), history of chest pain and angina, COPD, fibromyalgia, hyperlipidemia, hypertension, abdominal aneurysm presented to the emergency department for abdominal pain. Patient was recently discharged from [facility] earlier this week after being admitted for 3 days for abdominal pain and nausea/vomiting. Patient felt like her symptoms did not get better after discharge which made her to come to the ED last night. Patient stated that she was discharged with antibiotics to take. Patient was seen at bedside. She stated that the symptoms first started about a week and half ago while she was laying in bed. She started having nausea, vomiting, belly pain along with diarrhea. Patient reported a 10 out of 10 sharp and stabbing epigastric pain prior to admission last night which he stopped a little bit after she received Dilaudid 1 mg. Patient reports that her diarrhea has largely been watery with no signs of melena, hematochezia, hemoptysis, hematemesis. Patient denies fever, chills, shortness of breath. Patient reported a dry heave, chest pain and palpitations. ED documentation reviewed. In the ED patient was treated with Dilaudid 1 mg IV x 1, Zofran 4 mg IV x 1, a bolus of normal saline, Benadryl 50 mg IV x 1, Pepcid 20 mg IV x 1, Solu-Medrol 125 mg IV x 1, labetalol 20 mg IV x 2, potassium chloride 40 mEq x 1 Vitals on admission temperature 97.4, pulse rate 67, respiratory rate 15, blood pressure 127/76, O2 sat 94% on room air EKG independently interpreted as sinus tachycardia with occasional suprave ntricular premature complexes with ventricular rate of 106 bpm, QTc interval 408 ms CXR shows no acute process CT of the abdomen pelvis shows no bowel obstruction or inflammation. No free intraperitoneal air or fluid. Stable abdominal aortic aneurysms as described. Stable moderate right renal atrophy. Labs on admission show WBC 8.2, hemoglobin 12.5, hematocrit 38.6, platelet 291, PT 11.5, PTT 23.6, INR 1.0, sodium 137, potassium 3.4, chloride 103, carbon dioxide 26, BUN 9, creatinine 0.82, glucose 121, lactic acid 0.8, troponin less than 0.012, lipase 223 UA shows negative for nitrites and leukocyte esterase, WBC less than 1 Review of systems: Pertinent positives and negatives as discussed in HPI, a complete review of systems was performed and all other systems are negative. PMH: coronary artery disease with stent placement in 2019, heart failure with reduced ejection fraction of 45 to 50% (per echo done in January 2024), history of chest pain and angina, COPD, fibromyalgia, hyperlipidemia, hypertension, abdominal aneurysm PSH: Breast surgery, heart cath with stent in 2019, another heart cath done in 2023, hysterectomy, orthopedic surgery FMH: Mother had a history of lupus and TB Allergies: Hydralazine, ibuprofen, iodinated contrast media, povidone iodine, soap Social history: Tobacco: Currently everyday smoker Alcohol: None reported Recreational drugs: None reported Travel: No travel history Sick contacts: No sick contacts Physical examination: Vital signs reviewed General: nontoxic, no distress, appears at stated age Derm: warm, dry, intact Head: atraumatic, normocephalic, symmetric Eyes: EOMI, anicteric sclera Mouth: no lip lesion, mucus membranes moist Cardiovascular: S1 S2 reg, no murmur Lungs: CTA bilateral, no rhonchi, no rales, no accessory muscle use Abdominal: Soft, no rebound tenderness, diffuse epigastric tenderness with light palpation, negative Dang sign Extremities: No cyanosis, clubbing, or pedal edema. Neuro: Alert, Oriented, Gross neurological examination did not reveal any focal deficits. Cranial nerves II to XII grossly intact. Bilateral upper and lower extremity muscle strength intact and sensation intact. Psych: well appearing, appropriate affect Assessment/Plan: Patient is a 69-year-old female with coronary artery disease with stent placement in 2019, heart failure with reduced ejection fraction of 45 to 50% (per echo done in January 2024), history of chest pain and angina, COPD, fibromyalgia, hyperlipidemia, hypertension, abdominal aneurysm presented to the emergency department for abdominal pain. Patient will be admitted to internal medicine service. Active: #. Viral gastroenteritis #. Colitis CT scan showed no bowel obstruction or inflammation. No free intraperitoneal air or fluid. Stable abdominal aortic aneurysms as described. Stable moderate right renal atrophy. Continue with normal saline at 75 cc an hour Increase Protonix 40 mg to twice daily Continue with Zofran and acetaminophen as needed GI has been consulted. GI has no plans for endoscopic evaluation for this patient at this time. Ordered C. difficile testing as patient has recently used antibiotics #. Hypokalemia Potassium 3.4, potassium chloride 40 mill equivalent p.o. x 1 was given in the ED Recheck morning BMP #. Hyperglycemia Glucose 121 Patient has no history of diabetes Accu-Cheks ACHS Chronic: #. Hypertension Restart lisinopril 5 mg daily #. Hyperlipidemia Restart home Lipitor 40 mg at bedtime #. Depression Restart home Zoloft 150 mg daily F: No restrictions E: Replete as needed N: Heart healthy diet A: EMS DVT prophylaxis: Lovenox 40 mg subcu daily The patient is admitted with an anticipated less than 2 midnight stay for evaluation of abdominal pain CODE STATUS: Full code Discussed with: Patient Anticipated discharge place: Home Past Medical History Past Medical History: Coronary Artery Disease (CAD), Chest Pain / Angina, COPD, Fibromyalgia, Hyperlipidemia, Hypertension, Osteoarthritis (OA) Additional Past Medical History / Comment(s): Chronic back pain, DDD, bulging discs, scoliosis, osteoporosis., PAST HX JAW FX RT-CAUSES HEADACHES-TAKES TEGRETOL, abdominal aneurysm. colitis Last Myocardial Infarction Date:: 06/29/2020 History of Any Multi-Drug Resistant Organisms: None Reported Past Surgical History: Breast Surgery, Heart Catheterization With Stent, Hysterectomy, Orthopedic Surgery Additional Past Surgical History / Comment(s): Back injections, L patellar surgery, R carpal tunnel release, L breast benign biopsy, sinus surgery, EGD Past Anesthesia/Blood Transfusion Reactions: No Reported Reaction Date of Last Stent Placement:: 05/10/20 Past Psychological History: Anxiety, Depression Smoking Status: Current every day smoker Past Alcohol Use History: None Reported Past Drug Use History: None Reported - Past Family History Mother Family Medical History: Cancer Additional Family Medical History / Comment(s): Mother had lupus and TB Father History Unknown: Yes Medications and Allergies Home Medications Medication Instructions Recorded Confirmed Type traZODone HCL 150 mg PO HS 30 Days tablet 04/17/22 10/06/24 Rx Sertraline [Zoloft] 150 mg PO DAILY 12/23/22 10/06/24 History Dicyclomine [Bentyl] 10 mg PO AC-TID 06/14/24 10/06/24 History HYDROcodone/APAP 5-325MG [[place] 1 tab PO BID PRN 30 Days #60 tab 07/22/24 10/06/24 Rx 5-325] Ondansetron Odt [Zofran Odt] 4 mg PO Q8HR PRN #12 tab 08/01/24 10/06/24 Rx Pantoprazole [Protonix] 40 mg PO DAILY 08/07/24 10/06/24 History Aspirin/Acetaminophen/Caffeine 3 tab PO BID 10/06/24 10/06/24 History [Excedrin Extra Strength Caplet] Atorvastatin [Lipitor] 40 mg PO HS 10/06/24 10/06/24 History Famotidine [Pepcid] 20 mg PO HS PRN 10/06/24 10/06/24 History hydrALAZINE HCL [Apresoline] 10 mg PO BID PRN 10/06/24 10/06/24 History lisinopriL [Zestril] 5 mg PO DAILY 10/06/24 10/06/24 History Allergies Allergy/AdvReac Type Severity Reaction Status Date / Time hydralazine AdvReac TONGUE Verified 10/06/24 16:44 NUMBNESS ibuprofen AdvReac NIGHTMARES Verified 10/06/24 16:44 Iodinated Contrast Media AdvReac Nausea & Verified 10/06/24 16:44 [Iodinated Contrast Media - Vomiting IV Dye] povidone-iodine AdvReac Nausea & Verified 10/06/24 16:44 [From Betadine] Vomiting soap [From Betadine] AdvReac Nausea & Verified 10/06/24 16:44 Vomiting Physical Exam Vitals: Vital Signs Temp Pulse Resp BP Pulse Ox 10/07/24 06:36 97.4 F L 67 15 127/76 94 L 10/07/24 04:29 66 13 104/61 93 L 10/07/24 02:01 75 15 114/74 95 10/06/24 23:53 98.3 F 85 16 170/105 95 10/06/24 21:12 97 16 163/110 95 10/06/24 18:01 75 18 174/111 10/06/24 17:21 83 196/125 10/06/24 15:37 107 H 211/142 10/06/24 14:22 98.3 F 108 H 18 164/146 100 Results CBC & Chem 7: 10/06/24 14:43 10/06/24 14:43 Labs: Abnormal Lab Results - Last 24 Hours (Table) 10/06/24 10/06/24 Range/Units 14:43 14:52 Potassium 3.4 L (3.5-5.1) mmol/L Glucose 121 H (74-99) mg/dL Urine Appearance Cloudy H (Clear) Urine Protein Trace H (Negative) Urine Bacteria Rare H (None) /hpf
[2024-10-07] MEDS ORDERED: NICOTINE 7MG/24HR PATCH TRANSDERM STA (14:03)
[2024-10-07] MEDS: NICOTINE 21MG/24HR PATCH TRANSDERM STA (14:32)
[2024-10-07 17:58] LABS: Glucose,Whole Blood 118 mg/dL (70-110)
[2024-10-07] MEDS: ATORVASTATIN 40 MG TAB PO SCH (20:00)
[2024-10-07] MEDS ORDERED: NON FORMULARY DRUG (Trazodone Hcl [Trazodone Hcl] 150 MG Tablet) PO SCH (21:00)
[2024-10-08 08:41] LABS: African American GFR (CKD) 59 (>60 ml/min/1.73 sqM); Anion Gap 7 mmol/L; Blood Urea Nitrogen 21 mg/dL (7-17); Calcium 8.8 mg/dL (8.4-10.2); Carbon Dioxide 19 mmol/L (22-30); Chloride 113 mmol/L (98-107); Glucose 103 mg/dL (74-99); Non-African American GFR(CKD) 51 (>60 ml/min/1.73 sqM); Potassium 4.4 mmol/L (3.5-5.1); Sodium 139 mmol/L (137-145)
[2024-10-08] MEDS: ENOXAPARIN 40 MG/0.4 ML SYRINGE SQ SCH (08:57)
--- NOTE | 2024-10-08 09:02 | P.PN ---
Subjective Progress Note Date: 10/08/24 Principal diagnosis: Abdominal pain This a pleasant 69-year-old female with a history of coronary artery disease, abdominal aortic aneurysm that is stable and being monitored, chronic abdominal pain and diarrhea who has been seen and evaluated multiple times and who was recently admitted at [facility] and treated with antibiotics for reportedly colitis. Patient was seen by gastroenterology in July secondary to abdominal pain and diarrhea with reported CT evidence of colitis. She has been on multiple antibiotics since that time from her PCP. She has a history of chronic abdominal pain and diarrhea and he has seen gastroenterology and underwent an EGD January 2023 with findings of diffuse gastritis and hiatal hernia also had colonoscopy in May 2022 with normal findings other than scattered sigmoid diverticulosis recommending repeat colonoscopy in 10 years. During last hospitalization patient was given Bentyl and was post follow-up with gastro enterology. She states she has no more Bentyl at home has not been taking it. States she is not vomiting but she has dry heaves. Abdominal pain can be in her lower abdomen now it is in the mid to upper abdomen. No dry heaves or vomiting since yesterday. Labs are unremarkable, CT abdomen pelvis showed no acute findings to explain patient's symptoms. She has been started on Bentyl, and Protonix. Patient denies any hematemesis, no hematochezia or melena. 10/08/2024 Patient is seen and examined today as a follow-up. She states she still has abdominal pain in her mid abdomen. She is asking for more pain medication. She is having no nausea or vomiting. No watery diarrhea but she is having loose stool. She is tolerating her diet. Objective - Vital Signs Vital signs: Vital Signs Temp 98.4 F 10/08/24 01:10 Pulse 78 10/08/24 01:45 Resp 18 10/08/24 01:45 BP 121/81 10/08/24 01:10 Pulse Ox 95 10/08/24 01:10 FiO2 Intake & Output 10/07/24 10/07/24 10/08/24 06:59 18:59 06:59 Weight 37.195 kg Other: Voiding Method Toilet Toilet # Voids 1 - Exam General appearance: The patient is alert, oriented, appears in no acute distress. HET: Head is normocephalic and atraumatic. Conjunctiva pink. Sclera anicteric. Neck: Supple without lymphadenopathy. Abdomen: Soft, lower abdominal tenderness, nondistended. Extremities: Normal skin color and turgor. No pedal edema Skin: No rashes, no jaundice Neurological: No focal deficits. Alert and oriented. - Labs CBC & Chem 7: 10/06/24 14:43 10/08/24 07:57 Labs: Abnormal Lab Results - Last 24 Hours (Table) 10/07/24 Range/Units 17:57 POC Glucose (mg/dL) 118 H (70-110) mg/dL Assessment and Plan (1) Chronic abdominal pain Narrative/Plan: 69-year-old female known to GI services with chronic diarrhea abdominal pain and nausea vomiting which she states is only dry heaves. She had recent upper endoscopy in January 2023 with findings of diffuse gastritis and hiatal hernia colonoscopy in 2021 that was normal was scattered diverticulosis. Apparently patient was recently at outside hospital diagnosed and treated with antibiotics for colitis. Increased diarrhea could certainly be secondary to recent antibiotic use. Repeat CT scan shows no acute findings. Likely patient is dealing with IBS. Recommend continuing Bentyl 10 mg 3 times daily, continue Protonix for GI prophylaxis and GERD. No plans at this time for any endoscopic evaluation. Recommend discharged with dicyclomine as well as continue Protonix 40 mg daily and Pepcid at bedtime. Recommend small frequent meals. No CT evidence of colitis. Can follow-up with gastroenterology in 1 to 2 weeks. Current Visit: Yes Status: Acute Code(s): R10.9 - UNSPECIFIED ABDOMINAL PAIN; G89.29 - OTHER CHRONIC PAIN SNOMED Code(s): 768782278 (2) Nausea and vomiting Current Visit: Yes Status: Acute Code(s): R11.2 - NAUSEA WITH VOMITING, UNSPECIFIED SNOMED Code(s): 20805606 (3) Chronic diarrhea Current Visit: No Status: Acute Code(s): K52.9 - NONINFECTIVE GASTROEN TERITIS AND COLITIS, UNSPECIFIED SNOMED Code(s): 072969287 Plan: 1. Continue symptomatic and supportive care 2. Dicyclomine 10 mg 3 times daily 3. Protonix 40 mg daily, can continue Pepcid 20 mg at bedtime 4. Diet as tolerated 5. No plans on endoscopic evaluation. Patient can follow-up with gastroenterology as outpatient Thank you for this consultation, patient is cleared from gastroenterology for discharge. We will sign off at this time. Dr. Jenny Cornelius I agree with the dictator's note, documented as a scribe by Linette Appiah.
[2024-10-08 09:15] VITALS: BP 149/84; PULSE 69; RESP 16; TEMP 98.1
[2024-10-08 11:01] LABS: HGB 10.1 g/dL (12.0-15.0); MCH 30.2 pg (27.0-32.0); MCHC 30.6 g/dL (32.0-37.0); MCV 98.8 FL (80.0-97.0); Mean Platelet Volume 10.8 FL (9.5-12.2); NRBC Per 100 WBC 0 X 10*3/uL (0.00-0.01); Platelet Count 303 X 10*3/uL (140-440); RBC 3.34 X 10*6/uL (4.10-5.20); RDW 13.9 % (11.5-14.5); WBC 10.96 X 10*3/uL (4.50-10.00)
--- NOTE | 2024-10-08 11:29 | P.PN ---
Subjective Progress Note Date: 10/08/24 Reason for Consult (text): Chest pain, hypertension History of present illness: This is a 69-year-old female patient previously seen by Dr. Alex in the office in 2022 with past medical history of coronary artery disease with known chronic total occlusion of the RCA with intermediate disease involving the LAD, hypertension, dyslipidemia, carotid atherosclerosis, infrarenal aortic aneurysm, lower extremity PAD, tobacco use. We have been asked to evaluate the patient for chest pain and hypertension. Patient gives history that she was recently hospitalized at [facility] for abdominal pain and had colitis and low blood pressure. She states she was having significant problems with dry heaving. Patient presents now to the emergency center due to epigastric pain and tenderness. Tenderness goes around to the lower rib cage on the left side. Blood pressure 127/76, heart rate 67, pulse ox 94% on room air. Patient was found to have significantly high blood pressure on admission and is status post labetalol 20 mg x 2 IV. Blood pressure was 164/146. -EKG: Sinus rhythm with no acute ST changes -Chest x-ray: No acute process -Laboratory studies: CBC normal. INR normal. Potassium 3.4, blood sugar 121 otherwise CMP normal. Troponin negative x 3. Magnesium 1.8. -Home cardiac medications: Atorvastatin 40 mg at bedtime, hydralazine 10 mg twice daily as needed, lisinopril 5 mg daily. -Echocardiogram performed 02/04/2024 reveals EF of 45 to 50%, technically difficult study. -Cardiac catheterization performed 12/26/2022 revealed MUSICIAN INSTRUMENTAL of the RCA, intermediate disease of the M01. FFR was nonischemic. Previous PCI of the left circumflex 04/2020. 10/08/2024 Patient seen and examined. Yesterday multiple medication changes were made including discontinuing as needed hydralazine, discontinuing lisinopril and patient was started on metoprolol succinate. Blood pressure is 149/84, pulse ox 96% on room air, heart rate in the 60s and 70s. Repeat blood work reveals BUN 21, creatinine 1.11, hemoglobin 10.1. Patient denies having chest pain. She states she continues to have abdominal pain. Physical examination: Gen: This is a 69-year-old female in no acute distress VS: reviewed HEENT: Head is atraumatic, normocephalic. Pupils equal, round. Sclerae is anicteric. NECK: Supple. No JVD. LUNGS: Clear to auscultation. No wheezes or rhonchi. No intercostal retractions. HEART: Regular rate and rhythm. No murmur. ABDOMEN: Soft epigastric tenderness. EXTREMITIES: No pedal edema. No calf tenderness. NEUROLOGICAL: Patient is awake, alert and oriented x3. Assessment: Uncontrolled hypertension Epigastric pain Atypical chest pain, acute coronary syndrome ruled out Patient reported recent admission at [facility] for colitis History of coronary artery disease with known chronic total occlusion of the RCA and intermediate disease of the LAD, previous PCI of the circumflex Hypertension Dyslipidemia Carotid atherosclerosis Infrarenal aortic aneurysm Lower extremity PAD Tobacco use and dependence Plan: Continue patient's home cardiac medications with the following changes: Discontinue as needed hydralazine Discontinue lisinopril Continue patient on metoprolol succinate 25 mg daily No further cardiac workup at this time Smoking cessation. Patient will be provided the [place] quit line information at discharge. Cardiology will sign off this case and follow on an as-needed basis. Please reconsult for any new concerns. Patient may follow-up in the office in one to [address] Blanco. Nurse practitioner note has been reviewed, I agree with documented findings and plan of care. Patient was seen and examined. Objective - Vital Signs Vital signs: Vital Signs Temp 98.4 F 10/08/24 01:10 Pulse 78 10/08/24 01:45 Resp 18 10/08/24 01:45 BP 121/81 10/08/24 01:10 Pulse Ox 95 10/08/24 01:10 FiO2 Intake & Output 10/07/24 10/08/24 10/08/24 18:59 06:59 18:59 Weight 37.195 kg Other: Voiding Method Toilet Toilet # Voids 1 - Labs CBC & Chem 7: 10/08/24 03:46 10/08/24 07:57 Labs: Abnormal Lab Results - Last 24 Hours (Table) 10/07/24 10/08/24 Range/Units 17:57 07:57 Chloride 113 H (98-107) mmol/L Carbon Dioxide 19 L (22-30) mmol/L BUN 21 H (7-17) mg/dL Creatinine 1.11 H (0.52-1.04) mg/dL Glucose 103 H (74-99) mg/dL POC Glucose (mg/dL) 118 H (70-110) mg/dL
[2024-10-08 11:49] LABS: Basophils # (A) 0.04 X 10*3/uL (0.00-0.10); Basophils % (A) 0.4 %; Eosinophils # (A) 0.04 X 10*3/uL (0.04-0.35); Eosinophils % (A) 0.4 %; Lymphocytes % (A) 38.3 %; Monocytes % (A) 7.3 %; Neutrophils # (A) 5.84 X 10*3/uL (1.80-7.70); Neutrophils % (A) 53.2 %
--- NOTE | 2024-10-08 12:41 | P.DS ---
Providers Date of admission: 10/06/24 16:33 Expected date of discharge: 10/08/24 Attending physician: Christi Dominique Consults: 10/06/24 16:37 Consult Physician Urgent Consulting Provider: Virgil Peace Consult Reason/Comments: Chest pain, HTN Do you want consulting provider notified?: Yes Consult Physician Urgent Consulting Provider: Charla Cornelius Consult Reason/Comments: Abdominal pain Do you want consulting provider notified?: Yes Primary care physician: Marium Burnsinharini [facility] Course: Hospital course: Patient is a 69-year-old female with coronary artery disease wi th stent placement in 2019, heart failure with reduced ejection fraction of 45 to 50% per echo done in January 2024, history of chest pain and angina, COPD, fibromyalgia, hyperlipidemia, hypertension, abdominal aneurysm presented to the emergency department for abdominal pain. Patient was recently discharged from [facility] earlier this week after being negative for 3 days for abdominal pain and nausea/vomiting. Patient felt like her symptoms did not get better after discharge which made her come to the ED last night. During her initial presentation to the ED, her EKG showed sinus tachycardia with occasional supraventricular premature complexes with ventricular rate of 106 bpm, QTc interval 408 ms. Chest x-ray showed no acute process. CT of abdomen pelvis showed no bowel obstruction or inflammation. No free intraperitoneal air or fluid. Stable abdominal aortic aneurysms as described. Stable moderate right renal atrophy. Both cardiology and GI were consulted. Cardiology initiated patient on metoprolol succinate 25 mg daily and discontinued as needed hydralazine and lisinopril. GI started patient on Protonix 40 mg daily and dicyclomine 10 mg 3 times daily however patient did not need plans for endoscopic evaluation. Patient was seen on 10/08/2024 at bedside. Reports no acute complaints. Patient is currently stable to be discharged back home. Metoprolol succinate 25 mg daily, Protonix 40 mg daily and dicyclomine 10 mg 3 times daily were added to patient's home medication list. Lisinopril 5 mg daily and hydralazine 10 mg twice daily as needed have been discontinued from her home medication list. Patient is encouraged to follow-up with her primary care physician in 1 to 2 [address] Blanco in 1 week following discharge. Physical examination at discharge: GENERAL: This is a 69-year-old in no apparent distress at the time of examination. Pleasant and cooperative. HEENT: Head is atraumatic, normocephalic. Pupils are equal, round, and reactive to light. Sclerae anicteric. Conjunctivae are clear. Mucus membranes of the mouth are moist. Neck is supple. RESPIRATORY: Clear to auscultation. No wheezes, rales, or rhonchi. No use of accessory muscles. Patient maintaining oxygen saturation greater than 92%. No chest wall tenderness is noted on palpation or with deep breathing. CARDIOVASCULAR: Regular rate and rhythm. S1 and S2 noted. No systolic or diastolic murmur auscultated. No JVD noted. No S3 or S4 noted. GASTROINTESTINAL: No distention noted. Abdomen soft and round. Normal active bowel sounds auscultated x 4 quadrants. No pain or tenderness noted upon palpation. INTEGUMENTARY: No cyanosis. No jaundice. No rashes noted. No cellulitis noted. EXTREMITIES: 2+ peripheral pulses. No evidence of peripheral edema. No calf tenderness noted. NEUROLOGIC: Cranial nerves II-XII intact. PSYCHIATRIC: Awake, alert, and oriented X 3. Appropriate affect. Intact judgement and insight. Plan - Discharge Summary Discharge Rx Participant: Yes New Discharge Prescriptions: New Metoprolol Succinate [Metoprolol Succinate ER] 25 mg PO DAILY 30 Days #30 tab Continue traZODone HCL 150 mg PO HS 30 Days tablet Sertraline [Zoloft] 150 mg PO DAILY HYDROcodone/APAP 5-325MG [[place] 5-325] 1 tab PO BID PRN 30 Days #60 tab PRN Reason: Pain Dicyclomine [Bentyl] 10 mg PO AC-TID #90 cap Pantoprazole [Protonix] 40 mg PO DAILY #30 tab Famotidine [Pepcid] 20 mg PO HS PRN PRN Reason: Gi Upset Atorvastatin [Lipitor] 40 mg PO HS Aspirin/Acetaminophen/Caffeine [Excedrin Extra Strength Caplet] 3 tab PO BID Discontinued Ondansetron Odt [Zofran Odt] 4 mg PO Q8HR PRN #12 tab PRN Reason: Nausea lisinopriL [Zestril] 5 mg PO DAILY hydrALAZINE HCL [Apresoline] 10 mg PO BID PRN PRN Reason: BP > 150/90 Discharge Medication List traZODone HCL 150 mg PO HS 30 Days tablet 04/17/22 [Rx] Sertraline [Zoloft] 150 mg PO DAILY 12/23/22 [History] HYDROcodone/APAP 5-325MG [[place] 5-325] 1 tab PO BID PRN 30 Days #60 tab 07/22/24 [Rx] Aspirin/Acetaminophen/Caffeine [Excedrin Extra Strength Caplet] 3 tab PO BID 10/06/24 [History] Atorvastatin [Lipitor] 40 mg PO HS 10/06/24 [History] Famotidine [Pepcid] 20 mg PO HS PRN 10/06/24 [History] Dicyclomine [Bentyl] 10 mg PO AC-TID #90 cap 10/08/24 [Rx] Metoprolol Succinate [Metoprolol Succinate ER] 25 mg PO DAILY 30 Days #30 tab 10/08/24 [Rx] Pantoprazole [Protonix] 40 mg PO DAILY #30 tab 10/08/24 [Rx] Follow up Appointment(s)/Referral(s): Darion Blanco MD [Medical Doctor] - 1 Week Sandra Zuniga NPC [REFERRING] - 2 Weeks Marium Mazariegos MD [Primary Care Provider] - 1-2 days Discharge Disposition: HOME SELF-CARE
[2024-10-09] MEDS ORDERED: ENOXAPARIN 30 MG/0.3 ML SYRINGE SQ SCH (09:00)
== END 2024-10-08 14:32 | disposition home or self-care (01) ==
LOC: EC 14:18 → 6NMEDSUR 16:33
PROVIDERS: ADMIT Hospitalist; ATTEND Hospitalist
DX: A08.4 Viral intestinal infection, unspecified (principal); E87.6 Hypokalemia; R73.9 Hyperglycemia, unspecified; R07.89 Other chest pain; R10.13 Epigastric pain; I73.9 Peripheral vascular disease, unspecified; E78.5 Hyperlipidemia, unspecified; F17.200 Nicotine dependence, unspecified, uncomplicated; F32.A Depression, unspecified; F41.9 Anxiety disorder, unspecified; G89.29 Other chronic pain; I11.0 Hypertensive heart disease with heart failure; I50.22 Chronic systolic (congestive) heart failure; I25.10 Atherosclerotic heart disease of native coronary artery without angina pectoris; I25.2 Old myocardial infarction; I25.82 Chronic total occlusion of coronary artery; I65.29 Occlusion and stenosis of unspecified carotid artery; I71.43 Infrarenal abdominal aortic aneurysm, without rupture; J44.9 Chronic obstructive pulmonary disease, unspecified; M79.7 Fibromyalgia; Z79.899 Other long term (current) drug therapy; Z95.5 Presence of coronary angioplasty implant and graft; Z88.6 Allergy status to analgesic agent; Z88.8 Allergy status to other drugs, medicaments and biological substances; Z91.041 Radiographic dye allergy status
CPT/HCPCS: 96361 ×2; 96372; 96376 ×2; 96374; 96375; 99285; 36415; 93005; 80053; 80048; 82150; 83605; 83690; 83735; 84484; 85025 ×2; 85610; 85730; 81001; 71046; 74177; G0378 ×3; S4990; J1200; J2405; J1650; J3490; J1171 ×2; Q9967; J1920; J2919

== ENCOUNTER 2024-11-09 12:15 | Emergency (ER) | payer MEDICARE ==
[2024-11-09 12:37] LABS: Basophils # (A) 0.1 k/uL (0-0.2); Basophils % (A) 0 %; Eosinophils # (A) 0.2 k/uL (0-0.7); Eosinophils % (A) 1 %; HGB 11.8 gm/dL (11.4-16.0); Lymphocytes # (A) 5.4 k/uL (1.0-4.8); Lymphocytes % (A) 31 %; MCH 30.5 pg (25.0-35.0); MCHC 32.8 g/dL (31.0-37.0); Mean Platelet Volume 8.1; Monocytes # (A) 0.6 k/uL (0-1.0); Monocytes % (A) 4 %; Neutrophils # (A) 10.8 k/uL (1.3-7.7); Neutrophils % (A) 63 %; Platelet Count 262 k/uL (150-450); RBC 3.87 m/uL (3.80-5.40); WBC 17.4 k/uL (3.8-10.6)
[2024-11-09] MEDS: NITROGLYCERIN SL TABS 0.4 MG TAB SUBLINGUAL STA (12:39)
--- NOTE | 2024-11-09 12:44 | ED ---
Chest Pain HPI - General Chief Complaint: Chest Pain Stated Complaint: chest pain Time Seen by Provider: 11/09/24 12:16 Source: patient, EMS, RN notes reviewed, old records reviewed Mode of arrival: EMS Limitations: no limitations - History of Present Illness Initial Comments: This is a 69-year-old female to the ER for evaluation today. Patient presents today for evaluation regards to chest pain chest pain recent cardiac catheterization. Patient has nausea vomiting and shortness of breath MD Complaint: chest pain -: days(s) Onset: during rest Pain Location: substernal Pain Radiation: none Severity: moderate Severity scale (1-10): 3 Consistency: constant Improves With: nothing Worsens With: nothing Other Symptoms: palpitations Treatments Prior to Arrival: none - Related Data Home Medications Medication Instructions Recorded Confirmed Sertraline [Zoloft] 150 mg PO DAILY 12/23/22 11/04/24 Aspirin/Acetaminophen/Caffeine 3 tab PO BID 10/06/24 11/04/24 [Excedrin Extra Strength Caplet] Atorvastatin [Lipitor] 40 mg PO HS 10/06/24 11/04/24 Famotidine [Pepcid] 20 mg PO HS PRN 10/06/24 11/04/24 Albuterol Sulfate [Albuterol 2 puff PO RT-Q4H PRN 11/04/24 11/04/24 Sulfate Hfa] Gabapentin [Neurontin] 100 mg PO BID 11/04/24 11/04/24 Melatonin [Melatonin ODT] 12 mg PO HS 11/04/24 11/04/24 Previous Rx's Medication Instructions Recorded traZODone HCL 150 mg PO HS 30 Days tablet 04/17/22 Dicyclomine [Bentyl] 10 mg PO AC-TID #90 cap 10/08/24 Metoprolol Succinate [Metoprolol 25 mg PO DAILY 30 Days #30 tab 10/08/24 Succinate ER] Pantoprazole [Protonix] 40 mg PO DAILY #30 tab 10/08/24 Aspirin 81 mg PO DAILY #30 tab 11/08/24 Isosorbide Mononitrate ER [Imdur] 30 mg PO DAILY 30 Days #30 tab 11/08/24 Losartan-Hctz 50-12.5 mg [Hyzaar 1 each PO DAILY 30 Days #30 tab 11/08/24 50-12.5] Allergies Allergy/AdvReac Type Severity Reaction Status Date / Time hydralazine AdvReac TONGUE Verified 11/04/24 17:00 NUMBNESS ibuprofen AdvReac NIGHTMARES Verified 11/04/24 17:00 Iodinated Contrast Media AdvReac Nausea & Verified 11/04/24 17:00 [Iodinated Contrast Media - Vomiting IV Dye] povidone-iodine AdvReac Nausea & Verified 11/04/24 17:00 [From Betadine] Vomiting soap [From Betadine] AdvReac Nausea & Verified 11/04/24 17:00 Vomiting Review of Systems ROS Statement: Those systems with pertinent positive or pertinent negative responses have been documented in the HPI. ROS Other: All systems not noted in ROS Statement are negative. EKG Findings - EKG Comments: EKG Findings:: EKG is sinus 81 FL 100 QRS 88 QTc 417 - EKG Results: EKG: interpreted by DAWIT Past Medical History Past Medical History: Coronary Artery Disease (CAD), Chest Pain / Angina, COPD, Fibromyalgia, Hyperlipidemia, Hypertension, Osteoarthritis (OA) Additional Past Medical History / Comment(s): chronic back pain, DDD, bulging discs, scoliosis, osteoporosis, PAST HX JAW FX RT-CAUSES HEADACHES - TAKES TEGRETOL, abdominal aneurysm, colitis Last Myocardial Infarction Date:: 06/29/2020 History of Any Multi-Drug Resistant Organisms: None Reported Past Surgical History: Breast Surgery, Heart Catheterization With Stent, Hysterectomy, Orthopedic Surgery Additional Past Surgical History / Comment(s): Back injections, L patellar surgery, R carpal tunnel release, L breast benign biopsy, sinus surgery, EGD Past Anesthesia/Blood Transfusion Reactions: No Reported Reaction Date of Last Stent Placement:: 05/10/20 Past Psychological History: Anxiety, Depression Smoking Status: Current every day smoker Past Alcohol Use History: None Reported Past Drug Use History: None Reported - Past Family History Mother Family Medical History: Cancer Additional Family Medical History / Comment(s): Mother had lupus and TB Father History Unknown: Yes General Exam Limitations: no limitations General appearance: alert, in no apparent distress Head exam: Present: atraumatic, normocephalic, normal inspection Eye exam: Present: normal appearance, PERRL, EOMI. Absent: scleral icterus, conjunctival injection, periorbital swelling ENT exam: Present: normal exam, mucous membranes moist Neck exam: Present: normal inspection. Absent: tenderness, meningismus, lymphadenopathy Respiratory exam: Present: normal lung sounds bilaterally. Absent: respiratory distress, wheezes, rales, rhonchi, stridor Cardiovascular Exam: Present: regular rate, normal rhythm, normal heart sounds. Absent: systolic murmur, diastolic murmur, rubs, gallop, clicks GI/Abdominal exam: Present: soft, normal bowel sounds. Absent: distended, tenderness, guarding, rebound, rigid Extremities exam: Present: normal inspection, full ROM, normal capillary refill. Absent: tenderness, pedal edema, joint swelling, calf tenderness Back exam: Present: normal inspection Neurological exam: Present: alert, oriented X3, CN II-XII intact Psychiatric exam: Present: normal affect, normal mood Skin exam: Present: warm, dry, intact, normal color. Absent: rash Course Vital Signs 11/09/24 11/09/24 11/09/24 12:25 12:36 13:31 Temperature 97.9 F Pulse Rate 73 66 Pulse Rate [ 79 Bilateral System Support Specialist ] Respiratory 17 22 Rate Blood Pressure 168/104 179/96 O2 Sat by Pulse 95 97 Oximetry 11/09/24 11/09/24 15:29 17:51 Temperature 97.8 F 98.4 F Pulse Rate 69 62 Pulse Rate [ Bilateral System Support Specialist ] Respiratory 22 18 Rate Blood Pressure 164/100 169/100 O2 Sat by Pulse 94 L 97 Oximetry - Reevaluation(s) Reevaluation #1: Medical records reviewed Reevaluation #2: Patient symptoms unchanged Reevaluation #3: Patient informed of results questions answered Reevaluation #4: Was pt. sent in by a medical professional or institution (, PA, SCHOOL OPERATIONS MANAGER, urgent care, hospital, or longterm...) When possible be specific @ -no Did you speak to anyone other than the patient for history (EMS, parent, family, police, friend...)? What history was obtained from this source @ -no Did you review nursing and triage notes (agree or disagree)? Why? @ -agree Are old charts reviewed (outside hosp., previous admission, EMS record, old EKG, old radiological studies, urgent care reports/EKG's, longterm records)? Report findings @ -yes Differential Diagnosis (chest pain, altered mental status, abdominal pain women, abdominal pain men, vaginal bleeding, weakness, fever, dyspnea, syncope, headache, dizziness, GI bleed, back pain, seizure, CVA, palpatations, mental health, musculoskeletal)? @ -prior EKG interpreted by me (3pts min.). @ -yes X-rays interpreted by me (1pt min.). @ -yes negative for acute disease CT interpreted by me (1pt min.). @ -no U/S interpreted by me (1pt. min.). @ -no What testing was considered but not performed or refused? (CT, X-rays, U/S, labs)? Why? @ -none What meds were considered but not given or refused? Why? @ -none Did you discuss the management of the patient with other professionals (professionals i.e. Dr., PA, SCHOOL OPERATIONS MANAGER, lab, RT, psych nurse, social services technician, plaster tender, teacher, recreation officer, case manager specialist)? Give summary @ -no Was smoking cessation discussed for >3mins.? @ -no Was critical care preformed (if so, how long)? @ -no Were there social determinants of health that impacted care today? How? (Homelessness, low income, unemployed, alcoholism, drug addiction, transportation, low edu. Level, literacy, decrease access to med. care, penitentiary, rehab)? @ -none Was there de-escalation of care discussed even if they declined (Discuss DNR or withdrawal of care, Hospice)? DNR status @ -no What co-morbidities impacted this encounter? (DM, HTN, Smoking, COPD, CAD, Cancer, CVA, ARF, Chemo, Hep., AIDS, mental health diagnosis, sleep apnea, morbid obesity)? @ -none Was patient admitted / discharged? Hospital course, mention meds given and route, prescriptions, significant lab abnormalities, going to OR and other pertinent info. @ - 69 female to ER for chest pain. Feels well throughout ER stay symptoms resolved patient can be discharged home Discharge chest pain Undiagnosed new problem with uncertain prognosis? @ -no Drug Therapy requiring intensive monitoring for toxicity (Heparin, Nitro, Insulin, Cardizem)? @ -no Were any procedures done? @ -no Diagnosis/symptom? @ -Chest pain Acute, or Chronic, or Acute on Chronic? @ -Acute Uncomplicated (without systemic symptoms) or Complicated (systemic symptoms)? @ -Complicated Side effects of treatment? @ -no Exacerbation, Progression, or Severe Exacerbation? @ -exacerbation Poses a threat to life or bodily function? How? (Chest pain, [place], [place], pneumonia, PE, COPD, DKA, ARF, appy, cholecystitis, CVA, Diverticulitis, Homicidal, Suicidal, threat to staff... and all critical care pts) @ -yes with chest pain Reevaluation #5: Differential Chest Pain: Stable Angina, Unstable Angina, STEMI, NSTEMI Aortic Dissection, Pneumothorax, Musculoskeletal, Esophageal Spasm GERD, Cholecystitis, Pancreatitis, Zoster, this is not meant to be an all-inclusive list. Chest Pain MDM - MDM 69 female to ER for chest pain. Feels well throughout ER stay symptoms resolved patient can be discharged home Disposition Clinical Impression: Chest pain Disposition: HOME SELF-CARE Condition: Fair Instructions (If sedation given, give patient instructions): Chest Pain (ED) Is patient prescribed a controlled substance at d/c from ED?: No Referrals: None,Stated [Primary Care Provider] - 1-2 days Time of Disposition: 07:00
[2024-11-09] MEDS: SODIUM CHLORIDE 0.9% 1,000 ML IV STA (12:47)
[2024-11-09] MEDS: MORPHINE SULFATE 4 MG/ML SYRINGE IV STA (12:49)
[2024-11-09 12:52] LABS: INR 0.9 (<1.2); Prothrombin Time 10.3 sec (10.0-12.5)
[2024-11-09] MEDS: NITROGLYCERIN OINT 1 INCH/GM PACKET TOPICAL STA (12:53)
[2024-11-09 12:55] LABS: ALT 13 U/L (4-34); AST 26 U/L (14-36); African American GFR (CKD) 64 (>60 ml/min/1.73 sqM); Albumin 3.7 g/dL (3.5-5.0); Alkaline Phosphatase 78 U/L (38-126); Anion Gap 8 mmol/L; Blood Urea Nitrogen 26 mg/dL (7-17); Calcium 9.7 mg/dL (8.4-10.2); Carbon Dioxide 28 mmol/L (22-30); Chloride 102 mmol/L (98-107); Glucose 101 mg/dL (74-99); Lipase 192 U/L (23-300); Magnesium 1.9 mg/dL (1.6-2.3); Non-African American GFR(CKD) 56 (>60 ml/min/1.73 sqM); Potassium 3.8 mmol/L (3.5-5.1); Sodium 138 mmol/L (137-145); Total Bilirubin 0.2 mg/dL (0.2-1.3); Total Protein 6.5 g/dL (6.3-8.2)
--- NOTE | 2024-11-09 12:57 | XR ---
EXAMINATION TYPE: XR chest 2V DATE OF EXAM: 11/09/2024 12:52 PM COMPARISON: CTA chest 1 day earlier CLINICAL INDICATION: Female, 69 years old with history of Chest Pain, TECHNIQUE: Frontal and lateral views of the chest are obtained. FINDINGS: Mild underlying emphysematous change is redemonstrated. There is no suspicious focal air s pace opacity, pleural effusion, or pneumothorax seen. The cardiac silhouette size is within normal l imits. Overlying EKG leads are present. The osseous structures are intact. IMPRESSION: Chronic emphysematous change without acute pulmonary process. [facility], , 11/09/2024 12:55 PM
[2024-11-09 13:01] LABS: NT-Pro-B-Type Natriuretic Pept 2640 pg/mL
[2024-11-09 13:02] LABS: Partial Thromboplastin Time 21.5 sec (22.0-30.0)
[2024-11-09 13:05] LABS: Poikilocytosis (M) Present
[2024-11-09] MEDS: SODIUM CHLORIDE 0.9% 500 ML 500 ML IV STA (16:41)
[2024-11-09] MEDS: MORPHINE SULFATE 4 MG/ML SYRINGE IVP STA (16:42)
[2024-11-09] MEDS: PROCHLORPERAZINE INJ 10 MG/2 ML VIAL IVP STA (16:45)
[2024-11-09 17:48] LABS: Appearance,Urine Clear (Clear); Bilirubin,Urine Negative (Negative); Blood,Urine Negative (Negative); Color,Urine Colorless; Glucose,Urine (UA) Negative (Negative); Ketones,Urine Negative (Negative); Leukocyte Esterase,Urine Negative (Negative); Nitrite,Urine Negative (Negative); Protein,Urine Negative (Negative); Specific Gravity,Urine 1.009 (1.001-1.035); Urobilinogen,Urine <2.0 mg/dL (<2.0)
[2024-11-09 17:54] VITALS: BP 169/100; PULSE 62; RESP 18; TEMP 98.4
== END 2024-11-09 18:15 | disposition home or self-care (01) ==
LOC: EC 12:15
DX: R07.89 Other chest pain (principal); R11.2 Nausea with vomiting, unspecified; R06.02 Shortness of breath; F17.200 Nicotine dependence, unspecified, uncomplicated; Z91.041 Radiographic dye allergy status; Z88.6 Allergy status to analgesic agent; Z91.048 Other nonmedicinal substance allergy status
CPT/HCPCS: 99285 ×2; 96374 ×2; 96375 ×2; 96376 ×2; 96361 ×2; 36415; 93005; 83880; 80053; 83690; 83735; 84484; 85025; 85610; 85730; 81003; 71046; J2270; J0780

== ENCOUNTER 2024-12-30 15:01 | Inpatient (IN) | payer MEDICARE ==
--- NOTE | 2024-12-30 15:32 | ED ---
General Adult HPI - General Chief complaint: Recheck/Abnormal Lab/Rx Stated complaint: hypertension Time Seen by Provider: 12/30/24 15:19 Source: patient, EMS Mode of arrival: EMS Limitations: no limitations - History of Present Illness Initial comments: 69-year-old female with past medical history of hypertension, hyperlipidemia who is noncompliant with her blood pressure medications who presents to the emergency department from Dr. Wilcox's office. Patient went in there for a normal follow-up. She had significantly elevated blood pressures. She does have a history of high blood pressure and has been on several medications for her high blood pressure however refuses to take them currently because they "make her feel lightheaded". She does admit to having a headache. Denies chest pain or shortness of breath. No nausea or vomiting. Denies visual changes. No abdominal pain. No numbness, tingling or weakness in her extremities. No other alleviating, precipitating or modifying factors - Related Data Home Medications Medication Instructions Recorded Confirmed Sertraline [Zoloft] 150 mg PO DAILY 12/23/22 12/30/24 Aspirin/Acetaminophen/Caffeine 3 tab PO BID 10/06/24 12/30/24 [Excedrin Extra Strength Caplet] Atorvastatin [Lipitor] 40 mg PO HS 10/06/24 12/30/24 Famotidine [Pepcid] 20 mg PO HS PRN 10/06/24 12/30/24 Albuterol Sulfate [Albuterol 2 puff INHALATION RT-Q4H PRN 11/04/24 12/30/24 Sulfate Hfa] Gabapentin [Neurontin] 200 mg PO BID 11/04/24 12/30/24 Melatonin [Melatonin ODT] 12 mg PO HS 11/04/24 12/30/24 Gabapentin [Neurontin] 300 mg PO DIRECTED 12/30/24 12/30/24 Previous Rx's Medication Instructions Recorded traZODone HCL 150 mg PO HS 30 Days tablet 04/17/22 Dicyclomine [Bentyl] 10 mg PO AC-TID #90 cap 10/08/24 Pantoprazole [Protonix] 40 mg PO DAILY #30 tab 10/08/24 Aspirin 81 mg PO DAILY #30 tab 11/08/24 Allergies Allergy/AdvReac Type Severity Reaction Status Date / Time hydralazine AdvReac TONGUE Verified 12/30/24 18:05 NUMBNESS ibuprofen AdvReac NIGHTMARES Verified 12/30/24 18:05 Iodinated Contrast Media AdvReac Nausea & Verified 12/30/24 18:05 [Iodinated Contrast Media - Vomiting IV Dye] povidone-iodine AdvReac Nausea & Verified 12/30/24 18:05 [From Betadine] Vomiting soap [From Betadine] AdvReac Nausea & Verified 12/30/24 18:05 Vomiting Review of Systems ROS Statement: Those systems with pertinent positive or pertinent negative responses have been documented in the HPI. ROS Other: All systems not noted in ROS Statement are negative. Past Medical History Past Medical History: Coronary Artery Disease (CAD), Chest Pain / Angina, COPD, Fibromyalgia, Hyperlipidemia, Hypertension, Osteoarthritis (OA) Additional Past Medical History / Comment(s): chronic back pain, DDD, bulging discs, scoliosis, osteoporosis, PAST HX JAW FX RT-CAUSES HEADACHES - TAKES TEGRETOL, abdominal aneurysm, colitis Last Myocardial Infarction Date:: 06/29/2020 History of Any Multi-Drug Resistant Organisms: None Reported Past Surgical History: Breast Surgery, Heart Catheterization With Stent, Hysterectomy, Orthopedic Surgery Additional Past Surgical History / Comment(s): Back injections, L patellar surgery, R carpal tunnel release, L breast benign biopsy, sinus surgery, EGD Past Anesthesia/Blood Transfusion Reactions: No Reported Reaction Date of Last Stent Placement:: 05/10/20 Past Psychological History: Anxiety, Depression Smoking Status: Current every day smoker Past Alcohol Use History: None Reported Past Drug Use History: None Reported - Past Family History Mother Family Medical History: Cancer Additional Family Medical History / Comment(s): Mother had lupus and TB Father History Unknown: Yes General Exam Limitations: no limitations General appearance: alert, in no apparent distress Head exam: Present: atraumatic, normocephalic, normal inspection Eye exam: Present: normal appearance, PERRL, EOMI. Absent: scleral icterus, conjunctival injection, periorbital swelling ENT exam: Present: normal exam, mucous membranes moist Neck exam: Present: normal inspection. Absent: tenderness, meningismus, lymphadenopathy Respiratory exam: Present: normal lung sounds bilaterally. Absent: respiratory distress, wheezes, rales, rhonchi, stridor Cardiovascular Exam: Present: regular rate, normal rhythm, normal heart sounds. Absent: systolic murmur, diastolic murmur, rubs, gallop, clicks GI/Abdominal exam: Present: soft, normal bowel sounds. Absent: distended, tenderness, guarding, rebound, rigid Extremities exam: Present: normal inspection, full ROM, normal capillary refill. Absent: tenderness, pedal edema, joint swelling, calf tenderness Back exam: Present: normal inspection Neurological exam: Present: alert, oriented X3, CN II-XII intact Psychiatric exam: Present: normal affect, normal mood Skin exam: Present: warm, dry, intact, normal color. Absent: rash Course Vital Signs 12/30/24 12/30/24 12/30/24 15:08 15:19 16:17 Temperature 98.1 F Pulse Rate 90 88 85 Respiratory 16 16 12 Rate Blood Pressure 243/142 226/138 210/123 O2 Sat by Pulse 96 95 95 Oximetry 12/30/24 12/30/24 12/30/24 17:17 18:28 19:00 Temperature Pulse Rate 74 75 73 Respiratory 16 18 14 Rate Blood Pressure 214/133 209/135 128/94 O2 Sat by Pulse 98 95 93 L Oximetry 12/30/24 12/30/24 20:36 20:37 Temperature Pulse Rate 75 74 Respiratory 20 14 Rate Blood Pressure 119/78 119/78 O2 Sat by Pulse 95 Oximetry Medical Decision Making - Medical Decision Making Was pt. sent in by a medical professional or institution (ELMIRA Tucker, PARENT AIDE, urgent care, hospital, or care home...) When possible be specific @ -Patient was sent in from Dr. Wilcox's office Did you speak to anyone other than the patient for history (EMS, parent, family, police, friend...)? What history was obtained from this source @ -No Did you review nursing and triage notes (agree or disagree)? Why? @ -I reviewed and agree with nursing and triage notes Were old charts reviewed (outside hosp., previous admission, EMS record, old EKG, old radiological studies, urgent care reports/EKG's, care home records)? Report findings @ -I reviewed the discharge summary from the patient's last hospitalization which demonstrated that she was hospitalized for accelerated hypertension Differential Diagnosis (chest pain, altered mental status, abdominal pain women, abdominal pain men, vaginal bleeding, weakness, fever, dyspnea, syncope, headache, dizziness, GI bleed, back pain, seizure, CVA, palpatations, mental health, musculoskeletal)? @ -Differential Headache: Migraine, tension, cluster, carbon monoxide, central venous thrombosis, pension karma temporal arteritis, acute closure glaucoma, intercranial hemorrhage, mastoiditis, sinusitis, head injury, this is not meant to be an all-inclusive list. EKG interpreted by me (3pts min.). @ -yes and demonstrates sinus rhythm with a rate of 83. [place] interval 116. QRS 92. QTc of 433. No acute ST segment elevations or depressions X-rays interpreted by me (1pt min.). @ -Yes which demonstrates no acute process CT interpreted by me (1pt min.). @ -yes which demonstrates no acute process U/S interpreted by me (1pt. min.). @ -None done What testing was considered but not performed or refused? (CT, X-rays, U/S, labs)? Why? @ -None What meds were considered but not given or refused? Why? @ -None Did you discuss the management of the patient with other professionals (professionals i.e. , PA, PARENT AIDE, lab, RT, psych nurse, director of social work, business objects, teacher, student officer, family service caseworker)? Give summary @ -spoke with dr sheet for admission Was smoking cessation discussed for >3mins.? @ -No Was critical care preformed (if so, how long)? @ -No Were there social determinants of health that impacted care today? How? (Homelessness, low income, unemployed, alcoholism, drug addiction, transportation, low edu. Level, literacy, decrease access to med. care, [facility], rehab)? @ -No Was there de-escalation of care discussed even if they declined (Discuss DNR or withdrawal of care, Hospice)? DNR status @ -No What co-morbidities impacted this encounter? (DM, HTN, Smoking, COPD, CAD, Cancer, CVA, ARF, Chemo, Hep., AIDS, mental health diagnosis, sleep apnea, morbid obesity)? @ -htn Was patient admitted / discharged? Hospital course, mention meds given and route, prescriptions, significant lab abnormalities, going to OR and other pertinent info. @ -Upon arrival patient seen and evaluated in bed 4. Thorough history and physical exam was performed. Patient is markedly hypertensive. She is complaining of a headache. She was given a dose of morphine for pain control and a dose of labetalol for her hypertension. Laboratory studies are conducted. Patient does go for CT which is within normal limits. Patient reevaluated and the first dose of pain and blood pressure medications has not touched the patient's blood pressure. I did give her a second dose of labetalol for which at this time there is a significant impact on her blood pressure. I did discuss the results of the testing with the patient. I feel as if she needs a cardiology and possibly nephrology consultation for her accelerated hypertension. Spoke with For the patient's admissionSheet Undiagnosed new problem with uncertain prognosis? @ -No Drug Therapy requiring intensive monitoring for toxicity (Heparin, Nitro, Insulin, Cardizem)? @ -No Were any procedures done? @ -No Diagnosis/symptom? @ -Accelerated hypertension, history of hypertension with noncompliance, cephalgia Acute, or Chronic, or Acute on Chronic? @ -Acute on chronic Uncomplicated (without systemic symptoms) or Complicated (systemic symptoms)? @ -Complicated Side effects of treatment? @ -No Exacerbation, Progression, or Severe Exacerbation? @ -No Poses a threat to life or bodily function? How? (Chest pain, [place], [place], pneumonia, PE, COPD, DKA, ARF, appy, cholecystitis, CVA, Diverticulitis, Homicidal, Suicidal, threat to staff... and all critical care pts) @ -yes with patient does present with markedly elevated blood pressures - Lab Data Result diagrams: 01/01/25 04:03 01/01/25 04:03 Lab Results 12/30/24 12/30/24 12/30/24 Range/Units 15:36 15:36 15:36 WBC 10.3 (3.8-10.6) k/uL RBC 4.23 (3.80-5.40) m/uL Hgb 12.1 (11.4-16.0) gm/dL Hct 37.1 (34.0-46.0) % MCV 87.8 (80.0-100.0) fL MCH 28.7 (25.0-35.0) pg MCHC 32.7 (31.0-37.0) g/dL RDW 15.9 H (11.5-15.5) % Plt Count 231 (150-450) k/uL MPV 7.7 Neutrophils % 66 % Lymphocytes % 27 % Monocytes % 4 % Eosinophils % 1 % Basophils % 0 % Neutrophils # 6.8 (1.3-7.7) k/uL Lymphocytes # 2.8 (1.0-4.8) k/uL Monocytes # 0.4 (0-1.0) k/uL Eosinophils # 0.1 (0-0.7) k/uL Basophils # 0.0 (0-0.2) k/uL Hypochromasia Slight PT 10.7 (10.0-12.5) sec INR 1.0 (<1.2) Sodium 142 (137-145) mmol/L Potassium 3.6 (3.5-5.1) mmol/L Chloride 106 (98-107) mmol/L Carbon Dioxide 23 (22-30) mmol/L Anion Gap 13 mmol/L BUN 18 H (7-17) mg/dL Creatinine 1.14 H (0.52-1.04) mg/dL Est GFR (CKD-EPI)AfAm 57 (>60 ml/min/1.73 sqM) Est GFR (CKD-EPI)NonAf 49 (>60 ml/min/1.73 sqM) Glucose 103 H (74-99) mg/dL Calcium 9.4 (8.4-10.2) mg/dL Total Bilirubin 0.4 (0.2-1.3) mg/dL AST 24 (14-36) U/L ALT 9 (4-34) U/L Alkaline Phosphatase 87 (38-126) U/L Troponin I (0.000-0.034) ng/mL Total Protein 7.0 (6.3-8.2) g/dL Albumin 4.2 (3.5-5.0) g/dL 12/30/24 Range/Units 15:36 WBC (3.8-10.6) k/uL RBC (3.80-5.40) m/uL Hgb (11.4-16.0) gm/dL Hct (34.0-46.0) % MCV (80.0-100.0) fL MCH (25.0-35.0) pg MCHC (31.0-37.0) g/dL RDW (11.5-15.5) % Plt Count (150-450) k/uL MPV Neutrophils % % Lymphocytes % % Monocytes % % Eosinophils % % Basophils % % Neutrophils # (1.3-7.7) k/uL Lymphocytes # (1.0-4.8) k/uL Monocytes # (0-1.0) k/uL Eosinophils # (0-0.7) k/uL Basophils # (0-0.2) k/uL Hypochromasia PT (10.0-12.5) sec INR (<1.2) Sodium (137-145) mmol/L Potassium (3.5-5.1) mmol/L Chloride (98-107) mmol/L Carbon Dioxide (22-30) mmol/L Anion Gap mmol/L BUN (7-17) mg/dL Creatinine (0.52-1.04) mg/dL Est GFR (CKD-EPI)AfAm (>60 ml/min/1.73 sqM) Est GFR (CKD-EPI)NonAf (>60 ml/min/1.73 sqM) Glucose (74-99) mg/dL Calcium (8.4-10.2) mg/dL Total Bilirubin (0.2-1.3) mg/dL AST (14-36) U/L ALT (4-34) U/L Alkaline Phosphatase (38-126) U/L Troponin I <0.012 (0.000-0.034) ng/mL Total Protein (6.3-8.2) g/dL Albumin (3.5-5.0) g/dL Disposition Clinical Impression: Hypertensive urgency, Headache Disposition: ADMITTED IP TO THIS [facility] Condition: Stable Is patient prescribed a controlled substance at d/c from ED?: No Time of Disposition: 18:27 Decision to Admit Reason: Admit from EC Decision Date: 12/30/24 Decision Time: 18:27
[2024-12-30] MEDS: ONDANSETRON 4 MG/2 ML VIAL IVP STA (15:44)
[2024-12-30] MEDS: MORPHINE SULFATE 4 MG/ML SYRINGE IVP STA (15:44)
[2024-12-30 15:54] LABS: Basophils % (A) 0 %; Eosinophils # (A) 0.1 k/uL (0-0.7); Eosinophils % (A) 1 %; HCT 37.1 % (34.0-46.0); HGB 12.1 gm/dL (11.4-16.0); Hypochromasia Slight; Lymphocytes # (A) 2.8 k/uL (1.0-4.8); Lymphocytes % (A) 27 %; MCH 28.7 pg (25.0-35.0); MCHC 32.7 g/dL (31.0-37.0); MCV 87.8 fL (80.0-100.0); Mean Platelet Volume 7.7; Monocytes # (A) 0.4 k/uL (0-1.0); Monocytes % (A) 4 %; Neutrophils # (A) 6.8 k/uL (1.3-7.7); Neutrophils % (A) 66 %; Platelet Count 231 k/uL (150-450); RBC 4.23 m/uL (3.80-5.40); RDW 15.9 % (11.5-15.5); WBC 10.3 k/uL (3.8-10.6)
[2024-12-30 16:10] LABS: Prothrombin Time 10.7 sec (10.0-12.5)
[2024-12-30 16:11] LABS: ALT 9 U/L (4-34); AST 24 U/L (14-36); African American GFR (CKD) 57 (>60 ml/min/1.73 sqM); Albumin 4.2 g/dL (3.5-5.0); Alkaline Phosphatase 87 U/L (38-126); Anion Gap 13 mmol/L; Blood Urea Nitrogen 18 mg/dL (7-17); Calcium 9.4 mg/dL (8.4-10.2); Carbon Dioxide 23 mmol/L (22-30); Chloride 106 mmol/L (98-107); Glucose 103 mg/dL (74-99); Non-African American GFR(CKD) 49 (>60 ml/min/1.73 sqM); Potassium 3.6 mmol/L (3.5-5.1); Sodium 142 mmol/L (137-145); Total Bilirubin 0.4 mg/dL (0.2-1.3)
--- NOTE | 2024-12-30 16:12 | CT ---
EXAMINATION TYPE: CT brain wo con DATE OF EXAM: 12/30/2024 COMPARISON: 11/04/2024 CLINICAL INDICATION: Female, 69 years old with history of Headache; PHH, BARRE[facility]. CT DLP: 1082.4 mGycm Automated exposure control for dose reduction was used. Findings: The ventricles, basal cisterns and sulci over the convexities are mildly enlarged but within normal l imits for the patient's age and there is no mass effect or shift of midline structures. There is moderate decreased density in the periventricular white matter consistent with moderate small products ii assembler yariel ischemic white matter demyelination. There is no acute intra or extra-axial hemorrhage. The posterior fossa including the brainstem, fourth ventricle and cerebellar pontine angles appear no rmal. Intraorbital contents appear normal and symmetric. Visualized paranasal sinuses and mastoid air cells are well aerated. The calvarium is intact. IMPRESSION: 1. No acute bleed or mass effect. 2. Mild age-appropriate atrophy and moderate chronic ischemic white matter demyelination. 3. no significant interval change. [facility], , 12/30/2024 4:10 PM
[2024-12-30] MEDS: LABETALOL 5 MG/ML VIAL MDV IVP STA ×2 (16:38→18:37)
[2024-12-30] MEDS ORDERED: NALOXONE 0.4 MG/ML 1 ML VIAL IV PRN (18:27)
[2024-12-30] MEDS: HYDROmorphone 1 MG/ML 1 ML SYRINGE IVP STA (18:27)
[2024-12-30] MEDS: SODIUM CHLORIDE 0.9% 1,000 ML IV ONE (20:45)
[2024-12-30] MEDS ORDERED: FAMOTIDINE 20 MG TAB PO PRN (21:52)
[2024-12-30] MEDS: SODIUM CHLORIDE 0.9% 1,000 ML IV SCH (22:15)
[2024-12-30] MEDS: carvediloL 6.25 MG TAB PO SCH (22:17)
[2024-12-30] MEDS: HYDROmorphone 0.5 MG/0.5 ML SYRINGE IVP STA (22:17)
[2024-12-30] MEDS: amLODIPine 5 MG TAB PO SCH (22:17)
[2024-12-30] MEDS: GABAPENTIN 300 MG CAP PO SCH (23:28)
[2024-12-31] MEDS: ASPIRIN-ACET-CAFF 250-250-65MG 1 EACH TAB PO PRN (04:27)
[2024-12-31] MEDS: DICYCLOMINE 10 MG CAP PO SCH (05:46)
[2024-12-31 08:26] LABS: BUN/Creat Ratio 12.73 Ratio (12.00-20.00); Calcium 8.6 mg/dL (8.7-10.3); Carbon Dioxide 25.7 mmol/L (21.6-31.8); Chloride 102 mmol/L (96-109); Glucose 88 mg/dL (70-110); Potassium 3.8 mmol/L (3.5-5.5); Sodium 139 mmol/L (135-145)
[2024-12-31] MEDS: ASPIRIN 81 MG PO SCH (08:27)
[2024-12-31] MEDS: GABAPENTIN 100 MG CAP PO SCH (08:27)
[2024-12-31 08:45] LABS: Basophils # (A) 0.05 X 10*3/uL (0.00-0.10); Basophils % (A) 0.5 %; Eosinophils # (A) 0.11 X 10*3/uL (0.04-0.35); Eosinophils % (A) 1.1 %; HCT 32.6 % (37.2-46.3); HGB 10.2 g/dL (12.0-15.0); Lymphocytes # (A) 3.09 X 10*3/uL (0.90-5.00); Lymphocytes % (A) 30.7 %; MCH 28.2 pg (27.0-32.0); MCHC 31.3 g/dL (32.0-37.0); MCV 90.1 FL (80.0-97.0); Mean Platelet Volume 10.8 FL (9.5-12.2); Monocytes # (A) 0.83 X 10*3/uL (0.20-1.00); Monocytes % (A) 8.2 %; NRBC Per 100 WBC 0 X 10*3/uL (0.00-0.01); Neutrophils # (A) 5.96 X 10*3/uL (1.80-7.70); Neutrophils % (A) 59.2 %; Platelet Count 228 X 10*3/uL (140-440); RBC 3.62 X 10*6/uL (4.10-5.20); RDW 16.2 % (11.5-14.5); WBC 10.07 X 10*3/uL (4.50-10.00)
[2024-12-31] MEDS: amLODIPine 5 MG TAB PO SCH (08:48)
[2024-12-31] MEDS: ACETAMINOPHEN TAB 325 MG TAB PO PRN (08:48)
[2024-12-31] MEDS ORDERED: HYDROmorphone 0.5 MG/0.5 ML SYRINGE IVP PRN (11:15)
[2024-12-31] MEDS: HYDROmorphone 0.5 MG/0.5 ML SYRINGE IVP PRN (11:51)
[2024-12-31] MEDS: NICOTINE 21MG/24HR PATCH TRANSDERM SCH (14:36)
[2024-12-31] MEDS: ATORVASTATIN 40 MG TAB PO SCH (20:27)
--- NOTE | 2024-12-31 22:49 | HP ---
HISTORY AND PHYSICAL CHIEF COMPLAINT: Headache and assess hypertensive urgency. HISTORY OF PRESENT ILLNESS: This 69-year-old woman with a past medical history of multiple medical problems including hypertension, who was referred from Dr. Causey's office with a headache and accelerated hypertension with systolic blood pressure more than 215. The patient was given multiple medications. Interestingly, in September also, the patient had another admission for accelerated hypertension with blood pressure more than 235 systolic. On evaluation of the chart, I found that the patient had superior and infrarenal aortic aneurysm and there is significant clot burden in 1 of the aortic aneurysms, and the CT scan done at that time showed significant atrophy of the right kidney, and there appears to be some sort of vascular compromise involving the right renal artery at this time, which could very will be causing the hypertensive urgency. There is no history of any fever, rigors, chills. The repeated presentation, so far, of the patient who has accelerated hypertension is extremely dangerous situation. At this time, I have recommended extensive evaluation for this patient. We will start with ruling out the secondary hypertension with urine catecholamines and metanephrines and as well as a plasma metanephrine fractionation. I would also recommend serum cortisol and urinary free cortisol evaluation also, plasma aldosterone renin activity ratio and absolute values also will be checked. I would also recommend ultrasound of the renal arteries to rule out any stenosis. As a 2nd step, I would recommend CT angio and aortic runoff including the evaluation of the renal arteries as well. Once again, prognosis is guarded. Further recommendations to follow. See orders for further details. MMODL / IJN: [id number] /
[2024-12-31] MEDS: MELATONIN 5 MG TABLET PO PRN (23:12)
--- NOTE | 2025-01-01 00:55 | HP ---
HISTORY AND PHYSICAL CHIEF COMPLAINT: Hypertension. HISTORY OF PRESENT ILLNESS: This 69-year-old woman with a past medical history of multiple medical problems including hypertension, was recently admitted to [facility] with hypertensive urgency. The patient went home. Currently, the patient complains of severe headache and was noted blood pressure more than 200 and the patient was admitted for further evaluation and treatment. There is no history of any fever, rigors, chills at this time. The patient has abdominal, pelvis CAT scan in September, showed stable abdominal aortic aneurysm and stable moderate right renal atrophy. Moderate mural thrombus was also noted. PAST MEDICAL HISTORY: Reviewed and includes CAD, COPD, fibromyalgia, hypertension. The rest of the history and rest of the chart is also reviewed. HOME MEDICATIONS: Reviewed and include trazodone . Dose and rest of medications reviewed. ALLERGIES: NTD FAMILY HISTORY: History of cancer, lupus, and TB. SOCIAL HISTORY: Smoking. REVIEW OF SYSTEMS: Fourteen-point review of systems negative except as mentioned earlier. PHYSICAL EXAMINATION: VITAL SIGNS: Pulse is 73, blood pressure 152/81, and respirations 17. HEENT: Conjunctivae normal. NECK: No JVD. CARDIOVASCULAR: S1, S2. RESPIRATIONS: Breath sounds diminished at the bases. A few scattered rhonchi. ABDOMEN: Soft. NERVOUS SYSTEM: Nonfocal. SKIN: No ulcer, rash, bleeding. JOINTS: No active deforming arthropathy. LABORATORY DATA: Noted. ASSESSMENT: 1. Recurrent hypertensive urgency. 2. Symptomatic headaches. 3. Marked right renal atrophy, rule out right renal artery stenosis. 4. Infrarenal abdominal aortic aneurysm with moderate mural thrombus and suprarenal abdominal aortic aneurysm 3.2 cm. 5. Coronary artery disease. 6. Chronic obstructive pulmonary disease. 7. Fibromyalgia. 8. Hypertension. 9. Hyperlipidemia. RECOMMENDATIONS AND DISCUSSION: This 69-year-old woman presented with multiple complex medical issues. Monitor the patient closely. I would recommend continue the current medications, symptomatic treatment. Monitor blood pressure closely. Nephrology consultation. Prognosis extremely guarded because of multiple complex medical issues and I would recommend further evaluation including renal workup. Recommend ultrasound of the renal arteries and continue to monitor. Guarded prognosis. Further recommendations to follow. MMODL / IJN: [id number] / MTDD
--- NOTE | 2025-01-01 08:48 | US ---
EXAMINATION TYPE: US renal artery duplex complet DATE OF EXAM: 01/01/2025 COMPARISON: CT 10/06/2024 CLINICAL INDICATION: Female, 69 years old with history of hypertensive urgency; 10/10 headaches. Molly ent stated during test "feels like my head is going to explode, it's unbearable" TECHNIQUE: Grayscale, color Doppler and spectral Doppler imaging of the bilateral renal arteries and kidneys. 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 Grayscale imaging of the kidneys and show no evidence for hydronephrosis or mass. No renal calculi or cysts visualized. IMPRESSION: 1. Mild elevation of the resistive index bilateral kidneys. 2. Ratios of renal artery velocities remain within the normal range. 3. Fusiform prominence of the abdominal aorta with the greatest AP dimension measuring 3.4 cm. [facility], , 01/01/2025 8:45 AM
[2025-01-01 09:26] LABS: Basophils # (A) 0.04 X 10*3/uL (0.00-0.10); Basophils % (A) 0.5 %; Eosinophils # (A) 0.18 X 10*3/uL (0.04-0.35); Eosinophils % (A) 2.2 %; HCT 34.1 % (37.2-46.3); HGB 10.6 g/dL (12.0-15.0); Lymphocytes # (A) 2.89 X 10*3/uL (0.90-5.00); Lymphocytes % (A) 34.7 %; MCHC 31.1 g/dL (32.0-37.0); Mean Platelet Volume 10.9 FL (9.5-12.2); Monocytes % (A) 8.4 %; NRBC Per 100 WBC 0 X 10*3/uL (0.00-0.01); Neutrophils # (A) 4.48 X 10*3/uL (1.80-7.70); Neutrophils % (A) 53.8 %; Platelet Count 273 X 10*3/uL (140-440); RBC 3.92 X 10*6/uL (4.10-5.20); RDW 16.2 % (11.5-14.5); WBC 8.32 X 10*3/uL (4.50-10.00)
[2025-01-01 09:46] LABS: BUN/Creat Ratio 19.12 Ratio (12.00-20.00); Blood Urea Nitrogen 15.3 mg/dL (9.0-27.0); Glucose 103 mg/dL (70-110)
[2025-01-01 09:47] LABS: ALT 14 U/L (8-44); AST 26 U/L (13-35); Albumin/Globulin Ratio 1.67 Ratio (1.60-3.17); Alkaline Phosphatase 109 U/L (41-126); Calcium 9.1 mg/dL (8.7-10.3); Carbon Dioxide 27.4 mmol/L (21.6-31.8); Chloride 103 mmol/L (96-109); Globulin 2.4 g/dL (1.6-3.3); Potassium 3.7 mmol/L (3.5-5.5); Sodium 141 mmol/L (135-145); Total Bilirubin <0.2 mg/dL (0.3-1.2); Total Protein 6.4 g/dL (6.2-8.2)
--- NOTE | 2025-01-01 09:57 | P.NPCON ---
History of Present Illness - Reason for Consult accelerated hypertension - History of Present Illness Reason for consultation: Hypertension History of present illness: Patient is a 69-year-old female seen in renal consultation for hypertensive urgency. Patient was at her PCPs office and was told to go to the hospital due to high blood pressure. Patient was complaining of headaches. Patient states she has not taken her home blood pressure medications for over a month now. Patient states she was having lightheadedness and weakness and therefore stopped all her medications. Blood pressure this admission was 243/142. It is also been as low as 119/78. Patient complains of generalized pain. Denies any vision changes. No chest pain or shortness of breath. Has been voiding. Denies gross hematuria or dysuria. She was started on amlodipine and Coreg this admission. GFR at baseline. Vital signs are stable. General: No acute distress. HEENT: Head exam is unremarkable. LUNGS: No audible rhonchi or wheezes. HEART: Rate and Rhythm are regular. ABDOMEN: Nontender. EXTREMITITES: No edema. Past Medical History Past Medical History: Coronary Artery Disease (CAD), Chest Pain / Angina, COPD, Fibromyalgia, Hyperlipidemia, Hypertension, Osteoarthritis (OA) Additional Past Medical History / Comment(s): chronic back pain, DDD, bulging discs, scoliosis, osteoporosis, PAST HX JAW FX RT-CAUSES HEADACHES - TAKES TEGRETOL, abdominal aneurysm, colitis Last Myocardial Infarction Date:: 06/29/2020 History of Any Multi-Drug Resistant Organisms: None Reported Past Surgical History: Breast Surgery, Heart Catheterization With Stent, Hysterectomy, Orthopedic Surgery Additional Past Surgical History / Comment(s): Back injections, L patellar surgery, R carpal tunnel release, L breast benign biopsy, sinus surgery, EGD Past Anesthesia/Blood Transfusion Reactions: No Reported Reaction Date of Last Stent Placement:: 05/10/20 Past Psychological History: Anxiety, Depression Additional Psychological History / Comment(s): Pt resides with her daughter. She uses no assistive device. She does not drive, her daughters or public transportation take her to appointments. She manages her own medication. Smoking Status: Current every day smoker Past Alcohol Use History: None Reported Additional Past Alcohol Use History / Comment(s): Pt started smoking in 1967 and is a 1.5 ppd smoker. Past Drug Use History: None Reported Additional Drug Use History / Comment(s): no additional drug use stated by patient at this time - Past Family History Mother Family Medical History: Cancer Additional Family Medical History / Comment(s): Mother had lupus and TB Father History Unknown: Yes Medications and Allergies Home Medications Medication Instructions Recorded Confirmed Type traZODone HCL 150 mg PO HS 30 Days tablet 04/17/22 12/30/24 Rx Sertraline [Zoloft] 150 mg PO DAILY 12/23/22 12/30/24 History Aspirin/Acetaminophen/Caffeine 3 tab PO BID 10/06/24 12/30/24 History [Excedrin Extra Strength Caplet] Atorvastatin [Lipitor] 40 mg PO HS 10/06/24 12/30/24 History Famotidine [Pepcid] 20 mg PO HS PRN 10/06/24 12/30/24 History Dicyclomine [Bentyl] 10 mg PO AC-TID #90 cap 10/08/24 12/30/24 Rx Pantoprazole [Protonix] 40 mg PO DAILY #30 tab 10/08/24 12/30/24 Rx Albuterol Sulfate [Albuterol 2 puff INHALATION RT-Q4H PRN 11/04/24 12/30/24 His tory Sulfate Hfa] Gabapentin [Neurontin] 200 mg PO BID 11/04/24 12/30/24 History Melatonin [Melatonin ODT] 12 mg PO HS 11/04/24 12/30/24 History Aspirin 81 mg PO DAILY #30 tab 11/08/24 12/30/24 Rx Gabapentin [Neurontin] 300 mg PO DIRECTED 12/30/24 12/30/24 History Allergies Allergy/AdvReac Type Severity Reaction Status Date / Time hydralazine AdvReac TONGUE Verified 12/30/24 18:05 NUMBNESS ibuprofen AdvReac NIGHTMARES Verified 12/30/24 18:05 Iodinated Contrast Media AdvReac Nausea & Verified 12/30/24 18:05 [Iodinated Contrast Media - Vomiting IV Dye] povidone-iodine AdvReac Nausea & Verified 12/30/24 18:05 [From Betadine] Vomiting soap [From Betadine] AdvReac Nausea & Verified 12/30/24 18:05 Vomiting Physical Exam Vitals: Vital Signs Temp Pulse Resp BP Pulse Ox 01/01/25 09:40 152/87 01/01/25 07:00 98.8 F 86 15 198/121 95 01/01/25 01:00 98 F 77 16 166/87 93 L 12/31/24 18:45 98.9 F 87 18 179/90 93 L 12/31/24 14:52 98.1 F 73 16 153/77 92 L 12/31/24 14:00 16 12/31/24 10:30 151/68 Intake and Output 12/31/24 01/01/25 01/01/25 22:59 06:59 14:59 Output Total 300 Balance -300 Output: Urine 300 Other: Voiding Method Toilet # Voids 2 4 Results - Lab Results Most recent lab results Calcium 9.1 mg/dL (8.7-10.3) 01/01/25 04:03 01/01/25 04:03 01/01/25 04:03 Assessment and Plan Plan: Assessment: 1. Hypertensive urgency. Due to noncompliance with blood pressure meds. Renal duplex ultrasound showed atrophic right kidney. 2. Mild acute kidney injury secondary to vasomotor nephropathy secondary to hemodynamic instability. Improved. 3. 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 4. Coronary artery disease with cardiac stent. Plan: Maintain amlodipine and Coreg. Add losartan. Allergic to hydralazine Pain control. Secondary workup for hypertension pending. Thank you for the consultation. I will continue to follow the patient with you during her hospital stay.
[2025-01-01] MEDS: LOSARTAN 25 MG TAB PO SCH (10:22)
[2025-01-01] MEDS: ALBUTEROL NEBULIZED 2.5 MG/3 ML INHALATION PRN (11:49)
--- NOTE | 2025-01-01 16:21 | P.CRDCN ---
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 She is known to Dr. Diaz This time she presented to the hospital because of some substernal chest heaviness along with uncontrolled blood pressure. On presentation she had sy mptoms of headache. Patient reports that she was feeling weak and stopped taking her medications a month ago. She was hospitalized in 10/2024 with very similar presentation. In October she was discharged home on aspirin, losartan 50, HCTZ 12.5, Imdur 30, metoprolol succinate 25 mg daily, Lipitor 40 mg daily Admission Vitals: [ ] Admission Labs: [ ] Admission EKG: [ ] Imaging: [ ] Prior cardiac testing: Echo from October 2024 EF 60%, no obvious RWMA, no significant valvular dysfunction Aortic CT from July 2024 shows infrarenal aortic aneurysm 3.5 cm, moderate atherosclerosis at aortic bifurcation with 9 mm focal dissection of right external [place] artery, high-grade stenosis of right renal artery REVIEW OF SYSTEMS: 14 point review of system is negative except what is mentioned above in HPI. PHYSICAL EXAMINATION: Neck: Brisk carotid upstroke, no jugular venous distention. Lungs: Clear to auscultation. Heart: Regular rate and rhythm, S1-S2, , no murmur or rub. Abdomen: Soft nontender, positive bowel sounds. Extremities: No edema, intact distal pulses. Neuro: Alert, oritented, no focal deficits. Detailed neuro exam was not performed. ASSESSMENT: # Essential hypertension, poorly controlled # Substernal chest pressure, likely due to above. 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 Patient was counseled for smoking cessation however she has explicitly told me that she would not quit Recommend outpatient Xarelto 2.5 g twice daily for PAD Darion Blanco MD, FAC, RPVI Thank you for allowing [facility] to participate in this patient's care. Feel free to reach out in case of any followup questions. Past Medical History Past Medical History: Coronary Artery Disease (CAD), Chest Pain / Angina, COPD, Fibromyalgia, Hyperlipidemia, Hypertension, Osteoarthritis (OA) Additional Past Medical History / Comment(s): chronic back pain, DDD, bulging discs, scoliosis, osteoporosis, PAST HX JAW FX RT-CAUSES HEADACHES - TAKES TEGRETOL, abdominal aneurysm, colitis Last Myocardial Infarction Date:: 06/29/2020 History of Any Multi-Drug Resistant Organisms: None Reported Past Surgical History: Breast Surgery, Heart Catheterization With Stent, Hysterectomy, Orthopedic Surgery Additional Past Surgical History / Comment(s): Back injections, L patellar surgery, R carpal tunnel release, L breast benign biopsy, sinus surgery, EGD Past Anesthesia/Blood Transfusion Reactions: No Reported Reaction Date of Last Stent Placement:: 05/10/20 Past Psychological History: Anxiety, Depression Smoking Status: Current every day smoker Past Alcohol Use History: None Reported Past Drug Use History: None Reported - Past Family History Mother Family Medical History: Cancer Additional Family Medical History / Comment(s): Mother had lupus and TB Father History Unknown: Yes Medications and Allergies Home Medications Medication Instructions Recorded Confirmed Type traZODone HCL 150 mg PO HS 30 Days tablet 04/17/22 12/30/24 Rx Sertraline [Zoloft] 150 mg PO DAILY 12/23/22 12/30/24 History Aspirin/Acetaminophen/Caffeine 3 tab PO BID 10/06/24 12/30/24 History [Excedrin Extra Strength Caplet] Atorvastatin [Lipitor] 40 mg PO HS 10/06/24 12/30/24 History Famotidine [Pepcid] 20 mg PO HS PRN 10/06/24 12/30/24 History Dicyclomine [Bentyl] 10 mg PO AC-TID #90 cap 10/08/24 12/30/24 Rx Pantoprazole [Protonix] 40 mg PO DAILY #30 tab 10/08/24 12/30/24 Rx Albuterol Sulfate [Albuterol 2 puff INHALATION RT-Q4H PRN 11/04/24 12/30/24 History Sulfate Hfa] Gabapentin [Neurontin] 200 mg PO BID 11/04/24 12/30/24 History Melatonin [Melatonin ODT] 12 mg PO HS 11/04/24 12/30/24 History Aspirin 81 mg PO DAILY #30 tab 11/08/24 12/30/24 Rx Gabapentin [Neurontin] 300 mg PO DIRECTED 12/30/24 12/30/24 History Allergies Allergy/AdvReac Type Severity Reaction Status Date / Time hydralazine AdvReac TONGUE Verified 12/30/24 18:05 NUMBNESS ibuprofen AdvReac NIGHTMARES Verified 12/30/24 18:05 Iodinated Contrast Media AdvReac Nausea & Verified 12/30/24 18:05 [Iodinated Contrast Media - Vomiting IV Dye] povidone-iodine AdvReac Nausea & Verified 12/30/24 18:05 [From Betadine] Vomiting soap [From Betadine] AdvReac Nausea & Verified 12/30/24 18:05 Vomiting Physical Exam Vitals: Vital Signs Temp Pulse Pulse Resp BP Pulse Ox 01/01/25 15:00 97.7 F 77 16 149/81 93 L 01/01/25 12:01 70 01/01/25 11:49 68 01/01/25 09:40 152/87 01/01/25 07:59 15 01/01/25 07:00 98.8 F 86 15 198/121 95 01/01/25 01:00 98 F 77 16 166/87 93 L 12/31/24 18:45 98.9 F 87 18 179/90 93 L Intake and Output 01/01/25 01/01/25 01/01/25 06:59 14:59 22:59 Intake Total 342 Balance 342 Intake: Oral 342 Other: Voiding Method Toilet # Voids 4 Results 01/01/25 04:03 01/01/25 04:03 Cardiac Enzymes 01/01/25 Range/Units 04:03 AST 26 (13-35) U/L CBC 01/01/25 Range/Units 04:03 WBC 8.32 (4.50-10.00) X 10*3/uL RBC 3.92 L (4.10-5.20) X 10*6/uL Hgb 10.6 L (12.0-15.0) g/dL Hct 34.1 L (37.2-46.3) % Plt Count 273 (140-440) X 10*3/uL Comprehensive Metabolic Panel 01/01/25 Range/Units 04:03 Sodium 141 (135-145) mmol/L Potassium 3.7 (3.5-5.5) mmol/L Chloride 103 (96-109) mmol/L Carbon Dioxide 27.4 (21.6-31.8) mmol/L BUN 15.3 (9.0-27.0) mg/dL Creatinine 0.8 (0.6-1.5) mg/dL Glucose 103 (70-110) mg/dL Calcium 9.1 (8.7-10.3) mg/dL AST 26 (13-35) U/L ALT 14 (8-44) U/L Alkaline Phosphatase 109 (41-126) U/L Total Protein 6.4 (6.2-8.2) g/dL Albumin 4.0 (3.8-4.9) g/dL Current Medications Generic Name Dose Route Start Last Admin Trade Name Freq PRN Reason Stop Dose Admin Acetaminophen 650 mg 12/31/24 08:43 12/31/24 18:28 Acetaminophen Tab 325 Mg Tab PO 650 mg Q6HR PRN Administration Fever and/ or Mild Pain (1-3) Acetaminophen/Aspirin/Caffeine 3 each 12/30/24 22:08 01/01/25 09:37 [id number] 1 Each Tab PO 3 each BID PRN Administration HEADACE Acetaminophen/Codeine Phosphate 1 each 12/31/24 11:16 Acetaminophen-Codeine 300-30mg Tab PO Q6HR PRN Moderate Pain (Scale 4 to 6) Albuterol Sulfate 2.5 mg 12/30/24 21:52 01/01/25 11:49 Albuterol Nebulized 2.5 Mg/3 Ml INHALATION 2.5 mg RT-Q4H PRN Administration Shortness Of Breath Amlodipine Besylate 5 mg 01/02/25 09:00 Amlodipine 5 Mg Tab PO DAILY JAKE Aspirin 81 mg 12/31/24 09:00 01/01/25 07:59 Aspirin 81 Mg PO 81 mg DAILY JAKE Administration Atorvastatin Calcium 40 mg 12/31/24 21:00 12/31/24 20:27 Atorvastatin 40 Mg Tab PO 40 mg HS JAKE Administration Carvedilol 6.25 mg 12/30/24 22:00 01/01/25 08:14 Carvedilol 6.25 Mg Tab PO 6.25 mg BID-W/MEALS JAKE Administration Dicyclomine HCl 10 mg 12/31/24 07:30 01/01/25 13:20 Dicyclomine 10 Mg Cap PO 10 mg AC-TID JAKE Administration Famotidine 20 mg 12/30/24 21:52 Famotidine 20 Mg Tab PO HS PRN GI Upset Gabapentin 200 mg 12/31/24 09:00 01/01/25 07:59 Gabapentin 100 Mg Cap PO 200 mg BID JAKE Administration Hydromorphone HCl 0.5 mg 12/31/24 11:49 01/01/25 10:22 Hydromorphone 0.5 Mg/0.5 Ml Syringe IVP 0.5 mg Q6HR PRN Administration Severe Pain (Scale 7 to 10) Losartan Potassium 50 mg 01/02/25 09:00 Losartan 25 Mg Tab PO DAILY JAKE Losartan Potassium 25 mg 01/01/25 16:19 Losartan 25 Mg Tab PO 01/01/25 16:20 ONCE STA Melatonin 10 mg 12/30/24 21:52 12/31/24 23:12 Melatonin 5 Mg Tablet PO 10 mg HS PRN Administration Insomnia Naloxone HCl 0.2 mg 12/30/24 18:27 Naloxone 0.4 Mg/Ml 1 Ml Vial IV Q2M PRN Opioid Reversal Nicotine 1 patch 12/31/24 14:30 01/01/25 07:59 Nicotine 21mg/24hr Patch TRANSDERM 1 patch DAILY JAKE Administration Intake and Output 01/01/25 01/01/25 01/01/25 06:59 14:59 22:59 Intake Total 342 Balance 342 Intake: Oral 342 Other: Voiding Method Toilet # Voids 4 01/01/25 04:03 01/01/25 04:03
[2025-01-01] MEDS: LOSARTAN 25 MG TAB PO STA (16:41)
[2025-01-01] MEDS ORDERED: methylPREDNISolone SOD SUCCI 125 MG/2 ML VIAL IV PRN (17:09)
[2025-01-01 17:19] LABS: NT-Pro-B-Type Natriuretic Pept 2440 pg/mL
[2025-01-01] MEDS: cloNIDine HCL 0.1 MG TAB PO PRN (17:53)
[2025-01-01] MEDS: carvediloL 12.5 MG TAB PO SCH (17:55)
[2025-01-01] MEDS: methylPREDNISolone SOD SUCCI 125 MG/2 ML VIAL IV PRN (20:04)
[2025-01-01] MEDS: traZODone HCL 50 MG TAB PO SCH (20:04)
[2025-01-01] MEDS: Acetaminophen-Codeine 300-30mg TAB PO PRN (20:38)
[2025-01-02] MEDS ORDERED: methylPREDNISolone SOD SUCCI 125 MG/2 ML VIAL IV SCH
--- NOTE | 2025-01-02 04:30 | PN ---
PROGRESS NOTE DATE OF SERVICE: 01/01/2025 SUBJECTIVE: This is a 69-year-old woman, who was admitted with recurrent hypertensive urgency, being closely monitored. The patient has atrophic kidney on the right side and multiple vascular abnormalities. Also the hormonal testing is pending at this time. Serum cortisols 4.3 in the afternoon. PAST MEDICAL HISTORY: Reviewed. REVIEW OF SYSTEMS: Fourteen-point review of systems negative except as mentioned earlier. CURRENT MEDICATIONS: Reviewed. PHYSICAL EXAMINATION: VITAL SIGNS: Pulse is 77, blood pressure 149/81, respirations 16. HEENT: Conjunctivae normal. CARDIOVASCULAR: S1, S2. RESPIRATION: Breath sounds diminished at the bases. A few scattered rhonchi. ABDOMEN: Soft. NERVOUS SYSTEM: Nonfocal. LABORATORY DATA: Reviewed. ASSESSMENT: 1. Recurrent hypertensive urgency. 2. Symptomatic headaches. 3. Marked right renal atrophy, possibly secondary from vascular etiology. 4. Infrarenal abdominal aortic aneurysm with moderate amount of e mural thrombus and suprarenal abdominal aortic aneurysm at 3.2 cm, clot mostly on the right side. 5. Coronary artery disease. 6. Chronic obstructive pulmonary disease. 7. Fibromyalgia. 8. Hypertension. 9. Hyperlipidemia. RECOMMENDATIONS: Recommended to continue with current management, continue symptomatic treatment. Otherwise, recommended renal angiography as well as CTA with the static runoff. Guarded prognosis. Further recommendations to follow. MMODL / IJN: [id number] /
[2025-01-02 08:30] LABS: Anisocytosis Slight; Basophils % (A) 0 %; Eosinophils % (A) 0 %; HCT 42.9 % (34.0-46.0); HGB 12.8 gm/dL (11.4-16.0); Hypochromasia Slight; Lymphocytes # (A) 0.9 k/uL (1.0-4.8); Lymphocytes % (A) 22 %; MCH 26.8 pg (25.0-35.0); MCHC 29.8 g/dL (31.0-37.0); MCV 89.8 fL (80.0-100.0); Mean Platelet Volume 8.2; Monocytes % (A) 1 %; Neutrophils # (A) 2.9 k/uL (1.3-7.7); Neutrophils % (A) 75 %; Platelet Count 279 k/uL (150-450); RBC 4.78 m/uL (3.80-5.40); RDW 16.1 % (11.5-15.5); WBC 3.9 k/uL (3.8-10.6)
[2025-01-02 08:50] LABS: African American GFR (CKD) 53 (>60 ml/min/1.73 sqM); Anion Gap 12 mmol/L; Blood Urea Nitrogen 33 mg/dL (7-17); Carbon Dioxide 24 mmol/L (22-30); Chloride 95 mmol/L (98-107); Glucose 222 mg/dL (74-99); Non-African American GFR(CKD) 46 (>60 ml/min/1.73 sqM); Potassium 3.7 mmol/L (3.5-5.1); Sodium 131 mmol/L (137-145)
[2025-01-02] MEDS: PANTOPRAZOLE 40 MG TABLET PO SCH (09:23)
[2025-01-02] MEDS: SERTRALINE 50 MG TAB PO SCH (09:23)
[2025-01-02 09:36] LABS: Chol/HDL Ratio 3.07 Ratio; LDL Cholesterol,Calculated 69.5 mg/dL (0.0-131.0)
[2025-01-02] MEDS: SODIUM CHLORIDE 0.9% 1,000 ML IV SCH (10:13)
--- NOTE | 2025-01-02 10:38 | P.PN ---
Subjective Patient is seen in follow-up for hypertension. Blood pressure on the lower end overnight and was low at 98/42 this morning. Still complains of mild headache. Creatinine 1.2. Vital signs are stable. General: No acute distress. HEENT: Head exam is unremarkable. LUNGS: No audible rhonchi or wheezes. HEART: Rate and Rhythm are regular. ABDOMEN: Nontender. EXTREMITITES: No edema. Objective - Vital Signs Vital signs: Vital Signs Temp 97.4 F L 01/02/25 08:00 Pulse 72 01/02/25 08:00 Resp 18 01/02/25 08:00 BP 98/42 01/02/25 09:24 Pulse Ox 93 L 01/02/25 08:00 FiO2 Intake & Output 01/01/25 01/02/25 01/02/25 18:59 06:59 18:59 Intake Total 342 598 360 Balance 342 598 360 Intake: Oral 342 598 360 Other: Voiding Method Toilet Toilet # Voids 1 - Labs CBC & Chem 7: 01/02/25 07:55 01/02/25 07:55 Labs: Abnormal Lab Results - Last 24 Hours (Table) 01/01/25 01/02/25 01/02/25 Range/Units 16:31 07:55 07:55 MCHC 29.8 L (31.0-37.0) g/dL RDW 16.1 H (11.5-15.5) % Lymphocytes # 0.9 L (1.0-4.8) k/uL Sodium 131 L (137-145) mmol/L Chloride 95 L (98-107) mmol/L BUN 33 H (7-17) mg/dL Creatinine 1.20 H (0.52-1.04) mg/dL Glucose 222 H (74-99) mg/dL Triglycerides 182.00 H (0.00-149.00) mg/dL Assessment and Plan Plan: Assessment: 1. Hypertensive urgency. Due to noncompliance with blood pressure meds. Renal duplex ultrasound showed atrophic right kidney. Blood pressure now on the lower end. Cortisol level 4.3. 2. Mild acute kidney injury secondary to vasomotor nephropathy secondary to hemodynamic instability. Creatinine 1.2. 3. 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 4. Coronary artery disease with cardiac stent. 5. Infrarenal aortic aneurysm. Plan: Stop amlodipine. I will decrease the dose of losartan to 25 mg. Hold Coreg and losartan for systolic blood pressure less than 120. Allergic to hydralazine Secondary workup for hypertension pending. Patient scheduled for CT angiogram of the abdomen. Discussed risk of worsening renal function with IV contrast exposure. Add normal saline at 75 cc an hour. Hep-Lock IV fluids 6 hours post CTA. Follow-up echocardiogram.
[2025-01-02] MEDS: diphenhydrAMINE 50 MG/ML 1 ML VIAL IVP PRN (11:53)
--- NOTE | 2025-01-02 13:20 | CT ---
EXAMINATION TYPE: CT angio thor/abd pel aorta DATE OF EXAM: 01/02/2025 1:00 PM COMPARISON: CT abdomen pelvis most recent from CLINICAL INDICATION: Female, 69 years old with history of aortic an, clot (rt) obstructing rt renal a rtery?, r/o aortic clot, obstructing RT renal artery, TECHNIQUE: Multiple thin slice sub-millimeter images were obtained through the chest and abdomen afte r administration of contrast. Patient was given Isovue 370, 80 mL intravenously. 3-D reconstructed images and maximum intensity projection images were obtained. One or more CT dose reduction strategies were utilized during this examination. Contrast used:80 ml mL of Isovue 370 with IV Contrast, (none if empty) Oral contrast used: (none if empty) CT DLP: 608.5 mGycm, Automated exposure control for dose reduction was used. FINDINGS: CTA Chest and Abdomen: Ascending thoracic aorta and the main pulmonary arteries 3.0 cm. Main pulmonar y artery the bifurcation is 2.6 cm. No aortic dissection is evident. Vascular calcifications within the thoracic aorta. No aneurysmal dilatation is evident. There is some mild fusiform prominence of the distal thoracic aorta at the level of the diaphragm wit h an AP dimension of 3.1 cm. Celiac axis and superior mesenteric arteries are patent. Left renal zayra ry patent. Right renal artery is not identified. Contrast however is present within the right renal c ortex. There is an abdominal aortic fusiform prominence with an AP dimension of 3.7 cm. Thrombus along the w all of the smaller flow lumen centrally. This terminates above the bifurcation and begins below the l evel left renal artery within the mid bowel aorta. Internal and external iliac arteries are patent. Common femoral arteries are patent. VISCERA ABDOMEN: Liver: Unremarkable. Gallbladder and Bile ducts: Unremarkable. Pancreas: Unremarkable. Spleen: Unremarkable. Adrenal glands: Unremarkable. Kidneys and Ureters: No hydronephrosis or renal calculus. PELVIS Bladder: Unremarkable. Reproductive: Uterus and ovaries are not identified.. ABDOMEN & PELVIS Stomach and Bowel: No evidence of bowel obstruction or bowel wall thickening. Peritoneum: No evidence of pneumoperitoneum, free fluid, or adenopathy. Musculoskeletal: The osseous structures appear intact. Lung adler appear clear. Some mild emphysematous change may be present. No enlarged mediastinal or h ilar adenopathy is evident. Air fluid filled esophagus is evident portion of the thyroid visualized i s normal. IMPRESSION: 1. Right renal artery is not identified. However, some distal vascular contrast into the atrophic ri ght kidney is evident. 2. Aneurysmal dilatation of the distal abdominal aorta. Some mild fusiform prominence of the distal descending thoracic aorta at the diaphragm is present. 3. Peripheral vascular thrombus within the abdominal aorta causing some narrowing without stenosis of the abdominal aorta. [facility], , 01/02/2025 1:18 PM
[2025-01-02] MEDS: HYDROmorphone 0.5 MG/0.5 ML SYRINGE IVP PRN (13:33)
[2025-01-02] MEDS: HYDROcodone/APAP 5-325MG 1 EACH TAB PO PRN (16:07)
[2025-01-02] MEDS: amLODIPine 5 MG TAB PO SCH (19:35)
[2025-01-02] MEDS: LOSARTAN 50 MG TAB PO SCH (19:35)
--- NOTE | 2025-01-02 20:46 | P.PN ---
Subjective Progress Note Date: 01/02/25 HISTORY OF PRESENTING ILLNESS: 69-year-old female with past medical history of CAD with known TECHNICIAN TRAINEE of RCA, hypertension, dyslipidemia, carotid stenting, infrarenal aortic aneurysm, peripheral arterial disease, 1 pack tobacco smoker with [id number] smoking history. She is known to Dr. Diaz This time she presented to the hospital because of some substernal chest heaviness along with uncontrolled blood pressure. On presentation she had symptoms of headache. Patient reports that she was feeling weak and stopped taking her medications a month ago. She was hospitalized in 10/2024 with very similar presentation. In October she was discharged home on aspirin, losartan 50, HCTZ 12.5, Imdur 30, metoprolol succinate 25 mg daily, Lipitor 40 mg daily Prior cardiac testing: Echo from October 2024 EF 60%, no obvious RWMA, no significant valvular dysfunction Aortic CT from July 2024 shows infrarenal aortic aneurysm 3.5 cm, moderate atherosclerosis at aortic bifurcation with 9 mm focal dissection of right external Ilac artery, high-grade stenosis of right renal artery Progress note 01/02/2025 Seen and examined bedside this a.m. denies any chest pain chest pressure, complaining of some abdominal discomfort, no lightheadedness dizziness, blood pressure is better controlled. PHYSICAL EXAMINATION: Neck: Brisk carotid upstroke, no jugular venous distention. Lungs: Clear to auscultation. Heart: Regular rate and rhythm, S1-S2, , no murmur or rub. Abdomen: Soft nontender, positive bowel sounds. Extremities: No edema, intact distal pulses. Neuro: Alert, oritented, no focal deficits. Detailed neuro exam was not performed. ASSESSMENT: # Essential hypertension, poorly controlled # Substernal chest pressure, likely due to above. ACS has been ruled out # Stable CAD with known TECHNICIAN TRAINEE of RCA # Infrarenal aortic aneurysm # PAD # Severe right renal artery stenosis # Hypertensive nephrosclerosis with atrophic right kidney # Medication noncompliance # 1 pack tobacco smoker with [id number] smoking history PLAN: Losartan 50 mg, Coreg 6.25 mg twice daily Amlodipine 5 mg daily Aspirin, Lipitor, Monitor blood pressure, uptitrate losartan and amlodipine and thereafter consider adding diuretics and long-acting nitrates. Patient was counseled for smoking cessation however she has explicitly told me that she would not quit Her blood pressure is stable tomorrow consider discharging with recommended outpatient follow-up Recommend outpatient Xarelto 2.5 g twice daily for PAD Objective - Vital Signs Vital signs: Vital Signs Temp 97.9 F 01/02/25 16:00 Pulse 79 01/02/25 16:00 Resp 18 01/02/25 16:00 BP 137/65 01/02/25 16:00 Pulse Ox 89 L 01/02/25 16:00 FiO2 Intake & Output 01/02/25 01/02/25 01/03/25 06:59 18:59 06:59 Intake Total 598 1140 Balance 598 1140 Intake: IV 300 Sodium Chloride 0.9% 1, 300 000 ml @ 75 mls/hr IV . [id number] [facility] Rx#:[id number] Oral 598 840 Other: Voiding Method Toilet Toilet # Voids 1 3 - Labs CBC & Chem 7: 01/02/25 07:55 01/02/25 07:55 Labs: Abnormal Lab Results - Last 24 Hours (Table) 01/01/25 01/02/25 01/02/25 Range/Units 16:31 07:55 07:55 MCHC 29.8 L (31.0-37.0) g/dL RDW 16.1 H (11.5-15.5) % Lymphocytes # 0.9 L (1.0-4.8) k/uL Sodium 131 L (137-145) mmol/L Chloride 95 L (98-107) mmol/L BUN 33 H (7-17) mg/dL Creatinine 1.20 H (0.52-1.04) mg/dL Glucose 222 H (74-99) mg/dL Triglycerides 182.00 H (0.00-149.00) mg/dL Cortisol 40.5 H (3.1-22.4) UG/DL
--- NOTE | 2025-01-03 02:27 | PN ---
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 Aortic thrombus also noted in the CT studies done today. PAST MEDICAL HISTORY: Reviewed. REVIEW OF SYSTEMS: A 14-point review of systems negative except as mentioned earlier. CURRENT MEDICATIONS: Reviewed. PHYSICAL EXAMINATION: VITAL SIGNS: Pulse 79, blood pressure 137/65, respirations 18. HEENT: Conjunctivae normal. NECK: No JVD. CARDIOVASCULAR: S1, S2. RESPIRATIONS: Breath sounds diminished at the bases. A few scattered rhonchi. ABDOMEN: Soft. NERVOUS SYSTEM: Nonfocal. LABORATORY DATA: Reviewed. ASSESSMENT: 1. Recurrent hypertensive urgency. 2. Marked right renal atrophy, possibly secondary from vascular etiology with right hypoplastic renal artery. 3. Infrarenal abdominal aortic aneurysm with moderate amount of mural thrombus and suprarenal abdominal aortic aneurysm at 3.2 cm, clot mostly on the right side. 4. Symptomatic headaches. 5. Coronary artery disease. 6. Chronic obstructive pulmonary disease. 7. Fibromyalgia. 8. Hypertension. 9. Hyperlipidemia. RECOMMENDATIONS AND DISCUSSION: I recommended to continue current management and continue symptomatic treatment. Otherwise, at this time, we will monitor the patient closely. Await hormone studies. Continue to monitor. Guarded prognosis. Further recommendations to follow. MMODL / IJN: [id number] /
[2025-01-03 06:29] LABS: Anisocytosis Slight; HCT 33.6 % (34.0-46.0); HGB 10.5 gm/dL (11.4-16.0); MCH 27.9 pg (25.0-35.0); MCHC 31.3 g/dL (31.0-37.0); MCV 88.9 fL (80.0-100.0); Mean Platelet Volume 8.3; Platelet Count 269 k/uL (150-450); RBC 3.77 m/uL (3.80-5.40); RDW 16.5 % (11.5-15.5); WBC 20.6 k/uL (3.8-10.6)
[2025-01-03 06:45] LABS: African American GFR (CKD) 58 (>60 ml/min/1.73 sqM); Anion Gap 3 mmol/L; Blood Urea Nitrogen 41 mg/dL (7-17); Calcium 9.3 mg/dL (8.4-10.2); Carbon Dioxide 28 mmol/L (22-30); Chloride 104 mmol/L (98-107); Glucose 135 mg/dL (74-99); Magnesium 2.3 mg/dL (1.6-2.3); Non-African American GFR(CKD) 50 (>60 ml/min/1.73 sqM); Potassium 4.3 mmol/L (3.5-5.1); Sodium 135 mmol/L (137-145)
[2025-01-03] MEDS: LOSARTAN 25 MG TAB PO SCH (08:03)
--- NOTE | 2025-01-03 09:57 | CA ---
Transthoracic Echo Report Name: Shantell Dela Cruz Age: 69 Gender: F : 1955 Exam Date: 01/03/2025 08:02 Exam Location: [place] [facility] Ht (in): 62 Wt (lb): 94 Ordering Physician: Darion Blanco MD ([id number]) Attending/Referring Phys: Novelty Worker Angie Bennett RDCS Procedure CPT: Indications: cardiomyopathy Cardiac Hx: Technical Quality: Good Contrast 1: Total Dose (mL): Contrast 2: Total Dose (mL): MEASUREMENTS (Male / Female) Normal Values 2D ECHO LV Diastolic Diameter PLAX 4.0 cm 4.2 - 5.9 / 3.9 - 5.3 cm LV Systolic Diameter PLAX 2.6 cm IVS Diastolic Thickness 0.8 cm 0.6 - 1.0 / 0.6 - 0.9 cm LVPW Diastolic Thickness 0.8 cm 0.6 - 1.0 / 0.6 - 0.9 cm LV Relative Wall Thickness 0.4 LVOT Diameter 2.1 cm LV Diastolic Volume MOD BP 60.8 cm??? 67 - 155 / 56 - 104 cm??? LV Systolic Volume MOD BP 23.8 cm??? 22 - 58 / 19 - 49 cm??? LV Ejection Fraction MOD BP 60.9 % >= 55 % LV Cardiac Index MOD BP 1774.7 cm???/min???m??? LV Diastolic Volume MOD 4C 65.4 cm??? LV Systolic Volume MOD 4C 26.3 cm??? LV Ejection Fraction MOD 4C 59.7 % LV Cardiac Index MOD 4C 1872.1 cm???/min???m??? LV Diastolic Length 4C 7.0 cm LV Systolic Length 4C 5.5 cm LV Diastolic Volume MOD 2C 56.0 cm??? LV Systolic Volume MOD 2C 19.9 cm??? LV Ejection Fraction MOD 2C 64.4 % LV Cardiac Index MOD 2C 1727.9 cm???/min???m??? LV Diastolic Length 2C 6.9 cm LV Systolic Length 2C 6.0 cm DOPPLER AV Peak Velocity 103.4 cm/s AV Peak Gradient 4.3 mmHg AV Mean Velocity 67.2 cm/s AV Mean Gradient 2.1 mmHg AV Velocity Time Integral 23.4 cm LVOT Peak Velocity 83.0 cm/s LVOT Peak Gradient 2.8 mmHg LVOT Velocity Time Integral 19.6 cm LVOT Stroke Volume 67.9 cm??? LVOT Stroke Volume Index 49.0 ml/m??? LVOT Cardiac Index 3253.3 cm???/min???m??? AV Area Cont Eq vti 2.9 cm??? AV Area Cont Eq pk 2.8 cm??? TR Peak Velocity 231.9 cm/s TR Peak Gradient 21.5 mmHg Right Atrial Pressure 10.0 mmHg Pulmonary Artery Systolic Pressu 31.5 mmHg Right Ventricular Systolic Press 31.5 mmHg PV Peak Velocity 90.4 cm/s PV Peak Gradient 3.3 mmHg FINDINGS Left Ventricle Left ventricular ejection fraction is estimated at 55-60 %. Left ventricular cavity size normal. Left ventricular wall thickness normal. No obvious regional wall motion abnormalities. Right Ventricle Normal right ventricular size and function. Right ventricular systolic pressure within normal limits. Right Atrium Normal right atrial size. Left Atrium Normal left atrial size. Mitral Valve Structurally normal mitral valve. No evidence for mitral valve prolapse. No mitral stenosis. Trace mitral regurgitation. Aortic Valve Trileaflet aortic valve. Aortic valve sclerosis. No aortic valve stenosis or regurgitation. Tricuspid Valve Structurally normal tricuspid valve. No tricuspid stenosis. Trace tricuspid regurgitation. Pulmonic Valve Pulmonic valve not well visualized. No pulmonic stenosis. No pulmonic regurgitation. Pericardium No pericardial effusion. Aorta Aortic annulus normal. CONCLUSIONS Normal biventricular systolic function Aortic sclerosis with no stenosis or insufficiency No pericardial effusion Previewed by: Dr. Juventino Alex MD (Electronically Signed) Final Date: 03 January 2025 09:56
--- NOTE | 2025-01-03 10:04 | P.PN ---
Subjective Patient is seen in follow-up for hypertension. Blood pressure fairly stable. Oral intake is good. Has been waiting. Vital signs are stable. General: No acute distress. HEENT: Head exam is unremarkable. LUNGS: No audible rhonchi or wheezes. HEART: Rate and Rhythm are regular. ABDOMEN: Nontender. EXTREMITITES: No edema. Objective - Vital Signs Vital signs: Vital Signs Temp 97.9 F 01/03/25 07:58 Pulse 62 01/03/25 07:58 Resp 18 01/03/25 07:58 BP 158/80 01/03/25 07:58 Pulse Ox 96 01/03/25 07:58 FiO2 Intake & Output 01/02/25 01/03/25 01/03/25 18:59 06:59 18:59 Intake Total 1140 480 Balance 1140 480 Weight 36.8 kg Intake: IV 300 Sodium Chloride 0.9% 1, 300 000 ml @ 75 mls/hr IV . [id number] [facility] Rx#:[id number] Oral 840 480 Other: Voiding Method Toilet Toilet # Voids 3 1 - Labs CBC & Chem 7: 01/03/25 06:13 01/03/25 06:13 Labs: Abnormal Lab Results - Last 24 Hours (Table) 01/02/25 01/03/25 01/03/25 Range/Units 07:55 06:13 06:13 WBC 20.6 H (3.8-10.6) k/uL RBC 3.77 L (3.80-5.40) m/uL Hgb 10.5 L (11.4-16.0) gm/dL Hct 33.6 L (34.0-46.0) % RDW 16.5 H (11.5-15.5) % Sodium 135 L (137-145) mmol/L BUN 41 H (7-17) mg/dL Creatinine 1.12 H (0.52-1.04) mg/dL Glucose 135 H (74-99) mg/dL Cortisol 40.5 H (3.1-22.4) UG/DL Assessment and Plan Plan: Assessment: 1. Hypertensive urgency. Due to noncompliance with blood pressure meds. Renal duplex ultrasound showed atrophic right kidney. Blood pressure better controlled. Cortisol level 4.3. 2. Mild acute kidney injury secondary to vasomotor nephropathy secondary to hemodynamic instability. Also received IV contrast on January 02, 2025 for CTA. Better. Creatinine 1.12 today. 3. 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 4. Coronary artery disease with cardiac stent. 5. Infrarenal aortic aneurysm. 6. Thrombus within the abdominal aorta. On anticoagulation. 7. Tobacco abuse. Plan: Maintain Coreg and losartan. Hold Coreg and losartan for systolic blood pressure less than 120. Allergic to hydralazine Secondary workup for hypertension pending. Preserved ejection fraction noted on echocardiogram. Increase dose of losartan if blood pressure staying persistently above 130/80. Strongly advised tobacco cessation.
--- NOTE | 2025-01-03 11:35 | P.GSCN ---
History of Present Illness Consult date: 01/03/25 Reason for Consult: PV thrombus abdominal aorta Requesting physician: Roberto Mcdaniels History of present illness: Patient is a 69-year-old female well-known to our service from multiple previous consultations. She has a history of known abdominal aortic aneurysm and thoracic ectasia. She has coronary artery disease status post stenting COPD, fibromyalgia, hyperlipidemia, hypertension and a daily smoker. She presented to the emergency department 4 days ago directed by her primary care physician Dr. Wilcox for elevated blood pressures. Patient stopped taking her blood pressure medications a couple months ago because of the way that they made her feel. States that she felt lightheaded and had a headache on him. She does not consult with her senior investment analyst or her PCP. Patient has history of medical noncompliance. Cardiology on consultation for hypertension, nephrology on consultation for accelerated hypertension. Patient had a CT angiogram thoracic/abdomen pelvic and aorta again reporting a of 3.7 cm fusiform abdominal aortic aneurysm with peripheral vascular thrombus. Nephrology consulted vascular surgery for abdominal aortic aneurysm and thrombus. She was seen by vascular surgery during her previous hospitalizations 07/01/2024, 07/13/2024, and July 31, 2024 secondary to abdominal aortic aneurysm she does follow with Dr. Diaz for her abdominal aortic aneurysm. There is no significant changes or concerns in this regard. She has chronic abdominal pain, medical noncompliance, blood pressures are improved. Patient currently denies any shortness of breath, chest pain, abdominal pain which is chronic, no radiation to her back. Review of Systems A 14 point review systems was completed all pertinent positives and negatives as stated in the HPI. Past Medical History Past Medical History: Coronary Artery Disease (CAD), Chest Pain / Angina, COPD, Fibromyalgia, Hyperlipidemia, Hypertension, Osteoarthritis (OA) Additional Past Medical History / Comment(s): chronic back pain, DDD, bulging discs, scoliosis, osteoporosis, PAST HX JAW FX RT-CAUSES HEADACHES - TAKES TEGRETOL, abdominal aneurysm, colitis Last Myocardial Infarction Date:: 06/29/2020 History of Any Multi-Drug Resistant Organisms: None Reported Past Surgical History: Breast Surgery, Heart Catheterization With Stent, Hysterectomy, Orthopedic Surgery Additional Past Surgical History / Comment(s): Back injections, L patellar surg torin, R carpal tunnel release, L breast benign biopsy, sinus surgery, EGD Past Anesthesia/Blood Transfusion Reactions: No Reported Reaction Date of Last Stent Placement:: 05/10/20 Past Psychological History: Anxiety, Depression Smoking Status: Current every day smoker Past Alcohol Use History: None Reported Past Drug Use History: None Reported - Past Family History Mother Family Medical History: Cancer Additional Family Medical History / Comment(s): Mother had lupus and TB Father History Unknown: Yes Medications and Allergies Home Medications Medication Instructions Recorded Confirmed Type traZODone HCL 150 mg PO HS 30 Days tablet 04/17/22 12/30/24 Rx Sertraline [Zoloft] 150 mg PO DAILY 12/23/22 12/30/24 History Aspirin/Acetaminophen/Caffeine 3 tab PO BID 10/06/24 12/30/24 History [Excedrin Extra Strength Caplet] Atorvastatin [Lipitor] 40 mg PO HS 10/06/24 12/30/24 History Famotidine [Pepcid] 20 mg PO HS PRN 10/06/24 12/30/24 History Dicyclomine [Bentyl] 10 mg PO AC-TID #90 cap 10/08/24 12/30/24 Rx Pantoprazole [Protonix] 40 mg PO DAILY #30 tab 10/08/24 12/30/24 Rx Albuterol Sulfate [Albuterol 2 puff INHALATION RT-Q4H PRN 11/04/24 12/30/24 History Sulfate Hfa] Gabapentin [Neurontin] 200 mg PO BID 11/04/24 12/30/24 History Melatonin [Melatonin ODT] 12 mg PO HS 11/04/24 12/30/24 History Aspirin 81 mg PO DAILY #30 tab 11/08/24 12/30/24 Rx Gabapentin [Neurontin] 300 mg PO DIRECTED 12/30/24 12/30/24 History Allergies Allergy/AdvReac Type Severity Reaction Status Date / Time hydralazine AdvReac TONGUE Verified 12/30/24 18:05 NUMBNESS ibuprofen AdvReac NIGHTMARES Verified 12/30/24 18:05 Iodinated Contrast Media AdvReac Nausea & Verified 12/30/24 18:05 [Iodinated Contrast Media - Vomiting IV Dye] povidone-iodine AdvReac Nausea & Verified 12/30/24 18:05 [From Betadine] Vomiting soap [From Betadine] AdvReac Nausea & Verified 12/30/24 18:05 Vomiting Surgical - Exam Vital Signs Temp Pulse Resp BP Pulse Ox 98.1 F 90 16 243/142 96 12/30/24 15:08 12/30/24 15:08 12/30/24 15:08 12/30/24 15:08 12/30/24 15:08 General appearance: The patient is alert, oriented, appears in no acute distress. HET: Head is normocephalic and atraumatic. Pupils are equal and reactive. Neck: Supple. Heart: Regular. Lungs: Equal expansion, normal respiratory effort. Abdomen: Soft, nontender, nondistended. Extremities: Normal skin color and turgor. Neurological: No focal deficits. Strength and sensation are grossly intact. Results - Labs 01/03/25 06:13 01/03/25 06:13 Abnormal Lab Results - Last 24 Hours (Table) 01/01/25 01/02/25 01/03/25 Range/Units 16:31 07:55 06:13 WBC (3.8-10.6) k/uL RBC (3.80-5.40) m/uL Hgb (11.4-16.0) gm/dL Hct (34.0-46.0) % RDW (11.5-15.5) % Sodium 135 L (137-145) mmol/L BUN 41 H (7-17) mg/dL Creatinine 1.12 H (0.52-1.04) mg/dL Glucose 135 H (74-99) mg/dL Triglycerides 182.00 H (0.00-149.00) mg/dL Cortisol 40.5 H (3.1-22.4) UG/DL 01/03/25 Range/Units 06:13 WBC 20.6 H (3.8-10.6) k/uL RBC 3.77 L (3.80-5.40) m/uL Hgb 10.5 L (11.4-16.0) gm/dL Hct 33.6 L (34.0-46.0) % RDW 16.5 H (11.5-15.5) % Sodium (137-145) mmol/L BUN (7-17) mg/dL Creatinine (0.52-1.04) mg/dL Glucose (74-99) mg/dL Triglycerides (0.00-149.00) mg/dL Cortisol (3.1-22.4) UG/DL Diabetes panel 01/01/25 01/03/25 Range/Units 16:31 06:13 Sodium 135 L (137-145) mmol/L Potassium 4.3 (3.5-5.1) mmol/L Chloride 104 (98-107) mmol/L Carbon Dioxide 28 (22-30) mmol/L BUN 41 H (7-17) mg/dL Creatinine 1.12 H (0.52-1.04) mg/dL Glucose 135 H (74-99) mg/dL Calcium 9.3 (8.4-10.2) mg/dL Triglycerides 182.00 H (0.00-149.00) mg/dL HDL Cholesterol 51.10 (40.00-60.00) mg/dL Calcium panel 01/03/25 Range/Units 06:13 Calcium 9.3 (8.4-10.2) mg/dL Pituitary panel 01/03/25 Range/Units 06:13 Sodium 135 L (137-145) mmol/L Potassium 4.3 (3.5-5.1) mmol/L Chloride 104 (98-107) mmol/L Carbon Dioxide 28 (22-30) mmol/L BUN 41 H (7-17) mg/dL Creatinine 1.12 H (0.52-1.04) mg/dL Glucose 135 H (74-99) mg/dL Calcium 9.3 (8.4-10.2) mg/dL Adrenal panel 01/03/25 Range/Units 06:13 Sodium 135 L (137-145) mmol/L Potassium 4.3 (3.5-5.1) mmol/L Chloride 104 (98-107) mmol/L Carbon Dioxide 28 (22-30) mmol/L BUN 41 H (7-17) mg/dL Creatinine 1.12 H (0.52-1.04) mg/dL Glucose 135 H (74-99) mg/dL Calcium 9.3 (8.4-10.2) mg/dL - Imaging Comments: CT angiogram thoracic/abdomen pelvis and aorta impression reads right renal artery is not identified. However some distal vascular contrast into the atrophic right kidney is evident. Aneurysmal dilation of the distal abdominal aorta. Some mild fusiform prominence of the distal descending thoracic aorta at the diaphragm is present. Peripheral vascular thrombus within the abdominal aorta causing some narrowing without stenosis of the abdominal aorta. Renal artery duplex reports mild elevation of the resistive index bilateral kidneys. Ratios of renal artery velocities remain within the normal range. Fusiform prominence of the abdominal aorta with the greatest AP dimension measuring 3.4 cm Assessment and Plan Assessment: 1. Hypertensive urgency 2. Asymptomatic infrarenal abdominal aortic aneurysm, known follows with Dr. Alex 3. Peripheral vascular thrombus within abdominal aorta without stenosis of the abdominal aorta seen on CTA 4. Medical noncompliance 5. Chronic abdominal pain 6. Coronary artery disease 7. Daily smoker 8. History of hypertension Plan: There is no indication for any vascular surgical intervention at this time. Patient can follow-up with vascular surgery in outpatient setting. Also follows with Dr. Alex for coronary artery disease and has been monitoring abdominal aortic aneurysm. Discussed with patient importance of medical compliance, maintaining optimal blood pressures and discussed again importance of smoking cessation. Recommend continuing nicotine patch. Continue with recommendations from cardiology and nephrology for blood pressure management. Thank you for this consultation, we will sign off at this time. Dr. Loving I performed a history and examination of this patient, discussed the same with the dictator. I agree with the dictator's note ,documented as a scribe. Any additional findings or plans will be noted.
[2025-01-03] MEDS: RIVAROXABAN 2.5 MG TABLET PO SCH (11:51)
--- NOTE | 2025-01-03 11:59 | P.PN ---
Subjective Progress Note Date: 01/03/25 HISTORY OF PRESENTING ILLNESS: 69-year-old female with past medical history of CAD with known MIXED CROP FARMER of RCA, hypertension, dyslipidemia, carotid stenting, infrarenal aortic aneurysm, peripheral arterial disease, 1 pack tobacco smoker with [id number] smoking history. She is known to Dr. Diaz This time she presented to the hospital because of some substernal chest heaviness along with uncontrolled blood pressure. On presentation she had symptoms of headache. Patient reports that she was feeling weak and stopped taking her medications a month ago. She was hospitalized in 10/2024 with very similar presentation. In October she was discharged home on aspirin, losartan 50, HCTZ 12.5, Imdur 30, metoprolol succinate 25 mg daily, Lipitor 40 mg daily Prior cardiac testing: Echo from October 2024 EF 60%, no obvious RWMA, no significant valvular dysfunction Aortic CT from July 2024 shows infrarenal aortic aneurysm 3.5 cm, moderate atherosclerosis at aortic bifurcation with 9 mm focal dissection of right external Ilac artery, high-grade stenosis of right renal artery Progress note 01/02/2025 Seen and examined bedside this a.m. denies any chest pain chest pressure, complaining of some abdominal discomfort, no lightheadedness dizziness, blood pressure is better controlled. 01/03 Patient seen and examined. She states that she slept well last night. She states her breathing is getting better. She remains on oxygen therapy. Pulse ox 96% on 2 L nasal cannula, blood pressure 158/80, heart rate is in the 60s. Repeat blood work reveals WBC 20.6, hemoglobin 10.5, sodium 135, potassium 4.3, BUN 41 and creatinine 1.12. Limited echocardiogram reveals EF 55 to 60%, aortic sclerosis without stenosis or insufficiency. No pericardial effusion. PHYSICAL EXAMINATION: Neck: Brisk carotid upstroke, no jugular venous distention. Lungs: Decreased air exchange bilaterally. Heart: Regular rate and rhythm, S1-S2, 2/6 systolic murmur. Abdomen: Soft nontender, positive bowel sounds. Extremities: No edema, intact distal pulses. Neuro: Alert, oritented, no focal deficits. Detailed neuro exam was not performed. ASSESSMENT: # Essential hypertension, poorly controlled # Substernal chest pressure, likely due to above. ACS has been ruled out # Stable CAD with known MIXED CROP FARMER of RCA # Infrarenal aortic aneurysm # PAD # Severe right renal artery stenosis # Hypertensive nephrosclerosis with atrophic right kidney # Medication noncompliance # 1 pack tobacco smoker with [id number] smoking history PLAN: Continue patient on losartan decreased to 25 mg by nephrology, and continue Coreg 12.5 mg twice daily Continue aspirin, Lipitor, Discontinue as needed clonidine so blood pressure trends can be fully assessed and guide treatment Monitor blood pressure, uptitrate losartan thereafter consider adding diuretics and long-acting nitrates. BMP tomorrow Start patient on Xarelto 2.5 mg twice daily for PAD Patient was counseled for smoking cessation however she has explicitly told me that she would not quit. Patient will be provided the [place] quit line information at discharge. Nurse practitioner note has been reviewed, I agree with documented findings and plan of care. Objective - Vital Signs Vital signs: Vital Signs Temp 97.9 F 01/03/25 07:58 Pulse 62 01/03/25 07:58 Resp 18 01/03/25 07:58 BP 158/80 01/03/25 07:58 Pulse Ox 96 01/03/25 07:58 FiO2 Intake & Output 01/02/25 01/03/25 01/03/25 18:59 06:59 18:59 Intake Total 1140 480 Balance 1140 480 Weight 36.8 kg Intake: IV 300 Sodium Chloride 0.9% 1, 300 000 ml @ 75 mls/hr IV . [id number] [facility] Rx#:[id number] Oral 840 480 Other: Voiding Method Toilet Toilet # Voids 3 1 - Labs CBC & Chem 7: 01/03/25 06:13 01/03/25 06:13 Labs: Abnormal Lab Results - Last 24 Hours (Table) 01/01/25 01/02/25 01/03/25 Range/Units 16:31 07:55 06:13 WBC (3.8-10.6) k/uL RBC (3.80-5.40) m/uL Hgb (11.4-16.0) gm/dL Hct (34.0-46.0) % RDW (11.5-15.5) % Sodium 135 L (137-145) mmol/L BUN 41 H (7-17) mg/dL Creatinine 1.12 H (0.52-1.04) mg/dL Glucose 135 H (74-99) mg/dL Triglycerides 182.00 H (0.00-149.00) mg/dL Cortisol 40.5 H (3.1-22.4) UG/DL 01/03/25 Range/Units 06:13 WBC 20.6 H (3.8-10.6) k/uL RBC 3.77 L (3.80-5.40) m/uL Hgb 10.5 L (11.4-16.0) gm/dL Hct 33.6 L (34.0-46.0) % RDW 16.5 H (11.5-15.5) % Sodium (137-145) mmol/L BUN (7-17) mg/dL Creatinine (0.52-1.04) mg/dL Glucose (74-99) mg/dL Triglycerides (0.00-149.00) mg/dL Cortisol (3.1-22.4) UG/DL
--- NOTE | 2025-01-04 03:05 | PN ---
PROGRESS NOTE DATE OF SERVICE: 01/03/2025 SUBJECTIVE: This is a 69-year-old woman, who was admitted with accelerated hypertension, also had atrophic kidney. No chest pain. No palpitations. No fever. Secondary hypertension workup is pending at this time. OBJECTIVE: VITAL SIGNS: Pulse is 68, blood pressure 127/70, respirations 16. CHEST: A few scattered rhonchi and crackles. ABDOMEN: Soft. NERVOUS SYSTEM: Nonfocal. LABORATORY DATA: WBC 20.6, rest of the labs are noted. ASSESSMENT: 1. Recurrent hypertensive urgency. 2. Marked right renal atrophy, possibly secondary from vascular etiology with right hypoplastic renal artery. 3. Infrarenal abdominal aortic aneurysm as well as moderate amount of mural thrombus and suprarenal abdominal aortic aneurysm with a 3.2 cm clot mostly on the right side. 4. Symptomatic headache. 5. Coronary artery disease. 6. Chronic obstructive pulmonary disease. 7. Fibromyalgia. 8. Hypertension. 9. Hyperlipidemia. RECOMMENDATIONS AND DISCUSSION: Recommended to continue current management and continue symptomatic treatment. Otherwise, at this time, I recommend repeat labs. White count is significantly elevated, most likely due to steroids. We will continue to monitor. Recommended serum renin and angiotensin 2 also. Further recommendations to follow. MMODL / IJN: [id number] /
[2025-01-04 04:36] LABS: Basophils # (A) 0.04 10*3/uL (0.00-0.10); Basophils % (A) 0.4 %; Eosinophils # (A) 0.06 10*3/uL (0.04-0.35); Eosinophils % (A) 0.5 %; HCT 32.3 % (37.2-46.3); HGB 10.5 g/dL (12.0-15.0); Lymphocytes # (A) 4.53 10*3/uL (0.90-5.00); Lymphocytes % (A) 40.4 %; MCH 28.5 pg (27.0-32.0); MCHC 32.5 g/dL (32.0-37.0); MCV 87.5 fL (80.0-97.0); Mean Platelet Volume 10.7 fL (9.5-12.2); Monocytes # (A) 0.72 10*3/uL (0.20-1.00); Monocytes % (A) 6.4 %; Neutrophils # (A) 5.84 10*3/uL (1.80-7.70); Platelet Count 273 10*3/uL (140-440); RBC 3.69 10*6/uL (4.10-5.20); WBC 11.22 10*3/uL (4.50-10.00)
[2025-01-04 04:46] LABS: ALT 16 U/L (4-34); AST 20 U/L (14-36); African American GFR (CKD) 59 (>60 ml/min/1.73 sqM); Albumin 3.1 g/dL (3.5-5.0); Alkaline Phosphatase 81 U/L (38-126); Anion Gap 4 mmol/L; Blood Urea Nitrogen 40 mg/dL (7-17); Calcium 9.3 mg/dL (8.4-10.2); Carbon Dioxide 29 mmol/L (22-30); Chloride 105 mmol/L (98-107); Glucose 103 mg/dL (74-99); Non-African American GFR(CKD) 51 (>60 ml/min/1.73 sqM); Sodium 138 mmol/L (137-145); Total Bilirubin 0.2 mg/dL (0.2-1.3); Total Protein 5.6 g/dL (6.3-8.2)
[2025-01-04 05:24] LABS: RBC Morphology Normal
[2025-01-04 08:16] VITALS: RESP 16
--- NOTE | 2025-01-04 10:11 | P.PN ---
Subjective Patient is seen in follow-up for hypertension. Blood pressure fairly stable. Oral intake is good. Has been voiding. Vital signs are stable. General: No acute distress. HEENT: Head exam is unremarkable. LUNGS: No audible rhonchi or wheezes. HEART: Rate and Rhythm are regular. ABDOMEN: Nontender. EXTREMITITES: No edema. Objective - Vital Signs Vital signs: Vital Signs Temp 97.8 F 01/04/25 07:25 Pulse 59 L 01/04/25 07:25 Resp 16 01/04/25 07:25 BP 152/80 01/04/25 07:25 Pulse Ox 94 L 01/04/25 07:25 FiO2 Intake & Output 01/03/25 01/04/25 01/04/25 18:59 06:59 18:59 Intake Total 920 10 Balance 920 10 Weight 38.4 kg Intake: IV 10 Invasive Line 2 10 Oral 920 Other: Voiding Method Toilet # Voids 1 - Labs CBC & Chem 7: 01/04/25 03:19 01/04/25 03:19 Labs: Abnormal Lab Results - Last 24 Hours (Table) 01/04/25 01/04/25 Range/Units 03:19 03:19 WBC 11.22 H (4.50-10.00) 10*3/uL RBC 3.69 L (4.10-5.20) 10*6/uL Hgb 10.5 L (12.0-15.0) g/dL Hct 32.3 L (37.2-46.3) % BUN 40 H (7-17) mg/dL Creatinine 1.10 H (0.52-1.04) mg/dL Glucose 103 H (74-99) mg/dL Total Protein 5.6 L (6.3-8.2) g/dL Albumin 3.1 L (3.5-5.0) g/dL Assessment and Plan Plan: Assessment: 1. Hypertensive urgency. Due to noncompliance with blood pressure meds. Renal duplex ultrasound showed atrophic right kidney. Blood pressure stable. Cortisol level 4.3. 2. Mild acute kidney injury secondary to vasomotor nephropathy secondary to he modynamic instability. Also received IV contrast on January 02, 2025 for CTA. Better. Creatinine 1.1 today. 3. 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 4. Coronary artery disease with cardiac stent. 5. Infrarenal aortic aneurysm. 6. Thrombus within the abdominal aorta. On anticoagulation. 7. Tobacco abuse. Plan: Maintain Coreg and losartan. Increase losartan frequency to twice daily. Hold losartan for systolic blood pressure less than 115. Allergic to hydralazine Secondary workup for hypertension pending. Preserved ejection fraction noted on echocardiogram. Increase dose of losartan if blood pressure staying persistently above 130/80. Strongly advised tobacco cessation.
--- NOTE | 2025-01-04 10:48 | P.PN ---
Subjective Progress Note Date: 01/04/25 Patient is seen and examined today as a follow-up. She states that overall she is doing well she just is tired. No complaints of abdominal pain, chest pain or shortness of breath. Cardiology and nephrology continue to follow patient. Blood pressures have improved. Objective - Vital Signs Vital signs: Vital Signs Temp 97.8 F 01/04/25 07:25 Pulse 59 L 01/04/25 07:25 Resp 16 01/04/25 07:25 BP 152/80 01/04/25 07:25 Pulse Ox 94 L 01/04/25 07:25 FiO2 Intake & Output 01/03/25 01/04/25 01/04/25 18:59 06:59 18:59 Intake Total 920 10 Balance 920 10 Weight 38.4 kg Intake: IV 10 Invasive Line 2 10 Oral 920 Other: Voiding Method Toilet # Voids 1 - Exam General appearance: The patient is alert, oriented, appears in no acute distress. HET: Head is normocephalic and atraumatic. Pupils are equal and reactive. Neck: Supple. Heart: Regular. Lungs: Equal expansion, normal respiratory effort. Abdomen: Soft, nontender, nondistended. Extremities: Normal skin color and turgor. Neurological: No focal deficits. Lower extremities warm to the touch, good capillary refill. - Labs CBC & Chem 7: 01/04/25 03:19 01/04/25 03:19 Labs: Abnormal Lab Results - Last 24 Hours (Table) 01/04/25 01/04/25 Range/Units 03:19 03:19 WBC 11.22 H (4.50-10.00) 10*3/uL RBC 3.69 L (4.10-5.20) 10*6/uL Hgb 10.5 L (12.0-15.0) g/dL Hct 32.3 L (37.2-46.3) % BUN 40 H (7-17) mg/dL Creatinine 1.10 H (0.52-1.04) mg/dL Glucose 103 H (74-99) mg/dL Total Protein 5.6 L (6.3-8.2) g/dL Albumin 3.1 L (3.5-5.0) g/dL Assessment and Plan Assessment: 1. Hypertensive urgency 2. Asymptomatic infrarenal abdominal aortic aneurysm, known follows with Dr. Alex 3. Occluded/hypoplastic right renal artery. Peripheral vascular thrombus within abdominal aorta without stenosis of the abdominal aorta seen on CTA 4. Medical noncompliance 5. Chronic abdominal pain 6. Coronary artery disease 7. Daily smoker 8. History of hypertension Plan: There is no indication for any vascular surgical intervention at this time. Continue medical management. Continue anticoagulation as ordered from cardiology. Patient can follow-up with vascular surgery in outpatient setting. Also follows with Dr. Alex for coronary artery disease and has been monitoring abdominal aortic aneurysm. Discussed with patient importance of medical compliance, maintaining optimal blood pressures and discussed again importance of smoking cessation. Recommend continuing nicotine patch. Continue with recommendations from cardiology and nephrology for blood pressure management. Thank you for this consultation, we will sign off at this time. Dr. Nunez I performed a history and examination of this patient, discussed the same with the dictator. I agree with the dictator's note ,documented as a scribe. Any additional findings or plans will be noted.
[2025-01-04 12:07] LABS: Cortisol, Urine Free by LC-MS 21.3 ug/L
[2025-01-04 12:31] LABS: Dopamine 24 Hr Urine 112 ug/day (65-400); Epinephrine 24 Hr Urine 5 ug/day (0-20); Norepinephrine 24 Hr Urine 16 ug/day (15-80); Total Catecholamines Urine 21 ug/day (15-100); Urine Creatinine,24 Hr 0.5 gm/24h (0.8-1.8)
[2025-01-04] MEDS: FUROSEMIDE 10 MG/ML 2 ML VIAL IV STA (13:08)
[2025-01-04 13:24] VITALS: BP 163/83; PULSE 70; TEMP 98
[2025-01-04 13:45] LABS: Metanephrines 24 Hour,Urine 102 ug/day (52-341); Normetanephrine 24 Hour,Urine 171 ug/day (88-444); Total Metanephrines 24 Hour,Ur 273 ug/day (140-785); Urine Creatinine, 24 Hr 0.5 gm/24h (0.8-1.8)
--- NOTE | 2025-01-04 14:16 | P.PN ---
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 She is known to Dr. Diaz This time she presented to the hospital because of some substernal chest heaviness along with uncontrolled blood pressure. On presentation she had symptoms of headache. Patient reports that she was feeling weak and stopped taking her medications a month ago. She was hospitalized in 10/2024 with very similar presentation. In October she was discharged home on aspirin, losartan 50, HCTZ 12.5, Imdur 30, metoprolol succinate 25 mg daily, Lipitor 40 mg daily Prior cardiac testing: Echo from October 2024 EF 60%, no obvious RWMA, no significant valvular dysfunction Aortic CT from July 2024 shows infrarenal aortic aneurysm 3.5 cm, moderate atherosclerosis at aortic bifurcation with 9 mm focal dissection of right external Ilac artery, high-grade stenosis of right renal artery Progress note 01/02/2025 Seen and examined bedside this a.m. denies any chest pain chest pressure, complaining of some abdominal discomfort, no lightheadedness dizziness, blood pressure is better controlled. 01/03 Patient seen and examined. She states that she slept well last night. She states her breathing is getting better. She remains on oxygen therapy. Pulse ox 96% on 2 L nasal cannula, blood pressure 158/80, heart rate is in the 60s. Repeat blood work reveals WBC 20.6, hemoglobin 10.5, sodium 135, potassium 4.3, BUN 41 and creatinine 1.12. Limited echocardiogram reveals EF 55 to 60%, aortic sclerosis without stenosis or insufficiency. No pericardial effusion. 01/04/2025 Patient examined this morning to bedside. Patient currently denies chest pain or pressure. She denies shortness of breath. Patient currently reports abdominal pain and nausea. Blood pressure this morning 152/80. Previous blood pressure 167/90. PHYSICAL EXAM: VITAL SIGNS: Reviewed. GENERAL: Well-developed in no acute distress. NECK: Supple. No JVD or thyromegaly LUNGS: Respirations even and unlabored. Lungs with crackles at the bases HEART: Regular rate and rhythm. S1 and S2 heard. EXTREMITIES: Normal range of motion. No clubbing or cyanosis. Peripheral pulses intact. No lower extremity edema ASSESSMENT: # Essential hypertension, poorly controlled # Substernal chest pressure, likely due to above. 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 Signing provider agrees with the documented findings, assessment, and plan of care documented by HYDRAMATIC MECHANIC as a scribe. Objective - Vital Signs Vital signs: Vital Signs Temp 97.8 F 01/04/25 07:25 Pulse 59 L 01/04/25 07:25 Resp 16 01/04/25 07:25 BP 152/80 01/04/25 07:25 Pulse Ox 94 L 01/04/25 07:25 FiO2 Intake & Output 01/03/25 01/04/25 01/04/25 18:59 06:59 18:59 Intake Total 920 10 Balance 920 10 Weight 38.4 kg Intake: IV 10 Invasive Line 2 10 Oral 920 Other: Voiding Method Toilet # Voids 1 # Bowel Movements 1 - Labs CBC & Chem 7: 01/04/25 03:19 01/04/25 03:19 Labs: Abnormal Lab Results - Last 24 Hours (Table) 12/31/24 12/31/24 01/04/25 Range/Units 17:15 17:15 03:19 WBC 11.22 H (4.50-10.00) 10*3/uL RBC 3.69 L (4.10-5.20) 10*6/uL Hgb 10.5 L (12.0-15.0) g/dL Hct 32.3 L (37.2-46.3) % BUN (7-17) mg/dL Creatinine (0.52-1.04) mg/dL Glucose (74-99) mg/dL Total Protein (6.3-8.2) g/dL Albumin (3.5-5.0) g/dL Ur Free Cortisol 24 Hr 57.0 H (<45.0) ug/day Urine Creatinine 0.5 L (0.8-1.8) gm/24h 01/04/25 Range/Units 03:19 WBC (4.50-10.00) 10*3/uL RBC (4.10-5.20) 10*6/uL Hgb (12.0-15.0) g/dL Hct (37.2-46.3) % BUN 40 H (7-17) mg/dL Creatinine 1.10 H (0.52-1.04) mg/dL Glucose 103 H (74-99) mg/dL Total Protein 5.6 L (6.3-8.2) g/dL Albumin 3.1 L (3.5-5.0) g/dL Ur Free Cortisol 24 Hr (<45.0) ug/day Urine Creatinine (0.8-1.8) gm/24h
[2025-01-04 15:00] VITALS: BMI 15.5
[2025-01-04] MEDS ORDERED: LOSARTAN 25 MG TAB PO SCH (21:00)
== END 2025-01-04 15:52 | disposition home or self-care (01) | DRG 304 ==
LOC: EC 15:01 → 6NMEDSUR 18:30 → OBSVTOIN 18:31 → 6NMEDSUR 20:32 → 3SCARD 01-01 20:54 → 4SSUR 01-04 01:05
PROVIDERS: ADMIT Hospitalist; ATTEND Hospitalist
DX: I16.0 Hypertensive urgency (principal); N17.0 Acute kidney failure with tubular necrosis; I51.3 Intracardiac thrombosis, not elsewhere classified; I12.9 Hypertensive chronic kidney disease with stage 1 through stage 4 chronic kidney disease, or unspecified chronic kidney disease; J44.9 Chronic obstructive pulmonary disease, unspecified; I71.43 Infrarenal abdominal aortic aneurysm, without rupture; E78.5 Hyperlipidemia, unspecified; N18.2 Chronic kidney disease, stage 2 (mild); I25.10 Atherosclerotic heart disease of native coronary artery without angina pectoris; I73.9 Peripheral vascular disease, unspecified; I70.1 Atherosclerosis of renal artery; G89.29 Other chronic pain; R10.9 Unspecified abdominal pain; I71.41 Pararenal abdominal aortic aneurysm, without rupture; M79.7 Fibromyalgia; R07.89 Other chest pain; F17.210 Nicotine dependence, cigarettes, uncomplicated; I25.82 Chronic total occlusion of coronary artery; Z91.148 Patient's other noncompliance with medication regimen for other reason; Z79.899 Other long term (current) drug therapy; Z79.82 Long term (current) use of aspirin; Z88.6 Allergy status to analgesic agent; Z91.041 Radiographic dye allergy status; Z91.09 Other allergy status, other than to drugs and biological substances; Z91.199 Patient's noncompliance with other medical treatment and regimen due to unspecified reason; Q27.2 Other congenital malformations of renal artery; Z95.5 Presence of coronary angioplasty implant and graft; I25.2 Old myocardial infarction; Z90.710 Acquired absence of both cervix and uterus; Z91.128 Patient's intentional underdosing of medication regimen for other reason
CPT/HCPCS: 36415; 70450; 71275; 74174; 80048; 80053; 80061; 82088; 82164; 82384; 82530; 82533; 83036; 83735; 83835; 83880; 84244; 84443; 84484; 85025; 85027; 85610; 93005; 93308; 93975; 94640; 96374; 96375; 96376; 99285